=== PATIENT | female | born 1945 | race Caucasian/White ===

== ENCOUNTER 2019-10-12 14:14 | Inpatient (IN) ==
[2019-10-12] MEDS ORDERED: ACETAMINOPHEN 325 MG TAB PO PRN (18:04)
[2019-10-12] MEDS ORDERED: MELATONIN 3 MG TAB PO PRN (18:54)
--- NOTE | 2019-10-12 19:12 | History & Physical Report ---
Date of Service October 12, 2019 Assessment & Plan (1) Pelvic mass: -Admit to [facility] -Patient referred for direct admission by Dr. Arenas for concerns of ascites and further work-up of pelvic mass -For the past few weeks, patient has been having loose stools with worsening abdominal distention and discomfort. -CT ABD/pelvis 09/22/2019 Large pelvic mass or masses, inseparable from some of the pelvic bowel as well as uterus/adnexa. Underlying wall thickening of the rectosigmoid colon. This may reflect primary distal colonic tumor with ovarian and peritoneal metastases. Alternatively, this could reflect primary [employer] malignancy with extensive peritoneal metastases. Suspect left adrenal metastasis. Multiple lymph node metastases. -Patient was evaluated by outpatient [facility] and referred to [facility] oncology [facility], however they are awaiting biopsy before scheduling appointment -Check ultrasound for ascites, and if there is enough fluid, will order paracentesis with fluid studies for tomorrow -Ultrasound-guided biopsy of mass (this is been discussed with radiology) (2) Hypertension: -BP elevated, likely situational -Continue home amlodipine, carvedilol, losartan and make adjustments as needed (3) DVT prophylaxis: -SCDs due to procedure tomorrow Admission and Anticipated Discharge Date Admission Date: October 12, 2019 History of Present Illness Chief Complaint: Abdominal distention Primary Care Provider: Rachel Centeno MD 73-year-old female with PMH HTN, moderate mitral valve regurgitation, history of breast cancer, and other problems listed below who was referred for direct admission by Dr. Arenas for evaluation of suspected ascites. Patient reports about 1 month ago she developed loose, black stools. She was seen by her PCP who ordered a CT ABD/pelvis that showed a large pelvic mass with extensive peritoneal metastases. Patient was evaluated by [facility] and was referred to [facility] oncology. Patient has not had a biopsy performed yet. She was seen by Dr. Arenas today who was concerned for development of ascites and referred the patient for direct admission. Patient reports slowly progressive abdominal distention and discomfort over the past few weeks. She reports she continues to have loose stools. Patient reports her appetite has been fair. She denies nausea and vomiting. No fevers, chills, night sweats. Denies chest pain or shortness of breath. No lightheadedness, dizziness, diaphoresis, syncopal events. Denies urinary symptoms. At the time my exam, patient is resting in bed in no acute distress. Allergies Allergy/AdvReac Type Severity Reaction Status Date / Time No Known Allergies Allergy Unverified 09/22/19 19:50 Home Medications Home Medications Medication Instructions Recorded Confirmed Type Restasis 1 drp OPHTHALMIC (EYE) Q12H 08/18/18 10/12/19 History ergocalciferol (vitamin D2) 50,000 unit PO UD 08/18/18 10/12/19 History [Vitamin D2] multivitamin 1 tab PO QAM 08/18/18 10/12/19 History alum-mag hydroxide-simeth [Mylanta 5 ml PO QID PRN 09/22/19 10/12/19 History Maximum Strength] amlodipine [Norvasc] 5 mg PO DAILY 09/22/19 10/12/19 History ascorbic acid (vitamin C) [Vitamin 1 g PO DAILY 09/22/19 10/12/19 History C] atorvastatin [Lipitor] 10 mg PO DAILY 09/22/19 10/12/19 History carvedilol [Coreg] 3.125 mg PO BID 09/22/19 10/12/19 History cyanocobalamin (vitamin B-12) 3,000 mcg PO DAILY 09/22/19 10/12/19 History [Vitamin B-12] cyclosporine [Restasis] 1 drp OPB DAILY 09/22/19 10/12/19 History denosumab [Prolia] 60 mg SUBCUT .Q6MO 09/22/19 10/12/19 History indomethacin 50 mg PO TID PRN 09/22/19 10/12/19 History losartan [Cozaar] 100 mg PO DAILY 09/22/19 10/12/19 History melatonin-chamomile flower 1 tab PO HS 09/22/19 10/12/19 History potassium chloride 20 meq PO DAILY 09/22/19 10/12/19 History Past Med/Surg History Medical History Chronic back pain Degenerative disc disease History of breast cancer Rt - 17 years ago - S/p Rt mastectomy, chemo + radiation, Lt - 2018 - s/p lumpectomy x 2, raidation History of depression History of gastric ulcer History of kidney stones History of uterine fibroid Hypertension Limb alert care status RUE Malignant neoplasm of central portion of left breast in female, estrogen receptor negative (Inactive 02/26/17) "Abnormal left breast mammogram Status post ultrasound-guided stereotactic core needle biopsy February 26, 2017 Invasive lobular carcinoma grade 2 Estrogen receptor negative and progesterone receptor negative. Tumor size 2 mm. Unable to perform HER-2/ted testing. Status post needle localization lumpectomy and sentinel lymph node biopsy April 14, 2017 Stage pT1a pN0M0 Status post reexcision May 26, 2017, benign Status post medical oncology evaluation, chemotherapy not required Status post completion of radiation therapy September 08, 2017. She received 5130 centigrade utilizing hypo-fractionation." On 07/21/17 11:50 Razia Stephenson wrote "Abnormal left breast mammogram Status post ultrasound-guided stereotactic core needle biopsy February 26, 2017 Invasive lobular carcinoma grade 2 Estrogen receptor negative and progesterone receptor negative. Tumor size 2 mm. Unable to perform HER-2/ted testing. Status post needle localization lumpectomy and sentinel lymph node biopsy April 14, 2017 Stage pT1a pN0M0 Status post reexcision May 26, 2017, benign Status post medical oncology evaluation, chemotherapy not required" On 07/21/17 11:39 Razia Stephenson wrote "Abnormal left breast mammogram Status post ultrasound-guided stereotactic core needle biopsy February 26, 2017 Invasive lobular carcinoma grade 2 Estrogen receptor negative and progesterone receptor negative. Inadequate amount of tissue for HER-2/ted testing lesion 2 mm in size Status post needle localization lumpectomy and sentinel lymph node biopsy April 14, 2017 Stage pT1a pN0M0 Status post reexcision May 26, 2017, benign Status post medical oncology evaluation, chemotherapy not required" Osteoarthritis Osteoporosis Spinal stenosis Temporomandibular joint disorder Valvular heart disease Surgical History History of breast biopsy History of foot surgery BL History of lumpectomy of left breast x 2 History of tooth extraction Hx of right mastectomy Status post correction of deviated nasal septum Family History Father Esophageal cancer Social History Smoking Status: Former smoker Second Hand Exposure: No; Hx Alcohol Use: Yes Alcohol type: beer Hx Substance Use: No Preferred Language: Indonesian Communication Ability: Effective Shipper Receiver Required: No Beliefs That Will Affect Care: None Current Living Situation: Alone Current Living Situation Comment: senior apartments - [facility] Other Information That Helps Us Care for You: No Feels Safe at Home: Yes Safety Concerns: Feels Safe At This Time Review of Systems Review of Systems: ROS per HPI, all other systems reviewed and negative Physical Exam Constitutional: WD/WN, vitals as above Eyes: PERRL, conjunctivae normal, anicteric sclerae ENMT: external ear and nose normal, oropharynx normal Respiratory: normal respiratory effort, lungs clear to auscultation Cardiovascular: Rate/Rhythm: regular rate and regular rhythm Vessels: normal peripheral pulses Extremities: no edema Gastrointestinal (Abdomen): Inspection/Auscultation: + abdomen distended (Semi-firm) and normal bowel sounds Percussion/Palpation: abdomen nontender and no hepatosplenomegaly Musculoskeletal: no cyanosis or clubbing, extremities motor strength 5/5 Skin: no rashes, warm and dry Neurologic: PERRL, EOMI, accommodation nl, no face palsy, no dysarthria Psychiatric: A+Ox3, euthymic affect Results & Data Results & Data ([facility]) Vital Signs (Past 12 Hours) Vital Signs Temp Pulse Resp BP Pulse Ox 10/12/19 17:52 36.7 C 81 18 172/82 H 100 Code Status & VTE Plan Code Status Patient is a full code as per my discussion with her. VTE Prophylaxis Plan VTE Prophylaxis will be ordered: Yes Supervising Physician Co-Signing Physician Notes Patient was seen and examined by me, care coordinated with Marilyn Hu NP. Please see her note above for further details. Mrs. Camarillo is a 73-year-old female, with history of breast cancer, positive BRCA 1 gene, pulmonary hypertension, severe mitral regurg, moderate TR, hypertension, LVH, OA spinal stenosis who presents for evaluation of pelvic mass, as direct admission from oncology office, seen by Dr. Mc today. Mrs Camarillo reports having dark stools for the past 3 weeks, and was being evaluated by her PCP for that, obtaining imaging. She was informed of pelvic mass earlier, and was sent to emergency room. She was in the ED on September 22 wever at that time patient refused admission. She was however referred for gynecology and oncology follow-ups. She was seen by oncologist, Dr. Mc today, and due to concern for ascites, paracentesis was recommended, and given that there was no biopsy of her mass done yet, also recommend pelvic mass biopsy. Currently patient is sitting up in bed, in no acute distress. She denies any fevers, chills, chest pain, shortness of breath. She reports her abdomen feels very distended and she has to use bathroom -to urinate and have bowel movements, frequently. She denies any vomiting or poor appetite. She has persistent right lower quadrant pain/discomfort. She reports that she had to cut her pants at her waistline as her abdomen got bigger. She is alert and oriented, and answering questions appropriately. Lung sounds are clear to auscultation bilaterally, no wheezing rhonchi or crackles noted. Heart sounds are regular, with systolic murmur noted. She is able to move all extremities spontaneously and without difficulty, no lower extremity edema noted. Abdomen is distended, not rigid, bowel sounds are present, and there is right lower quadrant tenderness to palpation. Skin is warm, dry, well perfused, no rashes or lesions. Plan for abdominal ultrasound, and possible paracentesis tomorrow, and plan for biopsy of pelvic mass by radiology. Steffanie Gunn MD
[2019-10-12 19:46] LABS: Hematocrit (blood only) 29.9 % (37-47); Hemoglobin 10.3 g/dL (12.0-16.0); Mean Corpuscular Hemoglobin 29.6 pg (25-34); Mean Corpuscular Hgb Conc 34.4 g/dL (32-36); Mean Corpuscular Volume 85.9 fL (80-100); Mean Platelet Volume 8.3 fL (7.4-10.4); Platelet Count 630 K/uL (130-400); RDW Coefficient of Variation 13.6 % (11.5-14.5); Red Blood Count 3.48 M/uL (4.2-5.4); White Blood Count 8.69 K/uL (4.8-10.8)
[2019-10-12 19:53] LABS: Albumin Level 3.3 gm/dl (3.4-5.0); BUN Creatinine Ratio 31.4 (10-20); Calcium 9.7 mg/dl (8.5-10.1); Creatinine Clr Calc Pharmacy 76.1 ml/min; Est GFR (Non-African American) 100.1; Potassium 3.8 mmol/L (3.5-5.1); Prothrombin Time 10.3 Seconds (9.0-12.0)
[2019-10-12 19:56] LABS: Albumin Globulin Ratio 0.7 (0.9-2); Bilirubin,Total 0.3 mg/dl (0.2-1); Phosphorus 4.8 mg/dl (2.5-4.9); Total Protein 8.3 gm/dl (6.4-8.2)
[2019-10-12] MEDS: carvediloL 3.125 MG TAB PO SCH (21:23)
--- NOTE | 2019-10-13 06:34 | Ultrasound Report ---
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 Large, vascular and partially calcified mass in the abdomina l right lower quadrant mesentery/peritoneum measuring up to 9.1 cm. IMPRESSION: 1. Trace abdominopelvic ascites. No large drainable pocket identified. 2. Large pelvic mass redemonstrated. ACT 112: Negative or not required by law. The above report was generated using voice recognition software. It may contain grammatical, syntax o r spelling errors. Electronically signed by: Tomas Solano M.D. 10/13/2019 6:32 AM
[2019-10-13 07:41] LABS: Hemoglobin 10.2 g/dL (12.0-16.0); Mean Corpuscular Volume 88.2 fL (80-100); Platelet Count 544 K/uL (130-400); RDW Coefficient of Variation 13.8 % (11.5-14.5); RDW Standard Deviation 44.6 fL (36.4-46.3); White Blood Count 5.95 K/uL (4.8-10.8)
[2019-10-13 08:10] LABS: Calcium 8.9 mg/dl (8.5-10.1); Creatinine Clr Calc Pharmacy 60.4 ml/min; Est GFR (African American) 107.5; Est GFR (Non-African American) 92.7; Potassium 3.9 mmol/L (3.5-5.1)
[2019-10-13] MEDS ORDERED: AMLODIPINE BESYLATE 5 MG TAB PO SCH (09:00)
[2019-10-13] MEDS ORDERED: LOSARTAN POTASSIUM 50 MG TAB PO SCH (09:00)
[2019-10-13] MEDS ORDERED: ATORVASTATIN 10 MG TAB PO SCH (09:00)
[2019-10-13] MEDS: ALBUMIN 25% 50 ML IV SCH (10:03)
--- NOTE | 2019-10-13 10:03 | Ultrasound Report ---
US FNA w/img 1st lesion CLINICAL HISTORY: Large pelvic mass with peritoneal carcinomatosis. COMPARISON STUDY: CT abdomen and pelvis 09/22/2019. PROCEDURE: The risks, benefits, and alternatives to the procedure were discussed with the patient. Wr itten informed consent was obtained. The patient was placed supine in ultrasound, and the large heter ogeneous mass within the right hemipelvis was localized by ultrasound and selected for fine needle as piration. The right lower quadrant of the abdomen was prepped and draped in the usual sterile fashion and 1% lidocaine was used for local anesthesia. The mass was aspirated under ultrasound guidance wit h 5 passes utilizing 25-gauge needles. Specimens were reviewed by the pathologist in real-time and de emed adequate for diagnosis. The patient tolerated the procedure well and left the department in sati sfactory condition. IMPRESSION: Completed fine-needle aspiration of a large pelvic mass. Pathology pending. ACT 112: Negative or not required by law. The above report was generated using voice recognition software. It may contain grammatical, syntax o r spelling errors. Electronically signed by: Tomas Solano M.D. 10/13/2019 10:01 AM
[2019-10-13] MEDS: carvediloL 3.125 MG TAB PO SCH (11:15)
--- NOTE | 2019-10-13 13:28 | Hospitalist Progress Note ---
Date of Service October 13, 2019 Assessment & Plan (1) Pelvic mass: Possible due to malignant neoplasm pelvis Pt was sent to the ER as a direct admission from Oncology's office Dr. Mc for possible ascites and the work up for the pelvis mass CT ABD/pelvis 09/22/2019 showed Large pelvic mass or masses, inseparable from some of the pelvic bowel as well as uterus/adnexa. Underlying wall thickening of the rectosigmoid colon. This may reflect primary distal colonic tumor with ovarian and peritoneal metastases. Alternatively, this could reflect primary [employer] malignancy with extensive peritoneal metastases. Suspect left adrenal metastasis. Multiple lymph node metastases. Patient was evaluated by outpatient [employer] and referred to [facility] oncology [facility], however they are awaiting biopsy before scheduling appointment Abdominal u/s showed trace abdominopelvic ascites. No large drainable pocket identified. Large pelvic mass redemonstrated. Spoke to radiology team and there was no fluid to do a paracentesis S/P Completed fine-needle aspiration of a large pelvic mass mcfadden today by radiology. Pathology pending. CEA marker negative CA 19-9 and CA 125 pending Case discussed with Dr. Mc that advised the patient to call the Oncology's office on Wednesday Stable to discharge home (2) Hypertension: BP elevated, likely situational Continue home amlodipine, carvedilol, losartan Continue monitor BP and bring BP log at your next appointment with your PCP (3) Hyponatremia: Mostly chronic Na on admission 127, Na 129 on 09/22/19 Na 128 today Since pt is very anxious to go home, will nee to check BMP in 1 week Advised pt not to drink more than 1.8L fluid daily (4) DVT prophylaxis: SCDs/ Ambulating due to Biopsy Code status Full code Disposition Discharge home today Admission and Anticipated Discharge Date Admission Date: October 12, 2019 Subjective Pt was seen and examined Sitting in bed with no distress Pt said that she feels ok She had the biopsy done today for the pelvis mass She is very anxious to go home Denies any chest pain, palpitation, dizziness and SOB Physical Exam Physical Exam: General- No acute distress Head- atraumatic Eyes- PERRL, EOMI, ENT- oropharynx clear Neck- supple, no JVD Lungs- clear to auscultation Heart- regular rhythm; no murmur Abdomen- normal bowel sounds, firm in the lower part, nontender Extremities- no calf tenderness Neuro- alert, oriented x 3; PERRL, EOMI; no facial palsy; no dysarthria Skin- warm & dry Results & Data Results & Data ([facility]) Vital Signs (Past 12 Hours) Vital Signs Temp Pulse Resp BP Pulse Ox 10/13/19 07:43 36.7 C 70 16 145/70 H 96
--- NOTE | 2019-10-15 09:54 | Discharge Summary ---
Date of Service October 15, 2019 Admission HPI Per Admitting Provider 73-year-old female with PMH HTN, moderate mitral valve regurgitation, history of breast cancer, and other problems listed below who was referred for direct admission by Dr. Arenas for evaluation of suspected ascites. Patient reports about 1 month ago she developed loose, black stools. She was seen by her PCP who ordered a CT ABD/pelvis that showed a large pelvic mass with extensive peritoneal metastases. Patient was evaluated by [employer] and was referred to [facility] oncology. Patient has not had a biopsy performed yet. She was seen by Dr. Arenas today who was concerned for development of ascites and referred the patient for direct admission. Patient reports slowly progressive abdominal distention and discomfort over the past few weeks. She reports she continues to have loose stools. Patient reports her appetite has been fair. She denies nausea and vomiting. No fevers, chills, night sweats. Denies chest pain or shortness of breath. No lightheadedness, dizziness, diaphoresis, syncopal events. Denies urinary symptoms. At the time my exam, patient is resting in bed in no acute distress. Admission Exam Per Admitting Provider Constitutional: WD/WN, vitals as above Eyes: PERRL, conjunctivae normal, anicteric sclerae ENMT: external ear and nose normal, oropharynx normal Respiratory: normal respiratory effort, lungs clear to auscultation Cardiovascular: regular rate and regular rhythm Vessels: normal peripheral pulses Extremities: no edema Gastrointestinal: Inspection/Auscultation: + abdomen distended (Semi-firm) and n ormal bowel sounds Percussion/Palpation: abdomen nontender and no hepatosplenomegaly Musculoskeletal: no cyanosis or clubbing, extremities motor strength 5/5 Skin: no rashes, warm and dry Neurologic: PERRL, EOMI, accommodation nl, no face palsy, no dysarthria Psychiatric: A+Ox3, euthymic affect Principal Diagnosis Pelvic mass: Hypertension: Hyponatremia: Discharge Exam General- No acute distress Head- atraumatic Eyes- PERRL, EOMI, ENT- oropharynx clear Neck- supple, no JVD Lungs- clear to auscultation Heart- regular rhythm; no murmur Abdomen- normal bowel sounds, firm in the lower part, nontender Extremities- no calf tenderness Neuro- alert, oriented x 3; PERRL, EOMI; no facial palsy; no dysarthria Skin- warm & dry Discharge Data Allergies Allergy/AdvReac Type Severity Reaction Status Date / Time No Known Allergies Allergy Unverified 09/22/19 19:50 Ordered Studies 10/12/19 18:04 US abdomen ltd ascites Routine 10/13/19 08:00 US FNA w/img 1st lesion Routine US abdomen ltd ascites HISTORY: 73 years-old 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 Large, vascular and partially calcified mass in the abdominal right lower quadrant mesentery/peritoneum measuring up to 9.1 cm. IMPRESSION: 1. Trace abdominopelvic ascites. No large drainable pocket identified. 2. Large pelvic mass redemonstrated. ACT 112: Negative or not required by law. The above report was generated using voice recognition software. It may contain grammatical, syntax or spelling errors. Electronically signed by: Tomas Solano M.D. 10/13/2019 6:32 AM Dictated: 10/13/19629 Transcribed: 10/13/1930 US FNA w/img 1st lesion CLINICAL HISTORY: Large pelvic mass with peritoneal carcinomatosis. COMPARISON STUDY: CT abdomen and pelvis 09/22/2019. PROCEDURE: The risks, benefits, and alternatives to the procedure were discussed with the patient. Written informed consent was obtained. The patient was placed supine in ultrasound, and the large heterogeneous mass within the right hemipelvis was localized by ultrasound and selected for fine needle aspiration. The right lower quadrant of the abdomen was prepped and draped in the usual sterile fashion and 1% lidocaine was used for local anesthesia. The mass was aspirated under ultrasound guidance with 5 passes utilizing 25-gauge needles. Specimens were reviewed by the pathologist in real-time and deemed adequate for diagnosis. The patient tolerated the procedure well and left the department in satisfactory condition. IMPRESSION: Completed fine-needle aspiration of a large pelvic mass. Pathology pending. ACT 112: Negative or not required by law. The above report was generated using voice recognition software. It may contain grammatical, syntax or spelling errors. Electronically signed by: Tomas Solano M.D. 10/13/2019 10:01 AM Dictated: 10/13/19958 Transcribed: 10/13/19958 Hospital Course (1) Pelvic mass: Possible due to malignant neoplasm pelvis Pt was sent to the ER as a direct admission from Oncology's office Dr. Mc for possible ascites and the work up for the pelvis mass CT ABD/pelvis 09/22/2019 showed Large pelvic mass or masses, inseparable from some of the pelvic bowel as well as uterus/adnexa. Underlying wall thickening of the rectosigmoid colon. This may reflect primary distal colonic tumor with ovarian and peritoneal metastases. Alternatively, this could reflect primary [employer] malignancy with extensive peritoneal metastases. Suspect left adrenal metastasis. Multiple lymph node metastases. Patient was evaluated by outpatient [employer] and referred to [facility] oncology [facility], however they are awaiting biopsy before scheduling appointment Abdominal u/s showed trace abdominopelvic ascites. No large drainable pocket identified. Large pelvic mass redemonstrated. Spoke to radiology team and there was no fluid to do a paracentesis S/P Completed fine-needle aspiration of a large pelvic mass mcfadden today by radiology. Pathology pending. CEA marker negative CA 19-9 and CA 125 pending Case discussed with Dr. Mc that advised the patient to call the Oncology's office on Wednesday Stable to discharge home (2) Hypertension: BP elevated, likely situational Continue home amlodipine, carvedilol, losartan Continue monitor BP and bring BP log at your next appointment with your PCP (3) Hyponatremia: Mostly chronic Na on admission 127, Na 129 on 09/22/19 Na 128 today Since pt is very anxious to go home, will nee to check BMP in 1 week Advised pt not to drink more than 1.8L fluid daily (4) DVT prophylaxis: SCDs/ Ambulating due to Biopsy Code status Full code Disposition Discharge home today Total Time Total Time Spent Total Time Spent (In Minutes): 35 minutes Total Time Includes: Examination of the Patient, Discharge Planning, Medication Reconciliation, Communication With Other Providers and Other Discharge Plan Discharge Items Patient Disposition: Home - Self-Care Reason For Visit: ASCITES Discharge Diagnosis: Pelvic mass: Hypertension: Hyponatremia: Activity: Resume your previous activity Non-emergency contact: Primary Care Provider, Device Engineer and Oncologist Call non-emergency contact if: you have any medication questions Follow-up/Referrals: Rachel Centeno MD [Primary Care Provider] - Diet: Heart Healthy Addtl Attending Provider Instructions: Follow up with your primary care provider Dr. Centeno on 10/16 @ 2:20 PM Follow up with Oncology Dr. cM to review the biopsy pathology report (Please call the office on Wednesday ) Please follow up with outpatient Quality Nurse oncology at [facility] Fluid restriction with 1.8 liters daily due to low sodium level Check BMP in 1 week to monitor your electrolytes Pending Studies at Discharge: Yes Studies:: Biopsy report for the Pelvis mass Stand-Alone Forms: [facility], Smoking Cessation Medications and DC Order Prescriptions: Continued multivitamin Tablet 1 tab PO QAM RF: 0 ergocalciferol (vitamin D2) [Vitamin D2] 50,000 unit Capsule 50,000 unit PO UD RF: 0 Restasis 0.05 % Dropperette 1 drp OPHTHALMIC (EYE) Q12H RF: 0 ascorbic acid (vitamin C) [Vitamin C] 1,000 mg Tablet 1 g PO DAILY RF: 0 atorvastatin [Lipitor] 10 mg tablet 10 mg PO DAILY RF: 0 cyanocobalamin (vitamin B-12) [Vitamin B-12] 1,000 mcg Tablet 3,000 mcg PO DAILY RF: 0 amlodipine [Norvasc] 5 mg tablet 5 mg PO DAILY RF: 0 carvedilol [Coreg] 3.125 mg tablet 3.125 mg PO BID RF: 0 potassium chloride 20 mEq/15 mL liquid 20 meq PO DAILY RF: 0 indomethacin 50 mg capsule 50 mg PO TID PRN (Reason: Pain) RF: 0 losartan [Cozaar] 100 mg tablet 100 mg PO DAILY RF: 0 alum-mag hydroxide-simeth [Mylanta Maximum Strength] 400-400-40 mg/5 mL Suspension 5 ml PO QID PRN (Reason: Indigestion) RF: 0 Restasis 0.05 % dropperette 1 drp OPB DAILY RF: 0 Prolia 60 mg/mL Syringe 60 mg SUBCUT .Q6MO RF: 0 melatonin-chamomile flower 3-500 mg-mcg Tablet 1 tab PO HS RF: 0 Discharge Orders: Discharge Order (Routine); Ordered 10/13/19 Ordered By: Aliza Andres Admission Data Admit Date/Time: 10/12/19 17:39 Attending Provider: Aliza Andres Admit Provider: Rufino Gunn Primary Care Provider: Rachel Centeno Other Providers: Rufino Gunn Other Interventions: Discharge Summary Assessment (RN) Last Done: 10/13/19 14:06 DC Date/Time DO NOT enter until pt leaves facility: 10/13/19 14:28
[2019-10-16 11:52] LABS: CA 125 16436 U/mL (<35); Cancer Antigen 19-9 9 U/mL (<34)
== END 2019-10-13 14:28 | disposition home or self-care (01) | DRG 755 ==
LOC: 3W 17:39 → SUATTDRO 17:39

== ENCOUNTER 2021-06-11 13:24 | Observation (INO) ==
[2021-06-11] MEDS ORDERED: ALBUT/IPRATROP 3MG/0.5MG NEB 3 ML VIAL NEB STA (13:40)
[2021-06-11] MEDS ORDERED: SODIUM CHLORIDE 0.9% 500 ML IV STA (13:40)
[2021-06-11] MEDS ORDERED: ALBUTEROL 0.083% NEBU SOLN 3 ML VIAL ONE (13:41)
--- NOTE | 2021-06-11 13:51 | Emergency Department Note ---
Impression & Plan Allergic drug reaction, Anaphylaxis, Acute bronchospasm, Acute hyponatremia ED Provider Note NAME: KIRSTEN YEE AGE: 75 SEX: F : 1945 ARRIVES VIA: Ambulance INFORMANT: Patient, ED PROVIDER(S): Edmond Anne DO CHIEF COMPLAINT: Allergic reaction HPI: The patient is a 75-year-old female who presented to the emergency department for an evaluation of allergic reaction. The patient has a history of metastatic ovarian cancer. She is received chemotherapy and radiation in the past. The patient even received debulking surgery in the past as well. She started following with the cancer center again because of recurrence of metastatic disease. She was sent directly from the cancer center today after she received a dose of chemotherapy and had allergic reaction. She received steroids Benadryl and H2 blockers prior to arrival. She was found to be diaphoretic and significant shortness of breath. She arrived and was placed in the room B2. At this time the patient states she continues to have abdominal di stention is as well as shortness of breath. The patient denies having any swelling in the mouth. From reading her previous records she may have had a similar episode in the past in 2020. ROS: See above HPI for pertinent positives & negatives. A total of 10 systems reviewed and were otherwise negative. PAST MEDICAL HISTORY: See Below PAST SURGICAL HISTORY: See Below FAMILY HISTORY: See Below SOCIAL HISTORY: See Below HOME MEDICATIONS: See Below ALLERGIES: See Below VITALS: See Below PHYSICAL EXAMINATION: GENERAL: The patient is awake and alert. The patient is very anxious appearing. EYES: The conjunctivae are clear. The pupils are round and reactive. EARS, NOSE, MOUTH AND THROAT: The nose is without any evidence of any deformity. Mucous members are dry. There is no swelling in the posterior oropharynx. NECK: The neck is nontender and supple. There is no stridor appreciated. RESPIRATORY: Shallow respirations were noted. There is wheezing noted in the upper lung fermin. CARDIOVASCULAR: Regular rate and rhythm noted there no murmurs rubs or gallops normal S1 normal S2. GASTROINTESTINAL: The abdomen is distended. There is diffuse tenderness to pa lpation. MUSCULOSKELETAL/EXTREMITIES: There is no evidence of gross deformity full range of motion is noted in the hips and shoulders. SKIN: The skin is cool and diaphoretic. NEUROLOGIC: Patient is awake alert and oriented x3 MEDICAL DECISION MAKING: The patient is a 75-year-old female who presented to the emergency department from the [facility] for an evaluation of difficulty breathing and allergic reaction. The patient received a medication at the [facility] for chemotherapy. She had an immediate reaction. She was treated prior to arrival with steroids as well as antihistamines H2 blockers and oxygen. She was further treated here with bronchodilator therapy. She was reevaluated multiple times. She was feeling much better on subsequent reevaluation. I discussed the patient's laboratory results with her. I also [facility] I do feel the patient's allergic reaction was very significant and she requires inpatient management but also the patient has worsening abdominal distention which is likely secondary to her underlying ovarian cancer history. She may require further work-up or imaging for this as well. The patient was reevaluated multiple times. Triage Nursing notes reviewed. Prior medical records reviewed Vital Signs: reviewed and remarkable for initial hypoxia tachycardia and elevated blood pressure. Differential diagnosis: Allergic reaction, anaphylaxis, urticaria, Ingram-Ronnie syndrome, toxic epidermal necrolysis, erythema multiforme, contact dermatitis, cellulitis, as well as other pathologies. ER treatment provided: See below Diagnostics interpreted by me: ECG: EKG was obtained in the emergency department. My interpretation was sinus tachycardia at 102 bpm. PVCs were noted. Poor R wave progression was noted. This was compared to a tracing from September [id number]. Poor R wave progression is new and increased compared to previous tracing. Cardiac Monitoring: An order was placed for continuous cardiac monitoring. The monitor shows a rate of 105 bpm with sinus tachycardia. Laboratory studies: As stated above and show below. Imaging studies: See below Consultation(s): I discussed this case [facility] They have agreed to evaluate the patient in the emergency department for further management and disposition. 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 followed with physical therapy. Valvular heart disease follows with [facility] Cardiology Dr Shabazz; moderate MR, mild global hypokinesis LV, RVSP 40-50mmHg Surgical History H/O knee surgery left knee reconstruction H/O: hysterectomy History of breast biopsy History of foot surgery BL History of lumpectomy of left breast x 2 2019 History of tooth extraction Hx of right mastectomy with lymph node removal 1991 Port-A-Cath in place (06/09/21) Insertion of Access Port with Fluoroscopy(Left) - Amador Archibald DO, FACS 06/09/2021 Status post correction of deviated nasal septum Family History Father Esophageal cancer Social History Smoking Status: Never smoker Years Smoked: 20; Cigarettes Per Day: 2; Second Hand Exposure: No; Hx Alcohol Use: Yes Alcohol type: beer Hx Substance Use: No Preferred Language: Vietnamese Communication Ability: Effective 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: No Beliefs That Will Affect Care: None Current Living Situation: Alone Current Living Situation Comment: Lives in [address] building Feels Safe at Home: Yes Assistive Devices: Glasses Allergies Allergies Allergy/AdvReac Type Severity Reaction Status Date / Time ENVIRONMENTAL Allergy Severe IF EXPOSED Uncoded 06/11/21 15:13 TOO LONG--THROAT CLOSES Home Meds Home Medications Medication Instructions Recorded Confirmed cyclosporine 0.05 % eye drops in a 1 drp OPHTHALMIC (EYE) Q12H 08/18/18 06/11/21 dropperette (Restasis) ergocalciferol (vitamin D2) 1,250 50,000 unit PO UD 08/18/18 06/11/21 mcg (50,000 unit) capsule (Vitamin D2) ascorbic acid (vitamin C) 1,000 mg 1 g PO QAM 09/22/19 06/11/21 tablet (Vitamin C) atorvastatin 10 mg tablet (Lipitor) 10 mg PO QPM 09/22/19 06/11/21 cyanocobalamin (vitamin B-12) 3,000 mcg PO QAM 09/22/19 06/11/21 1,000 mcg tablet (Vitamin B-12) denosumab 60 mg/mL subcutaneous 60 mg SUBCUT .Q6MO 09/22/19 06/11/21 syringe (Prolia) losartan 100 mg tablet (Cozaar) 100 mg PO QAM 09/22/19 06/11/21 ondansetron 8 mg disintegrating 8 mg PO Q8H PRN 12/13/19 06/11/21 tablet magnesium oxide 400 mg PO HS 05/14/21 06/11/21 potassium chloride 20 mEq 10 meq PO QAM 05/14/21 06/11/21 tablet,extended release prochlorperazine maleate 10 mg 10 mg PO Q6H PRN 05/14/21 06/11/21 tablet carvedilol 6.25 mg tablet (Coreg) 6.25 mg PO BID 06/09/21 06/11/21 pantoprazole 40 mg tablet,delayed 40 mg PO BID 06/11/21 06/11/21 release Results & Data (ED) Vital Signs Vital Signs - 24 hr 06/11/21 13:28 06/11/21 13:30 06/11/21 13:40 Temperature 36.9 C Temperature Source Oral Pulse Rate 121 H Pulse Rate [Apical] Pulse Strength [Apical] Respiratory Rate Respiratory Effort / Characteristics Respiratory Depth Respiratory Pattern Blood Pressure 221/143 H Blood Pressure [Right Arm] Blood Pressure Mean 169 Blood Pressure Mean [Right Arm] Blood Pressure Position [Right Arm] Pulse Oximetry 89 L 93 Oxygen Delivery Method Room Air Room Air Nasal Cannula Oxygen Flow Rate 2 2 Sepsis Recent Fever Within 48 Hours No Sepsis New/Unexplained Change in Mental Status No Sepsis Action Taken by Nursing No Action Required 06/11/21 14:15 06/11/21 15:14 06/11/21 17:00 Temperature Temperature Source Pulse Rate Pulse Rate [Apical] 102 H 113 H 105 H Pulse Strength [Apical] Normal Normal Respiratory Rate 21 20 20 Respiratory Effort / Characteristics Non-Labored Spontaneous Non-Labored Spontaneous Non-Labored Spontaneous Respiratory Depth Normal Normal Normal Respiratory Pattern Regular Regular Blood Pressure Blood Pressure [Right Arm] 191/109 H 192/122 H Blood Pressure Mean Blood Pressure Mean [Right Arm] 136 145 Blood Pressure Position [Right Arm] Right Lateral Sitting Pulse Oximetry 94 96 93 Oxygen Delivery Method Room Air Nasal Cannula Nasal Cannula Oxygen Flow Rate 4 4 Sepsis Recent Fever Within 48 Hours Sepsis New/Unexplained Change in Mental Status Sepsis Action Taken by Alf Medications Current Medication List: was personally reviewed by me Laboratory Data Attestation: I reviewed the patient's lab results. Result diagrams: 06/11/21 13:50 06/11/21 13:50 Lab Results 06/11/21 06/11/21 06/11/21 Range/Units 13:50 13:50 13:50 WBC 8.97 (4.8-10.8) K/uL RBC 3.55 L (4.2-5.4) M/uL Hgb 11.4 L (12.0-16.0) g/dL Hct 34.3 L (37-47) % MCV 96.6 (80-100) fL MCH 32.1 (25-34) pg MCHC 33.2 (32-36) g/dL RDW Std Deviation 49.8 H (36.4-46.3) fL RDW Coeff of Cain 14.1 (11.5-14.5) % Plt Count 341 (130-400) K/uL MPV 9.1 (7.4-10.4) fL Immature Gran % (Auto) 0.3 % Neut % (Auto) 93.5 % Lymph % (Auto) 4.6 % Floyd % (Auto) 1.3 % Eos % (Auto) 0.2 % Baso % (Auto) 0.1 % Neut # (Auto) 8.38 H (1.4-6.5) K/uL Lymph # (Auto) 0.41 L (1.2-3.4) K/uL Floyd # (Auto) 0.12 (0.11-0.59) K/uL Eos # (Auto) 0.02 (0-0.5) K/uL Baso # (Auto) 0.01 (0-0.2) K/uL Immature Gran # (Auto) 0.03 H (0.00-0.02) K/uL PT 11.6 (9.0-12.0) Seconds INR 1.1 (0.9-1.1) APTT 23.6 (21.0-31.0) Seconds PTT Ratio 0.9 Sodium 132 L (136-145) mmol/L Potassium 3.3 L (3.5-5.1) mmol/L Chloride 96 L (98-107) mmol/L Carbon Dioxide 23 (21-32) mmol/L Anion Gap 13 H (3-11) BUN 11 (6-23) mg/dl Creatinine 0.54 L (0.6-1.2) mg/dl Est Cr Clr Drug Dosing 66.2 ml/min Est GFR ( Amer) 108.5 ml/min Est GFR (Non-Af Amer) 93.6 ml/min BUN/Creatinine Ratio 20.4 H (10-20) Glucose 291 H (70-99(Fasting)) mg/dl Calcium 8.6 (8.5-10.1) mg/dl Total Bilirubin 0.7 (0.2-1.0) mg/dl AST 23 (13-39) U/L ALT 18 (7-52) U/L Alkaline Phosphatase 50 (34-104) U/L Troponin I 0.03 (0-0.04) ng/ml Total Protein 7.3 (6.0-8.3) gm/dl Albumin 4.2 (3.4-5.0) gm/dl Globulin 3.1 (2.5-4.0) gm/dl Albumin/Globulin Ratio 1.4 (0.9-2) Lipase 13 (11-82) U/L SARS-CoV-2, RNA, NAAT (NEGATIVE) 06/11/21 Range/Units 15:05 WBC (4.8-10.8) K/uL RBC (4.2-5.4) M/uL Hgb (12.0-16.0) g/dL Hct (37-47) % MCV (80-100) fL MCH (25-34) pg MCHC (32-36) g/dL RDW Std Deviation (36.4-46.3) fL RDW Coeff of Cain (11.5-14.5) % Plt Count (130-400) K/uL MPV (7.4-10.4) fL Immature Gran % (Auto) % Neut % (Auto) % Lymph % (Auto) % Floyd % (Auto) % Eos % (Auto) % Baso % (Auto) % Neut # (Auto) (1.4-6.5) K/uL Lymph # (Auto) (1.2-3.4) K/uL Floyd # (Auto) (0.11-0.59) K/uL Eos # (Auto) (0-0.5) K/uL Baso # (Auto) (0-0.2) K/uL Immature Gran # (Auto) (0.00-0.02) K/uL PT (9.0-12.0) Seconds INR (0.9-1.1) APTT (21.0-31.0) Seconds PTT Ratio Sodium (136-145) mmol/L Potassium (3.5-5.1) mmol/L Chloride (98-107) mmol/L Carbon Dioxide (21-32) mmol/L Anion Gap (3-11) BUN (6-23) mg/dl Creatinine (0.6-1.2) mg/dl Est Cr Clr Drug Dosing ml/min Est GFR ( Amer) ml/min Est GFR (Non-Af Amer) ml/min BUN/Creatinine Ratio (10-20) Glucose (70-99(Fasting)) mg/dl Calcium (8.5-10.1) mg/dl Total Bilirubin (0.2-1.0) mg/dl AST (13-39) U/L ALT (7-52) U/L Alkaline Phosphatase (34-104) U/L Troponin I (0-0.04) ng/ml Total Protein (6.0-8.3) gm/dl Albumin (3.4-5.0) gm/dl Globulin (2.5-4.0) gm/dl Albumin/Globulin Ratio (0.9-2) Lipase (11-82) U/L SARS-CoV-2, RNA, NAAT NEGATIVE (NEGATIVE) Administered Medications Methylprednisolone (Methylprednisolone 40 Mg/Ml Vial) 40 mg IV Q8H [facility] Stop: 06/13/21 15:59 Last Admin: 06/11/21 16:10 Dose: 40 mg Documented by: [id number] Discontinued Medications Albuterol (Albuterol 0.083% Nebu Soln 3 Ml Vial) Confirm Administered Dose 2.5 mg .ROUTE .STK-MED ONE Stop: 06/11/21 13:42 Last Admin: 06/11/21 13:43 Dose: Not Given Documented by: [id number] Albuterol (Albut/Ipratrop 3mg/0.5mg Neb 3 Ml Vial) 3 ml NEB NOW STA; Protocol Stop: 06/11/21 13:41 Last Admin: 06/11/21 13:43 Dose: 3 ml Documented by: [id number] Sodium Chloride (Nss) 500 mls @ 999 mls/hr IV .Q31M STA Stop: 06/11/21 14:10 Last Infusion: 06/11/21 14:55 Dose: 0 mls/hr Documented by: [id number] Admin: 06/11/21 13:55 Dose: 999 mls/hr Documented by: [id number] Potassium Chloride (Potassium Chloride 20 Meq/15 Ml Udc) 40 meq PO ONE ONE Stop: 06/11/21 16:23 Last Admin: 06/11/21 16:32 Dose: 40 meq Documented by: [id number] Imaging Data Radiologist's Impression: Chest X-Ray 06/11/21 13:40 XR chest 1V portable CLINICAL HISTORY: Atypical chest pain. COMPARISON STUDY: Chest CT March 18, 2021. Chest radiograph June 09, 2021. FINDINGS: Left internal jugular [id number], right mastectomy and right axillary surgical clips are present. Cardiomegaly is unchanged. There is no pneumothorax. Small bilateral pleural effusions are present. Pulmonary edema has progressed. IMPRESSION: Progression of pulmonary edema with interval development of small bilateral pleural effusions. ACT 112: Negative or not required by law. Electronically signed by: Curtis Whyte M.D. 06/11/2021 2:04 PM Discharge Plan Visit Data Chief Complaint: Allergic Reaction Stated Complaint: ALLERGIC REACTION ED Provider: Edmond Anne Discharge Problem: Allergic drug reaction, Anaphylaxis, Acute bronchospasm, Acute hyponatremia Patient Disposition: Being Evaluated by Hospitalist Forms Stand Alone Forms: My [facility] Prescriptions Prescriptions: No Action magnesium oxide 400 mg magnesium tablet 400 mg PO HS RF: 0 prochlorperazine maleate 10 mg tablet 10 mg PO Q6H PRN (Reason: nausea and vomiting) RF: 0 potassium chloride 20 mEq tablet extended release 10 meq PO QAM RF: 0 ondansetron 8 mg Tablet,Disintegrating 8 mg PO Q8H PRN (Reason: Nausea) RF: 0 ergocalciferol (vitamin D2) [Vitamin D2] 50,000 unit Capsule 50,000 unit PO UD RF: 0 cyclosporine [Restasis] 0.05 % Dropperette 1 drp OPHTHALMIC (EYE) Q12H RF: 0 ascorbic acid (vitamin C) [Vitamin C] 1,000 mg Tablet 1 g PO QAM RF: 0 atorvastatin [Lipitor] 10 mg tablet 10 mg PO QPM RF: 0 cyanocobalamin (vitamin B-12) [Vitamin B-12] 1,000 mcg Tablet 3,000 mcg PO QAM RF: 0 losartan [Cozaar] 100 mg tablet 100 mg PO QAM RF: 0 Prolia 60 mg/mL Syringe 60 mg SUBCUT .Q6MO RF: 0 carvedilol [Coreg] 6.25 mg tablet 6.25 mg PO BID RF: 0 pantoprazole 40 mg tablet,delayed release (DR/EC) 40 mg PO BID RF: 0 Referrals Referrals: Rachel Centeno MD [Primary Care Provider] -
--- NOTE | 2021-06-11 14:05 | XRay Report ---
XR chest 1V portable CLINICAL HISTORY: Atypical chest pain. COMPARISON STUDY: Chest CT March 18, 2021. Chest radiograph June 09, 2021. FINDINGS: Left internal jugular [id number], right mastectomy and right axillary surgical clips are present. Cardiomegaly is unchanged. There is no pneumothorax. Small bilateral pleural effusions are present. Pulmonary edema has progressed. IMPRESSION: Progression of pulmonary edema with interval development of small bilateral pleural effu sions. ACT 112: Negative or not required by law. Electronically signed by: Curtis Whyte M.D. 06/11/2021 2:04 PM
[2021-06-11 14:07] LABS: Basophils # (auto) 0.01 K/uL (0-0.2); Basophils % (auto) 0.1 %; Eosinophils # (auto) 0.02 K/uL (0-0.5); Eosinophils % (auto) 0.2 %; Hematocrit (blood only) 34.3 % (37-47); Hemoglobin 11.4 g/dL (12.0-16.0); Immature Granulocytes # (auto) 0.03 K/uL (0.00-0.02); Immature Granulocytes % (auto) 0.3 %; Lymphocytes # (auto) 0.41 K/uL (1.2-3.4); Lymphocytes % (auto) 4.6 %; Mean Corpuscular Hemoglobin 32.1 pg (25-34); Mean Corpuscular Hgb Conc 33.2 g/dL (32-36); Mean Corpuscular Volume 96.6 fL (80-100); Mean Platelet Volume 9.1 fL (7.4-10.4); Monocytes # (auto) 0.12 K/uL (0.11-0.59); Monocytes % (auto) 1.3 %; Neutrophils # (auto) 8.38 K/uL (1.4-6.5); Neutrophils % (auto) 93.5 %; Platelet Count 341 K/uL (130-400); RDW Coefficient of Variation 14.1 % (11.5-14.5); RDW Standard Deviation 49.8 fL (36.4-46.3); Red Blood Count 3.55 M/uL (4.2-5.4); White Blood Count 8.97 K/uL (4.8-10.8)
[2021-06-11 14:19] LABS: INR 1.1 (0.9-1.1); Partial Thromboplastin Ratio 0.9; Partial Thromboplastin Time 23.6 Seconds (21.0-31.0); Prothrombin Time 11.6 Seconds (9.0-12.0)
[2021-06-11 14:39] LABS: Albumin Globulin Ratio 1.4 (0.9-2); Albumin Level 4.2 gm/dl (3.4-5.0); BUN Creatinine Ratio 20.4 (10-20); Bilirubin,Total 0.7 mg/dl (0.2-1.0); Calcium 8.6 mg/dl (8.5-10.1); Creatinine Clr Calc Pharmacy 66.2 ml/min; Est GFR (African American) 108.5 ml/min; Est GFR (Non-African American) 93.6 ml/min; Globulin 3.1 gm/dl (2.5-4.0); Potassium 3.3 mmol/L (3.5-5.1); Total Protein 7.3 gm/dl (6.0-8.3)
[2021-06-11 14:40] LABS: Troponin I 0.03 ng/ml (0-0.04)
--- NOTE | 2021-06-11 15:31 | History & Physical Report ---
Date of Service June 11, 2021 Assessment & Plan (1) Allergic drug reaction: Plan: Allergic Drug Reaction Secondary to doxorubicin Acute respiratory failure with hypoxia --CTA:No evidence for pulmonary embolus. Pulmonary edema with small bilateral pleural effusions and cardiomegaly. A few subcentimeter nodules within the upper lung zones measure up to 4 mm. These are nonspecific but could be due to the pulmonary edema. [address] follow-up recommended to ensure resolution. Focal area of consolidation within the base of the lingula. This may represent atelectasis or developing pneumonia. Interval placement of a left jugular Port-A-Cath which terminates at the SVC. No evidence for metastatic disease within the chest. -Started on Solu-Medrol, Pepcid, Benadryl Discussed with oncology Continue supplemental oxygen as needed Nebs as needed Monitor for airway compromise Hypertensive urgency Patient admits to not taking her blood pressure medications this morning Restart carvedilol, losartan IV labetalol as needed Abdominal distention Concern for developing partial large bowel obstruction -CT ABD:Interval progression of the peritoneal metastatic disease as described above. This is most pronounced within the deep pelvis which demonstrates an 8 x 6 cm solid and cystic perirectal mass consistent with metastatic disease. This results in mass effect along the rectum. The colon proximal to this lesion is borderline dilated and demonstrates a large amount well-formed stool. Therefore, this raises the possibility developing partial large bowel obstruction. The bladder distended. No bladder wall thickening. -Started on bowel regimen KUB in the morning Consider surgical evaluation. Hypokalemia Chronic hyponatremia Replace electrolytes as needed Received gentle IV fluids Alcohol use disorder Drinks 1-2 beers daily as per patient Thiamine, folic acid At risk Ativan Monitor for withdrawal Recurrent Metastatic ovarian cancer S/P surgery on going chemotherapy Follows with Hyperglycemia H/O Prediabetes Check HbA1C Insulin sliding scale given IV steroids use Monitor BGs DVT Px: Lovenox SQ Code Status Full Code as per my discussion with patient History of Present Illness Chief Complaint: Allergic Reaction Primary Care Provider: Rachel Centeno MD Patient is a 75-year-old female with history of metastatic ovarian cancer, hypertension, pulmonary hypertension, hyponatremia, alcohol use disorder, GERD, prediabetes, history of breast cancer and other medical problems presents for evaluation of allergic reaction from chemotherapy. Patient was scheduled for chemotherapy today. Patient follows with [facility] oncology Dr. Slater . Patient was pretreated with dexamethasone, Emend, Aloxi prior to chemotherapy. Patient was started on doxorubicin and had been continued for about 12 minutes after which patient developed significant back pain radiating to left lower extremity associated with shortness of breath, became very restless and agitated and felt abdomen to be bloated. Chemotherapy was immediately discontinued and patient received hydrocortisone, Famotidine and Benadryl. Patient was short of breath, wheezing while in ED and received nebs. She states having reaction to Taxol in April 2021 and was discontinued. Patient states feeling abdominal bloating and intermittent diarrhea associated with constipation lately. She denies any significant abdominal pain with reports having pressure-like sensation. Last bowel movement was 2 days ago. Admits to having decreased appetite. Denies any history of chest pain, palpitations, dizziness, cough, fever, chills, headache, change in vision, nausea, vomiting, dysuria. Allergies Allergy/AdvReac Type Severity Reaction Status Date / Time doxorubicin Allergy Severe Verified 06/11/21 20:18 ENVIRONMENTAL Allergy Severe IF EXPOSED Uncoded 06/11/21 15:13 TOO LONG--THROAT CLOSES Home Medications Medication Instructions Recorded Confirmed Type cyclosporine 0.05 % eye drops in a 1 drp OPHTHALMIC (EYE) Q12H 08/18/18 06/11/21 History dropperette (Restasis) ergocalciferol (vitamin D2) 1,250 50,000 unit PO UD 08/18/18 06/11/21 History mcg (50,000 unit) capsule (Vitamin D2) ascorbic acid (vitamin C) 1,000 mg 1 g PO QAM 09/22/19 06/11/21 History tablet (Vitamin C) atorvastatin 10 mg tablet (Lipitor) 10 mg PO QPM 09/22/19 06/11/21 History cyanocobalamin (vitamin B-12) 3,000 mcg PO QAM 09/22/19 06/11/21 History 1,000 mcg tablet (Vitamin B-12) denosumab 60 mg/mL subcutaneous 60 mg SUBCUT .Q6MO 09/22/19 06/11/21 History syringe (Prolia) losartan 100 mg tablet (Cozaar) 100 mg PO QAM 09/22/19 06/11/21 History ondansetron 8 mg disintegrating 8 mg PO Q8H PRN 12/13/19 06/11/21 History tablet magnesium oxide 400 mg PO HS 05/14/21 06/11/21 History potassium chloride 20 mEq 10 meq PO QAM 05/14/21 06/11/21 History tablet,extended release prochlorperazine maleate 10 mg 10 mg PO Q6H PRN 05/14/21 06/11/21 History tablet carvedilol 6.25 mg tablet (Coreg) 6.25 mg PO BID 06/09/21 06/11/21 History pantoprazole 40 mg tablet,delayed 40 mg PO BID 06/11/21 06/11/21 History release Past Med/Surg History Medical History Arthritis Chronic back pain Degenerative disc disease History of breast cancer Rt - 17 years ago - S/p Rt mastectomy, chemo + radiation, Lt - 2018 - s/p lumpectomy x 2, raidation History of depression History of gastric ulcer History of kidney stones History of uterine fibroid Hypertension Limb alert care status RUE Malignant neoplasm of central portion of left breast in female, estrogen receptor negative 2016 Osteoarthritis Osteoporosis Ovarian cancer Spinal stenosis 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 followed with physical therapy. Valvular heart disease [place] [facility] [place] Shabazz; moderate MR, mild global hypokinesis LV, RVSP 40-50mmHg Surgical History H/O knee surgery left knee reconstruction H/O: hysterectomy History of breast biopsy History of foot surgery BL History of lumpectomy of left breast x 2 2019 History of tooth extraction Hx of right mastectomy with lymph node removal 1991 Port-A-Cath in place (06/09/21) Insertion of Access Port with Fluoroscopy(Left) - Amador Archibald DO, FACS 06/09/2021 Status post correction of deviated nasal septum Family History Father Esophageal cancer Social History Smoking Status: Never smoker Years Smoked: 20; Cigarettes Per Day: 2; Second Hand Exposure: No; Hx Alcohol Use: Yes Alcohol type: beer Hx Substance Use: No Preferred Language: Chinese Communication Ability: Effective Lockstitch Zipper Setter Required: No Beliefs That Will Affect Care: None Current Living Situation: Alone Current Living Situation Comment: Lives in [address] building Feels Safe at Home: Yes Assistive Devices: Glasses Review of Systems Review of Systems: All systems reviewed & are unremarkable except as noted in HPI & below Physical Exam Physical Exam: Physical Exam: Vitals signs as noted above General Appearance:Moderately built and nourished, no apparent distress Head: normocephalic, Atraumatic Eyes: normal inspection, EOMI Neck: supple, Trachea midline Respiratory/Chest: Decreased breath sounds, Crackles at bases, +Port Cardiovascular: S1, S2, No murmur, +Tachycardia Abdomen/GI:Soft, Distended, mild tender, Bowel sounds present Extremities/Musculoskeletal:normal inspection, no edema Neurologic/Psych:AAOX3, grossly no focal neurological deficits Skin: normal color, warm Results & Data Results & Data ([facility]) Vital Signs (Past 12 Hours) Vital Signs Temp Pulse Pulse Resp BP BP Pulse Ox 06/11/21 15:14 113 H 20 192/122 H 96 06/11/21 14:15 102 H 21 191/109 H 94 06/11/21 13:40 93 06/11/21 13:30 36.9 C 121 H 221/143 H 89 L Laboratory Results Short CBC 06/11/21 Range/Units 13:50 WBC 8.97 (4.8-10.8) K/uL Hgb 11.4 L (12.0-16.0) g/dL Hct 34.3 L (37-47) % Plt Count 341 (130-400) K/uL BMP 06/11/21 13:50 Sodium 132 L Potassium 3.3 L Chloride 96 L Carbon Dioxide 23 BUN 11 Creatinine 0.54 L Glucose 291 H Calcium 8.6 Cardiac Enzymes 06/11/21 Range/Units 13:50 Troponin I 0.03 (0-0.04) ng/ml Liver Function 06/11/21 Range/Units 13:50 Total Bilirubin 0.7 (0.2-1.0) mg/dl AST 23 (13-39) U/L ALT 18 (7-52) U/L Alkaline Phosphatase 50 (34-104) U/L Albumin 4.2 (3.4-5.0) gm/dl Diagnostic Findings --CTA: 1. No evidence for pulmonary embolus. 2. Pulmonary edema with small bilateral pleural effusions and cardiomegaly. 3. A few subcentimeter nodules within the upper lung zones measure up to 4 mm. These are nonspecific but could be due to the pulmonary edema. [address] follow-up recommended to ensure resolution. 4. Focal area of consolidation within the base of the lingula. This may represent atelectasis or developing pneumonia. 5. Interval placement of a left jugular Port-A-Cath which terminates at the SVC. 6. No evidence for metastatic disease within the chest. CT ABD: 1. Interval progression of the peritoneal metastatic disease as described above. This is most pronounced within the deep pelvis which demonstrates an 8 x 6 cm solid and cystic perirectal mass consistent with metastatic disease. This results in mass effect along the rectum. The colon proximal to this lesion is borderline dilated and demonstrates a large amount well-formed stool. Therefore, this raises the possibility developing partial large bowel obstruction. 2. The bladder distended. No bladder wall thickening. 3. Please refer to the same day chest CT for further evaluation of the lung bases. 4. Additional findings as described above. Medications Administered EKG: Sinus tachycardia, PACs, left axis deviation, QTC 497. (1) Allergic drug reaction Encounter type: initial encounter Qualified Code(s): T78.40XA - Allergy, unspecified, initial encounter
--- NOTE | 2021-06-11 15:41 | Electrocardiogram Report ---
Test Reason : Blood Pressure : / mmHG Vent. Rate : 102 BPM Atrial Rate : 102 BPM P-R Int : 158 ms QRS Dur : 122 ms QT Int : 382 ms P-R-T Axes : 065 -45 105 degrees QTc Int : 497 ms Poor data quality, interpretation may be adversely affected Sinus tachycardia with Premature atrial complexes with Aberrant conduction Possible Left atrial enlargement Left axis deviation Anterior infarct (cited on or before 22-SEP-2019) Abnormal ECG When compared with ECG of 22-SEP-2019 18:58, Significant changes have occurred Confirmed by Edmond Sam ([id number]) on 06/11/2021 3:41:12 PM Referred By: REFERRED SELF Confirmed By:Edmond Sam
[2021-06-11] MEDS: POTASSIUM CHLORIDE 10 MEQ TABCR PO ONE ×2 (16:11→20:08)
[2021-06-11] MEDS ORDERED: POTASSIUM CHLORIDE 20 MEQ/15 ML UDC PO ONE (16:22)
[2021-06-11] MEDS ORDERED: OPTIRAY 320 125ml IV ONE (17:58)
--- NOTE | 2021-06-11 18:25 | CT Scan Report ---
CHEST CTA for PULMONARY ARTERIES CT DOSE: 489.66 mGy.cm HISTORY: Ovarian cancer. Shortness of breath. TECHNIQUE: Multiaxial CT images of the chest were performed following the intravenous administration of contrast to evaluate the pulmonary arteries. Maximal intensity projection images were also obtaine d. A dose lowering technique was utilized adhering to the principles of ALARA. COMPARISON STUDY: Chest CT 03/18/2021. FINDINGS: No filling defects seen within the pulmonary arteries to suggest a pulmonary embolus. Ramila l caliber thoracic aorta with mild calcified plaque. Inadequate opacification of the thoracic aorta t o evaluate for a dissection. The heart is enlarged. No significant pericardial effusion. There are sm all bilateral pleural effusions. Prior right mastectomy and axillary node dissection again noted. The re is a left jugular Port-A-Cath which terminates at the SVC. Small amount of soft tissue gas adjacen t to the port site may be due to recent postoperative change. Normal caliber esophagus. No hilar lymp hadenopathy. A few prominent subcarinal lymph nodes which have increased in size in the interval. It measures up to 11 mm in short axis diameter. Extensive calcifications within the right subclavian art rosamaria. No suspicious lytic or blastic osseous lesions. Diffuse interlobular septal thickening consisten t with pulmonary edema. Scarlike densities within the right lung apex have progressed. This may repre sent radiation fibrosis. Small patchy area of consolidation within the base of the lingula. Mild cent ral bronchial wall thickening. A few scattered small nodules seen within the upper lung zones. These measure up to 4 mm. These are nonspecific but may be secondary to the suspected pulmonary edema. IMPRESSION: 1. No evidence for pulmonary embolus. 2. Pulmonary edema with small bilateral pleural effusions and cardiomegaly. 3. A few subcentimeter nodules within the upper lung zones measure up to 4 mm. These are nonspecific but could be due to the pulmonary edema. [address] follow-up recommended to ensure resolution. 4. Focal area of consolidation within the base of the lingula. This may represent atelectasis or deve loping pneumonia. 5. Interval placement of a left jugular Port-A-Cath which terminates at the SVC. 6. No evidence for metastatic disease within the chest. ACT 112: Negative or not required by law. Electronically signed by: Matt Umanzor M.D. 06/11/2021 6:23 PM
--- NOTE | 2021-06-11 18:36 | CT Scan Report ---
ABDOMEN AND PELVIS CT WITH IV CONTRAST CT DOSE: HISTORY: Shortness of breath. Ovarian Cancer TECHNIQUE: Multiaxial CT images of the abdomen and pelvis were performed following the use of intrave nous contrast. A dose lowering technique was utilized adhering to the principles of ALARA. COMPARISON STUDY: Abdomen and pelvis CT 03/18/2021. FINDINGS: There are small bilateral pleural effusions and interlobular septal thickening consistent w ith pulmonary edema. This is better appreciated on the same day chest CTA. No pneumoperitoneum. No pn eumatosis. A few scattered sclerotic foci seen within the lower thoracic spine, sacrum, and pelvis re main stable. These favor bone islands. Degenerative changes again noted at the symphysis pubis. No he patic masses identified. The right adrenal gland and pancreas are unremarkable. Stable 1.5 cm left ad renal gland nodule. Increase in size in the cystic focus at the splenic hilum which measures 1.7 cm. There is a new 1.5 cm soft tissue nodule at splenic dome on image 84. This favors a peritoneal metast atic implant. The main portal vein is patent. No hydronephrosis. Small right renal cysts remain uncha nged. The a few prominent periaortic lymph nodes are again noted. Dominant lymph node on image 147 me asures 9 mm. The bladder is distended. No bladder wall thickening. Interval increase in size and numb er of the multiple peritoneal masses most pronounced within the deep pelvis at the perirectal locatio n. The dominant solid and cystic lesion at the deep pelvis currently measures 8 x 6 cm. This previous ly measured 5 x 4 cm. This results in mass effect and narrowing of the rectum. Proximal as the colon is borderline dilated and demonstrates a large amount well-formed stool. No dilated loops of small radha wel identified. There is a 4 mm enhancing nodule along the wall of the gallbladder. This favors a sma ll polyp. Prior hysterectomy. IMPRESSION: 1. Interval progression of the peritoneal metastatic disease as described above. This is most pronoun gibran within the deep pelvis which demonstrates an 8 x 6 cm solid and cystic perirectal mass consistent with metastatic disease. This results in mass effect along the rectum. The colon proximal to this le alanna is borderline dilated and demonstrates a large amount well-formed stool. Therefore, this raises the possibility developing partial large bowel obstruction. 2. The bladder distended. No bladder wall thickening. 3. Please refer to the same day chest CT for further evaluation of the lung bases. 4. Additional findings as described above. ACT 112: Negative or not required by law. Electronically signed by: Matt Umanzor M.D. 06/11/2021 6:34 PM
[2021-06-11] MEDS ORDERED: LABETALOL HCL IV 5 MG/ML 20ML IV PRN ×2 (18:55→19:12)
[2021-06-11] MEDS ORDERED: ACETAMINOPHEN 325 MG TAB PO PRN (19:12)
[2021-06-11] MEDS ORDERED: LORazepam 1 MG TAB PO PRN (19:12)
[2021-06-11] MEDS ORDERED: diphenhydrAMINE HCL 25 MG/10 ML UDC PO PRN (19:12)
[2021-06-11] MEDS ORDERED: POLYETHYLENE (MIRALAX) 17 GM PACK PO PRN (19:12)
[2021-06-11] MEDS: LOSARTAN POTASSIUM 50 MG TAB PO SCH (19:22)
[2021-06-11] MEDS: carvediloL 6.25 MG TAB PO SCH ×2 (19:22→20:19)
[2021-06-11] MEDS ORDERED: ENOXAPARIN INJ 40 MG/0.4 ML SYR SQ SCH (19:30)
[2021-06-11] MEDS ORDERED: NSS + 20MEQ KCL 20 MEQ/1,000 ML BAG IV ONE (19:45)
[2021-06-11] MEDS: ALBUTEROL 0.083% NEBU SOLN 3 ML VIAL NEB SCH ×2 (20:13→20:15)
[2021-06-11] MEDS: DOCUSATE SODIUM 100 MG CAP PO SCH (20:19)
[2021-06-11] MEDS: FAMOTIDINE 20 MG in SYRINGE 3 ML IV SCH (20:19)
[2021-06-11] MEDS: PANTOprazole 40 MG TAB PO SCH (20:20)
[2021-06-11] MEDS ORDERED: GLUCOSE 10 TABS/TUBE PO PRN (20:28)
[2021-06-11] MEDS ORDERED: GLUCOSE 40% GEL 15 GM TUBE PO PRN (20:28)
[2021-06-11] MEDS ORDERED: DEXTROSE 50% 50 ML SYRINGE IV PRN (20:28)
[2021-06-11] MEDS ORDERED: GLUCAGON FOR INJ 1 MG VIAL SQ PRN (20:28)
[2021-06-11] MEDS ORDERED: CARBOHYDRATES FOR HYPOGLYCEMIA PO PRN (20:28)
[2021-06-11] MEDS ORDERED: ATORVASTATIN 10 MG TAB PO SCH (21:00)
[2021-06-11] MEDS ORDERED: MAGNESIUM OXIDE 400 MG TAB PO SCH (21:00)
[2021-06-11] MEDS ORDERED: MELATONIN 3 MG TAB PO PRN (22:33)
[2021-06-11] MEDS ORDERED: MELATONIN 3 MG TAB PO ONE (22:43)
[2021-06-12] MEDS: INSULIN ASPART PER UNIT SC SCH ×3 (00:02→12:01)
[2021-06-12] MEDS: ALBUTEROL 0.083% NEBU SOLN 3 ML VIAL NEB SCH ×2 (07:15→10:55)
[2021-06-12] MEDS: PANTOprazole 40 MG TAB PO SCH (08:19)
[2021-06-12] MEDS: carvediloL 6.25 MG TAB PO SCH (08:19)
[2021-06-12] MEDS: DOCUSATE SODIUM 100 MG CAP PO SCH (08:20)
[2021-06-12] MEDS: FAMOTIDINE 20 MG in SYRINGE 3 ML IV SCH (08:20)
[2021-06-12] MEDS: LOSARTAN POTASSIUM 50 MG TAB PO SCH (08:21)
[2021-06-12 08:40] LABS: Hematocrit (blood only) 33.2 % (37-47); Hemoglobin 11.4 g/dL (12.0-16.0); Immature Granulocytes # (auto) 0.01 K/uL (0.00-0.02); Immature Granulocytes % (auto) 0.2 %; Lymphocytes # (auto) 0.57 K/uL (1.2-3.4); Lymphocytes % (auto) 10.3 %; Mean Corpuscular Hemoglobin 32.2 pg (25-34); Mean Corpuscular Hgb Conc 34.3 g/dL (32-36); Mean Corpuscular Volume 93.8 fL (80-100); Mean Platelet Volume 8.9 fL (7.4-10.4); Monocytes # (auto) 0.27 K/uL (0.11-0.59); Monocytes % (auto) 4.9 %; Neutrophils # (auto) 4.68 K/uL (1.4-6.5); Neutrophils % (auto) 84.6 %; Platelet Count 362 K/uL (130-400); RDW Coefficient of Variation 14.2 % (11.5-14.5); RDW Standard Deviation 48.3 fL (36.4-46.3); Red Blood Count 3.54 M/uL (4.2-5.4); White Blood Count 5.53 K/uL (4.8-10.8)
[2021-06-12 08:55] LABS: Estimated Average Glucose 126 mg/dl
[2021-06-12] MEDS ORDERED: CYANOCOBALAMIN (B-12) 2,500 MCG TABLET SL SCH (09:00)
[2021-06-12] MEDS ORDERED: THIAMINE HCL 100 MG TAB PO SCH (09:00)
[2021-06-12] MEDS ORDERED: FOLIC ACID 1 MG TAB PO SCH (09:00)
[2021-06-12] MEDS ORDERED: ASCORBIC ACID 500 MG TAB PO SCH (09:00)
[2021-06-12] MEDS ORDERED: POLYETHYLENE (MIRALAX) 17 GM PACK PO SCH (09:00)
[2021-06-12] MEDS ORDERED: POTASSIUM CHLORIDE 10 MEQ TABCR PO SCH (09:00)
[2021-06-12 09:03] LABS: Albumin Globulin Ratio 1.3 (0.9-2); Albumin Level 4.4 gm/dl (3.4-5.0); BUN Creatinine Ratio 24.5 (10-20); Bilirubin,Total 0.5 mg/dl (0.2-1.0); Calcium 8.9 mg/dl (8.5-10.1); Creatinine Clr Calc Pharmacy 72.9 ml/min; Est GFR (Non-African American) 96.7 ml/min; Globulin 3.3 gm/dl (2.5-4.0); Magnesium 1.6 mg/dl (1.7-2.4); Potassium 3.1 mmol/L (3.5-5.1); Total Protein 7.7 gm/dl (6.0-8.3)
[2021-06-12] MEDS: CETIRIZINE HCL 10 MG TABLET PO SCH ×2 (09:30→09:40)
--- NOTE | 2021-06-12 09:31 | XRay Report ---
KUB HISTORY: Abdominal distention with generalized abdominal pain and pressure. History of ovarian cancer . COMPARISON: Abdomen and pelvis CT 06/11/2021. FINDINGS: Large amount well-formed stool again seen throughout the colon which is mildly distended. N o dilated loops of small bowel identified. There is contrast within the bladder from the prior CT exa mination. Small bilateral pleural effusions. No renal calculi. No ureteral calculi. No pneumoperiton eum or pneumatosis. IMPRESSION: 1. Large amount of well-formed stool again seen throughout the colon which is mildly distended. This could be due to constipation or a partial large bowel obstruction as seen on the prior CT examination . 2. Small bilateral pleural effusions. ACT 112: Negative or not required by law. Electronically signed by: Matt Umanzor M.D. 06/12/2021 9:30 AM
[2021-06-12] MEDS: methylPREDNISolone 40 MG in SYRINGE 0 ML IV SCH ×2 (09:40→16:10)
[2021-06-12] MEDS ORDERED: POTASSIUM CHLORIDE CRTAB 20 MEQ TABCR PO SCH (11:15)
[2021-06-12] MEDS ORDERED: MAGNESIUM OXIDE 400 MG TAB PO SCH (11:15)
[2021-06-12] MEDS ORDERED: ALBUTEROL 0.083% NEBU SOLN 3 ML VIAL NEB PRN (11:31)
--- NOTE | 2021-06-12 11:53 | Surgery Consultation ---
Date of Consultation June 12, 2021 Assessment & Plan (1) Ovarian cancer: 75-year-old female with recurrent metastatic ovarian cancer with known pelvic peritoneal metastatic deposit causing compression of the rectum. She does not appear to be completely obstructed. For now we recommend enemas, suppositories, and stool softeners. Recommend a low fiber diet. She may see some improvement with initiation of chemotherapy, and in this location radiation therapy should be given consideration. If this is unsuccessful could discuss with GI for possible stent placement as an outpatient. If all else fails, we could perform a diverting loop colostomy. This would be palliative in nature. She could follow-up with her surgeons at [place]. No surgical intervention at this time. Surgery will sign off, call with questions or concerns. (2) Pelvic mass: (3) Constipation: History of Present Illness Attending Physician: Yan Woods MD History of Present Illness 75-year-old female known to me from recent port placement presented for shortness of breath. On her work-up she mentioned abdominal distention and had a CT scan which showed slight enlargement of known metastatic deposit of her previously resected ovarian cancer that was placed in partial compression on the rectum. She has been having rectal pressure and some constipation over the past few months that is been getting worse. It was for evaluation of this today noted that she had recurrence of her disease. A port was placed and she is scheduled to initiate chemotherapy again. She has not had radiation to her pelvis at all. She was using suppositories and laxatives to prevent constipation. She states that she has not been doing this as regularly as she should. Her last bowel movement before this was a few days ago. She did have a bowel movement last night that was small. She feels much less bloated. She tolerated breakfast. Allergies Allergy/AdvReac Type Severity Reaction Status Date / Time doxorubicin Allergy Severe Verified 06/11/21 20:18 ENVIRONMENTAL Allergy Severe IF EXPOSED Uncoded 06/11/21 15:13 TOO LONG--THROAT CLOSES Home Medications Medication Instructions Recorded Confirmed Type cyclosporine 0.05 % eye drops in a 1 drp OPHTHALMIC (EYE) Q12H 08/18/18 06/11/21 History dropperette (Restasis) ergocalciferol (vitamin D2) 1,250 50,000 unit PO UD 08/18/18 06/11/21 History mcg (50,000 unit) capsule (Vitamin D2) ascorbic acid (vitamin C) 1,000 mg 1 g PO QAM 09/22/19 06/11/21 History tablet (Vitamin C) atorvastatin 10 mg tablet (Lipitor) 10 mg PO QPM 09/22/19 06/11/21 History cyanocobalamin (vitamin B-12) 3,000 mcg PO QAM 09/22/19 06/11/21 History 1,000 mcg tablet (Vitamin B-12) denosumab 60 mg/mL subcutaneous 60 mg SUBCUT .Q6MO 09/22/19 06/11/21 History syringe (Prolia) losartan 100 mg tablet (Cozaar) 100 mg PO QAM 09/22/19 06/11/21 History ondansetron 8 mg disintegrating 8 mg PO Q8H PRN 12/13/19 06/11/21 History tablet magnesium oxide 400 mg PO HS 05/14/21 06/11/21 History potassium chloride 20 mEq 10 meq PO QAM 05/14/21 06/11/21 History tablet,extended release prochlorperazine maleate 10 mg 10 mg PO Q6H PRN 05/14/21 06/11/21 History tablet carvedilol 6.25 mg tablet (Coreg) 6.25 mg PO BID 06/09/21 06/11/21 History pantoprazole 40 mg tablet,delayed 40 mg PO BID 06/11/21 06/11/21 History release Patient History Medical History (Updated 06/12/21 @ 11:47 by Amador Archibald DO, FACS) Arthritis Chronic back pain Constipation Degenerative disc disease History of breast cancer Rt - 17 years ago - S/p Rt mastectomy, chemo + radiation, Lt - 2018 - s/p lumpectomy x 2, raidation History of depression History of gastric ulcer History of kidney stones History of uterine fibroid Hypertension Limb alert care status RUE Malignant neoplasm of central portion of left breast in female, estrogen receptor negative 2017 Osteoarthritis Osteoporosis Ovarian cancer Spinal stenosis 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 followed with physical therapy. Valvular heart disease follows with [facility] [place] Shabazz; moderate MR, mild global hypokinesis LV, RVSP 40-50mmHg Surgical History H/O knee surgery left knee reconstruction H/O: hysterectomy History of breast biopsy History of foot surgery BL History of lumpectomy of left breast x 2 2019 History of tooth extraction Hx of right mastectomy with lymph node removal 1991 Port-A-Cath in place (06/09/21) Insertion of Access Port with Fluoroscopy(Left) - Amador Archibald DO, FACS 06/09/2021 Status post correction of deviated nasal septum Family History Father Esophageal cancer Social History Smoking Status: Never smoker Years Smoked: 20; Cigarettes Per Day: 2; Second Hand Exposure: No; Hx Alcohol Use: Yes Alcohol type: beer Hx Substance Use: No Preferred Language: Kenyan Communication Ability: Effective Comber Fixer Required: No Beliefs That Will Affect Care: None Current Living Situation: Alone Current Living Situation Comment: Lives in [address] building Feels Safe at Home: Yes Safety Concerns: Feels Safe At This Time Assistive Devices: None Review of Systems Review of Systems: All systems reviewed & are unremarkable except as noted in HPI & below Physical Exam Constitutional: WD/WN, vitals as above Respiratory: normal respiratory effort, lungs clear to auscultation Cardiovascular: RRR, no murmur, no edema Chest (Breasts): Chest: + vascular access device or port Gastrointestinal (Abdomen): normal bowel sounds, soft, nontender, no hepatosplenomegaly Inspection/Auscultation: + abdominal surgical scar Results & Data ([facility]) Vital Signs (Past 12 Hours) Vital Signs Temp Pulse Pulse Resp BP Pulse Ox 06/12/21 10:55 83 18 92 06/12/21 08:00 94 H 06/12/21 07:45 36.6 C 96 H 18 168/99 H 92 06/12/21 07:16 85 16 97 06/12/21 03: 36.6 C 79 18 167/84 H 98 Diagnostic Findings ABDOMEN AND PELVIS CT WITH IV CONTRAST CT DOSE: HISTORY: Shortness of breath. Ovarian Cancer TECHNIQUE: Multiaxial CT images of the abdomen and pelvis were performed following the use of intravenous contrast. A dose lowering technique was utilized adhering to the principles of ALARA. COMPARISON STUDY: Abdomen and pelvis CT 03/18/2021. FINDINGS: There are small bilateral pleural effusions and interlobular septal thickening consistent with pulmonary edema. This is better appreciated on the same day chest CTA. No pneumoperitoneum. No pneumatosis. A few scattered sclerotic foci seen within the lower thoracic spine, sacrum, and pelvis remain stable. These favor bone islands. Degenerative changes again noted at the symphysis pubis. No hepatic masses identified. The right adrenal gland and pancreas are unremarkable. Stable 1.5 cm left adrenal gland nodule. Increase in size in the cystic focus at the splenic hilum which measures 1.7 cm. There is a new 1.5 cm soft tissue nodule at splenic dome on image 84. This favors a peritoneal metastatic implant. The main portal vein is patent. No hydronephrosis. Small right renal cysts remain unchanged. The a few prominent periaortic lymph nodes are again noted. Dominant lymph node on image 147 measures 9 mm. The bladder is distended. No bladder wall thickening. Interval increase in size and number of the multiple peritoneal masses most pronounced within the deep pelvis at the perirectal location. The dominant solid and cystic lesion at the deep pelvis currently measures 8 x 6 cm. This previously measured 5 x 4 cm. This results in mass effect and narrowing of the rectum. Proximal as the colon is borderline dilated and demonstrates a large amount well-formed stool. No dilated loops of small bowel identified. There is a 4 mm enhancing nodule along the wall of the gallbladder. This favors a small polyp. Prior hysterectomy. IMPRESSION: 1. Interval progression of the peritoneal metastatic disease as described above. This is most pronounced within the deep pelvis which demonstrates an 8 x 6 cm solid and cystic perirectal mass consistent with metastatic disease. This results in mass effect along the rectum. The colon proximal to this lesion is borderline dilated and demonstrates a large amount well-formed stool. Therefore, this raises the possibility developing partial large bowel obstruction. 2. The bladder distended. No bladder wall thickening. 3. Please refer to the same day chest CT for further evaluation of the lung bases. 4. Additional findings as described above. PG Care Time/CCT Total # of Minutes Spent Total Time Spent with Patient: Total time spent is greater than 50% in coordination of care (as documented) at patient's floor/unit and/or counseling patient: Coding Level of Care Code 60393 Initial Inpt Care Lvl 2 Diagnoses Ovarian cancer C56.9 Pelvic mass R19.00 Constipation K59.00
[2021-06-12] MEDS ORDERED: FUROSEMIDE 20 MG TAB PO SCH (13:30)
--- NOTE | 2021-06-12 13:32 | Hospitalist Progress Note ---
Date of Service June 12, 2021 Assessment & Plan (1) Allergic drug reaction: Plan: per Dr. Thomas's notes with addendum: Allergic Drug Reaction Secondary to doxorubicin Acute respiratory failure with hypoxia --CTA:No evidence for pulmonary embolus. Pulmonary edema with small bilateral pleural effusions and cardiomegaly. A few subcentimeter nodules within the upper lung zones measure up to 4 mm. These are nonspecific but could be due to the pulmonary edema. [address] follow-up recommended to ensure resolution. Focal area of consolidation within the base of the lingula. This may represent atelectasis or developing pneumonia. Interval placement of a left jugular Port-A-Cath which terminates at the SVC. No evidence for metastatic disease within the chest. -Started on Solu-Medrol, Pepcid, Benadryl Discussed with oncology Continue supplemental oxygen as needed 06/11 breathing back to baseline, now on room air no wheezing or crackles afebrile, no leukocytosis discharge plan: short Prednisone taper Zyrtec x 1 week PRN Benadryl for itching will hold off antibiotics for now, but advised to call Oncologist or PCP if with fever, cough ff up with PCP in 1 week ff up with Oncologist Dr. Velez in 1 week Hypertensive urgency Patient admits to not taking her blood pressure medications this morning Restart carvedilol, losartan IV labetalol as needed 06/11 resolved Perirectal mass Concern for developing partial large bowel obstruction -CT ABD:Interval progression of the peritoneal metastatic disease as described above. This is most pronounced within the deep pelvis which demonstrates an 8 x 6 cm solid and cystic perirectal mass consistent with metastatic disease. This results in mass effect along the rectum. The colon proximal to this lesion is borderline dilated and demonstrates a large amount well-formed stool. Therefore, this raises the possibility developing partial large bowel obstruction. The bladder distended. No bladder wall thickening. - (+) flatus - consulted Gen Surg- Dr. Archibald recommend stool softeners, low fiber diet - ff up with Oncologist discussed with Dr. Velez Hypokalemia Chronic hyponatremia - Na 136 K 3.1 Alcohol use disorder Drinks 1-2 beers daily as per patient Thiamine, folic acid no signs of overt alcohol withdrawal Recurrent Metastatic ovarian cancer S/P surgery on going chemotherapy Follows with --> discussed case with her Pre-DM H/O Prediabetes Check HbA1C: 6.0 Insulin sliding scale given IV steroids use Monitor BGs DVT Px: Lovenox SQ Code Status Full Code as per my discussion with patient Disposition anticipate d/c home later this afternoon plan of care discussed with patient in detail and at length all questions answered she is understanding, agreeable, comfortable with the plan of care Admission and Anticipated Discharge Date Admission Date: June 12, 2021 Subjective ff up for doxorubicin chemo reaction, etc seen resting in bed, sitting up comfortably states she feels much better overall breathing is back to baseline denies cough, sputum production, fever/chills, problems swallowing bloating also much better, (+) flatus no nausea no other symptoms states she is ready and would like to be discharged today Review of Systems Review of Systems: all noted and negative except for above Physical Exam Physical Exam: General- oriented x 3, not in distress, speaks in sentences with no effort or accessory muscle use Head- atraumatic Eyes- PERRL, EOMI, anicteric ENT- oropharynx clear Neck- supple, no JVD, no adenopathy, no thyromegaly; carotids +2/2, no bruits appreciated Lungs- clear to auscultation bilaterally, no rales/wheezes Heart- normal rate, regular rhythm; no murmur, no gallop, no rub appreciated Abdomen- normal bowel sounds, nondistended, soft, nontender, no masses or hepatosplenomegaly Extremities- no pretibial edema, no calf tenderness; peripheral pulses intact Neuro- alert, oriented x 3; CN 2-12 grossly intact; motor 5/5 bilaterally;sensation 100% on all extremities; no other gross focal neurologic deficits Skin- warm & dry Results & Data Results & Data ([facility]) Vital Signs (Past 12 Hours) Vital Signs Temp Pulse Pulse Resp BP Pulse Ox 06/12/21 12:02 36.7 C 92 H 18 175/101 H 93 06/12/21 10:55 83 18 92 06/12/21 08:00 94 H 06/12/21 07:45 36.6 C 96 H 18 168/99 H 92 06/12/21 07:16 85 16 97 06/12/21 03:22 36.6 C 79 18 167/84 H 98 all noted and reviewed including below (1) Allergic drug reaction Encounter type: initial encounter Qualified Code(s): T78.40XA - Allergy, unspecified, initial encounter
--- NOTE | 2021-06-12 15:33 | Discharge Summary ---
Date of Service June 12, 2021 Admission HPI Per Admitting Provider Patient is a 75-year-old female with history of metastatic ovarian cancer, hypertension, pulmonary hypertension, hyponatremia, alcohol use disorder, GERD, prediabetes, history of breast cancer and other medical problems presents for evaluation of allergic reaction from chemotherapy. Patient was scheduled for chemotherapy today. Patient follows with [facility] oncology Dr. Slater . Patient was pretreated with dexamethasone, Emend, Aloxi prior to chemotherapy. Patient was started on doxorubicin and had been continued for about 12 minutes after which patient developed significant back pain radiating to left lower extremity associated with shortness of breath, became very restless and agitated and felt abdomen to be bloated. Chemotherapy was immediately discontinued and patient received hydrocortisone, Famotidine and Benadryl. Patient was short of breath, wheezing while in ED and received nebs. She states having reaction to Taxol in April 2021 and was discontinued. Patient states feeling abdominal bloating and intermittent diarrhea associated with constipation lately. She denies any significant abdominal pain with reports having pressure-like sensation. Last bowel movement was 2 days ago. Admits to having decreased appetite. Denies any history of chest pain, palpitations, dizziness, cough, fever, chills, headache, change in vision, nausea, vomiting, dysuria. Admission Exam Per Admitting Provider Physical Exam: Vitals signs as noted above General Appearance:Moderately built and nourished, no apparent distress Head: normocephalic, Atraumatic Eyes: normal inspection, EOMI Neck: supple, Trachea midline Respiratory/Chest: Decreased breath sounds, Crackles at bases, +Port Cardiovascular: S1, S2, No murmur, +Tachycardia Abdomen/GI:Soft, Distended, mild tender, Bowel sounds present Extremities/Musculoskeletal:normal inspection, no edema Neurologic/Psych:AAOX3, grossly no focal neurological deficits Skin: normal color, warm Principal Diagnosis ALLERGIC REACTION TO DOXORUBICIN PERIRECTAL MASS Discharge Exam General- oriented x 3, not in distress, speaks in sentences with no effort or accessory muscle use Head- atraumatic Eyes- PERRL, EOMI, anicteric ENT- oropharynx clear Neck- supple, no JVD, no adenopathy, no thyromegaly; carotids +2/2, no bruits appreciated Lungs- clear to auscultation bilaterally, no rales/wheezes Heart- normal rate, regular rhythm; no murmur, no gallop, no rub appreciated Abdomen- normal bowel sounds, nondistended, soft, nontender, no masses or hepatosplenomegaly Extremities- no pretibial edema, no calf tenderness; peripheral pulses intact Neuro- alert, oriented x 3; CN 2-12 grossly intact; motor 5/5 bilaterally;sensation 100% on all extremities; no other gross focal neurologic deficits Skin- warm & dry Discharge Data Allergies Allergy/AdvReac Type Severity Reaction Status Date / Time doxorubicin Allergy Severe Verified 06/11/21 20:18 ENVIRONMENTAL Allergy Severe IF EXPOSED Uncoded 06/11/21 15:13 TOO LONG--THROAT CLOSES Consultations 06/11/21 15:29 ED Decision to Admit Stat 06/12/21 08:17 Consult General Surgery Routine Ordered Studies 06/11/21 15:58 CT abd pelvis IV con only Urgent ABDOMEN AND PELVIS CT WITH IV CONTRAST CT DOSE: HISTORY: Shortness of breath. Ovarian Cancer TECHNIQUE: Multiaxial CT images of the abdomen and pelvis were performed following the use of intravenous contrast. A dose lowering technique was utilized adhering to the principles of ALARA. COMPARISON STUDY: Abdomen and pelvis CT 03/18/2021. FINDINGS: There are small bilateral pleural effusions and interlobular septal thickening consistent with pulmonary edema. This is better appreciated on the same day chest CTA. No pneumoperitoneum. No pneumatosis. A few scattered sclerotic foci seen within the lower thoracic spine, sacrum, and pelvis remain stable. These favor bone islands. Degenerative changes again noted at the symphysis pubis. No hepatic masses identified. The right adrenal gland and pancreas are unremarkable. Stable 1.5 cm left adrenal gland nodule. Increase in size in the cystic focus at the splenic hilum which measures 1.7 cm. There is a new 1.5 cm soft tissue nodule at splenic dome on image 84. This favors a peritoneal metastatic implant. The main portal vein is patent. No hydronephrosis. Small right renal cysts remain unchanged. The a few prominent periaortic lymph nodes are again noted. Dominant lymph node on image 147 measures 9 mm. The bladder is distended. No bladder wall thickening. Interval increase in size and number of the multiple peritoneal masses most pronounced within the deep pelvis at the perirectal location. The dominant solid and cystic lesion at the deep pelvis currently measures 8 x 6 cm. This previously measured 5 x 4 cm. This results in mass effect and narrowing of the rectum. Proximal as the colon is borderline dilated and demonstrates a large amount well-formed stool. No dilated loops of small bowel identified. There is a 4 mm enhancing nodule along the wall of the gallbladder. This favors a small polyp. Prior hysterectomy. IMPRESSION: 1. Interval progression of the peritoneal metastatic disease as described above. This is most pronounced within the deep pelvis which demonstrates an 8 x 6 cm solid and cystic perirectal mass consistent with metastatic disease. This results in mass effect along the rectum. The colon proximal to this lesion is borderline dilated and demonstrates a large amount well-formed stool. Therefore, this raises the possibility developing partial large bowel obstruction. 2. The bladder distended. No bladder wall thickening. 3. Please refer to the same day chest CT for further evaluation of the lung bases. 4. Additional findings as described above. ACT 112: Negative or not required by law. Electronically signed by: Matt Umanzor M.D. 06/11/2021 6:34 PM 06/11/21 15:58 CT angio chest PE protocol Urgent CHEST CTA for PULMONARY ARTERIES CT DOSE: 489.66 mGy.cm HISTORY: Ovarian cancer. Shortness of breath. TECHNIQUE: Multiaxial CT images of the chest were performed following the intravenous administration of contrast to evaluate the pulmonary arteries. Maximal intensity projection images were also obtained. A dose lowering technique was utilized adhering to the principles of ALARA. COMPARISON STUDY: Chest CT 03/18/2021. FINDINGS: No filling defects seen within the pulmonary arteries to suggest a pulmonary embolus. Normal caliber thoracic aorta with mild calcified plaque. Inadequate opacification of the thoracic aorta to evaluate for a dissection. The heart is enlarged. No significant pericardial effusion. There are small bilateral pleural effusions. Prior right mastectomy and axillary node dissection again noted. There is a left jugular Port-A-Cath which terminates at the SVC. Small amount of soft tissue gas adjacent to the port site may be due to recent postoperative change. Normal caliber esophagus. No hilar lymphadenopathy. A few prominent subcarinal lymph nodes which have increased in size in the interval. It measures up to 11 mm in short axis diameter. Extensive calcifications within the right subclavian artery. No suspicious lytic or blastic osseous lesions. Diffuse interlobular septal thickening consistent with pulmonary edema. Scarlike densities within the right lung apex have progressed. This may represent radiation fibrosis. Small patchy area of consolidation within the base of the lingula. Mild central bronchial wall thickening. A few scattered small nodules seen within the upper lung zones. These measure up to 4 mm. These are nonspecific but may be secondary to the suspected pulmonary edema. IMPRESSION: 1. No evidence for pulmonary embolus. 2. Pulmonary edema with small bilateral pleural effusions and cardiomegaly. 3. A few subcentimeter nodules within the upper lung zones measure up to 4 mm. These are nonspecific but could be due to the pulmonary edema. [address] follow-up recommended to ensure resolution. 4. Focal area of consolidation within the base of the lingula. This may represent atelectasis or developing pneumonia. 5. Interval placement of a left jugular Port-A-Cath which terminates at the SVC. 6. No evidence for metastatic disease within the chest. ACT 112: Negative or not required by law. Electronically signed by: Matt Umanzor M.D. 06/11/2021 6:23 PM Hospital Course (1) Allergic drug reaction: per Dr. Thomas's notes with addendum: Allergic Drug Reaction Secondary to doxorubicin Acute respiratory failure with hypoxia --CTA:No evidence for pulmonary embolus. Pulmonary edema with small bilateral pleural effusions and cardiomegaly. A few subcentimeter nodules within the upper lung zones measure up to 4 mm. These are nonspecific but could be due to the pulmonary edema. [address] follow-up recommended to ensure resolution. Focal area of consolidation within the base of the lingula. This may represent atelectasis or developing pneumonia. Interval placement of a left jugular Port-A-Cath which terminates at the SVC. No evidence for metastatic disease within the chest. -Started on Solu-Medrol, Pepcid, Benadryl Discussed with oncology Continue supplemental oxygen as needed 06/11 breathing back to baseline, now on room air no wheezing or crackles afebrile, no leukocytosis discharge plan: short Prednisone taper Zyrtec x 1 week PRN Benadryl for itching will hold off antibiotics for now, but advised to call Oncologist or PCP if with fever, cough ff up with PCP in 1 week ff up with Oncologist Dr. Velez in 1 week Hypertensive urgency Patient admits to not taking her blood pressure medications this morning Restart carvedilol, losartan IV labetalol as needed 06/11 resolved Perirectal mass Concern for developing partial large bowel obstruction -CT ABD:Interval progression of the peritoneal metastatic disease as described above. This is most pronounced within the deep pelvis which demonstrates an 8 x 6 cm solid and cystic perirectal mass consistent with metastatic disease. This results in mass effect along the rectum. The colon proximal to this lesion is borderline dilated and demonstrates a large amount well-formed stool. Therefore, this raises the possibility developing partial large bowel obstruction. The bladder distended. No bladder wall thickening. - (+) flatus - consulted Gen Surg- Dr. Archibald recommend stool softeners, low fiber diet - ff up with Oncologist discussed with Dr. Velez Hypokalemia Chronic hyponatremia - Na 136 K 3.1 - K supplement prescribed repeat K on ff up with PCP Alcohol use disorder Drinks 1-2 beers daily as per patient Thiamine, folic acid no signs of overt alcohol withdrawal Recurrent Metastatic ovarian cancer S/P surgery on going chemotherapy Follows with --> discussed case with her Pre-DM H/O Prediabetes Check HbA1C: 6.0 Insulin sliding scale given IV steroids use Monitor BGs DVT Px: Lovenox SQ Code Status Full Code as per my discussion with patient Disposition anticipate d/c home later this afternoon plan of care discussed with patient in detail and at length all questions answered she is understanding, agreeable, comfortable with the plan of care Total Time Total Time Spent Total Time Spent (In Minutes): > 30 minutes Discharge Plan Discharge Items Patient Disposition: Home - Self-Care Reason For Visit: ALLERGIC REACTION Discharge Diagnosis: ALLERGIC REACTION TO DOXORUBICIN CHEMOTHERAPY PERIRECTAL MASS Activity: Resume your previous activity Lifting: Wait until after follow-up appointment Exercise/Sports: Wait until after follow-up appointment Driving/Machine Use: NO DRIVING UNTIL SEEN AND RE-EVALUATED BY PRIMARY CARE PHYSICIAN Non-emergency contact: Primary Care Provider and Oncologist Call non-emergency contact if: you have any medication questions, your symptoms worsen, your pain is not controlled, your pain is worsening, your pain is unusual for you, your pain is concerning for you and you have a fever Follow-up/Referrals: Rachel Centeno MD [Primary Care Provider] - (Date & Time 06/18/2021 11:00 AM Provider Rachel Centeno MD Department General Internal Medicine [facility] ) Nathalie Slater MD [Physician] - Diet: Low Fiber Addtl Attending Provider Instructions: PLEASE REFER TO YOUR NEW MEDICATION LIST AND FOLLOW INSTRUCTIONS CAREFULLY. YOUR NEW MEDICATIONS INCLUDE: PREDNISONE TAPER- to control allergic reaction ZYRTEC- to control allergic reaction; do not drive while taking this medication NEEDED BENADRYL- for itching, rashes POTASSIUM SUPPLEMENT- for low potassium level SENOKOT S- to promote bowel movement CALL 911 IF YOU HAVE SHORTNESS OF BREATH, WHEEZING. PLEASE CALL YOUR PRIMARY CARE PHYSICIAN OR RETURN TO THE ER IF WITH WORSENING OF SYMPTOMS, INCLUDING COUGH, FEVER/CHILLS, ABDOMINAL PAIN OR BLOATING, PERSISTENT CONSTIPATION, NAUSEA/VOMITING. FOLLOW UP WITH PRIMARY CARE PHYSICIAN OUTLINED ABOVE. Pending Studies at Discharge: No Stand-Alone Forms: My [facility] [employer], Smoking Cessation Medications and DC Order Prescriptions: New cetirizine 10 mg Tablet 10 mg PO QAM 7 Days Qty: 7 RF: 0 potassium chloride 20 mEq Tablet,Er Particles/Crystals 40 meq PO DAILY 7 Days Qty: 14 RF: 0 magnesium oxide 400 mg (241.3 mg magnesium) Tablet 400 mg PO BID 7 Days Qty: 14 RF: 0 polyethylene glycol 3350 [Miralax] 17 gram Powder In Packet 17 g PO DAILY PRN (Reason: constipation) Qty: 14 RF: 0 sennosides-docusate sodium [Senokot-S] 8.6-50 mg tablet 1 tab-cap PO DAILY Qty: 14 RF: 0 prednisone 10 mg tablet 10 mg PO UD Qty: 7 RF: 0 diphenhydramine HCl [Allergy] 25 mg tablet 25 mg PO TID PRN (Reason: itching) Qty: 14 RF: 0 Continued magnesium oxide 400 mg magnesium tablet 400 mg PO HS RF: 0 prochlorperazine maleate 10 mg tablet 10 mg PO Q6H PRN (Reason: nausea and vomiting) RF: 0 ondansetron 8 mg Tablet,Disintegrating 8 mg PO Q8H PRN (Reason: Nausea) RF: 0 ergocalciferol (vitamin D2) [Vitamin D2] 50,000 unit Capsule 50,000 unit PO UD RF: 0 cyclosporine [Restasis] 0.05 % Dropperette 1 drp OPHTHALMIC (EYE) Q12H RF: 0 ascorbic acid (vitamin C) [Vitamin C] 1,000 mg Tablet 1 g PO QAM RF: 0 atorvastatin [Lipitor] 10 mg tablet 10 mg PO QPM RF: 0 cyanocobalamin (vitamin B-12) [Vitamin B-12] 1,000 mcg Tablet 3,000 mcg PO QAM RF: 0 losartan [Cozaar] 100 mg tablet 100 mg PO QAM RF: 0 Prolia 60 mg/mL Syringe 60 mg SUBCUT .Q6MO RF: 0 carvedilol [Coreg] 6.25 mg tablet 6.25 mg PO BID RF: 0 pantoprazole 40 mg tablet,delayed release (DR/EC) 40 mg PO BID RF: 0 Discontinued potassium chloride 20 mEq tablet extended release 10 meq PO QAM RF: 0 Discharge Orders: Discharge Order (Routine); Ordered 06/12/21 Ordered By: Yan Woods Admission Data Admit Date/Time: 06/11/21 15:53 Attending Provider: Yan Woods Admit Provider: David Thomas Primary Care Provider: Rachel Centeno Other Providers: David Thomas ; Amador Archibald
[2021-06-12] MEDS ORDERED: FAMOTIDINE 20 MG TAB PO SCH (21:00)
--- NOTE | 2021-06-12 21:52 | Electrocardiogram Report ---
Test Reason : Blood Pressure : / mmHG Vent. Rate : 086 BPM Atrial Rate : 086 BPM P-R Int : 154 ms QRS Dur : 122 ms QT Int : 436 ms P-R-T Axes : 097 -53 086 degrees QTc Int : 521 ms Normal sinus rhythm Possible Left atrial enlargement Left axis deviation Non-specific intra-ventricular conduction block Abnormal ECG When compared with ECG of 11-JUN-2021 14:07, Aberrant conduction is no longer Present T wave inversion now evident in Anterior leads Nonspecific T wave abnormality has replaced inverted T waves in Lateral leads Confirmed by Pato Cabral ([id number]) on 06/12/2021 9:52:00 PM Referred By: REFERRED SELF Confirmed By:Pato Cabral
== END 2021-06-12 17:14 | disposition home or self-care (01) ==
LOC: 2S 13:24 → ED 13:24 → SUATTDRO 15:53 → 2S 17:39
DX: E87.1 Hypo-osmolality and hyponatremia; Z90.11 Acquired absence of right breast and nipple; Z79.899 Other long term (current) drug therapy; T88.6XXA Anaphylactic reaction due to adverse effect of correct drug or medicament properly administered, initial encounter; Z98.890 Other specified postprocedural states; Z92.21 Personal history of antineoplastic chemotherapy; E87.6 Hypokalemia; T78.40XA Allergy, unspecified, initial encounter; C79.60 Secondary malignant neoplasm of unspecified ovary; I16.0 Hypertensive urgency; Z92.3 Personal history of irradiation; T45.1X5A Adverse effect of antineoplastic and immunosuppressive drugs, initial encounter; K62.89 Other specified diseases of anus and rectum; Z91.09 Other allergy status, other than to drugs and biological substances; Z90.710 Acquired absence of both cervix and uterus

== ENCOUNTER 2021-07-23 03:07 | Inpatient (IN) ==
--- NOTE | 2021-07-23 03:43 | Emergency Department Note ---
History of Present Illness General Chief complaint: Respiratory Distress Stated complaint: RESPIRATORY DISTRESS Time Seen by Provider: 07/23/21 03:16 History of Present Illness This 75-year-old cancer patient on chemo presents to the ER complaining of cute onset of shortness of breath Location: Chest Quality: Short of breath Severity: Severe Duration: Tonight Timing: Tonight Context: Patient was concerned and called EMS Modifying factors: better with nitroglycerin and oxygen; worse with activity Patient denies chest pain, fevers, chills, abdominal pain, flulike illness. She was admitted last month for heart failure Per patient. Symptoms feel somewhat similar. Home Medications Medication Instructions Recorded Confirmed Type cyclosporine 0.05 % eye drops in a 1 drp OPHTHALMIC (EYE) Q12H 08/18/18 06/11/21 History dropperette (Restasis) ergocalciferol (vitamin D2) 1,250 50,000 unit PO UD 08/18/18 06/11/21 History mcg (50,000 unit) capsule (Vitamin D2) ascorbic acid (vitamin C) 1,000 mg 1 g PO QAM 09/22/19 06/11/21 History tablet (Vitamin C) atorvastatin 10 mg tablet (Lipitor) 10 mg PO QPM 09/22/19 06/11/21 History cyanocobalamin (vitamin B-12) 3,000 mcg PO QAM 09/22/19 06/11/21 History 1,000 mcg tablet (Vitamin B-12) denosumab 60 mg/mL subcutaneous 60 mg SUBCUT .Q6MO 09/22/19 06/11/21 History syringe (Prolia) losartan 100 mg tablet (Cozaar) 100 mg PO QAM 09/22/19 06/11/21 History ondansetron 8 mg disintegrating 8 mg PO Q8H PRN 12/13/19 06/11/21 History tablet magnesium oxide 400 mg PO HS 05/14/21 06/11/21 History prochlorperazine maleate 10 mg 10 mg PO Q6H PRN 05/14/21 06/11/21 History tablet carvedilol 6.25 mg tablet (Coreg) 6.25 mg PO BID 06/09/21 06/11/21 History pantoprazole 40 mg tablet,delayed 40 mg PO BID 06/11/21 06/11/21 History release diphenhydramine HCl 25 mg tablet 25 mg PO TID PRN #14 tab 06/12/21 Rx (Allergy) polyethylene glycol 3350 17 gram 17 g PO DAILY PRN #14 ea 06/12/21 Rx oral powder packet (Miralax) prednisone 10 mg tablet 10 mg PO UD #7 tab 06/12/21 Rx sennosides 8.6 mg-docusate sodium 1 tab-cap PO DAILY #14 tab 06/12/21 Rx 50 mg tablet (Senokot-S) Allergies Allergy/AdvReac Type Severity Reaction Status Date / Time doxorubicin Allergy Severe Verified 06/11/21 20:18 ENVIRONMENTAL Allergy Severe IF EXPOSED Uncoded 06/11/21 15:13 TOO LONG--THROAT CLOSES Past Med/Surg History Medical History Arthritis Chronic back pain Constipation Degenerative disc disease History of breast cancer Rt - 17 years ago - S/p Rt mastectomy, chemo + radiation, Lt - 2018 - s/p lumpectomy x 2, raidation History of depression History of gastric ulcer History of kidney stones History of uterine fibroid Hypertension Limb alert care status RUE Malignant neoplasm of central portion of left breast in female, estrogen receptor negative 2017 Osteoarthritis Osteoporosis Ovarian cancer Spinal stenosis 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 followed with physical therapy. Valvular heart disease follows with [facility] [place] Cardiology Dr Shabazz; moderate MR, mild global hypokinesi s LV, RVSP 40-50mmHg Surgical History H/O knee surgery left knee reconstruction H/O: hysterectomy History of breast biopsy History of foot surgery BL History of lumpectomy of left breast x 2 2019 History of tooth extraction Hx of right mastectomy with lymph node removal 1991 Port-A-Cath in place (06/09/21) Insertion of Access Port with Fluoroscopy(Left) - Amador Archibald DO, FACS 06/09/2021 Status post correction of deviated nasal septum Family History Father Esophageal cancer Social History Smoking Status: Former smoker Years Smoked: 20; Cigarettes Per Day: 2; Second Hand Exposure: No; Hx Alcohol Use: Yes Alcohol type: beer Hx Substance Use: No Preferred Language: Albanian Communication Ability: Effective Radiology Director Required: No Beliefs That Will Affect Care: None Current Living Situation: Alone Current Living Situation Comment: Lives in [address] building Feels Safe at Home: Yes Assistive Devices: None Review of Systems A total of 10 systems reviewed and were otherwise negative Physical Exam Vital Signs Vital Signs - 24 hr 07/23/21 03:13 07/23/21 03:18 07/23/21 03:22 Temperature 36.5 C Temperature Source Axillary Pulse Rate 103 H 112 H Pulse Rate [Right] 105 H Pulse Rhythm Regular Pulse Rhythm [Right] Regular Pulse Strength Normal Pulse Strength [Right] Normal Respiratory Rate 30 H 38 H 25 H Respiratory Effort / Characteristics Labored Spontaneous Non-Labored Respiratory Depth Deep Normal Normal Respiratory Pattern Tachypnea Tachypnea Tachypnea Blood Pressure 159/99 H Blood Pressure [Right Arm] 151/88 H Blood Pressure Mean 119 Blood Pressure Mean [Right Arm] 109 Blood Pressure Position Sitting Blood Pressure Position [Right Arm] Sitting Pulse Oximetry 100 100 99 Oxygen Delivery Method BiPAP BiPAP Fraction of Inspired Oxygen 50 SaO2/FiO2 Ratio Sepsis Recent Fever Within 48 Hours No Sepsis New/Unexplained Change in Mental Status No Sepsis Action Taken by Nursing Physician Notified 07/23/21 03:42 07/23/21 05:03 Temperature Temperature Source Pulse Rate 100 H Pulse Rate [Right] 98 H Pulse Rhythm Regular Pulse Rhythm [Right] Regular Pulse Strength Pulse Strength [Right] Normal Respiratory Rate 22 26 H Respiratory Effort / Characteristics Spontaneous Non-Labored Spontaneous Respiratory Depth Normal Normal Respiratory Pattern Tachypnea Regular Blood Pressure Blood Pressure [Right Arm] 156/106 H Blood Pressure Mean Blood Pressure Mean [Right Arm] 122 Blood Pressure Position Blood Pressure Position [Right Arm] Sitting Pulse Oximetry 100 99 Oxygen Delivery Method BiPAP CPAP Fraction of Inspired Oxygen 50 SaO2/FiO2 Ratio 198 Sepsis Recent Fever Within 48 Hours Sepsis New/Unexplained Change in Mental Status Sepsis Action Taken by Nursing VITALS: Vitals are noted on the nurse's note and reviewed by myself. Vital signs reviewed. GENERAL: Elderly female on BiPAP working to breathe SKIN: The skin was without rashes, erythema, edema, or bruising. There is no tenting of the skin. Capillary reflex less than 2 seconds. HEAD: Normocephalic atraumatic. EARS: External auditory canals clear, EYES: Pupils equal round and reactive to light and accommodation. Conjunctivae without injection, sclerae without icterus. Extraocular movements intact. NOSE: Patent, turbinates without inflammation or discharge. MOUTH: Mucous membranes moist. Pharynx without erythema or exudate. Uvula midline. Airway patent. Tongue does not deviate. NECK: Supple without nuchal rigidity. No lymphadenopathy. No thyromegaly. Cervical spine is nontender. No JVD. HEART: Regular rate and rhythm LUNGS: Bibasilar rales. No retractions or accessory muscle use. ABDOMEN: Positive bowel sounds x 4. Normal tympanic percussion. Soft, nontender, without masses or organomegaly. Lane sign negative. No guarding or rebound tenderness. No CVA tenderness MUSCULOSKELETAL: No muscle atrophy, erythema, or edema noted. NEURO: Patient was alert and oriented to person place and time. Normal sensation to light and sharp touch. No focal neurological deficits. Course Administered Medications Magnesium Sulfate/Dextrose (Magnesium Sulfate / D5w) 1 gm in 100 mls @ 100 mls/hr IV Q1H CHRISTINE Stop: 07/23/21 06:31 Last Admin: 07/23/21 04:52 Dose: 100 mls/hr Documented by: [id number] Potassium Chloride (Potassium Chloride Crtab 20 Meq Tabcr) 40 meq PO ONE ONE Stop: 07/23/21 06:01 Last Admin: 07/23/21 05:18 Dose: 40 meq Documented by: [id number] Discontinued Medications Dexamethasone (Dexamethasone Sod Inj 4 Mg/Ml Vial) 6 mg IV NOW ONE Stop: 07/23/21 05:01 Last Admin: 07/23/21 04:57 Dose: 6 mg Documented by: [id number] Furosemide (Furosemide Inj 20 Mg/2 Ml Vial) 20 mg IV ONE ONE Stop: 07/23/21 04:25 Last Admin: 07/23/21 04:48 Dose: 20 mg Documented by: [id number] Thiamine HCl 100 mg/ Syringe 10 mls @ 2 mls/min IV NOW STA Stop: 07/23/21 04:30 Last Admin: 07/23/21 04:56 Dose: 2 mls/min Documented by: [id number] Ioversol (Optiray 320 125ml) 125 ml IV ONCE ONE Stop: 07/23/21 04:45 Last Admin: 07/23/21 04:45 Dose: 83 ml Documented by: [id number] Medical Decision Making Medical Records Attestation: I reviewed the patient's medical records. Home Medications Current Medication List: was personally reviewed by me Laboratory Data Attestation: I reviewed the patient's lab results. Result diagrams: 07/23/21 03:37 07/23/21 03:37 Lab Results 07/23/21 07/23/21 07/23/21 Range/Units 03:37 03:37 03:37 WBC 0.64 L* (4.8-10.8) K/uL RBC 2.58 L (4.2-5.4) M/uL Hgb 8.3 L (12.0-16.0) g/dL Hct 24.3 L (37-47) % MCV 94.2 (80-100) fL MCH 32.2 (25-34) pg MCHC 34.2 (32-36) g/dL RDW Std Deviation 47.7 H (36.4-46.3) fL RDW Coeff of Cain 14.2 (11.5-14.5) % Plt Count 228 (130-400) K/uL MPV 9.4 (7.4-10.4) fL Immature Gran % (Auto) 0.0 % Neut % (Auto) 0.0 % Lymph % (Auto) 65.6 % Bulloch % (Auto) 34.4 % Eos % (Auto) 0.0 % Baso % (Auto) 0.0 % Neut # (Auto) 0.00 L* (1.4-6.5) K/uL Lymph # (Auto) 0.42 L (1.2-3.4) K/uL Bulloch # (Auto) 0.22 (0.11-0.59) K/uL Eos # (Auto) 0.00 (0-0.5) K/uL Baso # (Auto) 0.00 (0-0.2) K/uL Immature Gran # (Auto) 0.00 (0.00-0.02) K/uL Giant Platelets 2+ APTT (21.0-31.0) Seconds PTT Ratio VBG pH (7.36-7.41) VBG pCO2 (38-50) mmHg VBG pO2 mmHg VBG HCO3 mmol/L VBG O2 Saturation % VBG Base Excess mEq/L Sodium 123 L (136-145) mmol/L Potassium 3.7 (3.5-5.1) mmol/L Chloride 91 L (98-107) mmol/L Carbon Dioxide 21 (21-32) mmol/L Anion Gap 11 (3-11) BUN 12 (6-23) mg/dl Creatinine 0.44 L (0.6-1.2) mg/dl Est Cr Clr Drug Dosing Not Reportable Est GFR ( Amer) 116.1 ml/min Est GFR (Non-Af Amer) 100.1 ml/min BUN/Creatinine Ratio 27.3 H (10-20) Glucose 181 H (70-99(Fasting)) mg/dl Osmolality (280-300) mOsm/kg Calcium 8.3 L (8.5-10.1) mg/dl Magnesium 0.9 L* (1.7-2.4) mg/dl Total Bilirubin 0.6 (0.2-1.0) mg/dl AST 60 H (13-39) U/L ALT 45 (7-52) U/L Alkaline Phosphatase 65 (34-104) U/L Troponin I High Sens 25.2 H (0-14) pg/ml B-Natriuretic Peptide (0-100) pg/ml Total Protein 6.3 (6.0-8.3) gm/dl Albumin 3.6 (3.4-5.0) gm/dl Globulin 2.7 (2.5-4.0) gm/dl Albumin/Globulin Ratio 1.3 (0.9-2) TSH (0.300-4.500) uIu/ml SARS-CoV-2 (PCR) (Negative) Influenza Type A (PCR) (Neg) Influenza Type B (PCR) (Neg) RSV (RT-PCR) (Neg) 07/23/21 07/23/21 07/23/21 Range/Units 03:37 03:37 03:37 WBC (4.8-10.8) K/uL RBC (4.2-5.4) M/uL Hgb (12.0-16.0) g/dL Hct (37-47) % MCV (80-100) fL MCH (25-34) pg MCHC (32-36) g/dL RDW Std Deviation (36.4-46.3) fL RDW Coeff of Cain (11.5-14.5) % Plt Count (130-400) K/uL MPV (7.4-10.4) fL Immature Gran % (Auto) % Neut % (Auto) % Lymph % (Auto) % Bulloch % (Auto) % Eos % (Auto) % Baso % (Auto) % Neut # (Auto) (1.4-6.5) K/uL Lymph # (Auto) (1.2-3.4) K/uL Bulloch # (Auto) (0.11-0.59) K/uL Eos # (Auto) (0-0.5) K/uL Baso # (Auto) (0-0.2) K/uL Immature Gran # (Auto) (0.00-0.02) K/uL Giant Platelets APTT 28.0 (21.0-31.0) Seconds PTT Ratio 1.0 VBG pH 7.39 (7.36-7.41) VBG pCO2 36 L (38-50) mmHg VBG pO2 40 mmHg VBG HCO3 21 mmol/L VBG O2 Saturation 71.4 % VBG Base Excess -3.3 mEq/L Sodium (136-145) mmol/L Potassium (3.5-5.1) mmol/L Chloride (98-107) mmol/L Carbon Dioxide (21-32) mmol/L Anion Gap (3-11) BUN (6-23) mg/dl Creatinine (0.6-1.2) mg/dl Est Cr Clr Drug Dosing Est GFR ( Amer) ml/min Est GFR (Non-Af Amer) ml/min BUN/Creatinine Ratio (10-20) Glucose (70-99(Fasting)) mg/dl Osmolality (280-300) mOsm/kg Calcium (8.5-10.1) mg/dl Magnesium (1.7-2.4) mg/dl Total Bilirubin (0.2-1.0) mg/dl AST (13-39) U/L ALT (7-52) U/L Alkaline Phosphatase (34-104) U/L Troponin I High Sens (0-14) pg/ml B-Natriuretic Peptide 793 H (0-100) pg/ml Total Protein (6.0-8.3) gm/dl Albumin (3.4-5.0) gm/dl Globulin (2.5-4.0) gm/dl Albumin/Globulin Ratio (0.9-2) TSH (0.300-4.500) uIu/ml SARS-CoV-2 (PCR) (Negative) Influenza Type A (PCR) (Neg) Influenza Type B (PCR) (Neg) RSV (RT-PCR) (Neg) 07/23/21 07/23/21 07/23/21 Range/Units 03:37 03:37 03:49 WBC (4.8-10.8) K/uL RBC (4.2-5.4) M/uL Hgb (12.0-16.0) g/dL Hct (37-47) % MCV (80-100) fL MCH (25-34) pg MCHC (32-36) g/dL RDW Std Deviation (36.4-46.3) fL RDW Coeff of Cain (11.5-14.5) % Plt Count (130-400) K/uL MPV (7.4-10.4) fL Immature Gran % (Auto) % Neut % (Auto) % Lymph % (Auto) % Bulloch % (Auto) % Eos % (Auto) % Baso % (Auto) % Neut # (Auto) (1.4-6.5) K/uL Lymph # (Auto) (1.2-3.4) K/uL Bulloch # (Auto) (0.11-0.59) K/uL Eos # (Auto) (0-0.5) K/uL Baso # (Auto) (0-0.2) K/uL Immature Gran # (Auto) (0.00-0.02) K/uL Giant Platelets APTT (21.0-31.0) Seconds PTT Ratio VBG pH (7.36-7.41) VBG pCO2 (38-50) mmHg VBG pO2 mmHg VBG HCO3 mmol/L VBG O2 Saturation % VBG Base Excess mEq/L Sodium (136-145) mmol/L Potassium (3.5-5.1) mmol/L Chloride (98-107) mmol/L Carbon Dioxide (21-32) mmol/L Anion Gap (3-11) BUN (6-23) mg/dl Creatinine (0.6-1.2) mg/dl Est Cr Clr Drug Dosing Est GFR ( Amer) ml/min Est GFR (Non-Af Amer) ml/min BUN/Creatinine Ratio (10-20) Glucose (70-99(Fasting)) mg/dl Osmolality 261 L (280-300) mOsm/kg Calcium (8.5-10.1) mg/dl Magnesium (1.7-2.4) mg/dl Total Bilirubin (0.2-1.0) mg/dl AST (13-39) U/L ALT (7-52) U/L Alkaline Phosphatase (34-104) U/L Troponin I High Sens (0-14) pg/ml B-Natriuretic Peptide (0-100) pg/ml Total Protein (6.0-8.3) gm/dl Albumin (3.4-5.0) gm/dl Globulin (2.5-4.0) gm/dl Albumin/Globulin Ratio (0.9-2) TSH 6.332 H (0.300-4.500) uIu/ml SARS-CoV-2 (PCR) POSITIVE A* (Negative) Influenza Type A (PCR) Negative (Neg) Influenza Type B (PCR) Negative (Neg) RSV (RT-PCR) Negative (Neg) Imaging Data Attestation: I personally reviewed and interpreted this imaging study as follows: MDM Narrative Prior records/ancillary studies reviewed. Triage Nursing notes reviewed. Additional history obtained from EMS The patient's history was concerning for respiratory difficulties. Differential diagnosis: Etiologies such as infections, reactive airway disease, pneumonia, pneumothorax, COPD, CHF, cardiac ischemia, pulmonary embolism, musculoskeletal, gastrointestinal, as well as others were entertained. Physical examination: As above. ER treatment provided: An order was placed for continuous cardiac monitoring. The monitor shows a rate of 60-1 50 with a sinus rhythm. BiPAP. EMS gave 3 rounds of nitroglycerin. Patient states she had great improvement with this. On reassessment the patient felt better. Diagnostic interpretation by me: The electrocardiogram was ordered for dyspnea EKG: Normal sinus, T wave inversion in aVL and V6, minimal ST elevation in the anteroseptal leads, rate of 103. Impression sinus tachycardia with ST changes interpreted by myself I think arrhythmia is unlikely. EKG shows normal sinus rhythm with no interval abnormalities such as QT prolongation or WPW. There are no findings to suggest Brugada syndrome. Cardiac monitoring in the emergency department reveals no tachycardic or bradycardic dysrhythmia. Hypertrophic cardiomyopathy was considered but there are no clear historical elements pointing toward this. EKG is not suggestive. The QRS voltage is not extremely large and there are no suggestive Q waves. The labs revealed elevated BNP, elevated troponin. VBG reviewed. Hypomagnesia, neutropenic Imaging studies: Chest x-ray with mild pulmonary congestion similar to prior per my interpretation. Consultation: A consultation was placed with the hospitalist. The case was discussed and diagnostics were reviewed. The patient was evaluated in the ER for further treatment. This appears to be consistent with this of heart failure and COVID. Patient w as in the 80s on room air per EMS. She had great improvement with BiPAP and nitroglycerin. Medicine was consulted. She will be admitted. Admitting team does not want antibiotics at this time and this was deferred to them. By the evaluation outlined above emergent etiologies such as pulmonary embolism, reactive airway disease, pneumonia, pneumothorax, musculoskeletal, serious bacterial infections, as well as others were deemed relatively unlikely. The pt informed about the findings as listed above. All questions were answered and pleased with the treatment. The chart was completed utilizing [employer] Speech voice recognition software. Grammatical errors, random word insertions, pronoun errors, and incomplete sentences are an occassional consequence of this system due to software limitations, ambient noise, and hardware issues. Any formal questions or concerns about the content, text, or information contained within the body of this dictation should be directly addressed to the physician psychiatric assistant for clarification. Impression & Plan Acute CHF (congestive heart failure), Elevated troponin, COVID-19 Discharge Plan Visit Data Chief Complaint: Respiratory Distress Stated Complaint: RESPIRATORY DISTRESS ED Provider: Karen Smith ED Midlevel Provider: Mary Trujillo Discharge Problem: Acute CHF (congestive heart failure), Elevated troponin, COVID-19 Patient Disposition: Admitted As Inpatient Condition: Fair Forms Stand Alone Forms: [email or web address] Prescriptions Prescriptions: No Action magnesium oxide 400 mg magnesium tablet 400 mg PO HS RF: 0 prochlorperazine maleate 10 mg tablet 10 mg PO Q6H PRN (Reason: nausea and vomiting) RF: 0 ondansetron 8 mg Tablet,Disintegrating 8 mg PO Q8H PRN (Reason: Nausea) RF: 0 ergocalciferol (vitamin D2) [Vitamin D2] 50,000 unit Capsule 50,000 unit PO UD RF: 0 cyclosporine [Restasis] 0.05 % Dropperette 1 drp OPHTHALMIC (EYE) Q12H RF: 0 ascorbic acid (vitamin C) [Vitamin C] 1,000 mg Tablet 1 g PO QAM RF: 0 atorvastatin [Lipitor] 10 mg tablet 10 mg PO QPM RF: 0 cyanocobalamin (vitamin B-12) [Vitamin B-12] 1,000 mcg Tablet 3,000 mcg PO QAM RF: 0 losartan [Cozaar] 100 mg tablet 100 mg PO QAM RF: 0 Prolia 60 mg/mL Syringe 60 mg SUBCUT .Q6MO RF: 0 carvedilol [Coreg] 6.25 mg tablet 6.25 mg PO BID RF: 0 pantoprazole 40 mg tablet,delayed release (DR/EC) 40 mg PO BID RF: 0 polyethylene glycol 3350 [Miralax] 17 gram Powder In Packet 17 g PO DAILY PRN (Reason: constipation) Qty: 14 RF: 0 sennosides-docusate sodium [Senokot-S] 8.6-50 mg tablet 1 tab-cap PO DAILY Qty: 14 RF: 0 prednisone 10 mg tablet 10 mg PO UD Qty: 7 RF: 0 diphenhydramine HCl [Allergy] 25 mg tablet 25 mg PO TID PRN (Reason: itching) Qty: 14 RF: 0 Referrals Referrals: Rachel Centeno MD [Primary Care Provider] - Discharge Problem: Acute CHF (congestive heart failure) Qualifiers: Heart failure type: unspecified Qualified Code(s): I50.9 - Heart failure, unspecified
[2021-07-23 04:00] LABS: Base Excess VBG -3.3 mEq/L; HCO3 VBG 21 mmol/L; Oxygen Saturation VBG 71.4 %; PCO2 VBG 36 mmHg (38-50); PO2 VBG 40 mmHg; pH VBG 7.39 (7.36-7.41)
[2021-07-23 04:22] LABS: Anion Gap 11 (3-11); BUN Creatinine Ratio 27.3 (10-20); Blood Urea Nitrogen 12 mg/dl (6-23); Calcium 8.3 mg/dl (8.5-10.1); Carbon Dioxide 21 mmol/L (21-32); Chloride 91 mmol/L (98-107); Est GFR (African American) 116.1 ml/min; Est GFR (Non-African American) 100.1 ml/min; Glucose 181 mg/dl (70-99(Fasting)); Potassium 3.7 mmol/L (3.5-5.1); Sodium 123 mmol/L (136-145)
[2021-07-23] MEDS ORDERED: FUROSEMIDE INJ 20 MG/2 ML VIAL IV ONE (04:24)
--- NOTE | 2021-07-23 04:24 | Emergency Department Note ---
ED Visit Note I was consulted by the Advanced Practice Provider. I saw the patient personally and performed a substantive portion of the visit. This includes aspects of the HPI, MDM, diagnostic interpretations, and disposition/plan. . : Acute CHF (congestive heart failure) Qualifiers: Heart failure type: unspecified Qualified Code(s): I50.9 - Heart failure, unspecified
[2021-07-23] MEDS ORDERED: THIAMINE HCL 100 MG in SYRINGE 9 ML IV STA (04:26)
[2021-07-23 04:30] LABS: Alanine Aminotransferase 45 U/L (7-52); Albumin Globulin Ratio 1.3 (0.9-2); Albumin Level 3.6 gm/dl (3.4-5.0); Alkaline Phosphatase 65 U/L (34-104); Aspartate Aminotransferase 60 U/L (13-39); Bilirubin,Total 0.6 mg/dl (0.2-1.0); Globulin 2.7 gm/dl (2.5-4.0); Magnesium 0.9 mg/dl (1.7-2.4); Total Protein 6.3 gm/dl (6.0-8.3)
[2021-07-23 04:32] LABS: Influenza A virus by PCR Negative (Neg); Influenza B virus by PCR Negative (Neg); RSV by PCR Negative (Neg)
[2021-07-23 04:38] LABS: SARS CoV2 RNA(COVID-19) InHosp POSITIVE (Negative)
[2021-07-23] MEDS ORDERED: dexAMETHasone 6 MG in SYRINGE 0 ML IV ONE (04:42)
[2021-07-23] MEDS ORDERED: OPTIRAY 320 125ml IV ONE (04:44)
[2021-07-23 04:45] LABS: Hematocrit (blood only) 24.3 % (37-47); Hemoglobin 8.3 g/dL (12.0-16.0); Mean Corpuscular Hemoglobin 32.2 pg (25-34); Mean Corpuscular Hgb Conc 34.2 g/dL (32-36); Mean Corpuscular Volume 94.2 fL (80-100); Mean Platelet Volume 9.4 fL (7.4-10.4); Platelet Count 228 K/uL (130-400); RDW Coefficient of Variation 14.2 % (11.5-14.5); RDW Standard Deviation 47.7 fL (36.4-46.3); Red Blood Count 2.58 M/uL (4.2-5.4); White Blood Count 0.64 K/uL (4.8-10.8)
[2021-07-23 04:48] LABS: Giant Platelets 2+; Lymphocytes # (auto) 0.42 K/uL (1.2-3.4); Lymphocytes % (auto) 65.6 %; Monocytes # (auto) 0.22 K/uL (0.11-0.59); Monocytes % (auto) 34.4 %
--- NOTE | 2021-07-23 04:51 | History & Physical Report ---
Date of Service July 23, 2021 Assessment & Plan (1) Acute hypoxemic respiratory failure: Plan: Multifactorial : Severe COVID-19 pneumonia Mild decompensated heart failure, history systolic dysfunction, underlying pulm hypertension Rule out pulm embolism Valvular heart disease (moderate MR on recent TTE) hypertension, elevated secondary to illness hyperlipidemia, on statin Rx hx BRCA gene mutation (bilateral breast cancer status post surgery, chemoradiation, metastatic ovarian cancer status post surgery ongoing chemotherapy) Acute on chronic anemia, neutropenia likely secondary to chemotherapy Acute on chronic hyponatremia, alcohol abuse possibly contributory Hypomagnesemia prediabetes, hemoglobin A1c of 5.20 February 2021 past tobacco abuse PCU Continue BiPAP for now Baseline ABG Decadron and Remdesivir indicated for severe COVID-19 pneumonia (Patient was counseled regarding potential adverse effects from Remdesivir therapy and provided with patient education sheet. Pulmonary consult if without improvement Lasix [address] chest PE study Anemia work-up, peripheral blood smear, transfuse PRBC if hemoglobin less than 7 and or for symptomatic anemia follow serum sodium, hyponatremia work-up, Nephrology consultation Re: Acute on chronic hyponatremia AWSS, DT precautions replace electrolytes Basal bolus insulin given anticipated hyperglycemia from steroid Rx, ISS BG goal 1 10-1 40, update hemoglobin A1c DVT prophylaxis. Lovenox subcu Full code Total critical care time was 45 minutes. History of Present Illness Chief Complaint: Shortness of breath Primary Care Provider: Rachel Centeno MD History obtained from patient and records. Medical history significant for chronic systolic heart failure (EF 45 to 50%, TTE 2021), moderate MR, pulmonary hypertension, hypertension, hyperlipidemia, BRCA gene mutation, bilateral breast cancer status post surgery, chemoradiation, metastatic ovarian cancer status post surgery ongoing chemotherapy, chronic anemia (baseline hemoglobin 10-11), chronic hyponatremia, prediabetes, alcohol abuse as per records, past tobacco abuse. Last confinement May 2021 for hypersensitivity reaction to Doxorubicin. Patient noted worsening shortness of breath especially on exertion yesterday. No chest pain, no unusual cough symptoms. No fever, no chills. No fluid retention as per patient. Not sure about recent COVID-19 contacts. Patient received COVID-19 vaccination. Patient called EMS last night with worsening shortness of breath. Patient noted to be tachycardic, hypoxemic O2 sats 80s on room air. Nitropaste and neb treatment administered by EMS. Patient placed on the BiPAP. Patient brought to the ER for evaluation. 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 Allergies Allergy/AdvReac Type Severity Reaction Status Date / Time doxorubicin Allergy Severe Verified 07/23/21 06:22 ENVIRONMENTAL Allergy Severe IF EXPOSED Uncoded 07/23/21 06:22 TOO LONG--THROAT CLOSES Home Medications Medication Instructions Recorded Confirmed Type cyclosporine 0.05 % eye drops in a 1 drp OPHTHALMIC (EYE) Q12H 08/18/18 06/11/21 History dropperette (Restasis) ergocalciferol (vitamin D2) 1,250 50,000 unit PO UD 08/18/18 06/11/21 History mcg (50,000 unit) capsule (Vitamin D2) ascorbic acid (vitamin C) 1,000 mg 1 g PO QAM 09/22/19 06/11/21 History tablet (Vitamin C) atorvastatin 10 mg tablet (Lipitor) 10 mg PO QPM 09/22/19 06/11/21 History cyanocobalamin (vitamin B-12) 3,000 mcg PO QAM 09/22/19 06/11/21 History 1,000 mcg tablet (Vitamin B-12) denosumab 60 mg/mL subcutaneous 60 mg SUBCUT .Q6MO 09/22/19 06/11/21 History syringe (Prolia) losartan 100 mg tablet (Cozaar) 100 mg PO QAM 09/22/19 06/11/21 History ondansetron 8 mg disintegrating 8 mg PO Q8H PRN 12/13/19 06/11/21 History tablet magnesium oxide 400 mg PO HS 05/14/21 06/11/21 History prochlorperazine maleate 10 mg 10 mg PO Q6H PRN 05/14/21 06/11/21 History tablet carvedilol 6.25 mg tablet (Coreg) 6.25 mg PO BID 06/09/21 06/11/21 History pantoprazole 40 mg tablet,delayed 40 mg PO BID 06/11/21 06/11/21 History release diphenhydramine HCl 25 mg tablet 25 mg PO TID PRN #14 tab 06/12/21 Rx (Allergy) polyethylene glycol 3350 17 gram 17 g PO DAILY PRN #14 ea 06/12/21 Rx oral powder packet (Miralax) prednisone 10 mg tablet 10 mg PO UD #7 tab 06/12/21 Rx sennosides 8.6 mg-docusate sodium 1 tab-cap PO DAILY #14 tab 06/12/21 Rx 50 mg tablet (Senokot-S) Past Med/Surg History Medical History Arthritis Chronic back pain Constipation Degenerative disc disease History of breast cancer Rt - 17 years ago - S/p Rt mastectomy, chemo + radiation, Lt - 2018 - s/p lumpectomy x 2, raidation History of depression History of gastric ulcer History of kidney stones History of uterine fibroid Hypertension Limb alert care status RUE Malignant neoplasm of central portion of left breast in female, estrogen receptor negative 2016 Osteoarthritis Osteoporosis Ovarian cancer Spinal stenosis 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 followed with physical therapy. Valvular heart disease follows with [facility] [place] Cardiology Dr Shabazz; moderate MR, mild global hypokinesis LV, RVSP 40-50mmHg Surgical History H/O knee surgery left knee reconstruction H/O: hysterectomy History of breast biopsy History of foot surgery BL History of lumpectomy of left breast x 2 2019 History of tooth extraction Hx of right mastectomy with lymph node removal 1991 Port-A-Cath in place (06/09/21) Insertion of Access Port with Fluoroscopy(Left) - Amador Archibald DO, FACS 06/09/2021 Status post correction of deviated nasal septum Family History Father Esophageal cancer Social History Smoking Status: Former smoker Years Smoked: 20; Cigarettes Per Day: 2; Second Hand Exposure: No; Hx Alcohol Use: Yes Alcohol type: beer Hx Substance Use: No Preferred Language: Armenian Communication Ability: Effective English Adjunct Faculty Required: No Beliefs That Will Affect Care: None Current Living Situation: Alone Current Living Situation Comment: Lives in [address] building Feels Safe at Home: Yes Assistive Devices: None Review of Systems Review of Systems: As per HPI, all other systems reviewed and negative Physical Exam Physical Exam: GENERAL: Slightly uncomfortable, slightly anxious, minimal respiratory distress SKIN: Pallor , warm HEENT: Pale palpebral conjunctivae, no ptosis, dry buccal mucosa, BiPAP in place NECK : Supple, no tenderness CHEST : Decreased breath sounds, no tenderness HEART : RRR, no obvious murmurs ABDOMEN: Some distention, nontender EXTREMITIES : No LE swelling/tenderness, no other conspicuous deformities noted NEUROLOGIC : Coherent, no facial asymmetry, no other gross focality Results & Data Results & Data ([facility]) Vital Signs (Past 12 Hours) Vital Signs Temp Pulse Pulse Resp BP BP Pulse Ox 07/23/21 03:42 100 H 22 100 07/23/21 03:22 105 H 25 H 151/88 H 99 07/23/21 03:18 112 H 38 H 100 07/23/21 03:13 36.5 C 103 H 30 H 159/99 H 100 Laboratory Results Laboratory Results WBC 0.64 K/uL (4.8-10.8) L* 07/23/21 03:37 RBC 2.58 M/uL (4.2-5.4) L 07/23/21 03:37 Hgb 8.3 g/dL (12.0-16.0) L 07/23/21 03:37 Hct 24.3 % (37-47) L 07/23/21 03:37 MCV 94.2 fL (80-100) 07/23/21 03:37 MCH 32.2 pg (25-34) 07/23/21 03:37 MCHC 34.2 g/dL (32-36) 07/23/21 03:37 RDW Std Deviation 47.7 fL (36.4-46.3) H 07/23/21 03:37 RDW Coeff of Cain 14.2 % (11.5-14.5) 07/23/21 03:37 Plt Count 228 K/uL (130-400) 07/23/21 03:37 MPV 9.4 fL (7.4-10.4) 07/23/21 03:37 Immature Gran % (Auto) 0.0 % 07/23/21 03:37 Neut % (Auto) 0.0 % 07/23/21 03:37 Lymph % (Auto) 65.6 % 07/23/21 03:37 [place] % (Auto) 34.4 % 07/23/21 03:37 Eos % (Auto) 0.0 % 07/23/21 03:37 Baso % (Auto) 0.0 % 07/23/21 03:37 Neut # (Auto) 0.00 K/uL (1.4-6.5) L* 07/23/21 03:37 Lymph # (Auto) 0.42 K/uL (1.2-3.4) L 07/23/21 03:37 [place] # (Auto) 0.22 K/uL (0.11-0.59) 07/23/21 03:37 Eos # (Auto) 0.00 K/uL (0-0.5) 07/23/21 03:37 Baso # (Auto) 0.00 K/uL (0-0.2) 07/23/21 03:37 Immature Gran # (Auto) 0.00 K/uL (0.00-0.02) 07/23/21 03:37 Giant Platelets 2+ 07/23/21 03:37 APTT 28.0 Seconds (21.0-31.0) 07/23/21 03:37 PTT Ratio 1.0 07/23/21 03:37 VBG pH 7.39 (7.36-7.41) 07/23/21 03:37 VBG pCO2 36 mmHg (38-50) L 07/23/21 03:37 VBG pO2 40 mmHg 07/23/21 03:37 VBG HCO3 21 mmol/L 07/23/21 03:37 VBG O2 Saturation 71.4 % 07/23/21 03:37 VBG Base Excess -3.3 mEq/L 07/23/21 03:37 Sodium 123 mmol/L (136-145) L 07/23/21 03:37 Potassium 3.7 mmol/L (3.5-5.1) 07/23/21 03:37 Chloride 91 mmol/L (98-107) L 07/23/21 03:37 Carbon Dioxide 21 mmol/L (21-32) 07/23/21 03:37 Anion Gap 11 (3-11) 07/23/21 03:37 BUN 12 mg/dl (6-23) 07/23/21 03:37 Creatinine 0.44 mg/dl (0.6-1.2) L 07/23/21 03:37 Est Cr Clr Drug Dosing Not Reportable 07/23/21 03:37 Est GFR ( Amer) 116.1 ml/min 07/23/21 03:37 Est GFR (Non-Af Amer) 100.1 ml/min 07/23/21 03:37 BUN/Creatinine Ratio 27.3 (10-20) H 07/23/21 03:37 Glucose 181 mg/dl (70-99(Fasting)) H 07/23/21 03:37 Osmolality 261 mOsm/kg (280-300) L 07/23/21 03:37 Calcium 8.3 mg/dl (8.5-10.1) L 07/23/21 03:37 Magnesium 0.9 mg/dl (1.7-2.4) L* 07/23/21 03:37 Total Bilirubin 0.6 mg/dl (0.2-1.0) 07/23/21 03:37 AST 60 U/L (13-39) H 07/23/21 03:37 ALT 45 U/L (7-52) 07/23/21 03:37 Alkaline Phosphatase 65 U/L (34-104) 07/23/21 03:37 Troponin I High Sens 25.2 pg/ml (0-14) H 07/23/21 03:37 B-Natriuretic Peptide 793 pg/ml (0-100) H 07/23/21 03:37 Total Protein 6.3 gm/dl (6.0-8.3) 07/23/21 03:37 Albumin 3.6 gm/dl (3.4-5.0) 07/23/21 03:37 Globulin 2.7 gm/dl (2.5-4.0) 07/23/21 03:37 Albumin/Globulin Ratio 1.3 (0.9-2) 07/23/21 03:37 SARS-CoV-2 (PCR) POSITIVE (Negative) A* 07/23/21 03:49 Influenza Type A (PCR) Negative (Neg) 07/23/21 03:49 Influenza Type B (PCR) Negative (Neg) 07/23/21 03:49 RSV (RT-PCR) Negative (Neg) 07/23/21 03:49 Diagnostic Findings Chest x-ray as per my interpretation : Cardiomegaly, minimal congestion EKG as per my interpretation : Rate 105, sinus tachycardia, LAD, LAFB, T wave abnormalities lateral leads cardiomegaly, interstitial congestion
[2021-07-23] MEDS: MAGNESIUM SULFATE / D5W 1 GM/100 ML BAG IV SCH ×5 (04:52→17:58)
[2021-07-23] MEDS ORDERED: DEXAMETHASONE SOD INJ 4 MG/ML VIAL IV ONE (05:00)
[2021-07-23 05:05] LABS: Thyroid Stimulating Hormone 6.332 uIu/ml (0.300-4.500)
[2021-07-23] MEDS ORDERED: GLUCAGON FOR INJ 1 MG VIAL SQ PRN (05:17)
[2021-07-23] MEDS ORDERED: DEXTROSE 50% 50 ML SYRINGE IV PRN (05:17)
[2021-07-23] MEDS ORDERED: INSULIN GLARGINE SOLOSTAR 100 UNITS/ML 3 ML PEN SC STA (05:17)
[2021-07-23] MEDS ORDERED: GLUCOSE 10 TABS/TUBE PO PRN (05:17)
[2021-07-23] MEDS ORDERED: CARBOHYDRATES FOR HYPOGLYCEMIA PO PRN (05:17)
[2021-07-23] MEDS ORDERED: GLUCOSE 40% GEL 15 GM TUBE PO PRN (05:17)
[2021-07-23] MEDS ORDERED: XOPENEX/ATROVENT 1.25mg/0.5MG NEB COMBO NEB PRN (05:20)
[2021-07-23] MEDS ORDERED: REMDESIVIR 200 MG in SODIUM CHLORIDE 0.9% 210 ML IV STA (05:26)
[2021-07-23] MEDS ORDERED: LEVALBUTEROL 1.25MG/0.5ML NEB INH PRN (05:30)
[2021-07-23] MEDS ORDERED: IPRATROPIUM BROMIDE NEB SOLN 0.02% 2.5 ML VIAL INH PRN (05:30)
[2021-07-23 05:35] LABS: Appearance Urine Cloudy (Clear); Bacteria Urine Automated 4+ (Negative); Bilirubin Urine Negative (Negative); Blood Urine Trace (Negative); Color Urine Yellow; Epithelial Cell Urine Auto >30 /lpf (0-5); Glucose Urine UA Negative (Negative); Ketones Urine Negative (Negative); Leukocyte Esterase Urine Negative (Negative); Nitrite Urine Negative (Negative); Protein Urine 1+ (Negative); Specific Gravity Urine 1.019 (1.000-1.030); Urobilinogen Urine Negative (Negative); pH Urine 6.5 (4.5-7.5)
[2021-07-23 05:39] LABS: T4 Free Thyroxine 1.13 ng/dl (0.61-1.60)
[2021-07-23 05:52] LABS: RBC Urine Automated 0-4 /hpf (0-4)
[2021-07-23] MEDS ORDERED: POTASSIUM CHLORIDE CRTAB 20 MEQ TABCR PO ONE (06:00)
[2021-07-23] MEDS ORDERED: METOPROLOL TARTRATE 1 MG/ML VIAL IV STA (06:03)
[2021-07-23 07:05] LABS: Estimated Average Glucose 154 mg/dl
--- NOTE | 2021-07-23 07:22 | XRay Report ---
XR chest 1V portable CLINICAL HISTORY: Atypical chest pain TECHNIQUE: Single frontal radiograph of the chest was obtained. Comparison: Chest radiograph 06/11/2021 FINDINGS: A port catheter is unchanged. Surgical clips are seen in the right axilla. Cardiomegaly is noted. Pro minence and cephalization of the vasculature is seen. No evidence of pleural effusion or pneumothorax . IMPRESSION: Mild pulmonary edema is seen, improved from the prior exam. ACT 112: Negative or not required by law. Electronically signed by: Cameron Dawson M.D. 07/23/2021 7:20 AM
--- NOTE | 2021-07-23 07:27 | CT Scan Report ---
CHEST CTA for PULMONARY ARTERIES CT DOSE: 223.85 mGy.cm HISTORY: Hypoxia. Shortness of breath. TECHNIQUE: Multiaxial CT images of the chest were performed following the intravenous administration of contrast to evaluate the pulmonary arteries. Maximal intensity projection images were also obtaine d. A dose lowering technique was utilized adhering to the principles of ALARA. COMPARISON STUDY: Chest CTA 06/11/2021. FINDINGS: Limited views of the upper abdomen demonstrate normal liver and spleen. Partially visualize d nodular thickening of the left adrenal gland is again noted. Normal right adrenal gland. Normal eso phagus. The thyroid gland enhances normally. Prior right mastectomy with right axillary lymph node di ssection. No significant mediastinal or hilar lymphadenopathy. Focal severe stenosis within the proxi mal right subclavian artery versus possible occlusion. This remains unchanged. Normal caliber thoraci c aorta with no evidence for dissection. Moderate calcified plaque within the coronary arteries. The heart remains enlarged. There are small bilateral pleural effusions which have slightly improved. Mot ion artifact within the bilateral lower lobe subsegmental pulmonary arteries resulting in suboptimal evaluation. A few small nonocclusive weblike filling defects seen within the right lower lobar pulmon shara artery and a segmental branch of the right upper lobe consistent with nonocclusive chronic pulmon shara emboli. No additional filling defects identified within the pulmonary arteries to suggest an acut e pulmonary embolus. Left jugular Port-A-Cath terminates in the SVC. No suspicious lytic or blastic o sseous lesions. Right apical scarlike densities remain unchanged. No pneumothorax. Mild interlobular septal thickening with groundglass densities within the upper to mid lung zones consistent with mild pulmonary edema. There are patchy bibasilar airspace opacities which are nonspecific and could repres ent atelectasis or less likely a pneumonia. No suspicious pulmonary nodules identified. IMPRESSION: 1. Nonocclusive weblike filling defects seen within the right lower lobar pulmonary artery and a righ t upper lobe segmental pulmonary artery consistent with chronic nonocclusive pulmonary emboli. No juan david dence for acute pulmonary emboli. 2. Mild interstitial pulmonary edema with small bilateral pleural effusions. 3. Patchy bibasilar densities favor atelectasis. A pneumonia could also have a similar appearance. 4. Focal severe stenosis versus possible occlusion within the proximal right subclavian artery. This remains unchanged. 5. Additional findings as described above. ACT 112: Negative or not required by law. Electronically signed by: Matt Umanzor M.D. 07/23/2021 7:25 AM
[2021-07-23] MEDS ORDERED: MULTIVITAMIN TAB PO SCH (09:00)
[2021-07-23] MEDS ORDERED: POLYETHYLENE (MIRALAX) 17 GM PACK PO PRN (09:04)
[2021-07-23] MEDS ORDERED: oxyCODONE HCL IR 5 MG TAB (IMMEDIATE RELEASE) PO PRN (09:04)
[2021-07-23] MEDS ORDERED: carvediloL 3.125 MG TAB PO SCH (09:04)
[2021-07-23] MEDS ORDERED: ACETAMINOPHEN 325 MG TAB PO PRN (09:04)
[2021-07-23] MEDS ORDERED: PROMETHAZINE HCL 6.25 MG in SODIUM CHLORIDE 0.9% 50 ML IV PRN (09:04)
[2021-07-23] MEDS ORDERED: NITROGLYCERIN SL 0.4 MG/TAB TAB SL PRN (09:04)
[2021-07-23] MEDS ORDERED: LORazepam 2 MG/1 ML VIAL IV PRN (09:04)
[2021-07-23] MEDS ORDERED: LOSARTAN POTASSIUM 50 MG TAB PO SCH (09:04)
[2021-07-23] MEDS: INSULIN ASPART PER UNIT SC SCH ×4 (09:13→21:42)
[2021-07-23] MEDS ORDERED: FOLIC ACID 1 MG TAB PO SCH (09:15)
[2021-07-23 10:14] LABS: Reticulocyte % 0.5 % (0.5-2.0); Reticulocytes # < 0.02 10^6/uL (0.02-0.10)
--- NOTE | 2021-07-23 10:16 | Nephrology Consultation ---
Date of Consultation July 23, 2021 Assessment & Plan (1) Electrolyte and fluid disorder: euvolemic hyponatremia, improving with supportive care. goal sNa is 129 for tomorrow AM hypomagnesemia> -recheck mag w/ next labs >maintain eukalemia >no IVF for now and would use lasix PRN only until if possible 24-48 hrs out from IV contrast >>at risk for JUAN w/ IV contrast > hold losartan (given today); renal function at baseline (creatinine 0.4-0.5); lasix PRN only >daily bmp History of Present Illness Reason for Consultation: hyponatremia Requesting Physician: Dr Elias Attending Physician: Yan Woods MD History of Present Illness 75-year-old female whom I am asked to see for hyponatremia was admitted this morning with acute hypoxemic respiratory failure from severe COVID-pneumonia as well as decompensated valvular/systolic heart failure and pulmonary hy pertension. Past medical history includes chronic systolic heart failure with EF this year 45 to 50% and MR and pulmonary hypertension, no acute but + chronic PE, hypertension, metastatic ovarian cancer status post surgery with ongoing chemo therapy, history of breast cancer status post surgery\\chemo\\radiation, chronic hyponatremia (generally in [employer] in the low to mid 130s) and chronic hypoma gnesemia. She was initially on BiPAP (down to 2LNC by the time I saw her at about 1030 this AM) and receiving Decadron and remdesivir. Had CT angio chest and 1 dose Lasix 20 mg IV. Also receiving 3 g IV magnesium Presenting sodium 123 this morning at 4 AM with repeat reading pending> 127> 128. Potassium was 3.7 and creatinine 0.4. Her magnesium was 0.9. She is profoundly neutropenic w/ ANC of zero. Tells me she feels "pooped" and that weakness/fatiguability bothers her more than anything. has no stamina. has been on 3 CTX agents for ovarian CA metastasized to her colon. last dose of 3rd agent was about 3 wks back and per pt well tolerated. minimal SOB; ongoing cough. + constipation. no N; eats about 2 meals daily most days (not supper) and no change in this in recent weeks. Allergies Allergy/AdvReac Type Severity Reaction Status Date / Time doxorubicin Allergy Severe Verified 07/23/21 06:22 ENVIRONMENTAL Allergy Severe IF EXPOSED Uncoded 07/23/21 06:22 TOO LONG--THROAT CLOSES Home Medications Medication Instructions Recorded Confirmed Type cyclosporine 0.05 % eye drops in a 1 drp OPHTHALMIC (EYE) Q12H 08/18/18 07/23/21 History dropperette (Restasis) ergocalciferol (vitamin D2) 1,250 50,000 unit PO .Q2WKS 08/18/18 07/23/21 History mcg (50,000 unit) capsule (Vitamin D2) ascorbic acid (vitamin C) 1,000 mg 1 g PO QAM 09/22/19 07/23/21 History tablet (Vitamin C) atorvastatin 10 mg tablet (Lipitor) 10 mg PO HS 09/22/19 07/23/21 History denosumab 60 mg/mL subcutaneous 60 mg SUBCUT .Q6MO 09/22/19 07/23/21 History syringe (Prolia) losartan 100 mg tablet (Cozaar) 100 mg PO QAM 09/22/19 07/23/21 History magnesium oxide 400 mg PO HS 05/14/21 07/23/21 History pantoprazole 40 mg tablet,delayed 40 mg PO BID 06/11/21 07/23/21 History release Melatonin-Chamomile 3-500mg-Mcg 1 tab PO HS 07/23/21 07/23/21 History Tablets bismuth subsalicylate 262 mg 2 tab PO UD 07/23/21 07/23/21 History chewable tablet carvedilol 3.125 mg tablet 3.125 mg PO BID 07/23/21 07/23/21 History cyanocobalamin (vitamin B-12) 500 500 mcg PO DAILY 07/23/21 07/23/21 History mcg tablet (Vitamin B-12) docusate sodium 100 mg capsule 100 mg PO BID 07/23/21 07/23/21 History (Colace) mirtazapine 15 mg tablet 7.5 mg PO HS 07/23/21 07/23/21 History potassium chloride 10 mEq 10 meq PO DAILY 07/23/21 07/23/21 History capsule,extended release Patient History Medical History (Updated 07/23/21 @ 17:58 by Pato Cabral MD) Arthritis Chronic back pain Chronic pulmonary embolism Constipation Degenerative disc disease Electrolyte and fluid disorder History of breast cancer Rt - 17 years ago - S/p Rt mastectomy, chemo + radiation, Lt - 2018 - s/p lumpectomy x 2, raidation History of depression History of gastric ulcer History of kidney stones History of uterine fibroid Hypertension Limb alert care status RUE Malignant neoplasm of central portion of left breast in female, estrogen r eceptor negative 2016 Osteoarthritis Osteoporosis Ovarian cancer Spinal stenosis 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 followed with physical therapy. Valvular heart disease follows with [facility] [place] Cardiology Dr Shabazz; moderate MR, mild global hypokinesis LV, RVSP 40-50mmHg Surgical History H/O knee surgery left knee reconstruction H/O: hysterectomy History of breast biopsy History of foot surgery BL History of lumpectomy of left breast x 2 2019 History of tooth extraction Hx of right mastectomy with lymph node removal 1991 Port-A-Cath in place (06/09/21) Insertion of Access Port with Fluoroscopy(Left) - Amador Archibald DO, FACS 06/09/2021 Status post correction of deviated nasal septum Family History Father Esophageal cancer Social History Smoking Status: Former smoker Years Smoked: 20; Cigarettes Per Day: 2; Second Hand Exposure: No; Do You Dip or Chew Tobacco: No; Tobacco Cessation Education Requested by Patient: No Hx Alcohol Use: Yes Alcohol type: beer Hx Substance Use: No Preferred Language: Italian Communication Ability: Effective 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: No Beliefs That Will Affect Care: Church Church Beliefs: moravian Current Living Situation: Alone and Personal Care Facility Current Living Situation Comment: [address] [place] Other Information That Helps Us Care for You: No Feels Safe at Home: Yes Assistive Devices: Glasses Review of Systems Review of Systems: All systems reviewed & are unremarkable except as noted in HPI & below Physical Exam Constitutional: well developed, average body habitus, + frail appearing and cooperative; no acute distress Eyes: EOM intact bilaterally ENMT: Ears: no external ear abnormality Nose: no external nose abnormality Mouth: + dry oral mucous membranes hoarse voice Neck: no nuchal rigidity Respiratory: normal respiratory effort and + cough (dry) Auscultation: + diminished lung sounds Cardiovascular: Rate/Rhythm: regular rhythm and + tachycardic Extremities: no edema Gastrointestinal (Abdomen): Inspection/Auscultation: normal bowel sounds Percussion/Palpation: abdomen soft; abdomen nontender Musculoskeletal: Extremities: strength 5/5 throughout (maneuvers easier than e xpected though still tentative for exam) Skin: no rashes, warm and dry Neurologic: heath, fluent speech, no tremor; fatigues easily Results & Data ([facility]) Vital Signs (Past 12 Hours) Vital Signs Temp Pulse Pulse Resp BP BP Pulse Ox 07/23/21 07:30 83 20 120/70 100 07/23/21 07:14 83 24 100 07/23/21 07:00 77 20 141/89 H 100 07/23/21 06:26 93 H 152/102 H 07/23/21 05:03 98 H 26 H 156/106 H 99 07/23/21 03:42 100 H 22 100 07/23/21 03:22 105 H 25 H 151/88 H 99 07/23/21 03:18 112 H 38 H 100 07/23/21 03:13 36.5 C 103 H 30 H 159/99 H 100 Laboratory Results 07/23/21 15:[address] angio Chest 07/23 1. Nonocclusive weblike filling defects seen within the right lower lobar pulmonary artery and a right upper lobe segmental pulmonary artery consistent with chronic nonocclusive pulmonary emboli. No evidence for acute pulmonary emboli. 2. Mild interstitial pulmonary edema with small bilateral pleural effusions. 3. Patchy bibasilar densities favor atelectasis. A pneumonia could also have a similar appearance. 4. Focal severe stenosis versus possible occlusion within the proximal right subclavian artery. This remains unchanged. 5. Additional findings as described above. CXR mild pulmonary edema, improved from previous
[2021-07-23 10:39] LABS: C Reactive Protein 3.12 mg/dl (0-0.5)
[2021-07-23] MEDS: PANTOprazole 40 MG TAB PO SCH ×2 (10:45→21:53)
--- NOTE | 2021-07-23 10:55 | Pulmonary Consultation ---
Date of Consultation July 23, 2021 Assessment & Plan (1) Acute hypoxemic respiratory failure: Continue supplemental oxygen and as needed BiPAP. Hypoxia mostly related to acute CHF. (2) Acute CHF (congestive heart failure): Continue diuresis and monitor urine output closely. Heart failure type: unspecified Qualified Code(s): I50.9 - Heart failure, unspecified (3) COVID-19: Reasonable to continue with Decadron and remdesivir at this time. Suspect more of her symptoms are related to CHF and COVID-19. Not a candidate for baricitinib or tocilizumab. (4) Chronic pulmonary embolism: I would recommend indefinite anticoagulation given the chronic pulmonary emboli seen and her hypercoagulable state given her malignancy. However, she is pancytopenic at this present time which is likely related to her chemotherapy. Will defer initiation of anticoagulation to her primary team and oncology. I do not think that her acute decompensation is related to chronic PE at present. Thank you for the consultation please call with questions. History of Present Illness Reason for Consultation: COVID-19 Attending Physician: Yan Woods MD History of Present Illness 75-year-old female with a past medical history of hyponatremia, hypertension, insomnia, GERD, systolic and diastolic CHF, metastatic ovarian cancer on chemotherapy and radiation who presented to the hospital due to worsening shortness of breath noted yesterday. She called EMS. In the ER she was found to be tachycardic and hypoxemic with saturations in the 80s. She is currently on nasal cannula. Labs demonstrated leukopenia with a white count of 640. Hemoglobin 8.3. Platelet count normal. VBG reviewed with a pH of 7.39. PCO2 36. Chest CTA from today reviewed with evidence of groundglass opacities and interlobular septal thickening with small bilateral effusions. Nonocclusive weblike filling defects within the right lower lobe pulmonary artery had right upper lobe segmental pulmonary artery noted by radiology. proBNP elevated at 793. Procalcitonin 0.50. Patient is currently on Decadron 6 mg daily and remdesivir 100 mg daily. 20 mg IV Lasix was given in the ER. She notes that her symptoms started abruptly last night with increasing shortness of breath and anxiety. She denies any chest pain or palpitations. She had similar symptoms after receiving a dose of doxorubicin. She noted swelling in her lower extremities which has improved today. Allergies Allergy/AdvReac Type Severity Reaction Status Date / Time doxorubicin Allergy Severe Verified 07/23/21 06:22 ENVIRONMENTAL Allergy Severe IF EXPOSED Uncoded 07/23/21 06:22 TOO LONG--THROAT CLOSES Home Medications Medication Instructions Recorded Confirmed Type cyclosporine 0.05 % eye drops in a 1 drp OPHTHALMIC (EYE) Q12H 08/18/18 07/23/21 History dropperette (Restasis) ergocalciferol (vitamin D2) 1,250 50,000 unit PO .Q2WKS 08/18/18 07/23/21 History mcg (50,000 unit) capsule (Vitamin D2) ascorbic acid (vitamin C) 1,000 mg 1 g PO QAM 09/22/19 07/23/21 History tablet (Vitamin C) atorvastatin 10 mg tablet (Lipitor) 10 mg PO HS 09/22/19 07/23/21 History denosumab 60 mg/mL subcutaneous 60 mg SUBCUT .Q6MO 09/22/19 07/23/21 History syringe (Prolia) losartan 100 mg tablet (Cozaar) 100 mg PO QAM 09/22/19 07/23/21 History magnesium oxide 400 mg PO HS 05/14/21 07/23/21 History pantoprazole 40 mg tablet,delayed 40 mg PO BID 06/11/21 07/23/21 History release Melatonin-Chamomile 3-500mg-Mcg 1 tab PO HS 07/23/21 07/23/21 History Tablets bismuth subsalicylate 262 mg 2 tab PO UD 07/23/21 07/23/21 History chewable tablet carvedilol 3.125 mg tablet 3.125 mg PO BID 07/23/21 07/23/21 History cyanocobalamin (vitamin B-12) 500 500 mcg PO DAILY 07/23/21 07/23/21 History mcg tablet (Vitamin B-12) docusate sodium 100 mg capsule 100 mg PO BID 07/23/21 07/23/21 History (Colace) mirtazapine 15 mg tablet 7.5 mg PO HS 07/23/21 07/23/21 History potassium chloride 10 mEq 10 meq PO DAILY 07/23/21 07/23/21 History capsule,extended release Patient History Medical History (Updated 07/23/21 @ 11:38 by Ramsey Phan MD) Arthritis Chronic back pain Chronic pulmonary embolism Constipation Degenerative disc disease Electrolyte and fluid disorder History of breast cancer Rt - 17 years ago - S/p Rt mastectomy, chemo + radiation, Lt - 2018 - s/p lumpectomy x 2, raidation History of depression History of gastric ulcer History of kidney stones History of uterine fibroid Hypertension Limb alert care status RUE Malignant neoplasm of central portion of left breast in female, estrogen receptor negative 2016 Osteoarthritis Osteoporosis Ovarian cancer Spinal stenosis 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 followed with physical therapy. Valvular heart disease follows with [facility] Cardiology Dr Shabazz; moderate MR, mild global hypokinesis LV, RVSP 40-50mmHg Surgical History H/O knee surgery left knee reconstruction H/O: hysterectomy History of breast biopsy History of foot surgery BL History of lumpectomy of left breast x 2 2019 History of tooth extraction Hx of right mastectomy with lymph node removal 1991 Port-A-[address] in [address] (06/09/21) Insertion of Access Port with Fluoroscopy(Left) - Amador Archibald DO, FACS 06/09/2021 Status post correction of deviated nasal septum Family History Father Esophageal cancer Social History Smoking Status: Former smoker Years Smoked: 20; Cigarettes Per Day: 2; Second Hand Exposure: No; Do You Dip or Chew Tobacco: No; Tobacco Cessation Education Requested by Patient: No Hx Alcohol Use: Yes Alcohol type: beer Hx Substance Use: No Preferred Language: Turkish Communication Ability: Effective Black Oxide Coating Equipment Tender Required: No Beliefs That Will Affect Care: Latter Day Latter Day Beliefs: sabianism Current Living Situation: Alone and Personal Care Facility Current Living Situation Comment: [address] Other Information That Helps Us Care for You: No Feels Safe at Home: Yes Assistive Devices: Glasses Review of Systems Review of Systems: All systems reviewed & are unremarkable except as noted in HPI & below Physical Exam Physical Exam: Constitutional: Patient appears to be of their stated age. Patient is in no apparent distress. Patient is well-developed. Eyes: Pupils are equal round and reactive to light. Conjunctivae are normal. Anicteric sclera. Ears nose, mouth and throat: Nasal cannula in place. No obvious deformities. Neck: Trachea is midline. Visual inspection is normal. Respiratory: Clear to auscultation bilaterally. No use of accessory muscles. No significant clubbing noted. Cardiovascular: Mild crackles bilaterally. No wheezes. Gastrointestinal: Normal bowel sounds, soft, nontender and nondistended. No hepatosplenomegaly noted. Musculoskeletal: No cyanosis. Patient is able to move all extremities. Skin: No rashes, warm dry and intact. Neurologic: No obvious focal neurological deficits seen. Psychiatric: Alert and oriented x3 with a euthymic affect. Results & Data Results & Data ([facility]) Vital Signs (Past 12 Hours) Vital Signs Temp Pulse Pulse Resp BP BP Pulse Ox 07/23/21 07:30 83 20 120/70 100 07/23/21 07:14 83 24 100 07/23/21 07:00 77 20 141/89 H 100 07/23/21 06:26 93 H 152/102 H 07/23/21 05:03 98 H 26 H 156/106 H 99 07/23/21 03:42 100 H 22 100 07/23/21 03:22 105 H 25 H 151/88 H 99 07/23/21 03:18 112 H 38 H 100 07/23/21 03:13 36.5 C 103 H 30 H 159/99 H 100 PG Care Time/CCT Total # of Minutes Spent Total Time Spent with Patient: Total time spent is greater than 50% in coordination of care (as documented) at patient's floor/unit and/or counseling patient: Coding Level of Care Code 67134 Initial Inpt Care Lvl 3 Diagnoses Acute hypoxemic respiratory failure J96.01 Acute CHF (congestive heart failure) I50.9 Heart failure type: unspecified COVID-19 U07.1 Chronic pulmonary embolism I27.82
[2021-07-23 10:56] LABS: Ferritin 1394.9 ng/ml (8-388)
[2021-07-23] MEDS: MULTIVITAMIN TAB PO SCH (11:16)
[2021-07-23] MEDS: THIAMINE HCL 100 MG TAB PO SCH (11:16)
[2021-07-23] MEDS: FOLIC ACID 1 MG TAB PO SCH (11:16)
[2021-07-23] MEDS: DOCUSATE SODIUM/SENNA 50/8.6MG TAB PO SCH (11:18)
[2021-07-23] MEDS: ENOXAPARIN INJ 40 MG/0.4 ML SYR SQ SCH (11:18)
--- NOTE | 2021-07-23 14:46 | Hospitalist Progress Note ---
Date of Service July 23, 2021 Assessment & Plan (1) Acute hypoxemic respiratory failure: Plan: Multifactorial : Severe COVID-19 pneumonia Mild decompensated heart failure, history systolic dysfunction, underlying pulm hypertension Rule out pulm embolism Valvular heart disease (moderate MR on recent TTE) hypertension, elevated secondary to illness hyperlipidemia, on statin Rx hx BRCA gene mutation (bilateral breast cancer status post surgery, chemoradiation, metastatic ovarian cancer status post surgery ongoing chemotherapy) Acute on chronic anemia, neutropenia likely secondary to chemotherapy Acute on chronic hyponatremia, alcohol abuse possibly contributory Hypomagnesemia prediabetes, hemoglobin A1c of 5.20 February 2021 past tobacco abuse PCU Weaned off BiPAP Continue Decadron and remdesivir Pulmonary service consulted Monitor LFTs and renal function On Lovenox for DVT prophylaxis 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 Lovenox subcu Full code plan of care discussed with patient in detail and at length all questions answered she is understanding, agreeable, comfortable with the plan of care Admission and Anticipated Discharge Date Admission Date: July 23, 2021 Subjective Follow-up for acute hypoxic respiratory failure, COVID-19 pneumonia, acute CHF exacerbation, etc. Seen resting in bed, on 2 L of oxygen via nasal cannula Sitting up in bed, comfortable, not in distress States she feels better compared to this morning Breathing is improving Has dry cough no chest pain, dyspnea, palpitations, dizziness No fevers or chills No other symptoms Review of Systems Review of Systems: all noted and negative except for above Physical Exam Physical Exam: General- oriented x 3, not in distress, speaks in sentences with no effort or accessory muscle use Head- atraumatic Eyes- PERRL, EOMI, anicteric ENT- oropharynx clear Neck- supple, no JVD, no adenopathy, no thyromegaly; carotids +2/2, no bruits appreciated Lungs-positive mild crackles bilateral bases Heart- normal rate, regular rhythm; no murmur, no gallop, no rub appreciated Abdomen- normal bowel sounds, nondistended, soft, nontender, no masses or hepatosplenomegaly Extremities- no pretibial edema, no calf tenderness; peripheral pulses intact Neuro- alert, oriented x 3; CN 2-12 grossly intact; motor 5/5 bilaterally;sensation 100% on all extremities; no other gross focal neurologic deficits Skin- warm & dry Results & Data Results & Data ([facility]) Vital Signs (Past 12 Hours) Vital Signs Temp Pulse Pulse Resp BP BP BP 07/23/21 12:11 36.7 C 89 19 149/77 H 07/23/21 09:04 36.5 C 96 H 18 159/78 H 07/23/21 09:00 36.5 C 96 H 18 159/78 H 07/23/21 07:30 83 20 120/70 07/23/21 07:14 83 24 07/23/21 07:00 77 20 141/89 H 07/23/21 06:26 93 H 152/102 H 07/23/21 05:03 98 H 26 H 156/106 H 07/23/21 03:42 100 H 22 07/23/21 03:22 105 H 25 H 151/88 H 07/23/21 03:18 112 H 38 H 07/23/21 03:13 36.5 C 103 H 30 H 159/99 H Pulse Ox 07/23/21 12:11 100 07/23/21 09:04 96 07/23/21 09:00 96 07/23/21 07:30 100 07/23/21 07:14 100 07/23/21 07:00 100 07/23/21 06:26 07/23/21 05:03 99 07/23/21 03:42 100 07/23/21 03:22 99 07/23/21 03:18 100 07/23/21 03:13 100
--- NOTE | 2021-07-23 18:01 | Cardiology Consultation ---
Date of Consultation July 23, 2021 Assessment & Plan (1) Acute hypoxemic respiratory failure: (2) COVID-19: (3) Mitral regurgitation: (4) Nonischemic cardiomyopathy: (5) Elevated troponin: (6) Chronic pulmonary embolism: ASSESSMENT/PLAN: 1. Acute hypoxemic respiratory failure: Much improved and feels near baseline. She has received only 1 dose of intravenous Lasix, 20 mg. Her net fluid balance is not able to be calculated as her urine has not been measured. She was reminded to keep her urine so that it can be measured. She does not appear significantly hypervolemic on exam at this time. She is being treated for COVID-19 pneumonia as well. Would try to maintain a net negative fluid balance with close monitoring of her renal function to avoid azotemia. Monitor electrolytes closely. Electrolytes have been supplemented by hospitalist service. 2. Elevated troponin: Her initial high sensitivity troponin was slightly elevated but there was no repeat. Will check a repeat 1 now. 3. Nonischemic cardiomyopathy: Most recent LV systolic function was mildly reduced. Repeat echo given acute presentation. 4. Mitral regurgitation: Has been non severe. Repeat echo as above. 5. COVID-19 pneumonia: As per primary service. 6. Chronic pulmonary embolism: As per primary service. 7. Disposition: Please call with any other questions or concerns. She follows with Dr. Shabazz and should follow-up on discharge. Thank you for allowing me to participate in the care of your patient. Please call for any other questions or concerns. Sincerely, Kevin Cabral M.D. History of Present Illness Reason for Consultation: "CHF exacerbation" Requesting Physician: Yan Woods MD Attending Physician: Yan Woods MD History of Present Illness Ms. Camarillo is a very pleasant 75-year-old female with a history significant for chronic pulmonary embolism, breast cancer (right mastectomy, left lumpectomy, chemo, XRT), mitral regurgitation, metastatic ovarian cancer (chemo and XRT), hypertension, hyponatremia, cardiomyopathy. Her primary recreation director is Dr. Shabazz. She has had the following studies/procedures: 1. Echo 05/06/2021: Mildly reduced LV systolic function. EF 45-50%. Global hypokinesis. Mild left atrial dilation. Moderate MR. RVSP 40-50. She was admitted on 07/23/2021 with acute hypoxemic respiratory failure, requiring BiPAP. she was diagnosed with CHF exacerbation and severe COVID-19 pneumonia. She was placed on Decadron, remdesivir, and received 1 dose of intravenous Lasix, 20 mg at 4:48 a.m.. Since presentation, she feels much better and has been weaned to 2 L of supplemental oxygen via nasal cannula. Unfortunately, her I&Os are not calculated. She states that her shortness of breath occurred acutely on 07/22/2021 and she was short of breath at rest, with exertion, and while laying supine. She had no chest pain, fever, palpitations, syncope, near-syncope, edema, or bleeding such as melena, hematochezia, or hematuria. While here, she has been seen by Nephrology with recommendations pending at the time of this note. She has been seen by pulmonology. Infectious disease and Hematology/Oncology have also been consulted. Review of systems: As above. Review of systems otherwise neg ative/unremarkable. Family history: Noncontributory. Social history: Quit smoking years ago. Consumes approximately 3 beers per day. She lives alone. She has children that live out of state. She was alone in her hospital room. Allergies Allergy/AdvReac Type Severity Reaction Status Date / Time doxorubicin Allergy Severe Verified 07/23/21 06:22 ENVIRONMENTAL Allergy Severe IF EXPOSED Uncoded 07/23/21 06:22 TOO LONG--THROAT CLOSES Home Medications Medication Instructions Recorded Confirmed Type cyclosporine 0.05 % eye drops in a 1 drp OPHTHALMIC (EYE) Q12H 08/18/18 07/23/21 History dropperette (Restasis) ergocalciferol (vitamin D2) 1,250 50,000 unit PO .Q2WKS 08/18/18 07/23/21 History mcg (50,000 unit) capsule (Vitamin D2) ascorbic acid (vitamin C) 1,000 mg 1 g PO QAM 09/22/19 07/23/21 History tablet (Vitamin C) atorvastatin 10 mg tablet (Lipitor) 10 mg PO HS 09/22/19 07/23/21 History denosumab 60 mg/mL subcutaneous 60 mg SUBCUT .Q6MO 09/22/19 07/23/21 History syringe (Prolia) losartan 100 mg tablet (Cozaar) 100 mg PO QAM 09/22/19 07/23/21 History magnesium oxide 400 mg PO HS 05/14/21 07/23/21 History pantoprazole 40 mg tablet,delayed 40 mg PO BID 06/11/21 07/23/21 History release Melatonin-Chamomile 3-500mg-Mcg 1 tab PO HS 07/23/21 07/23/21 History Tablets bismuth subsalicylate 262 mg 2 tab PO UD 07/23/21 07/23/21 History chewable tablet carvedilol 3.125 mg tablet 3.125 mg PO BID 07/23/21 07/23/21 History cyanocobalamin (vitamin B-12) 500 500 mcg PO DAILY 07/23/21 07/23/21 History mcg tablet (Vitamin B-12) docusate sodium 100 mg capsule 100 mg PO BID 07/23/21 07/23/21 History (Colace) mirtazapine 15 mg tablet 7.5 mg PO HS 07/23/21 07/23/21 History potassium chloride 10 mEq 10 meq PO DAILY 07/23/21 07/23/21 History capsule,extended release Patient History Medical History Arthritis Chronic back pain Chronic pulmonary embolism Constipation Degenerative disc disease Electrolyte and fluid disorder History of breast cancer Rt - 17 years ago - S/p Rt mastectomy, chemo + radiation, Lt - 2018 - s/p lumpectomy x 2, raidation History of depression History of gastric ulcer History of kidney stones History of uterine fibroid Hypertension Limb alert care status RUE Malignant neoplasm of central portion of left breast in female, estrogen receptor negative 2017 Osteoarthritis Osteoporosis Ovarian cancer Spinal stenosis 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 followed with physical therapy. Valvular heart disease follows with [facility] Cardiology Dr Shabazz; moderate MR, mild global hypokinesis LV, RVSP 40-50mmHg Surgical History H/O knee surgery left knee reconstruction H/O: hysterectomy History of breast biopsy History of foot surgery BL History of lumpectomy of left breast x 2 2019 History of tooth extraction Hx of right mastectomy with lymph node removal 1991 Port-A-Cath in place (06/09/21) Insertion of Access Port with Fluoroscopy(Left) - Amador Archibald DO, FACS 06/09/2021 Status post correction of deviated nasal septum Family History Father Esophageal cancer Social History Smoking Status: Former smoker Years Smoked: 20; Cigarettes Per Day: 2; Second Hand Exposure: No; Do You Dip or Chew Tobacco: No; Tobacco Cessation Education Requested by Patient: No Hx Alcohol Use: Yes Alcohol type: beer Hx Substance Use: No Preferred Language: Bolivian Communication Ability: Effective Model Maker Apprentice Required: No Beliefs That Will Affect Care: Pentecostalism Pentecostalism Beliefs: faith Current Living Situation: Alone and Personal Care Facility Current Living Situation Comment: [address] Other Information That Helps Us Care for You: No Feels Safe at Home: Yes Assistive Devices: Glasses Physical Exam Physical Exam: Gen.: No acute distress. Alert and oriented. HEENT: Anicteric sclera. Neck: No JVD. No hepatic jugular reflux. No bruits. Normal carotid upstrokes bilaterally. Cardiac: PMI was nondisplaced. No ventricular heave. Regular. Normal S1-S2. No murmurs, rubs, or gallops. Pulmonary: Bibasilar crackles, otherwise clear to auscultation bilaterally. Abdomen: Soft, nontender, nondistended, with normoactive bowel sounds. No bruits noted. Extremities: 2+ radial pulses bilaterally. 2+ posterior tibialis pulses bilaterally. No edema or cyanosis. Psychiatric: Affect appears appropriate. Results & Data ([facility]) Vital Signs (Past 12 Hours) Vital Signs Temp Pulse Pulse Resp BP BP BP 07/23/21 16:41 36.5 C 81 17 111/56 L 07/23/21 12:11 36.7 C 89 19 149/77 H 07/23/21 09:04 36.5 C 96 H 18 159/78 H 07/23/21 09:00 36.5 C 96 H 18 159/78 H 07/23/21 07:30 83 20 120/70 07/23/21 07:14 83 24 07/23/21 07:00 77 20 141/89 H 07/23/21 06:26 93 H 152/102 H Pulse Ox 05/11/22 16:41 95 07/23/21 12:11 100 07/23/21 09:04 96 07/23/21 09:00 96 07/23/21 07:30 100 07/23/21 07:14 100 07/23/21 07:00 100 07/23/21 06:26 Laboratory Results Laboratory Results - last 24 hr 07/23/21 07/23/21 07/23/21 03:37 03:37 03:37 WBC 0.64 L* RBC 2.58 L Hgb 8.3 L Hct 24.3 L MCV 94.2 MCH 32.2 MCHC 34.2 RDW Std Deviation 47.7 H RDW Coeff of Cain 14.2 Plt Count 228 MPV 9.4 Immature Gran % (Auto) 0.0 Neut % (Auto) 0.0 Lymph % (Auto) 65.6 [place] % (Auto) 34.4 Eos % (Auto) 0.0 Baso % (Auto) 0.0 Reticulocyte % (Auto) Neut # (Auto) 0.00 L* Lymph # (Auto) 0.42 L [place] # (Auto) 0.22 Eos # (Auto) 0.00 Baso # (Auto) 0.00 Reticulocyte # Immature Gran # (Auto) 0.00 Giant Platelets 2+ Peripher Smr Path Cons APTT PTT Ratio VBG pH VBG pCO2 VBG pO2 VBG HCO3 VBG O2 Saturation VBG Base Excess Sodium 123 L Potassium 3.7 Chloride 91 L Carbon Dioxide 21 Anion Gap 11 BUN 12 Creatinine 0.44 L Est Cr Clr Drug Dosing Not Reportable Est GFR ( Amer) 116.1 Est GFR (Non-Af Amer) 100.1 BUN/Creatinine Ratio 27.3 H Glucose 181 H POC Glucose Estimat Average Glucose Hemoglobin A1c Osmolality Calcium 8.3 L Magnesium 0.9 L* Iron Transferrin Ferritin Total Bilirubin 0.6 AST 60 H ALT 45 Alkaline Phosphatase 65 Troponin I High Sens 25.2 H C-Reactive Protein B-Natriuretic Peptide Total Protein 6.3 Albumin 3.6 Globulin 2.7 Albumin/Globulin Ratio 1.3 Vitamin B12 Folate Procalcitonin TSH Free T4 Urine Color Urine Appearance Urine pH Ur Specific [place] Urine Protein Urine Glucose (UA) Urine Ketones Urine Blood Urine Nitrite Urine Bilirubin Urine Urobilinogen Ur Leukocyte Esterase Urine WBC (Auto) Urine RBC (Auto) U Hyaline Cast (Auto) U Epithel Cells (Auto) Urine Bacteria (Auto) Urine Yeast Urine Osmolality Ur Random Sodium Ethyl Alcohol mg/dL SARS-CoV-2 (PCR) Influenza Type A (PCR) Influenza Type B (PCR) RSV (RT-PCR) Blood Type Antibody Screen 07/23/21 07/23/21 07/23/21 03:37 03:37 03:37 WBC RBC Hgb Hct MCV MCH MCHC RDW Std Deviation RDW Coeff of Cain Plt Count MPV Immature Gran % (Auto) Neut % (Auto) Lymph % (Auto) [place] % (Auto) Eos % (Auto) Baso % (Auto) Reticulocyte % (Auto) Neut # (Auto) Lymph # (Auto) [place] # (Auto) Eos # (Auto) Baso # (Auto) Reticulocyte # Immature Gran # (Auto) Giant Platelets Peripher Smr Path Cons APTT 28.0 PTT Ratio 1.0 VBG pH 7.39 VBG pCO2 36 L VBG pO2 40 VBG HCO3 21 VBG O2 Saturation 71.4 VBG Base Excess -3.3 Sodium Potassium Chloride Carbon Dioxide Anion Gap BUN Creatinine Est Cr Clr Drug Dosing Est GFR ( Amer) Est GFR (Non-Af Amer) BUN/Creatinine Ratio Glucose POC Glucose Estimat Average Glucose Hemoglobin A1c Osmolality Calcium Magnesium Iron Transferrin Ferritin Total Bilirubin AST ALT Alkaline Phosphatase Troponin I High Sens C-Reactive Protein B-Natriuretic Peptide 793 H Total Protein Albumin Globulin Albumin/Globulin Ratio Vitamin B12 Folate Procalcitonin TSH Free T4 Urine Color Urine Appearance Urine pH Ur Specific [place] Urine Protein Urine Glucose (UA) Urine Ketones Urine Blood Urine Nitrite Urine Bilirubin Urine Urobilinogen Ur Leukocyte Esterase Urine WBC (Auto) Urine RBC (Auto) U Hyaline Cast (Auto) U Epithel Cells (Auto) Urine Bacteria (Auto) Urine Yeast Urine Osmolality Ur Random Sodium Ethyl Alcohol mg/dL SARS-CoV-2 (PCR) Influenza Type A (PCR) Influenza Type B (PCR) RSV (RT-PCR) Blood Type Antibody Screen 07/23/21 07/23/21 07/23/21 03:37 03:37 03:37 WBC RBC Hgb Hct MCV MCH MCHC RDW Std Deviation RDW Coeff of Cain Plt Count MPV Immature Gran % (Auto) Neut % (Auto) Lymph % (Auto) [place] % (Auto) Eos % (Auto) Baso % (Auto) Reticulocyte % (Auto) Neut # (Auto) Lymph # (Auto) [place] # (Auto) Eos # (Auto) Baso # (Auto) Reticulocyte # Immature Gran # (Auto) Giant Platelets Peripher Smr Path Cons APTT PTT Ratio VBG pH VBG pCO2 VBG pO2 VBG HCO3 VBG O2 Saturation VBG Base Excess Sodium Potassium Chloride Carbon Dioxide Anion Gap BUN Creatinine Est Cr Clr Drug Dosing Est GFR ( Amer) Est GFR (Non-Af Amer) BUN/Creatinine Ratio Glucose POC Glucose Estimat Average Glucose 154 Hemoglobin A1c 7.0 H Osmolality 261 L Calcium Magnesium Iron Transferrin Ferritin Total Bilirubin AST ALT Alkaline Phosphatase Troponin I High Sens C-Reactive Protein B-Natriuretic Peptide Total Protein Albumin Globulin Albumin/Globulin Ratio Vitamin B12 Folate Procalcitonin TSH 6.332 H Free T4 1.13 Urine Color Urine Appearance Urine pH Ur Specific [place] Urine Protein Urine Glucose (UA) Urine Ketones Urine Blood Urine Nitrite Urine Bilirubin Urine Urobilinogen Ur Leukocyte Esterase Urine WBC (Auto) Urine RBC (Auto) U Hyaline Cast (Auto) U Epithel Cells (Auto) Urine Bacteria (Auto) Urine Yeast Urine Osmolality Ur Random Sodium Ethyl Alcohol mg/dL SARS-CoV-2 (PCR) Influenza Type A (PCR) Influenza Type B (PCR) RSV (RT-PCR) Blood Type Antibody Screen 07/23/21 07/23/21 07/23/21 03:49 05:06 05:06 WBC RBC Hgb Hct MCV MCH MCHC RDW Std Deviation RDW Coeff of Cain Plt Count MPV Immature Gran % (Auto) Neut % (Auto) Lymph % (Auto) [place] % (Auto) Eos % (Auto) Baso % (Auto) Reticulocyte % (Auto) Neut # (Auto) Lymph # (Auto) [place] # (Auto) Eos # (Auto) Baso # (Auto) Reticulocyte # Immature Gran # (Auto) Giant Platelets Peripher Smr Path Cons APTT PTT Ratio VBG pH VBG pCO2 VBG pO2 VBG HCO3 VBG O2 Saturation VBG Base Excess Sodium Potassium Chloride Carbon Dioxide Anion Gap BUN Creatinine Est Cr Clr Drug Dosing Est GFR ( Amer) Est GFR (Non-Af Amer) BUN/Creatinine Ratio Glucose POC Glucose Estimat Average Glucose Hemoglobin A1c Osmolality Calcium Magnesium Iron Transferrin Ferritin Total Bilirubin AST ALT Alkaline Phosphatase Troponin I High Sens C-Reactive Protein B-Natriuretic Peptide Total Protein Albumin Globulin Albumin/Globulin Ratio Vitamin B12 Folate Procalcitonin TSH Free T4 Urine Color Yellow Urine Appearance Cloudy A Urine pH 6.5 Ur Specific [place] 1.019 Urine Protein 1+ H Urine Glucose (UA) Negative Urine Ketones Negative Urine Blood Trace H Urine Nitrite Negative Urine Bilirubin Negative Urine Urobilinogen Negative Ur Leukocyte Esterase Negative Urine WBC (Auto) 1-5 Urine RBC (Auto) 0-4 U Hyaline Cast (Auto) 1-5 U Epithel Cells (Auto) >30 H Urine Bacteria (Auto) 4+ H Urine Yeast Not Reportable Urine Osmolality Ur Random Sodium 71 Ethyl Alcohol mg/dL SARS-CoV-2 (PCR) POSITIVE A* Influenza Type A (PCR) Negative Influenza Type B (PCR) Negative RSV (RT-PCR) Negative Blood Type Antibody Screen 07/23/21 07/23/21 07/23/21 05:06 06:03 09:07 WBC RBC Hgb Hct MCV MCH MCHC RDW Std Deviation RDW Coeff of Cain Plt Count MPV Immature Gran % (Auto) Neut % (Auto) Lymph % (Auto) [place] % (Auto) Eos % (Auto) Baso % (Auto) Reticulocyte % (Auto) Neut # (Auto) Lymph # (Auto) [place] # (Auto) Eos # (Auto) Baso # (Auto) Reticulocyte # Immature Gran # (Auto) Giant Platelets Peripher Smr Path Cons APTT PTT Ratio VBG pH VBG pCO2 VBG pO2 VBG HCO3 VBG O2 Saturation VBG Base Excess Sodium Potassium Chloride Carbon Dioxide Anion Gap BUN Creatinine Est Cr Clr Drug Dosing Est GFR ( Amer) Est GFR (Non-Af Amer) BUN/Creatinine Ratio Glucose POC Glucose 142 H 110 H Estimat Average Glucose Hemoglobin A1c Osmolality Calcium Magnesium Iron Transferrin Ferritin Total Bilirubin AST ALT Alkaline Phosphatase Troponin I High Sens C-Reactive Protein B-Natriuretic Peptide Total Protein Albumin Globulin Albumin/Globulin Ratio Vitamin B12 Folate Procalcitonin TSH Free T4 Urine Color Urine Appearance Urine pH Ur Specific [place] Urine Protein Urine Glucose (UA) Urine Ketones Urine Blood Urine Nitrite Urine Bilirubin Urine Urobilinogen Ur Leukocyte Esterase Urine WBC (Auto) Urine RBC (Auto) U Hyaline Cast (Auto) U Epithel Cells (Auto) Urine Bacteria (Auto) Urine Yeast Urine Osmolality 316 L Ur Random Sodium Ethyl Alcohol mg/dL SARS-CoV-2 (PCR) Influenza Type A (PCR) Influenza Type B (PCR) RSV (RT-PCR) Blood Type Antibody Screen 07/23/21 07/23/21 07/23/21 09:36 09:36 09:36 WBC RBC Hgb Hct MCV MCH MCHC RDW Std Deviation RDW Coeff of Cain Plt Count MPV Immature Gran % (Auto) Neut % (Auto) Lymph % (Auto) [place] % (Auto) Eos % (Auto) Baso % (Auto) Reticulocyte % (Auto) 0.5 Neut # (Auto) Lymph # (Auto) [place] # (Auto) Eos # (Auto) Baso # (Auto) Reticulocyte # < 0.02 L Immature Gran # (Auto) Giant Platelets Peripher Smr Path Cons APTT PTT Ratio VBG pH VBG pCO2 VBG pO2 VBG HCO3 VBG O2 Saturation VBG Base Excess Sodium Potassium Chloride Carbon Dioxide Anion Gap BUN Creatinine Est Cr Clr Drug Dosing Est GFR ( Amer) Est GFR (Non-Af Amer) BUN/Creatinine Ratio Glucose POC Glucose Estimat Average Glucose Hemoglobin A1c Osmolality Calcium Magnesium Iron Transferrin Ferritin Total Bilirubin AST ALT Alkaline Phosphatase Troponin I High Sens C-Reactive Protein B-Natriuretic Peptide Total Protein Albumin Globulin Albumin/Globulin Ratio Vitamin B12 Folate 16.59 Procalcitonin TSH Free T4 Urine Color Urine Appearance Urine pH Ur Specific [place] Urine Protein Urine Glucose (UA) Urine Ketones Urine Blood Urine Nitrite Urine Bilirubin Urine Urobilinogen Ur Leukocyte Esterase Urine WBC (Auto) Urine RBC (Auto) U Hyaline Cast (Auto) U Epithel Cells (Auto) Urine Bacteria (Auto) Urine Yeast Urine Osmolality Ur Random Sodium Ethyl Alcohol mg/dL SARS-CoV-2 (PCR) Influenza Type A (PCR) Influenza Type B (PCR) RSV (RT-PCR) Blood Type A Positive Antibody Screen NEGATIVE 07/23/21 07/23/21 07/23/21 09:36 09:36 09:36 WBC RBC Hgb Hct MCV MCH MCHC RDW Std Deviation RDW Coeff of Cain Plt Count MPV Immature Gran % (Auto) Neut % (Auto) Lymph % (Auto) [place] % (Auto) Eos % (Auto) Baso % (Auto) Reticulocyte % (Auto) Neut # (Auto) Lymph # (Auto) [place] # (Auto) Eos # (Auto) Baso # (Auto) Reticulocyte # Immature Gran # (Auto) Giant Platelets Peripher Smr Path Cons APTT PTT Ratio VBG pH VBG pCO2 VBG pO2 VBG HCO3 VBG O2 Saturation VBG Base Excess Sodium Potassium Chloride Carbon Dioxide Anion Gap BUN Creatinine Est Cr Clr Drug Dosing Est GFR ( Amer) Est GFR (Non-Af Amer) BUN/Creatinine Ratio Glucose POC Glucose Estimat Average Glucose Hemoglobin A1c Osmolality Calcium Magnesium Iron 44 Transferrin 238 Ferritin 1394.9 H Total Bilirubin AST ALT Alkaline Phosphatase Troponin I High Sens C-Reactive Protein B-Natriuretic Peptide Total Protein Albumin Globulin Albumin/Globulin Ratio Vitamin B12 848 Folate Procalcitonin TSH Free T4 Urine Color Urine Appearance Urine pH Ur Specific [place] Urine Protein Urine Glucose (UA) Urine Ketones Urine Blood Urine Nitrite Urine Bilirubin Urine Urobilinogen Ur Leukocyte Esterase Urine WBC (Auto) Urine RBC (Auto) U Hyaline Cast (Auto) U Epithel Cells (Auto) Urine Bacteria (Auto) Urine Yeast Urine Osmolality Ur Random Sodium Ethyl Alcohol mg/dL < 10.0 SARS-CoV-2 (PCR) Influenza Type A (PCR) Influenza Type B (PCR) RSV (RT-PCR) Blood Type Antibody Screen 07/23/21 07/23/21 07/23/21 09:36 09:36 12:08 WBC RBC Hgb Hct MCV MCH MCHC RDW Std Deviation RDW Coeff of Cain Plt Count MPV Immature Gran % (Auto) Neut % (Auto) Lymph % (Auto) [place] % (Auto) Eos % (Auto) Baso % (Auto) Reticulocyte % (Auto) Neut # (Auto) Lymph # (Auto) [place] # (Auto) Eos # (Auto) Baso # (Auto) Reticulocyte # Immature Gran # (Auto) Giant Platelets Peripher Smr Path Cons APTT PTT Ratio VBG pH VBG pCO2 VBG pO2 VBG HCO3 VBG O2 Saturation VBG Base Excess Sodium 127 L Potassium Chloride Carbon Dioxide Anion Gap BUN Creatinine Est Cr Clr Drug Dosing Est GFR ( Amer) Est GFR (Non-Af Amer) BUN/Creatinine Ratio Glucose POC Glucose 146 H Estimat Average Glucose Hemoglobin A1c Osmolality Calcium Magnesium Iron Transferrin Ferritin Cancelled Total Bilirubin AST ALT Alkaline Phosphatase Troponin I High Sens C-Reactive Protein 3.12 H B-Natriuretic Peptide Total Protein Albumin Globulin Albumin/Globulin Ratio Vitamin B12 Folate Procalcitonin 0.50 TSH Free T4 Urine Color Urine Appearance Urine pH Ur Specific [place] Urine Protein Urine Glucose (UA) Urine Ketones Urine Blood Urine Nitrite Urine Bilirubin Urine Urobilinogen Ur Leukocyte Esterase Urine WBC (Auto) Urine RBC (Auto) U Hyaline Cast (Auto) U Epithel Cells (Auto) Urine Bacteria (Auto) Urine Yeast Urine Osmolality Ur Random Sodium Ethyl Alcohol mg/dL SARS-CoV-2 (PCR) Influenza Type A (PCR) Influenza Type B (PCR) RSV (RT-PCR) Blood Type Antibody Screen 07/23/21 07/23/21 15:24 16:38 WBC RBC Hgb Hct MCV MCH MCHC RDW Std Deviation RDW Coeff of Cain Plt Count MPV Immature Gran % (Auto) Neut % (Auto) Lymph % (Auto) [place] % (Auto) Eos % (Auto) Baso % (Auto) Reticulocyte % (Auto) Neut # (Auto) Lymph # (Auto) [place] # (Auto) Eos # (Auto) Baso # (Auto) Reticulocyte # Immature Gran # (Auto) Giant Platelets Peripher Smr Path Cons APTT PTT Ratio VBG pH VBG pCO2 VBG pO2 VBG HCO3 VBG O2 Saturation VBG Base Excess Sodium 128 L Potassium Chloride Carbon Dioxide Anion Gap BUN Creatinine Est Cr Clr Drug Dosing Est GFR ( Amer) Est GFR (Non-Af Amer) BUN/Creatinine Ratio Glucose POC Glucose 158 H Estimat Average Glucose Hemoglobin A1c Osmolality Calcium Magnesium Iron Transferrin Ferritin Total Bilirubin AST ALT Alkaline Phosphatase Troponin I High Sens C-Reactive Protein B-Natriuretic Peptide Total Protein Albumin Globulin Albumin/Globulin Ratio Vitamin B12 Folate Procalcitonin TSH Free T4 Urine Color Urine Appearance Urine pH Ur Specific [place] Urine Protein Urine Glucose (UA) Urine Ketones Urine Blood Urine Nitrite Urine Bilirubin Urine Urobilinogen Ur Leukocyte Esterase Urine WBC (Auto) Urine RBC (Auto) U Hyaline Cast (Auto) U Epithel Cells (Auto) Urine Bacteria (Auto) Urine Yeast Urine Osmolality Ur Random Sodium Ethyl Alcohol mg/dL SARS-CoV-2 (PCR) Influenza Type A (PCR) Influenza Type B (PCR) RSV (RT-PCR) Blood Type Antibody Screen Diagnostic Findings Telemetry personally reviewed: Sinus rhythm with brief episodes of nonsustained SVT. Chart reviewed. ECG personally reviewed from 07/23/2021: Sinus tachycardia 103 beats per minute. Possible septal infarct. Anterolateral ST/T-wave abnormality. CTA chest 07/23/2021: Chronic nonocclusive pulmonary emboli per Radiology. No evidence for acute pulmonary emboli. Mild interstitial pulmonary edema with small bilateral pleural effusions. Patchy bibasilar densities. Focal severe stenosis versus possible occlusion within the right proximal subclavian artery, unchanged. Medications Administered Current Inpatient Medications Acetaminophen (Acetaminophen 325 Mg Tab) 650 mg PO Q4H PRN PRN Reason: Pain or Fever Stop: 08/22/21 09:03 Atorvastatin Calcium (Atorvastatin 10 Mg Tab) 10 mg PO QPM CHRISTINE Stop: 08/22/21 20:59 Carvedilol (Carvedilol 6.25 Mg Tab) 6.25 mg PO BID CHRISTINE Stop: 08/22/21 20:59 Dextrose (Dextrose 50% 50 Ml Syringe) 25 - 50 ml IV UD PRN; Protocol PRN Reason: Hypoglycemia Protocol Stop: 08/22/21 05:16 Enoxaparin Sodium (Enoxaparin Inj 40 Mg/0.4 Ml Syr) 40 mg SQ QAM CHRISTINE Stop: 08/22/21 09:14 Last Admin: 07/23/21 11:18 Dose: 40 mg Documented by: Folic Acid (Folic Acid 1 Mg Tab) 1 mg PO QAM CHRISTINE Stop: 08/22/21 09:03 Last Admin: 07/23/21 11:16 Dose: 1 mg Documented by: Glucagon (Glucagon For Inj 1 Mg Vial) 1 mg SQ UD PRN; Protocol PRN Reason: Hypoglycemia Protocol Stop: 08/22/21 05:16 Glucose (Glucose 10 Tabs/Tube) 4 - 8 tabs PO UD PRN; Protocol PRN Reason: Hypoglycemia Protocol Stop: 08/22/21 05:16 Glucose (Glucose 40% Gel 15 Gm Tube) 15 - 30 gm PO UD PRN; Protocol PRN Reason: Hypoglycemia Protocol Stop: 08/22/21 05:16 Dexamethasone 6 mg/ Syringe 1.5 mls @ 1 mls/min IV DAILY CHRISTINE Stop: 08/23/21 08:59 Remdesivir 100 mg/ Sodium (Chloride) 250 mls @ 250 mls/hr IV Q24H CHRISTINE Stop: 07/27/21 12:59 Promethazine HCl 6.25 mg/ (Sodium Chloride) 50.25 mls @ 201 mls/hr IV Q6H PRN PRN Reason: Nausea And Vomiting Stop: 08/22/21 09:03 Insulin Aspart (Insulin Aspart Per Unit) 0 units SC ACHS CHRISTINE Stop: 08/22/21 07:29 Last Admin: 07/23/21 13:07 Dose: 1 units Documented by: Insulin Glargine (Insulin Glargine Solostar 100 Units/Ml 3 Ml Pen) 5 units SC DAILY [facility] Stop: 08/23/21 08:59 Ipratropium Keno (Ipratropium [place]o Neb Soln 0.02% 2.5 Ml Vial) 0.5 mg INH Q4H PRN PRN Reason: Shortness Of Breath Or Wheezing Stop: 08/22/21 05:29 Levalbuterol HCl (Levalbuterol 1.25mg/0.5ml Neb) 1.25 mg INH Q4H PRN PRN Reason: Shortness Of Breath Or Wheezing Stop: 08/22/21 05:29 Lorazepam (Lorazepam 2 Mg/1 Ml Vial) 0.25 mg IV Q4H PRN PRN Reason: Anxiety Stop: 08/22/21 09:03 Losartan Potassium (Losartan Potassium 50 Mg Tab) 100 mg PO QAM [facility] Stop: 08/22/21 09:03 Last Admin: 07/23/21 12:52 Dose: 100 mg Documented by: Melatonin (Melatonin 3 Mg Tab) 3 mg PO HS PRN PRN Reason: Sleep Stop: 08/22/21 09:03 Mirtazapine (Mirtazapine Tab 15 Mg Tab) 7.5 mg PO HS [facility] Stop: 08/22/21 20:59 Miscellaneous (Carbohydrates For Hypoglycemia ) 15 - 30 gm PO UD PRN PRN Reason: Hypoglycemia Protocol Stop: 08/22/21 05:16 Miscellaneous (Order Awaiting Action) 1 ea N/A QS [facility] Stop: 08/22/21 15:59 Last Admin: 07/23/21 15:26 Dose: Not Given Documented by: Multivitamins (Multivitamin Tab) 1 tab PO QAM [facility] Stop: 08/22/21 09:03 Last Admin: 07/23/21 11:16 Dose: 1 tab Documented by: Nitroglycerin (Nitroglycerin Sl 0.4 Mg/Tab Tab) 0.4 mg SL UD PRN PRN Reason: Chest Pain Stop: 08/22/21 09:03 Oxycodone HCl (Oxycodone Hcl Ir 5 Mg Tab (Immediate Release)) 5 mg PO Q4H PRN PRN Reason: Pain Stop: 08/06/21 09:03 Pantoprazole Sodium (Pantoprazole 40 Mg Tab) 40 mg PO BID [facility] Stop: 08/22/21 09:03 Last Admin: 07/23/21 10:45 Dose: 40 mg Documented by: Polyethylene Glycol (Polyethylene (Miralax) 17 Gm Pack) 17 gm PO DAILY PRN PRN Reason: constipation Stop: 08/22/21 09:03 Senna/Docusate Sodium (Docusate Sodium/Senna 50/8.6mg Tab) [facility] Stop: 08/22/21 09:03 Last Admin: 07/23/21 11:18 Dose: Not Given Documented by: Thiamine HCl (Thiamine Hcl 100 Mg Tab) 100 mg PO QAM [facility] Stop: 08/22/21 09:03 Last Admin: 07/23/21 11:16 Dose: 100 mg Documented by: PG Care Time/CCT Total # of Minutes Spent Total Time Spent with Patient: Total time spent is greater than 50% in coordination of care (as documented) at patient's floor/unit and/or counseling patient: Coding Level of Care Code 67351 Initial Inpt Care Lvl 3 Diagnoses Acute hypoxemic respiratory failure J96.01 COVID-19 U07.1 Mitral regurgitation I34.0 Cardiac valve disease etiology: etiology unspecified Nonischemic cardiomyopathy I42.8 Elevated troponin R77.8 Chronic pulmonary embolism I27.82 (1) Mitral regurgitation Cardiac valve disease etiology: etiology unspecified Qualified Code(s): I34.0 - Nonrheumatic mitral (valve) insufficiency
[2021-07-23] MEDS: MELATONIN 3 MG TAB PO PRN (21:53)
[2021-07-23] MEDS: MIRTAZAPINE TAB 15 MG TAB PO SCH (21:53)
[2021-07-23] MEDS: ATORVASTATIN 10 MG TAB PO SCH (21:54)
[2021-07-23] MEDS: carvediloL 6.25 MG TAB PO SCH (21:54)
--- NOTE | 2021-07-24 02:27 | Consultation Report ---
DATE OF SERVICE: 07/23/2021. REASON FOR CONSULTATION: Severe neutropenia, COVID-19 infection. HISTORY OF PRESENT ILLNESS: Ms. Camarillo is a pleasant 75-year-old female with history of recurrent ovarian cancer for which she most recently received cycle #2 of palliative chemotherapy with carboplatin/docetaxel. She presented to the Emergency Room with complaints of worsening shortness of breath. On arrival to the ED, oxygen saturation was noted to be in the 80s. Labs obtained on admission revealed pancytopenia and she was found to have COVID-19 infection. The patient subsequently was placed on Decadron and remdesivir. Imaging studies performed on admission including CTA chest, which was performed today revealed nonocclusive web-like filling defects within the right lower lobar pulmonary artery and right upper lobe segmental pulmonary artery consistent with chronic nonocclusive pulmonary emboli with no evidence of acute pulmonary emboli as well as mild interstitial pulmonary edema with small bilateral pleural effusions. PAST MEDICAL HISTORY: 1. Chronic systolic heart failure. 2. Pulmonary hypertension. 3. Hyperlipidemia. 4. Breast cancer. 5. Ovarian cancer. 6. Prior history of alcohol abuse. PAST SURGICAL HISTORY: 1. Mastectomy. 2. GREYSON/BSO. 3. Knee surgery. MEDICATIONS PRIOR TO ADMISSION: 1. Pantoprazole 40 mg p.o. b.i.d. 2. Carvedilol 6.25 mg p.o. b.i.d. 3. Compazine as needed. 4. Zofran as needed. 5. Losartan 100 mg p.o. every day. 6. Vitamin B12 oral supplementation. 7. Atorvastatin 10 mg p.o. every day. 8. Vitamin D supplementation. 9. Prednisone. ALLERGIES: DOXORUBICIN. SOCIAL HISTORY: The patient is a former smoker. Prior to this, had a [id number] history of smoking. Drinks alcohol and denies any illicit drug use. FAMILY HISTORY: Esophageal cancer in her father. LABORATORY DATA: CBC from 07/23/2021 significant for white count of 0.64, hemoglobin of 8.3, hematocrit of 24.3, platelet count of 228 with differentials revealing neutrophils of 0, lymphocytes of 0.42, and reticulocytes of less than 0.02. Electrolytes significant for sodium of 127, chloride 91, potassium 3.7, carbon dioxide 21, anion gap 11, BUN 12, creatinine 0.44, magnesium 0.9. IMAGING STUDIES: CTA obtained on 07/23/2021. IMPRESSION: 1. Nonocclusive web-like filling defect seen within the right lower lobe pulmonary artery and a right upper lobe segmental pulmonary artery consistent with chronic nonocclusive pulmonary emboli. No evidence for acute pulmonary emboli. 2. Mild interstitial pulmonary edema with small bilateral pleural effusions. 3. Patchy bibasilar densities favor atelectasis. Pneumonia could also have similar appearance. 4. Focal severe stenosis versus possible occlusion within the proximal right subclavian artery. This remains unchanged. IMPRESSION: 1. Pancytopenia. 2. COVID-19 infection. 3. Ovarian cancer, currently on palliative chemotherapy. 4. Chronic PE 75-year-old female with history of BRCA1 gene mutation, who has metastatic ovarian cancer for which she recently received cycle #2 of treatment with docetaxel/carboplatin. Patient was admitted with COVID-19 infection and found to be pancytopenic for which hematology was consulted. Her pancytopenia is most likely multifactorial due to recent chemotherapy and COVID 19 infection. Recommend filgrastim 480 mcg daily for 3 days or until ANC is greater than 1000. Agree with continuing with steroids and remdesivir for COVID-19 infection. Since her platelet count is within normal limits, would recommend continuing with anticoagulation given chronic PE increased risk for recurrent DVT/PE in the setting of COVID-19 infection,ovarian cancer and immobility/hospitalization. PLAN: 1. Recommend starting filgrastim 480 mcg daily for 3 days or until ANC greater than 1000. 2. Agree with anticoagulation given multiple factors that would increase her risk for recurrent clots. 3. Management for COVID-19 infection. Thank you for this consult. Hematology will continue following patient while in the hospital. Please feel free to call if you have any further questions. Job ID: [id number] [facility]
[2021-07-24 06:58] LABS: Albumin Level 3.5 gm/dl (3.4-5.0); BUN Creatinine Ratio 48.6 (10-20); Bilirubin,Total 0.3 mg/dl (0.2-1.0); C Reactive Protein 2.43 mg/dl (0-0.5); Calcium 8.1 mg/dl (8.5-10.1); Creatinine Clr Calc Pharmacy 96.4 ml/min; Est GFR (African American) 122.9 ml/min; Magnesium 2.1 mg/dl (1.7-2.4); Potassium 3.2 mmol/L (3.5-5.1); Total Protein 5.9 gm/dl (6.0-8.3)
--- NOTE | 2021-07-24 07:07 | Electrocardiogram Report ---
Test Reason : Blood Pressure : / mmHG Vent. Rate : 103 BPM Atrial Rate : 103 BPM P-R Int : 132 ms QRS Dur : 136 ms QT Int : 360 ms P-R-T Axes : 051 -43 100 degrees QTc Int : 471 ms Sinus tachycardia Possible Left atrial enlargement Left axis deviation Left bundle branch block Abnormal ECG When compared with ECG of 12-JUN-2021 05:16, Left bundle branch block is now Present Confirmed by Pato Cabral ([id number]) on 07/24/2021 7:06:43 AM Referred By: REFERRED SELF Confirmed By:Pato Cabral
[2021-07-24] MEDS: INSULIN ASPART PER UNIT SC SCH ×4 (08:09→20:50)
[2021-07-24] MEDS: INSULIN GLARGINE SOLOSTAR 100 UNITS/ML 3 ML PEN SC SCH (08:18)
[2021-07-24] MEDS ORDERED: POTASSIUM CHLORIDE CRTAB 20 MEQ TABCR PO STA (08:49)
[2021-07-24] MEDS: ENOXAPARIN INJ 40 MG/0.4 ML SYR SQ SCH (08:51)
[2021-07-24] MEDS: THIAMINE HCL 100 MG TAB PO SCH (08:52)
[2021-07-24] MEDS: carvediloL 6.25 MG TAB PO SCH ×2 (08:52→20:02)
--- NOTE | 2021-07-24 08:52 | Nephrology Progress Note ---
Date of Service July 24, 2021 Assessment & Plan (1) Electrolyte and fluid disorder: Plan: euvolemic hyponatremia, improving with supportive care. goal sNa is 135 for t omorrow AM hypomagnesemia, hypokalemia> -recheck mag daily > ok today >maintain eukalemia >> gave 40 mEq po x 1 and started 20 mEq po daily >no IVF for now and would use lasix PRN only until if possible 24-48 hrs out from IV contrast >>at risk for JUAN w/ IV contrast > hold losartan (given 07/23); renal function at baseline (creatinine 0.4-0.5); lasix PRN only >daily bmp and mag Admission and Anticipated Discharge Date Admission Date: July 23, 2021 Subjective improving strength; pt denies sob, uncontrolled pain, poor po. ongoing dry cough Review of Systems Review of Systems: All systems reviewed & are unremarkable except as noted in Subjective Physical Exam Constitutional: well developed, average body habitus, + frail appearing and cooperative; no acute distress Eyes: EOM intact bilaterally ENMT: Ears: no external ear abnormality Nose: no external nose abnormality Mouth: + dry oral mucous membranes Neck: no nuchal rigidity Respiratory: normal respiratory effort and + cough (dry) Auscultation: + diminished lung sounds Cardiovascular: Rate/Rhythm: regular rhythm Extremities: no edema Gastrointestinal (Abdomen): Inspection/Auscultation: normal bowel sounds Percussion/Palpation: abdomen soft; abdomen nontender Musculoskeletal: Extremities: strength 5/5 throughout (maneuvers easier than expected though still tentative for exam) Skin: no rashes, warm and dry Neurologic: heath, no tremor fluent speech Psychiatric: Orientation: oriented x 3 Affect: + anxious affect Results & Data ([facility]) Vital Signs (Past 12 Hours) Vital Signs Temp Pulse Resp BP Pulse Ox 07/24/21 07:43 36.7 C 79 19 129/72 96 07/24/21 04:01 36.7 C 83 18 149/78 H 95 07/24/21 00:11 36.4 C L 75 20 132/62 98 Laboratory Results 07/23/21 03:37 07/24/21 06:11
[2021-07-24] MEDS: MULTIVITAMIN TAB PO SCH (08:53)
[2021-07-24] MEDS: FOLIC ACID 1 MG TAB PO SCH (08:53)
[2021-07-24] MEDS: PANTOprazole 40 MG TAB PO SCH ×2 (08:54→20:01)
[2021-07-24] MEDS: DOCUSATE SODIUM/SENNA 50/8.6MG TAB PO SCH (08:56)
[2021-07-24] MEDS ORDERED: THIAMINE HCL 100 MG TAB PO SCH (09:00)
[2021-07-24] MEDS: dexAMETHasone 6 MG in SYRINGE 0 ML IV SCH (09:12)
--- NOTE | 2021-07-24 10:22 | Pulmonology Progress Note ---
Date of Service July 24, 2021 Assessment & Plan (1) Acute hypoxemic respiratory failure: Plan: Hypoxemia appears to be improving significantly. Continue weaning nasal cannula with a goal saturation above 90%. Incentive spirometer and flutter valve ordered to promote pulmonary toileting. (2) Acute CHF (congestive heart failure): Plan: Defer diuresis to the primary care team and cardiology team. Heart failure type: unspecified Qualified Code(s): I50.9 - Heart failure, unspecified (3) COVID-19: Plan: Reasonable to continue with Decadron and remdesivir at this time. Suspect more of her symptoms are related to CHF and COVID-19. Not a candidate for baricitinib or tocilizumab. (4) Chronic pulmonary embolism: Plan: I would recommend indefinite anticoagulation given the chronic pulmonary emboli seen and her hypercoagulable state given her malignancy. However, she is pancytopenic at this present time which is likely related to her chemotherapy. Will defer initiation of anticoagulation to her primary team and oncology. I do not think that her acute decompensation is related to chronic PE at present. Plan: Thank you for the consultation please call with questions. Pulmonary will sign off at this time. Admission and Anticipated Discharge Date Admission Date: July 23, 2021 Subjective Patient notes that she is very anxious and wants to go home as soon as possible. She feels that her breathing has improved significantly and that she can continue the same care plan at home. She denies any shortness of breath at this time. She denies chest pain, fevers, chills or night sweats. Upon entering the room, she was laying on her right lateral decubitus side with a nasal cannula in place. She was able to sit up in talk to me without any conversational dyspnea. Review of Systems Review of Systems: All systems reviewed & are unremarkable except as noted in HPI & below Physical Exam Physical Exam: Constitutional: Patient appears to be of their stated age. Patient is in no apparent distress. Patient is well-developed. Eyes: Pupils are equal round and reactive to light. Conjunctivae are normal. Anicteric sclera. Ears nose, mouth and throat: Nasal cannula in place. No obvious deformities. Neck: Trachea is midline. Visual inspection is normal. Respiratory: Mild crackles in lower lobes bilaterally. No wheezing. Cardiovascular: Regular rate and rhythm. No murmurs. No edema. Gastrointestinal: Normal bowel sounds, soft, nontender and nondistended. No hepatosplenomegaly noted. Musculoskeletal: No cyanosis. Patient is able to move all extremities. Skin: No rashes, warm dry and intact. Neurologic: No obvious focal neurological deficits seen. Psychiatric: Alert and oriented x3 with a euthymic affect. Results & Data Results & Data ([facility]) Vital Signs (Past 12 Hours) Vital Signs Temp Pulse Resp BP Pulse Ox Pulse Ox 07/24/21 09:04 96 07/24/21 08:00 96 07/24/21 07:43 36.7 C 79 19 129/72 96 07/24/21 04:01 36.7 C 83 18 149/78 H 95 07/24/21 00:11 36.4 C L 75 20 132/62 98 PG Care Time/CCT Total # of Minutes Spent Total Time Spent with Patient: Total time spent is greater than 50% in coordination of care (as documented) at patient's floor/unit and/or counseling patient: Coding Level of Care Code 88238 Subseq Hosp Care Lvl 2 Diagnoses Acute hypoxemic respiratory failure J96.01 Acute CHF (congestive heart failure) I50.9 Heart failure type: unspecified COVID-19 U07.1 Chronic pulmonary embolism I27.82
[2021-07-24] MEDS: POTASSIUM CHLORIDE CRTAB 20 MEQ TABCR PO SCH (10:34)
[2021-07-24] MEDS: REMDESIVIR 100 MG in SODIUM CHLORIDE 0.9% 230 ML IV SCH (11:50)
[2021-07-24 13:00] LABS: Hematocrit (blood only) 24.3 % (37-47); Hemoglobin 8.2 g/dL (12.0-16.0); Mean Corpuscular Hemoglobin 31.9 pg (25-34); Mean Corpuscular Hgb Conc 33.7 g/dL (32-36); Mean Corpuscular Volume 94.6 fL (80-100); Mean Platelet Volume 9.3 fL (7.4-10.4); Platelet Count 187 K/uL (130-400); RDW Coefficient of Variation 14.4 % (11.5-14.5); RDW Standard Deviation 48.4 fL (36.4-46.3); Red Blood Count 2.57 M/uL (4.2-5.4); White Blood Count 0.51 K/uL (4.8-10.8)
[2021-07-24 13:20] LABS: Lymphocytes # (auto) 0.22 K/uL (1.2-3.4); Lymphocytes % (auto) 43.1 %; Monocytes # (auto) 0.23 K/uL (0.11-0.59); Monocytes % (auto) 45.1 %; Neutrophils # (auto) 0.06 K/uL (1.4-6.5); Neutrophils % (auto) 11.8 %
--- NOTE | 2021-07-24 16:33 | XCELERA ---
[id number] \\[id number]
--- NOTE | 2021-07-24 17:37 | Hospitalist Progress Note ---
Date of Service July 24, 2021 Assessment & Plan (1) Acute hypoxemic respiratory failure: Plan: Multifactorial : Severe COVID-19 pneumonia Mild decompensated heart failure, history systolic dysfunction, underlying pulm hypertension Rule out pulm embolism Valvular heart disease (moderate MR on recent TTE) hypertension, elevated secondary to illness hyperlipidemia, on statin Rx hx BRCA gene mutation (bilateral breast cancer status post surgery, chemoradiation, metastatic ovarian cancer status post surgery ongoing chemotherapy) Acute on chronic anemia, neutropenia likely secondary to chemotherapy Acute on chronic hyponatremia, alcohol abuse possibly contributory Hypomagnesemia prediabetes, hemoglobin A1c of 5.20 February 2021 past tobacco abuse PCU Weaned off BiPAP, currently on 2 L of oxygen Continue Decadron and remdesivir Pulmonary service consulted Monitor LFTs and renal function Retail Support Associate consulted for CHF exacerbation Echo showing EF 45%, moderate mitral regurg Chronic nonocclusive pulmonary embolism Follow-up pulmonary service and hematology/oncology recommending anticoagulation Start Eliquis 10 mg twice daily Profound neutropenia Likely from recent chemotherapy Neutropenic precautions Hematology/oncologist consulted-recommend Neupogen x3 days Monitor CBC Hyponatremia Sodium improved from 04 06-04 12 Certified Activities Director consulted No signs of alcohol withdrawal at this time AWSS, DT precautions replace electrolytes Basal bolus insulin given anticipated hyperglycemia from steroid Rx, ISS BG goal 03 24- 40, update hemoglobin A1c--7.0 DVT prophylaxis. Eliquis Full code plan of care discussed with patient in detail and at length all questions answered she is understanding, agreeable, comfortable with the plan of care Admission and Anticipated Discharge Date Admission Date: July 23, 2021 Subjective Follow-up for acute hypoxia secondary to COVID-19 pneumonia, acute on chronic systolic CHF, etc. Seen resting in bed, sitting up On 2 L of oxygen, not in distress, comfortable States she feels much better overall Breathing is improved, cough is resolved no chest pain, dyspnea, palpitations, dizziness No other symptoms Expressed desire to be discharged either tomorrow or Wednesday, because she cannot get proper sleep hospital Explained to her the complexity of her medical condition at this time and plan of care Patient verbalized understanding and agreement Review of Systems Review of Systems: all noted and negative except for above Physical Exam Physical Exam: General- oriented x 3, not in distress, speaks in sentences with no effort or accessory muscle use Eyes- anicteric Neck- no JVD Lungs- clear BS bilaterally, no rales/wheezes Heart- normal rate, regular rhythm; no murmurs Abdomen- normal bowel sounds, nondistended, soft, nontender Extremities- no pretibial edema, no calf tenderness Neuro- alert, oriented x 3; no gross focal neurologic deficits Skin- warm & dry Results & Data [facility]) Vital Signs (Past 12 Hours) Vital Signs Temp Pulse Pulse Resp BP Pulse Ox Pulse Ox 07/24/21 16:56 36.8 C 86 19 126/76 99 07/24/21 16:35 80 07/24/21 16:00 95 07/24/21 12:00 36.7 C 86 19 128/80 94 07/24/21 09:04 96 07/24/21 08:00 96 07/24/21 07:43 36.7 C 79 19 129/72 96 07/24/21 06:30 84 all noted and reviewed including below
[2021-07-24] MEDS: FILGRASTIM 480 MCG/1.6 ML VIAL SC SCH (17:44)
[2021-07-24] MEDS: MELATONIN 3 MG TAB PO PRN (20:01)
[2021-07-24] MEDS: ATORVASTATIN 10 MG TAB PO SCH (20:02)
[2021-07-24] MEDS: MIRTAZAPINE TAB 15 MG TAB PO SCH (20:02)
[2021-07-24] MEDS: APIXABAN 5 MG TABLET PO SCH (20:42)
[2021-07-25 05:48] LABS: Hematocrit (blood only) 23.5 % (37-47); Mean Corpuscular Hemoglobin 32.5 pg (25-34); Mean Corpuscular Volume 95.5 fL (80-100); Mean Platelet Volume 9.5 fL (7.4-10.4); Platelet Count 158 K/uL (130-400); RDW Coefficient of Variation 14.5 % (11.5-14.5); RDW Standard Deviation 49.6 fL (36.4-46.3); Red Blood Count 2.46 M/uL (4.2-5.4); White Blood Count 2.37 K/uL (4.8-10.8)
[2021-07-25 06:27] LABS: Giant Platelets 1+; Lymphocytes # (auto) 0.84 K/uL (1.2-3.4); Lymphocytes % (auto) 35.4 %; Monocytes # (auto) 0.92 K/uL (0.11-0.59); Monocytes % (auto) 38.8 %; Neutrophils # (auto) 0.61 K/uL (1.4-6.5); Neutrophils % (auto) 25.8 %
[2021-07-25] MEDS: INSULIN ASPART PER UNIT SC SCH ×4 (08:12→20:13)
[2021-07-25] MEDS: INSULIN GLARGINE SOLOSTAR 100 UNITS/ML 3 ML PEN SC SCH (08:13)
[2021-07-25] MEDS: dexAMETHasone 6 MG in SYRINGE 0 ML IV SCH (08:32)
[2021-07-25] MEDS: FILGRASTIM 480 MCG/1.6 ML VIAL SC SCH (08:32)
[2021-07-25] MEDS: POTASSIUM CHLORIDE CRTAB 20 MEQ TABCR PO SCH (08:33)
[2021-07-25] MEDS: THIAMINE HCL 100 MG TAB PO SCH (08:33)
[2021-07-25] MEDS: PANTOprazole 40 MG TAB PO SCH ×2 (08:33→20:09)
[2021-07-25] MEDS: FOLIC ACID 1 MG TAB PO SCH (08:34)
[2021-07-25] MEDS: DOCUSATE SODIUM/SENNA 50/8.6MG TAB PO SCH (08:34)
[2021-07-25] MEDS: MULTIVITAMIN TAB PO SCH (08:34)
[2021-07-25] MEDS: carvediloL 6.25 MG TAB PO SCH (08:35)
[2021-07-25] MEDS: APIXABAN 5 MG TABLET PO SCH ×2 (08:35→20:09)
--- NOTE | 2021-07-25 09:08 | Cardiology Progress Note ---
Date of Service July 25, 2021 Assessment & Plan (1) Acute hypoxemic respiratory failure: (2) Elevated troponin: (3) Nonischemic cardiomyopathy: (4) Mitral regurgitation: (5) COVID-19: (6) Chronic pulmonary embolism: Plan: 1. Acute hypoxemic respiratory failure: I do not believe this was a primary cardiac issue. She has some evidence of mild fluid overload with an elevated BNP and some chest x-ray findings however her left ventricular function had not changed to suggest an acute cardiac cause. It was probably due to fluid overload and she appears to be much improved with initial diuresis. 2. Elevated troponin: Her initial high sensitivity troponin was slightly elevated and the repeat was very similar, this is consistent with a pulmonary presentation and I would not pursue further from a cardiac standpoint. 3. Nonischemic cardiomyopathy: Her left ventricular function is mildly reduced however unchanged recently. I would continue carvedilol and losartan, increasing carvedilol would be reasonable especially given her hypertension. I will make that change. 4. Mitral regurgitation: This remains moderate and there is currently no indication for surgical approach. 5. COVID-19 pneumonia: As per primary service. 6. Chronic pulmonary embolism: As per primary service. Admission and Anticipated Discharge Date Admission Date: July 23, 2021 Subjective This is a 75-year-old woman who has a history of hypertension and breast cancer and a more recent diagnosis of ovarian cancer with peritoneal metastases. She has had a debulking procedure. Her cardiac history is notable for moderate mitral regurgitation on echocardiography on March 14, 2020 where her ejection fraction was 50 to 55%. She also had mild to moderate tricuspid regurgitation and mild concentric left ventricular hypertrophy. A repeat echocardiogram on May 06, 2021 showed borderline left ventricular dysfunction with an ejection fraction felt to be 45 to 50% with moderate mitral regurgitation. She presents now with acute respiratory failure which appears to be due to congestive heart failure however she also presents with COVID-19. An e chocardiogram done July 24, 2021 shows normal left ventricular size with left ventricular dysfunction and ejection fraction of 45 to 50%. She has global hypokinesis and mild concentric left ventricular hypertrophy. She does have severe left atrial dilatation and moderate mitral regurgitation. She does have mild pulmonary hypertension. No change from April 2021. Her troponin was very slightly elevated on presentation at 25 with a repeat 5 hours later of 33. Her chest x-ray suggested mild pulmonary edema although interestingly it was felt to be improved from June 11, 2021. A chest CTA suggested chronic nonocclusive pulmonary emboli and patchy bibasilar densities consistent with pneumonia or atelectasis as well as mild interstitial pulmonary edema and small bilateral pleural effusions. Her BNP was elevated to 793. She was not interviewed today due to her COVID-19 diagnosis. Physical Exam Physical Exam: I did not examine her due to her COVID-19 diagnosis. Results & Data ([facility]) Vital Signs (Past 12 Hours) Vital Signs Temp Pulse Pulse Resp BP Pulse Ox 07/25/21 07:46 36.5 C 84 18 144/81 H 98 07/25/21 03:51 36.5 C 84 18 148/74 H 97 07/24/21 23:15 36.4 C L 88 18 160/82 H 98 07/24/21 23:00 82 Laboratory Results CBC 07/24/21 07/24/21 07/25/21 Range/Units 10:55 12:34 05:15 WBC Cancelled 0.51 L* 2.37 L RBC Cancelled 2.57 L 2.46 L Hgb Cancelled 8.2 L 8.0 L Hct Cancelled 24.3 L 23.5 L Plt Count Cancelled 187 158 Neut # (Auto) Cancelled 0.06 L* 0.61 L* Lymph # (Auto) Cancelled 0.22 L 0.84 L [place] # (Auto) Cancelled 0.23 0.92 H Eos # (Auto) Cancelled 0.00 0.00 Baso # (Auto) Cancelled 0.00 0.00 Intake and Output 07/24/21 07/25/21 07/25/21 22:59 06:59 14:59 Intake Total 300 / 550 Output Total 400 / 850 150 / 850 400 / 400 Balance -100 / -300 -150 / -300 -400 / -400 Intake: Oral 300 / 300 Output: Urine 400 / 850 150 / 850 400 / 400 Other: Weight 54.8 kg PG Care Time/CCT Total # of Minutes Spent Total Time Spent with Patient: Total time spent is greater than 50% in coordination of care (as documented) at patient's floor/unit and/or counseling patient: Coding Level of Care Code 77164 Subseq Hosp Care Lvl 2 Diagnoses Acute hypoxemic respiratory failure J96.01 COVID-19 U07.1 Mitral regurgitation I34.0 Cardiac valve disease etiology: etiology unspecified Nonischemic cardiomyopathy I42.8 Elevated troponin R77.8 Chronic pulmonary embolism I27.82 (1) Mitral regurgitation Cardiac valve disease etiology: etiology unspecified Qualified Code(s): I34.0 - Nonrheumatic mitral (valve) insufficiency
[2021-07-25 09:37] LABS: BUN Creatinine Ratio 35.7 (10-20); Calcium 8.2 mg/dl (8.5-10.1); Creatinine Clr Calc Pharmacy 84.9 ml/min; Est GFR (African American) 117.9 ml/min; Est GFR (Non-African American) 101.7 ml/min; Potassium 3.9 mmol/L (3.5-5.1)
--- NOTE | 2021-07-25 09:56 | Nephrology Progress Note ---
Date of Service July 25, 2021 Assessment & Plan (1) Electrolyte and fluid disorder: Plan: euvolemic hyponatremia, slowly improving with supportive care. renal function at baseline. hypomagnesemia, hypokalemia> -recheck mag and bmp daily >started lasix 20 mg IV daily and increased standing K to 40 mEq daily -Fluid limit 1.5L /day ordered -cont ARB current dose will sign off DISCHARGE RECOMMENDATIONS -d/c on lasix 40 mg daily and K 20 mEq daily -do not resume thiazide at d/c -continue 1.5L daily fluid limit at d/c -recommend PCP check BMP weekly x 3 after d/c > if still w/ hyponatremia, refer to nephrology Admission and Anticipated Discharge Date Admission Date: July 23, 2021 Subjective some L knee pain; feels overall improved; anxious for d/c ; more energy Review of Systems Review of Systems: All systems reviewed & are unremarkable except as noted in Subjective Physical Exam Constitutional: well developed, average body habitus, + frail appearing and cooperative; no acute distress Eyes: EOM intact bilaterally ENMT: Ears: no external ear abnormality Nose: no external nose abnormality Mouth: + dry oral mucous membranes Neck: no nuchal rigidity Respiratory: normal respiratory effort; no cough Auscultation: + diminished lung sounds Cardiovascular: Rate/Rhythm: regular rhythm Extremities: no edema Gastrointestinal (Abdomen): Inspection/Auscultation: normal bowel sounds Percussion/Palpation: abdomen soft; abdomen nontender Musculoskeletal: Extremities: strength 5/5 throughout (maneuvers easier than expected though still tentative for exam) Skin: no rashes, warm and dry Psychiatric: Orientation: oriented x 3 Affect: euthymic affect Results & Data ([facility]) Vital Signs (Past 12 Hours) Vital Signs Temp Pulse Pulse Resp BP Pulse Ox Pulse Ox 07/25/21 09:00 97 07/25/21 08:00 98 07/25/21 07:46 36.5 C 84 18 144/81 H 98 07/25/21 03:51 36.5 C 84 18 148/74 H 97 07/24/21 23:15 36.4 C L 88 18 160/82 H 98 07/24/21 23:00 82 Laboratory Results 07/25/21 05:15 07/25/21 08:00
[2021-07-25] MEDS: REMDESIVIR 100 MG in SODIUM CHLORIDE 0.9% 230 ML IV SCH (11:47)
[2021-07-25] MEDS: FUROSEMIDE INJ 20 MG/2 ML VIAL IV SCH (11:47)
[2021-07-25] MEDS: cephALEXin 500 MG CAP PO SCH ×3 (11:48→23:03)
[2021-07-25] MEDS: HEPARIN 100 UNIT/ML 5ML FLUSH FLUSH PRN (12:57)
--- NOTE | 2021-07-25 16:20 | Hospitalist Progress Note ---
Date of Service July 25, 2021 Assessment & Plan (1) Acute hypoxemic respiratory failure: Plan: Multifactorial : Severe COVID-19 pneumonia Mild decompensated heart failure, history systolic dysfunction, underlying pulm hypertension Rule out pulm embolism Valvular heart disease (moderate MR on recent TTE) hypertension, elevated secondary to illness hyperlipidemia, on statin Rx hx BRCA gene mutation (bilateral breast cancer status post surgery, chemoradiation, metastatic ovarian cancer status post surgery ongoing chemotherapy) Acute on chronic anemia, neutropenia likely secondary to chemotherapy Acute on chronic hyponatremia, alcohol abuse possibly contributory Hypomagnesemia prediabetes, hemoglobin A1c of 5.20 February 2021 past tobacco abuse PCU Weaned off BiPAP, currently on 2 L of oxygen Continue Decadron and remdesivir day #2 Pulmonary service consulted Monitor LFTs and renal function Systems Spec consulted for CHF exacerbation Echo showing EF 45%, moderate mitral regurg Chronic nonocclusive pulmonary embolism Follow-up pulmonary service and hematology/oncology recommending anticoagulation Started Eliquis 10 mg twice daily Profound neutropenia Likely from recent chemotherapy Neutropenic precautions Hematology/oncologist consulted-recommend Neupogen x3 days Has received 2 doses so far ANC improved to 600s Hyponatremia Sodium improved from 04 06-04 12, today 131 [employer] consulted Lasix IV with potassium ordered No signs of alcohol withdrawal at this time AWSS, DT precautions replace electrolytes Basal bolus insulin given anticipated hyperglycemia from steroid Rx, ISS BG goal 03 24- 40, update hemoglobin A1c--7.0 DVT prophylaxis. Eliquis Full code plan of care discussed with patient in detail and at length all questions answered she is understanding, agreeable, comfortable with the plan of care Admission and Anticipated Discharge Date Admission Date: July 23, 2021 Subjective Follow-up for pneumonia, COVID-19, etc. Seen sitting up in bed, comfortable, not in distress On room air States she feels much better overall Breathing is improved, no cough No fevers or chills, chest pain, shortness of breath, palpitations Denies abdominal pain no urinary symptoms Would like to leave today, states staying here is not good for her mental health, she has a cat to take care of etc. Discussed current medical condition and plan of care, discussed risks of leaving AMA including worsening of pneumonia, hypoxia, sepsis, endorgan damage, including Patient verbalized understanding and acceptance of risks involved in leaving AMA After discussion with binder caser, patient requesting to change her room and will stay today Review of Systems Review of Systems: all noted and negative except for above Physical Exam Physical Exam: General- oriented x 3, not in distress, speaks in sentences with no effort or accessory muscle use Eyes- anicteric Neck- no JVD Lungs-diminished but clear breath sounds, no crackles or wheezing bilaterally Heart- normal rate, regular rhythm; no murmurs Abdomen- normal bowel sounds, nondistended, soft, nontender Extremities- no pretibial edema, no calf tenderness Neuro- alert, oriented x 3; no gross focal neurologic deficits Skin- warm & dry Results & Data Results & Data ([facility]) Vital Signs (Past 12 Hours) Vital Signs Temp Pulse Pulse Pulse Pulse Resp Resp 07/25/21 16:00 07/25/21 12:56 36.4 C L 83 20 07/25/21 11:43 80 84 78 20 07/25/21 09:00 07/25/21 08:00 07/25/21 07:46 36.5 C 84 18 Resp Resp BP Pulse Ox Pulse Ox Pulse Ox Pulse Ox 07/25/21 16:00 07/25/21 12:56 119/69 98 07/25/21 11:43 20 18 97 96 98 07/25/21 09:00 07/25/21 08:00 07/25/21 07:46 144/81 H 98 Pulse Ox 07/25/21 16:00 99 07/25/21 12:56 07/25/21 11:43 07/25/21 09:00 97 07/25/21 08:00 98 07/25/21 07:46 all noted and reviewed including below
[2021-07-25] MEDS: ATORVASTATIN 10 MG TAB PO SCH (20:09)
[2021-07-25] MEDS: MELATONIN 3 MG TAB PO PRN (20:10)
[2021-07-25] MEDS: MIRTAZAPINE TAB 15 MG TAB PO SCH (20:11)
[2021-07-25] MEDS: carvediloL 12.5 MG TAB PO SCH (20:14)
[2021-07-26] MEDS: cephALEXin 500 MG CAP PO SCH ×2 (05:09→12:05)
[2021-07-26] MEDS: HEPARIN 100 UNIT/ML 5ML FLUSH FLUSH PRN (06:35)
[2021-07-26 06:55] LABS: Hematocrit (blood only) 23.4 % (37-47); Mean Corpuscular Hemoglobin 32.7 pg (25-34); Mean Corpuscular Hgb Conc 34.2 g/dL (32-36); Mean Corpuscular Volume 95.5 fL (80-100); Mean Platelet Volume 9.3 fL (7.4-10.4); Platelet Count 124 K/uL (130-400); RDW Standard Deviation 50.9 fL (36.4-46.3); Red Blood Count 2.45 M/uL (4.2-5.4); White Blood Count 8.07 K/uL (4.8-10.8)
[2021-07-26 07:36] LABS: BUN Creatinine Ratio 44.7 (10-20); Calcium 8.2 mg/dl (8.5-10.1); Creatinine Clr Calc Pharmacy 71.2 ml/min; Est GFR (African American) 113.6 ml/min; Magnesium 1.3 mg/dl (1.7-2.4); Potassium 3.1 mmol/L (3.5-5.1)
[2021-07-26 07:48] LABS: ANC (manual) 5.95 K/uL (1.4-6.5); Dohle Bodies 1+; Lymphocytes % (manual) 14.9 %; Monocytes # (manual) 0.92 K/uL (0.11-0.59); Monocytes % (manual) 11.4 %; Neutrophils # (manual) 5.95 K/uL (1.4-6.5); Neutrophils % (manual) 73.7 %; Toxic Granulation 1+
[2021-07-26] MEDS: dexAMETHasone 6 MG in SYRINGE 0 ML IV SCH (08:04)
[2021-07-26] MEDS: PANTOprazole 40 MG TAB PO SCH (08:05)
[2021-07-26] MEDS: POTASSIUM CHLORIDE CRTAB 20 MEQ TABCR PO SCH ×2 (08:05→09:06)
[2021-07-26] MEDS: DOCUSATE SODIUM/SENNA 50/8.6MG TAB PO SCH (08:05)
[2021-07-26] MEDS: THIAMINE HCL 100 MG TAB PO SCH (08:05)
[2021-07-26] MEDS: APIXABAN 5 MG TABLET PO SCH (08:05)
[2021-07-26] MEDS: MULTIVITAMIN TAB PO SCH (08:05)
[2021-07-26] MEDS: FOLIC ACID 1 MG TAB PO SCH (08:05)
[2021-07-26] MEDS: FUROSEMIDE INJ 20 MG/2 ML VIAL IV SCH (08:10)
[2021-07-26] MEDS: INSULIN ASPART PER UNIT SC SCH ×2 (08:16→12:11)
[2021-07-26] MEDS: INSULIN GLARGINE SOLOSTAR 100 UNITS/ML 3 ML PEN SC SCH (08:17)
[2021-07-26] MEDS ORDERED: POTASSIUM CHLORIDE CRTAB 20 MEQ TABCR PO STA (08:52)
[2021-07-26] MEDS ORDERED: MAGNESIUM OXIDE 400 MG TAB PO SCH (09:00)
[2021-07-26] MEDS: carvediloL 12.5 MG TAB PO SCH (09:07)
[2021-07-26] MEDS: FILGRASTIM 480 MCG/1.6 ML VIAL SC SCH (09:08)
[2021-07-26] MEDS: REMDESIVIR 100 MG in SODIUM CHLORIDE 0.9% 230 ML IV SCH (12:08)
--- NOTE | 2021-07-26 13:06 | Hospitalist Progress Note ---
Date of Service July 26, 2021 Assessment & Plan (1) Acute hypoxemic respiratory failure: Plan: Multifactorial : Severe COVID-19 pneumonia Mild decompensated heart failure, history systolic dysfunction, underlying pulm hypertension Rule out pulm embolism Valvular heart disease (moderate MR on recent TTE) hypertension, elevated secondary to illness hyperlipidemia, on statin Rx hx BRCA gene mutation (bilateral breast cancer status post surgery, chemoradiation, metastatic ovarian cancer status post surgery ongoing chemotherapy) Acute on chronic anemia, neutropenia likely secondary to chemotherapy Acute on chronic hyponatremia, alcohol abuse possibly contributory Hypomagnesemia prediabetes, hemoglobin A1c of 5.20 February 2021 past tobacco abuse PCU Weaned off BiPAP, currently on room air given 4 days of Decadron and remdesivir Pulmonary service consulted Monitor LFTs and renal function as outpatient [place] consulted for CHF exacerbation Echo showing EF 45%, moderate mitral regurgitation Chronic nonocclusive pulmonary embolism Follow-up pulmonary service and hematology/oncology recommending anticoagulation Started Eliquis 10 mg twice daily x 7 days, then 5mg daily Profound neutropenia Likely from recent chemotherapy Neutropenic precautions Hematology/oncologist consulted-recommend Neupogen x3 days Has received 2 doses so far ANC improved to 1200 repeat CBC as outpatient Hyponatremia Sodium improved from 1 23-1 29, today 131 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 Eliquis Full code plan of care discussed with patient in detail and at length all questions answered she is understanding, agreeable, comfortable with the plan of care Admission and Anticipated Discharge Date Admission Date: July 23, 2021 Subjective ff up for covid pneumonia, etc seen sitting up in chair, comfortable having lunch states she feels much better overall no cough no chest pain, dyspnea, palpitations, dizziness no other symptoms states she is ready and very adamant to go home today explained to patient that I would like to observe her in the hospital further due to her covid pneumonia, and UTI in the setting of neutropenia but patient as adamant on discharge today advised patient that discharging her is deviating from standard of care, and she might develop worsening pneumonia, sepsis which would need urgent attention patient still prefers to go home (as this would help greatly her mental health as per patient) emphasized that if she develops symptoms including fever, cough, SOB, etc to return to the ER immediately patient verbalized understanding and agreement Review of Systems Review of Systems: all noted and negative except for above Physical Exam Physical Exam: General- oriented x 3, not in distress, speaks in sentences with no effort or accessory muscle use Eyes- anicteric Neck- no JVD Lungs- clear breath sounds bilaterally, no rales/wheezes Heart- normal rate, regular rhythm; no murmurs Abdomen- normal bowel sounds, nondistended, soft, nontender Extremities- no pretibial edema, no calf tenderness Neuro- alert, oriented x 3; no gross focal neurologic deficits Skin- warm & dry Results & Data [facility] & [facility] ([facility]) Vital Signs (Past 12 Hours) Vital Signs Temp Pulse Resp BP BP Pulse Ox 07/26/21 12:29 36.7 C 83 18 157/89 H 159/78 H 99 07/26/21 11:38 36.7 C 83 18 157/89 H 99 07/26/21 07:53 36.2 C L 90 20 171/82 H 96 07/26/21 05:07 36.8 C 79 16 143/77 H 96 07/26/21 03:19 36.5 C 76 18 151/74 H 97 all noted and reviewed including below
--- NOTE | 2021-07-30 11:52 | Discharge Summary ---
Date of Service July 30, 2021 Admission HPI Per Admitting Provider History obtained from patient and records. Medical history significant for chronic systolic heart failure (EF 45 to 50%, TTE 2021), moderate MR, pulmonary hypertension, hypertension, hyperlipidemia, BRCA gene mutation, bilateral breast cancer status post surgery, chemoradiation, metastatic ovarian cancer status post surgery ongoing chemotherapy, chronic anemia (baseline hemoglobin 10-11), chronic hyponatremia, prediabetes, alcohol abuse as per records, past tobacco abuse. Last confinement May 2021 for hypersensitivity reaction to Doxorubicin. Patient noted worsening shortness of breath especially on exertion yesterday. No chest pain, no unusual cough symptoms. No fever, no chills. No fluid retention as per patient. Not sure about recent COVID-19 contacts. Patient received COVID-19 vaccination. Patient called EMS last night with worsening shortness of breath. Patient noted to be tachycardic, hypoxemic O2 sats 80s on room air. Nitropaste and neb treatment administered by EMS. Patient placed on the BiPAP. Patient brought to the ER for evaluation. 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 Admission Exam Per Admitting Provider GENERAL: Slightly uncomfortable, slightly anxious, minimal respiratory distress SKIN: Pallor , warm HEENT: Pale palpebral conjunctivae, no ptosis, dry buccal mucosa, BiPAP in place NECK : Supple, no tenderness CHEST : Decreased breath sounds, no tenderness HEART : RRR, no obvious murmurs ABDOMEN: Some distention, nontender EXTREMITIES : No LE swelling/tenderness, no other conspicuous deformities noted NEUROLOGIC : Coherent, no facial asymmetry, no other gross focality Principal Diagnosis ACUTE HYPOXIC RESPIRATORY FAILURE COVID 19 PNEUMONIA ACUTE ON CHRONIC CONGESTIVE HEART FAILURE Discharge Exam General- oriented x 3, not in distress, speaks in sentences with no effort or accessory muscle use Eyes- anicteric Neck- no JVD Lungs- clear breath sounds bilaterally, no rales/wheezes Heart- normal rate, regular rhythm; no murmurs Abdomen- normal bowel sounds, nondistended, soft, nontender Extremities- no pretibial edema, no calf tenderness Neuro- alert, oriented x 3; no gross focal neurologic deficits Skin- warm & dry Discharge Data Allergies Allergy/AdvReac Type Severity Reaction Status Date / Time doxorubicin Allergy Severe . Verified 07/25/21 09:59 Consultations 07/23/21 04:23 ED Decision to Admit Stat 07/23/21 07:53 Consult Infectious Diseases Routine Consult Oncology Routine 07/23/21 07:58 Consult Pulmonology Routine 07/23/21 09:04 Consult Nephrology Routine 07/23/21 11:56 Consult Cardiology Routine Ordered Studies 07/23/21 04:24 CT angio chest PE protocol Urgent CHEST CTA for PULMONARY ARTERIES CT DOSE: 223.85 mGy.cm HISTORY: Hypoxia. Shortness of breath. TECHNIQUE: Multiaxial CT images of the chest were performed following the intravenous administration of contrast to evaluate the pulmonary arteries. Maximal intensity projection images were also obtained. A dose lowering technique was utilized adhering to the principles of ALARA. COMPARISON STUDY: Chest CTA 06/11/2021. FINDINGS: Limited views of the upper abdomen demonstrate normal liver and spleen. Partially visualized nodular thickening of the left adrenal gland is again noted. Normal right adrenal gland. Normal esophagus. The thyroid gland enhances normally. Prior right mastectomy with right axillary lymph node dissection. No significant mediastinal or hilar lymphadenopathy. Focal severe stenosis within the proximal right subclavian artery versus possible occlusion. This remains unchanged. Normal caliber thoracic aorta with no evidence for dissection. Moderate calcified plaque within the coronary arteries. The heart remains enlarged. There are small bilateral pleural effusions which have slightly improved. Motion artifact within the bilateral lower lobe subsegmental pulmonary arteries resulting in suboptimal evaluation. A few small nonocclusive weblike filling defects seen within the right lower lobar pulmonary artery and a segmental branch of the right upper lobe consistent with nonocclusive chronic pulmonary emboli. No additional filling defects identified within the pulmonary arteries to suggest an acute pulmonary embolus. Left jugular Port-A-Cath terminates in the SVC. No suspicious lytic or blastic osseous lesions. Right apical scarlike densities remain unchanged. No pneumothorax. Mild interlobular septal thickening with groundglass densities within the upper to mid lung zones consistent with mild pulmonary edema. There are patchy bibasilar airspace opacities which are nonspecific and could represent atelectasis or less likely a pneumonia. No suspicious pulmonary nodules identified. IMPRESSION: 1. Nonocclusive weblike filling defects seen within the right lower lobar pulmonary artery and a right upper lobe segmental pulmonary artery consistent wi th chronic nonocclusive pulmonary emboli. No evidence for acute pulmonary emboli. 2. Mild interstitial pulmonary edema with small bilateral pleural effusions. 3. Patchy bibasilar densities favor atelectasis. A pneumonia could also have a similar appearance. 4. Focal severe stenosis versus possible occlusion within the proximal right subclavian artery. This remains unchanged. 5. Additional findings as described above. ACT 112: Negative or not required by law. Electronically signed by: Matt Umanzor M.D. 07/23/2021 7:25 AM Hospital Course (1) Acute hypoxemic respiratory failure: Multifactorial : Severe COVID-19 pneumonia Mild decompensated heart failure, history systolic dysfunction, underlying pulm hypertension Valvular heart disease (moderate MR on recent TTE) hypertension, elevated secondary to illness hyperlipidemia, on statin Rx hx BRCA gene mutation (bilateral breast cancer status post surgery, chemor adiation, metastatic ovarian cancer status post surgery ongoing chemotherapy) Acute on chronic anemia, neutropenia likely secondary to chemotherapy Acute on chronic hyponatremia, alcohol abuse possibly contributory Hypomagnesemia prediabetes, hemoglobin A1c of 5.20 February 2021 past tobacco abuse Weaned off BiPAP, currently on room air given 4 days of Decadron and remdesivir Pulmonary service consulted patient adamantly requesting to go home, explained a few more days of observation is recommended risks of going home discussed with patient in detail and at length she verbalized understanding and agreement of risks involved including worsening medical condition, Monitor LFTs and renal function as outpatient Orientation & Mobility Specialist consulted for CHF exacerbation Echo showing EF 45%, moderate mitral regurgitation Carvedilol increased to 12.5mg BID does not recommend Lasix on discharge Chronic nonocclusive pulmonary embolism in the setting of Underlying Cancer pulmonary service and hematology/oncology recommending anticoagulation Started Eliquis 10 mg twice daily x 7 days, then 5mg daily Profound neutropenia Likely from recent chemotherapy Hematology/oncologist consulted Dr. Slater-recommend Neupogen x3 days Has received 2 doses so far ANC improved to 1200 repeat CBC as outpatient UTI, Klebsiella pansensitive continue Cephalexin PO Hyponatremia Sodium improved from 1 23-1 29, on discharge 131 Customer Relations Specialist consulted Lasix IV with potassium ordered No signs of alcohol withdrawal noted AWSS, DT precautions ordered discharge to home ff up with PCP in 1 week ff up with Oncologist as scheduled plan of care discussed with patient in detail and at length all questions answered she is understanding, agreeable, comfortable with the plan of care Total Time Total Time Spent Total Time Spent (In Minutes): > 30 minutes Discharge Plan Discharge Items Patient Disposition: Home - Self-Care Reason For Visit: RESP FAILURE Discharge Diagnosis: COVID-19 pneumonia Mild acute congestive heart failure exacerbation Urinary tract infection Profound neutropenia or low white blood cell count Activity: As commented below Activity Comment: Gradually increase as tolerated, no heavy exertion Driving/Machine Use: No driving until reevaluated and allowed by primary care physician Non-emergency contact: Primary Care Provider Call non-emergency contact if: you have any medication questions, your symptoms worsen, your pain is not controlled, your pain is worsening, your pain is unusual for you, your pain is concerning for you and you have a fever Follow-up/Referrals: Rachel Centeno MD [Primary Care Provider] - (Date & Time 08/05/2021 11:00 AM Provider Rachel Centeno MD Department General Internal Medicine [facility] ) Nathalie Slater MD [Physician] - Diet: Heart Healthy Addtl Attending Provider Instructions: PLEASE REFER TO YOUR NEW MEDICATION LIST AND FOLLOW INSTRUCTIONS CAREFULLY. YOUR NEW MEDICATIONS INCLUDE: Eliquis-blood thinner to prevent blood clots 10 mg twice a day for 5 days, then 5 mg twice a day indefinitely Cephalexin-antibiotic to treat UTI Additional potassium and magnesium supplements to be taken for 5 days Increase Coreg to 12.5 mg twice a day PLEASE CALL YOUR PRIMARY CARE PHYSICIAN OR RETURN TO THE ER IF WITH WORSENING OF SYMPTOMS, INCLUDING Shortness of breath, cough, fevers or chills, chest pain, abdominal pain, problems with urination, nausea or vomiting, weakness. If you sustain any head trauma, even if you feel fine, you need to go to the ER immediately for urgent evaluation including a CT scan of the head. Your white blood cell count is low. Avoid being exposed to sick individuals and always wash hands with soap and water thoroughly to prevent acquiring new infections. FOLLOW UP WITH PRIMARY CARE PHYSICIAN OUTLINED ABOVE. FOLLOW-UP WITH YOUR ONCOLOGIST SCHEDULED. CONTINUE USING INCENTIVE SPIROMETRY AND FLUTTER VALVE AT HOME. YOU STILL NEED TO ISOLATE AT HOME FOR AT LEAST 6 DAYS, AND UNTIL YOUR COUGH RESOLVES Home Isolation COVID-19 Instructions The following information about Home Isolation is from the CDC Website: https://www.cdc.gov/coronavirus/2019-ncov/hcp/mmucwihe-ouaemhr-ytjwyk.html Stay home except to get medical care People who are mildly ill with COVID-19 are able to isolate at home during their illness. You should restrict activities outside your home, except for getting medical care. Do not go to work, school, or public areas. Avoid using public transportation, ride-sharing, or taxis. Separate yourself from other people and animals in your home People: As much as possible, you should stay in a specific room and away from other people in your home. Also, you should use a separate bathroom, if available. Animals: You should restrict contact with pets and other animals while you are sick with COVID-19, just like you would around other people. Although there have not been reports of pets or other animals becoming sick with COVID-19, it is still recommended that people sick with COVID-19 limit contact with animals until more information is known about the virus. When possible, have another mem harmony of your household care for your animals while you are sick. If you are sick with COVID-19, avoid contact with your pet, including petting, snuggling, being kissed or licked, and sharing food. If you must care for your pet or be around animals while you are sick, wash your hands before and after you interact with pets and wear a face mask. Call ahead before visiting your doctor If you have a medical appointment, call the healthcare provider and tell them that you have or may have COVID-19. This will help the healthcare providers office take steps to keep other people from getting infected or exposed. Wear a face mask You should wear a face mask when you are around other people (e.g., sharing a room or vehicle) or pets and before you enter a healthcare providers office. If you are not able to wear a face mask (for example, because it causes trouble breathing), then people who live with you should not stay in the same room with you, or they should wear a face mask if they enter your room. Cover your coughs and sneezes Cover your mouth and nose with a tissue when you cough or sneeze. Throw used tissues in a lined trash can. Immediately wash your hands with soap and water for at least 20 seconds or, if soap and water are not available, clean your hands with an alcohol-based hand parts counter clerk that contains at least 60% alcohol. Clean your hands often Wash your hands often with soap and water for at least 20 seconds, especially after blowing your nose, coughing, or sneezing; going to the bathroom; and before eating or preparing food. If soap and water are not readily available, use an alcohol-based hand parts counter clerk with at least 60% alcohol, covering all surfaces of your hands and rubbing them together until they feel dry. Soap and water are the best option if hands are visibly dirty. Avoid touching your eyes, nose, and mouth with unwashed hands. Avoid sharing personal household items You should not share dishes, drinking glasses, cups, eating utensils, towels, or bedding with other people or pets in your home. After using these items, they should be washed thoroughly with soap and water. Clean all high-touch surfaces everyday High touch surfaces include counters, tabletops, doorknobs, bathroom fixtures, toilets, phones, keyboards, tablets, and bedside tables. Also, clean any surfaces that may have blood, stool, or body fluids on them. Use a household cleaning spray or wipe, according to the label instructions. Labels contain instructions for safe and effective use of the cleaning product including precautions you should take when applying the product, such as wearing gloves and making sure you have good ventilation during use of the product. Monitor your symptoms Seek prompt medical attention if your illness is worsening (e.g., difficulty breathing).Beforeseeking care, call your healthcare provider and tell them that you have, or are being evaluated for, COVID-19. Put on a face mask before you enter the facility. These steps will help the healthcare providers office to keep other people in the office or waiting room from getting infected or exposed. Ask your healthcare provider to call the local or state health department. Persons who are placed under active monitoring or facilitated self- monitoring should follow instructions provided by their local health department or occupational health professionals, as appropriate. When working with your local health department check their available hours. If you have a medical emergency and need to call 911, notify the dispatch personnel that you have, or are being evaluated for COVID-19. If possible, put on a face mask before emergency medical services arrive. Discontinuing home isolation Patients with confirmed COVID-19 should remain under home isolation precautions until the risk of secondary transmission to others is thought to be low. The decision to discontinue home isolation precautions should be made on a [id number] basis, in consultation with healthcare providers and state and local health departments. Pending Studies at Discharge: Yes Studies:: Repeat complete blood count on follow-up with primary care physician next week. Stand-Alone Forms: [facility] Sm[facility] Cessation Medications and DC Order Prescriptions: New cephalexin 500 mg Capsule 500 mg PO Q6 6 Days Qty: 24 RF: 0 Eliquis 5 mg Tablet 10 mg PO BID 5 Days Qty: 20 RF: 0 Eliquis 5 mg tablet 5 mg PO BID 30 Days Qty: 60 RF: 2 carvedilol 12.5 mg Tablet 12.5 mg PO BID 30 Days Qty: 60 RF: 2 potassium chloride 20 mEq Tablet,Er Particles/Crystals 40 meq PO QAM 5 Days Qty: 10 RF: 0 magnesium oxide 400 mg (241.3 mg magnesium) Tablet 400 mg PO BID 5 Days Qty: 10 RF: 0 Continued ergocalciferol (vitamin D2) [Vitamin D2] 50,000 unit Capsule 50,000 unit PO .Q2WKS RF: 0 cyclosporine [Restasis] 0.05 % Dropperette 1 drp OPHTHALMIC (EYE) Q12H RF: 0 ascorbic acid (vitamin C) [Vitamin C] 1,000 mg Tablet 1 g PO QAM RF: 0 atorvastatin [Lipitor] 10 mg tablet 10 mg PO HS RF: 0 losartan [Cozaar] 100 mg tablet 100 mg PO QAM RF: 0 Prolia 60 mg/mL Syringe 60 mg SUBCUT .Q6MO RF: 0 pantoprazole 40 mg tablet,delayed release (DR/EC) 40 mg PO BID RF: 0 cyanocobalamin (vitamin B-12) [Vitamin B-12] 500 mcg Tablet 500 mcg PO DAILY RF: 0 docusate sodium [Colace] 100 mg Capsule 100 mg PO BID RF: 0 mirtazapine 15 mg tablet 7.5 mg PO HS RF: 0 bismuth subsalicylate 262 mg Tablet,Chewable 2 tab PO UD RF: 0 Melatonin-Chamomile 3-500mg-Mcg Tablets 1 tab PO HS RF: 0 potassium chloride 10 mEq capsule, extended release 10 meq PO DAILY Qty: 0 RF: 0 magnesium oxide 400 mg magnesium tablet 400 mg PO HS Qty: 0 RF: 0 Discontinued carvedilol 3.125 mg tablet 3.125 mg PO BID RF: 0 Discharge Orders: Discharge Order (Routine); Ordered 07/26/21 Ordered By: Yan Anderson/Other Patient Handouts: Type 2 Diabetes Admission Data Admit Date/Time: 07/23/21 04:29 Attending Provider: Yan Woods Admit Provider: Amador Elias Primary Care Provider: Rachel Centeno Other Providers: Amador Elias ; Phil Coles ; Fanny Parisi ; Jae Nuno I. ; Derik Currie II ; Celeste Chinchilla ; Gerardo Ledbetter ; Yoel Perez ; Nathalie Slater ; Ramsey Phan ; Pato Cabral Other Interventions: Discharge Summary Assessment (RN) Last Done: 07/26/21 12:29
== END 2021-07-26 16:33 | disposition home or self-care (01) | DRG 177 ==
LOC: ED 03:07 → 2S 04:29
DX: J12.82 Pneumonia due to coronavirus disease 2019; I27.82 Chronic pulmonary embolism; Z87.891 Personal history of nicotine dependence; U07.1 COVID-19; B96.1 Klebsiella pneumoniae [K. pneumoniae] as the cause of diseases classified elsewhere; Z79.899 Other long term (current) drug therapy; E78.5 Hyperlipidemia, unspecified; J96.01 Acute respiratory failure with hypoxia; R73.03 Prediabetes; C56.9 Malignant neoplasm of unspecified ovary; E83.42 Hypomagnesemia; Z92.3 Personal history of irradiation; Z79.52 Long term (current) use of systemic steroids; E87.6 Hypokalemia; I50.23 Acute on chronic systolic (congestive) heart failure; Z86.59 Personal history of other mental and behavioral disorders; Z92.21 Personal history of antineoplastic chemotherapy; E87.1 Hypo-osmolality and hyponatremia; D61.810 Antineoplastic chemotherapy induced pancytopenia; I24.8 Other forms of acute ischemic heart disease; T45.1X5S Adverse effect of antineoplastic and immunosuppressive drugs, sequela; I34.0 Nonrheumatic mitral (valve) insufficiency; Z88.8 Allergy status to other drugs, medicaments and biological substances; K59.00 Constipation, unspecified; Z85.3 Personal history of malignant neoplasm of breast; I42.8 Other cardiomyopathies; I11.0 Hypertensive heart disease with heart failure; I27.20 Pulmonary hypertension, unspecified; C79.9 Secondary malignant neoplasm of unspecified site; N39.0 Urinary tract infection, site not specified; Z91.048 Other nonmedicinal substance allergy status

== ENCOUNTER 2023-01-16 11:04 | Inpatient (IN) ==
--- NOTE | 2023-01-16 11:24 | Emergency Department Note ---
Impression & Plan Fatigue, Dehydration, Hypomagnesemia, Hypokalemia, Confusion ED Provider Note ED Provider Note NAME: KIRSTEN YEE AGE:77 SEX: Female : 1945 ARRIVES VIA: EMS INFORMANT: Patient ED PROVIDER(s): Kamla Jimenez DO CHIEF COMPLAINT: Fatigue HPI: This is a 77-year-old female presents emerged part via EMS due to concern for persistent fatigue and intermittent confusion. Patient with a history of breast and ovarian cancer and does follow with oncology. She states she did see them last week and they are investigating an alternative oral chemotherapeutic agent for her as they felt her symptoms were medication related. Patient denies any recent trauma. Patient is a difficult historian and seems to get confused to chronology of events. PAST MEDICAL HISTORY:See Below PAST SURGICAL HISTORY:See Below FAMILY HISTORY:See Below SOCIAL HISTORY:See Below HOME MEDICATIONS:See Below ALLERGIES:See Below VITALS:See Below PHYSICAL EXAMINATION: GENERAL: alert, well appearing, well nourished, no distress, non-toxic EYE EXAM: normal conjunctiva, PERRL and EOM's grossly intact OROPHARYNX: no exudate, no erythema, lips, buccal mucosa, and tongue normal and mucous membranes are dry NECK: supple, no nuchal rigidity, no adenopathy, non-tender LUNGS: Clear to auscultation. Normal chest wall mechanics, no w/r/r HEART: no murmurs, S1 normal and S2 normal CHEST WALL: Well-healed surgical incisions noted to bilateral breasts ABDOMEN: abdomen soft, non-tender, normo-active bowel sounds, no masses, no rebound or guarding. BACK: Back is symmetrical on inspection and there is no deformity, no midline tenderness, no CVA tenderness. SKIN: no rashes, petechiae, orbruising UPPER EXTREMITIES: upper extremities are grossly normal. FROM, nml pulses b/l. LOWER EXTREMITIES: No pitting edema. FROM, nml pulses b/l. NEURO EXAM: Normal sensorium, cranial nerves II-XII grossly intact, normal speech, no facial droop,nogross weakness of arms, no gross weakness of legs. Gross sensation intact. No ataxia. Vital Signs: reviewed and remarkable Differential Diagnosis: CVA, ICH, brain metastases, dehydration, JUAN, electrolyte abnormality, UTI, pneumonia, medication ADR, dysrhythmia, as well as others were concern MEDICAL DECISION MAKING: This is a 77-year-old female presents emergency department due to various concerns however was a difficult historian and seemed confused. Patient with significant history of malignancy and concern for increased fatigue over the last month which had initially been thought to be related to a side effect of her oral chemotherapeutic agent. Labs drawn and sent, IV established, EKG and chest x-ray performed bedside interpreted by me and patient monitor on telemetry. Patient sent for CT head additionally which did not reveal any acute pathology. Patient noted to have anemia however this appears stable compared to prior. She was noted to have hypomagnesemia and hypokalemia. She was given IV magnesium repletion. She was clinically dehydrated and started on gentle IV fluid rehydration. I did speak with her brother regarding her history as she seemed confused. Given my concern for her ability to care for herself as well as dehydration, electrolyte abnormalities likely from decreased oral intake, and the fact that she lives alone, the case was discussed with the [facility] hospitalist team for additional evaluation and management. UA was pending at that time. Consultation(s): 1500: Discussed with Dr. Steel, [facility] hospitalist team, for additional evaluation and management. ER Treatment Provided: See below 1422: Discussed with joshua Weber's brother. No prior history of confusion. They speak once a week on the phone. Diagnostics Interpreted By Me: -ECG: Normal sinus at 85, leftward axis, normal QRS and QTc, PACs noted, nonspecific ST/T wave changes -Cardiac Monitoring: An order was placed for continuous cardiac monitoring. The monitor shows a rate of 80 with normal sinus rhythm. -Laboratory studies: As stated above and show below. -Imaging studies: X-ray Chest: A single view study of the chest was reviewed and was negative for cardiomegaly, focal infiltrate, effusion, pulmonary edema, or wide mediastinum. 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 followed with physical therapy. History of depression Valvular heart disease follows with [facility] Cardiology Dr Shabazz; moderate MR, mild global hypokinesis LV, RVSP 40-50mmHg Hypertension Malignant neoplasm of central portion of left breast in female, estrogen receptor negative 2016 Surgical History Port-A-Cath in place (06/09/21) Insertion of Access Port with Fluoroscopy(Left) - Amador Archibald DO, FACS 06/09/2021 H/O: hysterectomy H/O knee surgery left knee reconstruction Status post correction of deviated nasal septum History of tooth extraction History of foot surgery BL History of lumpectomy of left breast x 2 2019 Hx of right mastectomy with lymph node removal 1991 History of breast biopsy Family History Father Esophageal cancer Social History Smoking Status: Former smoker Tobacco Type: Cigarettes Second Hand Exposure: No; Do You Dip or Chew Tobacco: No; Hx Alcohol Use: No Hx Substance Use: No Preferred Language: Macedonian Communication Ability: Effective 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 Verified 01/16/23 16:56 Home Meds Home Medications Medication Instructions Recorded Confirmed ergocalciferol (vitamin D2) 1,250 50,000 unit PO .Q2WKS 08/18/18 01/16/23 mcg (50,000 unit) capsule (Vitamin D2) atorvastatin 10 mg tablet (Lipitor) 10 mg PO HS 09/22/19 01/16/23 pantoprazole 40 mg tablet,delayed 40 mg PO BID 06/11/21 01/16/23 release (Protonix) cyanocobalamin (vitamin B-12) 500 500 mcg PO DAILY 07/23/21 10/07/22 mcg tablet (Vitamin B-12) melatonin 5 mg chewable tablet 5 mg PO HS PRN sleep 10/30/21 10/07/22 apixaban 5 mg tablet (Eliquis) 5 mg PO BID 12/05/21 01/16/23 magnesium oxide 400 mg PO DAILY 01/16/23 01/16/23 mirtazapine 15 mg tablet 7.5 mg PO HS 01/16/23 01/16/23 potassium chloride 20 mEq 20 meq PO DAILY 01/16/23 01/16/23 tablet,extended release Previous Rx's Medication Instructions Recorded carvedilol 25 mg tablet 25 mg PO BID #180 tabs 10/07/22 sacubitril 97 mg-valsartan 103 mg 1 tab PO BID #180 tabs 10/07/22 tablet (Entresto) Results & Data (ED) Vital Signs Vital Signs - 24 hr 01/16/23 19:42 01/16/23 20:00 01/16/23 20:23 Temperature Temperature Source Pulse Rate Pulse Rate [Left] 83 82 Respiratory Rate 22 23 Respiratory Effort / Characteristics Non-Labored Spontaneous Respiratory Depth Normal Respiratory Pattern Regular Blood Pressure [Left Arm] 189/99 H 181/94 H Blood Pressure Mean [Left Arm] 129 123 Blood Pressure Position [Left Arm] Pulse Oximetry 90 90 86 L Oxygen Delivery Method Room Air Room Air Room Air Nasal Cannula Oxygen Flow Rate Oxygen Flow Rate - Titration 2 Pulse Oximetry Post Tiitration 96 EWS Level of Consciousness - Last Result EWS Temperature - Last Result EWS Respiratory Rate - Last Result EWS Oxygen Saturation - Last Result EWS Oxygen in Use - Last Result EWS Score EWS Clinical Risk 01/16/23 21:25 01/16/23 22:01 01/16/23 23:00 Temperature Temperature Source Pulse Rate 79 130 H Pulse Rate [Left] 77 Respiratory Rate 17 Respiratory Effort / Characteristics Non-Labored Spontaneous Respiratory Depth Normal Respiratory Pattern Blood Pressure [Left Arm] 185/109 H Blood Pressure Mean [Left Arm] 134 Blood Pressure Position [Left Arm] Pulse Oximetry 95 Oxygen Delivery Method Nasal Cannula Oxygen Flow Rate 2 Oxygen Flow Rate - Titration Pulse Oximetry Post Tiitration EWS Level of Consciousness - Last Result EWS Temperature - Last Result EWS Respiratory Rate - Last Result EWS Oxygen Saturation - Last Result EWS Oxygen in Use - Last Result EWS Score EWS Clinical Risk 01/16/23 23:55 01/17/23 00:05 01/17/23 00:05 Temperature 37.0 C Temperature Source Oral Pulse Rate 74 Pulse Rate [Left] 71 Respiratory Rate 20 Respiratory Effort / Characteristics Respiratory Depth Respiratory Pattern Blood Pressure [Left Arm] 164/87 H Blood Pressure Mean [Left Arm] 112 Blood Pressure Position [Left Arm] Lying Pulse Oximetry 95 Oxygen Delivery Method Nasal Cannula Oxygen Flow Rate 2 2 Oxygen Flow Rate - Titration Pulse Oximetry Post Tiitration EWS Level of Consciousness - Last Result EWS Temperature - Last Result EWS Respiratory Rate - Last Result EWS Oxygen Saturation - Last Result EWS Oxygen in Use - Last Result EWS Score EWS Clinical Risk 01/17/23 00:05 01/17/23 04:16 01/17/23 04:19 Temperature 36.6 C Temperature Source Oral Pulse Rate Pulse Rate [Left] 77 Respiratory Rate 18 Respiratory Effort / Characteristics Respiratory Depth Respiratory Pattern Blood Pressure [Left Arm] 186/90 H Blood Pressure Mean [Left Arm] 122 Blood Pressure Position [Left Arm] Lying Pulse Oximetry 93 Oxygen Delivery Method Nasal Cannula Oxygen Flow Rate 2 Oxygen Flow Rate - Titration Pulse Oximetry Post Tiitration EWS Level of Consciousness - Last Result Spontaneously Alert Spontaneously Alert EWS Temperature - Last Result 37.2 36.6 EWS Respiratory Rate - Last Result 17 18 EWS Oxygen Saturation - Last Result 95 93 EWS Oxygen in Use - Last Result Yes Yes EWS Score 1 2 EWS Clinical Risk Low Risk Low Risk 01/17/23 08:01 01/17/23 11:22 Temperature Temperature Source Pulse Rate 73 Pulse Rate [Left] Respiratory Rate Respiratory Effort / Characteristics Respiratory Depth Normal Respiratory Pattern Regular Blood Pressure [Left Arm] Blood Pressure Mean [Left Arm] Blood Pressure Position [Left Arm] Pulse Oximetry Oxygen Delivery Method Nasal Cannula Oxygen Flow Rate 2 Oxygen Flow Rate - Titration Pulse Oximetry Post Tiitration EWS Level of Consciousness - Last Result EWS Temperature - Last Result EWS Respiratory Rate - Last Result EWS Oxygen Saturation - Last Result EWS Oxygen in Use - Last Result EWS Score EWS Clinical Risk Laboratory Data 01/17/23 04:28 01/17/23 04:28 Lab Results 01/16/23 01/16/23 01/16/23 Range/Units 11:40 15:55 18:26 WBC 4.35 L (4.8-10.8) K/ul RBC 2.53 L (4.20-5.40) M/uL Hgb 9.4 L (12.0-16.0) g/dl Hct 29.0 L (37.0-47.0) % MCV 114.6 H (80.0-100.0) fL MCH 37.2 H (25.0-34.0) pg MCHC 32.4 (32.0-36.0) g/dL RDW Std Deviation 71.7 H (36.4-46.3) fL RDW Coeff of Cain 16.7 H (11.5-14.5) % Plt Count 229 (130-400) K/uL MPV 10.3 (9.4-12.4) fL Immature Gran % (Auto) 0.2 % Neut % (Auto) 77.5 % Lymph % (Auto) 10.3 % Beckham % (Auto) 10.8 % Eos % (Auto) 0.5 % Baso % (Auto) 0.7 % Neut # (Auto) 3.37 (1.40-6.50) K/uL Lymph # (Auto) 0.45 L (1.20-3.40) K/uL Beckham # (Auto) 0.47 (0.11-0.59) K/uL Eos # (Auto) 0.02 (0.00-0.50) K/uL Baso # (Auto) 0.03 (0.00-0.20) K/uL Immature Gran # (Auto) 0.01 (0.01-0.20) K/uL PT 12.7 H (9.0-12.0) Seconds INR 1.2 H (0.9-1.1) Sodium 140 (136-145) mmol/L Potassium 3.6 (3.5-5.1) mmol/L Chloride 104 (98-107) mmol/L Carbon Dioxide 27 (21-32) mmol/L Anion Gap 9 (3-11) BUN 16 (6-23) mg/dl Creatinine 0.44 L (0.6-1.2) mg/dl Est Cr Clr Drug Dosing 84.2 ml/min Est GFR ( Amer) 114.4 ml/min Est GFR (Non-Af Amer) 98.7 ml/min BUN/Creatinine Ratio 36.4 H (10-20) Glucose 130 H (70-99(Fasting)) mg/dl Calcium 9.2 (8.6-10.3) mg/dl Phosphorus (2.5-4.9) mg/dl Magnesium 1.5 L (1.7-2.4) mg/dl Total Bilirubin 1.3 H (0.2-1.0) mg/dl AST 16 (13-39) U/L ALT 14 (7-52) U/L Alkaline Phosphatase 123 H (34-104) U/L Troponin I High Sens 28.6 H 31.7 H (0-14) pg/ml Total Protein 6.6 (6.0-8.3) gm/dl Albumin 3.7 (3.4-5.0) gm/dl Globulin 2.9 (2.5-4.0) gm/dl Albumin/Globulin Ratio 1.3 (0.9-2) Lipase 4 L (11-82) U/L Vitamin B12 1133 H (180-914) pg/ml TSH 2.621 (0.300-4.500) uIu/ml Urine Color Urine Appearance (Clear) Urine pH (4.5-7.5) Ur Specific [place] (1.000-1.030) Urine Protein (Negative) Urine Glucose (UA) (Negative) Urine Ketones (Negative) Urine Blood (Negative) Urine Nitrite (Negative) Urine Bilirubin (Negative) Urine Urobilinogen (Negative) Ur Leukocyte Esterase (Negative) Urine WBC (Auto) (0-5) /hpf Urine RBC (Auto) (0-4) /hpf U Hyaline Cast (Auto) (0-5) /lpf U Epithel Cells (Auto) (0-5) /lpf Urine Bacteria (Auto) (Negative) Nasal Screen MRSA (PCR) (Negative) Adenovirus (PCR) Not Detected (NotDetected) B. pertussis DNA (PCR) Not Detected (NotDetected) B.parapertussis DNA PCR Not Detected (NotDetected) C. pneumoniae DNA (PCR) Not Detected (NotDetected) Coronavirus OC43 (PCR) Not Detected (NotDetected) Coronavirus HKU1 (PCR) Not Detected (NotDetected) Coronavirus 229E (PCR) Not Detected (NotDetected) SARS-CoV-2 (PCR) Not Detected (NotDetected) Coronavirus NL63 (PCR) Not Detected (NotDetected) Human Metapneumovir PCR Not Detected (NotDetected) Influenza Type A (PCR) Not Detected (NotDetected) Influenza Type B (PCR) Not Detected (NotDetected) M. pneumoniae (PCR) Not Detected (NotDetected) Parainfluenza 1 (PCR) Not Detected (NotDetected) Parainfluenza 2 (PCR) Not Detected (NotDetected) Parainfluenza 3 (PCR) Not Detected (NotDetected) Parainfluenza 4 (PCR) Not Detected (NotDetected) RSV (PCR) Not Detected (NotDetected) Entero/Rhino (PCR) Not Detected (NotDetected) 01/16/23 01/17/23 01/17/23 Range/Units Unknown 01:10 EST 04:28 WBC 4.23 L (4.8-10.8) K/ul RBC 2.59 L (4.20-5.40) M/uL Hgb 9.8 L (12.0-16.0) g/dl Hct 29.9 L (37.0-47.0) % MCV 115.4 H (80.0-100.0) fL MCH 37.8 H (25.0-34.0) pg MCHC 32.8 (32.0-36.0) g/dL RDW Std Deviation 71.8 H (36.4-46.3) fL RDW Coeff of Cain 16.8 H (11.5-14.5) % Plt Count 195 (130-400) K/uL MPV 10.7 (9.4-12.4) fL Immature Gran % (Auto) % Neut % (Auto) % Lymph % (Auto) % Beckham % (Auto) % Eos % (Auto) % Baso % (Auto) % Neut # (Auto) (1.40-6.50) K/uL Lymph # (Auto) (1.20-3.40) K/uL Beckham # (Auto) (0.11-0.59) K/uL Eos # (Auto) (0.00-0.50) K/uL Baso # (Auto) (0.00-0.20) K/uL Immature Gran # (Auto) (0.01-0.20) K/uL PT (9.0-12.0) Seconds INR (0.9-1.1) Sodium 138 (136-145) mmol/L Potassium 3.0 L (3.5-5.1) mmol/L Chloride 105 (98-107) mmol/L Carbon Dioxide 23 (21-32) mmol/L Anion Gap 10 (3-11) BUN 17 (6-23) mg/dl Creatinine 0.36 L (0.6-1.2) mg/dl Est Cr Clr Drug Dosing 88.9 ml/min Est GFR ( Amer) 122.3 ml/min Est GFR (Non-Af Amer) 105.5 ml/min BUN/Creatinine Ratio 47.2 H (10-20) Glucose 104 H (70-99(Fasting)) mg/dl Calcium 7.9 L (8.6-10.3) mg/dl Phosphorus 2.9 (2.5-4.9) mg/dl Magnesium 1.5 L (1.7-2.4) mg/dl Total Bilirubin (0.2-1.0) mg/dl AST (13-39) U/L ALT (7-52) U/L Alkaline Phosphatase (34-104) U/L Troponin I High Sens (0-14) pg/ml Total Protein (6.0-8.3) gm/dl Albumin (3.4-5.0) gm/dl Globulin (2.5-4.0) gm/dl Albumin/Globulin Ratio (0.9-2) Lipase (11-82) U/L Vitamin B12 (180-914) pg/ml TSH (0.300-4.500) uIu/ml Urine Color Dark Yellow Urine Appearance Turbid A (Clear) Urine pH 6.5 (4.5-7.5) Ur Specific [place] 1.024 (1.000-1.030) Urine Protein 3+ H (Negative) Urine Glucose (UA) Negative (Negative) Urine Ketones Trace H (Negative) Urine Blood 1+ H (Negative) Urine Nitrite Positive A (Negative) Urine Bilirubin 1+ H (Negative) Urine Urobilinogen Negative (Negative) Ur Leukocyte Esterase 1+ H (Negative) Urine WBC (Auto) >30 H (0-5) /hpf Urine RBC (Auto) 0-4 (0-4) /hpf U Hyaline Cast (Auto) 0 (0-5) /lpf U Epithel Cells (Auto) 5-10 H (0-5) /lpf Urine Bacteria (Auto) 4+ H (Negative) Nasal Screen MRSA (PCR) Negative (Negative) Adenovirus (PCR) (NotDetected) B. pertussis DNA (PCR) (NotDetected) B.parapertussis DNA PCR (NotDetected) C. pneumoniae DNA (PCR) (NotDetected) Coronavirus OC43 (PCR) (NotDetected) Coronavirus HKU1 (PCR) (NotDetected) Coronavirus 229E (PCR) (NotDetected) SARS-CoV-2 (PCR) (NotDetected) Coronavirus NL63 (PCR) (NotDetected) Human Metapneumovir PCR (NotDetected) Influenza Type A (PCR) (NotDetected) Influenza Type B (PCR) (NotDetected) M. pneumoniae (PCR) (NotDetected) Parainfluenza 1 (PCR) (NotDetected) Parainfluenza 2 (PCR) (NotDetected) Parainfluenza 3 (PCR) (NotDetected) Parainfluenza 4 (PCR) (NotDetected) RSV (PCR) (NotDetected) Entero/Rhino (PCR) (NotDetected) Administered Medications Apixaban (Apixaban 5 Mg Tablet) 5 mg PO BID CHRISTINE Stop: 02/15/23 22:14 Last Admin: 01/17/23 09:47 Dose: 5 mg Documented By: Admin: 01/17/23 00:14 Dose: Not Given Documented By: MG Atorvastatin Calcium (Atorvastatin 10 Mg Tab) 10 mg PO HS CHRISTINE Stop: 02/15/23 21:03 Last Admin: 01/16/23 22:24 Dose: 10 mg Documented By: AN Carvedilol (Carvedilol 25 Mg Tab) 25 mg PO BID CHRISTINE Stop: 02/15/23 21:03 Last Admin: 01/17/23 09:46 Dose: 25 mg Documented By: Admin: 01/16/23 22:24 Dose: 25 mg Documented By: AN Magnesium Sulfate 4 gm/ Sodium (Chloride) 1,008 mls @ 125 mls/hr IV .Q8H4M CHRISTINE Stop: 01/17/23 18:03 Last Admin: 01/17/23 12:15 Dose: 125 mls/hr Documented By: DOMENICO Magnesium Oxide (Magnesium Oxide 400 Mg Tab) 400 mg PO DAILY CHRISTINE Stop: 02/16/23 08:59 Last Admin: 01/17/23 09:46 Dose: 400 mg Documented By: DOMENICO Mirtazapine (Mirtazapine Tab 15 Mg Tab) 7.5 mg PO HS CHRISTINE Stop: 02/15/23 21:03 Last Admin: 01/16/23 22:24 Dose: 7.5 mg Documented By: AN Pantoprazole Sodium (Pantoprazole 40 Mg Tab) 40 mg PO BID CHRISTINE Stop: 02/15/23 21:03 Last Admin: 01/17/23 09:46 Dose: 40 mg Documented By: Admin: 01/16/23 22:24 Dose: 40 mg Documented By: AN Potassium Chloride (Potassium Chloride Crtab 20 Meq Tabcr) 20 meq PO DAILY CHRISTINE Stop: 02/16/23 08:59 Last Admin: 01/17/23 09:47 Dose: Not Given Documented By: DOMENICO Sacubitril/Valsartan (Valsartan/Sacubitril 103/97mg Tab) 1 tab PO BID CHRISTINE Stop: 02/15/23 21:03 Last Admin: 01/17/23 09:46 Dose: 1 tab Documented By: Admin: 01/16/23 22:24 Dose: 1 tab Documented By: AN Discontinued Medications Ceftriaxone Sodium (Ceftriaxone Sodium 2000mg/50ml D5w) Confirm Administered Dose 2,000 mg IV .[facility] ONE Stop: 01/16/23 17:16 Last Admin: 01/16/23 17:16 Dose: Not Given Documented By: WIN Ceftriaxone Sodium (Ceftriaxone Sodium 2000mg/50ml D5w) 2,000 mg IV NOW STA Stop: 01/16/23 17:21 Last Admin: 01/16/23 17:22 Dose: 2,000 mg Documented By: WIN Sodium Chloride (Nss) 1,000 mls @ 100 mls/hr IV .Q10H CHRISTINE Stop: 02/15/23 11:29 Last Infusion: 01/17/23 14:04 Dose: Infused Documented By: Admin: 01/17/23 09:49 Dose: 100 mls/hr Documented By: Infusion: 01/17/23 06:23 Dose: Infused Documented By: Admin: 01/16/23 21:23 Dose: 100 mls/hr Documented By: Infusion: 01/16/23 21:23 Dose: Infused Documented By: Admin: 01/16/23 11:40 Dose: 100 mls/hr Documented By: MELINA Magnesium Sulfate/Dextrose (Magnesium Sulfate / D5w) 1 gm in 100 mls @ 100 mls/hr IV NOW STA Stop: 01/16/23 13:44 Last Infusion: 01/16/23 14:14 Dose: Infused Documented By: Admin: 01/16/23 13:02 Dose: 100 mls/hr Documented By: MICAELA Olanzapine (Olanzapine 5 Mg Tablet) 5 mg PO ONE ONE Stop: 01/16/23 19:34 Last Admin: 01/16/23 20:13 Dose: 5 mg Documented By: SHELLY Potassium Chloride (Potassium Chloride Crtab 20 Meq Tabcr) 40 meq PO Q6H CHRISTINE Stop: 01/17/23 15:31 Last Admin: 01/17/23 17:04 Dose: 40 meq Documented By: Admin: 01/17/23 12:15 Dose: 40 meq Documented By: DOMENICO Imaging Data Radiologist's Impression: Chest X-Ray 01/16/23 11:26 XR chest 1V portable CLINICAL HISTORY: confusion TECHNIQUE: Single frontal radiograph of the chest was obtained. Comparison: Comparison is made to chest radiograph 12/23/2022 FINDINGS: A port catheter is seen. Cardiomegaly is noted. The aortic arch is calcified. The lungs are clear. No evidence of pleural effusion or pneumothorax. IMPRESSION: No acute chest disease. Cardiomegaly is noted. ACT 112: Negative or not required by law. Electronically signed by: Cameron Dawson M.D. 01/16/2023 12:[address] 01/16/23 11:26 CT head/brain wo con CLINICAL HISTORY: confusion Technique: Contiguous axial CT images of the head were acquired from the base of the skull to the vertex without intravenous contrast administration. Images were viewed in brain, subdural and bone windows. Automated dose lowering techniques and/or adjustment according to patient size were utilized for this exam. Comparison: None available at the time of this dictation. Findings: Areas of decreased attenuation are present in the periventricular and subcortical white matter bilaterally consistent with small vessel ischemic disease. Generalized cerebral atrophy with commensurate enlargement of the ventricles, sulci, and cisterns is also present. There is no acute intracranial hemorrhage or evidence of acute territorial infarction. No shift of the midline structures, mass effect, or extra-axial abnormalities are shown. Atherosclerotic calcifications are present in the intracranial segments of the internal carotid arteries. Imaged portions of the paranasal sinuses and mastoid air cells are clear. The orbits appear normal. There are no acute fractures of the calvaria or scalp swelling. Impression: No acute intracranial hemorrhage, no evidence of acute territorial infarction or other acute intracranial disease process. ACT 112: Negative or not required by law. Electronically signed by: Cameron Dawson M.D. 01/16/2023 12:28 PM Discharge Plan Visit Data Chief Complaint: Weakness ED Provider: Kamla Jimenez Discharge Problem: Fatigue, Dehydration, Hypomagnesemia, Hypokalemia, Confusion Patient Disposition: Admitted As Inpatient Discharge Instructions Interventions: ED Discharge Assessment Last Done: 01/16/23 21:04
[2023-01-16] MEDS: SODIUM CHLORIDE 0.9% 1,000 ML IV SCH ×2 (11:40→21:23)
--- NOTE | 2023-01-16 12:09 | XRay Report ---
XR chest 1V portable CLINICAL HISTORY: confusion TECHNIQUE: Single frontal radiograph of the chest was obtained. Comparison: Comparison is made to chest radiograph 12/23/2022 FINDINGS: A port catheter is seen. Cardiomegaly is noted. The aortic arch is calcified. The lungs are clear. No evidence of pleural effusion or pneumothorax. IMPRESSION: No acute chest disease. Cardiomegaly is noted. ACT 112: Negative or not required by law. Electronically signed by: Cameron Dawson M.D. 01/16/2023 12:07 PM
[2023-01-16 12:15] LABS: Basophils # (auto) 0.03 K/uL (0.00-0.20); Basophils % (auto) 0.7 %; Eosinophils # (auto) 0.02 K/uL (0.00-0.50); Eosinophils % (auto) 0.5 %; Hemoglobin 9.4 g/dl (12.0-16.0); Immature Granulocytes # (auto) 0.01 K/uL (0.01-0.20); Immature Granulocytes % (auto) 0.2 %; Lymphocytes # (auto) 0.45 K/uL (1.20-3.40); Lymphocytes % (auto) 10.3 %; Mean Corpuscular Hemoglobin 37.2 pg (25.0-34.0); Mean Corpuscular Hgb Conc 32.4 g/dL (32.0-36.0); Mean Corpuscular Volume 114.6 fL (80.0-100.0); Mean Platelet Volume 10.3 fL (9.4-12.4); Monocytes # (auto) 0.47 K/uL (0.11-0.59); Monocytes % (auto) 10.8 %; Neutrophils # (auto) 3.37 K/uL (1.40-6.50); Neutrophils % (auto) 77.5 %; Platelet Count 229 K/uL (130-400); RDW Coefficient of Variation 16.7 % (11.5-14.5); RDW Standard Deviation 71.7 fL (36.4-46.3); Red Blood Count 2.53 M/uL (4.20-5.40); White Blood Count 4.35 K/ul (4.8-10.8)
--- NOTE | 2023-01-16 12:30 | CT Scan Report ---
CT head/brain wo con CLINICAL HISTORY: confusion Technique: Contiguous axial CT images of the head were acquired from the base of the skull to the jony graham without intravenous contrast administration. Images were viewed in brain, subdural and bone [facility]. Automated dose lowering techniques and/or adjustment according to patient size were utilized for this exam. Comparison: None available at the time of this dictation. Findings: Areas of decreased attenuation are present in the periventricular and subcortical white matter bilate rally consistent with small vessel ischemic disease. Generalized cerebral atrophy with commensurate e nlargement of the ventricles, sulci, and cisterns is also present. There is no acute intracranial hem orrhage or evidence of acute territorial infarction. No shift of the midline structures, mass effect, or extra-axial abnormalities are shown. Atherosclerotic calcifications are present in the intracran ial segments of the internal carotid arteries. Imaged portions of the paranasal sinuses and mastoid air cells are clear. The orbits appear normal. There are no acute fractures of the calvaria or scalp swelling. Impression: No acute intracranial hemorrhage, no evidence of acute territorial infarction or other acute intracra nial disease process. ACT 112: Negative or not required by law. Electronically signed by: Cameron Dawson M.D. 01/16/2023 12:28 PM
[2023-01-16 12:31] LABS: Albumin Globulin Ratio 1.3 (0.9-2); Albumin Level 3.7 gm/dl (3.4-5.0); BUN Creatinine Ratio 36.4 (10-20); Bilirubin,Total 1.3 mg/dl (0.2-1.0); Calcium 9.2 mg/dl (8.6-10.3); Creatinine Clr Calc Pharmacy 84.2 ml/min; Est GFR (African American) 114.4 ml/min; Est GFR (Non-African American) 98.7 ml/min; Globulin 2.9 gm/dl (2.5-4.0); Magnesium 1.5 mg/dl (1.7-2.4); Potassium 3.6 mmol/L (3.5-5.1); Total Protein 6.6 gm/dl (6.0-8.3)
[2023-01-16 12:35] LABS: INR 1.2 (0.9-1.1); Prothrombin Time 12.7 Seconds (9.0-12.0); Troponin I High Sensitivity 28.6 pg/ml (0-14)
[2023-01-16] MEDS ORDERED: MAGNESIUM SULFATE / D5W 1 GM/100 ML BAG IV STA (12:45)
[2023-01-16 14:33] LABS: Thyroid Stimulating Hormone 2.621 uIu/ml (0.300-4.500)
[2023-01-16] MEDS ORDERED: ALUMINUM/MAGNESIUM SUSP 30 ML UDC PO PRN (15:28)
[2023-01-16] MEDS ORDERED: NITROGLYCERIN SL 0.4 MG/TAB TAB SL PRN (15:28)
[2023-01-16] MEDS ORDERED: ONDANSETRON INJ 2 MG/ML 2 ML VIAL IV PRN (15:28)
[2023-01-16] MEDS ORDERED: MAGNESIUM HYDROXIDE SUSP 30 ML UDC PO PRN (15:28)
--- NOTE | 2023-01-16 15:45 | History & Physical Report ---
Date of Service January 16, 2023 Assessment & Plan (1) Fatigue: Plan Generalized weakness Possible UTI Likely metabolic encephalopathy Patient presenting with worsening weakness/poor appetite/inability to keep herself awake. Multifactorial in nature given extensive cancer history/chemo and radiation therapy history. Patient complains of burning while passing urine which might be contributing to acute worsening. CXR and CT head with no acute findings. Labs reviewed, fairly WNL given her prior labs. Repleting magnesium. TSH normal, lipase normal, EKG with sinus rhythm. We will get B12/thiamine level/CPK/respiratory viral panel/follow urine analysis. Empiric antibiotic therapy for now. We will also get brain MRI w/ iv con to r/o mets. Patient not confused at baseline per patient's brother, has been lately more confused. Patient taking out the IV lines, one-to-one observation. Delirium precaution. Elevated troponin: Likely demand ischemia secondary to acute illness, will trend troponin. Will get echo. Consider cardiology consult based on echo and troponin trends. Other chronic medical condition: As mentioned in HPI, continue with/resume home meds as and when able. DVT prophylaxis: Patient on Eliquis Full code History of Present Illness Chief Complaint: Weakness, tiredness, lethargy Primary Care Provider: Marilyn West DO 77-year-old lady with PMH of chronic systolic heart failure [May 2022 TTE with EF of 30-35%], pulmonary HTN, HTN, HLD, BRCA gene mutation, bilateral breast cancer status post surgery, chemoradiation, metastatic ovarian cancer status post debulking surgery, radiation and [facility]], chronic anemia [baseline hemoglobin around 10], chronic hyponatremia, prediabetes, alcohol abuse and tobacco abuse presented to the ED today due to worsening weakness, tiredness, not being able to care for self, not being able to stay awake/eyes feeling heavy for several days. Though patient is alert and oriented, history is very hard to obtain and seems not chronological, she digresses a lot. Most of the history taken from chart review, discussion with ER physician and nurses to help confirm patient's provided history. Patient denies sore throat, reports baseline cough, denies chest pain or belly pain, reports some burning with passing urine, reports very poor appetite, reports not being able to take care of self and afraid of driving because of ongoing lethargy/difficulty staying awake. Medications reviewed from outpatient chart. Per RN, she ripped her right chest port access. We will do one-to-one observation. Spoke with patient's brother over the phone who confirmed that she has been off of chemotherapy pills for the last couple of weeks because of side effect, she has been weak and waking up early in the morning for the last few months but was not confused, this confusion is her first time. She quit smoking 20 years ago. She is full code. She lives in elderly housing. Answered all his questions, he voiced understanding and was agreeable to plan of care. Allergies Allergy/AdvReac Type Severity Reaction Status Date / Time diphenhydramine Allergy Severe Difficulty Verified 10/07/22 14:07 [From Benmarv] Breathing doxorubicin Allergy Severe . Verified 10/07/22 14:07 Home Medications Medication Instructions Recorded Confirmed Type ergocalciferol (vitamin D2) 1,250 50,000 unit PO .Q2WKS 08/18/18 10/07/22 History mcg (50,000 unit) capsule (Vitamin D2) atorvastatin 10 mg tablet (Lipitor) 10 mg PO HS 09/22/19 10/07/22 History pantoprazole 40 mg tablet,delayed 40 mg PO BID 06/11/21 10/07/22 History release (Protonix) cyanocobalamin (vitamin B-12) 500 500 mcg PO DAILY 07/23/21 10/07/22 History mcg tablet (Vitamin B-12) melatonin 5 mg chewable tablet 5 mg PO HS PRN sleep 10/30/21 10/07/22 History apixaban 5 mg tablet (Eliquis) 5 mg PO BID 12/05/21 10/07/22 History potassium chloride 10 mEq 10 meq PO DAILY 05/25/22 10/07/22 History capsule,extended release carvedilol 25 mg tablet 25 mg PO BID #180 tabs 10/07/22 10/07/22 Rx sacubitril 97 mg-valsartan 103 mg 1 tab PO BID #180 tabs 10/07/22 10/07/22 Rx tablet (Entresto) Past Med/Surg History Medical History Arthritis Chronic back pain Chronic pulmonary embolism Constipation Degenerative disc disease Electrolyte and fluid disorder History of breast cancer Rt - 17 years ago - S/p Rt mastectomy, chemo + radiation, Lt - 2018 - s/p lumpectomy x 2, raidation History of depression History of gastric ulcer History of kidney stones History of uterine fibroid Hypertension Limb alert care status RUE Malignant neoplasm of central portion of left breast in female, estrogen receptor negative 2017 Osteoarthritis Osteoporosis Ovarian cancer Spinal stenosis 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 followed with physical therapy. Valvular heart disease follows with [facility] Cardiology Dr Shabazz; moderate MR, mild global hypokinesis LV, RVSP 40-50mmHg Surgical History Port-A-Cath in place (06/09/21) Insertion of Access Port with Fluoroscopy(Left) - Amador Archibald DO, FACS 06/09/2021 H/O: hysterectomy H/O knee surgery left knee reconstruction Status post correction of deviated nasal septum History of tooth extraction History of foot surgery BL History of lumpectomy of left breast x 2 2019 Hx of right mastectomy with lymph node removal 1991 History of breast biopsy Family History Father Esophageal cancer Social History (Updated 08/06/21 @ 11:25 by Laurel Martinez RN) Smoking Status: Former smoker Tobacco Type: Cigarettes Second Hand Exposure: No; Do You Dip or Chew Tobacco: No; Hx Alcohol Use: Yes Alcohol type: beer Hx Substance Use: No Preferred Language: Palestinian Communication Ability: Effective University Internship Required: No Beliefs That Will Affect Care: Scientologist Scientologist Beliefs: presybeterian Current Living Situation: Alone and Personal Care Facility Current Living Situation Comment: [facility] Feels Safe at Home: Yes Assistive Devices: None Review of Systems Review of Systems: Negative otherwise mentioned in HPI. Physical Exam Physical Exam: GENERAL: Alert and awake, tangentiality noted. NAD, on RA. HEENT: No pallor, no icterus. Pupils equal, round and reactive to light. Oral mucosa moist. NECK: No JVD, no neck masses. HEART: S1 and S2 heard. Regular rate and rhythm. No murmur, no gallop. RESPIRATORY SYSTEM: Normal AP diameter. No accessory muscle use. No wheezing, no crackles. ABDOMEN: Soft, bowel sounds present, nontender, no distention. CENTRAL NERVOUS SYSTEM: No facial droop. Speech is clear. Obeys simple commands. Moves extremities. EXTREMITIES: No edema, no erythema seen. Results & Data Results & Data Vital Signs (Past 12 Hours) Vital Signs Temp Pulse Pulse Resp BP BP Pulse Ox 01/16/23 14:00 81 24 159/86 H 92 01/16/23 12:58 82 20 181/95 H 94 01/16/23 11:37 84 01/16/23 11:35 91 01/16/23 11:35 37.2 C 83 18 164/92 H 91 O2 Del Method O2 Flow Rate 01/16/23 14:00 Room Air 01/16/23 12:58 Room Air 01/16/23 11:37 01/16/23 11:35 Room Air 0 01/16/23 11:35 Room Air Code Status & VTE Plan VTE Prophylaxis Plan VTE Prophylaxis will be ordered: Yes
[2023-01-16 17:08] LABS: Adenovirus PCR Not Detected (NotDetected); Bordetella parapertussis PCR Not Detected (NotDetected); Bordetella pertussis PCR Not Detected (NotDetected); Chlamydia pneumoniae PCR Not Detected (NotDetected); Coronavirus 229E PCR Not Detected (NotDetected); Coronavirus CoV-2 (COVID19)PCR Not Detected (NotDetected); Coronavirus HKU1 PCR Not Detected (NotDetected); Coronavirus NL63 PCR Not Detected (NotDetected); Coronavirus OC43PCR Not Detected (NotDetected); Human Metapneumovirus PCR Not Detected (NotDetected); Influenza A PCR Not Detected (NotDetected); Influenza B PCR Not Detected (NotDetected); Mycoplasma pneumoniae PCR Not Detected (NotDetected); Parainfluenza Virus 1 PCR Not Detected (NotDetected); Parainfluenza Virus 2 PCR Not Detected (NotDetected); Parainfluenza Virus 3 PCR Not Detected (NotDetected); Parainfluenza Virus 4 PCR Not Detected (NotDetected); Respiratory Syncytial VirusPCR Not Detected (NotDetected); Rhinovirus/Enterovirus PCR Not Detected (NotDetected)
[2023-01-16] MEDS ORDERED: cefTRIAXone SODIUM 2,000 MG in DEXTROSE 5 % MINI-B 50 ML IV STA (17:12)
[2023-01-16] MEDS ORDERED: cefTRIAXone SODIUM 2000MG/50ML D5W IV ONE (17:15)
[2023-01-16 17:19] LABS: Appearance Urine Turbid (Clear); Blood Urine 1+ (Negative); Color Urine Dark Yellow; Glucose Urine UA Negative (Negative); Ketones Urine Trace (Negative); Leukocyte Esterase Urine 1+ (Negative); Nitrite Urine Positive (Negative); Protein Urine 3+ (Negative); Specific Gravity Urine 1.024 (1.000-1.030); Urobilinogen Urine Negative (Negative); pH Urine 6.5 (4.5-7.5)
[2023-01-16] MEDS ORDERED: cefTRIAXone SODIUM 2000MG/50ML D5W IV STA (17:20)
[2023-01-16 17:23] LABS: Bilirubin Urine 1+ (Negative)
[2023-01-16 17:41] LABS: RBC Urine Automated 0-4 /hpf (0-4); WBC Urine Automated >30 /hpf (0-5)
[2023-01-16 17:42] LABS: Bacteria Urine Automated 4+ (Negative); Cast Urine Automated 0 /lpf (0-5)
[2023-01-16] MEDS ORDERED: OLANZapine 5 MG TABLET PO ONE (19:33)
[2023-01-16] MEDS: carvediloL 25 MG TAB PO SCH (22:24)
[2023-01-16] MEDS: ATORVASTATIN 10 MG TAB PO SCH (22:24)
[2023-01-16] MEDS: PANTOprazole 40 MG TAB PO SCH (22:24)
[2023-01-16] MEDS: MIRTAZAPINE TAB 15 MG TAB PO SCH (22:24)
[2023-01-16] MEDS: VALSARTAN/SACUBITRIL 103/97MG TAB PO SCH (22:24)
[2023-01-17] MEDS: APIXABAN 5 MG TABLET PO SCH ×3 (00:14→20:41)
[2023-01-17 05:19] LABS: Hematocrit (blood only) 29.9 % (37.0-47.0); Hemoglobin 9.8 g/dl (12.0-16.0); Mean Corpuscular Hemoglobin 37.8 pg (25.0-34.0); Mean Corpuscular Hgb Conc 32.8 g/dL (32.0-36.0); Mean Corpuscular Volume 115.4 fL (80.0-100.0); Mean Platelet Volume 10.7 fL (9.4-12.4); Platelet Count 195 K/uL (130-400); RDW Coefficient of Variation 16.8 % (11.5-14.5); RDW Standard Deviation 71.8 fL (36.4-46.3); Red Blood Count 2.59 M/uL (4.20-5.40); White Blood Count 4.23 K/ul (4.8-10.8)
[2023-01-17 05:23] LABS: BUN Creatinine Ratio 47.2 (10-20); Calcium 7.9 mg/dl (8.6-10.3); Creatinine Clr Calc Pharmacy 88.9 ml/min; Est GFR (African American) 122.3 ml/min; Est GFR (Non-African American) 105.5 ml/min; Magnesium 1.5 mg/dl (1.7-2.4); Phosphorus 2.9 mg/dl (2.5-4.9)
[2023-01-17] MEDS ORDERED: POTASSIUM CHLORIDE CRTAB 20 MEQ TABCR PO SCH (09:00)
[2023-01-17] MEDS ORDERED: INFLUENZA VACCINE HIGH-DOSE (HD-IIV4) PF 65+ 0.7mL SYR IM ONE (09:00)
--- NOTE | 2023-01-17 09:25 | Hospitalist Progress Note ---
Date of Service January 17, 2023 Assessment & Plan (1) Fatigue: (2) Acute metabolic encephalopathy: (3) UTI (urinary tract infection): Plan Generalized weakness Possible UTI Likely metabolic encephalopathy Patient presenting with worsening weakness/poor appetite/inability to keep herself awake. Multifactorial in nature given extensive cancer history/chemo and radiation therapy history. CXR and CT head with no acute findings. Cont Rocephin pending clinical improvement and culture results. High risk for delirium Elevated troponin: Likely demand ischemia secondary to acute illness, mildly elevated trop with no accelerated rise and no chest pain. Chronic systolic heart failure-chronic, stable. Hypertension-above goal despite ongoing home medications including entresto and coreg. Adding Norvasc 10mg now. Bilateral breast cancer status post surgery chemoradiation Metastatic ovarian cancer status post debulking surgery radiation and chemotherapy Chronic anemia-hemoglobin at baseline, stable, chronic History of alcohol and tobacco abuse h/o VTE Full Code Apixaban Dispo-pending resolution of confusion and per PT/OT recommendations. I spent a total of 60minutes coordinating, documenting, and providing care for this patient excluding time spent in the performance of separately billed services DO [facility] Admission and Anticipated Discharge Date Admission Date: January 16, 2023 Subjective 77-year-old female presented with confusion possibly secondary to UTI. Patient reports that she is improved today but is somewhat disoriented. Not easy to redirect. Cannot really describe to me if she has had UTI symptoms or not. Tends to focus on her history of breast cancer and treatments on this in the past. Physical Exam Physical Exam: CONSTITUTIONAL: WNWD, vitals as above, generally well-appearing, NAD EYES: normal conjunctivae, no scleral icterus ENT: external ear and nose normal, MMM NECK: trachea midline RESPIRATORY: clear to auscultation bilaterally, no crackles, rales or wheezes, normal respiratory effort CARDIOVASCULAR: regular rate and rhythm, S1 and 2 heard without murmurs, gallops or rubs, no JVD, no peripheral edema CHEST: inspection of chest was normal GASTROINTESTINAL: soft, nontender, ND, no guarding MUSCULOSKELETAL: strength 5/5 throughout, head is normocephalic and atraumatic SKIN: warm and dry NEUROLOGIC: CN 2-12 grossly intact, no sensory deficit, normal cognition, normal speech, no tremor PSYCHIATRIC: alert cooperative but appears disoriented, flight of ideas, difficult to keep her on topic, E Results & Data Results & Data Vital Signs (Past 12 Hours) Vital Signs Temp Pulse Pulse Resp BP Pulse Ox O2 Del Method 01/17/23 08:01 Nasal Cannula 01/17/23 04:16 36.6 C 77 18 186/90 H 93 Nasal Cannula 01/17/23 00:05 01/17/23 00:05 37.0 C 71 20 164/87 H 95 Nasal Cannula 01/16/23 23:55 74 01/16/23 23:00 77 17 185/109 H 95 Nasal Cannula O2 Flow Rate 01/17/23 08:01 2 01/17/23 04:16 2 01/17/23 00:05 2 01/17/23 00:05 2 01/16/23 23:55 01/16/23 23:00 2 Laboratory Results Short CBC 01/16/23 01/17/23 Range/Units 11:40 04:28 WBC 4.35 L 4.23 L (4.8-10.8) K/ul Hgb 9.4 L 9.8 L (12.0-16.0) g/dl Hct 29.0 L 29.9 L (37.0-47.0) % Plt Count 229 195 (130-400) K/uL BMP 01/16/23 01/17/23 11:40 04:28 Sodium 140 138 Potassium 3.6 3.0 L Chloride 104 105 Carbon Dioxide 27 23 BUN 16 17 Creatinine 0.44 L 0.36 L Glucose 130 H 104 H Calcium 9.2 7.9 L Liver Function 01/16/23 Range/Units 11:40 Total Bilirubin 1.3 H (0.2-1.0) mg/dl AST 16 (13-39) U/L ALT 14 (7-52) U/L Alkaline Phosphatase 123 H (34-104) U/L Albumin 3.7 (3.4-5.0) gm/dl Urine 01/16/23 Range/Units Unknown Urine Color Dark Yellow Urine Appearance Turbid A (Clear) Urine pH 6.5 (4.5-7.5) Ur Specific [place] 1.024 (1.000-1.030) Urine Protein 3+ H (Negative) Urine Glucose (UA) Negative (Negative) Medications Administered Current Inpatient Medications Acetaminophen (Acetaminophen 325 Mg Tab) 650 mg PO Q4H PRN PRN Reason: Pain or Fever Stop: 02/15/23 15:27 Al Hydrox/Mg Hydrox/Simethicone (Aluminum/Magnesium Susp 30 Ml Udc) 15 ml PO Q4H PRN PRN Reason: Dyspepsia Stop: 02/15/23 15:27 Apixaban (Apixaban 5 Mg Tablet) 5 mg PO BID [facility] Stop: 02/15/23 22:14 Last Admin: 01/17/23 00:14 Dose: Not Given Atorvastatin Calcium (Atorvastatin 10 Mg Tab) 10 mg PO HS [facility] Stop: 02/15/23 21:03 Last Admin: 01/16/23 22:24 Dose: 10 mg Carvedilol (Carvedilol 25 Mg Tab) 25 mg PO BID [facility] Stop: 02/15/23 21:03 Last Admin: 01/16/23 22:24 Dose: 25 mg Sodium Chloride (Nss) 1,000 mls @ 100 mls/hr IV .Q10H [facility] Stop: 02/15/23 11:29 Last Admin: 01/16/23 21:23 Dose: 100 mls/hr Ceftriaxone Sodium 2,000 mg/ (Dextrose) 50 mls @ 100 mls/hr IV Q24H [facility]; Protocol Stop: 01/19/23 17:59 Magnesium Hydroxide (Magnesium Hydroxide Susp 30 Ml Udc) 30 ml PO Q12H PRN PRN Reason: Constipation Stop: 02/15/23 15:27 Magnesium Oxide (Magnesium Oxide 400 Mg Tab) 400 mg PO DAILY [facility] Stop: 02/16/23 08:59 Mirtazapine (Mirtazapine Tab 15 Mg Tab) 7.5 mg PO HS [facility] Stop: 02/15/23 21:03 Last Admin: 01/16/23 22:24 Dose: 7.5 mg Nitroglycerin (Nitroglycerin Sl 0.4 Mg/Tab Tab) 0.4 mg SL Q5M PRN PRN Reason: Chest Pain Stop: 02/15/23 15:27 Ondansetron HCl (Ondansetron Inj 2 Mg/Ml 2 Ml Vial) 4 mg IV Q6H PRN PRN Reason: Nausea Stop: 02/15/23 15:27 Pantoprazole Sodium (Pantoprazole 40 Mg Tab) 40 mg PO BID [facility] Stop: 02/15/23 21:03 Last Admin: 01/16/23 22:24 Dose: 40 mg Potassium Chloride (Potassium Chloride Crtab 20 Meq Tabcr) 20 meq PO DAILY [facility] Stop: 02/16/23 08:59 Sacubitril/Valsartan (Valsartan/Sacubitril 103/97mg Tab) 1 tab PO BID [facility] Stop: 02/15/23 21:03 Last Admin: 01/16/23 22:24 Dose: 1 tab
[2023-01-17] MEDS: PANTOprazole 40 MG TAB PO SCH ×2 (09:46→20:40)
[2023-01-17] MEDS: VALSARTAN/SACUBITRIL 103/97MG TAB PO SCH ×2 (09:46→20:42)
[2023-01-17] MEDS: carvediloL 25 MG TAB PO SCH ×2 (09:46→20:40)
[2023-01-17] MEDS: MAGNESIUM OXIDE 400 MG TAB PO SCH (09:46)
[2023-01-17] MEDS: SODIUM CHLORIDE 0.9% 1,000 ML IV SCH (09:49)
[2023-01-17] MEDS ORDERED: MAGNESIUM SULFATE 50% 4 GM in SODIUM CHLORIDE 0.9% 1,000 ML IV SCH (10:00)
[2023-01-17] MEDS: POTASSIUM CHLORIDE CRTAB 20 MEQ TABCR PO SCH ×2 (12:15→17:04)
[2023-01-17] MEDS ORDERED: cefTRIAXone SODIUM 2,000 MG in DEXTROSE 5 % MINI-B 50 ML IV SCH (18:00)
--- NOTE | 2023-01-17 18:17 | Electrocardiogram Report ---
Test Reason : Blood Pressure : / mmHG Vent. Rate : 085 BPM Atrial Rate : 085 BPM P-R Int : 136 ms QRS Dur : 110 ms QT Int : 404 ms P-R-T Axes : 082 -55 109 degrees QTc Int : 480 ms Sinus rhythm with Premature supraventricular complexes Possible Left atrial enlargement Left axis deviation Minimal voltage criteria for LVH, may be normal variant ( Brunson product ) Anteroseptal infarct (cited on or before 07-OCT-2022) Abnormal ECG When compared with ECG of 23-DEC-2022 17:40, Premature supraventricular complexes are now Present Confirmed by Eric Shabazz ([id number]) on 01/17/2023 6:17:01 PM Referred By: Confirmed By:Eric Shabazz
[2023-01-17] MEDS: MIRTAZAPINE TAB 15 MG TAB PO SCH (20:41)
[2023-01-17] MEDS: ATORVASTATIN 10 MG TAB PO SCH (20:42)
[2023-01-17] MEDS ORDERED: amLODIPine BESYLATE 5 MG TAB PO SCH (21:00)
--- NOTE | 2023-01-17 22:19 | Electrocardiogram Report ---
Test Reason : Blood Pressure : / mmHG Vent. Rate : 076 BPM Atrial Rate : 076 BPM P-R Int : 140 ms QRS Dur : 114 ms QT Int : 430 ms P-R-T Axes : 059 -71 085 degrees QTc Int : 483 ms Poor data quality, interpretation may be adversely affected Normal sinus rhythm Left axis deviation Septal infarct (cited on or before 07-OCT-2022) Abnormal ECG When compared with ECG of 16-JAN-2023 11:10, (unconfirmed) Premature supraventricular complexes are no longer Present Confirmed by Eric Shabazz ([id number]) on 01/17/2023 10:19:39 PM Referred By: REFERRED SELF Confirmed By:Eric Shabazz
[2023-01-18] MEDS ORDERED: MAGNESIUM SULFATE / D5W 1 GM/100 ML BAG IV ONE (01:55)
[2023-01-18] MEDS ORDERED: METOPROLOL TARTRATE 1 MG/ML VIAL IV STA (02:11)
[2023-01-18] MEDS: ACETAMINOPHEN 325 MG TAB PO PRN ×2 (02:44→13:01)
[2023-01-18 02:47] LABS: Albumin Level 3.4 gm/dl (3.4-5.0); Calcium 8.1 mg/dl (8.6-10.3); Magnesium 2.3 mg/dl (1.7-2.4); Potassium 4.4 mmol/L (3.5-5.1)
[2023-01-18 02:48] LABS: Basophils # (auto) 0.03 K/uL (0.00-0.20); Basophils % (auto) 0.7 %; Eosinophils # (auto) 0.03 K/uL (0.00-0.50); Eosinophils % (auto) 0.7 %; Hematocrit (blood only) 29.2 % (37.0-47.0); Hemoglobin 9.6 g/dl (12.0-16.0); Immature Granulocytes # (auto) 0.02 K/uL (0.01-0.20); Immature Granulocytes % (auto) 0.5 %; Lymphocytes # (auto) 0.68 K/uL (1.20-3.40); Lymphocytes % (auto) 16.4 %; Mean Corpuscular Hemoglobin 37.9 pg (25.0-34.0); Mean Corpuscular Hgb Conc 32.9 g/dL (32.0-36.0); Mean Corpuscular Volume 115.4 fL (80.0-100.0); Monocytes # (auto) 0.35 K/uL (0.11-0.59); Monocytes % (auto) 8.5 %; Neutrophils # (auto) 3.03 K/uL (1.40-6.50); Neutrophils % (auto) 73.2 %; Platelet Count 202 K/uL (130-400); RDW Coefficient of Variation 16.9 % (11.5-14.5); RDW Standard Deviation 72.3 fL (36.4-46.3); Red Blood Count 2.53 M/uL (4.20-5.40); White Blood Count 4.14 K/ul (4.8-10.8)
[2023-01-18 03:09] LABS: BUN Creatinine Ratio 36.2 (10-20); Creatinine Clr Calc Pharmacy 68.1 ml/min; Est GFR (Non-African American) 96.6 ml/min; Phosphorus 1.7 mg/dl (2.5-4.9)
[2023-01-18] MEDS: carvediloL 25 MG TAB PO SCH ×3 (08:48→20:50)
[2023-01-18] MEDS: VALSARTAN/SACUBITRIL 103/97MG TAB PO SCH ×3 (08:48→20:51)
[2023-01-18] MEDS: MAGNESIUM OXIDE 400 MG TAB PO SCH (08:48)
[2023-01-18] MEDS: APIXABAN 5 MG TABLET PO SCH ×3 (08:48→20:50)
[2023-01-18] MEDS: PANTOprazole 40 MG TAB PO SCH ×3 (08:48→20:51)
--- NOTE | 2023-01-18 09:59 | XCELERA ---
[id number]
--- NOTE | 2023-01-18 10:18 | Hospitalist Progress Note ---
Date of Service January 18, 2023 Assessment & Plan (1) Fatigue: (2) Acute metabolic encephalopathy: (3) UTI (urinary tract infection): Plan Generalized weakness Possible UTI Likely metabolic encephalopathy Patient presenting with worsening weakness/poor appetite/inability to keep herself awake.--this appears improved Multifactorial in nature given extensive cancer history/chemo and radiation therapy history. CXR and CT head with no acute findings. Rocephin-->Amoxicillin today--she is improving clinically but remains somewhat confused. Tried to contact her brother by phone today but unable to connect with him Updated Case manger about concerns who will be contacting [facility]. High risk for delirium Elevated troponin: Likely demand ischemia secondary to acute illness, mildly elevated trop with no accelerated rise and no chest pain. Chronic systolic heart failure-chronic, stable. Hypertension-above goal despite ongoing home medications including entresto and coreg. Adding Norvasc 10mg now. Bilateral breast cancer status post surgery chemoradiation Metastatic ovarian cancer status post debulking surgery radiation and chemotherapy Chronic anemia-hemoglobin at baseline, stable, chronic History of alcohol and tobacco abuse h/o VTE Full Code Apixaban Dispo-pending resolution of confusion and per PT/OT recommendations. I spent a total of 60minutes coordinating, documenting, and providing care for this patient excluding time spent in the performance of separately billed services Yue Steward DO [facility] Hospitalist Admission and Anticipated Discharge Date Admission Date: January 17, 2023 Subjective 77-year-old female presented with confusion possibly secondary to UTI. Patient reports that she is improved today but is somewhat disoriented. Not easy to redirect. Cannot really describe to me if she has had UTI symptoms or not. Tends to focus on her history of breast cancer and treatments on this in the past. No changes in her mentation today She was still going back to issues over the past 20 years Seen by PT who recommended rehab because of her confusion, partly The patient thought she was in the [facility] She became upset and told me she didn't care what I said, she was calling a friend to pick her up and she was leaving I explained she would be leaving against medical advice Physical Exam Physical Exam: CONSTITUTIONAL: WNWD, vitals as above, generally well-appearing, NAD EYES: normal conjunctivae, no scleral icterus ENT: external ear and nose normal, MMM NECK: trachea midline RESPIRATORY: clear to auscultation bilaterally, no crackles, rales or wheezes, normal respiratory effort CARDIOVASCULAR: regular rate and rhythm, S1 and 2 heard without murmurs, gallops or rubs, no JVD, no peripheral edema CHEST: inspection of chest was normal GASTROINTESTINAL: soft, nontender, ND, no guarding MUSCULOSKELETAL: strength 5/5 throughout, head is normocephalic and atraumatic SKIN: warm and dry NEUROLOGIC: CN 2-12 grossly intact, no sensory deficit, normal cognition, normal speech, no tremor PSYCHIATRIC: alert cooperative but appears disoriented, flight of ideas, difficult to keep her on topic, E Results & Data Results & Data Vital Signs (Past 12 Hours) Vital Signs Temp Pulse Pulse Resp BP BP Pulse Ox 01/18/23 07:34 36.4 C L 66 18 180/87 H 93 01/18/23 07:24 62 01/18/23 03:09 71 152/76 H 01/18/23 02:45 71 163/85 H 01/18/23 01:48 36.4 C L 71 20 163/85 H 94 01/17/23 23:13 36.7 C 70 20 167/84 H 90 O2 Del Method 01/18/23 07:34 Room Air 01/18/23 07:24 01/18/23 03:09 01/18/23 02:45 01/18/23 01:48 Room Air 01/17/23 23:13 Room Air Laboratory Results Short CBC 01/18/23 Range/Units 02:04 WBC 4.14 L (4.8-10.8) K/ul Hgb 9.6 L (12.0-16.0) g/dl Hct 29.2 L (37.0-47.0) % Plt Count 202 (130-400) K/uL BMP 01/18/23 02:04 Sodium 138 Potassium 4.4 D Chloride 108 H Carbon Dioxide 21 BUN 17 Creatinine 0.47 L Glucose 111 H Calcium 8.1 L Liver Function 01/18/23 Range/Units 02:04 Albumin 3.4 (3.4-5.0) gm/dl Medications Administered Current Inpatient Medications Acetaminophen (Acetaminophen 325 Mg Tab) 650 mg PO Q4H PRN PRN Reason: Pain or Fever Stop: 02/15/23 15:27 Last Admin: 01/18/23 02:44 Dose: 650 mg Al Hydrox/Mg Hydrox/Simethicone (Aluminum/Magnesium Susp 30 Ml Udc) 15 ml PO Q4H PRN PRN Reason: Dyspepsia Stop: 02/15/23 15:27 Amlodipine Besylate (Amlodipine Besylate 5 Mg Tab) 10 mg PO QAM [facility] Stop: 02/17/23 10:14 Amoxicillin/Clavulanate Potassium (Amoxicillin/Clavulanate 875 Mg Tab) 1 tab PO BIDM [facility]; Protocol Stop: 01/23/23 10:14 Apixaban (Apixaban 5 Mg Tablet) 5 mg PO BID [facility] Stop: 02/15/23 22:14 Last Admin: 01/18/23 08:48 Dose: 5 mg Atorvastatin Calcium (Atorvastatin 10 Mg Tab) 10 mg PO HS [facility] Stop: 02/15/23 21:03 Last Admin: 01/17/23 20:42 Dose: 10 mg Carvedilol (Carvedilol 25 Mg Tab) 25 mg PO BID [facility] Stop: 02/15/23 21:03 Last Admin: 01/18/23 08:48 Dose: 25 mg Magnesium Hydroxide (Magnesium Hydroxide Susp 30 Ml Udc) 30 ml PO Q12H PRN PRN Reason: Constipation Stop: 02/15/23 15:27 Magnesium Oxide (Magnesium Oxide 400 Mg Tab) 400 mg PO DAILY [facility] Stop: 02/16/23 08:59 Last Admin: 01/18/23 08:48 Dose: 400 mg Mirtazapine (Mirtazapine Tab 15 Mg Tab) 7.5 mg PO HS [facility] Stop: 02/15/23 21:03 Last Admin: 01/17/23 20:41 Dose: 7.5 mg Nitroglycerin (Nitroglycerin Sl 0.4 Mg/Tab Tab) 0.4 mg SL Q5M PRN PRN Reason: Chest Pain Stop: 02/15/23 15:27 Ondansetron HCl (Ondansetron Inj 2 Mg/Ml 2 Ml Vial) 4 mg IV Q6H PRN PRN Reason: Nausea Stop: 02/15/23 15:27 Pantoprazole Sodium (Pantoprazole 40 Mg Tab) 40 mg PO BID [facility] Stop: 02/15/23 21:03 Last Admin: 01/18/23 08:48 Dose: 40 mg Potassium Chloride (Potassium Chloride Crtab 20 Meq Tabcr) 20 meq PO DAILY [facility] Stop: 02/16/23 08:59 Last Admin: 01/17/23 09:47 Dose: Not Given Potassium Phosphate (Pot Phosphate Monobasic W/ Sod Tab) 2 tab PO QID [facility] Stop: 01/20/23 12:59 Sacubitril/Valsartan (Valsartan/Sacubitril 103/97mg Tab) 1 tab PO BID [facility] Stop: 02/15/23 21:03 Last Admin: 01/18/23 08:48 Dose: 1 tab
[2023-01-18] MEDS: amLODIPine BESYLATE 5 MG TAB PO SCH (11:01)
[2023-01-18] MEDS: AMOXICILLIN/CLAVULANATE 500 MG TAB PO SCH ×3 (11:45→20:50)
[2023-01-18] MEDS: POT PHOSPHATE MONOBASIC W/ SOD TAB PO SCH ×4 (13:02→20:51)
--- NOTE | 2023-01-18 13:10 | Electrocardiogram Report ---
Test Reason : Blood Pressure : / mmHG Vent. Rate : 064 BPM Atrial Rate : 064 BPM P-R Int : 142 ms QRS Dur : 106 ms QT Int : 478 ms P-R-T Axes : 060 -47 -83 degrees QTc Int : 493 ms Normal sinus rhythm Left axis deviation Septal infarct (cited on or before 07-OCT-2022) Abnormal ECG When compared with ECG of 17-JAN-2023 04:23, ST now depressed in Inferior leads T wave inversion now evident in Inferior leads Nonspecific T wave abnormality, worse in Anterior leads Confirmed by Edmond Sam ([id number]) on 01/18/2023 1:10:33 PM Referred By: REFERRED SELF Confirmed By:Edmond Sam
[2023-01-18] MEDS: MIRTAZAPINE TAB 15 MG TAB PO SCH (20:47)
[2023-01-18] MEDS: ATORVASTATIN 10 MG TAB PO SCH ×2 (20:47→20:51)
[2023-01-19] MEDS: ACETAMINOPHEN 325 MG TAB PO PRN (06:17)
[2023-01-19] MEDS: POT PHOSPHATE MONOBASIC W/ SOD TAB PO SCH ×3 (08:40→16:17)
[2023-01-19] MEDS: PANTOprazole 40 MG TAB PO SCH (08:40)
[2023-01-19] MEDS: VALSARTAN/SACUBITRIL 103/97MG TAB PO SCH (08:40)
[2023-01-19] MEDS: carvediloL 25 MG TAB PO SCH (08:40)
[2023-01-19] MEDS: amLODIPine BESYLATE 5 MG TAB PO SCH ×2 (08:40→09:44)
[2023-01-19] MEDS: APIXABAN 5 MG TABLET PO SCH (08:40)
[2023-01-19] MEDS: AMOXICILLIN/CLAVULANATE 500 MG TAB PO SCH ×2 (08:41→16:17)
[2023-01-19] MEDS: MAGNESIUM OXIDE 400 MG TAB PO SCH (08:41)
--- NOTE | 2023-01-19 10:04 | Hospitalist Progress Note ---
Date of Service January 19, 2023 Assessment & Plan (1) Fatigue: (2) Acute metabolic encephalopathy: (3) UTI (urinary tract infection): Plan Generalized weakness Possible UTI Likely metabolic encephalopathy Patient presenting with worsening weakness/poor appetite/inability to keep herself awake.--this appears improved Multifactorial in nature given extensive cancer history/chemo and radiation therapy history. CXR and CT head with no acute findings. Rocephin-->Amoxicillin today--she is improving clinically but remains somewhat confused. Tried to contact her brother by phone today but unable to connect with him Updated Case manger about concerns who will be contacting [facility]. High risk for delirium Elevated troponin: Likely demand ischemia secondary to acute illness, mildly elevated trop with no accelerated rise and no chest pain. Chronic systolic heart failure-chronic, stable. Hypertension-above goal despite ongoing home medications including entresto and coreg. Adding Norvasc 10mg now. Bilateral breast cancer status post surgery chemoradiation Metastatic ovarian cancer status post debulking surgery radiation and chemotherapy Chronic anemia-hemoglobin at baseline, stable, chronic History of alcohol and tobacco abuse h/o VTE Full Code Apixaban Dispo-pending resolution of confusion and per PT/OT recommendations. I spent a total of 60minutes coordinating, documenting, and providing care for this patient excluding time spent in the performance of separately billed services Yue Steward DO [facility] Hospitalist Admission and Anticipated Discharge Date Admission Date: January 17, 2023 Subjective 77-year-old female presented with confusion possibly secondary to UTI. Patient reports that she is improved today but is somewhat disoriented. Not easy to redirect. Cannot really describe to me if she has had UTI symptoms or not. Tends to focus on her history of breast cancer and treatments on this in the past. No changes in her mentation today She was still going back to issues over the past 20 years Seen by PT who recommended rehab because of her confusion, partly The patient thought she was in the [facility] ER She became upset and told me she didn't care what I said, she was calling a friend to pick her up and she was leaving I explained she would be leaving against medical advice Physical Exam Physical Exam: CONSTITUTIONAL: WNWD, vitals as above, generally well-appearing, NAD EYES: normal conjunctivae, no scleral icterus ENT: external ear and nose normal, MMM NECK: trachea midline RESPIRATORY: clear to auscultation bilaterally, no crackles, rales or wheezes, normal respiratory effort CARDIOVASCULAR: regular rate and rhythm, S1 and 2 heard without murmurs, gallops or rubs, no JVD, no peripheral edema CHEST: inspection of chest was normal GASTROINTESTINAL: soft, nontender, ND, no guarding MUSCULOSKELETAL: strength 5/5 throughout, head is normocephalic and atraumatic SKIN: warm and dry NEUROLOGIC: CN 2-12 grossly intact, no sensory deficit, normal cognition, normal speech, no tremor PSYCHIATRIC: alert cooperative but appears disoriented, flight of ideas, difficult to keep her on topic, E Results & Data Results & Data Vital Signs (Past 12 Hours) Vital Signs Temp Pulse Pulse Resp BP Pulse Ox O2 Del Method 01/19/23 07:12 36.3 C L 78 18 176/78 H 92 Room Air 01/19/23 02:46 37.5 C 84 18 183/89 H 93 Room Air 01/18/23 23:49 76 01/18/23 22:54 37.3 C 82 18 167/96 H 94 Room Air 01/18/23 22:06 Room Air Medications Administered Current Inpatient Medications Acetaminophen (Acetaminophen 325 Mg Tab) 650 mg PO Q4H PRN PRN Reason: Pain or Fever Stop: 02/15/23 15:27 Last Admin: 01/19/23 06:17 Dose: 650 mg Al Hydrox/Mg Hydrox/Simethicone (Aluminum/Magnesium Susp 30 Ml Udc) 15 ml PO Q4H PRN PRN Reason: Dyspepsia Stop: 02/15/23 15:27 Amlodipine Besylate (Amlodipine Besylate 5 Mg Tab) 10 mg PO QAM [facility] Stop: 02/17/23 10:14 Last Admin: 01/19/23 09:44 Dose: Not Given Amoxicillin/Clavulanate Potassium (Amoxicillin/Clavulanate 500 Mg Tab) 1 tab PO BID [facility]; Protocol Stop: 01/23/23 10:29 Last Admin: 01/19/23 08:41 Dose: 1 tab Apixaban (Apixaban 5 Mg Tablet) 5 mg PO BID [facility] Stop: 02/15/23 22:14 Last Admin: 01/19/23 08:40 Dose: 5 mg Atorvastatin Calcium (Atorvastatin 10 Mg Tab) 10 mg PO HS [facility] Stop: 02/15/23 21:03 Last Admin: 01/18/23 20:51 Dose: Not Given Carvedilol (Carvedilol 25 Mg Tab) 25 mg PO BID [facility] Stop: 02/15/23 21:03 Last Admin: 01/19/23 08:40 Dose: 25 mg Magnesium Hydroxide (Magnesium Hydroxide Susp 30 Ml Udc) 30 ml PO Q12H PRN PRN Reason: Constipation Stop: 02/15/23 15:27 Magnesium Oxide (Magnesium Oxide 400 Mg Tab) 400 mg PO DAILY [facility] Stop: 02/16/23 08:59 Last Admin: 01/19/23 08:41 Dose: 400 mg Mirtazapine (Mirtazapine Tab 15 Mg Tab) 7.5 mg PO HS [facility] Stop: 02/15/23 21:03 Last Admin: 01/18/23 20:47 Dose: 7.5 mg Nitroglycerin (Nitroglycerin Sl 0.4 Mg/Tab Tab) 0.4 mg SL Q5M PRN PRN Reason: Chest Pain Stop: 02/15/23 15:27 Ondansetron HCl (Ondansetron Inj 2 Mg/Ml 2 Ml Vial) 4 mg IV Q6H PRN PRN Reason: Nausea Stop: 02/15/23 15:27 Pantoprazole Sodium (Pantoprazole 40 Mg Tab) 40 mg PO BID [facility] Stop: 02/15/23 21:03 Last Admin: 01/19/23 08:40 Dose: 40 mg Potassium Chloride (Potassium Chloride Crtab 20 Meq Tabcr) 20 meq PO DAILY [facility] Stop: 02/16/23 08:59 Last Admin: 01/17/23 09:47 Dose: Not Given Potassium Phosphate (Pot Phosphate Monobasic W/ Sod Tab) 2 tab PO QID [facility] Stop: 01/20/23 12:59 Last Admin: 01/19/23 08:40 Dose: 2 tab Sacubitril/Valsartan (Valsartan/Sacubitril 103/97mg Tab) 1 tab PO BID [facility] Stop: 02/15/23 21:03 Last Admin: 01/19/23 08:40 Dose: 1 tab
--- NOTE | 2023-01-19 16:13 | Discharge Summary ---
Discharge Summary Date of Service January 19, 2023 Notes For Next Care Provider Medication Changes From Visit Augmentin x 5 days Admission HPI Per Admitting Provider 77-year-old lady with PMH of chronic systolic heart failure [May 2022 TTE with EF of 30-35%], pulmonary HTN, HTN, HLD, BRCA gene mutation, bilateral breast cancer status post surgery, chemoradiation, metastatic ovarian cancer status post debulking surgery, radiation and chemotherapy [facility]], chronic anemia [baseline hemoglobin around 10], chronic hyponatremia, prediabetes, alcohol abuse and tobacco abuse presented to the ED today due to worsening weakness, tiredness, not being able to care for self, not being able to stay awake/eyes feeling heavy for several days. Though patient is alert and oriented, history is very hard to obtain and seems not chronological, she digresses a lot. Most of the history taken from chart review, discussion with ER physician and nurses to help confirm patient's provided history. Patient denies sore throat, reports baseline cough, denies chest pain or belly pain, reports some burning with passing urine, reports very poor appetite, reports not being able to take care of self and afraid of driving because of ongoing lethargy/difficulty staying awake. Medications reviewed from outpatient chart. Per RN, she ripped her right chest port access. We will do one-to-one observation. Spoke with patient's brother over the phone who confirmed that she has been off of chemotherapy pills for the last couple of weeks because of side effect, she has been weak and waking up early in the morning for the last few months but was not confused, this confusion is her first time. She quit smoking 20 years ago. She is full code. She lives in elderly housing. Answered all his questions, he voiced understanding and was agreeable to plan of care. Principal Dx & Hospital Course #1 = Principal Diagnosis (1) Fatigue: (2) Acute metabolic encephalopathy: (3) UTI (urinary tract infection): Updated Medication List Medication Instructions Recorded Confirmed Type ergocalciferol (vitamin D2) 1,250 50,000 unit PO .Q2WKS 08/18/18 01/16/23 History mcg (50,000 unit) capsule (Vitamin D2) atorvastatin 10 mg tablet (Lipitor) 10 mg PO HS 09/22/19 01/16/23 History pantoprazole 40 mg tablet,delayed 40 mg PO BID 06/11/21 01/16/23 History release (Protonix) cyanocobalamin (vitamin B-12) 500 500 mcg PO DAILY 07/23/21 10/07/22 History mcg tablet (Vitamin B-12) melatonin 5 mg chewable tablet 5 mg PO HS PRN sleep 10/30/21 10/07/22 History apixaban 5 mg tablet (Eliquis) 5 mg PO BID 12/05/21 01/16/23 History carvedilol 25 mg tablet 25 mg PO BID #180 tabs 10/07/22 01/16/23 Rx sacubitril 97 mg-valsartan 103 mg 1 tab PO BID #180 tabs 10/07/22 01/16/23 Rx tablet (Entresto) magnesium oxide 400 mg PO DAILY 01/16/23 01/16/23 History mirtazapine 15 mg tablet 7.5 mg PO HS 01/16/23 01/16/23 History potassium chloride 20 mEq 20 meq PO DAILY 01/16/23 01/16/23 History tablet,extended release amoxicillin 500 mg-potassium 1 tab PO BID #10 tabs 01/19/23 Rx clavulanate 125 mg tablet Hospital Stay Data Consultations 01/16/23 14:59 ED Decision to Admit Stat Diagnostic Imagining Performed 01/16/23 11:26 CT head/brain wo con Stat Pending Results Patient Have Any Pending Studies at Discharge: No Discharge Instructions Given to Patient (Per Discharging Provider) Please complete your antibiotic course and followup wtih your primary care ph ysician in the next week. Please do not drive until you are cleared to do so by your primary care physician on follow-up. It was a pleasure taking care of you! Please call if you have any questions or problems. You can reach a [facility] hospitalist on duty at [facility] 24 hours a day by calling [phone]. Take care of yourself. Yue Steward, DO [facility]
--- OUTSIDE RECORDS SUMMARY | 2023-01-22 09:49 | External Medical Summary | Summary of Care ---
Author Name Unknown Organization [facility] Address [address] [place] [address] [place] [address] Phone [phone] Care Team Providers Care Hospice Office Coordinator Name Role Phone Marilyn West DO Primary Care Provider [phone] Encounter Details Date Type Department Care Team Description 12/01/2022 Specialty Pharmacy [facility], [address] [address] Medication, [facility], [address] [address] Allergies Active Allergy Reactions Severity Noted Date Comments Dust Other (Please comment) High 10/02/2014 Fumes/odors documented as of this encounter (statuses as of 12/25/2022) Medications Medication Sig Dispensed Refills Start Date End Date Status Melatonin-Chamomile 3-500 MG-MCG TABS Take by mouth. 0 Act kenyatta PROLIA 60 MG/ML injection inject 60 milligrams UNDER THE SKIN FOR 1 DOSE EVERY 6 MONTHS 0 12/10/2017 Active Bismuth Subsalicylate 262 MG Oral Tablet Chewable Take by mouth. 0 Active Vitamin B-12 500 MCG Oral Tablet (vitamin B-12) Take 2 Tablets by mouth in the morning. 0 10/27/2020 Active Magnesium Oxide -Mg Supplement 400 MG Oral Capsule Take 1 Tab by mouth daily. 0 09/22/2020 Active Docusate Sodium 100 MG Oral CapsuleIndications:D rug-induced constipation Take 1 Capsule by mouth in the morning and 1 Capsule before bedtime. 60 Capsule 11 07/02/2021 Active Carvedilol 3.125 MG Oral Tablet (Coreg)Indications:H TN, goal below 140/90 take 1 tablet by mouth twice a day 60 Tablet 11 10/10/2021 Active Potassium Chloride ER 10 MEQ Oral Capsule Extended ReleaseIndications:H ypokalemia take 1 capsule by mouth daily 90 Capsule 0 01/19/2022 Active Sacubitril-Valsartan 49-51 MG Oral Tablet (Entresto) 1 Tablet. 0 12/05/2021 Active Vitamin D (Ergocalciferol) 1.25 MG (01679 UT) Oral Capsule (Drisdol)Indications :Vitamin D deficiency TAKE ONE CAPSULE BY MOUTH EVERY 2 WEEKS 6 Capsule 5 05/15/2022 Active Lynparza 100 MG Oral Tablet (Olaparib) Take 2 tablets (200mg) by mouth 2 times per day. Take whole with water, with or without food. Total daily dose is 400mg. 112 Tablet 5 07/09/2022 Active Atorvastatin Calcium 10 MG Oral Tablet (Lipitor)Indications :Hyperlipidemia with target LDL less than 100 take 1 tablet by mouth once daily 90 Tablet 1 09/08/2022 Active Pantoprazole Sodium 40 MG Oral Tablet Delayed Release (Protonix)Indication s:Gastrointestinal hemorrhage associated with gastric ulcer take 1 tablet by mouth twice a day 180 Tablet 1 09/24/2022 Active Eliquis 5 MG Oral Tablet (Apixaban) take 1 tablet by mouth every morning and 1 tablet before at bedtime 180 Tablet 0 10/22/2022 Active Mirtazapine 15 MG Oral Tablet (Remeron)Indications :Other insomnia take 1/2 tablet by mouth BEFORE BEDTIME 45 Tablet 0 10/08/2022 Active documented as of this encounter (statuses as of 12/25/2022) Active Problems Problem Noted Date Hypertensive heart disease with chronic systolic congestive heart failure 10/06/2022 Chronic systolic heart failure 3 History of pulmonary embolism 04/30/2022 Hyperlipidemia 04/30/2022 Prediabetes 01/20/2021 Overview: Per Prediabetes protocol Malignant neoplasm of specified parts of peritoneum 08/19/2020 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 08/19/2020 Malignant neoplasm of unspecified ovary 01/31/2020 Malignant neoplasm of pelvis 01/31/2020 Gastro-esophageal reflux disease without esophagitis 01/31/2020 Hyponatremia 04/02/2019 Pulmonary hypertension 07/13/2018 BRCA1 gene mutation positive in female 0 09/01/2017 Overview: Monoallenic mutation Personal history of breast cancer 2016 Nonrheumatic mitral valve regurgitation 12/29/2016 Moderate tricuspid insufficiency Senile osteoporosis 06/29/2016 HTN, goal below 140/90 06/08/2016 Vitamin D deficiency 06/08/2016 documented as of this encounter (statuses as of 12/25/2022) Resolved Problems Problem Noted Date Resolved Date Adrenal nodule 01/31/2020 04/30/2022 Left foot pain 10/21/2017 08/19/2022 Encounter for examination fo r normal comparison and control in clinical research program 09/24/2017 01/17/2018 Overview: Diagnosis changed due to Research Module. Go to Snapshot for study details. Malignant neoplasm of left female breast 06/06/2018 Cancer Staging:Clinical stage from 07/05/2017: Unsigned Pathologic stage from 07/05/2017:Stage IA(T1a, N0, cM0) - Signed by Randal Lerma MD on 07/05/2017 Overview: Invasive lobular. Cervical spinal stenosis 06/09/2016 017 TMJ dysfunction 06/09/2016 01/14/2017 Osteoporosis 06/08/2016 01/14/2017 Lumbar spinal stenosis 06/08/2016 7 MAL ARABELLA BREAST-CENTRAL 7 Overview: Diagnosed 11/2000. Stage III. S/p mastectomy on the right, chemotherapy, and radiation BENIGN HYPERTENSION 06/08/2016 documented as of this encounter (statuses as of 12/25/2022) Immunizations Name Administration Dates Next Due COVID-19 mRNA, LNP-s, No Pre serve, 2-Dose Series (Moderna) 08/30/2020,08/02/2020 COVID-19, mRNA, LNP-s, PF, B ooster, 100mcg/0.5mg (Moderna) 02/21/2021 DTaP Dipth/Tet/Acell Pertussis (Infanrix), Peds 01/13/2015 Influenza, Whole Virus 01/21/1998,12/22/1993 Pneumococcal Conjugate Vacc, 13 Valent (Prevnar) 05/22/2016 Pneumococcal Polysaccharide PPV23 (Pneumovax) 05/08/2016 SEASONAL INFLUENZA, PF, 6 M & Above, IM , (FLULAVAL or FLUZONE) 12/18/2020,11/13/2017,01/14/2017 Seasonal Influenza, Quadriva lent Hd (Fluzone Hd) 12/24/2021 Seasonal Influenza, Split, I IV3, With Preserve, Inj 12/10/2017,04/13/2016,12/20/2013 Seasonal Influenza, Trivalen t, Adjuvanted, 65+ yrs 01/13/2019,12/10/2017 documented as of this encounter Social History Tobacco Use Types Packs/Day Years Used Date Smoking Tobacco: Former Cigarettes 2 Q uit: 03/15/1991 Smokeless Tobacco: Never Comments:50 pack year histor y Alcohol Use Standard Drinks/Week Comments Yes 0 (1 standard drink = 0.6 oz pur e alcohol) 2 Beers daily Food Insecurity Answer Date Recorded Within the past 12 months, y ou worried that your food would run out before you got money to buy more. Never true 02/07/2019 Within the past 12 months, t he food you bought just didn't last and you didn't have money to get more. Never true 02/07/2019 Sex Assigned at Date Recorded Female 03/30/2019 2:17 PM Manny [employer]AI[employer] Job Start Date Occupation Industry Not on file Not on file Not on file documented as of this encounter Progress Notes * Ame Zarate CPhT - 12/01/2022 10:49 AM EDT Prescribed medication: Medication: lynparza Shipment date: 12/08 Delivery method: Specialty Mail Location Medication Delivered too? Prescription Address: [address] Ame Zarate CPhT [facility] 12/01/2022,10:49 AM documented in this encounter Plan of Treatment Upcoming Encounters Date Type Specialty Care Team Description 04/06/2023 Office Visit Rheumatology Kevin Ambriz MD [address] [place] [address] 04/28/2023 Office Visit Family Medicine Marilyn West DO [address] [place] [id number] Health Maintenance Due Date Last Done Comments Zoster Vaccines (1 of 2) 10/17/1964 DXA Scan 09/28/2019 09/27/2017, 06/19/2015 Depression Screening 02/08/2020 02/07/2019 COVID-19 Vaccine (3 - Moderna risk series) 03/21/2021 02/21/2021, 08/30/2020, 08/02/2020 FOBT ANNUALLY,AGES 18-90 12/16/2021 021, 04/14/2019, 02/15/2018, Additional history exists Influenza Vaccine (FLU shot) (#1) 2022 12/24/2021, 12/18/2020, 01/13/2019, Additional history exists HbA1c 05/12/2023 05/12/2022, 01/03/2021 GFR 10/27/2023 10/26/2022, 01/14, 01/03/2021, Additional history exists DTaP,Tdap,and Td Vaccines (2 - Tdap) 01/13/2025 01/13/2015 Albumin/Creatinine Ratio 10/30/2025 10/30/2022 Pneumococcal Vaccine: 65+ Years Completed 05/22/2016, 05/08/2016 Fecal Occult Blood Test Discontinued 12/17/19 21, 04/14/2019, 02/15/2018, Additional history exists VITAMIN D LEVEL ONCE IN A LIFETIME-USE SMARTSET# [id number] Completed 05/12/2022, 01/03/2021, 06/27/2019, Additional history exists Cologuard Discontinued Colonoscopy Discontinued Colorectal Cancer Screening Discontinued GARDASIL-HPV IMMUNIZATION SERIES Aged Out No longer eligible based on patient's age to complete this topic Hepatitis B Aged Out No longer eligi ble based on patient's age to complete this topic MENINGOCOCCAL (MENACTRA/MENVEO) Aged Out No longer eligible based on patient's age to complete this topic Sigmoidoscopy Discontinued documented as of this encounter Medical Devices Implanted Type Area Topographical Surveyor Device Identifier Shelf Expiration Date Model / Serial / Lot Lens 19.5 Mx60e - [id number] - [id number] Implanted:Qty: 1 on 12/21/2017 by Kenn Brown MD at OR [facility] Right: Eye [employer] 10/12/2020 [id number]-22.5 / [id number] / [id number] Lens 19.0 Mx60e - [id number] - [id number] Implanted:Qty: 1 on 01/06/2018 by Kenn Brown MD at OR [facility] Left: Eye [employer] 11/12/2020 [id number] / [id number] / documented as of this encounter Advance Directives Latest Code Status on File Code Status Date Activated Date Inactivated Comments Full Code 01/06/2018 9:07 AM 01/06/2018 4:08 PM Thi s order reflects the patients wishes and were consensually agreed upon. Code Status History Code Status Date Activated Date Inactivated Comments Full Code 12/21/2017 8:56 AM 12/21/2017 3:31 PM This order reflects the patients wishes and were consensually agreed upon. Care Teams Hospice Office Coordinator Relationship Specialty Start Date End Date Marilyn West DO [address] [place] [address] PCP - General Family Medicine 11/09/22 documented as of this encounter
--- OUTSIDE RECORDS SUMMARY | 2023-01-22 09:49 | External Medical Summary | Summary of Care ---
Author Name Unknown Organization [facility] Address [address] [facility] [address] Phone [phone] Care Team Providers Care Wood Coater Name Role Phone Cathryn Cook DO Primary Care Provider [phone] Reason for Visit * Reason Comments eRx-Medication Refill Encounter Details Date Type Department Care Team (Late st Contact Info) Description 01/04/2023 Refill General Internal Medicine [facility] [address] [facility] [place] [address] Rachel Centeno MD [address] [place] [address] Other insomnia Allergies Active Allergy Reactions Criticality Noted Date Comments Dust Other (Please comment) High 10/02/2014 Fumes/odors documented as of this encounter (statuses as of 01/05/2023) Medications Medication Sig Dispensed Refills Start Date End Date Status Melatonin-Chamomil e 3-500 MG-MCG TABS Take by mouth. 0 Active PROLIA 60 MG/ML injection inject 60 milligrams [...] 09/22/2020 Active Docusate Sodium 100 MG Oral CapsuleIndications :Drug-induced constipation Take 1 Capsule by mouth in the morning and 1 Capsule before bedtime. 60 Capsule 11 07/02/2021 Active Carvedilol 3.125 MG Oral Tablet (Coreg)Indications :HTN, goal below 140/90 take 1 tablet by mouth twice a day 60 Tablet 11 10/10/2021 Active Potassium Chloride ER 10 MEQ Oral Capsule Extended ReleaseIndications :Hypokalemia take 1 capsule by mouth daily 90 Capsule 0 01/19/2022 Active Sacubitril-Valsart an 49-51 MG Oral Tablet (Entresto) 1 Tablet. 0 12/05/2021 Active Vitamin D (Ergocalciferol) 1.25 MG (67317 UT) Oral Capsule (Drisdol)Indicatio ns:Vitamin D deficiency TAKE ONE CAPSULE BY MOUTH EVERY 2 WEEKS 6 Capsule 5 05/15/2022 Active Lynparza 100 MG Oral Tablet (Olaparib) Take 2 tablets (200mg) by mouth 2 times per day. Take whole with water, with or without food. Total daily dose is 400mg. 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 take 1 tablet by mouth twice a day 180 Tablet 1 09/24/2022 Active Eliquis 5 MG Oral Tablet (Apixaban) take 1 tablet by mouth every morning and 1 tablet before at bedtime 180 Tablet 0 10/22/2022 Active Mirtazapine 15 MG Oral Tablet (Remeron)Indicatio ns:Other insomnia take 1/2 tablet by mouth BEFORE BEDTIME 45 Tablet 0 01/05/2023 Active Mirtazapine 15 MG Oral Tablet (Remeron)Indicatio ns:Other insomnia take 1/2 tablet by mouth BEFORE BEDTIME 45 Tablet 0 10/08/2022 01/06/20 23 Discontinued documented as of this encounter (statuses as of 01/05/2023) Active Problems Problem Noted Date Diagnosed Date Hypertensive heart disease w ith chronic systolic congestive heart failure 10/06/2022 Chronic systolic heart failure 04/30/2022 History of pulmonary embolism 04/30/2022 Hyperlipidemia 04/30/2022 Prediabetes 01/20/2021 Overview: Per Prediabetes protocol 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 08/19/2020 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 08/19/2020 Malignant neoplasm of unspecified ovary 01/31/20 Malignant neoplasm of pelvis 01/31/2020 Gastro-esophageal reflux disease without esophag itis 01/31/2020 Hyponatremia 04/02/2019 Pulmonary hypertension 07/13/2018 BRCA1 gene mutation positive in female 8 Overview: Monoallenic mutation Personal history of breast cancer 01/14/2017 Nonrheumatic mitral valve regurgitation 12/30/19 Moderate tricuspid insufficiency 12/29/2016 Senile osteoporosis 06/29/2016 HTN, goal below 140/90 06/08/2016 Vitamin D deficiency 06/08/2016 documented as of this encounter (statuses as of 01/05/2023) Resolved Problems Problem Noted Date Diagnosed Date Resolved Date Adrenal nodule 01/31/2020 04/30/2022 Left foot pain 10/21/2017 08/19/2022 Encounter for examination fo r normal comparison and control in clinical research program 09/24/2017 01/17/2018 Overview: Diagnosis changed due to Research Module. Go to Snapshot for study details. 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 Cervical spinal stenosis 06/09/201604/2016 TMJ dysfunction 06/09/2016 01/14/2017 Osteoporosis 06/08/2016 01/14/2017 Lumbar spinal stenosis 06/08/201606/09 MAL ARABELLA BREAST-CENTRAL 01/14 Overview: Diagnosed 11/2000. Stage III. S/p mastectomy on the right, chemotherapy, and radiation BENIGN HYPERTENSION 06/09/19 17 documented as of this encounter (statuses as of 01/05/2023) Immunizations Name Administration Dates Next Due COVID-19 mRNA, LNP-s, No Pre serve, 2-Dose Series (Moderna) 08/30/2020,08/02/2020 COVID-19, mRNA, LNP-s, PF, B ooster, 100mcg/0.5mg (Moderna) 02/21/2021 DTaP Dipth/Tet/Acell Pertussis (Infanrix), Peds 01/13/2015 Pneumococcal Conjugate Vacc, 13 Valent (Prevnar) 05/22/2016 [...] oz pur e alcohol) 2 Beers daily Sex and Gender Information Value Date Recorded Sex Assigned at Female 03/30/2019 2:17 PM EST Gender Identity Female 03/30/2019 2:17 PM EST Sexual Orientation Straight 03/30/2019 2: 17 PM EST Job Start Date Occupation Industry Not on file Not on file Not on file documented as of this encounter Miscellaneous Notes * Telephone Encounter - Cathryn Cook DO - 01/05/2023 9:51 AM EDTSigned Prescriptions: Disp Refills Mirtazapine 15 MG Oral Tablet (Remeron) 45 Tab*0 Sig: take 1/2 tablet by mouth BEFORE BEDTIMEAuthorizing Provider: CATHRYN COOK * Telephone Encounter - Gurwinder Marshall [facility] - 01/04/2023 5:38 PM EDT Pending Prescriptions: Disp Refills Mirtazapine 15 MG Oral Tablet [Pharmacy Me*45 Tab*0 Sig: take 1/2 tablet by mouth BEFORE BEDTIME * Telephone Encounter - Gurwinder Marshall [facility] - 01/04/2023 5:37 PM EDT Unable to authorize medication refills for pended medication(s) at this time. Part of the protocol criteria used for refill authorization was not satisfied. Patient needs ALT and WBC on file. Please approve if appropriate. Thanks, Gurwinder Marshall, PharmD Clinical Pharmacist [facility](formerly telepharmacy) [phone] 01/04/2023, 5:37 PM documented in this encounter Plan of Treatment Upcoming Encounters Date Type Department Care Team (Late st Contact Info) Description 04/06/2023 9:40 AM EST Office Visit Rheumatology [place] [address] [facility] [place] [address] Kevin Ambriz MD [address] [place] [address] [place] [address] 04/28/2023 1:20 PM EST Office Visit Family Practice [facility] [address] [facility] [place] [address] Cathryn Cook DO [address] [place] [address] Health Maintenance Due Date Last Done Comments [...] D LEVEL ONCE IN A LIFETIME-USE SMARTSET# [id number] Completed 05/12/2022, 01/03/2021, 06/27/2019, Additional history exists [...] this encounter Medical Devices Implanted Type Area Straightening Press Operator Helper Device Identifier Shelf Expiration Date Model / Serial / Lot Lens 19.5 Mx60e - [id number] - [id number] Implanted:Qty: 1 on 12/21/2017 by Kenn Brown MD at [facility] Right: Eye [employer] 10/12/2020 [id number]-81.5 / [id number] / [id number] Lens 19.0 Mx60e - [id number] - [id number] Implanted:Qty: 1 on 01/06/2018 by Kenn Brown MD at [facility] Left: Eye [employer]OMB 11/12/2020 [id number]-03.0 / [id number] / documented as of this encounter Visit Diagnoses Diagnosis Other insomnia documented in this encounter Advance Directives Latest Code Status [...] and were consensually agreed upon. Care Teams Wood Coater Relationship Specialty Start Date End Date Cathryn Cook DO [address] [place] [address] PCP - General Family Medicine 11/09/22 documented as of this encounter
--- OUTSIDE RECORDS SUMMARY | 2023-01-22 09:50 | External Medical Summary | Summary of Care ---
Author Name Unknown Organization [facility] Address [address] [place] [facility] [place] [address] Phone [phone] Care Team Providers Care Recoater Name Role Phone Marilyn West DO Primary Care Provider [phone] Encounter Details Date Type Department Care Team Description 12/01/2022 Specialty Pharmacy [facility], [address] [address] Medication, [facility] Specialty, [address] [address] Allergies Active Allergy Reactions Severity Noted Date Comments Dust Other (Please comment) High 10/02/2014 Fumes/odors documented as of this encounter (statuses as of 12/01/2022) Medications Medication Sig Dispensed Refills Start Date [...] 12/05/2021 Active Vitamin D (Ergocalciferol) 1.25 MG (55645 UT) Oral Capsule (Drisdol)Indications :Vitamin D deficiency [...] as of this encounter (statuses as of 12/01/2022) Active Problems Problem Noted Date Hypertensive heart [...] mitral valve regurgitation 12/29/2016 Moderate tricuspid insufficiency 017 Senile osteoporosis 06/29/2016 HTN, goal below 140/90 06/08/2016 Vitamin D deficiency 06/08/2016 documented as of this encounter (statuses as of 12/01/2022) Resolved Problems Problem Noted Date Resolved Date Adrenal nodule 01/31/2020 04/30/2022 Left foot pain 10/21/2017 08/19/2022 Encounter for examination fo r normal comparison and control in clinical research program 09/24/2017 01/17/2018 Overview: Diagnosis changed due to Research Module. Go to Snapshot for study details. Malignant neoplasm of left female breast 017 06/06/2018 Cancer Staging:Clinical stage from 07/05/2017: Unsigned [...] as of this encounter (statuses as of 12/01/2022) Immunizations Name Administration Dates Next Due COVID-19 mRNA, LNP-s, No Pre serve, 2-Dose Series (Moderna) 08/30/2020,08/02/2020 COVID-19, mRNA, LNP-s, PF, B ooster, 100mcg/0.5mg (Moderna) 02/21/2021 DTaP Dipth/Tet/Acell Pertussis (Infanrix), Peds 01/13/2015 Pneumococcal Conjugate Vacc, 13 Valent (Prevnar) 05/22/2016 Pneumococcal Polysaccharide PPV23 (Pneumovax) 05/08/2016 Seasonal Influenza, PF, 6 mo ns & Above, IM , (Flulaval) 12/18/2020,11/13/2017,01/14/2017 Seasonal Influenza, Quadriva lent Hd (Fluzone [...] at Date Recorded Female 03/30/2019 2:[address] Job Start Date Occupation Industry Not on file Not on file Not on file documented as of this encounter Progress Notes * Ame Zarate CPhT - 12/01/2022 10:49 AM EDT Prescribed medication: Medication: lynparza Shipment date: 12/08 Delivery method: Specialty Mail Location Medication Delivered too? Prescription Address: [address] Ame Zarate CPhT [facility] 12/01/2022,10:49 AM documented in this encounter Plan of Treatment Upcoming Encounters Date Type Specialty Care Team Description 04/06/2023 Office Visit Rheumatology Kevin Ambriz MD [address] [place], [place] [address] 04/28/2023 Office Visit Family Medicine Marilyn West DO [address] [place] [address] Health Maintenance Due Date Last Done Comments [...] D LEVEL ONCE IN A LIFETIME-USE SMARTSET# [id number] Completed 05/12/2022, 01/03/2021, 06/27/2019, Additional history exists [...] this encounter Medical Devices Implanted Type Area Shovel Mechanic Device Identifier Shelf Expiration Date Model / Serial / Lot Lens 19.5 Mx60e - [id number] - [id number] Implanted:Qty: 1 on 12/21/2017 by Kenn Brown MD at OR [facility] Right: Eye BAUSCH [employer] LOMB 10/12/2020 [id number]-20.5 / [id number] / [id number] Lens 19.0 Mx60e - [id number] - [id number] Implanted:Qty: 1 on 01/06/2018 by Kenn Brown MD at OR [facility] Left: Eye BAUSCH [employer] LOMB 11/12/2020 [id number]-58.0 / [id number] / documented as of this encounter Advance [...] and were consensually agreed upon. Care Teams Recoater Relationship Specialty Start Date End Date Marilyn West, DO [address] [place] [address] PCP - General Family Medicine 11/09/22 documented as of this encounter
== END 2023-01-19 16:37 | disposition home health service (06) | DRG 689 ==
LOC: ED 11:04 → EDINP 11:04 → SUATTDRO 15:29 → 2W 21:04

== ENCOUNTER 2023-03-03 19:04 | Inpatient (IN) ==
[2023-03-03 20:00] LABS: Basophils # (auto) 0.02 K/uL (0.00-0.20); Basophils % (auto) 0.4 %; Hematocrit (blood only) 36.2 % (37.0-47.0); Hemoglobin 11.4 g/dl (12.0-16.0); Immature Granulocytes # (auto) 0.03 K/uL (0.01-0.20); Immature Granulocytes % (auto) 0.5 %; Lymphocytes # (auto) 0.95 K/uL (1.20-3.40); Lymphocytes % (auto) 17.3 %; Mean Corpuscular Hemoglobin 35.8 pg (25.0-34.0); Mean Corpuscular Hgb Conc 31.5 g/dL (32.0-36.0); Mean Corpuscular Volume 113.8 fL (80.0-100.0); Mean Platelet Volume 10.3 fL (9.4-12.4); Monocytes # (auto) 0.48 K/uL (0.11-0.59); Monocytes % (auto) 8.8 %; Nucleated RBC # (auto) 0.06 K/uL (0.00-0.12); Nucleated RBC % (auto) 1.1 %; Platelet Count 238 K/uL (130-400); RDW Coefficient of Variation 18.3 % (11.5-14.5); RDW Standard Deviation 75.2 fL (36.4-46.3); Red Blood Count 3.18 M/uL (4.20-5.40); White Blood Count 5.48 K/ul (4.8-10.8)
[2023-03-03 20:07] LABS: Appearance Urine Cloudy (Clear); Bacteria Urine Automated 4+ (Negative); Bilirubin Urine Negative (Negative); Blood Urine Trace (Negative); Color Urine Yellow; Glucose Urine UA Negative (Negative); Ketones Urine 1+ (Negative); Leukocyte Esterase Urine 1+ (Negative); Nitrite Urine Negative (Negative); Protein Urine 3+ (Negative); RBC Urine Automated 0-4 /hpf (0-4); Urobilinogen Urine Negative (Negative)
[2023-03-03 20:17] LABS: Albumin Globulin Ratio 1.4 (0.9-2); Albumin Level 4.2 gm/dl (3.4-5.0); BUN Creatinine Ratio 55.7 (10-20); Bilirubin,Total 1.3 mg/dl (0.2-1.0); Calcium 9.6 mg/dl (8.6-10.3); Creatinine Clr Calc Pharmacy 51.5 ml/min; Est GFR (African American) 102.8 ml/min; Est GFR (Non-African American) 88.7 ml/min; Potassium 2.9 mmol/L (3.5-5.1); Total Protein 7.2 gm/dl (6.0-8.3)
[2023-03-03 20:19] LABS: Macrocytosis Present; Polychromasia 1+
[2023-03-03 20:30] LABS: Troponin I High Sensitivity 52.2 pg/ml (0-14)
[2023-03-03 20:31] LABS: Thyroid Stimulating Hormone 4.282 uIu/ml (0.300-4.500)
[2023-03-03] MEDS ORDERED: cefTRIAXone SODIUM 2,000 MG/50 ML BAG IV STA (20:34)
[2023-03-03] MEDS ORDERED: SODIUM CHLORIDE 0.9% 1,000 ML IV ONE (20:34)
[2023-03-03] MEDS ORDERED: cefTRIAXone SODIUM 1,000 MG in DEXTROSE 5 % MINI-B 50 ML IV STA (20:35)
--- NOTE | 2023-03-03 20:48 | Emergency Department Note ---
Impression & Plan Respiratory syncytial virus (RSV), Elevated troponin, Acute UTI (urinary tract infection) ED Provider Note NAME: KIRSTEN YEE AGE: 77 SEX: F : 1945 ARRIVES VIA: Ambulance INFORMANT: Patient, ED PROVIDER(S): Faye Lerma MD CHIEF COMPLAINT: Weakness HPI: This is a 77-year-old female history of ovarian cancer presenting for weakness per patient such as weakness for multiple months to years at this time, worsening over the past 2 weeks patient called EMS today because she was having worsening weakness today. She is fairly vague about her symptoms but currently denies any chest pain, shortness of breath, fever or chills. She denies any pleurisy. She does note that she went to another facility and was diagnosed with "poison in her urine". She does mention that she has had increasing bladder pressure however but did not think of this until prompted. Otherwise she notes no black or tarry stools. ROS: See above HPI for pertinent positives & negatives. A total of 10 systems reviewed and were otherwise negative. PAST MEDICAL HISTORY: See Below PAST SURGICAL HISTORY: See Below FAMILY HISTORY: See Below SOCIAL HISTORY: See Below HOME MEDICATIONS: See Below ALLERGIES: See Below VITALS: See Below PHYSICAL EXAMINATION: General: resting comfortably in no acute distress Head: Normocephalic and atraumatic Eyes: Normal inspection, extraocular muscles intact Ear, nose, throat: Normal external exam Neck: Normal range of motion Respiratory: lungs clear to auscultation bilaterally Cardiovascular: Regular rate/rhythm, no murmur GI: soft, mild suprapubic tenderness Extremities: nontender, moves all extremities Neuro: The patient awake and alert, appropriately conversive, no focal deficits, symmetric faces Skin: Warm, dry, and intact MEDICAL DECISION MAKING: This is a 77-year-old female presenting for weakness. Patient is vague complaints at this time, suprapubic pain, possible UTI previously. Will check urinalysis at this time. Otherwise consider viral syndrome, pneumonia, PE, ACS. Patient's blood returned with no leukocytosis, slight anemia, otherwise hypokalemia and slight anion gap is noted. Patient troponin is elevated above 50. Urinalysis does show signs of UTI with 4+ bacteria Otherwise patient is RSV positive at this time Admission was considered for patient's UTI, possible confusion, RSV and elevated troponin levels. Patient admitted to hospitalist service for this consideration. Differential diagnosis: See above ER treatment provided: See below Diagnostics interpreted by me: ECG: ECG independently interpreted by me with normal sinus rhythm, rate of 81, left axis deviation, normal IN, left bundle branch block, normal QTc, no ST segment elevations consistent with STEMI criteria Cardiac Monitoring: An order was placed for continuous cardiac monitoring. The monitor shows a rate of 65 with sinus rhythm. Laboratory studies: As stated above and show below. Imaging studies: See below. 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 followed with physical therapy. History of depression Valvular heart disease [place] [facility] [place]abazz; moderate MR, mild global hypokinesis LV, RVSP 40-50mmHg Hypertension Malignant neoplasm of central portion of left breast in female, estrogen receptor negative 2016 Surgical History Port-A-Cath in place (06/09/21) Insertion of Access Port with Fluoroscopy(Left) - Amador Archibald DO, FACS 06/09/2021 H/O: hysterectomy H/O knee surgery left knee reconstruction Status post correction of deviated nasal septum History of tooth extraction History of foot surgery BL History of lumpectomy of left breast x 2 2019 Hx of right mastectomy with lymph node removal 1991 History of breast biopsy Family History Father Esophageal cancer Social History Smoking Status: Former smoker Tobacco Type: Cigarettes Second Hand Exposure: No; Do You Dip or Chew Tobacco: No; Hx Alcohol Use: No Hx Substance Use: No Preferred Language: [place] Communication Ability: Effective Fruit Vendor Required: No Beliefs That Will Affect Care: None Current Living Situation: Alone and Other Current Living Situation Comment: Lives independently at [facility] Feels Safe at Home: Yes Safety Concerns: Feels Safe At This Time Assistive Devices: Cane Allergies Allergies Allergy/AdvReac Type Severity Reaction Status Date / Time diphenhydramine Allergy Severe Difficulty Verified 03/03/23 21:31 [From Benadryl] Breathing doxorubicin Allergy Severe . Verified 03/03/23 21:31 Home Meds Home Medications Medication Instructions Recorded Confirmed ergocalciferol (vitamin D2) 1,250 50,000 unit PO .Q2WKS 08/18/18 03/03/23 mcg (50,000 unit) capsule (Vitamin D2) atorvastatin 10 mg tablet (Lipitor) 10 mg PO HS 09/22/19 03/03/23 pantoprazole 40 mg tablet,delayed 40 mg PO BID 06/11/21 03/03/23 release (Protonix) cyanocobalamin (vitamin B-12) 500 500 mcg PO DAILY 07/23/21 03/03/23 mcg tablet (Vitamin B-12) melatonin 5 mg chewable tablet 5 mg PO HS PRN sleep 10/30/21 03/03/23 apixaban 5 mg tablet (Eliquis) 5 mg PO BID 12/05/21 03/03/23 magnesium oxide 400 mg PO DAILY 01/16/23 03/03/23 mirtazapine 15 mg tablet 7.5 mg PO HS 01/16/23 03/03/23 potassium chloride 20 mEq 20 meq PO DAILY 01/16/23 03/03/23 tablet,extended release Previous Rx's Medication Instructions Recorded carvedilol 25 mg tablet 25 mg PO BID #180 tabs 10/07/22 sacubitril 97 mg-valsartan 103 mg 1 tab PO BID #180 tabs 10/07/22 tablet (Entresto) Results & Data (ED) Vital Signs Vital Signs - 24 hr 03/03/23 19:24 03/03/23 19:27 03/03/23 19:27 Temperature Temperature Source Pulse Rate 82 82 Pulse Rate from SpO2 Sensor 82 Respiratory Rate 23 Respiratory Effort / Characteristics Respiratory Depth Blood Pressure Blood Pressure Mean Pulse Oximetry 90 Oxygen Delivery Method Room Air Oxygen Flow Rate Sepsis Recent Fever Within 48 Hours Sepsis New/Unexplained Change in Mental Status Sepsis Action Taken by Nursing Oxygen Flow Rate - Titration Pulse Oximetry Post Tiitration 03/03/23 19:30 03/03/23 19:30 03/03/23 19:30 Temperature 36.7 C Temperature Source Oral Pulse Rate 84 81 Pulse Rate from SpO2 Sensor 81 Respiratory Rate 20 28 H Respiratory Effort / Characteristics Non-Labored Respiratory Depth Normal Blood Pressure 200/115 H Blood Pressure Mean 143 Pulse Oximetry 91 90 Oxygen Delivery Method Room Air Room Air Oxygen Flow Rate Sepsis Recent Fever Within 48 Hours No Sepsis New/Unexplained Change in Mental Status N/A Sepsis Action Taken by Nursing No Action Required Oxygen Flow Rate - Titration Pulse Oximetry Post Tiitration 03/03/23 19:45 03/03/23 20:00 03/03/23 20:30 Temperature Temperature Source Pulse Rate 78 80 Pulse Rate from SpO2 Sensor 74 77 Respiratory Rate 28 H 24 Respiratory Effort / Characteristics Respiratory Depth Blood Pressure Blood Pressure Mean Pulse Oximetry 89 L 98 99 Oxygen Delivery Method Room Air Nasal Cannula Oxygen Flow Rate 0 Sepsis Recent Fever Within 48 Hours Sepsis New/Unexplained Change in Mental Status Sepsis Action Taken by Nursing Oxygen Flow Rate - Titration 2 Pulse Oximetry Post Tiitration 99 03/03/23 20:45 03/03/23 20:45 03/03/23 21:00 Temperature Temperature Source Pulse Rate 81 Pulse Rate from SpO2 Sensor 81 Respiratory Rate 24 Respiratory Effort / Characteristics Respiratory Depth Blood Pressure 190/112 H 195/105 H Blood Pressure Mean 131 129 Pulse Oximetry 96 Oxygen Delivery Method Oxygen Flow Rate Sepsis Recent Fever Within 48 Hours Sepsis New/Unexplained Change in Mental Status Sepsis Action Taken by Nursing Oxygen Flow Rate - Titration Pulse Oximetry Post Tiitration 03/03/23 21:00 03/03/23 21:30 03/03/23 21:30 Temperature Temperature Source Pulse Rate 79 79 Pulse Rate from SpO2 Sensor 78 79 Respiratory Rate 23 28 H Respiratory Effort / Characteristics Respiratory Depth Blood Pressure 204/106 H Blood Pressure Mean 167 Pulse Oximetry 97 90 Oxygen Delivery Method Oxygen Flow Rate Sepsis Recent Fever Within 48 Hours Sepsis New/Unexplained Change in Mental Status Sepsis Action Taken by Nursing Oxygen Flow Rate - Titration Pulse Oximetry Post Tiitration 03/03/23 22:00 03/03/23 22:01 03/03/23 22:01 Temperature Temperature Source Pulse Rate 78 77 Pulse Rate from SpO2 Sensor 72 79 Respiratory Rate 24 22 Respiratory Effort / Characteristics Respiratory Depth Blood Pressure 202/135 H Blood Pressure Mean 163 Pulse Oximetry 98 98 Oxygen Delivery Method Oxygen Flow Rate Sepsis Recent Fever Within 48 Hours Sepsis New/Unexplained Change in Mental Status Sepsis Action Taken by Nursing Oxygen Flow Rate - Titration Pulse Oximetry Post Tiitration 03/03/23 22:30 03/03/23 22:30 Temperature Temperature Source Pulse Rate 76 Pulse Rate from SpO2 Sensor 75 Respiratory Rate 26 H Respiratory Effort / Characteristics Respiratory Depth Blood Pressure 186/94 H Blood Pressure Mean 148 Pulse Oximetry 92 Oxygen Delivery Method Oxygen Flow Rate Sepsis Recent Fever Within 48 Hours Sepsis New/Unexplained Change in Mental Status Sepsis Action Taken by Nursing Oxygen Flow Rate - Titration Pulse Oximetry Post Tiitration Laboratory Data 03/05/23 07:37 03/05/23 07:37 Lab Results 03/03/23 03/03/23 03/03/23 Range/Units 19:37 20:00 21:40 WBC 5.48 (4.8-10.8) K/ul RBC 3.18 L (4.20-5.40) M/uL Hgb 11.4 L (12.0-16.0) g/dl Hct 36.2 L (37.0-47.0) % MCV 113.8 H (80.0-100.0) fL MCH 35.8 H (25.0-34.0) pg MCHC 31.5 L (32.0-36.0) g/dL RDW Std Deviation 75.2 H (36.4-46.3) fL RDW Coeff of Cain 18.3 H (11.5-14.5) % Plt Count 238 (130-400) K/uL MPV 10.3 (9.4-12.4) fL Immature Gran % (Auto) 0.5 % Neut % (Auto) 73.0 % Lymph % (Auto) 17.3 % Da[place]hin % (Auto) 8.8 % Eos % (Auto) 0.0 % Baso % (Auto) 0.4 % Neut # (Auto) 4.00 (1.40-6.50) K/uL Lymph # (Auto) 0.95 L (1.20-3.40) K/uL [place]hin # (Auto) 0.48 (0.11-0.59) K/uL Eos # (Auto) 0.00 (0.00-0.50) K/uL Baso # (Auto) 0.02 (0.00-0.20) K/uL Immature Gran # (Auto) 0.03 (0.01-0.20) K/uL Absolute Nucleated RBC 0.06 (0.00-0.12) K/uL Nucleated RBC % (auto) 1.1 % Polychromasia 1+ Macrocytosis Present Sodium 145 (136-145) mmol/L Potassium 2.9 L (3.5-5.1) mmol/L Chloride 104 (98-107) mmol/L Carbon Dioxide 28 (21-32) mmol/L Anion Gap 13 H (3-11) BUN 34 H (6-23) mg/dl Creatinine 0.61 (0.6-1.2) mg/dl Est Cr Clr Drug Dosing 51.5 ml/min Est GFR ( Amer) 102.8 ml/min Est GFR (Non-Af Amer) 88.7 ml/min BUN/Creatinine Ratio 55.7 H (10-20) Glucose 103 H (70-99(Fasting)) mg/dl Lactate 1.9 (0.4-2.0) mmol/L Calcium 9.6 (8.6-10.3) mg/dl Total Bilirubin 1.3 H (0.2-1.0) mg/dl AST 39 (13-39) U/L ALT 37 (7-52) U/L Alkaline Phosphatase 133 H (34-104) U/L Troponin I High Sens 52.2 H* 50.7 H* (0-14) pg/ml Total Protein 7.2 (6.0-8.3) gm/dl Albumin 4.2 (3.4-5.0) gm/dl Globulin 3.0 (2.5-4.0) gm/dl Albumin/Globulin Ratio 1.4 (0.9-2) TSH 4.282 (0.300-4.500) uIu/ml Urine Color Yellow Urine Appearance Cloudy A (Clear) Urine pH 6.0 (4.5-7.5) Ur Specific Hannah 1.020 (1.000-1.030) Urine Protein 3+ H (Negative) Urine Glucose (UA) Negative (Negative) Urine Ketones 1+ H (Negative) Urine Blood Trace H (Negative) Urine Nitrite Negative (Negative) Urine Bilirubin Negative (Negative) Urine Urobilinogen Negative (Negative) Ur Leukocyte Esterase 1+ H (Negative) Urine WBC (Auto) 10-30 H (0-5) /hpf Urine RBC (Auto) 0-4 (0-4) /hpf U Hyaline Cast (Auto) 5-10 H (0-5) /lpf U Epithel Cells (Auto) 5-10 H (0-5) /lpf Urine Bacteria (Auto) 4+ H (Negative) Adenovirus (PCR) Not Detected (NotDetected) B. pertussis DNA (PCR) Not Detected (NotDetected) B.parapertussis DNA PCR Not Detected (NotDetected) C. pneumoniae DNA (PCR) Not Detected (NotDetected) Coronavirus OC43 (PCR) Not Detected (NotDetected) Coronavirus HKU1 (PCR) Not Detected (NotDetected) Coronavirus 229E (PCR) Not Detected (NotDetected) SARS-CoV-2 (PCR) Not Detected (NotDetected) Coronavirus NL63 (PCR) Not Detected (NotDetected) Human Metapneumovir PCR Not Detected (NotDetected) Influenza Type A (PCR) Not Detected (NotDetected) Influenza Type B (PCR) Not Detected (NotDetected) M. pneumoniae (PCR) Not Detected (NotDetected) Parainfluenza 1 (PCR) Not Detected (NotDetected) Parainfluenza 2 (PCR) Not Detected (NotDetected) Parainfluenza 3 (PCR) Not Detected (NotDetected) Parainfluenza 4 (PCR) Not Detected (NotDetected) RSV (PCR) DETECTED A* (NotDetected) Entero/Rhino (PCR) Not Detected (NotDetected) Administered Medications Acetaminophen (Acetaminophen 325 Mg Tab) 650 mg PO Q4H PRN PRN Reason: Pain or Fever Stop: 04/03/23 00:57 Last Admin: 03/05/23 12:00 Dose: 650 mg Documented By: MIK Amlodipine Besylate (Amlodipine Besylate 5 Mg Tab) 5 mg PO QAM [facility] Stop: 04/04/23 08:59 Last Admin: 03/05/23 09:09 Dose: 5 mg Documented By: MIK Apixaban (Apixaban 5 Mg Tablet) 5 mg PO BID [facility] Stop: 04/03/23 00:57 Last Admin: 03/05/23 09:08 Dose: 5 mg Documented By: Admin: 03/04/23 20:58 Dose: 5 mg Documented By: Admin: 03/04/23 08:32 Dose: 5 mg Documented By: Admin: 03/04/23 01:54 Dose: 5 mg Documented By: JOSEPH Atorvastatin Calcium (Atorvastatin 10 Mg Tab) 10 mg PO HS [facility]STINE Stop: 04/03/23 20:59 Last Admin: 03/04/23 20:58 Dose: 10 mg Documented By: BENITA Carvedilol (Carvedilol 25 Mg Tab) 25 mg PO BID CHRISTINE Stop: 04/03/23 08:59 Last Admin: 03/05/23 09:08 Dose: 25 mg Documented By: Admin: 03/04/23 20:58 Dose: 25 mg Documented By: Admin: 03/04/23 08:33 Dose: 25 mg Documented By: MIK Cyanocobalamin (Cyanocobalamin (B-12) 500 Mcg Tablet) 500 mcg PO DAILY CHRISTINE Stop: 04/03/23 08:59 Last Admin: 03/05/23 09:08 Dose: 500 mcg Documented By: Admin: 03/04/23 09:25 Dose: 500 mcg Documented By: MIK Magnesium Oxide (Magnesium Oxide 400 Mg Tab) 400 mg PO DAILY CHRISTINE Stop: 04/03/23 08:59 Last Admin: 03/05/23 09:08 Dose: 400 mg Documented By: Admin: 03/04/23 09:25 Dose: 400 mg Documented By: MIK Melatonin (Melatonin 3 Mg Tab) 4.5 mg PO HS PRN PRN Reason: sleep Last Admin: 03/04/23 20:57 Dose: 4.5 mg Documented By: BENITA Mirtazapine (Mirtazapine Tab 15 Mg Tab) 7.5 mg PO HS CHRISTINE Stop: 04/03/23 20:59 Last Admin: 03/04/23 20:58 Dose: 7.5 mg Documented By: BENITA Pantoprazole Sodium (Pantoprazole 40 Mg Tab) 40 mg PO BID CHRISTINE Stop: 04/03/23 08:59 Last Admin: 03/05/23 09:08 Dose: 40 mg Documented By: Admin: 03/04/23 20:58 Dose: 40 mg Documented By: Admin: 03/04/23 09:25 Dose: 40 mg Documented By: MIK Potassium Chloride (Potassium Chloride Crtab 20 Meq Tabcr) 20 meq PO DAILY CH[facility]STINE Stop: 04/03/23 08:59 Last Admin: 03/05/23 09:08 Dose: 20 meq Documented By: Admin: 03/04/23 09:25 Dose: 20 meq Documented By: MIK Sacubitril/Valsartan (Valsartan/Sacubitril 103/97mg Tab) 1 tab PO BID CHRISTINE Stop: 04/03/23 08:59 Last Admin: 03/05/23 09:07 Dose: 1 tab Documented By: Admin: 03/04/23 21:01 Dose: 1 tab Documented By: Admin: 03/04/23 08:33 Dose: 1 tab Documented By: MIK Discontinued Medications Amlodipine Besylate (Amlodipine Besylate 5 Mg Tab) 5 mg PO NOW ONE Stop: 03/04/23 07:21 Last Admin: 03/04/23 08:25 Dose: 5 mg Documented By: MIK Hydralazine HCl (Hydralazine Hcl 20 Mg/Ml Vial) 7.5 mg IV NOW STA Stop: 03/04/23 03:53 Last Admin: 03/04/23 04:02 Dose: 7.5 mg Documented By: JOSEPH Hydralazine HCl (Hydralazine Hcl 20 Mg/Ml Vial) 5 mg IV NOW ONE Stop: 03/04/23 04:33 Last Admin: 03/04/23 04:50 Dose: 5 mg Documented By: JOSEPH Hydralazine HCl (Hydralazine Hcl 20 Mg/Ml Vial) 10 mg IV NOW STA Stop: 03/04/23 08:23 Last Admin: 03/04/23 09:00 Dose: 10 mg Documented By: MIK Sodium Chloride (Nss) 1,000 mls @ 999 mls/hr IV .Q1H1M ONE Stop: 03/03/23 21:34 Last Infusion: 03/04/23 00:10 Dose: Infused Documented By: Admin: 03/03/23 21:05 Dose: 999 mls/hr Documented By: SOLOMON Ceftriaxone Sodium (Rocephin) 2,000 mg in 50 mls @ 100 mls/hr IV NOW STA Stop: 03/03/23 21:03 Last Admin: 03/03/23 20:46 Dose: Not Given Documented By: SOLOMON Ceftriaxone Sodium 1,000 mg/ (Dextrose) 50 mls @ 100 mls/hr IV NOW STA; Protocol Stop: 03/03/23 21:04 Last Infusion: 03/03/23 21:49 Dose: Infused Documented By: Admin: 03/03/23 21:05 Dose: 100 mls/hr Documented By: SOLOMON Potassium Chloride (K Ash / Wtr) 10 meq in 100 mls @ 100 mls/hr IV Q1H CHRISTINE Stop: 03/04/23 00:14 Last Infusion: 03/04/23 01:10 Dose: Infused Documented By: Admin: 03/04/23 00:10 Dose: 100 mls/hr Documented By: Infusion: 03/04/23 00:10 Dose: Infused Documented By: Admin: 03/03/23 23:07 Dose: 100 mls/hr Documented By: SOLOMON Ertapenem 1,000 mg/ Syringe 10 mls @ 2 mls/min IV Q24H CHRISTINE Stop: 03/14/23 01:59 Last Admin: 03/05/23 03:56 Dose: 2 mls/min Documented By: Admin: 03/04/23 02:02 Dose: 2 mls/min Documented By: JOSEPH Potassium Chloride/Dextrose/Sod Cl (D5nss + 20meq Kcl) 20 meq in 1,000 mls @ 75 mls/hr IV .[id number] CHRISTINE Stop: 03/05/23 03:37 Last Infusion: 03/04/23 09:20 Dose: Infused Documented By: Admin: 03/04/23 01:54 Dose: 75 mls/hr Documented By: JOSEPH Magnesium Sulfate/Dextrose (Magnesium Sulfate / D5w) 1 gm in 100 mls @ 50 mls/hr IV Q2H CHRISTINE Stop: 03/04/23 12:29 Last Infusion: 03/04/23 12:57 Dose: Infused Documented By: Admin: 03/04/23 10:44 Dose: 50 mls/hr Documented By: Infusion: 03/04/23 10:44 Dose: Infused Documented By: Admin: 03/04/23 09:02 Dose: 50 mls/hr Documented By: MIK Potassium Chloride (K Ash / Wtr) 10 meq in 100 mls @ 100 mls/hr IV Q1H CHRISTINE Stop: 03/04/23 10:29 Last Infusion: 03/04/23 11:48 Dose: Infused Documented By: Admin: 03/04/23 10:11 Dose: 100 mls/hr Documented By: Infusion: 03/04/23 10:02 Dose: Infused Documented By: Admin: 03/04/23 09:02 Dose: 100 mls/hr Documented By: MIK Potassium Chloride (K Ash / Wtr) 10 meq in 100 mls @ 100 mls/hr IV Q1H CHRISTINE Stop: 03/05/23 10:59 Last Infusion: 03/05/23 11:18 Dose: Infused Documented By: Admin: 03/05/23 10:14 Dose: 100 mls/hr Documented By: Infusion: 03/05/23 10:14 Dose: Infused Documented By: Admin: 03/05/23 09:18 Dose: 100 mls/hr Documented By: MIK Magnesium Sulfate/Dextrose (Magnesium Sulfate / D5w) 1 gm in 100 mls @ 50 mls/hr IV Q2H CHRISTINE Stop: 03/05/23 12:59 Last Infusion: 03/05/23 13:15 Dose: Infused Documented By: Admin: 03/05/23 11:09 Dose: 50 mls/hr Documented By: Infusion: 03/05/23 11:09 Dose: Infused Documented By: Admin: 03/05/23 09:18 Dose: 50 mls/hr Documented By: MIK Labetalol HCl (Labetalol Hcl Iv 5 Mg/Ml 20ml) 10 mg IV NOW STA Stop: 03/03/23 22:38 Last Admin: 03/03/23 23:07 Dose: 10 mg Documented By: SOLOMON Co-signed By: EDDIE Labetalol HCl (Labetalol Hcl Iv 5 Mg/Ml 20ml) 10 mg IV NOW STA Stop: 03/04/23 01:45 Last Admin: 03/04/23 01:57 Dose: 10 mg Documented By: AMS Co-signed By: NOEMI Labetalol HCl (Labetalol Hcl Iv 5 Mg/Ml 20ml) 10 mg IV NOW STA Stop: 03/04/23 04:34 Last Admin: 03/04/23 04:50 Dose: 10 mg Documented By: AMS Co-signed By: BENITA Nitroglycerin (Nitroglycerin 2% Ointment 30gm Tube) 0.5 inch EXT Q6H CHRISTINE Stop: 04/03/23 05:29 Last Admin: 03/04/23 05:18 Dose: 0.5 inch Documented By: JOSEPH Nitroglycerin (Nitroglycerin 2% Ointment 30gm Tube) 1 inch EXT Q6H CHRISTINE Stop: 04/03/23 08:59 Last Admin: 03/04/23 08:58 Dose: 1 inch Documented By: MIK Potassium Chloride (Potassium Chloride Crtab 20 Meq Tabcr) 40 meq PO NOW STA Stop: 03/03/23 22:10 Last Admin: 03/03/23 23:08 Dose: 40 meq Documented By: SOLOMON Potassium Chloride (Potassium Chloride Crtab 20 Meq Tabcr) 40 meq PO NOW STA Stop: 03/05/23 08:48 Last Admin: 03/05/23 09:07 Dose: 40 meq Documented By: MIK Sacubitril/Valsartan (Valsartan/Sacubitril 103/97mg Tab) 1 tab PO NOW STA Stop: 03/04/23 02:36 Last Admin: 03/04/23 02:57 Dose: 1 tab Documented By: JOSEPH Zolpidem Tartrate (Zolpidem Tartrate 5 Mg Tab) 5 mg PO NOW STA Stop: 03/03/23 22:38 Last Admin: 03/03/23 23:08 Dose: 5 mg Documented By: SOLOMON Discharge Plan Visit Data Chief Complaint: Weakness Stated Complaint: INCREASED WEAKNESS ED Provider: Faye Lerma Discharge Problem: Respiratory syncytial virus (RSV), Elevated troponin, Acute UTI (urinary tract infection) Patient Disposition: Admitted As Inpatient Discharge Instructions Interventions: ED Discharge Assessment Last Done: 03/04/23 00:29
[2023-03-03 20:53] LABS: Adenovirus PCR Not Detected (NotDetected); Bordetella parapertussis PCR Not Detected (NotDetected); Bordetella pertussis PCR Not Detected (NotDetected); Chlamydia pneumoniae PCR Not Detected (NotDetected); Coronavirus 229E PCR Not Detected (NotDetected); Coronavirus CoV-2 (COVID19)PCR Not Detected (NotDetected); Coronavirus HKU1 PCR Not Detected (NotDetected); Coronavirus NL63 PCR Not Detected (NotDetected); Coronavirus OC43PCR Not Detected (NotDetected); Human Metapneumovirus PCR Not Detected (NotDetected); Influenza A PCR Not Detected (NotDetected); Influenza B PCR Not Detected (NotDetected); Mycoplasma pneumoniae PCR Not Detected (NotDetected); Parainfluenza Virus 1 PCR Not Detected (NotDetected); Parainfluenza Virus 2 PCR Not Detected (NotDetected); Parainfluenza Virus 3 PCR Not Detected (NotDetected); Parainfluenza Virus 4 PCR Not Detected (NotDetected); Rhinovirus/Enterovirus PCR Not Detected (NotDetected)
[2023-03-03 21:29] LABS: Respiratory Syncytial VirusPCR DETECTED (NotDetected)
[2023-03-03] MEDS ORDERED: POTASSIUM CHLORIDE CRTAB 20 MEQ TABCR PO STA (22:09)
[2023-03-03] MEDS ORDERED: ZOLPIDEM TARTRATE 5 MG TAB PO STA (22:37)
[2023-03-03] MEDS ORDERED: LABETALOL HCL IV 5 MG/ML 20ML IV STA (22:37)
[2023-03-03] MEDS: POTASSIUM CHLORIDE / WTR 10 MEQ/100 ML PLCT IV SCH (23:07)
[2023-03-04] MEDS: POTASSIUM CHLORIDE / WTR 10 MEQ/100 ML PLCT IV SCH ×3 (00:10→10:11)
--- NOTE | 2023-03-04 00:33 | History & Physical Report ---
Date of Service March 03, 2023 Assessment & Plan (1) Weakness: Plan: 77-year-old female with past medical significant for prediabetes, hyperlipidemia, pulmonary hypertension, chronic systolic CHF, hypertension, moderate to severe mitral regurgitation, moderate tricuspid insufficiency, chronic pulmonary embolism, vitamin D deficiency, GERD, osteoporosis, history of hyponatremia, history of BRCA gene mutation, bilateral breast cancer s/p surgery, chemo and radiation, metastatic ovarian cancer s/p debulking surgery, radiation and chemotherapy and supposed to be on Lynparza but currently not taking as per patient and has appointment with heme-onc on March 10 as per patient(as per PCP notes PET scan showing areas in the rectum) comes because of weakness. Poor appetite, ambulatory dysfunction not feeling well. Found to have UTI and RSV. Weakness Ambulatory dysfunction Hypokalemia UTI and RSV Weakness most likely from UTI and RSV and hypokalemia Hypokalemia Poor appetite Will replace continue Home supplement Follow repeat labs UTI In January she was admitted for UTI and was discharged on Augmentin Recurrent UTI Will place on Invanz until the cultures are available RSV Supportive care Droplet precautions Chronic systolic CHF Moderate to severe mitral regurgitation Echo done in January 2023 EF of 40 to 45% Continue Coreg and Entresto Getting gentle fluids Monitor for volume overload Mild elevation troponin Left bundle branch block Left bundle branch block was present once in EKG of July 23, 2021 Denies any chest pain We will follow serial enzymes and echo If any concerns will consult cardio Chronic pulmonary embolism On Eliquis Hyperlipidemia On statin Hypertension On Coreg and Entresto IV labetalol as needed placed on nitropaste for persistent elevated BP close monitor. GERD Protonix History of bilateral breast cancer BRCA gene positive S/p surgery and chemoradiation History of ovarian cancer metastatic S/p debulking surgery and chemoradiation Seems has an appointment on March 10 DVT prophylaxis On Eliquis Disposition Med/tele Full code History of Present Illness Chief Complaint: Weakness Primary Care Provider: Marilyn West DO 77-year-old female with past medical history significant for prediabetes, hyperlipidemia, pulmonary hypertension, chronic systolic CHF, hypertension, moderate to severe mitral regurgitation, moderate tricuspid insufficiency, chronic pulmonary embolism, vitamin D deficiency, GERD, osteoporosis, history of hyponatremia, history of BRCA gene mutation, bilateral breast cancer s/p surgery, chemo and radiation, metastatic ovarian cancer s/p debulking surgery, radiation and chemotherapy and supposed to be on Lynparza but currently not taking as per patient and has appointment with heme-onc on March 10 as per patient(as per PCP notes PET scan showing areas in the rectum) comes because of weakness. Poor appetite, ambulatory dysfunction not feeling well. Patient states she cannot even get up and take care of her cat Properly. Denies any headache or neck pain. Has nausea. Feeling heaviness in the eyes. Some scratchy throat. No difficulty swallowing. Has abdominal discomfort. Stools are soft. Denies any blood in the stools or black stools. Has abdominal discomfort. Denies any burning micturition. Currently resting comfortably and hemodynamic stable. Past medical history. As mentioned above Past surgical history. Bunion surgery. Complete removal of breast. Hysterectomy. Injection lumbosacral spine. Cataract surgery. Repair of nasal septum. Social history. Quit smoking 1980s. Smoked 2 packs a day. [id number]. Alcohol 2 beers daily per epic. No drug use. Family history. Brother had AIDS. Paternal aunt had breast cancer. Brother had melanoma. Father had esophageal cancer. Allergies Allergy/AdvReac Type Severity Reaction Status Date / Time diphenhydramine Allergy Severe Difficulty Verified 03/03/23 21:31 [From Benadryl] Breathing doxorubicin Allergy Severe . Verified 03/03/23 21:31 Home Medications Medication Instructions Recorded Confirmed Type ergocalciferol (vitamin D2) 1,250 50,000 unit PO .Q2WKS 08/18/18 03/03/23 History mcg (50,000 unit) capsule (Vitamin D2) atorvastatin 10 mg tablet (Lipitor) 10 mg PO HS 09/22/19 03/03/23 History pantoprazole 40 mg tablet,delayed 40 mg PO BID 06/11/21 03/03/23 History release (Protonix) cyanocobalamin (vitamin B-12) 500 500 mcg PO DAILY 07/23/21 03/03/23 History mcg tablet (Vitamin B-12) melatonin 5 mg chewable tablet 5 mg PO HS PRN sleep 10/30/21 03/03/23 History apixaban 5 mg tablet (Eliquis) 5 mg PO BID 12/05/21 03/03/23 History carvedilol 25 mg tablet 25 mg PO BID #180 tabs 10/07/22 03/03/23 Rx sacubitril 97 mg-valsartan 103 mg 1 tab PO BID #180 tabs 10/07/22 03/03/23 Rx tablet (Entresto) magnesium oxide 400 mg PO DAILY 01/16/23 03/03/23 History mirtazapine 15 mg tablet 7.5 mg PO HS 01/16/23 03/03/23 History potassium chloride 20 mEq 20 meq PO DAILY 01/16/23 03/03/23 History tablet,extended release Past Med/Surg History Medical History Chronic pulmonary embolism Electrolyte and fluid disorder Constipation Arthritis Ovarian cancer Limb alert care status RUE History of uterine fibroid Degenerative disc disease Spinal stenosis Chronic back pain Osteoarthritis Osteoporosis History of kidney stones History of gastric ulcer History of breast cancer Rt - 17 years ago - S/p Rt mastectomy, chemo + radiation, Lt - 2018 - s/p lumpectomy x 2, raidation 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 followed with physical therapy. History of depression Valvular heart disease follows with [facility] Cardiology Dr Shabazz; moderate MR, mild global hypokinesis LV, RVSP 40-50mmHg Hypertension Malignant neoplasm of central portion of left breast in female, estrogen re ceptor negative 2016 Surgical History Port-A-Cath in place (06/09/21) Insertion of Access Port with Fluoroscopy(Left) - Amador Archibald DO, FACS 06/09/2021 H/O: hysterectomy H/O knee surgery left knee reconstruction Status post correction of deviated nasal septum History of tooth extraction History of foot surgery BL History of lumpectomy of left breast x 2 2019 Hx of right mastectomy with lymph node removal 1991 History of breast biopsy Family History Father Esophageal cancer Social History Smoking Status: Former smoker Tobacco Type: Cigarettes Second Hand Exposure: No; Do You Dip or Chew Tobacco: No; Hx Alcohol Use: No Hx Substance Use: No Preferred Language: Stateless Communication Ability: Impaired Senior Abap Developer Required: No Beliefs That Will Affect Care: None Current Living Situation: Alone and Other Current Living Situation Comment: Lives independently at [facility] Feels Safe at Home: Yes Safety Concerns: Feels Safe At This Time Assistive Devices: Cane and Walker Review of Systems Review of Systems: All systems reviewed & are unremarkable except as noted in HPI & below Physical Exam Physical Exam: General- Not in distress Head- atraumatic Eyes- PERRL. ENT- oropharynx clear Neck- supple, no JVD. Lungs- clear to auscultation, no wheezing or crackles. Heart- regular rhythm; no murmur, no gallop. Abdomen- normal bowel sounds, soft, nontender, no distension. Extremities- no pretibial edema, no erythema seen Neuro- alert, oriented PERRL, no facial palsy; no dysarthria; obeys commands, moves extremities. Skin- warm & dry Results & Data Results & Data Vital Signs (Past 12 Hours) Vital Signs Temp Pulse Resp BP Pulse Ox O2 Del Method 03/03/23 19:30 Room Air 03/03/23 19:30 36.7 C 84 20 200/115 H 91 Room Air 03/03/23 19:27 82 03/03/23 19:24 Room Air Diagnostic Findings Laboratory Results WBC 5.48 K/ul (4.8-10.8) 03/03/23 19:37 RBC 3.18 M/uL (4.20-5.40) L 03/03/23 19:37 Hgb 11.4 g/dl (12.0-16.0) L 03/03/23 19:37 Hct 36.2 % (37.0-47.0) L 03/03/23 19:37 MCV 113.8 fL (80.0-100.0) H 03/03/23 19:37 MCH 35.8 pg (25.0-34.0) H 03/03/23 19:37 MCHC 31.5 g/dL (32.0-36.0) L 03/03/23 19:37 RDW Std Deviation 75.2 fL (36.4-46.3) H 03/03/23 19:37 RDW Coeff of Cain 18.3 % (11.5-14.5) H 03/03/23 19:37 Plt Count 238 K/uL (130-400) 03/03/23 19:37 MPV 10.3 fL (9.4-12.4) 12/20/23 19:37 Immature Gran % (Auto) 0.5 % 03/03/23 19:37 Neut % (Auto) 73.0 % 03/03/23 19:37 Lymph % (Auto) 17.3 % 03/03/23 19:37 Searcy % (Auto) 8.8 % 03/03/23 19:37 Eos % (Auto) 0.0 % 03/03/23 19:37 Baso % (Auto) 0.4 % 03/03/23 19:37 Neut # (Auto) 4.00 K/uL (1.40-6.50) 03/03/23 19:37 Lymph # (Auto) 0.95 K/uL (1.20-3.40) L 03/03/23 19:37 Searcy # (Auto) 0.48 K/uL (0.11-0.59) 03/03/23 19:37 Eos # (Auto) 0.00 K/uL (0.00-0.50) 03/03/23 19:37 Baso # (Auto) 0.02 K/uL (0.00-0.20) 03/03/23 19:37 Immature Gran # (Auto) 0.03 K/uL (0.01-0.20) 03/03/23 19:37 Absolute Nucleated RBC 0.06 K/uL (0.00-0.12) 03/03/23 19:37 Nucleated RBC % (auto) 1.1 % 03/03/23 19:37 Polychromasia 1+ 03/03/23 19:37 Macrocytosis Present 03/03/23 19:37 Sodium 145 mmol/L (136-145) 03/03/23 19:37 Potassium 2.9 mmol/L (3.5-5.1) L 03/03/23 19:37 Chloride 104 mmol/L (98-107) 03/03/23 19:37 Carbon Dioxide 28 mmol/L (21-32) 03/03/23 19:37 Anion Gap 13 (3-11) H 03/03/23 19:37 BUN 34 mg/dl (6-23) H 03/03/23 19:37 Creatinine 0.61 mg/dl (0.6-1.2) 03/03/23 19:37 Est Cr Clr Drug Dosing 51.5 ml/min 03/03/23 19:37 Est GFR ( Amer) 102.8 ml/min 03/03/23 19:37 Est GFR (Non-Af Amer) 88.7 ml/min 03/03/23 19:37 BUN/Creatinine Ratio 55.7 (10-20) H 03/03/23 19:37 Glucose 103 mg/dl (70-99(Fasting)) H 03/03/23 19:37 Lactate 1.9 mmol/L (0.4-2.0) 03/03/23 20:00 Calcium 9.6 mg/dl (8.6-10.3) 03/03/23 19:37 Total Bilirubin 1.3 mg/dl (0.2-1.0) H 03/03/23 19:37 AST 39 U/L (13-39) 03/03/23 19:37 ALT 37 U/L (7-52) 03/03/23 19:37 Alkaline Phosphatase 133 U/L (34-104) H 03/03/23 19:37 Troponin I High Sens 50.7 pg/ml (0-14) H* 03/03/23 21:40 Total Protein 7.2 gm/dl (6.0-8.3) 03/03/23 19:37 Albumin 4.2 gm/dl (3.4-5.0) 03/03/23 19:37 Globulin 3.0 gm/dl (2.5-4.0) 03/03/23 19:37 Albumin/Globulin Ratio 1.4 (0.9-2) 03/03/23 19:37 TSH 4.282 uIu/ml (0.300-4.500) 03/03/23 19:37 Urine Color Yellow 03/03/23 19:37 Urine Appearance Cloudy (Clear) A 03/03/23 19:37 Urine pH 6.0 (4.5-7.5) 03/03/23 19:37 Ur Specific Firth 1.020 (1.000-1.030) 03/03/23 19:37 Urine Protein 3+ (Negative) H 03/03/23 19:37 Urine Glucose (UA) Negative (Negative) 03/03/23 19:37 Urine Ketones 1+ (Negative) H 03/03/23 19:37 Urine Blood Trace (Negative) H 03/03/23 19:37 Urine Nitrite Negative (Negative) 03/03/23 19:37 Urine Bilirubin Negative (Negative) 03/03/23 19:37 Urine Urobilinogen Negative (Negative) 03/03/23 19:37 Ur Leukocyte Esterase 1+ (Negative) H 03/03/23 19:37 Urine WBC (Auto) 10-30 /hpf (0-5) H 03/03/23 19:37 Urine RBC (Auto) 0-4 /hpf (0-4) 03/03/23 19:37 U Hyaline Cast (Auto) 5-10 /lpf (0-5) H 03/03/23 19:37 U Epithel Cells (Auto) 5-10 /lpf (0-5) H 03/03/23 19:37 Urine Bacteria (Auto) 4+ (Negative) H 03/03/23 19:37 Adenovirus (PCR) Not Detected (NotDetected) 03/03/23 19:37 B. pertussis DNA (PCR) Not Detected (NotDetected) 03/03/23 19:37 B.parapertussis DNA PCR Not Detected (NotDetected) 03/03/23 19:37 C. pneumoniae DNA (PCR) Not Detected (NotDetected) 03/03/23 19:37 Coronavirus OC43 (PCR) Not Detected (NotDetected) 03/03/23 19:37 Coronavirus HKU1 (PCR) Not Detected (NotDetected) 03/03/23 19:37 Coronavirus 229E (PCR) Not Detected (NotDetected) 03/03/23 19:37 SARS-CoV-2 (PCR) Not Detected (NotDetected) 03/03/23 19:37 Coronavirus NL63 (PCR) Not Detected (NotDetected) 03/03/23 19:37 Human Metapneumovir PCR Not Detected (NotDetected) 03/03/23 19:37 Influenza Type A (PCR) Not Detected (NotDetected) 03/03/23 19:37 Influenza Type B (PCR) Not Detected (NotDetected) 03/03/23 19:37 M. pneumoniae (PCR) Not Detected (NotDetected) 03/03/23 19:37 Parainfluenza 1 (PCR) Not Detected (NotDetected) 03/03/23 19:37 Parainfluenza 2 (PCR) Not Detected (NotDetected) 03/03/23 19:37 Parainfluenza 3 (PCR) Not Detected (NotDetected) 03/03/23 19:37 Parainfluenza 4 (PCR) Not Detected (NotDetected) 03/03/23 19:37 RSV (PCR) DETECTED (NotDetected) A* 03/03/23 19:37 Entero/Rhino (PCR) Not Detected (NotDetected) 03/03/23 19:37 ECG Additional Comments: ECG. Sinus rhythm with premature supraventricular complexes at a rate of 81. Left axis deviation. Left bundle branch block. Code Status & VTE Plan VTE Prophylaxis Plan VTE Prophylaxis will be ordered: Yes
[2023-03-04] MEDS ORDERED: NITROGLYCERIN SL 0.4 MG/TAB TAB SL PRN (00:58)
[2023-03-04] MEDS ORDERED: LABETALOL HCL IV 5 MG/ML 20ML IV PRN (00:58)
[2023-03-04] MEDS ORDERED: D5NSS + 20MEQ KCL 20 MEQ/1,000 ML BAG IV SCH (00:58)
[2023-03-04] MEDS ORDERED: LABETALOL HCL IV 5 MG/ML 20ML IV STA ×2 (01:44→04:33)
[2023-03-04] MEDS: APIXABAN 5 MG TABLET PO SCH ×3 (01:54→20:58)
[2023-03-04] MEDS: ERTAPENEM SODIUM 1,000 MG in SYRINGE 0 ML IV SCH (02:02)
[2023-03-04] MEDS ORDERED: VALSARTAN/SACUBITRIL 103/97MG TAB PO STA (02:35)
[2023-03-04] MEDS ORDERED: hydrALAZINE HCL 20 MG/ML VIAL IV STA ×2 (03:52→08:22)
[2023-03-04] MEDS ORDERED: hydrALAZINE HCL 20 MG/ML VIAL IV ONE (04:32)
[2023-03-04] MEDS ORDERED: NITROGLYCERIN 2% OINTMENT 30GM TUBE EXT SCH ×2 (05:30→09:00)
[2023-03-04 06:03] LABS: Basophils # (auto) 0.03 K/uL (0.00-0.20); Basophils % (auto) 0.6 %; Eosinophils # (auto) 0.01 K/uL (0.00-0.50); Eosinophils % (auto) 0.2 %; Hematocrit (blood only) 33.1 % (37.0-47.0); Hemoglobin 10.5 g/dl (12.0-16.0); Immature Granulocytes # (auto) 0.06 K/uL (0.01-0.20); Immature Granulocytes % (auto) 1.1 %; Lymphocytes # (auto) 0.79 K/uL (1.20-3.40); Lymphocytes % (auto) 15.1 %; Mean Corpuscular Hemoglobin 36.3 pg (25.0-34.0); Mean Corpuscular Hgb Conc 31.7 g/dL (32.0-36.0); Mean Corpuscular Volume 114.5 fL (80.0-100.0); Mean Platelet Volume 10.4 fL (9.4-12.4); Monocytes # (auto) 0.46 K/uL (0.11-0.59); Monocytes % (auto) 8.8 %; Neutrophils # (auto) 3.87 K/uL (1.40-6.50); Neutrophils % (auto) 74.2 %; Nucleated RBC # (auto) 0.08 K/uL (0.00-0.12); Nucleated RBC % (auto) 1.5 %; Platelet Count 180 K/uL (130-400); RDW Coefficient of Variation 18.1 % (11.5-14.5); RDW Standard Deviation 74.4 fL (36.4-46.3); Red Blood Count 2.89 M/uL (4.20-5.40); White Blood Count 5.22 K/ul (4.8-10.8)
--- OUTSIDE RECORDS SUMMARY | 2023-03-04 06:07 | External Medical Summary | Summary of Care ---
Author Name Unknown Organization [facility] Address [address] [place] [address] Phone [phone] Care Team Providers Care Soil Science Professor Name Role Phone Marilyn West DO Primary Care Provider [phone] Reason for Visit * Reason Onset Date Comments Appointment 02/19/2023 Encounter Details Date Type Department Care Team ([facility] st Contact Info) Description 02/19/2023 Telephone [facility], [facility] [address] [facility] [place] [address] Services, Scheduling [address] [place] [address] Appointment (/) Allergies Active Allergy Reactions Criticality Noted Date Comments Dust Other (Please comment) High 10/02/2014 Fumes/odors documented as of this encounter (statuses as of 02/19/2023) Medications Medication Sig Dispensed Refills Start Date [...] 12/05/2021 Active Vitamin D (Ergocalciferol) 1.25 MG (20451 UT) Oral Capsule (Drisdol)Indications :Vitamin D deficiency TAKE ONE CAPSULE BY MOUTH EVERY 2 WEEKS 6 Capsule 5 05/15/2022 Active Atorvastatin Calcium 10 MG Oral Tablet (Lipitor)Indications :Hyperlipidemia with target LDL less than 100 take 1 tablet by mouth once daily 90 Tablet 1 09/08/2022 Active Pantoprazole Sodium 40 MG Oral Tablet Delayed Release (Protonix)Indication s:Gastrointestinal hemorrhage associated with gastric ulcer take 1 tablet by mouth twice a day 180 Tablet 1 09/24/2022 Active Mirtazapine 15 MG Oral Tablet (Remeron)Indications :Other insomnia take 1/2 tablet by mouth BEFORE BEDTIME 45 Tablet 0 01/05/2023 Active Eliquis 5 MG Oral Tablet (Apixaban) take 1 tablet by mouth every morning and 1 tablet before at bedtime 180 Tablet 1 01/22/2023 Active documented as of this encounter (statuses as of 02/19/2023) Active Problems Problem Noted Date Diagnosed Date Chronic pulmonary embolism 02/08/2023 Secondary malignant neoplasm of large intestine and rectum 02/08/2023 Hypertensive heart disease w ith chronic systolic congestive heart failure 10/06/2022 Chronic systolic heart failure 04/30/2022 History of pulmonary embolism 04/30/2022 Hyperlipidemia 04/30/2022 Prediabetes 01/20/2021 Overview: Per Prediabetes protocol 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 08/19/2020 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 08/19/2020 Malignant neoplasm of unspecified ovary 01/31/20 20 Malignant neoplasm of pelvis 01/31/2020 Gastro-esophageal reflux disease without esophag itis 01/31/2020 Hyponatremia 04/02/2019 Pulmonary hypertension 07/13/2018 BRCA1 gene mutation positive in female 8 Overview: Monoallenic mutation Personal history of breast cancer 01/14/2017 Nonrheumatic mitral valve regurgitation 12/30/19 17 Moderate tricuspid insufficiency 12/29/2016 Senile osteoporosis 06/29/2016 HTN, goal below 140/90 06/08/2016 Vitamin D deficiency 06/08/2016 documented as of this encounter (statuses as of 02/19/2023) Resolved Problems Problem Noted Date Diagnosed Date [...] as of this encounter (statuses as of 02/19/2023) Immunizations Name Administration Dates Next Due COVID-19 mRNA, LNP-s, No Pre serve, 2-Dose Series (Moderna) 08/30/2020,08/02/2020 COVID-19, mRNA, LNP-s, PF, B ooster, 100mcg/0.5mg (Moderna) 02/21/2021 DTaP Dipth/Tet/Acell Pertussis (Infanrix), Peds 01/13/2015 Pneumococcal Conjugate Vacc, 13 Valent (Prevnar) 05/22/2016 Pneumococcal Polysaccharide PPV23 (Pneumovax) 05/08/2016 SEASONAL INFLUENZA, PF, 6 M & Above, IM , (FLULAVAL or FLUZONE) 12/18/2020,11/13/2017,01/14/2017 Seasonal Influenza, Quadriva lent Hd (Fluzone Hd) 02/08/2023,12/24/2021 Seasonal Influenza, Split, I IV3, With Preserve, [...] oz pur e alcohol) 2 Beers daily PHQ-2 Answer Date Recorded PHQ-2 Score 1 02/07/2019 Hunger Vital Sign Answer Date Recorded Worried About Running Out of Food in the Last Ye ar Never true 02/07/2019 Ran Out of Food in the Last Year Never true 02/07/2019 Sex and Gender Information Value Date Recorded Sex Assigned at Female 03/30/2019 2:17 PM EST Gender Identity Female 03/30/2019 2:17 PM EST Sexual Orientation Straight 03/30/2019 2: 17 PM EST Job Start Date Occupation Industry Not on file Not on file Not on file documented as of this encounter Miscellaneous Notes * Telephone Encounter - Francheska Sheth OSA - 02/19/2023 9:35 AM EST [facility] Engagement Attempt Engagement: Engagement Attempt 1: Unable to contact Engagement Attempt 2: No data was found Home Information: No data was found Advance Care Planning (ACP): No data was found Has Living Will or Advance Directive: No data was found Anticipated Sub-Program: Focused Care Management (3-9 months) Confirmation of Sub-Program Type (by care logistics team leader): No data was found Handoff Information: Current care team notified via: No data was found Current telemonitoring equipment: No data was found Called lmom for call back: Ronnie: 03/02 AP Telemed: documented in this encounter Plan of Treatment Upcoming Encounters Date Type Department Care Team (Late st Contact Info) Description 02/19/2023 3:15 PM EST Scheduled Telephone [facility], [facility] [address] [facility] [place] [address] Coordinator, [facility] [address] [place] [address] 02/22/2023 10:30 AM EST Scheduled Telephone [facility], [facility] [address] [facility] [place] [address] Coordinator, [facility] [address] [facility] [place] [address] 04/06/2023 9:40 AM EST Office Visit Rheumatology [place] [id number] [place] [address] Kevin Ambriz MD [facility] [place] [address] 04/28/2023 1:20 PM EST Office Visit Family Practice [facility] [address] [facility] [place] [address] Marilyn West DO [address] [facility] [place] [address] Health Maintenance Due Date Last Done Comments Zoster Vaccines (1 of 2) 10/17/1997 DXA Scan 09/28/2019 09/27/2017, 06/19/2015 Depression Screening 02/08/2020 02/07/2019 FOBT ANNUALLY,AGES 18-90 12/16/2021 021, 04/14/2019, 02/15/2018, Additional history exists COVID-19 Vaccine ( season) 2022 02/21/2021, 08/30/2020, 08/02/2020 HbA1c 05/12/2023 05/12/2022, 01/03/2021 GFR 10/27/2023 10/26/2022, 01/14, 01/03/2021, Additional history exists DTaP,Tdap,and Td Vaccines (2 - Tdap) 01/13/2025 01/13/2015 Albumin/Creatinine Ratio 10/30/2025 10/30/2022 Pneumococcal Vaccine: 65+ Years Completed 05/22/2016, 05/08/2016 Fecal Occult Blood Test Discontinued 12/17/19, 04/14/2019, 02/15/2018, Additional history exists VITAMIN D LEVEL ONCE IN A LIFETIME-USE SMARTSET# [id number] Completed 05/12/2022, 01/03/2021, 06/27/2019, Additional history exists Influenza Vaccine (FLU shot) Completed 02/08/2023, 12/24/2021, 12/18/2020, Additional history exists Cologuard Discontinued Colonoscopy Discontinued [...] this encounter Medical Devices Implanted Type Area Metal Sprayer Production Device Identifier Shelf Expiration Date Model / Serial / Lot Lens 19.5 Mx60e - [id number] - [id number] Implanted:Qty: 1 on 12/21/2017 by Kenn Brown MD at OR [facility] Right: Eye [employer] 10/12/2020 [id number]-70.5 / [id number] / [id number] Lens 19.0 Mx60e - [id number] - [id number] Implanted:Qty: 1 on 01/06/2018 by Kenn Brown MD at OR [facility] Left: Eye [employer]OMB 11/12/2020 [id number]-15.0 / [id number] / documented as of this encounter Advance [...] and were consensually agreed upon. Care Teams Soil Science Professor Relationship Specialty Start Date End Date Marilyn West DO [address] [place] [address] PCP - General Family Medicine 11/09/22 documented as of this encounter
--- OUTSIDE RECORDS SUMMARY | 2023-03-04 06:07 | External Medical Summary | Summary of Care ---
Author Name Unknown Organization [facility] Address [address] [facility] [place] [address] Phone [phone] Care Team Providers Care Rocket Engine Mechanic Name Role Phone Marilyn West DO Primary Care Provider [phone] Reason for Visit * Reason Onset Date Comments [facility]: Maintenance 02/19/2023 Encounter Details Date Type Department Care Team (Late st Contact Info) Description 02/19/2023 Telephone [facility], [facility] [address] [facility] [place] [address] [facility], Nurse [facility] [address] [facility] [place] [address] [facility]: Maintenance Allergies Active Allergy Reactions Criticality Noted Date [...] 12/05/2021 Active Vitamin D (Ergocalciferol) 1.25 MG (45401 UT) Oral Capsule (Drisdol)Indications :Vitamin D deficiency [...] encounter Miscellaneous Notes * Telephone Encounter - Arianne Ha RN - 02/19/2023 3:32 PM EST Patient returning missed calls regarding enrollment to [facility] Patient states she is not interested at this time Advised her to call back if interested in the future Arianne aH RN, BSN [facility] agronomy advisorAgency Director documented in this encounter Plan of Treatment Upcoming Encounters Date Type Department Care Team (Late st Contact Info) Description 02/22/2023 10:30 AM EST Scheduled Telephone [facility], [facility] [address] [place] [address] Coordinator, [facility] [address] [place] [address] 04/06/2023 9:40 AM EST Office Visit Rheumatology [place] [address] [place] [address] Kevin Ambriz MD [address] [place] [address] 04/28/2023 1:20 PM EST Office Visit Family Practice [facility] [address] [place] [address] Marilyn West DO [address] [place] [address] Health Maintenance Due Date Last Done Comments [...] D LEVEL ONCE IN A LIFETIME-USE SMARTSET# [id number] Completed 05/12/2022, 01/03/2021, 06/27/2019, Additional history exists [...] this encounter Medical Devices Implanted Type Area Customer Accounts Advisor Device Identifier Shelf Expiration Date Model / Serial / Lot Lens 19.5 Mx60e - [id number] - [id number] Implanted:Qty: 1 on 12/21/2017 by Kenn Brown MD at OR [facility] Right: Eye [employer]OM[employer] 10/12/2020 [id number]-54.5 / [id number] / [id number] Lens 19.0 Mx60e - [id number] - [id number] Implanted:Qty: 1 on 01/06/2018 by Kenn Brown MD at OR [facility] Left: Eye [employer]OM[employer] 11/12/2020 [id number]-27.0 / [id number] / documented as of this encounter Advance [...] and were consensually agreed upon. Care Teams Rocket Engine Mechanic Relationship Specialty Start Date End Date Marilyn West DO [address] [place] [address] PCP - General Family Medicine 11/09/22 documented as of this encounter
--- OUTSIDE RECORDS SUMMARY | 2023-03-04 06:07 | External Medical Summary | Summary of Care ---
Author Name Unknown Organization [facility] Address [address] [facility] [place] [address] Phone [phone] Care Team Providers Care Laboratory Secretary Name Role Phone Marilyn West DO Primary Care Provider [phone] Reason for Visit * Reason Onset Date Comments Appointment 02/19/2023 Encounter Details Date Type Department Care Team (Late st Contact Info) Description 02/19/2023 3:15 PM EST Scheduled Telephone [facility], [facility] [address] [place] [address] Coordinator, [facility] [address] [place] [address] Allergies Active Allergy Reactions Criticality Noted Date Comments Dust Other (Please comment) High 10/02/2014 Fumes/odors documented as of this encounter (statuses as of 02/22/2023) Medications Medication Sig Dispensed Refills Start Date [...] 12/05/2021 Active Vitamin D (Ergocalciferol) 1.25 MG (07100 UT) Oral Capsule (Drisdol)Indications :Vitamin D deficiency [...] as of this encounter (statuses as of 02/22/2023) Active Problems Problem Noted Date Diagnosed Date [...] as of this encounter (statuses as of 02/22/2023) Resolved Problems Problem Noted Date Diagnosed Date [...] as of this encounter (statuses as of 02/22/2023) Immunizations Name Administration Dates Next Due COVID-19 [...] on file documented as of this encounter Plan of Treatment Upcoming Encounters Date Type Department Care Team (Late st Contact Info) Description 02/22/2023 10:30 AM EST Scheduled Telephone [facility], [facility] [address] [place] [address] Coordinator, [facility] [address] [place] [address] 04/06/2023 9:40 AM EST Office Visit Rheumatology [address] [place] [address] Kevin Ambriz MD [address] [employer] [place] [address] 04/28/2023 1:20 PM EST Office Visit Family Practice [facility] [address] [place] [address] Marilyn West, [address] [place] [address] Health Maintenance Due Date Last Done Comments [...] D LEVEL ONCE IN A LIFETIME-USE SMARTSET# 04889 Completed 05/12/2022, 01/03/2021, 06/27/2019, Additional history exists [...] this encounter Medical Devices Implanted Type Area Production Officer Device Identifier Shelf Expiration Date Model / Serial / Lot Lens 19.5 Mx60e - [id number] - [id number] Implanted:Qty: 1 on 12/21/2017 by Kenn Brown MD at OR [facility] Right: Eye BAUSCH & LOMB 10/12/2020 [id number]-87.5 / [id number] / [id number] Lens 19.0 Mx60e - [id number] - [id number] Implanted:Qty: 1 on 01/06/2018 by Kenn Brown MD at OR [facility] Left: Eye BAUSCH & LOMB 11/12/2020 [id number]-07.0 / [id number] / documented as of this encounter Advance [...] and were consensually agreed upon. Care Teams Laboratory Secretary Relationship Specialty Start Date End Date Marilyn West DO [address] [place] [address] PCP - General Family Medicine 11/09/22 documented as of this encounter
--- OUTSIDE RECORDS SUMMARY | 2023-03-04 06:07 | External Medical Summary | Summary of Care ---
Author Name Unknown Organization [facility] Address [address] [place] [address] Phone [phone] Care Team Providers Care Chief Risk Officer Name Role Phone Marilyn West DO Primary Care Provider [phone] Reason for Visit * Reason Onset Date Comments [facility]: Engagement 02/23/2023 Encounter Details Date Type Department Care Team ([facility] st Contact Info) Description 02/23/2023 Telephone [facility], [place] [address] [place] [address] [phone] Services, Scheduling [address] [place] [address] [facility]: Engagement Allergies Active Allergy Reactions Criticality Noted Date Comments Dust Other (Please comment) High 10/02/2014 Fumes/odors documented as of this encounter (statuses as of 02/23/2023) Medications Medication Sig Dispensed Refills Start Date [...] 12/05/2021 Active Vitamin D (Ergocalciferol) 1.25 MG (88383 UT) Oral Capsule (Drisdol)Indications :Vitamin D deficiency [...] as of this encounter (statuses as of 02/23/2023) Active Problems Problem Noted Date Diagnosed Date [...] as of this encounter (statuses as of 02/23/2023) Resolved Problems Problem Noted Date Diagnosed Date [...] as of this encounter (statuses as of 02/23/2023) Immunizations Name Administration Dates Next Due COVID-19 mRNA, LNP-s, No Pre serve, 2-Dose Series (Moderna) 08/30/2020,08/02/2020 COVID-19, mRNA, LNP-s, PF, B ooster, 100mcg/0.5mg (Moderna) 02/21/2021 DTaP Dipth/Tet/Acell Pertussis (Infanrix), Peds 01/13/2015 Pneumococcal Conjugate Vacc, 13 Valent (Prevnar) 05/22/2016 Pneumococcal Polysaccharide PPV23 (Pneumovax) 05/08/2016 Seasonal Influenza, PF, 6 M & above, IM , (FluLaval or Fluzone) 12/18/2020,11/13/2017,01/14/2017 Seasonal Influenza, Quadriva lent Hd (Fluzone [...] encounter Miscellaneous Notes * Telephone Encounter - Elise Flynn OSA - 02/23/2023 1:49 PM EST [facility] Enrollment Form Screening: Referral Source: No data was found Primary Reason for Referral (Select most relevant): No data was found Engagement: Engagement Attempt 1: No data was found Home Information: No data was found Advance Care Planning (ACP): No data was found Has Living Will or Advance Directive: No data was found Anticipated Sub-Program: No data was found Confirmation of Sub-Program Type (by care merchandise team manager): No data was found Handoff Information: Current care team notified via: No data was found Current telemonitoring equipment: No data was found Called and got ans machine that had full vm-scheduling a [facility] letter documented in this encounter Plan of Treatment Upcoming Encounters Date Type Department Care Team (Late st Contact Info) Description 02/23/2023 2:45 PM EST Scheduled Telephone [facility], [facility] [address] [place] [address] Coordinator, [facility] [address] [place] [address] 04/06/2023 9:40 AM EST Office Visit Rheumatology [place] [address] [employer] [place] [address] Kevin Ambriz MD [facility] [employer] [place] [address] 04/28/2023 1:20 PM EST Office Visit Family Practice [facility] [address] [place] [address] Marilyn West DO [address] [place] [address] Health Maintenance Due Date Last Done Comments Zoster Vaccines (1 of 2) 10/17/1997 DXA Scan 09/28/2019 09/27/2017, 06/19/2015 Depression Screening 02/08/2020 02/07/2019 FOBT ANNUALLY,AGES 18-90 12/16/2021 021, 04/14/2019, 02/15/2018, Additional history exists COVID-19 Vaccine ( - 2022- season) 2022 02/21/2021, 08/30/2020, 08/02/2020 HbA1c 05/12/2023 05/12/2022, 01/03/2021 GFR 10/27/2023 10/26/2022, 01/14, 01/03/2021, Additional history exists DTaP,Tdap,and Td Vaccines (2 - Tdap) 01/13/2025 01/13/2015 Albumin/Creatinine Ratio 10/30/2025 10/30/2022 Pneumococcal Vaccine: 65+ Years Completed 05/22/2016, 05/08/2016 Fecal Occult Blood Test Discontinued 12/17/19, 04/14/2019, 02/15/2018, Additional history exists VITAMIN D LEVEL ONCE IN A LIFETIME-USE SMARTSET# 07791 Completed 05/12/2022, 01/03/2021, 06/27/2019, Additional history exists [...] this encounter Medical Devices Implanted Type Area Pediatric Clinical Dietician Device Identifier Shelf Expiration Date Model / Serial / Lot Lens 19.5 Mx60e - [id number] - [id number] Implanted:Qty: 1 on 12/21/2017 by Kenn Brown MD at OR [facility] Right: Eye BAUSCH & LOMB 10/12/2020 [id number]-83.5 / [id number] / [id number] Lens 19.0 Mx60e - [id number] - [id number] Implanted:Qty: 1 on 01/06/2018 by Kenn Brown MD at OR [facility] Left: Eye BAUSCH & LOMB 11/12/2020 [id number]-87.0 / [id number] / documented as of this encounter Advance [...] and were consensually agreed upon. Care Teams Chief Risk Officer Relationship Specialty Start Date End Date Marilyn West DO [address] [place] [address] PCP - General Family Medicine 11/09/22 documented as of this encounter
--- OUTSIDE RECORDS SUMMARY | 2023-03-04 06:07 | External Medical Summary | Summary of Care ---
Author Name Unknown Organization [facility] Address [address] [facility] [place] [address] Phone [phone] Care Team Providers Care Golf Player Assistant Name Role Phone Marilyn West DO Primary Care Provider [phone] Reason for Visit * Reason Onset Date Comments [facility]: Maintenance 02/15/2023 Encounter Details Date Type Department Care Team (Late st Contact Info) Description 02/15/2023 Telephone [facility], [facility] [address] [place] [address] Winsome Trujillo, RN [address] [place] [address] [facility]: Maintenance Allergies Active Allergy [...] 12/05/2021 Active Vitamin D (Ergocalciferol) 1.25 MG (70517 UT) Oral Capsule (Drisdol)Indications :Vitamin D deficiency [...] nodes 08/19/2020 Malignant neoplasm of unspecified ovary 11/18/20 20 Malignant neoplasm of pelvis 01/31/2020 Gastro-esophageal [...] encounter Miscellaneous Notes * Telephone Encounter - Winsome Trujillo RN - 02/15/2023 10:03 AM EST [facility] patient for enrollment - please try to contact patient again to see if she would agree to [facility] services. Thank you! documented in this encounter Plan of Treatment Upcoming Encounters Date Type Department Care Team (Late st Contact Info) Description 02/22/2023 10:30 AM EST Scheduled Telephone [facility], [facility] [address] [place] [address] Coordinator, [facility] [address] [place] [address] 04/06/2023 9:40 AM EST Office Visit Rheumatology [place] [address] [employer] [place] [address] Kevin Ambriz MD [facility] [place] [address] 04/28/2023 1:20 PM EST Office Visit Family Practice [facility] [address] [place] [address] Marilyn West DO [address] [place] [address] Health Maintenance Due Date Last Done Comments [...] D LEVEL ONCE IN A LIFETIME-USE SMARTSET# 92701 Completed 05/12/2022, 01/03/2021, 06/27/2019, Additional history exists [...] this encounter Medical Devices Implanted Type Area Planning Assistant Device Identifier Shelf Expiration Date Model / Serial / Lot Lens 19.5 Mx60e - [id number] - [id number] Implanted:Qty: 1 on 12/21/2017 by Kenn Brown MD at OR [facility] Right: Eye BAUSCH & LOMB 10/12/2020 [id number]-76.5 / [id number] / [id number] Lens 19.0 Mx60e - [id number] - [id number] Implanted:Qty: 1 on 01/06/2018 by Kenn Brown MD at OR [facility] Left: Eye BAUSCH & LOMB 11/12/2020 TR63A-41.0 / [id number] / documented as of this encounter Advance [...] and were consensually agreed upon. Care Teams Golf Player Assistant Relationship Specialty Start Date End Date Marilyn West DO [address] [place] [address] PCP - General Family Medicine 11/09/22 documented as of this encounter
--- OUTSIDE RECORDS SUMMARY | 2023-03-04 06:07 | External Medical Summary | Summary of Care ---
Author Name Unknown Organization [facility] Address [address] [place] [address] Phone [phone] Care Team Providers Care Meat Curer Name Role Phone Marilyn West DO Primary Care Provider [phone] Reason for Visit * Reason Onset Date Comments Appointment 02/18/2023 Encounter Details Date Type Department Care Team ([facility] st Contact Info) Description 02/18/2023 Telephone [facility] [place], [place] [address] [place] [address] [phone] Services, Scheduling [address] [place] [address] Appointment (//) Allergies Active Allergy Reactions Criticality Noted Date Comments Dust Other (Please comment) High 10/02/2014 Fumes/odors documented as of this encounter (statuses as of 02/18/2023) Medications Medication Sig Dispensed Refills Start Date [...] 12/05/2021 Active Vitamin D (Ergocalciferol) 1.25 MG (39148 UT) Oral Capsule (Drisdol)Indications :Vitamin D deficiency [...] as of this encounter (statuses as of 02/18/2023) Active Problems Problem Noted Date Diagnosed Date [...] as of this encounter (statuses as of 02/18/2023) Resolved Problems Problem Noted Date Diagnosed Date [...] as of this encounter (statuses as of 02/18/2023) Immunizations Name Administration Dates Next Due COVID-19 [...] encounter Miscellaneous Notes * Telephone Encounter - Gerber Grimes OSA - 02/18/2023 3:15 PM EST [facility] Engagement Attempt Engagement: Engagement Attempt 1: Unable to contact Engagement Attempt 2: No data was found Home Information: No data was found Advance Care Planning (ACP): No data was found Has Living Will or Advance Directive: No data was found Anticipated Sub-Program: Focused Care Management (3-9 months) Confirmation of Sub-Program Type (by care deboning team leader): No data was found Handoff Information: Current care team notified via: No data was found Current telemonitoring equipment: No data was found 12/7-lmom for both pt and gus asking for call; dayami scclari, added FC, looking at: Ronnie 03/02 AP telemed documented in this encounter Plan of Treatment Upcoming Encounters Date Type Department Care Team (Late st Contact Info) Description 02/19/2023 3:15 PM EST Scheduled Telephone [facility], [facility] [address] [place] [address] Coordinator, [facility] [address] [place] [address] 04/06/2023 9:40 AM EST Office Visit Rheumatology [place] [address] [address] [place] [address] Kevin Ambriz MD [facility] [employer] [place] [address] 04/28/2023 1:20 PM EST Office Visit Family Practice [facility] [address] [place] [address] Marilyn West DO [address] [place] [address] Health Maintenance Due Date Last Done Comments Zoster Vaccines (1 of 2) 10/17/1997 DXA Scan 09/28/2019 09/27/2017, 06/19/2015 Depression Screening 02/08/2020 02/07/2019 FOBT ANNUALLY,AGES 18-90 12/16/2021 021, 04/14/2019, 02/15/2018, Additional history exists COVID-19 Vaccine (2022- season) 2022 02/21/2021, 08/30/2020, 08/02/2020 HbA1c 05/12/2023 05/12/2022, 01/03/2021 GFR 10/27/2023 10/26/2022, 01/14, 01/03/2021, Additional history exists DTaP,Tdap,and Td Vaccines (2 - Tdap) 01/13/2025 01/13/2015 Albumin/Creatinine Ratio 10/30/2025 10/30/2022 Pneumococcal Vaccine: 65+ Years Completed 05/22/2016, 05/08/2016 Fecal Occult Blood Test Discontinued 12/17/19, 04/14/2019, 02/15/2018, Additional history exists VITAMIN D LEVEL ONCE IN A LIFETIME-USE SMARTSET# 83935 Completed 05/12/2022, 01/03/2021, 06/27/2019, Additional history exists [...] this encounter Medical Devices Implanted Type Area Coil Builder Device Identifier Shelf Expiration Date Model / Serial / Lot Lens 19.5 Mx60e - [id number] - [id number] Implanted:Qty: 1 on 12/21/2017 by Kenn Brown MD at OR [facility] Right: Eye BAUSCH & LOMB 10/12/2020 [id number]-56.5 / [id number] / [id number] Lens 19.0 Mx60e - [id number] - [id number] Implanted:Qty: 1 on 01/06/2018 by Kenn Brown MD at OR [facility] Left: Eye BAUSCH & LOMB 11/12/2020 FZ15K-90.0 / [id number] / documented as of this encounter Advance [...] and were consensually agreed upon. Care Teams Meat Curer Relationship Specialty Start Date End Date Marilyn West DO [address] [place] [address] PCP - General Family Medicine 11/09/22 documented as of this encounter
--- OUTSIDE RECORDS SUMMARY | 2023-03-04 06:07 | External Medical Summary | Summary of Care ---
Author Name Unknown Organization [facility] Address [address] [facility] [place] [address] Phone [phone] Care Team Providers Care Weigh Tank Operator Name Role Phone Marilyn West DO Primary Care Provider +[phone] Reason for Visit * Reason Onset Date Comments [facility]: Engagement 02/23/2023 Encounter Details Date Type Department Care Team (Late st Contact Info) Description 02/23/2023 2:45 PM EST Scheduled Telephone [facility] [address] [place] [address] Coordinator, [facility] [address] [place] [address] Allergies Active Allergy Reactions Criticality Noted Date Comments Dust Other (Please comment) High 10/02/2014 Fumes/odors documented as of this encounter (statuses as of 02/26/2023) Medications Medication Sig Dispensed Refills Start Date [...] 12/05/2021 Active Vitamin D (Ergocalciferol) 1.25 MG (77740 UT) Oral Capsule (Drisdol)Indications :Vitamin D deficiency [...] as of this encounter (statuses as of 02/26/2023) Active Problems Problem Noted Date Diagnosed Date [...] as of this encounter (statuses as of 02/26/2023) Resolved Problems Problem Noted Date Diagnosed Date [...] as of this encounter (statuses as of 02/26/2023) Immunizations Name Administration Dates Next Due COVID-19 [...] encounter Miscellaneous Notes * Telephone Encounter - Tarah Morgan LPN - 02/26/2023 11:10 AM EST Please see other telephone encounter from today documented in this encounter Plan of Treatment Upcoming Encounters Date Type Department Care Team (Late st Contact Info) Description 04/06/2023 9:40 AM EST Office Visit Rheumatology [address] [place] [address] Kevin Ambriz MD [address] [employer] [place] [address] 04/28/2023 1:20 PM EST Office Visit Family Practice [facility] [address] [place] [address] Marilyn West, [address] [place] [address] Health Maintenance Due Date Last Done Comments [...] D LEVEL ONCE IN A LIFETIME-USE SMARTSET# 35260 Completed 05/12/2022, 01/03/2021, 06/27/2019, Additional history exists [...] this encounter Medical Devices Implanted Type Area Frame Gate Mortiser Operator Device Identifier Shelf Expiration Date Model / Serial / Lot Lens 19.5 Mx60e - [id number] - [id number] Implanted:Qty: 1 on 12/21/2017 by Kenn Brown MD at OR [facility] Right: Eye BAUSCH & LOMB 10/12/2020 [id number]-07.5 / [id number] / [id number] Lens 19.0 Mx60e - [id number] - [id number] Implanted:Qty: 1 on 01/06/2018 by Kenn Brown MD at OR [facility] Left: Eye BAUSCH & LOMB 11/12/2020 JX83W-54.0 / [id number] / documented as of this encounter Advance [...] and were consensually agreed upon. Care Teams Weigh Tank Operator Relationship Specialty Start Date End Date Marilyn West DO [address] [place] [address] PCP - General Family Medicine 11/09/22 documented as of this encounter
--- OUTSIDE RECORDS SUMMARY | 2023-03-04 06:08 | External Medical Summary | Summary of Care ---
Author Name Unknown Organization [facility] Address [address] [place] [address] Phone [phone] Care Team Providers Care Sales And Marketing Agent Name Role Phone Marilyn West DO Primary Care Provider +03-22 [phone] Reason for Visit * Reason Onset Date Comments Appointment 02/17/2023 Encounter Details Date Type Department Care Team ([facility] st Contact Info) Description 02/17/2023 Telephone [facility], [facility] [address] [facility] [place] [address] Services, Scheduling [address] [place] [address] Appointment (/) Allergies Active Allergy Reactions Criticality Noted Date Comments Dust Other (Please comment) High 10/02/2014 Fumes/odors documented as of this encounter (statuses as of 02/17/2023) Medications Medication Sig Dispensed Refills Start Date [...] 12/05/2021 Active Vitamin D (Ergocalciferol) 1.25 MG (88273 UT) Oral Capsule (Drisdol)Indications :Vitamin D deficiency [...] as of this encounter (statuses as of 02/17/2023) Active Problems Problem Noted Date Diagnosed Date [...] as of this encounter (statuses as of 02/17/2023) Resolved Problems Problem Noted Date Diagnosed Date [...] as of this encounter (statuses as of 02/17/2023) Immunizations Name Administration Dates Next Due COVID-19 [...] Telephone Encounter - Francheska Sheth OSA - 02/17/2023 2:50 PM EST Per Request via RN advised they were [facility] patient for enrollment - please try to contact patient again to see if she would agree to [facility] services. Called lmom to see if they would still like [facility]. documented in this encounter Plan of Treatment Upcoming Encounters Date Type Department Care Team (Late st Contact Info) Description 04/06/2023 9:40 AM EST Office Visit Rheumatology [address] [place] [address] Kevin Ambriz MD [address] [place], [place] [address] 04/28/2023 1:20 PM EST Office Visit Family Practice [facility] [address] [place] [address] Marilyn West, [address] [place] [address] Health Maintenance Due Date Last Done Comments [...] D LEVEL ONCE IN A LIFETIME-USE SMARTSET# 09012 Completed 05/12/2022, 01/03/2021, 06/27/2019, Additional history exists [...] this encounter Medical Devices Implanted Type Area Financial Service Rep Device Identifier Shelf Expiration Date Model / Serial / Lot Lens 19.5 Mx60e - [id number] - [id number] Implanted:Qty: 1 on 12/21/2017 by Kenn Brown MD at OR [facility] Right: Eye BAUSCH & LOMB 10/12/2020 VR83N-82.5 / [id number] / [id number] Lens 19.0 Mx60e - [id number] - [id number] Implanted:Qty: 1 on 01/06/2018 by Kenn Brown MD at OR [facility] Left: Eye BAUSCH & LOMB 11/12/2020 MF48K-70.0 / [id number] / documented as of this encounter Advance [...] and were consensually agreed upon. Care Teams Sales And Marketing Agent Relationship Specialty Start Date End Date Marilyn West DO [address] [place] [address] PCP - General Family Medicine 11/09/22 documented as of this encounter
[2023-03-04 06:16] LABS: BUN Creatinine Ratio 53.8 (10-20); Calcium 8.3 mg/dl (8.6-10.3); Creatinine Clr Calc Pharmacy 63.8 ml/min; Est GFR (African American) 108.3 ml/min; Est GFR (Non-African American) 93.5 ml/min; Magnesium 1.4 mg/dl (1.7-2.4); Potassium 3.1 mmol/L (3.5-5.1)
[2023-03-04 06:26] LABS: Troponin I High Sensitivity 39.8 pg/ml (0-14)
[2023-03-04] MEDS ORDERED: amLODIPine BESYLATE 5 MG TAB PO ONE (07:20)
--- NOTE | 2023-03-04 07:34 | XRay Report ---
XR chest 1V portable HISTORY: weakness COMPARISON: Chest 01/16/2023. FINDINGS: A left jugular Port-A-Cath terminates in the SVC. The heart remains enlarged. Trace bilater al pleural effusions. Mild central pulmonary vascular congestion without overt edema. There are calci fications within the aortic knob. No focal lung consolidations to suggest pneumonia. No acute fractur es. IMPRESSION: Cardiomegaly with mild pulmonary vascular congestion and trace bilateral pleural effusions. ACT 112: Negative or not required by law. Electronically signed by: Matt Umanzor M.D. 03/04/2023 7:32 AM
[2023-03-04] MEDS: VALSARTAN/SACUBITRIL 103/97MG TAB PO SCH ×2 (08:33→21:01)
[2023-03-04] MEDS: carvediloL 25 MG TAB PO SCH ×2 (08:33→20:58)
[2023-03-04] MEDS: MAGNESIUM SULFATE / D5W 1 GM/100 ML BAG IV SCH ×2 (09:02→10:44)
[2023-03-04 09:24] LABS: Phosphorus 2.8 mg/dl (2.5-4.9)
[2023-03-04] MEDS: MAGNESIUM OXIDE 400 MG TAB PO SCH (09:25)
[2023-03-04] MEDS: POTASSIUM CHLORIDE CRTAB 20 MEQ TABCR PO SCH (09:25)
[2023-03-04] MEDS: CYANOCOBALAMIN (B-12) 500 MCG TABLET PO SCH (09:25)
[2023-03-04] MEDS: PANTOprazole 40 MG TAB PO SCH ×2 (09:25→20:58)
--- NOTE | 2023-03-04 12:47 | Hospitalist Progress Note ---
Date of Service March 04, 2023 Assessment & Plan (1) Weakness: Plan: 77-year-old female with past medical significant for prediabetes, hyperlipidemia, pulmonary hypertension, chronic systolic CHF, hypertension, moderate to severe mitral regurgitation, moderate tricuspid insufficiency, chronic pulmonary embolism, vitamin D deficiency, GERD, osteoporosis, history of hyponatremia, history of BRCA gene mutation, bilateral breast cancer s/p surgery, chemo and radiation, metastatic ovarian cancer s/p debulking surgery, radiation and chemotherapy and supposed to be on Lynparza but currently not taking as per patient and has appointment with heme-onc on March 10 as per patient(as per PCP notes PET scan showing areas in the rectum) comes because of weakness. Poor appetite, ambulatory dysfunction not feeling well. Found to have UTI and RSV. Weakness Ambulatory dysfunction Increasing weakness is most likely from UTI and RSV and hypokalemia Remains otherwise stable without any other significant symptoms Will get PT and OT evaluation Hypertension-noted to be very high at systolic more than 200 at some point On Coreg and Entresto IV labetalol as needed and received intravenous hydralazine as needed placed on nitropaste for persistent elevated BP which was increased to 1 inch to 6 hourly Amlodipine 5 mg was added Blood pressure seems to be stable at 129/65 Will discontinue Nitropaste Electrolyte imbalance Hypokalemia and hypomagnesemia Likely secondary to poor appetite Will give replacement and monitor UTI In January she was admitted for UTI and was discharged on Augmentin Recurrent UTI Will place on Invanz until the cultures are available RSV Supportive care Droplet precautions Does not have any cough and/or shortness of breath at rest Chronic systolic CHF Moderate to severe mitral regurgitation Echo done in January 2023 EF of 40 to 45% Continue Coreg and Entresto Getting gentle fluids Monitor for volume overload Mild elevation troponin Left bundle branch block Left bundle branch block was present once in EKG of July 23, 2021 Denies any chest pain We will follow serial enzymes and echo Serial troponins are unremarkable for any ACS Chronic pulmonary embolism On Eliquis Hyperlipidemia On statin GERD Protonix History of bilateral breast cancer BRCA gene positive S/p surgery and chemoradiation History of ovarian cancer metastatic S/p debulking surgery and chemoradiation Seems has an appointment on March 10 DVT prophylaxis On Eliquis Disposition Med/tele Full code Admission and Anticipated Discharge Date Admission Date: March 03, 2023 Subjective 03/04/2023 The patient was seen and examined in medical telemetry unit She has been complaining of generalized weakness but does not have any acute symptoms Denies any chest pain, palpitation or shortness of breath No abdominal pain but has discomfort and no nausea and or vomiting Review of Systems Review of Systems: All systems reviewed and are unremarkable except as noted below Musculoskeletal: Generalized weakness without any acute arthritis Physical Exam Physical Exam: Lying in bed comfortably Constitutional: + ill appearing and + thin Eyes: PERRL, conjunctivae normal, anicteric sclerae ENMT: external ear and nose normal, oropharynx normal Neck: trachea midline, no thyromegaly Respiratory: no respiratory distress Auscultation: lungs clear to auscultation bilaterally and + diminished lung sounds Cardiovascular: Rate/Rhythm: regular rate and regular rhythm; not tachycardic Heart Sounds: normal S1, normal S2 and + murmur (2/6 ESM over precordium) Extremities: no edema Gastrointestinal (Abdomen): Inspection/Auscultation: normal bowel sounds; abdomen not distended Percussion/Palpation: + abdomen tender (Mildly tender all over without guarding and no rigidity) and abdomen soft Musculoskeletal: No acute arthritis involving any of the joint Neurologic: normal touch/pain/proprioception and moves all extremities; no focal motor deficits Lymphatic: no cervical or axillary lymphadenopathy Results & Data Results & Data Vital Signs (Past 12 Hours) Vital Signs Temp Pulse Pulse Resp BP BP BP 03/04/23 12:20 36.3 C L 62 16 129/65 03/04/23 10:11 145/68 H 03/04/23 09:24 172/76 H 03/04/23 08:58 203/90 H 03/04/23 08:10 36.2 C L 72 16 205/99 H 03/04/23 07:57 67 03/04/23 07:41 198/88 H 03/04/23 06:40 189/86 H 03/04/23 05:27 178/75 H 03/04/23 05:08 64 187/91 H 03/04/23 04:50 71 200/97 H 03/04/23 03:49 66 18 195/87 H 03/04/23 03:00 182/86 H 03/04/23 02:11 69 187/99 H 03/04/23 01:57 75 03/04/23 01:30 03/04/23 01:15 73 03/04/23 01:02 36.1 C L 73 22 192/101 H Pulse Ox O2 Del Method O2 Flow Rate 03/04/23 12:20 90 Room Air 03/04/23 10:11 03/04/23 09:24 03/04/23 08:58 03/04/23 08:10 95 Room Air 03/04/23 07:57 03/04/23 07:41 03/04/23 06:40 03/04/23 05:27 03/04/23 05:08 03/04/23 04:50 03/04/23 03:49 96 Nasal Cannula 2 03/04/23 03:00 03/04/23 02:11 03/04/23 01:57 03/04/23 01:30 Nasal Cannula 2 03/04/23 01:15 03/04/23 01:02 99 Nasal Cannula 2 Laboratory Results Short CBC 03/03/23 03/04/23 Range/Units 19:37 05:24 WBC 5.48 5.22 (4.8-10.8) K/ul Hgb 11.4 L 10.5 L (12.0-16.0) g/dl Hct 36.2 L 33.1 L (37.0-47.0) % Plt Count 238 180 (130-400) K/uL BMP 03/03/23 03/04/23 19:37 05:24 Sodium 145 145 Potassium 2.9 L 3.1 L Chloride 104 108 H Carbon Dioxide 28 25 BUN 34 H 28 H Creatinine 0.61 0.52 L Glucose 103 H 128 H Calcium 9.6 8.3 L Liver Function 03/03/23 Range/Units 19:37 Total Bilirubin 1.3 H (0.2-1.0) mg/dl AST 39 (13-39) U/L ALT 37 (7-52) U/L Alkaline Phosphatase 133 H (34-104) U/L Albumin 4.2 (3.4-5.0) gm/dl Urine 03/03/23 Range/Units 19:37 Urine Color Yellow Urine Appearance Cloudy A (Clear) Urine pH 6.0 (4.5-7.5) Ur Specific [place] 1.020 (1.000-1.030) Urine Protein 3+ H (Negative) Urine Glucose (UA) Negative (Negative) Medications Administered Current Inpatient Medications Acetaminophen (Acetaminophen 325 Mg Tab) 650 mg PO Q4H PRN PRN Reason: Pain or Fever Stop: 04/03/23 00:57 Amlodipine Besylate (Amlodipine Besylate 5 Mg Tab) 5 mg PO QAM [facility] Stop: 04/04/23 08:59 Apixaban (Apixaban 5 Mg Tablet) 5 mg PO BID [facility] Stop: 04/03/23 00:57 Last Admin: 03/04/23 08:32 Dose: 5 mg Atorvastatin Calcium (Atorvastatin 10 Mg Tab) 10 mg PO HS [facility] Stop: 04/03/23 20:59 Carvedilol (Carvedilol 25 Mg Tab) 25 mg PO BID [facility] Stop: 04/03/23 08:59 Last Admin: 03/04/23 08:33 Dose: 25 mg Cyanocobalamin (Cyanocobalamin (B-12) 500 Mcg Tablet) 500 mcg PO DAILY [facility] Stop: 04/03/23 08:59 Last Admin: 03/04/23 09:25 Dose: 500 mcg Ertapenem 1,000 mg/ Syringe 10 mls @ 2 mls/min IV Q24H [facility] Stop: 03/14/23 01:59 Last Admin: 03/04/23 02:02 Dose: 2 mls/min Labetalol HCl (Labetalol Hcl Iv 5 Mg/Ml 20ml) 10 mg IV Q4H PRN PRN Reason: Hypertension Stop: 04/03/23 00:57 Magnesium Oxide (Magnesium Oxide 400 Mg Tab) 400 mg PO DAILY [facility] Stop: 04/03/23 08:59 Last Admin: 03/04/23 09:25 Dose: 400 mg Melatonin (Melatonin 3 Mg Tab) 4.5 mg PO HS PRN PRN Reason: sleep Mirtazapine (Mirtazapine Tab 15 Mg Tab) 7.5 mg PO HS [facility] Stop: 04/03/23 20:59 Nitroglycerin (Nitroglycerin Sl 0.4 Mg/Tab Tab) 0.4 mg SL Q5M PRN PRN Reason: Chest Pain Stop: 04/03/23 00:57 Pantoprazole Sodium (Pantoprazole 40 Mg Tab) 40 mg PO BID [facility] Stop: 04/03/23 08:59 Last Admin: 03/04/23 09:25 Dose: 40 mg Potassium Chloride (Potassium Chloride Crtab 20 Meq Tabcr) 20 meq PO DAILY [facility] Stop: 04/03/23 08:59 Last Admin: 03/04/23 09:25 Dose: 20 meq Sacubitril/Valsartan (Valsartan/Sacubitril 103/97mg Tab) 1 tab PO BID [facility] Stop: 04/03/23 08:59 Last Admin: 03/04/23 08:33 Dose: 1 tab
--- NOTE | 2023-03-04 16:50 | XCELERA ---
[id number]
[2023-03-04] MEDS: MELATONIN 3 MG TAB PO PRN (20:57)
[2023-03-04] MEDS: MIRTAZAPINE TAB 15 MG TAB PO SCH (20:58)
[2023-03-04] MEDS: ATORVASTATIN 10 MG TAB PO SCH (20:58)
[2023-03-05] MEDS: ERTAPENEM SODIUM 1,000 MG in SYRINGE 0 ML IV SCH (03:56)
[2023-03-05 08:10] LABS: Basophils # (auto) 0.01 K/uL (0.00-0.20); Basophils % (auto) 0.2 %; Eosinophils # (auto) 0.05 K/uL (0.00-0.50); Eosinophils % (auto) 0.9 %; Hemoglobin 11.5 g/dl (12.0-16.0); Immature Granulocytes # (auto) 0.03 K/uL (0.01-0.20); Immature Granulocytes % (auto) 0.5 %; Lymphocytes # (auto) 0.61 K/uL (1.20-3.40); Lymphocytes % (auto) 10.5 %; Mean Corpuscular Hemoglobin 36.1 pg (25.0-34.0); Mean Corpuscular Hgb Conc 32.9 g/dL (32.0-36.0); Mean Corpuscular Volume 109.7 fL (80.0-100.0); Mean Platelet Volume 10.4 fL (9.4-12.4); Monocytes # (auto) 0.55 K/uL (0.11-0.59); Monocytes % (auto) 9.5 %; Neutrophils # (auto) 4.55 K/uL (1.40-6.50); Neutrophils % (auto) 78.4 %; Nucleated RBC # (auto) 0.02 K/uL (0.00-0.12); Nucleated RBC % (auto) 0.3 %; Platelet Count 194 K/uL (130-400); RDW Coefficient of Variation 17.5 % (11.5-14.5); RDW Standard Deviation 71.3 fL (36.4-46.3); Red Blood Count 3.19 M/uL (4.20-5.40)
[2023-03-05 08:40] LABS: BUN Creatinine Ratio 25.6 (10-20); Calcium 8.2 mg/dl (8.6-10.3); Creatinine Clr Calc Pharmacy 82.8 ml/min; Est GFR (African American) 119.1 ml/min; Est GFR (Non-African American) 102.7 ml/min; Magnesium 1.4 mg/dl (1.7-2.4); Potassium 2.4 mmol/L (3.5-5.1)
[2023-03-05] MEDS ORDERED: POTASSIUM CHLORIDE CRTAB 20 MEQ TABCR PO STA (08:47)
[2023-03-05] MEDS: VALSARTAN/SACUBITRIL 103/97MG TAB PO SCH ×2 (09:07→19:29)
[2023-03-05] MEDS: APIXABAN 5 MG TABLET PO SCH ×2 (09:08→19:29)
[2023-03-05] MEDS: POTASSIUM CHLORIDE CRTAB 20 MEQ TABCR PO SCH (09:08)
[2023-03-05] MEDS: MAGNESIUM OXIDE 400 MG TAB PO SCH (09:08)
[2023-03-05] MEDS: carvediloL 25 MG TAB PO SCH ×2 (09:08→19:30)
[2023-03-05] MEDS: PANTOprazole 40 MG TAB PO SCH ×2 (09:08→19:29)
[2023-03-05] MEDS: CYANOCOBALAMIN (B-12) 500 MCG TABLET PO SCH (09:08)
[2023-03-05] MEDS: amLODIPine BESYLATE 5 MG TAB PO SCH (09:09)
[2023-03-05] MEDS: MAGNESIUM SULFATE / D5W 1 GM/100 ML BAG IV SCH ×2 (09:18→11:09)
[2023-03-05] MEDS: POTASSIUM CHLORIDE / WTR 10 MEQ/100 ML PLCT IV SCH ×2 (09:18→10:14)
[2023-03-05] MEDS: ACETAMINOPHEN 325 MG TAB PO PRN ×2 (12:00→19:33)
--- NOTE | 2023-03-05 14:37 | Hospitalist Progress Note ---
Date of Service March 05, 2023 Assessment & Plan (1) Weakness: Plan: 77-year-old female with past medical significant for prediabetes, hyperlipidemia, pulmonary hypertension, chronic systolic CHF, hypertension, moderate to severe mitral regurgitation, moderate tricuspid insufficiency, chronic pulmonary embolism, vitamin D deficiency, GERD, osteoporosis, history of hyponatremia, history of BRCA gene mutation, bilateral breast cancer s/p surgery, chemo and radiation, metastatic ovarian cancer s/p debulking surgery, radiation and chemotherapy and supposed to be on Lynparza but currently not taking as per patient and has appointment with heme-onc on March 10 as per patient(as per PCP notes PET scan showing areas in the rectum) comes because of weakness. Poor appetite, ambulatory dysfunction not feeling well. Found to have UTI and RSV. Weakness Ambulatory dysfunction Increasing weakness is most likely from UTI and RSV and hypokalemia Remains otherwise stable without any other significant symptoms Will get PT and OT evaluation-awaiting PT and OT evaluation Has been feeling a little better Hypertensive emergency Hypertension-noted to be very high at systolic more than 200 at some point On Coreg and Entresto IV labetalol as needed and received intravenous hydralazine as needed placed on nitropaste for persistent elevated BP which was increased to 1 inch to 6 hourly Amlodipine 5 mg was added Blood pressure seems to be stable at 129/65 Will discontinue Nitropaste Blood pressure has been stable Electrolyte imbalance Hypokalemia and hypomagnesemia Likely secondary to poor appetite Will give replacement and monitor Has been getting supplement and will monitor Family advised to eat and drink little bit more UTI In January she was admitted for UTI and was discharged on Augmentin Recurrent UTI Will place on Invanz until the cultures are available Urine is growing Klebsiella pneumoniae and which is pansensitive RSV Supportive care Droplet precautions Does not have any cough and/or shortness of breath at rest Chronic systolic CHF Moderate to severe mitral regurgitation Echo done in January 2023 EF of 40 to 45% Continue Coreg and Entresto Getting gentle fluids Monitor for volume overload-no signs and or symptoms of fluid overload Mild elevation troponin-secondary to demand ischemia Left bundle branch block Left bundle branch block was present once in EKG of July 23, 2021 Denies any chest pain We will follow serial enzymes and echo Serial troponins are unremarkable for any ACS Chronic pulmonary embolism On Eliquis Hyperlipidemia On statin GERD Protonix History of bilateral breast cancer BRCA gene positive S/p surgery and chemoradiation History of ovarian cancer metastatic S/p debulking surgery and chemoradiation Seems has an appointment on March 10 DVT prophylaxis On [facility] Med/tele Full code Admission and Anticipated Discharge Date Admission Date: March 03, 2023 Subjective 03/04/2023 The patient was seen and examined in medical telemetry unit She has been complaining of generalized weakness but does not have any acute sy mptoms Denies any chest pain, palpitation or shortness of breath No abdominal pain but has discomfort and no nausea and or vomiting 03/05/2023 The patient was seen and examined in medical telemetry unit She has been complaining of abdominal discomfort and thinks that she has infection in the abdomen which has been ongoing No distention of the abdomen, no nausea and/or vomiting and she has been moving her bowel Remains generally weak and lethargic She has not been eating or drinking enough Review of Systems Review of Systems: All systems reviewed and are unremarkable except as noted below Musculoskeletal: Generalized weakness without any acute arthritis Physical Exam Physical Exam: Lying in bed comfortably Constitutional: + ill appearing and + thin Eyes: PERRL, conjunctivae normal, anicteric sclerae ENMT: external ear and nose normal, oropharynx normal Neck: trachea midline, no thyromegaly Respiratory: no respiratory distress Auscultation: lungs clear to auscultation bilaterally and + diminished lung sounds Cardiovascular: Rate/Rhythm: regular rate and regular rhythm; not tachycardic Heart Sounds: normal S1, normal S2 and + murmur (2/6 ESM over precordium) Extremities: no edema Gastrointestinal (Abdomen): Inspection/Auscultation: normal bowel sounds; abdomen not distended Percussion/Palpation: + abdomen tender (Mildly tender all over without guarding and no rigidity) and abdomen soft Musculoskeletal: No acute arthritis involving any of the joints Neurologic: normal touch/pain/proprioception and moves all extremities; no focal motor deficits Lymphatic: no cervical or axillary lymphadenopathy Results & Data Results & Data Vital Signs (Past 12 Hours) Vital Signs Temp Pulse Pulse Resp BP BP Pulse Ox 03/05/23 11:55 36.7 C 73 16 149/71 H 90 03/05/23 08:30 03/05/23 07:52 36.7 C 60 14 168/64 H 91 03/05/23 06:50 59 L 03/05/23 04:57 36.8 C 61 17 169/76 H 91 O2 Del Method 03/05/23 11:55 Room Air 03/05/23 08:30 Room Air 03/05/23 07:52 Room Air 03/05/23 06:50 03/05/23 04:57 Room Air Laboratory Results Short CBC 03/05/23 Range/Units 07:37 WBC 5.80 (4.8-10.8) K/ul Hgb 11.5 L (12.0-16.0) g/dl Hct 35.0 L (37.0-47.0) % Plt Count 194 (130-400) K/uL BMP 03/05/23 07:37 Sodium 139 Potassium 2.4 L* D Chloride 100 Carbon Dioxide 30 BUN 10 Creatinine 0.39 L Glucose 102 H Calcium 8.2 L Medications Administered Current Inpatient Medications Acetaminophen (Acetaminophen 325 Mg Tab) 650 mg PO Q4H PRN PRN Reason: Pain or Fever Stop: 04/03/23 00:57 Last Admin: 03/05/23 12:00 Dose: 650 mg Amlodipine Besylate (Amlodipine Besylate 5 Mg Tab) 5 mg PO QAM [facility] Stop: 04/04/23 08:59 Last Admin: 03/05/23 09:09 Dose: 5 mg Apixaban (Apixaban 5 Mg Tablet) 5 mg PO BID [facility] Stop: 04/03/23 00:57 Last Admin: 03/05/23 09:08 Dose: 5 mg Atorvastatin Calcium (Atorvastatin 10 Mg Tab) 10 mg PO HS [facility] Stop: 04/03/23 20:59 Last Admin: 03/04/23 20:58 Dose: 10 mg Carvedilol (Carvedilol 25 Mg Tab) 25 mg PO BID [facility] Stop: 04/03/23 08:59 Last Admin: 03/05/23 09:08 Dose: 25 mg Cyanocobalamin (Cyanocobalamin (B-12) 500 Mcg Tablet) 500 mcg PO DAILY [facility] Stop: 04/03/23 08:59 Last Admin: 03/05/23 09:08 Dose: 500 mcg Ertapenem 1,000 mg/ Syringe 10 mls @ 2 mls/min IV Q24H [facility] Stop: 03/14/23 01:59 Last Admin: 03/05/23 03:56 Dose: 2 mls/min Labetalol HCl (Labetalol Hcl Iv 5 Mg/Ml 20ml) 10 mg IV Q4H PRN PRN Reason: Hypertension Stop: 04/03/23 00:57 Magnesium Oxide (Magnesium Oxide 400 Mg Tab) 400 mg PO DAILY [facility] Stop: 04/03/23 08:59 Last Admin: 03/05/23 09:08 Dose: 400 mg Melatonin (Melatonin 3 Mg Tab) 4.5 mg PO HS PRN PRN Reason: sleep Last Admin: 03/04/23 20:57 Dose: 4.5 mg Mirtazapine (Mirtazapine Tab 15 Mg Tab) 7.5 mg PO HS [facility] Stop: 04/03/23 20:59 Last Admin: 03/04/23 20:58 Dose: 7.5 mg Nitroglycerin (Nitroglycerin Sl 0.4 Mg/Tab Tab) 0.4 mg SL Q5M PRN PRN Reason: Chest Pain Stop: 04/03/23 00:57 Pantoprazole Sodium (Pantoprazole 40 Mg Tab) 40 mg PO BID [facility] Stop: 04/03/23 08:59 Last Admin: 03/05/23 09:08 Dose: 40 mg Potassium Chloride (Potassium Chloride Crtab 20 Meq Tabcr) 20 meq PO DAILY [facility] Stop: 04/03/23 08:59 Last Admin: 03/05/23 09:08 Dose: 20 meq Sacubitril/Valsartan (Valsartan/Sacubitril 103/97mg Tab) 1 tab PO BID [facility] Stop: 04/03/23 08:59 Last Admin: 03/05/23 09:07 Dose: 1 tab
[2023-03-05] MEDS: MIRTAZAPINE TAB 15 MG TAB PO SCH (19:29)
[2023-03-05] MEDS: ATORVASTATIN 10 MG TAB PO SCH (19:29)
[2023-03-05] MEDS: MELATONIN 3 MG TAB PO PRN (19:33)
--- NOTE | 2023-03-05 21:51 | Electrocardiogram Report ---
Test Reason : Blood Pressure : / mmHG Vent. Rate : 081 BPM Atrial Rate : 081 BPM P-R Int : 130 ms QRS Dur : 122 ms QT Int : 432 ms P-R-T Axes : 081 -55 113 degrees QTc Int : 501 ms Sinus rhythm with Premature supraventricular complexes Possible Left atrial enlargement Left axis deviation Non-specific intra-ventricular conduction block Septal infarct Abnormal ECG When compared with ECG of 18-JAN-2023 06:32, Premature supraventricular complexes are now Present Reconfirmed by Pato Cabral ([id number]) on 03/05/2023 9:51:05 PM Referred By: REFERRED SELF Confirmed By:Pato Cabral
[2023-03-06] MEDS: ceFAZolin 2000MG 2,000 MG/15 ML SYR IV SCH ×3 (05:41→21:02)
[2023-03-06 09:07] LABS: Basophils # (auto) 0.01 K/uL (0.00-0.20); Basophils % (auto) 0.2 %; Eosinophils # (auto) 0.02 K/uL (0.00-0.50); Eosinophils % (auto) 0.5 %; Hematocrit (blood only) 34.2 % (37.0-47.0); Hemoglobin 11.2 g/dl (12.0-16.0); Immature Granulocytes # (auto) 0.01 K/uL (0.01-0.20); Immature Granulocytes % (auto) 0.2 %; Lymphocytes # (auto) 0.48 K/uL (1.20-3.40); Lymphocytes % (auto) 10.9 %; Mean Corpuscular Hemoglobin 36.5 pg (25.0-34.0); Mean Corpuscular Hgb Conc 32.7 g/dL (32.0-36.0); Mean Corpuscular Volume 111.4 fL (80.0-100.0); Mean Platelet Volume 10.3 fL (9.4-12.4); Monocytes # (auto) 0.63 K/uL (0.11-0.59); Monocytes % (auto) 14.3 %; Neutrophils # (auto) 3.26 K/uL (1.40-6.50); Neutrophils % (auto) 73.9 %; Platelet Count 200 K/uL (130-400); RDW Coefficient of Variation 17.8 % (11.5-14.5); RDW Standard Deviation 73.5 fL (36.4-46.3); Red Blood Count 3.07 M/uL (4.20-5.40); White Blood Count 4.41 K/ul (4.8-10.8)
[2023-03-06 09:21] LABS: Calcium 8.4 mg/dl (8.6-10.3); Creatinine Clr Calc Pharmacy 62.3 ml/min; Est GFR (African American) 109.7 ml/min; Est GFR (Non-African American) 94.7 ml/min; Magnesium 1.9 mg/dl (1.7-2.4); Phosphorus 2.7 mg/dl (2.5-4.9); Potassium 3.4 mmol/L (3.5-5.1)
[2023-03-06 10:09] LABS: RBC Morphology Unremarkable
[2023-03-06] MEDS: APIXABAN 5 MG TABLET PO SCH ×2 (10:12→20:48)
[2023-03-06] MEDS: carvediloL 25 MG TAB PO SCH ×2 (10:12→20:48)
[2023-03-06] MEDS: PANTOprazole 40 MG TAB PO SCH ×2 (10:12→20:48)
[2023-03-06] MEDS: POTASSIUM CHLORIDE / WTR 10 MEQ/100 ML PLCT IV SCH ×2 (10:12→12:55)
[2023-03-06] MEDS: VALSARTAN/SACUBITRIL 103/97MG TAB PO SCH ×2 (10:13→20:48)
[2023-03-06] MEDS: amLODIPine BESYLATE 5 MG TAB PO SCH (10:13)
[2023-03-06] MEDS: MAGNESIUM OXIDE 400 MG TAB PO SCH (10:13)
[2023-03-06] MEDS: CYANOCOBALAMIN (B-12) 500 MCG TABLET PO SCH (10:13)
[2023-03-06] MEDS: POTASSIUM CHLORIDE CRTAB 20 MEQ TABCR PO SCH (10:13)
--- NOTE | 2023-03-06 14:20 | Hospitalist Progress Note ---
Date of Service March 06, 2023 Assessment & Plan (1) Weakness: Plan: 77-year-old female with past medical significant for prediabetes, hyperlipidemia, pulmonary hypertension, chronic systolic CHF, hypertension, moderate to severe mitral regurgitation, moderate tricuspid insufficiency, chronic pulmonary embolism, vitamin D deficiency, GERD, osteoporosis, history of hyponatremia, history of BRCA gene mutation, bilateral breast cancer s/p surgery, chemo and radiation, metastatic ovarian cancer s/p debulking surgery, radiation and chemotherapy and supposed to be on Lynparza but currently not taking as per patient and has appointment with heme-onc on March 10 as per patient(as per PCP notes PET scan showing areas in the rectum) comes because of weakness. Poor appetite, ambulatory dysfunction not feeling well. Found to have UTI and RSV. Weakness Ambulatory dysfunction Increasing weakness is most likely from UTI and RSV and hypokalemia Remains otherwise stable without any other significant symptoms Will get PT and OT evaluation-awaiting PT and OT evaluation Waiting for PT and OT evaluation but the patient has been doing much better clinically His weakness is improved Hypertensive emergency Hypertension-noted to be very high at systolic more than 200 at some point On Coreg and Entresto IV labetalol as needed and received intravenous hydralazine as needed placed on nitropaste for persistent elevated BP which was increased to 1 inch to 6 hourly Amlodipine 5 mg was added Blood pressure seems to be stable at 129/65 Will discontinue Nitropaste Blood pressure has been stable Electrolyte imbalance Hypokalemia and hypomagnesemia Likely secondary to poor appetite Will give replacement and monitor Has been getting supplement and will monitor Electrolytes have been replaced Strongly advised to eat and drink reasonably UTI In January she was admitted for UTI and was discharged on Augmentin Recurrent UTI Will place on Invanz until the cultures are available Urine is growing Klebsiella pneumoniae and which is pansensitive We will continue current antibiotic RSV Supportive care Droplet precautions Does not have any cough and/or shortness of breath at rest Chronic systolic CHF Moderate to severe mitral regurgitation Echo done in January 2023 EF of 40 to 45% Continue Coreg and Entresto Getting gentle fluids Monitor for volume overload-no signs and or symptoms of fluid overload Mild elevation troponin-secondary to demand ischemia Left bundle branch block Left bundle branch block was present once in EKG of July 23, 2021 Denies any chest pain We will follow serial enzymes and echo Serial troponins are unremarkable for any ACS Chronic pulmonary embolism On Eliquis Hyperlipidemia On statin GERD Protonix History of bilateral breast cancer BRCA gene positive S/p surgery and chemoradiation History of ovarian cancer metastatic S/p debulking surgery and chemoradiation Seems has an appointment on March 10 DVT prophylaxis On [facility] Disposition Med/tele Full code Admission and Anticipated Discharge Date Admission Date: March 03, 2023 Subjective 03/04/2023 The patient was seen and examined in medical telemetry unit She has been complaining of generalized weakness but does not have any acute symptoms Denies any chest pain, palpitation or shortness of breath No abdominal pain but has discomfort and no nausea and or vomiting 03/05/2023 The patient was seen and examined in medical telemetry unit She has been complaining of abdominal discomfort and thinks that she has infection in the abdomen which has been ongoing No distention of the abdomen, no nausea and/or vomiting and she has been moving her bowel Remains generally weak and lethargic She has not been eating or drinking enough 03/06/2023 The patient was seen and examined in medical telemetry unit She has been feeling much better today Weakness is improved and denies any more abdominal symptoms She will get PT and OT evaluation Review of Systems Review of Systems: All systems reviewed and are unremarkable except as noted below Musculoskeletal: Generalized weakness without any acute arthritis Physical Exam Physical Exam: Lying in bed comfortably Constitutional: + ill appearing and + thin Eyes: PERRL, conjunctivae normal, anicteric sclerae ENMT: external ear and nose normal, oropharynx normal Neck: trachea midline, no thyromegaly Respiratory: no respiratory distress Auscultation: lungs clear to auscultation bilaterally and + diminished lung sounds Cardiovascular: Rate/Rhythm: regular rate and regular rhythm; not tachycardic Heart Sounds: normal S1, normal S2 and + murmur (2/6 ESM over precordium) Extremities: no edema Gastrointestinal (Abdomen): Inspection/Auscultation: normal bowel sounds; abdomen not distended Percussion/Palpation: + abdomen tender (Mildly tender all over without guarding and no rigidity) and abdomen soft Neurologic: normal touch/pain/proprioception and moves all extremities; no focal motor deficits Lymphatic: no cervical or axillary lymphadenopathy Results & Data Results & Data Vital Signs (Past 12 Hours) Vital Signs Temp Pulse Pulse Resp BP BP Pulse Ox 03/06/23 11:25 36.4 C L 73 18 135/84 92 03/06/23 09:49 70 03/06/23 09:49 03/06/23 07:20 36.6 C 74 18 140/80 90 03/06/23 05:31 36.9 C 67 20 152/76 H 90 O2 Del Method 03/06/23 11:25 Room Air 03/06/23 09:49 03/06/23 09:49 Room Air 03/06/23 07:20 Room Air 03/06/23 05:31 Room Air Laboratory Results Short CBC 03/06/23 Range/Units 08:32 WBC 4.41 L (4.8-10.8) K/ul Hgb 11.2 L (12.0-16.0) g/dl Hct 34.2 L (37.0-47.0) % Plt Count 200 (130-400) K/uL BMP 03/06/23 08:32 Sodium 137 Potassium 3.4 L D Chloride 103 Carbon Dioxide 27 BUN 17 Creatinine 0.50 L Glucose 103 H Calcium 8.4 L Medications Administered Current Inpatient Medications Acetaminophen (Acetaminophen 325 Mg Tab) 650 mg PO Q4H PRN PRN Reason: Pain or Fever Stop: 04/03/23 00:57 Last Admin: 03/05/23 19:33 Dose: 650 mg Amlodipine Besylate (Amlodipine Besylate 5 Mg Tab) 5 mg PO QAM [facility] Stop: 04/04/23 08:59 Last Admin: 03/06/23 10:13 Dose: 5 mg Apixaban (Apixaban 5 Mg Tablet) 5 mg PO BID [facility] Stop: 04/03/23 00:57 Last Admin: 03/06/23 10:12 Dose: 5 mg Atorvastatin Calcium (Atorvastatin 10 Mg Tab) 10 mg PO HS [facility] Stop: 04/03/23 20:59 Last Admin: 03/05/23 19:29 Dose: 10 mg Carvedilol (Carvedilol 25 Mg Tab) 25 mg PO BID [facility] Stop: 04/03/23 08:59 Last Admin: 03/06/23 10:12 Dose: 25 mg Cyanocobalamin (Cyanocobalamin (B-12) 500 Mcg Tablet) 500 mcg PO DAILY [facility] Stop: 04/03/23 08:59 Last Admin: 03/06/23 10:13 Dose: 500 mcg Cefazolin Sodium (Ancef 2000mg) 2,000 mg in 15 mls @ 3.75 mls/min IV Q8H [facility] Stop: 03/13/23 22:03 Last Admin: 03/06/23 05:41 Dose: 3.75 mls/min Labetalol HCl (Labetalol Hcl Iv 5 Mg/Ml 20ml) 10 mg IV Q4H PRN PRN Reason: Hypertension Stop: 04/03/23 00:57 Magnesium Oxide (Magnesium Oxide 400 Mg Tab) 400 mg PO DAILY [facility] Stop: 04/03/23 08:59 Last Admin: 03/06/23 10:13 Dose: 400 mg Melatonin (Melatonin 3 Mg Tab) 4.5 mg PO HS PRN PRN Reason: sleep Last Admin: 03/05/23 19:33 Dose: 4.5 mg Mirtazapine (Mirtazapine Tab 15 Mg Tab) 7.5 mg PO HS [facility] Stop: 04/03/23 20:59 Last Admin: 03/05/23 19:29 Dose: 7.5 mg Nitroglycerin (Nitroglycerin Sl 0.4 Mg/Tab Tab) 0.4 mg SL Q5M PRN PRN Reason: Chest Pain Stop: 04/03/23 00:57 Pantoprazole Sodium (Pantoprazole 40 Mg Tab) 40 mg PO BID [facility] Stop: 04/03/23 08:59 Last Admin: 03/06/23 10:12 Dose: 40 mg Potassium Chloride (Potassium Chloride Crtab 20 Meq Tabcr) 20 meq PO DAILY [facility] Stop: 04/03/23 08:59 Last Admin: 03/06/23 10:13 Dose: 20 meq Sacubitril/Valsartan (Valsartan/Sacubitril 103/97mg Tab) 1 tab PO BID [facility] Stop: 04/03/23 08:59 Last Admin: 03/06/23 10:13 Dose: 1 tab
[2023-03-06] MEDS: MIRTAZAPINE TAB 15 MG TAB PO SCH (20:48)
[2023-03-06] MEDS: guaiFENesin/DEXTROM SYRUP 200MG/20MG 10ML UDC PO PRN (20:48)
[2023-03-06] MEDS: ATORVASTATIN 10 MG TAB PO SCH (21:02)
[2023-03-07] MEDS: ceFAZolin 2000MG 2,000 MG/15 ML SYR IV SCH ×3 (05:36→21:39)
[2023-03-07 06:43] LABS: Basophils # (auto) 0.02 K/uL (0.00-0.20); Basophils % (auto) 0.4 %; Eosinophils # (auto) 0.03 K/uL (0.00-0.50); Eosinophils % (auto) 0.6 %; Hematocrit (blood only) 33.7 % (37.0-47.0); Hemoglobin 10.6 g/dl (12.0-16.0); Immature Granulocytes # (auto) 0.01 K/uL (0.01-0.20); Immature Granulocytes % (auto) 0.2 %; Lymphocytes # (auto) 0.58 K/uL (1.20-3.40); Lymphocytes % (auto) 11.5 %; Mean Corpuscular Hemoglobin 35.5 pg (25.0-34.0); Mean Corpuscular Hgb Conc 31.5 g/dL (32.0-36.0); Mean Corpuscular Volume 112.7 fL (80.0-100.0); Mean Platelet Volume 10.2 fL (9.4-12.4); Monocytes # (auto) 0.67 K/uL (0.11-0.59); Monocytes % (auto) 13.3 %; Neutrophils # (auto) 3.73 K/uL (1.40-6.50); Platelet Count 224 K/uL (130-400); RDW Coefficient of Variation 17.3 % (11.5-14.5); Red Blood Count 2.99 M/uL (4.20-5.40); White Blood Count 5.04 K/ul (4.8-10.8)
[2023-03-07 07:15] LABS: Anion Gap 6 (3-11); BUN Creatinine Ratio 37.5 (10-20); Blood Urea Nitrogen 15 mg/dl (6-23); Calcium 8.2 mg/dl (8.6-10.3); Carbon Dioxide 26 mmol/L (21-32); Chloride 101 mmol/L (98-107); Creatinine Clr Calc Pharmacy 78.5 ml/min; Est GFR (African American) 118.1 ml/min; Est GFR (Non-African American) 101.9 ml/min; Glucose 98 mg/dl (70-99(Fasting)); Magnesium 1.6 mg/dl (1.7-2.4); Phosphorus 2.4 mg/dl (2.5-4.9); Sodium 133 mmol/L (136-145)
[2023-03-07 07:35] LABS: Macrocytosis Present
[2023-03-07] MEDS: guaiFENesin/DEXTROM SYRUP 200MG/20MG 10ML UDC PO PRN ×2 (09:54→21:27)
[2023-03-07] MEDS: CYANOCOBALAMIN (B-12) 500 MCG TABLET PO SCH (09:55)
[2023-03-07] MEDS: amLODIPine BESYLATE 5 MG TAB PO SCH (09:55)
[2023-03-07] MEDS: MAGNESIUM OXIDE 400 MG TAB PO SCH (09:55)
[2023-03-07] MEDS: POTASSIUM CHLORIDE CRTAB 20 MEQ TABCR PO SCH (09:55)
[2023-03-07] MEDS: carvediloL 25 MG TAB PO SCH ×2 (09:56→21:30)
[2023-03-07] MEDS: VALSARTAN/SACUBITRIL 103/97MG TAB PO SCH ×2 (09:56→21:23)
[2023-03-07] MEDS: PANTOprazole 40 MG TAB PO SCH ×2 (09:56→21:28)
[2023-03-07] MEDS: APIXABAN 5 MG TABLET PO SCH ×2 (09:56→21:24)
--- NOTE | 2023-03-07 12:38 | XRay Report ---
XR chest 1V portable HISTORY: Shortness of breath. R/O Pneumonia COMPARISON: Chest 03/03/2023. FINDINGS: No pneumothorax or no pleural effusions. The heart remains enlarged. There is diffuse inter stitial thickening again noted. This is likely chronic. There are calcifications within the aortic kn ob. Left jugular Port-A-Cath terminates in the SVC. This remains unchanged. A small right upper lobe density remains unchanged. This may represent an area of scarring. Otherwise, no new focal lung conso lidations identified. IMPRESSION: 1. Stable cardiomegaly and chronic interstitial thickening. 2. Small focal density within the right upper lobe also remains unchanged. This may represent an area of scarring. This bears watching on future examinations. ACT 112: Negative or not required by law. Electronically signed by: Matt Umanzor M.D. 03/07/2023 12:36 PM
--- NOTE | 2023-03-07 13:19 | Hospitalist Progress Note ---
Date of Service March 07, 2023 Assessment & Plan (1) Weakness: Plan: 77-year-old female with past medical significant for prediabetes, hyperlipidemia, pulmonary hypertension, chronic systolic CHF, hypertension, moderate to severe mitral regurgitation, moderate tricuspid insufficiency, chronic pulmonary embolism, vitamin D deficiency, GERD, osteoporosis, history of hyponatremia, history of BRCA gene mutation, bilateral breast cancer s/p surgery, chemo and radiation, metastatic ovarian cancer s/p debulking surgery, radiation and chemotherapy and supposed to be on Lynparza but currently not taking as per patient and has appointment with heme-onc on March 10 as per patient(as per PCP notes PET scan showing areas in the rectum) comes because of weakness. Poor appetite, ambulatory dysfunction not feeling well. Found to have UTI and RSV. Weakness Ambulatory dysfunction Increasing weakness is most likely from UTI and RSV and hypokalemia Remains otherwise stable without any other significant symptoms Will get PT and OT evaluation-awaiting PT and OT evaluation Waiting for PT and OT evaluation but the patient has been doing much better clinically His weakness is improved Appreciate PT and OT evaluation and recommendation to go to rehab He has been getting better with weakness Hypertensive emergency Hypertension-noted to be very high at systolic more than 200 at some point On Coreg and Entresto IV labetalol as needed and received intravenous hydralazine as needed placed on nitropaste for persistent elevated BP which was increased to 1 inch to 6 hourly Amlodipine 5 mg was added Blood pressure seems to be stable at 129/65 Will discontinue Nitropaste Blood pressure has been stable Electrolyte imbalance Hypokalemia and hypomagnesemia Likely secondary to poor appetite Will give replacement and monitor Has been getting supplement and will monitor Electrolytes have been replaced Strongly advised to eat and drink reasonably Electrolytes are much improved and she will have oral replacement UTI In January she was admitted for UTI and was discharged on Augmentin Recurrent UTI Will place on Invanz until the cultures are available Urine is growing Klebsiella pneumoniae and which is pansensitive We will continue current antibiotic Denies any urinary symptoms RSV Supportive care Droplet precautions Does not have any cough and/or shortness of breath at rest More shortness of breath but the chest x-ray did not show any pneumonia and/or congestion Chronic systolic CHF Moderate to severe mitral regurgitation Echo done in January 2023 EF of 40 to 45% Continue Coreg and Entresto Getting gentle fluids Monitor for volume overload-no signs and or symptoms of fluid overload No signs and or symptoms of fluid overload Mild elevation troponin-secondary to demand ischemia Left bundle branch block Left bundle branch block was present once in EKG of July 23, 2021 Denies any chest pain We will follow serial enzymes and echo Serial troponins are unremarkable for any ACS Chronic pulmonary embolism On Eliquis Hyperlipidemia On statin GERD Protonix History of bilateral breast cancer BRCA gene positive S/p surgery and chemoradiation History of ovarian cancer metastatic S/p debulking surgery and chemoradiation Seems has an appointment on March 10 DVT prophylaxis On Eliquis Disposition Med/tele Full code Will need to go to rehab Admission and Anticipated Discharge Date Admission Date: March 03, 2023 Subjective 03/04/2023 The patient was seen and examined in medical telemetry unit She has been complaining of generalized weakness but does not have any acute symptoms Denies any chest pain, palpitation or shortness of breath No abdominal pain but has discomfort and no nausea and or vomiting 03/05/2023 The patient was seen and examined in medical telemetry unit She has been complaining of abdominal discomfort and thinks that she has infection in the abdomen which has been ongoing No distention of the abdomen, no nausea and/or vomiting and she has been moving her bowel Remains generally weak and lethargic She has not been eating or drinking enough 03/06/2023 The patient was seen and examined in medical telemetry unit She has been feeling much better today Weakness is improved and denies any more abdominal symptoms She will get PT and OT evaluation 03/07/2023 The patient was seen and examined in medical telemetry unit She has been complaining of cough with shortness of breath Abdominal pain and distention are better Weakness has improved Review of Systems Review of Systems: All systems reviewed and are unremarkable except as noted below Musculoskeletal: Generalized weakness without any acute arthritis Physical Exam Physical Exam: Lying in bed comfortably Constitutional: + ill appearing and + thin Eyes: PERRL, conjunctivae normal, anicteric sclerae ENMT: external ear and nose normal, oropharynx normal Neck: trachea midline, no thyromegaly Respiratory: no respiratory distress Auscultation: lungs clear to auscultation bilaterally and + diminished lung sounds Cardiovascular: Rate/Rhythm: regular rate and regular rhythm; not tachycardic Heart Sounds: normal S1, normal S2 and + murmur (2/6 ESM over precordium) Extremities: no edema Gastrointestinal (Abdomen): Inspection/Auscultation: normal bowel sounds; abdomen not distended Percussion/Palpation: + abdomen tender (Mildly tender all over without guarding and no rigidity) and abdomen soft Neurologic: normal touch/pain/proprioception and moves all extremities; no focal motor deficits Lymphatic: no cervical or axillary lymphadenopathy Results & Data Results & Data Vital Signs (Past 12 Hours) Vital Signs Temp Pulse Pulse Resp BP BP Pulse Ox 03/07/23 12:14 03/07/23 11:40 37.3 C 74 16 117/59 L 92 03/07/23 07:55 36.8 C 71 16 168/68 H 89 L 03/07/23 07:21 72 03/07/23 03:59 37 C 75 18 142/71 H 92 03/07/23 02:37 79 O2 Del Method O2 Flow Rate 03/07/23 12:14 Nasal Cannula 2 03/07/23 11:40 Nasal Cannula 2 03/07/23 07:55 Room Air 03/07/23 07:21 03/07/23 03:59 Room Air 03/07/23 02:37 Laboratory Results Short CBC 03/07/23 Range/Units 05:20 WBC 5.04 (4.8-10.8) K/ul Hgb 10.6 L (12.0-16.0) g/dl Hct 33.7 L (37.0-47.0) % Plt Count 224 (130-400) K/uL BMP 03/07/23 03/07/23 05:20 07:31 Sodium 133 L Potassium TNP 3.6 Chloride 101 Carbon Dioxide 26 BUN 15 Creatinine 0.40 L Glucose 98 Calcium 8.2 L Medications Administered Current Inpatient Medications Acetaminophen (Acetaminophen 325 Mg Tab) 650 mg PO Q4H PRN PRN Reason: Pain or Fever Stop: 04/03/23 00:57 Last Admin: 03/05/23 19:33 Dose: 650 mg Amlodipine Besylate (Amlodipine Besylate 5 Mg Tab) 5 mg PO QAM [facility] Stop: 04/04/23 08:59 Last Admin: 03/07/23 09:55 Dose: 5 mg Apixaban (Apixaban 5 Mg Tablet) 5 mg PO BID [facility] Stop: 04/03/23 00:57 Last Admin: 03/07/23 09:56 Dose: 5 mg Atorvastatin Calcium (Atorvastatin 10 Mg Tab) 10 mg PO HS [facility] Stop: 04/03/23 20:59 Last Admin: 03/06/23 21:02 Dose: 10 mg Carvedilol (Carvedilol 25 Mg Tab) 25 mg PO BID [facility] Stop: 04/03/23 08:59 Last Admin: 03/07/23 09:56 Dose: 25 mg Cyanocobalamin (Cyanocobalamin (B-12) 500 Mcg Tablet) 500 mcg PO DAILY [facility] Stop: 04/03/23 08:59 Last Admin: 03/07/23 09:55 Dose: 500 mcg Guaifenesin/Dextromethorphan (Guaifenesin/Dextrom Syrup 200mg/20mg 10ml Udc) 10 ml PO Q6H PRN PRN Reason: Cough Stop: 04/05/23 16:07 Last Admin: 03/07/23 09:54 Dose: 10 ml Cefazolin Sodium (Ancef 2000mg) 2,000 mg in 15 mls @ 3.75 mls/min IV Q8H [facility] Stop: 03/13/23 22:03 Last Admin: 03/07/23 05:36 Dose: 3.75 mls/min Labetalol HCl (Labetalol Hcl Iv 5 Mg/Ml 20ml) 10 mg IV Q4H PRN PRN Reason: Hypertension Stop: 04/03/23 00:57 Magnesium Oxide (Magnesium Oxide 400 Mg Tab) 400 mg PO DAILY [facility] Stop: 04/03/23 08:59 Last Admin: 03/07/23 09:55 Dose: 400 mg Melatonin (Melatonin 3 Mg Tab) 4.5 mg PO HS PRN PRN Reason: sleep Last Admin: 03/05/23 19:33 Dose: 4.5 mg Mirtazapine (Mirtazapine Tab 15 Mg Tab) 7.5 mg PO HS [facility] Stop: 04/03/23 20:59 Last Admin: 03/06/23 20:48 Dose: 7.5 mg Nitroglycerin (Nitroglycerin Sl 0.4 Mg/Tab Tab) 0.4 mg SL Q5M PRN PRN Reason: Chest Pain Stop: 04/03/23 00:57 Pantoprazole Sodium (Pantoprazole 40 Mg Tab) 40 mg PO BID [facility] Stop: 04/03/23 08:59 Last Admin: 03/07/23 09:56 Dose: 40 mg Potassium Chloride (Potassium Chloride Crtab 20 Meq Tabcr) 20 meq PO DAILY [facility] Stop: 04/03/23 08:59 Last Admin: 03/07/23 09:55 Dose: 20 meq Potassium Phosphate (Pot Phosphate Monobasic W/ Sod Tab) 2 tab PO TID [facility] Stop: 04/06/23 13:59 Sacubitril/Valsartan (Valsartan/Sacubitril 103/97mg Tab) 1 tab PO BID [facility] Stop: 04/03/23 08:59 Last Admin: 03/07/23 09:56 Dose: 1 tab
[2023-03-07] MEDS: POT PHOSPHATE MONOBASIC W/ SOD TAB PO SCH ×2 (13:56→21:23)
[2023-03-07] MEDS: MIRTAZAPINE TAB 15 MG TAB PO SCH (21:24)
[2023-03-07] MEDS: ATORVASTATIN 10 MG TAB PO SCH (21:29)
[2023-03-08] MEDS: ceFAZolin 2000MG 2,000 MG/15 ML SYR IV SCH ×3 (06:06→19:39)
[2023-03-08] MEDS: VALSARTAN/SACUBITRIL 103/97MG TAB PO SCH ×2 (08:34→19:36)
[2023-03-08] MEDS: POTASSIUM CHLORIDE CRTAB 20 MEQ TABCR PO SCH (08:34)
[2023-03-08] MEDS: APIXABAN 5 MG TABLET PO SCH ×2 (08:34→19:37)
[2023-03-08] MEDS: PANTOprazole 40 MG TAB PO SCH ×2 (08:34→19:36)
[2023-03-08] MEDS: amLODIPine BESYLATE 5 MG TAB PO SCH (08:34)
[2023-03-08] MEDS: POT PHOSPHATE MONOBASIC W/ SOD TAB PO SCH ×3 (08:34→19:37)
[2023-03-08] MEDS: MAGNESIUM OXIDE 400 MG TAB PO SCH (08:34)
[2023-03-08] MEDS: carvediloL 25 MG TAB PO SCH ×2 (08:34→19:37)
[2023-03-08] MEDS: CYANOCOBALAMIN (B-12) 500 MCG TABLET PO SCH (08:34)
[2023-03-08] MEDS: guaiFENesin/DEXTROM SYRUP 200MG/20MG 10ML UDC PO PRN (08:35)
[2023-03-08] MEDS: ACETAMINOPHEN 325 MG TAB PO PRN (08:36)
[2023-03-08] MEDS ORDERED: FUROSEMIDE 40 MG/4 ML VIAL IV ONE (10:09)
[2023-03-08 12:34] LABS: BUN Creatinine Ratio 28.6 (10-20); Calcium 8.7 mg/dl (8.6-10.3); Creatinine Clr Calc Pharmacy 75.1 ml/min; Est GFR (African American) 116.2 ml/min; Est GFR (Non-African American) 100.3 ml/min; Magnesium 1.3 mg/dl (1.7-2.4); Potassium 3.1 mmol/L (3.5-5.1)
[2023-03-08] MEDS: MAGNESIUM SULFATE / D5W 1 GM/100 ML BAG IV SCH ×2 (14:58→17:06)
[2023-03-08] MEDS: POTASSIUM CHLORIDE / WTR 10 MEQ/100 ML PLCT IV SCH ×2 (14:58→16:04)
[2023-03-08] MEDS: MIRTAZAPINE TAB 15 MG TAB PO SCH (19:36)
[2023-03-08] MEDS: ATORVASTATIN 10 MG TAB PO SCH (19:37)
[2023-03-08] MEDS: MELATONIN 3 MG TAB PO PRN (19:39)
[2023-03-09] MEDS: ceFAZolin 2000MG 2,000 MG/15 ML SYR IV SCH ×3 (05:10→20:08)
[2023-03-09] MEDS: APIXABAN 5 MG TABLET PO SCH ×2 (08:21→20:09)
[2023-03-09] MEDS: amLODIPine BESYLATE 5 MG TAB PO SCH (08:22)
[2023-03-09] MEDS: CYANOCOBALAMIN (B-12) 500 MCG TABLET PO SCH (08:22)
[2023-03-09] MEDS: carvediloL 25 MG TAB PO SCH (08:22)
[2023-03-09] MEDS: POTASSIUM CHLORIDE CRTAB 20 MEQ TABCR PO SCH (08:22)
[2023-03-09] MEDS: POT PHOSPHATE MONOBASIC W/ SOD TAB PO SCH ×3 (08:23→20:08)
[2023-03-09] MEDS: VALSARTAN/SACUBITRIL 103/97MG TAB PO SCH ×2 (08:23→20:10)
[2023-03-09] MEDS: MAGNESIUM OXIDE 400 MG TAB PO SCH (08:24)
[2023-03-09] MEDS: PANTOprazole 40 MG TAB PO SCH ×2 (08:24→20:09)
[2023-03-09] MEDS: guaiFENesin/DEXTROM SYRUP 200MG/20MG 10ML UDC PO PRN ×2 (08:24→20:09)
[2023-03-09 08:44] LABS: BUN Creatinine Ratio 32.5 (10-20); Calcium 8.3 mg/dl (8.6-10.3); Creatinine Clr Calc Pharmacy 77.7 ml/min; Est GFR (African American) 118.1 ml/min; Est GFR (Non-African American) 101.9 ml/min; Magnesium 1.7 mg/dl (1.7-2.4); Phosphorus 3.2 mg/dl (2.5-4.9)
[2023-03-09] MEDS ORDERED: POTASSIUM CHLORIDE CRTAB 20 MEQ TABCR PO STA (10:50)
--- NOTE | 2023-03-09 12:56 | Hospitalist Progress Note ---
Date of Service March 09, 2023 This is a note for March 08, 2023 Assessment & Plan (1) Weakness: Plan: 77-year-old female with past medical significant for prediabetes, hyperlipidemia, pulmonary hypertension, chronic systolic CHF, hypertension, moderate to severe mitral regurgitation, moderate tricuspid insufficiency, chronic pulmonary embolism, vitamin D deficiency, GERD, osteoporosis, history of hyponatremia, history of BRCA gene mutation, bilateral breast cancer s/p surgery, chemo and radiation, metastatic ovarian cancer s/p debulking surgery, radiation and chemotherapy and supposed to be on Lynparza but currently not taking as per patient and has appointment with heme-onc on March 10 as per patient(as per PCP notes PET scan showing areas in the rectum) comes because of weakness. Poor appetite, ambulatory dysfunction not feeling well. Found to have UTI and RSV. Weakness Ambulatory dysfunction Increasing weakness is most likely from UTI and RSV and hypokalemia Remains otherwise stable without any other significant symptoms Will get PT and OT evaluation-awaiting PT and OT evaluation Waiting for PT and OT evaluation but the patient has been doing much better clinically His weakness is improved Appreciate PT and OT evaluation and recommendation to go to rehab He has been getting better with weakness Will need PT OT evaluation prior to discharge Hypertensive emergency Hypertension-noted to be very high at systolic more than 200 at some point On Coreg and Entresto IV labetalol as needed and received intravenous hydralazine as needed placed on nitropaste for persistent elevated BP which was increased to 1 inch to 6 hourly Amlodipine 5 mg was added Blood pressure seems to be stable at 129/65 Will discontinue Nitropaste Blood pressure has been stable Electrolyte imbalance Hypokalemia and hypomagnesemia Likely secondary to poor appetite Will give replacement and monitor Has been getting supplement and will monitor Electrolytes have been replaced Strongly advised to eat and drink reasonably Electrolytes are much improved and she will have oral replacement Will continue supplement and monitoring electrolyte UTI In January she was admitted for UTI and was discharged on Augmentin Recurrent UTI Will place on Invanz until the cultures are available Urine is growing Klebsiella pneumoniae and which is pansensitive We will continue current antibiotic Denies any urinary symptoms RSV Supportive care Droplet precautions Does not have any cough and/or shortness of breath at rest More shortness of breath but the chest x-ray did not show any pneumonia and/or congestion Still has cough productive of yellow phlegm No fever and or chills Chronic systolic CHF Moderate to severe mitral regurgitation Echo done in January 2023 EF of 40 to 45% Continue Coreg and Entresto Getting gentle fluids Monitor for volume overload-no signs and or symptoms of fluid overload No signs and or symptoms of fluid overload Mild elevation troponin-secondary to demand ischemia Left bundle branch block Left bundle branch block was present once in EKG of July 23, 2021 Denies any chest pain We will follow serial enzymes and echo Serial troponins are unremarkable for any ACS Chronic pulmonary embolism On Eliquis Hyperlipidemia On statin GERD Protonix History of bilateral breast cancer BRCA gene positive S/p surgery and chemoradiation History of ovarian cancer metastatic S/p debulking surgery and chemoradiation Seems has an appointment on March 10 DVT prophylaxis On Eliquis Disposition Med/tele Full code Will need to go to rehab Admission and Anticipated Discharge Date Admission Date: March 03, 2023 Subjective 03/04/2023 The patient was seen and examined in medical telemetry unit She has been complaining of generalized weakness but does not have any acute symptoms Denies any chest pain, palpitation or shortness of breath No abdominal pain but has discomfort and no nausea and or vomiting 03/05/2023 The patient was seen and examined in medical telemetry unit She has been complaining of abdominal discomfort and thinks that she has infection in the abdomen which has been ongoing No distention of the abdomen, no nausea and/or vomiting and she has been moving her bowel Remains generally weak and lethargic She has not been eating or drinking enough 03/06/2023 The patient was seen and examined in medical telemetry unit She has been feeling much better today Weakness is improved and denies any more abdominal symptoms She will get PT and OT evaluation 03/07/2023 The patient was seen and examined in medical telemetry unit She has been complaining of cough with shortness of breath Abdominal pain and distention are better Weakness has improved 03/08/2023 The patient was seen and examined in medical telemetry She remains weak and lethargic Electrolytes not yet normalized Review of Systems Review of Systems: All systems reviewed and are unremarkable except as noted below Musculoskeletal: Generalized weakness without any acute arthritis Physical Exam Physical Exam: Lying in bed comfortably Constitutional: + ill appearing and + thin Eyes: PERRL, conjunctivae normal, anicteric sclerae ENMT: external ear and nose normal, oropharynx normal Neck: trachea midline, no thyromegaly Respiratory: no respiratory distress Auscultation: lungs clear to auscultation bilaterally and + diminished lung sounds Cardiovascular: Rate/Rhythm: regular rate and regular rhythm; not tachycardic Heart Sounds: normal S1, normal S2 and + murmur (2/6 ESM over precordium) Extremities: no edema Gastrointestinal (Abdomen): Inspection/Auscultation: normal bowel sounds; abdomen not distended Percussion/Palpation: + abdomen tender (Mildly tender all over without guarding and no rigidity) and abdomen soft Neurologic: normal touch/pain/proprioception and moves all extremities; no focal motor deficits Lymphatic: no cervical or axillary lymphadenopathy Results & Data Results & Data Vital Signs (Past 12 Hours) Vital Signs Temp Pulse Pulse Resp BP Pulse Ox O2 Del Method 03/09/23 11:39 36.7 C 77 16 149/70 H 96 Nasal Cannula 03/09/23 08:00 36.4 C L 77 18 160/75 H 91 Nasal Cannula 03/09/23 07:50 75 03/09/23 07:39 Nasal Cannula O2 Flow Rate 03/09/23 11:39 3 03/09/23 08:00 3 03/09/23 07:50 03/09/23 07:39 2
--- NOTE | 2023-03-09 13:09 | Hospitalist Progress Note ---
Date of Service March 09, 2023 Assessment & Plan (1) Weakness: Plan: 77-year-old female with past medical significant for prediabetes, hyperlipidemia, pulmonary hypertension, chronic systolic CHF, hypertension, moderate to severe mitral regurgitation, moderate tricuspid insufficiency, chronic pulmonary embolism, vitamin D deficiency, GERD, osteoporosis, history of hyponatremia, history of BRCA gene mutation, bilateral breast cancer s/p surgery, chemo and radiation, metastatic ovarian cancer s/p debulking surgery, radiation and chemotherapy and supposed to be on Lynparza but currently not taking as per patient and has appointment with heme-onc on March 10 as per patient(as per PCP notes PET scan showing areas in the rectum) comes because of weakness. Poor appetite, ambulatory dysfunction not feeling well. Found to have UTI and RSV. Weakness Ambulatory dysfunction Increasing weakness is most likely from UTI and RSV and hypokalemia Remains otherwise stable without any other significant symptoms Will get PT and OT evaluation-awaiting PT and OT evaluation Waiting for PT and OT evaluation but the patient has been doing much better clinically His weakness is improved Appreciate PT and OT evaluation and recommendation to go to rehab He has been getting better with weakness Will need PT OT evaluation prior to discharge Has had PT and OT evaluation and recommended rehab Hypertensive emergency Hypertension-noted to be very high at systolic more than 200 at some point On Coreg and Entresto IV labetalol as needed and received intravenous hydralazine as needed placed on nitropaste for persistent elevated BP which was increased to 1 inch to 6 hourly Amlodipine 5 mg was added Blood pressure seems to be stable at 129/65 Will discontinue Nitropaste Blood pressure has been stable Electrolyte imbalance Hypokalemia and hypomagnesemia Likely secondary to poor appetite Will give replacement and monitor Has been getting supplement and will monitor Electrolytes have been replaced Strongly advised to eat and drink reasonably Electrolytes are much improved and she will have oral replacement Will continue supplement and monitoring electrolyte Potassium remains low which will be supplemented today and monitor UTI In January she was admitted for UTI and was discharged on Augmentin Recurrent UTI Will place on Invanz until the cultures are available Urine is growing Klebsiella pneumoniae and which is pansensitive We will continue current antibiotic Denies any urinary symptoms RSV Supportive care Droplet precautions Does not have any cough and/or shortness of breath at rest More shortness of breath but the chest x-ray did not show any pneumonia and/or congestion Still has cough productive of yellow phlegm No fever and or chills Continues to have cough with reactive phlegm-will start doxycycline orally Chronic systolic CHF Moderate to severe mitral regurgitation Echo done in January 2023 EF of 40 to 45% Continue Coreg and Entresto Getting gentle fluids Monitor for volume overload-no signs and or symptoms of fluid overload No signs and or symptoms of fluid overload Received 1 dose of intravenous Lasix yesterday without much improvement Mild elevation troponin-secondary to demand ischemia Left bundle branch block Left bundle branch block was present once in EKG of July 23, 2021 Denies any chest pain We will follow serial enzymes and echo Serial troponins are unremarkable for any ACS Chronic pulmonary embolism On Eliquis Hyperlipidemia On statin GERD Protonix History of bilateral breast cancer BRCA gene positive S/p surgery and chemoradiation History of ovarian cancer metastatic S/p debulking surgery and chemoradiation Seems has an appointment on March 10 DVT prophylaxis On Eliquis Disposition Med/tele Full code Will need to go to rehab Awaiting placement Admission and Anticipated Discharge Date Admission Date: March 03, 2023 Subjective 03/04/2023 The patient was seen and examined in medical telemetry unit She has been complaining of generalized weakness but does not have any acute symptoms Denies any chest pain, palpitation or shortness of breath No abdominal pain but has discomfort and no nausea and or vomiting 03/05/2023 The patient was seen and examined in medical telemetry unit She has been complaining of abdominal discomfort and thinks that she has infection in the abdomen which has been ongoing No distention of the abdomen, no nausea and/or vomiting and she has been moving her bowel Remains generally weak and lethargic She has not been eating or drinking enough 03/06/2023 The patient was seen and examined in medical telemetry unit She has been feeling much better today Weakness is improved and denies any more abdominal symptoms She will get PT and OT evaluation 03/07/2023 The patient was seen and examined in medical telemetry unit She has been complaining of cough with shortness of breath Abdominal pain and distention are better Weakness has improved 03/08/2023 The patient was seen and examined in medical telemetry She remains weak and lethargic Electrolytes not yet normalized 03/09/2023 The patient was seen and examined in medical telemetry unit She has been better but remains very weak and lethargic Still has cough and productive of Riley phlegm She has wheezing as well Review of Systems Review of Systems: All systems reviewed and are unremarkable except as noted below Musculoskeletal: Generalized weakness without any acute arthritis Physical Exam Physical Exam: Lying in bed comfortably with profuse cough with phlegm Constitutional: + ill appearing and + thin Eyes: PERRL, conjunctivae normal, anicteric sclerae ENMT: external ear and nose normal, oropharynx normal Neck: trachea midline, no thyromegaly Respiratory: no respiratory distress Auscultation: + diminished lung sounds, + crackles (Crackles anteriorly) and + wheezes (Minimal wheezing bilaterally) Cardiovascular: Rate/Rhythm: regular rate and regular rhythm; not tachycardic Heart Sounds: normal S1, normal S2 and + murmur (2/6 ESM over precordium) Extremities: no edema Gastrointestinal (Abdomen): Inspection/Auscultation: normal bowel sounds; abdomen not distended Percussion/Palpation: + abdomen tender (Mildly tender all over without guarding and no rigidity) and abdomen soft Musculoskeletal: No acute arthritis involving any of the joint Neurologic: normal touch/pain/proprioception and moves all extremities; no focal motor deficits Lymphatic: no cervical or axillary lymphadenopathy Results & Data Results & Data Vital Signs (Past 12 Hours) Vital Signs Temp Pulse Pulse Resp BP Pulse Ox O2 Del Method 03/09/23 11:39 36.7 C 77 16 149/70 H 96 Nasal Cannula 03/09/23 08:00 36.4 C L 77 18 160/75 H 91 Nasal Cannula 03/09/23 07:50 75 03/09/23 07:39 Nasal Cannula O2 Flow Rate 03/09/23 11:39 3 03/09/23 08:00 3 03/09/23 07:50 03/09/23 07:39 2 Laboratory Results [facility] 03/09/23 08:04 Sodium 140 Potassium 3.0 L Chloride 99 Carbon Dioxide 34 H BUN 13 Creatinine 0.40 L Glucose 113 H Calcium 8.3 L Medications Administered Current Inpatient Medications Acetaminophen (Acetaminophen 325 Mg Tab) 650 mg PO Q4H PRN PRN Reason: Pain or Fever Stop: 04/03/23 00:57 Last Admin: 03/08/23 08:36 Dose: 650 mg Amlodipine Besylate (Amlodipine Besylate 5 Mg Tab) 5 mg PO QAM [facility] Stop: 04/04/23 08:59 Last Admin: 03/09/23 08:22 Dose: 5 mg Apixaban (Apixaban 5 Mg Tablet) 5 mg PO BID [facility] Stop: 04/03/23 00:57 Last Admin: 03/09/23 08:21 Dose: 5 mg Atorvastatin Calcium (Atorvastatin 10 Mg Tab) 10 mg PO HS [facility] Stop: 04/03/23 20:59 Last Admin: 03/08/23 19:37 Dose: 10 mg Carvedilol (Carvedilol 25 Mg Tab) 25 mg PO BID [facility] Stop: 04/03/23 08:59 Last Admin: 03/09/23 08:22 Dose: 25 mg Cyanocobalamin (Cyanocobalamin (B-12) 500 Mcg Tablet) 500 mcg PO DAILY [facility] Stop: 04/03/23 08:59 Last Admin: 03/09/23 08:22 Dose: 500 mcg Guaifenesin/Dextromethorphan (Guaifenesin/Dextrom Syrup 200mg/20mg 10ml Udc) 10 ml PO Q6H PRN PRN Reason: Cough Stop: 04/05/23 16:07 Last Admin: 03/09/23 08:24 Dose: 10 ml Cefazolin Sodium (Ancef 2000mg) 2,000 mg in 15 mls @ 3.75 mls/min IV Q8H [facility] Stop: 03/13/23 22:03 Last Admin: 03/09/23 05:10 Dose: 3.75 mls/min Labetalol HCl (Labetalol Hcl Iv 5 Mg/Ml 20ml) 10 mg IV Q4H PRN PRN Reason: Hypertension Stop: 04/03/23 00:57 Magnesium Oxide (Magnesium Oxide 400 Mg Tab) 400 mg PO DAILY [facility] Stop: 04/03/23 08:59 Last Admin: 03/09/23 08:24 Dose: 400 mg Melatonin (Melatonin 3 Mg Tab) 4.5 mg PO HS PRN PRN Reason: sleep Last Admin: 03/08/23 19:39 Dose: 4.5 mg Mirtazapine (Mirtazapine Tab 15 Mg Tab) 7.5 mg PO HS [facility] Stop: 04/03/23 20:59 Last Admin: 03/08/23 19:36 Dose: 7.5 mg Nitroglycerin (Nitroglycerin Sl 0.4 Mg/Tab Tab) 0.4 mg SL Q5M PRN PRN Reason: Chest Pain Stop: 04/03/23 00:57 Pantoprazole Sodium (Pantoprazole 40 Mg Tab) 40 mg PO BID [facility] Stop: 04/03/23 08:59 Last Admin: 03/09/23 08:24 Dose: 40 mg Potassium Chloride (Potassium Chloride Crtab 20 Meq Tabcr) 20 meq PO DAILY [facility] Stop: 04/03/23 08:59 Last Admin: 03/09/23 08:22 Dose: 20 meq Potassium Phosphate (Pot Phosphate Monobasic W/ Sod Tab) 2 tab PO TID [facility] Stop: 04/06/23 13:59 Last Admin: 03/09/23 08:23 Dose: 2 tab Sacubitril/Valsartan (Valsartan/Sacubitril 103/97mg Tab) 1 tab PO BID [facility] Stop: 04/03/23 08:59 Last Admin: 03/09/23 08:23 Dose: 1 tab
[2023-03-09] MEDS ORDERED: POTASSIUM CHLORIDE / WTR 10 MEQ/100 ML PLCT IV ONE (18:22)
[2023-03-09] MEDS: MIRTAZAPINE TAB 15 MG TAB PO SCH ×2 (20:08→20:13)
[2023-03-09] MEDS: DOXYCYCLINE HYCLATE 100 MG CAP PO SCH (20:09)
[2023-03-09] MEDS: ATORVASTATIN 10 MG TAB PO SCH (20:09)
[2023-03-09] MEDS: carvediloL 12.5 MG TAB PO SCH (20:23)
[2023-03-10] MEDS: ceFAZolin 2000MG 2,000 MG/15 ML SYR IV SCH ×3 (05:40→20:41)
[2023-03-10] MEDS: VALSARTAN/SACUBITRIL 103/97MG TAB PO SCH ×2 (08:32→20:42)
[2023-03-10] MEDS: PANTOprazole 40 MG TAB PO SCH ×2 (08:32→20:42)
[2023-03-10] MEDS: APIXABAN 5 MG TABLET PO SCH ×2 (08:32→20:41)
[2023-03-10] MEDS: DOXYCYCLINE HYCLATE 100 MG CAP PO SCH ×2 (08:32→20:41)
[2023-03-10] MEDS: POT PHOSPHATE MONOBASIC W/ SOD TAB PO SCH ×3 (08:32→20:41)
[2023-03-10] MEDS: CYANOCOBALAMIN (B-12) 500 MCG TABLET PO SCH (08:33)
[2023-03-10] MEDS: MAGNESIUM OXIDE 400 MG TAB PO SCH (08:33)
[2023-03-10] MEDS: amLODIPine BESYLATE 5 MG TAB PO SCH (08:33)
[2023-03-10] MEDS: POTASSIUM CHLORIDE CRTAB 20 MEQ TABCR PO SCH (08:33)
[2023-03-10] MEDS: carvediloL 12.5 MG TAB PO SCH ×2 (08:34→20:41)
[2023-03-10 10:35] LABS: Hematocrit (blood only) 34.5 % (37.0-47.0); Hemoglobin 11.1 g/dl (12.0-16.0); Mean Corpuscular Hemoglobin 35.5 pg (25.0-34.0); Mean Corpuscular Hgb Conc 32.2 g/dL (32.0-36.0); Mean Corpuscular Volume 110.2 fL (80.0-100.0); Mean Platelet Volume 9.7 fL (9.4-12.4); Platelet Count 233 K/uL (130-400); RDW Coefficient of Variation 16.8 % (11.5-14.5); RDW Standard Deviation 69.3 fL (36.4-46.3); Red Blood Count 3.13 M/uL (4.20-5.40)
[2023-03-10 10:53] LABS: BUN Creatinine Ratio 33.3 (10-20); Calcium 8.8 mg/dl (8.6-10.3); Creatinine Clr Calc Pharmacy 94.9 ml/min; Est GFR (African American) 125.8 ml/min; Est GFR (Non-African American) 108.5 ml/min; Magnesium 1.5 mg/dl (1.7-2.4); Phosphorus 2.3 mg/dl (2.5-4.9); Potassium 3.4 mmol/L (3.5-5.1)
[2023-03-10 11:01] LABS: Basophils # (auto) 0.03 K/uL (0.00-0.20); Basophils % (auto) 0.9 %; Immature Granulocytes # (auto) 0.01 K/uL (0.01-0.20); Immature Granulocytes % (auto) 0.3 %; Lymphocytes # (auto) 0.68 K/uL (1.20-3.40); Lymphocytes % (auto) 19.4 %; Macrocytosis Present; Monocytes # (auto) 0.46 K/uL (0.11-0.59); Monocytes % (auto) 13.1 %; Neutrophils # (auto) 2.32 K/uL (1.40-6.50); Neutrophils % (auto) 66.3 %; Ovalocytes 1+
[2023-03-10] MEDS ORDERED: MAGNESIUM SULFATE / D5W 1 GM/100 ML BAG IV ONE (11:47)
[2023-03-10] MEDS ORDERED: POTASSIUM CHLORIDE CRTAB 20 MEQ TABCR PO STA (11:48)
[2023-03-10] MEDS: guaiFENesin/DEXTROM SYRUP 200MG/20MG 10ML UDC PO PRN (12:13)
[2023-03-10] MEDS: LEVALBUTEROL 1.25 MG/3 ML NEB NEB SCH ×2 (13:07→18:44)
[2023-03-10] MEDS: SODIUM CHLOR 7% 4 ML NEB NEB SCH ×2 (13:08→18:44)
[2023-03-10] MEDS: IPRATROPIUM BROMIDE NEB SOLN 0.02% 2.5 ML VIAL INH SCH ×2 (13:08→18:44)
[2023-03-10] MEDS: guaiFENesin 600 MG TABCR PO SCH ×2 (13:49→20:41)
[2023-03-10] MEDS ORDERED: XOPENEX/ATROVENT 1.25mg/0.5MG NEB COMBO NEB SCH (14:00)
--- NOTE | 2023-03-10 15:42 | Hospitalist Progress Note ---
Date of Service March 10, 2023 Assessment & Plan (1) Respiratory syncytial virus (RSV): (2) Acute UTI (urinary tract infection): Plan: per previous hospitalist notes with addendum: (1) Weakness: Plan: 77-year-old female with past medical significant for prediabetes, hyperlipidemia, pulmonary hypertension, chronic systolic CHF, hypertension, moderate to severe mitral regurgitation, moderate tricuspid insufficiency, chronic pulmonary embolism, vitamin D deficiency, GERD, osteoporosis, history of hyponatremia, history of BRCA gene mutation, bilateral breast cancer s/p surgery, chemo and radiation, metastatic ovarian cancer s/p debulking surgery, radiation and chemotherapy and supposed to be on Lynparza but currently not taking as per patient and has appointment with heme-onc on March 10 as per patient(as per PCP notes PET scan showing areas in the rectum) comes because of weakness. Poor appetite, ambulatory dysfunction not feeling well. Found to have UTI and RSV. Weakness Ambulatory dysfunction Increasing weakness is most likely from UTI and RSV and hypokalemia Remains otherwise stable without any other significant symptoms Will get PT and OT evaluation-awaiting PT and OT evaluation Waiting for PT and OT evaluation but the patient has been doing much better clinically His weakness is improved Appreciate PT and OT evaluation and recommendation to go to rehab He has been getting better with weakness Will need PT OT evaluation prior to discharge Has had PT and OT evaluation and recommended rehab 03/10 Still on the weak side Management of acute bronchitis, UTI per below PT and OT evaluation Hypertensive emergency Hypertension-noted to be very high at systolic more than 200 at some point On Coreg and Entresto IV labetalol as needed and received intravenous hydralazine as needed placed on nitropaste for persistent elevated BP which was increased to 1 inch to 6 hourly Amlodipine 5 mg was added Blood pressure seems to be stable at 129/65 Will discontinue Nitropaste Blood pressure has been stable 03/10 Continue to monitor Electrolyte imbalance Hypokalemia and hypomagnesemia Likely secondary to poor appetite Will give replacement and monitor Has been getting supplement and will monitor Electrolytes have been replaced Strongly advised to eat and drink reasonably Electrolytes are much improved and she will have oral replacement Will continue supplement and monitoring electrolyte Potassium remains low which will be supplemented today and monitor 03/10 Replace and monitor UTI In January she was admitted for UTI and was discharged on Augmentin Recurrent UTI Will place on Invanz until the cultures are available Urine is growing Klebsiella pneumoniae and which is pansensitive We will continue current antibiotic Denies any urinary symptoms 03/10 Continue cefazolin RSV Supportive care Droplet precautions Does not have any cough and/or shortness of breath at rest More shortness of breath but the chest x-ray did not show any pneumonia and/or congestion Still has cough productive of yellow phlegm No fever and or chills Continues to have cough with reactive phlegm-will start doxycycline orally 03/10 On cefazolin plus doxycycline And Xopenex/Atrovent nebs, hypertonic saline nebs, Mucinex, flutter valve, incentive spirometry Chronic systolic CHF Moderate to severe mitral regurgitation Echo done in January 2023 EF of 40 to 45% Continue Coreg and Entresto Getting gentle fluids Monitor for volume overload-no signs and or symptoms of fluid overload No signs and or symptoms of fluid overload Received 1 dose of intravenous Lasix yesterday without much improvement 03/10 Appears euvolemic at this point Monitor closely Mild elevation troponin-secondary to demand ischemia Left bundle branch block Left bundle branch block was present once in EKG of July 23, 2021 Denies any chest pain We will follow serial enzymes and echo Serial troponins are unremarkable for any ACS Chronic pulmonary embolism On Eliquis Hyperlipidemia On statin GERD Protonix History of bilateral breast cancer BRCA gene positive S/p surgery and chemoradiation History of ovarian cancer metastatic S/p debulking surgery and chemoradiation Seems has an appointment on March 10 DVT prophylaxis On Eliquis Disposition Med/tele Full code Will need to go to rehab Awaiting placement Admission and Anticipated Discharge Date Admission Date: March 03, 2023 Subjective Follow-up for acute bronchitis, weakness, etc. Seen resting in bed, sleeping but easily awakened Comfortable, not in distress States she still feels weak Still having some cough, productive of white sputum, no active shortness of breath No chest pain No abdominal pain, problems with urination or bowel movement No fevers or chills No other new symptoms Review of Systems Review of Systems: all noted and negative except for above Physical Exam Physical Exam: General- oriented x 2, not in distress, speaks in sentences with no effort or accessory muscle use Eyes- anicteric Neck- no JVD Lungs-positive mild rhonchi scattered bilaterally No wheezing Good air entry bilaterally Heart- normal rate, regular rhythm; no murmurs Abdomen- normal bowel sounds, nondistended, soft, nontender Extremities- no pretibial edema, no calf tenderness Neuro- alert, oriented x 3; no gross focal neurologic deficits Skin- warm & dry Results & Data Results & Data Vital Signs (Past 12 Hours) Vital Signs Temp Pulse Pulse Resp BP Pulse Ox O2 Del Method 03/10/23 15:07 69 03/10/23 13:08 74 16 95 Nasal Cannula 03/10/23 12:12 36.6 C 72 17 164/74 H 87 L Nasal Cannula 03/10/23 09:12 36.6 C 70 18 162/72 H 86 L Nasal Cannula 03/10/23 07:26 Nasal Cannula 03/10/23 06:58 71 O2 Flow Rate 03/10/23 15:07 03/10/23 13:08 2 03/10/23 12:12 3 03/10/23 09:12 3 03/10/23 07:26 2 03/10/23 06:58 all noted and reviewed including below
[2023-03-10] MEDS: MIRTAZAPINE TAB 15 MG TAB PO SCH (20:41)
[2023-03-10] MEDS: ATORVASTATIN 10 MG TAB PO SCH (20:41)
[2023-03-10] MEDS: MAGNESIUM CHLORIDE W/CALCIUM 64MG DELAYED REL TAB PO SCH (20:41)
[2023-03-11] MEDS: ceFAZolin 2000MG 2,000 MG/15 ML SYR IV SCH ×3 (05:30→22:12)
[2023-03-11] MEDS: LEVALBUTEROL 1.25 MG/3 ML NEB NEB SCH ×3 (06:57→19:04)
[2023-03-11] MEDS: SODIUM CHLOR 7% 4 ML NEB NEB SCH ×2 (06:57→19:04)
[2023-03-11] MEDS: IPRATROPIUM BROMIDE NEB SOLN 0.02% 2.5 ML VIAL INH SCH ×3 (06:57→19:04)
[2023-03-11] MEDS: POTASSIUM CHLORIDE CRTAB 20 MEQ TABCR PO SCH (08:52)
[2023-03-11] MEDS: amLODIPine BESYLATE 5 MG TAB PO SCH (08:53)
[2023-03-11] MEDS: VALSARTAN/SACUBITRIL 103/97MG TAB PO SCH ×2 (08:53→19:54)
[2023-03-11] MEDS: CYANOCOBALAMIN (B-12) 500 MCG TABLET PO SCH (08:53)
[2023-03-11] MEDS: MAGNESIUM CHLORIDE W/CALCIUM 64MG DELAYED REL TAB PO SCH ×2 (08:53→19:51)
[2023-03-11] MEDS: carvediloL 12.5 MG TAB PO SCH ×2 (08:53→19:53)
[2023-03-11] MEDS: POT PHOSPHATE MONOBASIC W/ SOD TAB PO SCH ×3 (08:53→19:54)
[2023-03-11] MEDS: PANTOprazole 40 MG TAB PO SCH ×2 (08:53→19:53)
[2023-03-11] MEDS: DOXYCYCLINE HYCLATE 100 MG CAP PO SCH ×2 (08:53→19:52)
[2023-03-11] MEDS: APIXABAN 5 MG TABLET PO SCH ×2 (08:53→19:52)
[2023-03-11] MEDS: guaiFENesin 600 MG TABCR PO SCH ×2 (08:54→19:51)
[2023-03-11] MEDS: ACETAMINOPHEN 325 MG TAB PO PRN (09:13)
[2023-03-11 10:35] LABS: BUN Creatinine Ratio 30.3 (10-20); Calcium 8.7 mg/dl (8.6-10.3); Creatinine Clr Calc Pharmacy 98.1 ml/min; Est GFR (African American) 125.8 ml/min; Est GFR (Non-African American) 108.5 ml/min; Magnesium 1.3 mg/dl (1.7-2.4); Potassium 3.5 mmol/L (3.5-5.1)
[2023-03-11] MEDS: ADVANCED PROBIOTIC 1250 MG CAPSULE PO SCH (12:37)
--- NOTE | 2023-03-11 18:10 | Hospitalist Progress Note ---
Date of Service March 11, 2023 Assessment & Plan (1) Respiratory syncytial virus (RSV): (2) Acute UTI (urinary tract infection): Plan: per previous hospitalist notes with addendum: (1) Weakness: Plan: 77-year-old female with past medical significant for prediabetes, hyperlipidemia, pulmonary hypertension, chronic systolic CHF, hypertension, moderate to severe mitral regurgitation, moderate tricuspid insufficiency, chronic pulmonary embolism, vitamin D deficiency, GERD, osteoporosis, history of hyponatremia, history of BRCA gene mutation, bilateral breast cancer s/p surgery, chemo and radiation, metastatic ovarian cancer s/p debulking surgery, radiation and chemotherapy and supposed to be on Lynparza but currently not taking as per patient and has appointment with heme-onc on March 10 as per patient(as per PCP notes PET scan showing areas in the rectum) comes because of weakness. Poor appetite, ambulatory dysfunction not feeling well. Found to have UTI and RSV. Weakness Ambulatory dysfunction Increasing weakness is most likely from UTI and RSV and hypokalemia Remains otherwise stable without any other significant symptoms Will get PT and OT evaluation-awaiting PT and OT evaluation Waiting for PT and OT evaluation but the patient has been doing much better clinically His weakness is improved Appreciate PT and OT evaluation and recommendation to go to rehab He has been getting better with weakness Will need PT OT evaluation prior to discharge Has had PT and OT evaluation and recommended rehab 03/10 Still on the weak side Management of acute bronchitis, UTI per below PT and OT evaluation 03/11 Weakness improving. Yesterday Management of other problems per below Hypertensive emergency Hypertension-noted to be very high at systolic more than 200 at some point On Coreg and Entresto IV labetalol as needed and received intravenous hydralazine as needed placed on nitropaste for persistent elevated BP which was increased to 1 inch to 6 hourly Amlodipine 5 mg was added Blood pressure seems to be stable at 129/65 Will discontinue Nitropaste Blood pressure has been stable 03/11 Seems to be improving Monitor closely Electrolyte imbalance Hypokalemia and hypomagnesemia Likely secondary to poor appetite Will give replacement and monitor Has been getting supplement and will monitor Electrolytes have been replaced Strongly advised to eat and drink reasonably Electrolytes are much improved and she will have oral replacement Will continue supplement and monitoring electrolyte Potassium remains low which will be supplemented today and monitor 03/11 Replacements ordered Monitor closely UTI In January she was admitted for UTI and was discharged on Augmentin Recurrent UTI Will place on Invanz until the cultures are available Urine is growing Klebsiella pneumoniae and which is pansensitive We will continue current antibiotic Denies any urinary symptoms 03/11 Continue cefazolin RSV Supportive care Droplet precautions Does not have any cough and/or shortness of breath at rest More shortness of breath but the chest x-ray did not show any pneumonia and/or congestion Still has cough productive of yellow phlegm No fever and or chills Continues to have cough with reactive phlegm-will start doxycycline orally 03/11 On cefazolin plus doxycycline Xopenex/Atrovent nebs, hypertonic saline nebs, Mucinex, flutter valve, incentive spirometry Seems to be improving Chronic systolic CHF Moderate to severe mitral regurgitation Echo done in January 2023 EF of 40 to 45% Continue Coreg and Entresto Getting gentle fluids Monitor for volume overload-no signs and or symptoms of fluid overload No signs and or symptoms of fluid overload Received 1 dose of intravenous Lasix yesterday without much improvement 03/11 Appears euvolemic at this point Monitor closely Mild elevation troponin-secondary to demand ischemia Left bundle branch block Left bundle branch block was present once in EKG of July 23, 2021 Denies any chest pain We will follow serial enzymes and echo Serial troponins are unremarkable for any ACS Chronic pulmonary embolism On Eliquis Hyperlipidemia On statin GERD Protonix History of bilateral breast cancer BRCA gene positive S/p surgery and chemoradiation History of ovarian cancer metastatic S/p debulking surgery and chemoradiation Seems has an appointment on March 10 DVT prophylaxis On Eliquis Disposition Med/tele Full code Will need to go to rehab Awaiting placement Admission and Anticipated Discharge Date Admission Date: March 03, 2023 Subjective Follow-up for RSV, bronchitis, weakness, etc. Seen resting in bed, comfortable, not in distress On 2 L of oxygen States she feels improved compared to yesterday Breathing is improving, coughing less, able to expectorate more phlegm Less chest congestion Still feels on the weak side but improving No abdominal pain, problems with urination No other new symptom Review of Systems Review of Systems: all noted and negative except for above Physical Exam Physical Exam: General- oriented x 3, not in distress, speaks in sentences with no effort or accessory muscle use Eyes- anicteric Neck- no JVD Lungs-faint rhonchi bilateral bases, no wheezing Heart- normal rate, regular rhythm; no murmurs Abdomen- normal bowel sounds, nondistended, soft, nontender Extremities- no pretibial edema, no calf tenderness Neuro- alert, oriented x 3; no gross focal neurologic deficits Skin- warm & dry Results & Data Results & Data Vital Signs (Past 12 Hours) Vital Signs Temp Pulse Pulse Resp BP Pulse Ox O2 Del Method 03/11/23 16:53 67 03/11/23 15:48 36.6 C 69 18 144/76 H 97 Nasal Cannula 03/11/23 13:34 68 18 98 Nasal Cannula 03/11/23 12:37 36.5 C 70 17 129/74 93 Room Air 03/11/23 09:46 71 03/11/23 09:04 Nasal Cannula 03/11/23 07:04 36.4 C L 72 18 155/74 H 100 Nebulizer 03/11/23 06:58 69 18 99 Nasal Cannula 03/11/23 06:33 36.7 C 69 16 153/71 H 99 Nasal Cannula O2 Flow Rate 03/11/23 16:53 03/11/23 15:48 03/11/23 13:34 2 03/11/23 12:37 03/11/23 09:46 03/11/23 09:04 2 03/11/23 07:04 03/11/23 06:58 4 03/11/23 06:33 4 all noted and reviewed including below
[2023-03-11] MEDS: MAGNESIUM SULFATE / D5W 1 GM/100 ML BAG IV SCH ×2 (18:46→19:34)
[2023-03-11] MEDS: MELATONIN 3 MG TAB PO PRN (19:50)
[2023-03-11] MEDS: MIRTAZAPINE TAB 15 MG TAB PO SCH (19:51)
[2023-03-11] MEDS: ATORVASTATIN 10 MG TAB PO SCH (19:52)
[2023-03-12] MEDS: ACETAMINOPHEN 325 MG TAB PO PRN (04:19)
[2023-03-12] MEDS ORDERED: DICLOFENAC SOD 1% GEL 100 GM TUBE EXT PRN (04:54)
[2023-03-12] MEDS: ceFAZolin 2000MG 2,000 MG/15 ML SYR IV SCH ×3 (05:04→21:48)
[2023-03-12 06:57] LABS: BUN Creatinine Ratio 35.3 (10-20); Calcium 8.4 mg/dl (8.6-10.3); Creatinine Clr Calc Pharmacy 93.2 ml/min; Est GFR (African American) 124.6 ml/min; Est GFR (Non-African American) 107.5 ml/min; Magnesium 1.5 mg/dl (1.7-2.4); Potassium 3.4 mmol/L (3.5-5.1)
[2023-03-12] MEDS: LEVALBUTEROL 1.25 MG/3 ML NEB NEB SCH ×3 (07:11→19:39)
[2023-03-12] MEDS: IPRATROPIUM BROMIDE NEB SOLN 0.02% 2.5 ML VIAL INH SCH ×3 (07:11→19:38)
[2023-03-12] MEDS: SODIUM CHLOR 7% 4 ML NEB NEB SCH ×2 (07:11→19:39)
[2023-03-12] MEDS: MAGNESIUM CHLORIDE W/CALCIUM 64MG DELAYED REL TAB PO SCH ×2 (09:59→20:14)
[2023-03-12] MEDS: PANTOprazole 40 MG TAB PO SCH ×2 (09:59→20:15)
[2023-03-12] MEDS: VALSARTAN/SACUBITRIL 103/97MG TAB PO SCH ×2 (09:59→20:15)
[2023-03-12] MEDS: POT PHOSPHATE MONOBASIC W/ SOD TAB PO SCH ×3 (09:59→20:15)
[2023-03-12] MEDS: POTASSIUM CHLORIDE CRTAB 20 MEQ TABCR PO SCH (09:59)
[2023-03-12] MEDS: ADVANCED PROBIOTIC 1250 MG CAPSULE PO SCH (09:59)
[2023-03-12] MEDS: DOXYCYCLINE HYCLATE 100 MG CAP PO SCH ×2 (10:00→20:14)
[2023-03-12] MEDS: APIXABAN 5 MG TABLET PO SCH ×2 (10:00→20:13)
[2023-03-12] MEDS: carvediloL 12.5 MG TAB PO SCH ×2 (10:00→20:13)
[2023-03-12] MEDS: amLODIPine BESYLATE 5 MG TAB PO SCH (10:00)
[2023-03-12] MEDS: guaiFENesin 600 MG TABCR PO SCH ×2 (10:00→20:14)
[2023-03-12] MEDS: CYANOCOBALAMIN (B-12) 500 MCG TABLET PO SCH (10:00)
--- NOTE | 2023-03-12 16:38 | Hospitalist Progress Note ---
Date of Service March 12, 2023 Assessment & Plan (1) Respiratory syncytial virus (RSV): (2) Acute UTI (urinary tract infection): Plan: per previous hospitalist notes with addendum: (1) Weakness: Plan: 77-year-old female with past medical significant for prediabetes, hyperlipidemia, pulmonary hypertension, chronic systolic CHF, hypertension, moderate to severe mitral regurgitation, moderate tricuspid insufficiency, chronic pulmonary embolism, vitamin D deficiency, GERD, osteoporosis, history of hyponatremia, history of BRCA gene mutation, bilateral breast cancer s/p surgery, chemo and radiation, metastatic ovarian cancer s/p debulking surgery, radiation and chemotherapy and supposed to be on Lynparza but currently not taking as per patient and has appointment with heme-onc on March 10 as per patient(as per PCP notes PET scan showing areas in the rectum) comes because of weakness. Poor appetite, ambulatory dysfunction not feeling well. Found to have UTI and RSV. Weakness Ambulatory dysfunction Increasing weakness is most likely from UTI and RSV and hypokalemia Remains otherwise stable without any other significant symptoms Will get PT and OT evaluation-awaiting PT and OT evaluation Waiting for PT and OT evaluation but the patient has been doing much better clinically His weakness is improved Appreciate PT and OT evaluation and recommendation to go to rehab He has been getting better with weakness Will need PT OT evaluation prior to discharge Has had PT and OT evaluation and recommended rehab 03/10 Still on the weak side Management of acute bronchitis, UTI per below PT and OT evaluation 03/11 Weakness improving. Yesterday Management of other problems per below 03/12 Clinically improving Hypertensive emergency Hypertension-noted to be very high at systolic more than 200 at some point On Coreg and Entresto IV labetalol as needed and received intravenous hydralazine as needed placed on nitropaste for persistent elevated BP which was increased to 1 inch to 6 hourly Amlodipine 5 mg was added Blood pressure seems to be stable at 129/65 Will discontinue Nitropaste Blood pressure has been stable 03/12 Improving Electrolyte imbalance Hypokalemia and hypomagnesemia Likely secondary to poor appetite Will give replacement and monitor Has been getting supplement and will monitor Electrolytes have been replaced Strongly advised to eat and drink reasonably Electrolytes are much improved and she will have oral replacement Will continue supplement and monitoring electrolyte Potassium remains low which will be supplemented today and monitor 03/12 Replacements ordered Monitor closely UTI In January she was admitted for UTI and was discharged on Augmentin Recurrent UTI Will place on Invanz until the cultures are available Urine is growing Klebsiella pneumoniae and which is pansensitive We will continue current antibiotic Denies any urinary symptoms 03/12 Continue cefazolin, last day today RSV Supportive care Droplet precautions Does not have any cough and/or shortness of breath at rest More shortness of breath but the chest x-ray did not show any pneumonia and/or congestion Still has cough productive of yellow phlegm No fever and or chills Continues to have cough with reactive phlegm-will start doxycycline orally 03/12 On cefazolin plus doxycycline Xopenex/Atrovent nebs, hypertonic saline nebs, Mucinex, flutter valve, incentive spirometry Improving overall Wean of oxygen Chronic systolic CHF Moderate to severe mitral regurgitation Echo done in January 2023 EF of 40 to 45% Continue Coreg and Entresto Getting gentle fluids Monitor for volume overload-no signs and or symptoms of fluid overload No signs and or symptoms of fluid overload Received 1 dose of intravenous Lasix yesterday without much improvement 03/12 Appears euvolemic at this point Monitor closely Mild elevation troponin-secondary to demand ischemia Left bundle branch block Left bundle branch block was present once in EKG of July 23, 2021 Denies any chest pain We will follow serial enzymes and echo Serial troponins are unremarkable for any ACS Chronic pulmonary embolism On Eliquis Hyperlipidemia On statin GERD Protonix History of bilateral breast cancer BRCA gene positive S/p surgery and chemoradiation History of ovarian cancer metastatic S/p debulking surgery and chemoradiation Seems has an appointment on March 10 DVT prophylaxis On Eliquis Disposition Med/tele Full code Will need to go to rehab Awaiting placement Admission and Anticipated Discharge Date Admission Date: March 03, 2023 Subjective Follow-up for RSV bronchitis, etc. Seen resting in bed, comfortable, sitting up On 2 L of oxygen States she continues to feel improved Breathing is improving, less cough Weakness also seems to be improving No other new symptoms Review of Systems Review of Systems: all noted and negative except for above Physical Exam Physical Exam: General- oriented x 3, not in distress, speaks in sentences with no effort or accessory muscle use Eyes- anicteric Neck- no JVD Lungs- clear breath sounds bilaterally, no rales/wheezes Heart- normal rate, regular rhythm; no murmurs Abdomen- normal bowel sounds, nondistended, soft, nontender Extremities- no pretibial edema, no calf tenderness Neuro- alert, oriented x 3; no gross focal neurologic deficits Skin- warm & dry Results & Data Results & Data Vital Signs (Past 12 Hours) Vital Signs Temp Pulse Pulse Resp BP Pulse Ox O2 Del Method 03/12/23 15:27 36.6 C 78 16 119/69 95 Nasal Cannula 03/12/23 14:51 78 03/12/23 14:01 78 18 98 Nasal Cannula 03/12/23 11:27 36.2 C L 72 16 132/64 97 Nasal Cannula 03/12/23 10:07 Nasal Cannula 03/12/23 08:04 74 03/12/23 07:51 36.6 C 70 16 127/71 97 Nasal Cannula O2 Flow Rate 03/12/23 15:27 2 03/12/23 14:51 03/12/23 14:01 3 03/12/23 11:27 3 03/12/23 10:07 2 03/12/23 08:04 03/12/23 07:51 2 all noted and reviewed including below
[2023-03-12] MEDS: BENZONATATE 100 MG CAPSULE PO PRN ×2 (17:11→20:25)
[2023-03-12] MEDS: ATORVASTATIN 10 MG TAB PO SCH (20:13)
[2023-03-12] MEDS: MIRTAZAPINE TAB 15 MG TAB PO SCH (20:15)
[2023-03-12] MEDS: MELATONIN 3 MG TAB PO PRN (20:25)
[2023-03-13] MEDS ORDERED: METOPROLOL TARTRATE 1 MG/ML VIAL IV STA (05:14)
[2023-03-13] MEDS: ceFAZolin 2000MG 2,000 MG/15 ML SYR IV SCH ×3 (05:30→20:48)
[2023-03-13 07:59] LABS: BUN Creatinine Ratio 41.9 (10-20); Calcium 8.5 mg/dl (8.6-10.3); Est GFR (African American) 115.3 ml/min; Est GFR (Non-African American) 99.5 ml/min
[2023-03-13] MEDS: LEVALBUTEROL 1.25 MG/3 ML NEB NEB SCH (08:26)
[2023-03-13] MEDS: SODIUM CHLOR 7% 4 ML NEB NEB SCH ×2 (08:26→19:01)
[2023-03-13] MEDS: IPRATROPIUM BROMIDE NEB SOLN 0.02% 2.5 ML VIAL INH SCH (08:26)
--- NOTE | 2023-03-13 08:39 | Electrocardiogram Report ---
Test Reason : Blood Pressure : / mmHG Vent. Rate : 112 BPM Atrial Rate : 078 BPM P-R Int : 000 ms QRS Dur : 110 ms QT Int : 338 ms P-R-T Axes : 000 -48 096 degrees QTc Int : 461 ms Atrial fibrillation with rapid ventricular response Left axis deviation Minor Non-specific intra-ventricular conduction delay Old Anteroseptal infarct Nonspecific ST and T wave abnormality Lateral leads Abnormal ECG When compared with ECG of 03-MAR-2023 19:10, Atrial fibrillation has replaced Sinus rhythm HR has increased by 31 bpm Confirmed by Gurwinder Gambino ([id number]) on 03/13/2023 8:39:14 AM Referred By: REFERRED SELF Confirmed By:Gurwinder Gambino
[2023-03-13 08:59] LABS: Magnesium 1.2 mg/dl (1.7-2.4)
[2023-03-13] MEDS: PANTOprazole 40 MG TAB PO SCH ×2 (09:59→20:50)
[2023-03-13] MEDS: ADVANCED PROBIOTIC 1250 MG CAPSULE PO SCH (09:59)
[2023-03-13] MEDS: VALSARTAN/SACUBITRIL 103/97MG TAB PO SCH ×2 (10:00→20:40)
[2023-03-13] MEDS: CYANOCOBALAMIN (B-12) 500 MCG TABLET PO SCH (10:00)
[2023-03-13] MEDS: MAGNESIUM CHLORIDE W/CALCIUM 64MG DELAYED REL TAB PO SCH ×2 (10:00→20:50)
[2023-03-13] MEDS: POT PHOSPHATE MONOBASIC W/ SOD TAB PO SCH ×3 (10:01→20:48)
[2023-03-13] MEDS: guaiFENesin 600 MG TABCR PO SCH ×2 (10:01→20:49)
[2023-03-13] MEDS: DOXYCYCLINE HYCLATE 100 MG CAP PO SCH ×2 (10:01→20:48)
[2023-03-13] MEDS: carvediloL 12.5 MG TAB PO SCH ×2 (10:02→20:48)
[2023-03-13] MEDS: APIXABAN 5 MG TABLET PO SCH ×2 (10:02→20:49)
[2023-03-13] MEDS: amLODIPine BESYLATE 5 MG TAB PO SCH (10:02)
[2023-03-13] MEDS ORDERED: POTASSIUM CHLORIDE CRTAB 20 MEQ TABCR PO STA (10:03)
[2023-03-13] MEDS: POTASSIUM CHLORIDE CRTAB 20 MEQ TABCR PO SCH ×2 (10:03→20:51)
[2023-03-13] MEDS: BENZONATATE 100 MG CAPSULE PO PRN ×2 (11:11→20:51)
[2023-03-13] MEDS: POTASSIUM CHLORIDE / WTR 10 MEQ/100 ML PLCT IV SCH ×4 (11:12→14:59)
[2023-03-13] MEDS: MAGNESIUM SULFATE / D5W 1 GM/100 ML BAG IV SCH ×2 (11:12→13:42)
[2023-03-13 14:53] LABS: BUN Creatinine Ratio 63.6 (10-20); Calcium 8.5 mg/dl (8.6-10.3); Creatinine Clr Calc Pharmacy 97.7 ml/min; Est GFR (African American) 125.8 ml/min; Est GFR (Non-African American) 108.5 ml/min; Magnesium 1.9 mg/dl (1.7-2.4); Potassium 3.6 mmol/L (3.5-5.1)
--- NOTE | 2023-03-13 19:46 | Hospitalist Progress Note ---
Date of Service March 13, 2023 Assessment & Plan (1) Respiratory syncytial virus (RSV): (2) Acute UTI (urinary tract infection): Plan: per previous hospitalist notes with addendum: (1) Weakness: Plan: 77-year-old female with past medical significant for prediabetes, hyperlipidemia, pulmonary hypertension, chronic systolic CHF, hypertension, moderate to severe mitral regurgitation, moderate tricuspid insufficiency, chronic pulmonary embolism, vitamin D deficiency, GERD, osteoporosis, history of hyponatremia, history of BRCA gene mutation, bilateral breast cancer s/p surgery, chemo and radiation, metastatic ovarian cancer s/p debulking surgery, radiation and chemotherapy and supposed to be on Lynparza but currently not taking as per patient and has appointment with heme-onc on March 10 as per patient(as per PCP notes PET scan showing areas in the rectum) comes because of weakness. Poor appetite, ambulatory dysfunction not feeling well. Found to have UTI and RSV. Weakness Ambulatory dysfunction Increasing weakness is most likely from UTI and RSV and hypokalemia Remains otherwise stable without any other significant symptoms Will get PT and OT evaluation-awaiting PT and OT evaluation Waiting for PT and OT evaluation but the patient has been doing much better clinically His weakness is improved Appreciate PT and OT evaluation and recommendation to go to rehab He has been getting better with weakness Will need PT OT evaluation prior to discharge Has had PT and OT evaluation and recommended rehab 03/10 Still on the weak side Management of acute bronchitis, UTI per below PT and OT evaluation 03/11 Weakness improving. Yesterday Management of other problems per below 03/12 Clinically improving 03/13 Continues to improve Wean off oxygen DC scheduled nebs Continue doxycycline Episode of atrial fibrillation Likely secondary to underlying hypokalemia and hypomagnesemia Resolved with Lopressor 5 mg IV 1 dose Replace potassium and magnesium Continue carvedilol 37.5 mg p.o. twice daily Already on Eliquis Hypertensive emergency Hypertension-noted to be very high at systolic more than 200 at some point On Coreg and Entresto IV labetalol as needed and received intravenous hydralazine as needed placed on nitropaste for persistent elevated BP which was increased to 1 inch to 6 hourly Amlodipine 5 mg was added Blood pressure seems to be stable at 129/65 Will discontinue Nitropaste Blood pressure has been stable 03/12 Improving Electrolyte imbalance Hypokalemia and hypomagnesemia Likely secondary to poor appetite Will give replacement and monitor Has been getting supplement and will monitor Electrolytes have been replaced Strongly advised to eat and drink reasonably Electrolytes are much improved and she will have oral replacement Will continue supplement and monitoring electrolyte Potassium remains low which will be supplemented today and monitor 03/13 Replacements ordered Monitor closely UTI In January she was admitted for UTI and was discharged on Augmentin Recurrent UTI Will place on Invanz until the cultures are available Urine is growing Klebsiella pneumoniae and which is pansensitive We will continue current antibiotic Denies any urinary symptoms 03/13 Continue cefazolin, last day today RSV Supportive care Droplet precautions Does not have any cough and/or shortness of breath at rest More shortness of breath but the chest x-ray did not show any pneumonia and/or congestion Still has cough productive of yellow phlegm No fever and or chills Continues to have cough with reactive phlegm-will start doxycycline orally 03/13 On cefazolin plus doxycycline Xopenex/Atrovent nebs, hypertonic saline nebs: Nebulizers completed, Mucinex, flutter valve, incentive spirometry Improving overall Wean of oxygen Chronic systolic CHF Moderate to severe mitral regurgitation Echo done in January 2023 EF of 40 to 45% Continue Coreg and Entresto Getting gentle fluids Monitor for volume overload-no signs and or symptoms of fluid overload No signs and or symptoms of fluid overload Received 1 dose of intravenous Lasix yesterday without much improvement 03/13 Appears euvolemic at this point Monitor closely Mild elevation troponin-secondary to demand ischemia Left bundle branch block Left bundle branch block was present once in EKG of July 23, 2021 Denies any chest pain We will follow serial enzymes and echo Serial troponins are unremarkable for any ACS Chronic pulmonary embolism On Eliquis Hyperlipidemia On statin GERD Protonix History of bilateral breast cancer BRCA gene positive S/p surgery and chemoradiation History of ovarian cancer metastatic S/p debulking surgery and chemoradiation Seems has an appointment on March 10 DVT prophylaxis On Eliquis Disposition Med/tele Full code Will need to go to rehab Awaiting placement Admission and Anticipated Discharge Date Admission Date: March 03, 2023 Subjective Follow-up for RSV bronchitis, etc. Early in the morning patient had what seemed to be atrial fibrillation in RVR for about 2 hours Patient seen resting in bed, sitting up, not in distress States she feels that she is improving overall No palpitations or chest pain reported Appetite improving No other new symptom Review of Systems Review of Systems: all noted and negative except for above Physical Exam Physical Exam: General- oriented x 3, not in distress, speaks in sentences with no effort or accessory muscle use Eyes- anicteric Neck- no JVD Lungs- clear breath sounds bilaterally, no rales/wheezes Heart- normal rate, regular rhythm; no murmurs Abdomen- normal bowel sounds, nondistended, soft, nontender Extremities- no pretibial edema, no calf tenderness Neuro- alert, oriented x 3; no gross focal neurologic deficits Skin- warm & dry Results & Data Results & Data Vital Signs (Past 12 Hours) Vital Signs Temp Pulse Pulse Resp BP Pulse Ox O2 Del Method 03/13/23 19:02 78 18 87 L Room Air 03/13/23 16:10 83 03/13/23 15:00 36.7 C 83 16 144/72 H 93 Nasal Cannula 03/13/23 12:00 36.3 C L 76 16 137/68 95 Room Air 03/13/23 08:13 Nasal Cannula 03/13/23 07:57 36.7 C 76 16 147/62 H 91 Room Air O2 Flow Rate 03/13/23 19:02 03/13/23 16:10 03/13/23 15:00 1 03/13/23 12:00 03/13/23 08:13 2 03/13/23 07:57 all noted and reviewed including below
[2023-03-13] MEDS: ATORVASTATIN 10 MG TAB PO SCH (20:48)
[2023-03-13] MEDS: MIRTAZAPINE TAB 15 MG TAB PO SCH (20:49)
[2023-03-13] MEDS: MELATONIN 3 MG TAB PO PRN (20:50)
[2023-03-13] MEDS: ACETAMINOPHEN 325 MG TAB PO PRN (20:51)
[2023-03-14 06:41] LABS: BUN Creatinine Ratio 54.2 (10-20); Calcium 8.5 mg/dl (8.6-10.3); Creatinine Clr Calc Pharmacy 134.3 ml/min; Est GFR (African American) 139.7 ml/min; Est GFR (Non-African American) 120.5 ml/min; Magnesium 1.5 mg/dl (1.7-2.4); Potassium 3.5 mmol/L (3.5-5.1)
[2023-03-14] MEDS: SODIUM CHLOR 7% 4 ML NEB NEB SCH ×2 (08:11→19:37)
[2023-03-14] MEDS: POT PHOSPHATE MONOBASIC W/ SOD TAB PO SCH ×3 (10:53→21:35)
[2023-03-14] MEDS: POTASSIUM CHLORIDE CRTAB 20 MEQ TABCR PO SCH ×2 (10:53→21:35)
[2023-03-14] MEDS: ADVANCED PROBIOTIC 1250 MG CAPSULE PO SCH (10:54)
[2023-03-14] MEDS: amLODIPine BESYLATE 5 MG TAB PO SCH (10:54)
[2023-03-14] MEDS: CYANOCOBALAMIN (B-12) 500 MCG TABLET PO SCH (10:54)
[2023-03-14] MEDS: MAGNESIUM CHLORIDE W/CALCIUM 64MG DELAYED REL TAB PO SCH ×2 (10:55→21:42)
[2023-03-14] MEDS: VALSARTAN/SACUBITRIL 103/97MG TAB PO SCH ×2 (10:55→21:45)
[2023-03-14] MEDS: APIXABAN 5 MG TABLET PO SCH ×2 (10:55→21:39)
[2023-03-14] MEDS: DOXYCYCLINE HYCLATE 100 MG CAP PO SCH ×2 (10:57→21:40)
[2023-03-14] MEDS: guaiFENesin 600 MG TABCR PO SCH ×2 (10:57→21:40)
[2023-03-14] MEDS: carvediloL 12.5 MG TAB PO SCH ×2 (10:58→21:41)
[2023-03-14] MEDS: MAGNESIUM SULFATE / D5W 1 GM/100 ML BAG IV SCH ×2 (11:07→13:15)
--- NOTE | 2023-03-14 19:31 | Hospitalist Progress Note ---
Date of Service March 14, 2023 Assessment & Plan (1) Respiratory syncytial virus (RSV): (2) Acute UTI (urinary tract infection): Plan: per previous hospitalist notes with addendum: (1) Weakness: Plan: 77-year-old female with past medical significant for prediabetes, hyperlipidemia, pulmonary hypertension, chronic systolic CHF, hypertension, moderate to severe mitral regurgitation, moderate tricuspid insufficiency, chronic pulmonary embolism, vitamin D deficiency, GERD, osteoporosis, history of hyponatremia, history of BRCA gene mutation, bilateral breast cancer s/p surgery, chemo and radiation, metastatic ovarian cancer s/p debulking surgery, radiation and chemotherapy and supposed to be on Lynparza but currently not taking as per patient and has appointment with heme-onc on March 10 as per patient(as per PCP notes PET scan showing areas in the rectum) comes because of weakness. Poor appetite, ambulatory dysfunction not feeling well. Found to have UTI and RSV. WEAKNESS ACUTE BRONCHITIS SECONDARY TO RSV, UTI AMBULATORY DYSFUNCTION Increasing weakness is most likely from UTI and RSV and hypokalemia Remains otherwise stable without any other significant symptoms Will get PT and OT evaluation-awaiting PT and OT evaluation Waiting for PT and OT evaluation but the patient has been doing much better clinically His weakness is improved Appreciate PT and OT evaluation and recommendation to go to rehab He has been getting better with weakness Will need PT OT evaluation prior to discharge Has had PT and OT evaluation and recommended rehab 03/10 Still on the weak side Management of acute bronchitis, UTI per below PT and OT evaluation 03/11 Weakness improving. Yesterday Management of other problems per below 03/12 Clinically improving 03/13 Continues to improve Wean off oxygen DC scheduled nebs Continue doxycycline 03/14 Much better On doxycycline day number 4 out of 7 EPISODE OF ATRIAL FIBRILLATION Likely secondary to underlying hypokalemia and hypomagnesemia Resolved with Lopressor 5 mg IV 1 dose Replace potassium and magnesium Continue carvedilol 37.5 mg p.o. twice daily Already on Eliquis No recurrence HYPERTENSIVE EMERGENCY Hypertension-noted to be very high at systolic more than 200 at some point On Coreg and Entresto IV labetalol as needed and received intravenous hydralazine as needed placed on nitropaste for persistent elevated BP which was increased to 1 inch to 6 hourly Amlodipine 5 mg was added Improving Electrolyte imbalance Hypokalemia and hypomagnesemia Likely secondary to poor appetite Will give replacement and monitor Has been getting supplement and will monitor Electrolytes have been replaced Strongly advised to eat and drink reasonably Electrolytes are much improved and she will have oral replacement Will continue supplement and monitoring electrolyte Potassium remains low which will be supplemented today and monitor Replacements ordered Monitor closely UTI In January she was admitted for UTI and was discharged on Augmentin Recurrent UTI Will place on Invanz until the cultures are available Urine is growing Klebsiella pneumoniae and which is pansensitive Completed course of cefazolin RSV Supportive care Droplet precautions Much improved Chronic systolic CHF Moderate to severe mitral regurgitation Echo done in January 2023 EF of 40 to 45% Continue Coreg and Entresto Now euvolemic next Mild elevation troponin-secondary to demand ischemia Left bundle branch block Left bundle branch block was present once in EKG of July 23, 2021 Denies any chest pain Serial troponins are unremarkable for any ACS Chronic pulmonary embolism On Eliquis Hyperlipidemia On statin GERD Protonix History of bilateral breast cancer BRCA gene positive S/p surgery and chemoradiation History of ovarian cancer metastatic S/p debulking surgery and chemoradiation Seems has an appointment on March 10 DVT prophylaxis On Eliquis Disposition Med/tele Full code Will need to go to rehab Awaiting placement Admission and Anticipated Discharge Date Admission Date: March 03, 2023 Subjective Follow-up for acute bronchitis, weakness, etc. Seen resting in bed, comfortable, not in distress States she continues to feel improved overall Strength is improving Breathing also improved, less cough No chest pain No other new symptoms Review of Systems Review of Systems: all noted and negative except for above Physical Exam Physical Exam: General- oriented x 3, not in distress, speaks in sentences with no effort or accessory muscle use Eyes- anicteric Neck- no JVD Lungs- clear breath sounds bilaterally, no crackles or wheezing Heart- normal rate, regular rhythm; no murmurs Abdomen- normal bowel sounds, nondistended, soft, nontender Extremities- no pretibial edema, no calf tenderness Neuro- alert, oriented x 3; no gross focal neurologic deficits Skin- warm & dry Results & Data Results & Data Vital Signs (Past 12 Hours) Vital Signs Temp Pulse Pulse Resp BP Pulse Ox O2 Del Method 03/14/23 18:18 79 03/14/23 11:23 36.5 C 80 16 157/73 H 88 L Room Air 03/14/23 08:00 Nasal Cannula 03/14/23 07:59 65 03/14/23 07:43 36.5 C 69 16 123/71 97 Nasal Cannula O2 Flow Rate 03/14/23 18:18 03/14/23 11:23 03/14/23 08:00 2 03/14/23 07:59 03/14/23 07:43 1 all noted and reviewed including below
[2023-03-14] MEDS: BENZONATATE 100 MG CAPSULE PO PRN (21:34)
[2023-03-14] MEDS: MELATONIN 3 MG TAB PO PRN (21:36)
[2023-03-14] MEDS: MIRTAZAPINE TAB 15 MG TAB PO SCH (21:42)
[2023-03-14] MEDS: ATORVASTATIN 10 MG TAB PO SCH (21:45)
[2023-03-15] MEDS: SODIUM CHLOR 7% 4 ML NEB NEB SCH ×2 (07:25→20:04)
[2023-03-15] MEDS: APIXABAN 5 MG TABLET PO SCH ×2 (08:46→20:39)
[2023-03-15] MEDS: carvediloL 12.5 MG TAB PO SCH ×2 (08:46→20:39)
[2023-03-15] MEDS: CYANOCOBALAMIN (B-12) 500 MCG TABLET PO SCH (08:46)
[2023-03-15] MEDS: POT PHOSPHATE MONOBASIC W/ SOD TAB PO SCH ×3 (08:47→20:41)
[2023-03-15] MEDS: ADVANCED PROBIOTIC 1250 MG CAPSULE PO SCH (08:47)
[2023-03-15] MEDS: guaiFENesin 600 MG TABCR PO SCH ×2 (08:47→20:39)
[2023-03-15] MEDS: MAGNESIUM CHLORIDE W/CALCIUM 64MG DELAYED REL TAB PO SCH ×2 (08:47→20:40)
[2023-03-15] MEDS: DOXYCYCLINE HYCLATE 100 MG CAP PO SCH ×2 (08:47→20:40)
[2023-03-15] MEDS: POTASSIUM CHLORIDE CRTAB 20 MEQ TABCR PO SCH ×2 (08:48→20:40)
[2023-03-15] MEDS: amLODIPine BESYLATE 5 MG TAB PO SCH (08:48)
[2023-03-15] MEDS: VALSARTAN/SACUBITRIL 103/97MG TAB PO SCH ×2 (08:48→20:39)
[2023-03-15 09:02] LABS: BUN Creatinine Ratio 46.9 (10-20); Calcium 8.7 mg/dl (8.6-10.3); Creatinine Clr Calc Pharmacy 98.8 ml/min; Est GFR (African American) 127.1 ml/min; Est GFR (Non-African American) 109.7 ml/min; Magnesium 1.4 mg/dl (1.7-2.4); Potassium 3.5 mmol/L (3.5-5.1)
--- NOTE | 2023-03-15 15:13 | Hospitalist Progress Note ---
Date of Service March 15, 2023 Assessment & Plan (1) Respiratory syncytial virus (RSV): (2) Acute UTI (urinary tract infection): Plan: per previous hospitalist notes with addendum: (1) Weakness: Plan: 77-year-old female with past medical significant for prediabetes, hyperlipidemia, pulmonary hypertension, chronic systolic CHF, hypertension, moderate to severe mitral regurgitation, moderate tricuspid insufficiency, chronic pulmonary embolism, vitamin D deficiency, GERD, osteoporosis, history of hyponatremia, history of BRCA gene mutation, bilateral breast cancer s/p surgery, chemo and radiation, metastatic ovarian cancer s/p debulking surgery, radiation and chemotherapy and supposed to be on Lynparza but currently not taking as per patient and has appointment with heme-onc on March 10 as per patient(as per PCP notes PET scan showing areas in the rectum) comes because of weakness. Poor appetite, ambulatory dysfunction not feeling well. Found to have UTI and RSV. WEAKNESS ACUTE BRONCHITIS SECONDARY TO RSV, UTI AMBULATORY DYSFUNCTION Increasing weakness is most likely from UTI and RSV and hypokalemia Remains otherwise stable without any other significant symptoms Will get PT and OT evaluation-awaiting PT and OT evaluation Waiting for PT and OT evaluation but the patient has been doing much better clinically His weakness is improved Appreciate PT and OT evaluation and recommendation to go to rehab He has been getting better with weakness Will need PT OT evaluation prior to discharge Has had PT and OT evaluation and recommended rehab 03/10 Still on the weak side Management of acute bronchitis, UTI per below PT and OT evaluation 03/11 Weakness improving. Yesterday Management of other problems per below 03/12 Clinically improving 03/13 Continues to improve Wean off oxygen DC scheduled nebs Continue doxycycline 03/14 Much better On doxycycline day number 4 out of 7 03/15 continue Doxycycline Day 5 EPISODE OF ATRIAL FIBRILLATION Likely secondary to underlying hypokalemia and hypomagnesemia Resolved with Lopressor 5 mg IV 1 dose Replace potassium and magnesium Continue carvedilol 37.5 mg p.o. twice daily Already on Eliquis No recurrence HYPERTENSIVE EMERGENCY Hypertension-noted to be very high at systolic more than 200 at some point On Coreg and Entresto IV labetalol as needed and received intravenous hydralazine as needed placed on nitropaste for persistent elevated BP which was increased to 1 inch to 6 hourly Amlodipine 5 mg was added Improving Electrolyte imbalance Hypokalemia and hypomagnesemia Likely secondary to poor appetite Will give replacement and monitor Has been getting supplement and will monitor Electrolytes have been replaced Strongly advised to eat and drink reasonably Electrolytes are much improved and she will have oral replacement Will continue supplement and monitoring electrolyte Potassium remains low which will be supplemented today and monitor Replacements ordered Monitor closely UTI In January she was admitted for UTI and was discharged on Augmentin Recurrent UTI Will place on Invanz until the cultures are available Urine is growing Klebsiella pneumoniae and which is pansensitive Completed course of cefazolin RSV Supportive care Droplet precautions Much improved Chronic systolic CHF Moderate to severe mitral regurgitation Echo done in January 2023 EF of 40 to 45% Continue Coreg and Entresto Now euvolemic next Mild elevation troponin-secondary to demand ischemia Left bundle branch block Left bundle branch block was present once in EKG of July 23, 2021 Denies any chest pain Serial troponins are unremarkable for any ACS Chronic pulmonary embolism On Eliquis Hyperlipidemia On statin GERD Protonix History of bilateral breast cancer BRCA gene positive S/p surgery and chemoradiation History of ovarian cancer metastatic S/p debulking surgery and chemoradiation Seems has an appointment on March 10 DVT prophylaxis On Eliquis Disposition Med/tele Full code Will need to go to rehab Awaiting placement Admission and Anticipated Discharge Date Admission Date: March 03, 2023 Subjective ff up for acute bronchitis, etc seen resting in bed, comfortable on room air feels better overall feels stronger prefers to go home with home health Review of Systems Review of Systems: all noted and negative except for above Physical Exam Physical Exam: General- oriented x 3, not in distress, speaks in sentences with no effort or accessory muscle use Eyes- anicteric Neck- no JVD Lungs- clear breath sounds bilaterally Heart- normal rate, regular rhythm; no murmurs Abdomen- normal bowel sounds, nondistended, soft, nontender Extremities- no pretibial edema, no calf tenderness Neuro- alert, oriented x 3; no gross focal neurologic deficits Skin- warm & dry Results & Data Results & Data Vital Signs (Past 12 Hours) Vital Signs Temp Pulse Pulse Resp BP Pulse Ox O2 Del Method 03/15/23 14:58 78 03/15/23 08:18 Nasal Cannula 03/15/23 07:59 68 18 95 Nasal Cannula 03/15/23 07:42 36.7 C 66 20 129/67 90 Room Air 03/15/23 07:20 68 O2 Flow Rate 03/15/23 14:58 03/15/23 08:18 2 03/15/23 07:59 2 03/15/23 07:42 03/15/23 07:20 all noted and reviewed including below
[2023-03-15] MEDS: MAGNESIUM SULFATE / D5W 1 GM/100 ML BAG IV SCH ×2 (16:30→18:39)
[2023-03-15] MEDS: MIRTAZAPINE TAB 15 MG TAB PO SCH (20:41)
[2023-03-15] MEDS: ATORVASTATIN 10 MG TAB PO SCH (20:41)
[2023-03-15] MEDS: MELATONIN 3 MG TAB PO PRN (20:47)
[2023-03-16] MEDS: SODIUM CHLOR 7% 4 ML NEB NEB SCH (07:34)
[2023-03-16 09:18] LABS: BUN Creatinine Ratio 51.9 (10-20); Creatinine Clr Calc Pharmacy 112.5 ml/min; Est GFR (African American) 134.4 ml/min; Magnesium 1.5 mg/dl (1.7-2.4); Potassium 3.6 mmol/L (3.5-5.1)
[2023-03-16] MEDS: CYANOCOBALAMIN (B-12) 500 MCG TABLET PO SCH (09:21)
[2023-03-16] MEDS: POTASSIUM CHLORIDE CRTAB 20 MEQ TABCR PO SCH (09:21)
[2023-03-16] MEDS: carvediloL 12.5 MG TAB PO SCH (09:21)
[2023-03-16] MEDS: guaiFENesin 600 MG TABCR PO SCH (09:21)
[2023-03-16] MEDS: VALSARTAN/SACUBITRIL 103/97MG TAB PO SCH (09:21)
[2023-03-16] MEDS: APIXABAN 5 MG TABLET PO SCH (09:21)
[2023-03-16] MEDS: ADVANCED PROBIOTIC 1250 MG CAPSULE PO SCH (09:21)
[2023-03-16] MEDS: DOXYCYCLINE HYCLATE 100 MG CAP PO SCH (09:21)
[2023-03-16] MEDS: MAGNESIUM CHLORIDE W/CALCIUM 64MG DELAYED REL TAB PO SCH (09:21)
[2023-03-16] MEDS: amLODIPine BESYLATE 5 MG TAB PO SCH (09:21)
[2023-03-16] MEDS: POT PHOSPHATE MONOBASIC W/ SOD TAB PO SCH ×2 (09:21→13:40)
[2023-03-16] MEDS: BENZONATATE 100 MG CAPSULE PO PRN ×2 (09:26→13:45)
== END 2023-03-16 17:32 | disposition home health service (06) | DRG 690 ==
LOC: ED 19:04 → SUATTDRO 22:36 → 2N 22:36

== ENCOUNTER 2024-10-20 14:09 | Inpatient (IN) ==
[2024-10-20 14:52] LABS: Hematocrit (blood only) 29.2 % (37.0-47.0); Hemoglobin 10.7 g/dl (12.0-16.0); Immature Granulocytes # (auto) 0.03 K/uL (0.01-0.20); Immature Granulocytes % (auto) 0.3 %; Mean Corpuscular Hemoglobin 32.3 pg (25.0-34.0); Mean Corpuscular Volume 88.2 fL (80.0-100.0); Platelet Count 282 K/uL (130-400); RDW Standard Deviation 41.5 fL (36.4-46.3); Red Blood Count 3.31 M/uL (4.20-5.40); White Blood Count 9.24 K/ul (4.8-10.8)
[2024-10-20] MEDS: SODIUM CHLORIDE 0.9% 1,000 ML IV ONE (14:54)
[2024-10-20] MEDS: POTASSIUM CHLORIDE / WTR 10 MEQ/100 ML PLCT IV ONE (14:54)
--- NOTE | 2024-10-20 15:18 | Emergency Department Note ---
Impression & Plan Hypotension, Weakness, Anemia, Acute hyponatremia, Dehydration, Hypokalemia, Falling ED Provider Note NAME: KIRSTEN YEE AGE: 79 SEX: F : 1945 ARRIVES VIA: Ambulance INFORMANT: [Patient] ED PROVIDER(S): [Dmitriy Sierra MD] CHIEF COMPLAINT: Weakness HISTORY OF PRESENT ILLNESS: The patient is a 79-year-old female who has had increasing weakness for multiple days if not weeks. She falls fairly frequently onto her buttock. She states she just suddenly feels weak and both legs give out. She is unsure if she struck her head. No loss of conscious. Of note, she does take Eliquis. Today, with her fall, she could not get up on her own. The ambulance was called. Patient has not had fever, no cough or congestion. She has no headache or neck pain. She does not have any abdominal pain or chest pain. No urinary complaints. The patient does admit that her buttock is sore from falling on it so many times. PMHx/PSHx/Social Hx: See Below PHYSICAL EXAM: Primary Survey Airway: Intact Breathing: Breath sounds equal bilaterally. No respiratory distress Circulation: Skin warm, capillary refill less than 2 seconds Disability: Pupils equal and reactive to light Motor Function: Moves all extremities. Sensory: No deficits Secondary Survey GEN: Well developed and well-nourished HEAD: Normocephalic, atraumatic. Mucous membranes dry. EYES: Pupils round and reactive to light, conjunctiva clear, extraocular movements intact ENT: No fluid in external acoustic canals, nares patent, oropharynx clear NECK: Midline trachea, no cervical spine tenderness HEART: Irregular rhythm, normal rate. No obvious murmur. LUNGS: Clear to auscultation bilaterally CHEST: Chest wall non-tender, no bruising/deformity ABD: No contusions, soft, non-tender, no distention PELVIS: Stable to rock BACK: No step offs or deformities, T-L spine non tender EXT: Moving all extremities well, no gross deformities NEURO: No focal motor deficits, no sensory deficits. Poor historian. DIFFERENTIAL DIAGNOSIS: Intracranial bleeding, dehydration, anemia, UTI, electrolyte imbalance, thoracic or lumbar spine injury, among others. EMERGENCY DEPARTMENT PROCEDURES: C-spine was clinically cleared at 1715, once the CT imaging returned. MEDICAL DECISION MAKING: There is no leukocytosis. The patient is anemic however, this appears to be a chronic issue. There is a normal platelet count. No coagulopathy. There is evidence for some acute kidney injury with a higher creatinine value today. She has hyponatremia and hypokalemia. No concerning liver enzyme elevation. No evidence for pancreatitis. ECG shows some sinus rhythm, no acute ischemia. Cardiac enzyme testing x 1 is slightly elevated however, this appears to be consistent with her recent troponin testing. Chest x-ray does not show pneumonia or CHF. Brain CT shows no acute bleed or mass effect. C-spine CT shows no acute fracture. Thoracic and lumbar spine CT does not show any acute fracture. On exam, the patient appeared dehydrated and diffusely weak. There were no focal neurologic deficits. She was not febrile. Initially, she was borderline hypotensive. The patient received IV saline, 1.5 L. The patient did have significant improvement in her blood pressure with this intervention. She was given IV potassium for the lower potassium value. Urinalysis result is currently pending. The patient is clearly in need of a hospital stay. She is not safe for discharge home. She is hyponatremic, hypokalemic, borderline hypotensive. She has been falling--luckily, no serious traumatic findings by our ED workup. I did speak with the patient and case management, the on-call hospitalist was consulted. Of note, I was informed by the monitor material clerk that there may have been a 5 to 6- second run of V. tach. Apparently, the patient was asymptomatic during this timeframe. Further cardiac monitoring can be performed during this hospitalization. Prior/Outside records/notes reviewed: Today's EMS notes describing her presentation and transport to this hospital. ECG per my interpretation: Indication was weakness. The ECG shows a normal sinus rhythm with a rate of 85. There is some artifact present. There is no acute ST elevation, no PVCs. QTc was 456. Continuous Cardiac Monitoring per my interpretation: An order was placed for continuous cardiac monitoring. The monitor shows a rate of 70 with normal sinus rhythm. Imaging/x-ray results per my interpretation: Chest x-ray shows some chronic change. There was some cardiomegaly. No acute focal infiltrate. Chronic Medical/Social conditions affecting care: Advanced age Care/Management discussed with: Case management, the on-call hospitalist. Level of care consideration(s): After review of the information above and other included data: --I believe the patient requires escalation of care to admission Critical Care Note: I have personally spent 46 minutes of critical care time in the direct management of this patient. This includes bedside care, interpretation of diagnostic studies, and testing, discussion with consultants, patient, and family members, and other required patient management activities. This 46 minutes is in excess of all separately billable procedures. DISPOSITION: Admission Past Med/Surg History Problem List Hypotension (Acute) Falling (Acute) Hypokalemia (Acute) Dehydration (Acute) Acute hyponatremia (Acute) Anemia (Acute) Weakness (Acute) Acute UTI (urinary tract infection) (Acute) Elevated troponin (Acute) Respiratory syncytial virus (RSV) (Acute) Weakness UTI (urinary tract infection) Acute metabolic encephalopathy Confusion (Acute) Hypokalemia (Acute) Hypomagnesemia (Acute) Dehydration (Acute) Fatigue (Acute) Anticoagulant long-term use Congestive heart failure Chronic pulmonary embolism Electrolyte and fluid disorder Acute hypoxemic respiratory failure Acute CHF (congestive heart failure) (Acute) Elevated troponin (Acute) COVID-19 (Acute) Constipation Allergic drug reaction (Acute) Anaphylaxis (Acute) Acute bronchospasm (Acute) Acute hyponatremia (Acute) Mitral regurgitation Nonischemic cardiomyopathy Encounter for pre-operative examination Pelvic mass DVT prophylaxis Hyponatremia Anemia Ovarian cancer Hypertension Medical History Arthritis Limb alert care status RUE History of uterine fibroid Degenerative disc disease Spinal stenosis Chronic back pain Osteoarthritis Osteoporosis History of kidney stones History of gastric ulcer History of breast cancer Rt - 17 years ago - S/p Rt mastectomy, chemo + radiation, Lt - 2018 - s/p lumpectomy x 2, raidation 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 followed with physical therapy. History of depression Valvular heart disease [place] [facility] [facility]abazz; moderate MR, mild global hypokinesis LV, RVSP 40-50mmHg Malignant neoplasm of central portion of left breast in female, estrogen receptor negative 2016 Surgical History Port-A-Cath in place (06/09/21) Insertion of Access Port with Fluoroscopy(Left) - Amador Archibald DO, FACS 06/09/2021 H/O: hysterectomy H/O knee surgery left knee reconstruction Status post correction of deviated nasal septum History of tooth extraction History of foot surgery BL History of lumpectomy of left breast x 2 2019 Hx of right mastectomy with lymph node removal 1991 History of breast biopsy Family History Father Esophageal cancer Social History Smoking Status: Former smoker Tobacco Type: Cigarettes Second Hand Exposure: No; Do You Dip or Chew Tobacco: No; Hx Alcohol Use: No Hx Substance Use: No Preferred Language: Greenlandic Communication Ability: Effective Housing Grant Analyst Required: No Beliefs That Will Affect Care: None Current Living Situation: Alone and Other Current Living Situation Comment[facility] Feels Safe at Home: Yes Assistive Devices: Cane Allergies Allergies Allergy/AdvReac Type Severity Reaction Status Date / Time diphenhydramine Allergy Severe Difficulty Verified 10/20/24 17:47 [From Benadryl] Breathing doxorubicin Allergy Severe CHEMO Verified 10/20/24 17:47 DRUG--UNKNOWN house dust Allergy Intermediate CONGESTION-ODORS, Verified 10/20/24 17:47 FUMES, DUST Home Meds Home Medications Medication Instructions Recorded Confirmed atorvastatin 10 mg tablet (Lipitor) 10 mg PO HS 09/22/19 10/20/24 cyanocobalamin (vitamin B-12) 500 1,000 mcg PO DAILY 07/23/21 10/20/24 mcg tablet (Vitamin B-12) apixaban 5 mg tablet (Eliquis) 5 mg PO BID 12/05/21 10/20/24 bismuth subsalicylate 262 mg 2 tab PO DIRECTED PRN UPSET 10/20/24 10/20/24 chewable tablet STOMACH cholecalciferol (vitamin D3) 25 25 mcg PO DAILY 10/20/24 10/20/24 mcg (1,000 unit) capsule (Vitamin D3) denosumab 60 mg/mL subcutaneous 60 mg subcut DIRECTED 10/20/24 10/20/24 syringe (Prolia) docusate sodium 100 mg capsule 100 mg PO BID 10/20/24 10/20/24 magnesium chloride 64 mg 64 mg PO BID 10/20/24 10/20/24 (magnesium chloride) tablet,delayed release (Mag-Delay) magnesium oxide 400 mg PO DAILY 10/20/24 10/20/24 melatonin 3 mg-chamomile flower 1 tab PO HS 10/20/24 10/20/24 500 mcg tablet pantoprazole 40 mg tablet,delayed 40 mg PO BID 10/20/24 10/20/24 release sacubitril 97 mg-valsartan 103 mg 1 tab PO BID 10/20/24 10/20/24 tablet (Entresto) Previous Rx's Medication Instructions Recorded amlodipine 5 mg tablet (Norvasc) 5 mg PO QAM 30 days #30 tabs 03/16/23 potassium chloride 20 mEq 20 meq PO BID 90 days #180 tabs 11/16/23 tablet,extended release carvedilol 12.5 mg tablet 37.5 mg (3 x 12.5 mg) PO BID 30 03/23/24 days #540 tabs Results & Data (ED) Vital Signs Vital Signs - 24 hr 10/20/24 14:16 10/20/24 14:21 10/20/24 14:26 Temperature 36.8 C Temperature Source Oral Pulse Rate 80 70 Pulse Rate [Left] 69 Respiratory Rate 20 20 Respiratory Effort / Characteristics Non-Labored Respiratory Depth Normal Blood Pressure 97/55 L Blood Pressure [Left Arm] 94/43 L Blood Pressure Mean 69 Blood Pressure Mean [Left Arm] 60 Pulse Oximetry 97 100 Oxygen Delivery Method Room Air Room Air Sepsis Recent Fever Within 48 Hours No Sepsis New/Unexplained Change in Mental Status No Sepsis Action Taken by Nursing No Action Required 10/20/24 14:33 10/20/24 15:02 10/20/24 15:21 Temperature Temperature Source Pulse Rate Pulse Rate [Left] 70 Respiratory Rate 17 Respiratory Effort / Characteristics Respiratory Depth Blood Pressure Blood Pressure [Left Arm] 128/58 L 128/58 L Blood Pressure Mean Blood Pressure Mean [Left Arm] 81 81 Pulse Oximetry 93 Oxygen Delivery Method Room Air Room Air Sepsis Recent Fever Within 48 Hours Sepsis New/Unexplained Change in Mental Status Sepsis Action Taken by Nursing 10/20/24 16:00 10/20/24 17:00 10/20/24 18:00 Temperature Temperature Source Pulse Rate Pulse Rate [Left] 74 78 78 Respiratory Rate 16 20 16 Respiratory Effort / Characteristics Respiratory Depth Blood Pressure Blood Pressure [Left Arm] 147/94 H 151/87 H 141/76 H Blood Pressure Mean Blood Pressure Mean [Left Arm] 111 108 97 Pulse Oximetry 96 95 93 Oxygen Delivery Method Room Air Room Air Room Air Sepsis Recent Fever Within 48 Hours Sepsis New/Unexplained Change in Mental Status Sepsis Action Taken by Nursing 10/20/24 18:27 Temperature Temperature Source Pulse Rate 76 Pulse Rate [Left] Respiratory Rate Respiratory Effort / Characteristics Respiratory Depth Blood Pressure Blood Pressure [Left Arm] Blood Pressure Mean Blood Pressure Mean [Left Arm] Pulse Oximetry Oxygen Delivery Method Sepsis Recent Fever Within 48 Hours Sepsis New/Unexplained Change in Mental Status Sepsis Action Taken by [facility] Medications Current Medication List: was personally reviewed by me Laboratory Data Attestation: I reviewed the patient's lab results. 10/20/24 14:20 10/20/24 14:20 Lab Results 10/20/24 10/20/24 Range/Units 14:20 14:42 WBC 9.24 (4.8-10.8) K/ul RBC 3.31 L (4.20-5.40) M/uL Hgb 10.7 L (12.0-16.0) g/dl POC Hgb 11.2 L (12.0-16.0) g/dl Hct 29.2 L (37.0-47.0) % POC Hct 33 L (37-47) % MCV 88.2 (80.0-100.0) fL MCH 32.3 (25.0-34.0) pg MCHC 36.6 H (32.0-36.0) g/dL RDW Std Deviation 41.5 (36.4-46.3) fL RDW Coeff of Cain 12.8 (11.5-14.5) % Plt Count 282 (130-400) K/uL MPV 9.8 (9.4-12.4) fL Immature Gran % (Auto) 0.3 % Neut % (Auto) 83.9 % Lymph % (Auto) 7.5 % Furn[place] % (Auto) 8.0 % Eos % (Auto) 0.2 % Baso % (Auto) 0.1 % Neut # (Auto) 7.75 H (1.40-6.50) K/uL Lymph # (Auto) 0.69 L (1.20-3.40) K/uL Furn[place] # (Auto) 0.74 H (0.11-0.59) K/uL Eos # (Auto) 0.02 (0.00-0.50) K/uL Baso # (Auto) 0.01 (0.00-0.20) K/uL Immature Gran # (Auto) 0.03 (0.01-0.20) K/uL PT 10.8 (9.0-12.0) Seconds INR 1.0 (0.9-1.1) APTT 28 (21-31) Seconds PTT Ratio 1.0 POC Sodium 118 L* (135-144) mmol/L Sodium 119 L* (136-145) mmol/L POC Potassium 2.8 L (3.3-5.0) mmol/L Potassium 2.9 L (3.5-5.1) mmol/L POC Chloride 77 L (101-112) mmol/L Chloride 78 L (98-107) mmol/L Carbon Dioxide 30 (21-32) mmol/L POC Total CO2 27 (24-31) mmol/L Anion Gap 11 (3-11) POC Anion Gap 18.0 (16-25) mmol/L POC BUN 58 H (7-18) mg/dl BUN 62 H (6-23) mg/dl Creatinine 1.31 H (0.6-1.2) mg/dl POC Creatinine 1.6 H (0.6-1.3) mg/dl Est Cr Clr Drug Dosing Not Reportable eGFR 41.96 BUN/Creatinine Ratio 47.3 H (10-20) Glucose 123 H (70-99(Fasting)) mg/dl POC Glucose (other) 126 H (70-99) mg/dl Calcium 8.7 (8.6-10.3) mg/dl POC Ioniz Calcium Grayson 1.04 L (1.12-1.32) mmol/l Total Bilirubin 0.5 (0.2-1.0) mg/dl AST 30 (13-39) U/L ALT 26 (7-52) U/L Alkaline Phosphatase 139 H (34-104) U/L Troponin I High Sens 18.5 H (0-14) pg/ml Total Protein 6.6 (6.0-8.3) gm/dl Albumin 3.6 (3.4-5.0) gm/dl Globulin 3.0 (2.5-4.0) gm/dl Albumin/Globulin Ratio 1.2 (0.9-2) Lipase 27 (11-82) U/L Administered Medications Discontinued Medications Sodium Chloride (Nss) 1,000 mls @ 999 mls/hr IV .Q1H1M ONE Stop: 10/20/24 15:32 Last Infusion: 10/20/24 17:09 Dose: Infused Documented By: Admin: 10/20/24 14:54 Dose: 999 mls/hr Documented By: NÉSTOR Potassium Chloride (K Ash / Wtr) 10 meq in 100 mls @ 100 mls/hr IV ONE ONE Stop: 10/20/24 15:47 Last Infusion: 10/20/24 16:23 Dose: Infused Documented By: Admin: 10/20/24 14:54 Dose: 100 mls/hr Documented By: NÉSTOR Sodium Chloride (Nss) 500 mls @ 999 mls/hr IV .Q31M ONE Stop: 10/20/24 17:55 Last Infusion: 10/20/24 18:11 Dose: Infused Documented By: Admin: 10/20/24 17:37 Dose: 999 mls/hr Documented By: NÉSTOR Imaging Data Radiologist's Impression: Cervical Spine CT 10/20/24 14:33 CT CERVICAL SPINE WITHOUT CONTRAST: HISTORY: TRAUMA TECHNIQUE: Noncontrast CT examination of the cervical spine is performed. Coronal and sagittal reformats were created. COMPARISON: None. FINDINGS: CERVICAL SPINE: There is no significant vertebral body height loss. No acute traumatic fracture identified. Mild anterior offsets of the C3 on C4 and C4 on C5. Multilevel degenerative changes characterized by disc osteophyte complex, bilateral facet and uncovertebral hypertrophy resulting and neural foraminal narrowing at multiple levels, worst at [id number] spine Visualized soft tissues of neck are unremarkable. Right apical pulmonary scarring. IMPRESSION: No acute traumatic fracture of the cervical spine. Multilevel degenerative changes as above Electronically signed by Kameron Faye 10-20-2024 5:07 PM Chest X-Ray 10/20/24 14:33 XR chest 1V portable CLINICAL HISTORY: Trauma COMPARISON STUDY: Chest CT April 01, 2022. Chest radiograph March 07, 2023. FINDINGS: Left internal jugular Soebru-t-Pmnd remains in place. Cardiomegaly is unchanged. Mediastinal contours are stable. Right upper lung density is unchanged and favor scarring. Right axillary surgical clips are again noted. There is no pneumothorax or pleural effusion. Pulmonary vascularity is normal. IMPRESSION: No acute cardiopulmonary findings. No significant change in appearance of the chest. ACT 112: Negative or not required by law. Electronically signed by: Curtis Whyte M.D. 10/20/2024 3:[address] 10/20/24 14:33 Clinical History: Injury Technique: Axial computed tomography images were obtained of the brain without intravenous contrast. Findings: There is diffuse cerebral atrophy, within expected limits for the patient's age. Areas of decreased attenuation are seen within the periventricular white matter, likely representing chronic small vessel ischemic disease. There is no definite sign of acute or old infarction. No intracranial hemorrhage is evident. No definite mass lesion is seen on this noncontrast examination. There is no midline shift or other form of herniation. No hydrocephalus is seen. No fracture is identified. There is complete opacitication of the right maxillary, right frontal, and right ethmoid sinuses. The mastoid air cells appear clear. Impression: 1. Cerebral atrophy and chronic small vessel ischemic disease 2. Sinusitis Electronically signed by Mando Roberto 10-20-2024 4:[address] 10/20/24 14:33 CT THORACIC and LUMBAR SPINE WITHOUT CONTRAST: HISTORY: TRAUMA TECHNIQUE: Noncontrast CT examination of the thoracic and lumbar spine is performed. Coronal and sagittal reformats were created. COMPARISON: FINDINGS: THORACIC SPINE: There is no significant vertebral body height loss. No acute traumatic fracture identified. There is no significant spondylolisthesis. Usual thoracic kyphosis is preserved. Multilevel degenerative changes characterized by disc space loss with endplate changes of the vertebral bodies with small marginal osteophytes. Right apical pulmonary scarring. Right basilar subpleural pulmonary nodule measuring 6 mm (series 1100, image 21). LUMBAR SPINE: There is no significant vertebral body height loss. No acute traumatic fracture identified. Grade I anterolistheses of L3 on L4 and L4 on L5. Usual lumbar lordosis is preserved. Multilevel degenerative changes characterized by disc space loss, broad based disc bulge/herniations with endplate changes of the vertebral bodies with small marginal osteophytes as well as bilateral facet hypertrophy and thickening of the ligamentum flavum resulting in crowding of the subarticular recesses and narrowing of neural foramina worst at L4-S1. Nonspecific sclerotic foci and L2 vertebral body and additional scattered subcentimeter described foci in the lumbosacral spine Multiple ill-defined hepatic hypoattenuations. Incompletely characterized 4.5 cm soft tissue density structure in the mid pelvis IMPRESSION: No acute traumatic fracture of the thoracic or lumbar spine. Multilevel degenerative changes as above Nonspecific sclerotic foci and L2 vertebral body and additional scattered subcentimeter described foci in the lumbosacral spine Multiple ill-defined hepatic hypoattenuations which may represent hepatic metastases in the proper clinical context. Recommend clinical correlation with medical history. Incompletely characterized 4.5 cm soft tissue density structure in the mid pelvis Right basilar subpleural pulmonary nodule measuring 6 mm Electronically signed by Kmaeron Faye 10-20-2024 5:[address] 10/20/24 14:33 CT THORACIC and LUMBAR SPINE WITHOUT CONTRAST: HISTORY: TRAUMA TECHNIQUE: Noncontrast CT examination of the thoracic and lumbar spine is performed. Coronal and sagittal reformats were created. COMPARISON: FINDINGS: THORACIC SPINE: There is no significant vertebral body height loss. No acute traumatic fracture identified. There is no significant spondylolisthesis. Usual thoracic kyphosis is preserved. Multilevel degenerative changes characterized by disc space loss with endplate changes of the vertebral bodies with small marginal osteophytes. Right apical pulmonary scarring. Right basilar subpleural pulmonary nodule measuring 6 mm (series 1100, image 21). LUMBAR SPINE: There is no significant vertebral body height loss. No acute traumatic fracture identified. Grade I anterolistheses of L3 on L4 and L4 on L5. Usual lumbar lordosis is preserved. Multilevel degenerative changes characterized by disc space loss, broad based disc bulge/herniations with endplate changes of the vertebral bodies with small marginal osteophytes as well as bilateral facet hypertrophy and thickening of the ligamentum flavum resulting in crowding of the subarticular recesses and narrowing of neural foramina worst at L4-S1. Nonspecific sclerotic foci and L2 vertebral body and additional scattered subcentimeter described foci in the lumbosacral spine Multiple ill-defined hepatic hypoattenuations. Incompletely characterized 4.5 cm soft tissue density structure in the mid pelvis IMPRESSION: No acute traumatic fracture of the thoracic or lumbar spine. Multilevel degenerative changes as above Nonspecific sclerotic foci and L2 vertebral body and additional scattered subcentimeter described foci in the lumbosacral spine Multiple ill-defined hepatic hypoattenuations which may represent hepatic metastases in the proper clinical context. Recommend clinical correlation with medical history. Incompletely characterized 4.5 cm soft tissue density structure in the mid pelvis Right basilar subpleural pulmonary nodule measuring 6 mm Electronically signed by Kameron Faye 10-20-2024 5:07 PM Discharge Plan Visit Data Chief Complaint: Illness Stated Complaint: WEAKNESS, DIZZINESS, FALLS ED Provider: Dmitriy Sierra Discharge Problem: Hypotension, Weakness, Anemia, Acute hyponatremia, Dehydration, Hypokalemia, Falling Patient Disposition: Admitted As Inpatient Condition: Serious Forms Stand Alone Forms: My [facility] Prescriptions Prescriptions: No Action potassium chloride 20 mEq tablet extended release 20 meq PO BID 90 Days Qty: 180 3RF carvedilol 12.5 mg tablet 37.5 mg PO BID 30 Days Qty: 540 3RF Rx Instructions: PER EXT MED HX. TAKES 3 TABS BID. Eliquis 5 mg tablet 5 mg PO BID Rx Instructions: currently i=on hold atorvastatin [Lipitor] 10 mg tablet 10 mg PO HS cyanocobalamin (vitamin B-12) [Vitamin B-12] 500 mcg Tablet 1,000 mcg PO DAILY amlodipine [Norvasc] 5 mg Tablet 5 mg PO QAM 30 Days Qty: 30 1RF pantoprazole 40 mg tablet,delayed release (DR/EC) 40 mg PO BID docusate sodium 100 mg Capsule 100 mg PO BID bismuth subsalicylate 262 mg Tablet,Chewable 2 tab PO DIRECTED PRN (Reason: UPSET STOMACH) cholecalciferol (vitamin D3) [Vitamin D3] 25 mcg (1,000 unit) Capsule 25 mcg PO DAILY magnesium chloride [Mag-Delay] 64 mg Tablet,Delayed Release (Dr/Ec) 64 mg PO BID Prolia 60 mg/mL Syringe 60 mg SUBCUT DIRECTED melatonin-chamomile flower 3-500 mg-mcg Tablet 1 tab PO HS magnesium oxide 400 mg magnesium Tablet 400 mg PO DAILY sacubitril-valsartan [Entresto] 97-103 mg tablet 1 tab PO BID Referrals Referrals: Marilyn West DO [Primary Care Provider] - Discharge Problem: Hypotension Qualifiers: Hypotension type: unspecified hypotension type Qualified Code(s): I95.9 - Hypotension, unspecified Anemia Qualifiers: Anemia type: unspecified type Qualified Code(s): D64.9 - Anemia, unspecified
[2024-10-20 15:29] LABS: Alanine Aminotransferase 26 U/L (7-52); Albumin Globulin Ratio 1.2 (0.9-2); Alkaline Phosphatase 139 U/L (34-104); Anion Gap 11 (3-11); Bilirubin,Total 0.5 mg/dl (0.2-1.0); Blood Urea Nitrogen 62 mg/dl (6-23); Calcium 8.7 mg/dl (8.6-10.3); Carbon Dioxide 30 mmol/L (21-32); Chloride 78 mmol/L (98-107); Globulin 3.0 gm/dl (2.5-4.0); Glucose 123 mg/dl (70-99(Fasting)); Lipase 27 U/L (11-82); Potassium 2.9 mmol/L (3.5-5.1); Sodium 119 mmol/L (136-145); Total Protein 6.6 gm/dl (6.0-8.3)
[2024-10-20 15:37] LABS: INR 1.0 (0.9-1.1); Partial Thromboplastin Time 28 Seconds (21-31); Prothrombin Time 10.8 Seconds (9.0-12.0)
--- NOTE | 2024-10-20 15:38 | XRay Report ---
XR chest 1V portable CLINICAL HISTORY: Trauma COMPARISON STUDY: Chest CT April 01, 2022. Chest radiograph March 07, 2023. FINDINGS: Left internal jugular Alnezy-f-Cbjl remains in place. Cardiomegaly is unchanged. Mediastina l contours are stable. Right upper lung density is unchanged and favor scarring. Right axillary surgi ruth clips are again noted. There is no pneumothorax or pleural effusion. Pulmonary vascularity is nor mal. IMPRESSION: No acute cardiopulmonary findings. No significant change in appearance of the chest. ACT 112: Negative or not required by law. Electronically signed by: Curtis Whyte M.D. 10/20/2024 3:36 PM
--- NOTE | 2024-10-20 16:44 | CT Scan Report ---
Clinical History: Injury Technique: Axial computed tomography images were obtained of the brain without intravenous contrast. Findings: There is diffuse cerebral atrophy, within expected limits for the patient's age. Areas of decreased attenuation are seen within the periventricular white matter, likely representing chronic small vessel ischemic disease. There is no definite sign of acute or old infarction. No intracranial hemorrhage is evident. No definite mass lesion is seen on this noncontrast examination. There is no midline shift or other form of herniation. No hydrocephalus is seen. No fracture is identified. There is complete opacitication of the right maxillary, right frontal, and right ethmoid sinuses. The mastoid air cells appear clear. Impression: 1. Cerebral atrophy and chronic small vessel ischemic disease 2. Sinusitis Electronically signed by Mando Roberto 10-20-2024 4:44 PM
--- NOTE | 2024-10-20 17:08 | CT Scan Report ---
CT CERVICAL SPINE WITHOUT CONTRAST: HISTORY: TRAUMA TECHNIQUE: Noncontrast CT examination of the cervical spine is performed. Coronal and sagittal reformats were created. COMPARISON: None. FINDINGS: CERVICAL SPINE: There is no significant vertebral body height loss. No acute traumatic fracture identified. Mild anterior offsets of the C3 on C4 and C4 on C5. Multilevel degenerative changes characterized by disc osteophyte complex, bilateral facet and uncovertebral hypertrophy resulting and neural foraminal narrowing at multiple levels, worst at [id number] spine Visualized soft tissues of neck are unremarkable. Right apical pulmonary scarring. IMPRESSION: No acute traumatic fracture of the cervical spine. Multilevel degenerative changes as above Electronically signed by Kameron Faye 10-20-2024 5:07 PM
--- NOTE | 2024-10-20 17:08 | CT Scan Report ---
CT THORACIC and LUMBAR SPINE WITHOUT CONTRAST: HISTORY: TRAUMA TECHNIQUE: Noncontrast CT examination of the thoracic and lumbar spine is performed. Coronal and sagittal reformats were created. COMPARISON: FINDINGS: THORACIC SPINE: There is no significant vertebral body height loss. No acute traumatic fracture identified. There is no significant spondylolisthesis. Usual thoracic kyphosis is preserved. Multilevel degenerative changes characterized by disc space loss with endplate changes of the vertebral bodies with small marginal osteophytes. Right apical pulmonary scarring. Right basilar subpleural pulmonary nodule measuring 6 mm (series 1100, image 21). LUMBAR SPINE: There is no significant vertebral body height loss. No acute traumatic fracture identified. Grade I anterolistheses of L3 on L4 and L4 on L5. Usual lumbar lordosis is preserved. Multilevel degenerative changes characterized by disc space loss, broad based disc bulge/herniations with endplate changes of the vertebral bodies with small marginal osteophytes as well as bilateral facet hypertrophy and thickening of the ligamentum flavum resulting in crowding of the subarticular recesses and narrowing of neural foramina worst at L4-S1. Nonspecific sclerotic foci and L2 vertebral body and additional scattered subcentimeter described foci in the lumbosacral spine Multiple ill-defined hepatic hypoattenuations. Incompletely characterized 4.5 cm soft tissue density structure in the mid pelvis IMPRESSION: No acute traumatic fracture of the thoracic or lumbar spine. Multilevel degenerative changes as above Nonspecific sclerotic foci and L2 vertebral body and additional scattered subcentimeter described foci in the lumbosacral spine Multiple ill-defined hepatic hypoattenuations which may represent hepatic metastases in the proper clinical context. Recommend clinical correlation with medical history. Incompletely characterized 4.5 cm soft tissue density structure in the mid pelvis Right basilar subpleural pulmonary nodule measuring 6 mm Electronically signed by Kameron Faye 10-20-2024 5:07 PM
[2024-10-20] MEDS: SODIUM CHLORIDE 0.9% 500 ML IV ONE (17:37)
[2024-10-20] MEDS ORDERED: BISMUTH SUBSALICYLATE 262 MG CHEW PO PRN (19:16)
--- NOTE | 2024-10-20 19:37 | History & Physical Report ---
Date of Service October 20, 2024 Assessment & Plan (1) Falling: Plan Generalized weakness Recurrent falls Patient comes in with recurrent falls and reports generalized weakness. Patient is on blood thinner. Admitting C-spine CT, lumbar spine and thorax his spine CT and CT head reviewed with no acute fractures Or bleed. Get orthostatic vitals. Fall precaution, PT/OT. Rule out infection, WBC WNL, will get urine analysis and blood cx. Concern for sinusitis, will start Unasyn. adjust for renal fxn. Severe Hyponatremia: Admitting sodium of 119, baseline sodium around 140. Will get urine electrolytes, UA urine and serum osmolality. Patient received 1.5 L NSS in the ED. Case discussed with the nephrology, will do BMP every 4 hours, signed out to medical laboratory scientist to follow-up on this. Also per discussion, no more IV fluid, if patient correcting more than 1 point every 2 hours then consider D5W to reverse the rapid change in sodium level. Nephrology consult palced. 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 Severe hypokalemia: Admitting potassium of 2.9, received 10 mEq in the ED. Additional 80 mEq ordered. Follow-up BMP every 4 hours and replete electrolytes as appropriate, signed out to medical laboratory scientist. Acute kidney injury: Baseline creatinine of 0.27 to-0.4, admitting creatinine of 1.31. Received 1.5 L NSS in the ED, will avoid further IV fluid due to concern of sodium level correcting rapidly, labs in a.m., hold Entresto, avoid other nephrotoxic agents. Chronic elevation of troponin: Troponin minimally elevated, less than prior levels. Patient denies chest pain, continue monitoring over telemetry. History of multiple cancer Abnormal thoracic and lumbar spine CT: Noted during this admission. Patient updated on findings concerning for bone lesions, hepatic lesions, pulmonary lesion. Patient reports that she has not followed up with oncology in the last few years. Patient advised to follow-up with oncology for further workup on this. DVT Px: pt on eliquis Full code. History of Present Illness Chief Complaint: Weakness, fall Primary Care Provider: Marilyn West DO 72-year-old lady with PMH of malignant neoplasm of ovary, prediabetes, HLD, pulmonary hypertension, chronic systolic heart failure, CAD, HTN, nonrheumatic mitral valve regurgitation, vitamin D deficiency, GERD, malignant neoplasm of large intestine and rectum, senile osteoporosis, malignant neoplasm of peritoneum, malignant neoplasm of intrapelvic lymph nodes, hyponatremia presents to the ED with complaint of recurrent fall and weakness. Patient reports she h as been falling very frequently lately, but was able to get up and get around and hence she did not present to the hospital. Today she fell on her back while trying to go to the kitchen from her bedroom, could not get up and hence called EMS. Patient reports she has had very poor appetite and poor fluid intake in the last several days, reports that in general she does have poor appetite at baseline as well. Patient reports she has been feeling dizzy constantly throughout but denies any seizure-like activity or headache or blurry vision. Patient denies fever/sore throat/cough/chest pain/shortness of breath/belly pain/nausea/vomiting. Patient just reports that she does not have any appetite to eat or drink. Patient denies any pain or burning while passing urine, reports moving bowels okay at her baseline. 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 Denies recreational drug use. Full code as per my discussion with the patient. Medications reviewed with the patient at bedside. Plan of care discussed with the patient in detail, she voiced understanding. Allergies Allergy/AdvReac Type Severity Reaction Status Date / Time diphenhydramine Allergy Severe Difficulty Verified 10/20/24 17:47 [From Benadryl] Breathing doxorubicin Allergy Severe CHEMO Verified 10/20/24 17:47 DRUG--UNKNOWN house dust Allergy Intermediate CONGESTION-ODORS, Verified 10/20/24 17:47 FUMES, DUST Home Medications Medication Instructions Recorded Confirmed Type atorvastatin 10 mg tablet (Lipitor) 10 mg PO HS 09/22/19 10/20/24 History cyanocobalamin (vitamin B-12) 500 1,000 mcg PO DAILY 07/23/21 10/20/24 History mcg tablet (Vitamin B-12) apixaban 5 mg tablet (Eliquis) 5 mg PO BID 12/05/21 10/20/24 History amlodipine 5 mg tablet (Norvasc) 5 mg PO QAM 30 days #30 tabs 03/16/23 10/20/24 Rx potassium chloride 20 mEq 20 meq PO BID 90 days #180 tabs 11/16/23 10/20/24 Rx tablet,extended release carvedilol 12.5 mg tablet 37.5 mg (3 x 12.5 mg) PO BID 30 03/23/24 10/20/24 Rx days #540 tabs bismuth subsalicylate 262 mg 2 tab PO DIRECTED PRN UPSET 10/20/24 10/20/24 History chewable tablet STOMACH cholecalciferol (vitamin D3) 25 25 mcg PO DAILY 10/20/24 10/20/24 History mcg (1,000 unit) capsule (Vitamin D3) denosumab 60 mg/mL subcutaneous 60 mg subcut DIRECTED 10/20/24 10/20/24 History syringe (Prolia) docusate sodium 100 mg capsule 100 mg PO BID 10/20/24 10/20/24 History magnesium chloride 64 mg 64 mg PO BID 10/20/24 10/20/24 History (magnesium chloride) tablet,delayed release (Mag-Delay) magnesium oxide 400 mg PO DAILY 10/20/24 10/20/24 History melatonin 3 mg-chamomile flower 1 tab PO HS 10/20/24 10/20/24 History 500 mcg tablet pantoprazole 40 mg tablet,delayed 40 mg PO BID 10/20/24 10/20/24 History release sacubitril 97 mg-valsartan 103 mg 1 tab PO BID 10/20/24 10/20/24 History tablet (Entresto) Past Med/Surg History Problem List (Updated 10/20/24 @ 17:51 by Dmitriy Sierra MD) Hypotension (Acute) Falling (Acute) Hypokalemia (Acute) Dehydration (Acute) Acute hyponatremia (Acute) Anemia (Acute) Weakness (Acute) Acute UTI (urinary tract infection) (Acute) Elevated troponin (Acute) Respiratory syncytial virus (RSV) (Acute) Weakness UTI (urinary tract infection) Acute metabolic encephalopathy Confusion (Acute) Hypokalemia (Acute) Hypomagnesemia (Acute) Dehydration (Acute) Fatigue (Acute) Anticoagulant long-term use Congestive heart failure Chronic pulmonary embolism Electrolyte and fluid disorder Acute hypoxemic respiratory failure Acute CHF (congestive heart failure) (Acute) Elevated troponin (Acute) COVID-19 (Acute) Constipation Allergic drug reaction (Acute) Anaphylaxis (Acute) Acute bronchospasm (Acute) Acute hyponatremia (Acute) Mitral regurgitation Nonischemic cardiomyopathy Encounter for pre-operative examination Pelvic mass DVT prophylaxis Hyponatremia Anemia Ovarian cancer Hypertension Medical History Chronic pulmonary embolism Electrolyte and fluid disorder Constipation Arthritis Ovarian cancer Limb alert care status RUE History of uterine fibroid Degenerative disc disease Spinal stenosis Chronic back pain Osteoarthritis Osteoporosis History of kidney stones History of gastric ulcer History of breast cancer Rt - 17 years ago - S/p Rt mastectomy, chemo + radiation, Lt - 2018 - s/p lumpectomy x 2, raidation 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 followed with physical therapy. History of depression Valvular heart disease follows with [facility] [place] Cardiology Dr Shabazz; moderate MR, mild global hypokinesis LV, RVSP 40-50mmHg Hypertension Malignant neoplasm of central portion of left breast in female, estrogen receptor negative 2016 Surgical History Port-A-Cath in place (06/09/21) Insertion of Access Port with Fluoroscopy(Left) - Amador Archibald DO, FACS 06/09/2021 H/O: hysterectomy H/O knee surgery left knee reconstruction Status post correction of deviated nasal septum History of tooth extraction History of foot surgery BL History of lumpectomy of left breast x 2 2019 Hx of right mastectomy with lymph node removal 1991 History of breast biopsy Family History Father Esophageal cancer Social History Smoking Status: Former smoker Tobacco Type: Cigarettes Second Hand Exposure: No; Do You Dip or Chew Tobacco: No; Hx Alcohol Use: No Hx Substance Use: No Preferred Language: Thai Communication Ability: Effective Sample Tester Required: No Beliefs That Will Affect Care: None Current Living Situation: Alone and Other Current Living Situation Comment: Lives independently at [facility] Feels Safe at Home: Yes Assistive Devices: Cane Review of Systems Review of Systems: Negative otherwise mentioned in HPI. Physical Exam Physical Exam: GENERAL: Alert and oriented x3. Slow to respond, NAD, on RA. Appears chronically ill, sick, frail. HEENT: No pallor, no icterus. Pupils equal, round and reactive to light. Oral mucosa dry. NECK: No JVD, no neck masses. HEART: S1 and S2 heard. Regular rate and rhythm. No murmur, no gallop. RESPIRATORY SYSTEM: Normal AP diameter. No accessory muscle use. No wheezing, no crackles. ABDOMEN: Soft, bowel sounds present, nontender, no distention. CENTRAL NERVOUS SYSTEM: No facial droop. Speech is clear. Obeys simple commands. Moves extremities. EXTREMITIES: No edema, no erythema seen. Results & Data Results & Data Vital Signs (Past 12 Hours) Vital Signs Temp Pulse Pulse Resp BP BP Pulse Ox 10/20/24 18:27 76 10/20/24 18:00 78 16 141/76 H 93 10/20/24 17:00 78 20 151/87 H 95 10/20/24 16:00 74 16 147/94 H 96 10/20/24 15:21 70 17 128/58 L 93 10/20/24 15:02 128/58 L 10/20/24 14:33 10/20/24 14:26 70 10/20/24 14:21 69 20 94/43 L 100 10/20/24 14:16 36.8 C 80 20 97/55 L 97 O2 Del Method 10/20/24 18:27 10/20/24 18:00 Room Air 10/20/24 17:00 Room Air 10/20/24 16:00 Room Air 10/20/24 15:21 Room Air 10/20/24 15:02 10/20/24 14:33 Room Air 10/20/24 14:26 10/20/24 14:21 Room Air 10/20/24 14:16 Room Air Code Status & VTE Plan VTE Prophylaxis Plan VTE Prophylaxis will be ordered: Yes
[2024-10-20] MEDS: POTASSIUM CHLORIDE / WTR 10 MEQ/100 ML PLCT IV SCH (19:49)
[2024-10-20] MEDS: POTASSIUM CHLORIDE CRTAB 20 MEQ TABCR PO STA (19:49)
[2024-10-20] MEDS ORDERED: Patient's HEIGHT &/or WEIGHT Needed STA ×2 (21:10→22:07)
[2024-10-20] MEDS ORDERED: AMPICILLIN/SULBACTAM SOD 3,000 MG/100 ML BAG IV STA (21:10)
[2024-10-20 22:02] LABS: Appearance Urine Cloudy (Clear); Bacteria Urine Automated 4+ (None Seen); Glucose Urine UA Negative (Negative); WBC Urine Automated >50 /hpf (0-5)
[2024-10-20] MEDS: ATORVASTATIN 10 MG TAB PO SCH (22:21)
[2024-10-20 22:22] LABS: Anion Gap 11.0 (3-11); Blood Urea Nitrogen 48.0 mg/dl (6-23); Calcium 8.1 mg/dl (8.6-10.3); Carbon Dioxide 25.0 mmol/L (21-32); Chloride 87.0 mmol/L (98-107); Creatinine Clr Calc Pharmacy 42.8 ml/min; Potassium 2.8 mmol/L (3.5-5.1); Sodium 123.0 mmol/L (136-145)
[2024-10-20] MEDS: DOCUSATE SODIUM 100 MG CAP PO SCH (22:23)
[2024-10-20] MEDS: APIXABAN 5 MG TABLET PO SCH (22:27)
--- NOTE | 2024-10-20 22:27 | Communication Note ---
Date of Service: October 20, 2024 Sodium 123 from 119 in 5 hours. AP Hyponatremia D5 IVF to offset rapid correction
[2024-10-20] MEDS: DEXTROSE 5% 1,000 ML IV ONE (23:03)
[2024-10-20] MEDS: MELATONIN 3 MG TAB PO PRN (23:03)
[2024-10-20] MEDS: AMPICILLIN/SULBACTAM SOD 3,000 MG/100 ML BAG IV SCH (23:05)
[2024-10-20 23:22] LABS: Anion Gap 10.0 (3-11); Blood Urea Nitrogen 44.0 mg/dl (6-23); Calcium 8.2 mg/dl (8.6-10.3); Carbon Dioxide 26.0 mmol/L (21-32); Chloride 88.0 mmol/L (98-107); Creatinine Clr Calc Pharmacy 47.7 ml/min; Potassium 3.0 mmol/L (3.5-5.1); Sodium 124.0 mmol/L (136-145)
[2024-10-21] MEDS: ACETAMINOPHEN 325 MG TAB PO PRN (01:59)
[2024-10-21] MEDS: DICLOFENAC SOD 1% GEL 100 GM TUBE EXT PRN (03:37)
[2024-10-21 03:40] LABS: Hematocrit (blood only) 25.7 % (37.0-47.0); Hemoglobin 9.4 g/dl (12.0-16.0); Mean Corpuscular Hemoglobin 32.5 pg (25.0-34.0); Mean Corpuscular Volume 88.9 fL (80.0-100.0); Platelet Count 241 K/uL (130-400); RDW Standard Deviation 41.8 fL (36.4-46.3); Red Blood Count 2.89 M/uL (4.20-5.40); White Blood Count 8.00 K/ul (4.8-10.8)
[2024-10-21 04:18] LABS: Anion Gap 10.0 (3-11); Blood Urea Nitrogen 37.0 mg/dl (6-23); Calcium 7.9 mg/dl (8.6-10.3); Carbon Dioxide 24.0 mmol/L (21-32); Chloride 88.0 mmol/L (98-107); Creatinine Clr Calc Pharmacy 70.5 ml/min; Magnesium 1.6 mg/dl (1.7-2.4); Potassium 3.2 mmol/L (3.5-5.1); Sodium 122.0 mmol/L (136-145)
[2024-10-21 07:29] LABS: Anion Gap 10.0 (3-11); Blood Urea Nitrogen 32.0 mg/dl (6-23); Calcium 8.1 mg/dl (8.6-10.3); Carbon Dioxide 25.0 mmol/L (21-32); Chloride 88.0 mmol/L (98-107); Creatinine Clr Calc Pharmacy 78.7 ml/min; Potassium 3.1 mmol/L (3.5-5.1); Sodium 123.0 mmol/L (136-145)
[2024-10-21] MEDS ORDERED: POTASSIUM PHOS 3 MMOL/1 ML INFUSION IV STA (09:04)
[2024-10-21] MEDS: MAGNESIUM SULFATE / D5W 1 GM/100 ML BAG IV SCH (09:13)
[2024-10-21] MEDS: CYANOCOBALAMIN (B-12) 500 MCG TABLET PO SCH (09:13)
[2024-10-21] MEDS: POTASSIUM CHLORIDE / WTR 10 MEQ/100 ML PLCT IV SCH (09:13)
--- NOTE | 2024-10-21 11:55 | Electrocardiogram Report ---
Test Reason : Blood Pressure : */* mmHG Vent. Rate : 72 BPM Atrial Rate : 72 BPM P-R Int : 152 ms QRS Dur : 124 ms QT Int : 452 ms P-R-T Axes : 82 -46 100 degrees QTcB Int : 494 ms Sinus rhythm with Premature supraventricular complexes and with occasional Premature ventricular comp lexes Left axis deviation Minimal voltage criteria for LVH, may be normal variant ( Gavin product ) Anteroseptal infarct (cited on or before 13-Mar-2023) Abnormal ECG When compared with ECG of 02-Aug-2024 15:08, Premature ventricular complexes are now Present Premature supraventricular complexes are now Present Confirmed by Shana Rosenthal (Yee) on 10/21/2024 11:55:18 AM Referred By: Confirmed By: Shana Rosenthal
[2024-10-21 13:17] LABS: Anion Gap 9.0 (3-11); Blood Urea Nitrogen 25.0 mg/dl (6-23); Calcium 8.1 mg/dl (8.6-10.3); Carbon Dioxide 25.0 mmol/L (21-32); Chloride 87.0 mmol/L (98-107); Creatinine Clr Calc Pharmacy 76.9 ml/min; Glucose 132.0 mg/dl (70-99(Fasting)); Potassium 3.4 mmol/L (3.5-5.1); Sodium 121.0 mmol/L (136-145)
--- NOTE | 2024-10-21 13:19 | Nephrology Consultation ---
Date of Consultation October 21, 2024 Assessment & Plan (1) Acute hyponatremia: Severe Hyponatremia: Admitting sodium of 119, baseline sodium around 140. urine studies point towards a volume contract state, she got @ 1.5 lit of NSS She has a rapid correction overnight with Sodium increasing [id number] to 123 in 5 hr and she was started on 60 mls/hr of D5W.. - Sodium correction now is on target 124 until 2 pm. No iv Fluids/ lasix . 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 (2) Hypokalemia: Severe hypokalemia. Follow-up BMP every 4 hours and replete electrolytes as appropriate. (3) Acute kidney injury (nontraumatic): Acute kidney injury: Baseline creatinine of 0.27 to-0.4, admitting creatinine of 1.31. Received 1.5 L NSS in the ED, Cr now back to baseline., -Continue to hold Entresto. -Can be restarted tmrw. History of Present Illness Reason for Consultation: Hyponatremia, JUAN Attending Physician: Marbella Steel MD History of Present Illness 72-year-old lady who presented to the ER w/ recurrent falls and Dizziness. She also c/o of poor appetite and poor fluid intake in the last several days PMH of malignant neoplasm of ovary, prediabetes, HLD, pulmonary hypertension, chronic systolic heart failure, CAD, HTN, nonrheumatic mitral valve regurgitation, vitamin D deficiency, GERD, malignant neoplasm of large intestine and rectum, senile osteoporosis, malignant neoplasm of peritoneum, malignant neoplasm of intrapelvic lymph nodes, Chronic hyponatremia Patient denies fever/sore throat/cough/chest pain/shortness of breath/belly pain/nausea/vomiting. 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 Denies recreational drug use. ER labs were significant for Sodium of 118, K -2.8 , BUN/cR- 58/1.6.Uosm - 352, U na- 22. Allergies Allergy/AdvReac Type Severity Reaction Status Date / Time diphenhydramine Allergy Severe Difficulty Verified 10/20/24 17:47 [From Benadryl] Breathing doxorubicin Allergy Severe CHEMO Verified 10/20/24 17:47 DRUG--UNKNOWN house dust Allergy Intermediate CONGESTION-ODORS, Verified 10/20/24 17:47 FUMES, DUST Home Medications Medication Instructions Recorded Confirmed Type atorvastatin 10 mg tablet (Lipitor) 10 mg PO HS 09/22/19 10/20/24 History cyanocobalamin (vitamin B-12) 500 1,000 mcg PO DAILY 07/23/21 10/20/24 History mcg tablet (Vitamin B-12) apixaban 5 mg tablet (Eliquis) 5 mg PO BID 12/05/21 10/20/24 History amlodipine 5 mg tablet (Norvasc) 5 mg PO QAM 30 days #30 tabs 03/16/23 10/20/24 Rx potassium chloride 20 mEq 20 meq PO BID 90 days #180 tabs 11/16/23 10/20/24 Rx tablet,extended release carvedilol 12.5 mg tablet 37.5 mg (3 x 12.5 mg) PO BID 30 03/23/24 10/20/24 Rx days #540 tabs bismuth subsalicylate 262 mg 2 tab PO DIRECTED PRN UPSET 10/20/24 10/20/24 History chewable tablet STOMACH cholecalciferol (vitamin D3) 25 25 mcg PO DAILY 10/20/24 10/20/24 History mcg (1,000 unit) capsule (Vitamin D3) denosumab 60 mg/mL subcutaneous 60 mg subcut DIRECTED 10/20/24 10/20/24 History syringe (Prolia) docusate sodium 100 mg capsule 100 mg PO BID 10/20/24 10/20/24 History magnesium chloride 64 mg 64 mg PO BID 10/20/24 10/20/24 History (magnesium chloride) tablet,delayed release (Mag-Delay) magnesium oxide 400 mg PO DAILY 10/20/24 10/20/24 History melatonin 3 mg-chamomile flower 1 tab PO HS 10/20/24 10/20/24 History 500 mcg tablet pantoprazole 40 mg tablet,delayed 40 mg PO BID 10/20/24 10/20/24 History release sacubitril 97 mg-valsartan 103 mg 1 tab PO BID 10/20/24 10/20/24 History tablet (Entresto) Patient History Medical History Arthritis Limb alert care status RUE History of uterine fibroid Degenerative disc disease Spinal stenosis Chronic back pain Osteoarthritis Osteoporosis History of kidney stones History of gastric ulcer History of breast cancer Rt - 17 years ago - S/p Rt mastectomy, chemo + radiation, Lt - 2018 - s/p lumpectomy x 2, raidation 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 followed with physical therapy. History of depression Valvular heart disease [place] [facility] [place] Shabazz; moderate MR, mild global hypokinesis LV, RVSP 40-50mmHg Malignant neoplasm of central portion of left breast in female, estrogen receptor negative 2016 Surgical History Port-A-Cath in place (06/09/21) Insertion of Access Port with Fluoroscopy(Left) - Amador Archibald DO, FACS 06/09/2021 H/O: hysterectomy H/O knee surgery left knee reconstruction Status post correction of deviated nasal septum History of tooth extraction History of foot surgery BL History of lumpectomy of left breast x 2 2019 Hx of right mastectomy with lymph node removal 1991 History of breast biopsy Family History Father Esophageal cancer Social History Smoking Status: Former smoker Tobacco Type: Cigarettes Second Hand Exposure: No; Do You Dip or Chew Tobacco: No; Hx Alcohol Use: Yes Alcohol type: beer Hx Substance Use: No Preferred Language: Vietnamese Communication Ability: Effective 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 Beliefs That Will Affect Care: None Current Living Situation: Alone Current Living Situation Comment: Lives independently at [facility] Feels Safe at Home: Yes Safety Concerns: Feels Safe At This Time Assistive Devices: Cane and Walker Review of Systems 2 Review of Systems: All systems reviewed & are unremarkable except as noted in HPI & below Results & Data Vital Signs (Past 12 Hours) Vital Signs Temp Pulse Resp BP Pulse Ox O2 Del Method 10/21/24 11:20 36.3 C L 79 18 130/75 96 Room Air 10/21/24 08:48 36.4 C L 76 18 149/76 H 95 Room Air 10/21/24 07:38 Room Air 10/21/24 03:36 36.3 C L 72 19 131/74 98 Room Air Laboratory Results 10/21/24 03:24 10/21/24 03:24
[2024-10-21] MEDS: POTASSIUM PHOSPHATE 21 MMOL in SODIUM CHLORIDE 0.9% 500 ML IV ONE (14:11)
[2024-10-21 14:51] LABS: Anion Gap 6.0 (3-11); Blood Urea Nitrogen 22.0 mg/dl (6-23); Calcium 8.2 mg/dl (8.6-10.3); Carbon Dioxide 26.0 mmol/L (21-32); Chloride 88.0 mmol/L (98-107); Creatinine Clr Calc Pharmacy 80.6 ml/min; Glucose 137.0 mg/dl (70-99(Fasting)); Potassium 3.7 mmol/L (3.5-5.1); Sodium 120.0 mmol/L (136-145)
--- NOTE | 2024-10-21 15:05 | Hospitalist Progress Note ---
Date of Service October 21, 2024 Assessment & Plan (1) Falling: Plan Generalized weakness Recurrent falls Patient comes in with recurrent falls and reports generalized weakness. Patient is on blood thinner. Admitting C-spine CT, lumbar spine and thorax his spine CT and CT head reviewed with no acute fractures Or bleed. Neg orthostatic vitals. Fall precaution, PT/OT. Rule out infection, WBC WNL, UA s/o UTI, f/u admitting Urine and blood cx. Concern for sinusitis, c/w Unasyn 10/20. Severe Hyponatremia: Admitting sodium of 119, baseline sodium around 140. 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 Overnight Na corrected fast, hence put on D5W at 60 /hr. Na repeat during the day, last one 120 at 2pm. d/w nephro, plan for 500 ml nss stat. c/t monitor BMP q4h. Nephro on board, appreciate recs Severe hypokalemia: Admitting potassium of 2.9, KCl repleted. latest level at 3.7. Continue to monitor. Acute kidney injury: Baseline creatinine of 0.27 to-0.4, admitting creatinine of 1.31. s/p IVF, resolved. Chronic elevation of troponin: Troponin minimally elevated, less than prior levels. Patient denies chest pain, continue monitoring over telemetry. History of multiple cancer Abnormal thoracic and lumbar spine CT: Noted during this admission. Patient updated on findings concerning for bone lesions, hepatic lesions, pulmonary lesion. Patient reports that she has not followed up with oncology in the last few years. Patient advised to follow-up with oncology for further workup on this. DVT Px: pt on eliquis Full code. pt/ot, cm to assist w/ dc plan Admission and Anticipated Discharge Date Admission Date: October 20, 2024 Subjective Patient was seen and examined at bedside. Patient was lying in bed, on room air, NAD, resting comfortably. Patient reports no new acute event overnight, denies headache or nausea or vomiting, reports eating better. Patient reports chronic dizziness. Patient denies chest pain or shortness of breath. Physical Exam Physical Exam: GENERAL: Alert and oriented x3. NAD, on RA. Appears chronically ill, sick, frail. HEENT: No pallor, no icterus. Pupils equal, round and reactive to light. Oral mucosa dry. NECK: No JVD, no neck masses. HEART: S1 and S2 heard. Regular rate and rhythm. No murmur, no gallop. RESPIRATORY SYSTEM: Normal AP diameter. No accessory muscle use. No wheezing, no crackles. ABDOMEN: Soft, bowel sounds present, nontender, no distention. CENTRAL NERVOUS SYSTEM: No facial droop. Speech is clear. Obeys simple commands. Moves extremities. EXTREMITIES: No edema, no erythema seen. Results & Data Results & Data Vital Signs (Past 12 Hours) Vital Signs Temp Pulse Resp BP Pulse Ox O2 Del Method 10/21/24 11:20 36.3 C L 79 18 130/75 96 Room Air 10/21/24 08:48 36.4 C L 76 18 149/76 H 95 Room Air 10/21/24 07:38 Room Air 10/21/24 03:36 36.3 C L 72 19 131/74 98 Room Air
[2024-10-21] MEDS: SODIUM CHLORIDE 0.9% 500 ML IV SCH (15:30)
[2024-10-21] MEDS: FUROSEMIDE INJ 20 MG/2 ML VIAL IV STA (17:58)
--- NOTE | 2024-10-21 18:09 | XRay Report ---
EXAM: Portable AP chest radiograph TECHNIQUE: AP portable radiograph of the chest was obtained. INDICATION: Shortness of breath Comparison: Hypoxia. FINDINGS: LINES and TUBES: Left-sided Port-A-Cath with tip projecting over the distal SVC/superior cavoatrial junction CARDIOVASCULAR: Cardiac silhouette is enlarged in size. LUNGS/PLEURA: Moderate interstitial pulmonary edema. There are streaky left perihilar densities that may represent alveolar component of pulmonary edema, superimposed atelectasis/scarring versus pneumonia. Small pleural fluid may be present. No discernible pneumothorax. OSSEOUS/OTHER: No displaced acute osseous process identified. Right chest wall surgical clips. IMPRESSION: Enlarged cardiac silhouette that may be due to cardiomegaly and/or pericardial fluid. Moderate congestive changes of the cardiovascular system as above. Electronically signed by Kameron Faye 10-21-2024 6:09 PM
[2024-10-21] MEDS: FUROSEMIDE INJ 20 MG/2 ML VIAL IV ONE ×2 (18:19→18:37)
--- NOTE | 2024-10-21 18:33 | Communication Note ---
Date of Service: October 21, 2024 Reviewed chest x-ray as requested by attending physician. Attending physician discussed with residential builder on-call who recommends recommends to give additional IV Lasix 20 mg (total 40 mg )and recheck labs. Patient will likely need echo for further evaluation.
[2024-10-21 20:05] LABS: Anion Gap 9.0 (3-11); Calcium 8.0 mg/dl (8.6-10.3); Carbon Dioxide 25.0 mmol/L (21-32); Chloride 89.0 mmol/L (98-107); Potassium 4.1 mmol/L (3.5-5.1); Sodium 123.0 mmol/L (136-145)
[2024-10-21 20:11] LABS: Blood Urea Nitrogen 18.0 mg/dl (6-23); Creatinine Clr Calc Pharmacy 78.7 ml/min
[2024-10-21] MEDS: POTASSIUM CHLORIDE CRTAB 20 MEQ TABCR PO SCH (21:32)
[2024-10-21] MEDS: VALSARTAN/SACUBITRIL 103/97MG TAB PO SCH (21:35)
[2024-10-21 22:50] LABS: Hematocrit (blood only) 26.3 % (37.0-47.0); Hemoglobin 9.7 g/dl (12.0-16.0); Mean Corpuscular Hemoglobin 33.4 pg (25.0-34.0); Mean Corpuscular Volume 90.7 fL (80.0-100.0); Platelet Count 247 K/uL (130-400); RDW Standard Deviation 42.2 fL (36.4-46.3); Red Blood Count 2.90 M/uL (4.20-5.40); White Blood Count 7.64 K/ul (4.8-10.8)
[2024-10-21 23:08] LABS: Anion Gap 9.0 (3-11); Blood Urea Nitrogen 18.0 mg/dl (6-23); Calcium 7.9 mg/dl (8.6-10.3); Carbon Dioxide 27.0 mmol/L (21-32); Chloride 89.0 mmol/L (98-107); Creatinine Clr Calc Pharmacy 82.5 ml/min; Potassium 3.6 mmol/L (3.5-5.1); Sodium 125.0 mmol/L (136-145)
[2024-10-22 03:43] LABS: Hematocrit (blood only) 29.4 % (37.0-47.0); Hemoglobin 10.8 g/dl (12.0-16.0); Mean Corpuscular Hemoglobin 33.0 pg (25.0-34.0); Mean Corpuscular Volume 89.9 fL (80.0-100.0); Platelet Count 198 K/uL (130-400); RDW Standard Deviation 41.7 fL (36.4-46.3); Red Blood Count 3.27 M/uL (4.20-5.40); White Blood Count 5.05 K/ul (4.8-10.8)
[2024-10-22 03:59] LABS: Anion Gap 7.0 (3-11); Blood Urea Nitrogen 18.0 mg/dl (6-23); Calcium 7.8 mg/dl (8.6-10.3); Carbon Dioxide 27.0 mmol/L (21-32); Chloride 92.0 mmol/L (98-107); Creatinine Clr Calc Pharmacy 82.5 ml/min; Magnesium 1.5 mg/dl (1.7-2.4); Potassium 3.6 mmol/L (3.5-5.1); Sodium 126.0 mmol/L (136-145)
[2024-10-22] MEDS ORDERED: POTASSIUM PHOS 3 MMOL/1 ML INFUSION IV STA (07:17)
[2024-10-22] MEDS: MAGNESIUM SULFATE / D5W 1 GM/100 ML BAG IV SCH (07:30)
[2024-10-22] MEDS: POTASSIUM PHOSPHATE 21 MMOL in SODIUM CHLORIDE 0.9% 500 ML IV ONE (11:17)
--- NOTE | 2024-10-22 12:38 | Nephrology Progress Note ---
Date of Service October 22, 2024 Assessment & Plan (1) Acute hyponatremia: Plan: Severe Hyponatremia: Admitting sodium of 119, urine studies point towards a volume contract state, she got @ 1.5 lit of NSS She has a rapid correction overnight with Sodium increasing [id number] to 123 in 5 hr and she was started on 60 mls/hr of D5W.. -sodium dropped to 120 mid day yesterday and was given 500 mL of normal saline, she went into pulmonary edema since then she has got 40 mg of IV Lasix, latest BMP is awaited. - replace magnesium and calcium orally. No iv Fluids. 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 repeat U osm w/ fraction excreationof uric acid ( she is on diuretic now) (2) Hypokalemia: Plan: Severe hypokalemia. Follow-up BMP every 4 hours and replete electrolytes as appropriate. (3) Acute kidney injury (nontraumatic): Plan: Acute kidney injury: Baseline creatinine of 0.27 to-0.4, admitting creatinine of 1.31. Received 1.5 L NSS in the ED, Cr now back to baseline., -Continue to hold Entresto. -Can be restarted Admission and Anticipated Discharge Date Admission Date: October 20, 2024 Subjective Patient was seen and examined at bedside. Patient was lying in bed, on room air, NAD, resting comfortably.. Patient denies chest pain or shortness of breath. Review of Systems 2 Review of Systems: All systems reviewed & are unremarkable except as noted in HPI & below Results & Data Vital Signs (Past 12 Hours) Vital Signs Temp Pulse Pulse Resp BP Pulse Ox O2 Del Method 10/22/24 11:28 36.7 C 69 18 112/69 90 Room Air 10/22/24 07:52 Room Air 10/22/24 07:45 36.4 C L 73 18 149/71 H 91 Room Air 10/22/24 04:46 76 10/22/24 03:13 36.4 C L 73 16 149/79 H 99 Room Air Laboratory Results 10/22/24 03:10 10/22/24 03:10
[2024-10-22] MEDS: FUROSEMIDE 40 MG TAB PO ONE (15:28)
--- NOTE | 2024-10-22 15:37 | Hospitalist Progress Note ---
Date of Service October 22, 2024 Assessment & Plan (1) Falling: Plan Generalized weakness Recurrent falls Patient comes in with recurrent falls and reports generalized weakness. Patient is on blood thinner. Admitting C-spine CT, lumbar spine and thorax his spine CT and CT head reviewed with no acute fractures Or bleed. Neg orthostatic vitals. Fall precaution, PT/OT. Rule out infection, WBC WNL, UA s/o UTI, f/u admitting Urine and blood cx. urine growing Klebsiella pneumonia. Concern for sinusitis And UTI, c/w Unasyn 10/20. Pulmonary edema: iso ho HF, after 500 mL NSS bolus on 10/21. Relieved with iv Lasix. Continue with po Lasix. ECHO 10/22 stable to prior echo. Severe Hyponatremia: Admitting sodium of 119, baseline sodium around 140. 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 Pt eating better, Na gradually trending up. Repeat BMP 3 pm. lab in AM. Pt on po lasix and po tums after d/w nephro. c/t monitor BMP bid or prn. Nephro on board, appreciate recs Severe hypokalemia: Admitting potassium of 2.9, KCl repleted. Continue with home supplementation. Resolved. Acute kidney injury: Baseline creatinine of 0.27 to-0.4, admitting creatinine of 1.31. s/p IVF, resolved. Chronic elevation of troponin: Troponin minimally elevated, less than prior levels. Patient denies chest pain, continue monitoring over telemetry. History of multiple cancer Abnormal thoracic and lumbar spine CT: Noted during this admission. Patient updated on findings concerning for bone lesions, hepatic lesions, pulmonary lesion. Patient reports that she has not followed up with oncology in the last few years. Patient advised to follow-up with oncology for further workup on this. DVT Px: pt on eliquis Full code. pt/ot, cm to assist w/ dc plan Admission and Anticipated Discharge Date Admission Date: October 20, 2024 Subjective Patient was seen and examined at bedside. Patient was lying in bed, on room air, NAD, resting comfortably. Patient denies headache or nausea or vomiting, reports eating better. Patient reports chronic dizziness. Patient denies chest pain or shortness of breath. Patient had acute shortness of breath last evening relieved with Lasix. Patient denies any shortness of breath today. Physical Exam Physical Exam: GENERAL: Alert and oriented x3. NAD, on RA. Appears chronically ill, sick, frail. HEENT: No pallor, no icterus. Pupils equal, round and reactive to light. Oral mucosa Moist. NECK: No JVD, no neck masses. HEART: S1 and S2 heard. Regular rate and rhythm. No murmur, no gallop. RESPIRATORY SYSTEM: Normal AP diameter. No accessory muscle use. No wheezing, no crackles. ABDOMEN: Soft, bowel sounds present, nontender, no distention. CENTRAL NERVOUS SYSTEM: No facial droop. Speech is clear. Obeys simple commands. Moves extremities. EXTREMITIES: No edema, no erythema seen. Results & Data Results & Data Vital Signs (Past 12 Hours) Vital Signs Temp Pulse Pulse Resp BP Pulse Ox O2 Del Method 10/22/24 11:28 36.7 C 69 18 112/69 90 Room Air 10/22/24 07:52 Room Air 10/22/24 07:45 36.4 C L 73 18 149/71 H 91 Room Air 10/22/24 04:46 76
[2024-10-22 15:54] LABS: Anion Gap 5.0 (3-11); Blood Urea Nitrogen 16.0 mg/dl (6-23); Calcium 7.9 mg/dl (8.6-10.3); Carbon Dioxide 28.0 mmol/L (21-32); Chloride 95.0 mmol/L (98-107); Creatinine Clr Calc Pharmacy 75.2 ml/min; Glucose 102.0 mg/dl (70-99(Fasting)); Magnesium 2.3 mg/dl (1.7-2.4); Potassium 4.4 mmol/L (3.5-5.1); Sodium 128.0 mmol/L (136-145)
[2024-10-22] MEDS: CALCIUM CARBONATE 500 MG CHEWABLE TAB PO SCH (20:48)
[2024-10-23 06:27] LABS: Hematocrit (blood only) 24.3 % (37.0-47.0); Hemoglobin 8.6 g/dl (12.0-16.0); Mean Corpuscular Hemoglobin 33.0 pg (25.0-34.0); Mean Corpuscular Volume 93.1 fL (80.0-100.0); Platelet Count 257 K/uL (130-400); RDW Standard Deviation 44.6 fL (36.4-46.3); Red Blood Count 2.61 M/uL (4.20-5.40); White Blood Count 6.07 K/ul (4.8-10.8)
[2024-10-23 06:54] LABS: Anion Gap 9.0 (3-11); Blood Urea Nitrogen 17.0 mg/dl (6-23); Calcium 7.9 mg/dl (8.6-10.3); Carbon Dioxide 29.0 mmol/L (21-32); Chloride 94.0 mmol/L (98-107); Creatinine Clr Calc Pharmacy 60.4 ml/min; Glucose 94.0 mg/dl (70-99(Fasting)); Magnesium 1.6 mg/dl (1.7-2.4); Potassium 3.7 mmol/L (3.5-5.1); Sodium 132.0 mmol/L (136-145)
[2024-10-23] MEDS: FUROSEMIDE 40 MG TAB PO SCH (08:27)
[2024-10-23] MEDS ORDERED: POTASSIUM PHOS 3 MMOL/1 ML INFUSION IV STA (08:38)
[2024-10-23] MEDS: MAGNESIUM SULFATE / D5W 1 GM/100 ML BAG IV SCH (09:07)
[2024-10-23] MEDS: POTASSIUM PHOSPHATE 21 MMOL in SODIUM CHLORIDE 0.9% 500 ML IV ONE (09:10)
--- NOTE | 2024-10-23 16:19 | Nephrology Progress Note ---
Date of Service October 23, 2024 Assessment & Plan (1) Acute hyponatremia: Plan: improving initially severe hypovolemic Hyponatremia w/ challenging volume status Admitting sodium of 119, urine studies point towards a volume contracted state, she got 1.5 lit of NS and had a rapid correction overnight with Sodium increasing [id number] to 123 in 5 hr; started on 60 mls/hr of D5W. -sodium dropped to 120 mid day 10/21 and was given 500 mL of normal saline, she went into pulmonary edema since then she has got 40 mg of IV Lasix - replace magnesium and calcium orally. No iv Fluids. 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 prior Ca hx noted >continue lasix 40 mg daily for now >maintain eukalemia (2) Hypokalemia: Plan: Severe hypokalemia. Follow-up BMP daily on K supplement 40 mEq bid >> will give extra dose today 40 mEq and follow (3) Acute kidney injury (nontraumatic): Plan: Acute kidney injury: Baseline creatinine of 0.27 to-0.4, admitting creatinine of 1.31. Cr now back to baseline -entresto resumed now; cont lasix Admission and Anticipated Discharge Date Admission Date: October 20, 2024 Subjective no acute interval events clinicall. still poor appetite but no N; dyspnea better today. less leg/foot pain past few days Review of Systems 2 Review of Systems: All systems reviewed & are unremarkable except as noted in Subjective Physical Exam 2 Constitutional: well developed and well nourished Eyes: EOM intact bilaterally ENMT: Mouth: + dry oral mucous membranes Respiratory: normal respiratory effort Auscultation: + diminished lung sounds Cardiovascular: RRR, no murmur, no edema Gastrointestinal (Abdomen): Inspection/Auscultation: normal bowel sounds P ercussion/Palpation: abdomen soft; abdomen nontender Musculoskeletal: Extremities: strength 5/5 throughout Skin: no rashes, warm and dry Neurologic: heath, fluent speech, no tremor Results & Data Vital Signs (Past 12 Hours) Vital Signs Temp Pulse Pulse Resp BP Pulse Ox O2 Del Method 10/23/24 15:41 36.5 C 75 18 137/72 90 Room Air 10/23/24 14:36 76 10/23/24 11:29 36.6 C 77 18 126/71 90 Room Air 10/23/24 08:00 Nasal Cannula 10/23/24 07:44 74 10/23/24 07:33 36.3 C L 75 18 162/79 H 90 Room Air O2 Flow Rate 10/23/24 15:41 10/23/24 14:36 10/23/24 11:29 10/23/24 08:00 2 10/23/24 07:44 10/23/24 07:33 Laboratory Results 10/23/24 05:53 10/23/24 05:53
--- NOTE | 2024-10-23 16:38 | Hospitalist Progress Note ---
Date of Service October 23, 2024 Assessment & Plan (1) Falling: Plan Generalized weakness Recurrent falls Patient comes in with recurrent falls and reports generalized weakness. Patient is on blood thinner. Admitting C-spine CT, lumbar spine and thorax his spine CT and CT head reviewed with no acute fractures Or bleed. Neg orthostatic vitals. Fall precaution, PT/OT. Rule out infection, WBC WNL, UA s/o UTI, f/u admitting Urine and blood cx. urine growing Klebsiella pneumonia. Concern for sinusitis And UTI, c/w Unasyn 10/20. Pulmonary edema: iso ho HF, after 500 mL NSS bolus on 10/21. Relieved with iv Lasix. Continue with po Lasix. ECHO 10/22 stable compared to prior echo. Severe Hyponatremia: Admitting sodium of 119, baseline sodium around 140. 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 Pt eating better, Na gradually trending up. Repeat BMP 3 pm. lab in AM. Pt on po lasix and po tums after d/w nephro. c/t monitor BMP bid or prn. Nephro on board, appreciate recs Severe hypokalemia: Admitting potassium of 2.9, KCl repleted. Continue with home supplementation. Resolved. Acute kidney injury: Baseline creatinine of 0.27 to-0.4, admitting creatinine of 1.31. s/p IVF, resolved. Chronic elevation of troponin: Troponin minimally elevated, less than prior levels. Patient denies chest pain, continue monitoring over telemetry. History of multiple cancer Abnormal thoracic and lumbar spine CT: Noted during this admission. Patient updated on findings concerning for bone lesions, hepatic lesions, pulmonary lesion. Patient reports that she has not followed up with oncology in the last few years. Patient advised to follow-up with oncology for further workup on this. DVT Px: pt on eliquis Full code. pt/ot, recs is rehab, cm to assist w/ dc plan Admission and Anticipated Discharge Date Admission Date: October 20, 2024 Subjective Patient was seen and examined at bedside. Patient was lying in bed, on room air, NAD, resting comfortably. Patient denies headache or nausea or vomiting, reports eating better. Patient reports chronic dizziness. Patient denies chest pain or shortness of breath. Physical Exam Physical Exam: GENERAL: Alert and oriented x3. NAD, on RA. Appears chronically ill, sick, frail. HEENT: No pallor, no icterus. Pupils equal, round and reactive to light. Oral mucosa Moist. NECK: No JVD, no neck masses. HEART: S1 and S2 heard. Regular rate and rhythm. No murmur, no gallop. RESPIRATORY SYSTEM: Normal AP diameter. No accessory muscle use. No wheezing, b/l crackles--improving. ABDOMEN: Soft, bowel sounds present, nontender, no distention. CENTRAL NERVOUS SYSTEM: No facial droop. Speech is clear. Obeys simple commands. Moves extremities. EXTREMITIES: No edema, no erythema seen. Results & Data Results & Data Vital Signs (Past 12 Hours) Vital Signs Temp Pulse Pulse Resp BP Pulse Ox O2 Del Method 10/23/24 15:41 36.5 C 75 18 137/72 90 Room Air 10/23/24 14:36 76 10/23/24 11:29 36.6 C 77 18 126/71 90 Room Air 10/23/24 08:00 Nasal Cannula 10/23/24 07:44 74 10/23/24 07:33 36.3 C L 75 18 162/79 H 90 Room Air O2 Flow Rate 10/23/24 15:41 10/23/24 14:36 10/23/24 11:29 10/23/24 08:00 2 10/23/24 07:44 10/23/24 07:33
[2024-10-23] MEDS: POTASSIUM CHLORIDE CRTAB 20 MEQ TABCR PO ONE (17:01)
[2024-10-24 08:01] LABS: Hematocrit (blood only) 24.3 % (37.0-47.0); Hemoglobin 8.5 g/dl (12.0-16.0); Mean Corpuscular Hemoglobin 33.1 pg (25.0-34.0); Mean Corpuscular Volume 94.6 fL (80.0-100.0); Platelet Count 270 K/uL (130-400); RDW Standard Deviation 45.5 fL (36.4-46.3); Red Blood Count 2.57 M/uL (4.20-5.40); White Blood Count 6.88 K/ul (4.8-10.8)
[2024-10-24 08:28] LABS: Anion Gap 7.0 (3-11); Blood Urea Nitrogen 14.0 mg/dl (6-23); Calcium 8.4 mg/dl (8.6-10.3); Carbon Dioxide 28.0 mmol/L (21-32); Chloride 98.0 mmol/L (98-107); Creatinine Clr Calc Pharmacy 73.6 ml/min; Glucose 113.0 mg/dl (70-99(Fasting)); Magnesium 1.4 mg/dl (1.7-2.4); Potassium 4.2 mmol/L (3.5-5.1); Sodium 133.0 mmol/L (136-145)
[2024-10-24] MEDS ORDERED: SODIUM PHOSPHATE 3 MMOL/1 ML INFUSION IV STA (09:17)
[2024-10-24] MEDS: MAGNESIUM SULFATE / D5W 1 GM/100 ML BAG IV SCH (09:41)
[2024-10-24] MEDS: SODIUM PHOSPHATE 15 MMOL in SODIUM CHLORIDE 0.9% 250 ML IV ONE (10:54)
--- NOTE | 2024-10-24 12:41 | XRay Report ---
XR chest 1V portable CLINICAL HISTORY: sob, f/u congestion, ? pl eff COMPARISON STUDY: 10/21/2024 FINDINGS: Stable chest port. Stable right axillary surgical clips. Stable moderate cardiomegaly with mild pulmonary vascular congestion. Stable mild diffuse pulmonary interstitial prominence. There is m ild blunting of the left costophrenic angle. Otherwise the lungs remain aerated. IMPRESSION: Mild CHF with possible trace left pleural effusion ACT 112: Negative or not required by law. Electronically signed by: Amador Hawthorne M.D. 10/24/2024 12:39 PM
--- NOTE | 2024-10-24 14:02 | Nephrology Progress Note ---
Date of Service October 24, 2024 Assessment & Plan (1) Acute hyponatremia: Plan: improving initially severe hypovolemic Hyponatremia w/ challenging volume status Admitting sodium of 119, urine studies point towards a volume contracted state, she got 1.5 lit of NS and had a rapid correction overnight with Sodium increasing [id number] to 123 in 5 hr; started on 60 mls/hr of D5W. -sodium dropped to 120 mid day 8 and was given 500 mL of normal saline, she went into pulmonary edema since then she has got 40 mg of IV Lasix - replace magnesium and calcium orally. No iv Fluids. 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 prior Ca hx noted >continue lasix 40 mg daily for now > may need to increase this >given HF will give extra IV lasix dose 10 mg x 1 today >will also give K 10 mEq po one time extra dose >maintain eukalemia (2) Hypokalemia: Plan: Severe hypokalemia. Follow-up BMP daily on K supplement 40 mEq bid >> will give extra dose today 10 mEq w/ lasix and follow (3) Acute kidney injury (nontraumatic): Plan: Acute kidney injury: Baseline creatinine of 0.27 to-0.4, admitting creatinine of 1.31. Cr now back to baseline -entresto resumed now; cont lasix Admission and Anticipated Discharge Date Admission Date: October 20, 2024 Subjective tells me she had a "breathing convulsion" today; RN reports he was there, she did not have distress or tachypnea or hypoxia; pt says medication helped; RN states it was abtx. no n/v; eating when I saw her no N Review of Systems 2 Review of Systems: All systems reviewed & are unremarkable except as noted in Subjective Physical Exam 2 Constitutional: well developed (sitting on side of bed) and well nourished Eyes: EOM intact bilaterally ENMT: Mouth: + dry oral mucous membranes Respiratory: normal respiratory effort Auscultation: + diminished lung sounds Cardiovascular: RRR, no murmur, no edema Gastrointestinal (Abdomen): Inspection/Auscultation: normal bowel sounds P ercussion/Palpation: abdomen soft; abdomen nontender Musculoskeletal: Extremities: strength 5/5 throughout Skin: no rashes, warm and dry Results & Data Vital Signs (Past 12 Hours) Vital Signs Temp Pulse Pulse Resp BP Pulse Ox O2 Del Method 10/24/24 11:34 36.3 C L 83 18 161/75 H 94 Nasal Cannula 10/24/24 08:00 Nasal Cannula 10/24/24 07:51 36.6 C 79 18 147/76 H 95 Room Air 10/24/24 03:45 79 10/24/24 02:27 36.7 C 82 18 150/83 H 95 Nasal Cannula O2 Flow Rate 10/24/24 11:34 10/24/24 08:00 3 10/24/24 07:51 10/24/24 03:45 10/24/24 02:27 2.0 Laboratory Results 10/24/24 07:32 10/24/24 07:32 Diagnostic Findings cxr mild HF, trace pl effusion
[2024-10-24] MEDS: FUROSEMIDE INJ 20 MG/2 ML VIAL IV ONE (15:22)
[2024-10-24] MEDS: POTASSIUM CHLORIDE 10 MEQ TABCR PO ONE (15:22)
--- NOTE | 2024-10-24 15:28 | Hospitalist Progress Note ---
Date of Service October 24, 2024 Assessment & Plan (1) Falling: Plan Generalized weakness Recurrent falls UTI sinusitis Patient comes in with recurrent falls and reports generalized weakness. Patient is on blood thinner. Admitting C-spine CT, lumbar spine and thorax his spine CT and CT head reviewed with no acute fractures Or bleed. Neg orthostatic vitals. Fall precaution, PT/OT. Rule out infection, WBC WNL, UA s/o UTI, f/u admitting Urine and blood cx. urine growing Klebsiella pneumonia. Concern for sinusitis And UTI, c/w Unasyn 10/20. plan for 10 d atb Rx. Pulmonary edema/Acute on chronic HFrEF: iso ho HF (EF this adm 45-50%, similar to prior0, after 500 mL NSS bolus on 10/21. Relieved with iv Lasix. Continue with po Lasix, additional iv lasix dose today. c/w home coreg, statin, entresto. FR 1500ml, low Na diet, HH diet Is and O2, CHF education, cards f/u on dc. Severe Hyponatremia: Admitting sodium of 119, baseline sodium around 140. 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 Pt eating better, Na gradually trending up. Nephro on board, appreciate recs Severe hypokalemia: Admitting potassium of 2.9, KCl repleted. Continue with home supplementation. Resolved. Acute kidney injury: Baseline creatinine of 0.27 to-0.4, admitting creatinine of 1.31. s/p IVF, resolved. Chronic elevation of troponin: Troponin minimally elevated, less than prior levels. Patient denies chest pain, continue monitoring over telemetry. History of multiple cancer Abnormal thoracic and lumbar spine CT: Noted during this admission. Patient updated on findings concerning for bone lesions, hepatic lesions, pulmonary lesion. Patient reports that she has not followed up with oncology in the last few years. Patient advised to follow-up with oncology for further workup on this. DVT Px: pt on eliquis Full code. pt/ot, recs is rehab, cm to assist w/ dc plan.likely dc in next 2-3 days. Admission and Anticipated Discharge Date Admission Date: October 20, 2024 Subjective Patient was seen and examined at bedside. Patient was sitting up in bed, on 3L NC O2, NAD, resting comfortably. Patient denies headache or nausea or vomiting, reports eating better. Patient reports chronic dizziness. Patient denies chest pain. Reports some sob, received additional 10 mg iv lasix. Physical Exam Physical Exam: GENERAL: Alert and oriented x3. NAD, on 3L NC O2. Appears chronically ill, sick, frail. HEENT: No pallor, no icterus. Pupils equal, round and reactive to light. Oral mucosa Moist. NECK: No JVD, no neck masses. HEART: S1 and S2 heard. Regular rate and rhythm. No murmur, no gallop. RESPIRATORY SYSTEM: Normal AP diameter. No accessory muscle use. No wheezing, b/l crackles +ve. ABDOMEN: Soft, bowel sounds present, nontender, no distention. CENTRAL NERVOUS SYSTEM: No facial droop. Speech is clear. Obeys simple commands. Moves extremities. EXTREMITIES: No edema, no erythema seen. Results & Data Results & Data Vital Signs (Past 12 Hours) Vital Signs Temp Pulse Pulse Resp BP Pulse Ox O2 Del Method 10/24/24 11:34 36.3 C L 83 18 161/75 H 94 Nasal Cannula 10/24/24 09:00 82 10/24/24 08:00 Nasal Cannula 10/24/24 07:51 36.6 C 79 18 147/76 H 95 Room Air 10/24/24 03:45 79 O2 Flow Rate 10/24/24 11:34 10/24/24 09:00 10/24/24 08:00 3 10/24/24 07:51 10/24/24 03:45
[2024-10-24] MEDS: MAGNESIUM CHLORIDE W/CALCIUM 64MG DELAYED REL TAB PO SCH (21:16)
[2024-10-25] MEDS: MELATONIN 3 MG TAB PO STA (03:19)
[2024-10-25 07:47] LABS: Hematocrit (blood only) 26.4 % (37.0-47.0); Hemoglobin 9.0 g/dl (12.0-16.0); Mean Corpuscular Hemoglobin 32.4 pg (25.0-34.0); Mean Corpuscular Volume 95.0 fL (80.0-100.0); Platelet Count 259 K/uL (130-400); RDW Standard Deviation 46.3 fL (36.4-46.3); Red Blood Count 2.78 M/uL (4.20-5.40); White Blood Count 4.96 K/ul (4.8-10.8)
[2024-10-25 08:17] LABS: Anion Gap 7.0 (3-11); Blood Urea Nitrogen 13.0 mg/dl (6-23); Calcium 8.4 mg/dl (8.6-10.3); Carbon Dioxide 31.0 mmol/L (21-32); Chloride 99.0 mmol/L (98-107); Creatinine Clr Calc Pharmacy 76.9 ml/min; Glucose 110.0 mg/dl (70-99(Fasting)); Magnesium 1.4 mg/dl (1.7-2.4); Potassium 3.4 mmol/L (3.5-5.1); Sodium 137.0 mmol/L (136-145)
[2024-10-25] MEDS: CHOLECALCIFEROL 25 MCG (1000 UNITS) TAB PO SCH (09:23)
[2024-10-25] MEDS: MAGNESIUM OXIDE 400 MG TAB PO SCH (09:47)
[2024-10-25] MEDS: MAGNESIUM SULFATE / D5W 1 GM/100 ML BAG IV SCH (09:55)
--- NOTE | 2024-10-25 12:00 | Nephrology Progress Note ---
Date of Service October 25, 2024 Assessment & Plan (1) Acute hyponatremia: Plan: resolved initially severe hypovolemic Hyponatremia w/ challenging volume status Admitting sodium of 119, urine studies point towards a volume contracted state, she got 1.5 lit of NS and had a rapid correction overnight with Sodium increasing [id number] to 123 in 5 hr; started on 60 mls/hr of D5W. -sodium dropped to 120 mid day 10/21 and was given 500 mL of normal saline, she went into pulmonary edema since then she has got 40 mg of IV Lasix - replace magnesium and calcium orally. No iv Fluids. 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 prior Ca hx noted >given HF and on today >> will change lasix to 40 mg IV bid x 3 days with po q 20 mEq qid same timeframe then back to 40 mg bid17 and K 20 mEq bid >maintain eukalemia (2) Hypokalemia: Plan: Severe hypokalemia. Follow-up BMP daily on K supplement 40 mEq bid >> will give extra dose today 10 mEq w/ lasix and follow (3) Acute kidney injury (nontraumatic): Plan: Acute kidney injury: Baseline creatinine of 0.27 to-0.4, admitting creatinine of 1.31. Cr now back to baseline -entresto resumed now; cont lasix Admission and Anticipated Discharge Date Admission Date: October 20, 2024 Subjective no sob, no dyspnea, no edema Review of Systems 2 Review of Systems: All systems reviewed & are unremarkable except as noted in Subjective Physical Exam 2 Constitutional: well developed (lying flat in bed) and well nourished Eyes: EOM intact bilaterally ENMT: Mouth: + dry oral mucous membranes Respiratory: normal respiratory effort Auscultation: + diminished lung sounds Cardiovascular: RRR, no murmur, no edema Gastrointestinal (Abdomen): Inspection/Auscultation: + abdomen distended (slight) and + hyperactive bowel sounds Percussion/Palpation: abdomen soft; abdomen nontender Musculoskeletal: Extremities: strength 5/5 throughout Skin: no rashes, warm and dry Results & Data Vital Signs (Past 12 Hours) Vital Signs Temp Pulse Resp BP Pulse Ox O2 Del Method O2 Flow Rate 10/25/24 11:33 36.4 C L 78 18 144/73 H 93 Nasal Cannula 10/25/24 08:04 36.8 C 81 19 169/74 H 92 Nasal Cannula 2.0 10/25/24 08:00 Nasal Cannula 2 10/25/24 02:48 36.4 C L 77 18 145/75 H 93 Nasal Cannula 2.0 Laboratory Results 10/25/24 07:31 10/25/24 07:31
--- NOTE | 2024-10-25 12:09 | Hospitalist Progress Note ---
Date of Service October 25, 2024 Assessment & Plan (1) Falling: Plan Generalized weakness Recurrent falls UTI sinusitis Patient comes in with recurrent falls and reports generalized weakness. Patient is on blood thinner. Admitting C-spine CT, lumbar spine and thorax his spine CT and CT head reviewed with no acute fractures Or bleed. Neg orthostatic vitals. Fall precaution, PT/OT. Rule out infection, WBC WNL, UA s/o UTI, f/u admitting Urine and blood cx. urine growing Klebsiella pneumonia. Concern for sinusitis And UTI, c/w Unasyn 10/20. plan for 10 d atb Rx. Pulmonary edema/Acute on chronic HFrEF: iso ho HF (EF this adm 45-50%, similar to prior0, after 500 mL NSS bolus on 10/21. Relieved with iv Lasix. c/w home coreg, statin, entresto. FR 1500ml, low Na diet, HH diet Being diuresed, increasing lasix dose from today. Is and O2, CHF education, cards f/u on dc. Severe Hyponatremia: Admitting sodium of 119, baseline sodium around 140. 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 Pt eating better, Na gradually trending up. Nephro on board, appreciate recs Severe hypokalemia: Admitting potassium of 2.9, KCl repleted. Continue with home supplementation. Resolved. Acute kidney injury: Baseline creatinine of 0.27 to-0.4, admitting creatinine of 1.31. s/p IVF, resolved. Chronic elevation of troponin: Troponin minimally elevated, less than prior levels. Patient denies chest pain, continue monitoring over telemetry. History of multiple cancer Abnormal thoracic and lumbar spine CT: Noted during this admission. Patient updated on findings concerning for bone lesions, hepatic lesions, pulmonary lesion. Patient reports that she has not followed up with oncology in the last few years. Patient advised to follow-up with oncology for further workup on this. DVT Px: pt on eliquis Full code. pt/ot, recs is rehab, cm to assist w/ dc plan. likely dc in next 2-3 days. Admission and Anticipated Discharge Date Admission Date: October 20, 2024 Subjective Patient was seen and examined at bedside. Patient was sitting up in bed, on 2L NC O2, NAD, resting comfortably. Patient denies headache or nausea or vomiting, reports eating better. Patient reports chronic dizziness. Patient denies chest pain. Reports improving sob today. d/w nephro, plan to increase diuresis for now. Physical Exam Physical Exam: GENERAL: Alert and oriented x3. NAD, on 2L NC O2. Appears chronically ill, sick, frail. HEENT: No pallor, no icterus. Pupils equal, round and reactive to light. Oral mucosa Moist. NECK: No JVD, no neck masses. HEART: S1 and S2 heard. Regular rate and rhythm. No murmur, no gallop. RESPIRATORY SYSTEM: Normal AP diameter. No accessory muscle use. No wheezing, b/l crackles +ve, slightly improved today. ABDOMEN: Soft, bowel sounds present, nontender, no distention. CENTRAL NERVOUS SYSTEM: No facial droop. Speech is clear. Obeys simple commands. Moves extremities. EXTREMITIES: No edema, no erythema seen. Results & Data Results & Data Vital Signs (Past 12 Hours) Vital Signs Temp Pulse Resp BP Pulse Ox O2 Del Method O2 Flow Rate 10/25/24 11:33 36.4 C L 78 18 144/73 H 93 Nasal Cannula 10/25/24 08:04 36.8 C 81 19 169/74 H 92 Nasal Cannula 2.0 10/25/24 08:00 Nasal Cannula 2 10/25/24 02:48 36.4 C L 77 18 145/75 H 93 Nasal Cannula 2.0
[2024-10-25] MEDS: FUROSEMIDE 40 MG/4 ML VIAL IV SCH (13:28)
[2024-10-25] MEDS: POTASSIUM CHLORIDE CRTAB 20 MEQ TABCR PO SCH (13:28)
[2024-10-25] MEDS: MELATONIN 3 MG TAB PO PRN (19:44)
[2024-10-25] MEDS: AMOXICILLIN/CLAVULANATE 875 MG TAB PO SCH (19:48)
[2024-10-26 07:56] LABS: Hematocrit (blood only) 28.7 % (37.0-47.0); Hemoglobin 10.0 g/dl (12.0-16.0); Mean Corpuscular Hemoglobin 32.7 pg (25.0-34.0); Mean Corpuscular Volume 93.8 fL (80.0-100.0); Platelet Count 307 K/uL (130-400); RDW Standard Deviation 45.4 fL (36.4-46.3); Red Blood Count 3.06 M/uL (4.20-5.40); White Blood Count 6.11 K/ul (4.8-10.8)
[2024-10-26 08:16] LABS: Anion Gap 7.0 (3-11); Blood Urea Nitrogen 13.0 mg/dl (6-23); Calcium 9.0 mg/dl (8.6-10.3); Carbon Dioxide 30.0 mmol/L (21-32); Chloride 96.0 mmol/L (98-107); Creatinine Clr Calc Pharmacy 65.1 ml/min; Glucose 104.0 mg/dl (70-99(Fasting)); Magnesium 1.5 mg/dl (1.7-2.4); Potassium 3.8 mmol/L (3.5-5.1); Sodium 133.0 mmol/L (136-145)
--- NOTE | 2024-10-26 11:22 | Nephrology Progress Note ---
Date of Service October 26, 2024 Assessment & Plan (1) Acute hyponatremia: Plan: resolved initially severe hypovolemic Hyponatremia w/ challenging volume status Admitting sodium of 119, urine studies point towards a volume contracted state, she got 1.5 lit of NS and had a rapid correction overnight with Sodium increasing [id number] to 123 in 5 hr; started on 60 mls/hr of D5W. -sodium dropped to 120 mid day 10/21 and was given 500 mL of normal saline, she went into pulmonary edema since then she has got 40 mg of IV Lasix - replace magnesium and calcium orally. No iv Fluids. 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 prior Ca hx noted sNa 137 > 133 on higher dose of lasix and pt 2+ L negative past 24 hrs. magnesium 1.5 today >> stopped mag ox and increased slo mag dose to 64 mg tid >given HF and on recently and drop in Na >> will change lasix to 20 mg IV bid x 2 days with leave K po q 20 mEq qid same timeframe then back to 40 mg po daily and K 20 mEq bid >daily BMP >maintain eukalemia >cont 1.5L FR Lasix dosing and changes reviewed w/ Dr Ross via TText as above; we are in agreement. (2) Hypokalemia: Plan: Follow-up BMP daily on K supplement 40 mEq bid >> extra dosing as above will then follow (3) Acute kidney injury (nontraumatic): Plan: Resolved stage III JUAN. Baseline creatinine of 0.27 to-0.4, admitting creatinine of 1.31. Cr now back to baseline -entresto resumed now; cont lasix Admission and Anticipated Discharge Date Admission Date: October 20, 2024 Physical Exam 2 Constitutional: well developed (lying flat in bed) and well nourished Eyes: EOM intact bilaterally ENMT: Mouth: + dry oral mucous membranes Respiratory: normal respiratory effort Auscultation: + diminished lung sounds Cardiovascular: RRR, no murmur, no edema Gastrointestinal (Abdomen): Inspection/Auscultation: + abdomen distended (slight), normal bowel sounds and + hyperactive bowel sounds P ercussion/Palpation: abdomen soft; abdomen nontender Musculoskeletal: Extremities: strength 5/5 throughout Skin: no rashes, warm and dry Results & Data Vital Signs (Past 12 Hours) Vital Signs Temp Pulse Pulse Resp BP Pulse Ox O2 Del Method 10/26/24 08:26 36.2 C L 72 17 149/81 H 93 Room Air 10/26/24 07:41 65 10/26/24 07:30 Nasal Cannula 10/26/24 03:23 36.2 C L 75 19 155/82 H 90 Nasal Cannula O2 Flow Rate 10/26/24 08:26 10/26/24 07:41 10/26/24 07:30 2 10/26/24 03:23 Laboratory Results 10/26/24 07:29 10/26/24 07:29
--- NOTE | 2024-10-26 11:26 | Hospitalist Progress Note ---
Date of Service October 26, 2024 Assessment & Plan (1) Falling: Plan Generalized weakness Recurrent falls UTI sinusitis Patient comes in with recurrent falls and reports generalized weakness. . Admitting C-spine CT, lumbar spine and thorax his spine CT and CT head reviewed with no acute fractures Or bleed. Neg orthostatic vitals. Fall precaution, PT/OT. Rule out infection, WBC WNL, UA s/o UTI, f/u admitting Urine and blood cx. urine growing Klebsiella pneumonia. Concern for sinusitis And UTI, c/w Unasyn 10/20. plan for 10 d atb Rx. Pulmonary edema/Acute on chronic HFrEF: iso ho HF (EF this adm 45-50%, similar to prior0, after 500 mL NSS bolus on 10/21. Relieved with iv Lasix. c/w home coreg, statin, entresto. FR 1500ml, low Na diet, HH diet s/p lasix Severe Hyponatremia: Admitting sodium of 119, baseline sodium around 140. 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 Pt eating better, Na gradually trending up. Nephro on board Severe hypokalemia: Admitting potassium of 2.9, KCl repleted. Continue with home supplementation. Resolved. Acute kidney injury: Baseline creatinine of 0.27 to-0.4, admitting creatinine of 1.31. s/p IVF, resolved. Chronic elevation of troponin: Troponin minimally elevated, less than prior levels. Patient denies chest pain, continue monitoring over telemetry. History of breast/ovarian ca Abnormal thoracic and lumbar spine CT: Noted during this admission. Patient updated on findings concerning for bone lesions, hepatic lesions, pulmonary lesion. Patient reports that she has not followed up with oncology in the last few years. Discussed with patient regarding the findings again on 10/26/2024; she would like to follow up with oncology as outpatient after rehab. I discussed urgency of the issues; she verbalized understanding. DVT Px: pt on eliquis Full code. pt/ot, recs is rehab, cm to assist w/ dc plan. likely dc in next 2-3 days. Please note the above document was generated using voice recognition software. It may contain grammatical, syntax or spelling errors. Any formal questions or concerns about the content, text or information contained within the body of this dictation should be directly addressed to the provider for clarification Admission and Anticipated Discharge Date Admission Date: October 20, 2024 Subjective Patient seen and examined at bedside. She is comfortable; not in distress Denies any pain or discomfort. Review of Systems Review of Systems: All systems reviewed & are unremarkable except as noted in Subjective Physical Exam Physical Exam: GENERAL: Alert and oriented x3. NAD, on 2L NC O2. Appears chronically ill, sick, frail. HEENT: No pallor, no icterus. Pupils equal, round and reactive to light. Oral mucosa Moist. NECK: No JVD, no neck masses. HEART: S1 and S2 heard. Regular rate and rhythm. No murmur, no gallop. RESPIRATORY SYSTEM: Normal AP diameter. No accessory muscle use. No wheezing, ABDOMEN: Soft, bowel sounds present, nontender, no distention. CENTRAL NERVOUS SYSTEM: No facial droop. Speech is clear. Obeys simple commands. Moves extremities. EXTREMITIES: No edema, no erythema seen. Results & Data Results & Data Vital Signs (Past 12 Hours) Vital Signs Temp Pulse Pulse Resp BP Pulse Ox O2 Del Method 10/26/24 08:26 36.2 C L 72 17 149/81 H 93 Room Air 10/26/24 07:41 65 10/26/24 07:30 Nasal Cannula 10/26/24 03:23 36.2 C L 75 19 155/82 H 90 Nasal Cannula O2 Flow Rate 10/26/24 08:26 10/26/24 07:41 10/26/24 07:30 2 10/26/24 03:23
[2024-10-26] MEDS: FUROSEMIDE INJ 20 MG/2 ML VIAL IV SCH (13:02)
[2024-10-26] MEDS: MAGNESIUM CHLORIDE W/CALCIUM 64MG DELAYED REL TAB PO SCH (20:06)
[2024-10-27 06:38] LABS: Hematocrit (blood only) 28.9 % (37.0-47.0); Hemoglobin 10.1 g/dl (12.0-16.0); Immature Granulocytes # (auto) 0.01 K/uL (0.01-0.20); Immature Granulocytes % (auto) 0.2 %; Mean Corpuscular Hemoglobin 32.6 pg (25.0-34.0); Mean Corpuscular Volume 93.2 fL (80.0-100.0); Platelet Count 304 K/uL (130-400); RDW Standard Deviation 44.9 fL (36.4-46.3); Red Blood Count 3.10 M/uL (4.20-5.40); White Blood Count 5.59 K/ul (4.8-10.8)
[2024-10-27 06:48] LABS: Anion Gap 9.0 (3-11); Blood Urea Nitrogen 16.0 mg/dl (6-23); Calcium 8.8 mg/dl (8.6-10.3); Carbon Dioxide 26.0 mmol/L (21-32); Chloride 96.0 mmol/L (98-107); Creatinine Clr Calc Pharmacy 57.4 ml/min; Glucose 98.0 mg/dl (70-99(Fasting)); Potassium 3.9 mmol/L (3.5-5.1); Sodium 131.0 mmol/L (136-145)
--- NOTE | 2024-10-27 13:01 | Nephrology Progress Note ---
Date of Service October 27, 2024 Assessment & Plan (1) Acute hyponatremia: Plan: resolved initially severe hypovolemic Hyponatremia w/ challenging volume status Admitting sodium of 119, urine studies point towards a volume contracted state, she got 1.5 lit of NS and had a rapid correction overnight with Sodium increasing [id number] to 123 in 5 hr; started on 60 mls/hr of D5W. -sodium dropped to 120 mid day 10/21 and was given 500 mL of normal saline, she went into pulmonary edema since then she has got 40 mg of IV Lasix - replace magnesium and calcium orally. No iv Fluids. 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 prior Ca hx noted sNa 137 > 133 > 131; on higher dose of lasix and pt 2+ L negative past 24 hrs. magnesium 1.5 today >> stopped mag ox and increased slo mag dose to 64 mg tid >given HF and on recently and drop in Na >> will change lasix to 20 mg IV bid x 2 days with leave K po q 20 mEq qid same timeframe then back to 40 mg po daily and K 20 mEq bid >daily BMP >maintain eukalemia >cont 1.5L FR pt reportedly for d/c today. will sign off. neph D/c recs: Dx: -resolved Stage 3 JUAN -chronic mild hyponatremia RX: -lasix 40 mg po bid14 -K 20 mEq tid -entresto per admission dosing -slo mag w/ calcium po tid f/u care: -1.5 L fluid limit -under 2 gm daily sodium diet -bmp, mag weekly x 3 after d/c to be ordered by PCP/accepting provider -bmp, mag, serum & urine osms, prot/creat ratio, uacm to be done week of appt w/ me and ordered by neph nurse f/u appts: -hospital d/c appt w/ me 2-4 wks after d/c Lasix dosing and changes reviewed w/ Dr Ross via TText as above; we are in agreement. (2) Hypokalemia: Plan: Follow-up BMP daily on K supplement 40 mEq bid >> extra dosing as above will then follow (3) Acute kidney injury (nontraumatic): Plan: Resolved stage III JUAN. Baseline creatinine of 0.27 to-0.4, admitting creatinine of 1.31. Cr now back to baseline -entresto resumed now; cont lasix Admission and Anticipated Discharge Date Admission Date: October 20, 2024 Physical Exam 2 Constitutional: well developed (lying flat in bed) and well nourished Eyes: EOM intact bilaterally ENMT: Mouth: + dry oral mucous membranes Respiratory: normal respiratory effort Auscultation: + diminished lung sounds Cardiovascular: RRR, no murmur, no edema Gastrointestinal (Abdomen): Inspection/Auscultation: + abdomen distended (slight), normal bowel sounds and + hyperactive bowel sounds P ercussion/Palpation: abdomen soft; abdomen nontender Musculoskeletal: Extremities: strength 5/5 throughout Skin: no rashes, warm and dry Results & Data Vital Signs (Past 12 Hours) Vital Signs Temp Pulse Pulse Resp BP Pulse Ox O2 Del Method 10/27/24 11:44 Room Air 10/27/24 11:26 36.6 C 76 14 99/56 L 97 Room Air 10/27/24 07:11 69 10/27/24 05:14 73 10/27/24 03:08 36.5 C 70 21 153/72 H 96 Nasal Cannula O2 Flow Rate 10/27/24 11:44 10/27/24 11:26 10/27/24 07:11 10/27/24 05:14 10/27/24 03:08 2 Laboratory Results 10/27/24 06:07 10/27/24 06:07
--- NOTE | 2024-10-27 13:36 | Hospitalist Progress Note ---
Date of Service October 27, 2024 Assessment & Plan (1) Falling: Plan Generalized weakness Recurrent falls UTI sinusitis Patient comes in with recurrent falls and reports generalized weakness. Admitting C-spine CT, lumbar spine and thorax his spine CT and CT head reviewed with no acute fractures Or bleed. Neg orthostatic vitals. Fall precaution, PT/OT. Rule out infection, WBC WNL, UA s/o UTI, f/u admitting Urine and blood cx. urine growing Klebsiella pneumonia. Concern for sinusitis And UTI, c/w Unasyn 10/20. plan for 10 d atb Rx. Pulmonary edema/Acute on chronic HFrEF: iso ho HF (EF this adm 45-50%, similar to prior0, after 500 mL NSS bolus on 10/21. Relieved with iv Lasix. c/w home coreg, statin, entresto. FR 1500ml, low Na diet, HH diet on lasix Severe Hyponatremia: Admitting sodium of 119, baseline sodium around 140. 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 Pt eating better, Na gradually trending up. Nephro on board Severe hypokalemia: Admitting potassium of 2.9, KCl repleted. Continue with home supplementation. Resolved. Acute kidney injury: Baseline creatinine of 0.27 to-0.4, admitting creatinine of 1.31. s/p IVF, resolved. Chronic elevation of troponin: Troponin minimally elevated, less than prior levels. Patient denies chest pain, continue monitoring over telemetry. History of breast/ovarian ca Abnormal thoracic and lumbar spine CT: Noted during this admission. Patient updated on findings concerning for bone lesions, hepatic lesions, pulmonary lesion. Patient reports that she has not followed up with oncology in the last few years. Discussed with patient regarding the findings again on 10/26/2024; she would like to follow up with oncology as outpatient after rehab. DVT Px: pt on eliquis Full code. pt/ot, recs is rehab, cm to assist w/ dc plan. dc when placement aviable Please note the above document was generated using voice recognition software. It may contain grammatical, syntax or spelling errors. Any formal questions or concerns about the content, text or information contained within the body of this dictation should be directly addressed to the provider for clarification Admission and Anticipated Discharge Date Admission Date: October 20, 2024 Subjective Patient seen and examined at bedside. Comfortable; not in distress. Denies fever, chills, chest pain, shortness of breath, abdominal pain or urinary symptoms. No significant overnight events Review of Systems Review of Systems: All systems reviewed & are unremarkable except as noted in Subjective Physical Exam Physical Exam: GENERAL: Alert and oriented x3. NAD HEENT: No pallor, no icterus. Pupils equal, round and reactive to light. Oral mucosa Moist. NECK: No JVD, no neck masses. HEART: S1 and S2 heard. Regular rate and rhythm. No murmur, no gallop. RESPIRATORY SYSTEM: Normal AP diameter. No accessory muscle use. No wheezing, ABDOMEN: Soft, bowel sounds present, nontender, no distention. CENTRAL NERVOUS SYSTEM: No facial droop. Speech is clear. Obeys simple commands. Moves extremities. EXTREMITIES: No edema, no erythema seen. Results & Data Results & Data Vital Signs (Past 12 Hours) Vital Signs Temp Pulse Pulse Resp BP Pulse Ox O2 Del Method 10/27/24 11:44 Room Air 10/27/24 11:26 36.6 C 76 14 99/56 L 97 Room Air 10/27/24 07:11 69 10/27/24 05:14 73 10/27/24 03:08 36.5 C 70 21 153/72 H 96 Nasal Cannula O2 Flow Rate 10/27/24 11:44 10/27/24 11:26 10/27/24 07:11 10/27/24 05:14 10/27/24 03:08 2
[2024-10-28] MEDS: LORazepam 0.5 MG TAB PO STA ×2 (01:40→20:50)
[2024-10-28 07:49] LABS: Hematocrit (blood only) 28.5 % (37.0-47.0); Hemoglobin 9.9 g/dl (12.0-16.0); Immature Granulocytes # (auto) 0.02 K/uL (0.01-0.20); Immature Granulocytes % (auto) 0.3 %; Mean Corpuscular Hemoglobin 32.2 pg (25.0-34.0); Mean Corpuscular Volume 92.8 fL (80.0-100.0); Platelet Count 309 K/uL (130-400); RDW Standard Deviation 44.9 fL (36.4-46.3); Red Blood Count 3.07 M/uL (4.20-5.40); White Blood Count 6.40 K/ul (4.8-10.8)
[2024-10-28 08:36] LABS: Anion Gap 7.0 (3-11); Blood Urea Nitrogen 18.0 mg/dl (6-23); Calcium 8.9 mg/dl (8.6-10.3); Carbon Dioxide 25.0 mmol/L (21-32); Chloride 99.0 mmol/L (98-107); Creatinine Clr Calc Pharmacy 57.4 ml/min; Glucose 102.0 mg/dl (70-99(Fasting)); Potassium 4.1 mmol/L (3.5-5.1); Sodium 131.0 mmol/L (136-145)
--- NOTE | 2024-10-28 12:57 | Hospitalist Progress Note ---
Date of Service October 28, 2024 Assessment & Plan (1) Falling: Plan Generalized weakness Recurrent falls UTI sinusitis Patient comes in with recurrent falls and reports generalized weakness. Admitting C-spine CT, lumbar spine and thorax his spine CT and CT head reviewed with no acute fractures Or bleed. Neg orthostatic vitals. Fall precaution, PT/OT. Rule out infection, WBC WNL, UA s/o UTI, f/u admitting Urine and blood cx. urine growing Klebsiella pneumonia. Concern for sinusitis And UTI, c/w Unasyn 10/20. plan for 10 d atb Rx. Pulmonary edema/Acute on chronic HFrEF: iso ho HF (EF this adm 45-50%, similar to prior0, after 500 mL NSS bolus on 10/21. Relieved with iv Lasix. c/w home coreg, statin, entresto. FR 1500ml, low Na diet, HH diet on lasix Severe Hyponatremia: Admitting sodium of 119, baseline sodium around 140. 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 Pt eating better, Na gradually trending up. Nephro on board Severe hypokalemia: Admitting potassium of 2.9, KCl repleted. Continue with home supplementation. Resolved. Acute kidney injury: Baseline creatinine of 0.27 to-0.4, admitting creatinine of 1.31. s/p IVF, resolved. Chronic elevation of troponin: Troponin minimally elevated, less than prior levels. Patient denies chest pain, continue monitoring over telemetry. History of breast/ovarian ca Abnormal thoracic and lumbar spine CT: Noted during this admission. Patient updated on findings concerning for bone lesions, hepatic lesions, pulmonary lesion. Patient reports that she has not followed up with oncology in the last few years. Discussed with patient regarding the findings again on 10/26/2024; she would like to follow up with oncology as outpatient after rehab. DVT Px: pt on eliquis Full code. pt/ot, recs is rehab, cm to assist w/ dc plan. dc when placement aviable Please note the above document was generated using voice recognition software. It may contain grammatical, syntax or spelling errors. Any formal questions or concerns about the content, text or information contained within the body of this dictation should be directly addressed to the provider for clarification Admission and Anticipated Discharge Date Admission Date: October 20, 2024 Subjective Patient sitting up at the side of the chair eating lunch; denies any pain or discomfort. No fever or chills overnight. Review of Systems Review of Systems: All systems reviewed & are unremarkable except as noted in Subjective Physical Exam Physical Exam: GENERAL: Alert and oriented x3. NAD HEENT: No pallor, no icterus. Pupils equal, round and reactive to light. Oral mucosa Moist. NECK: No JVD, no neck masses. HEART: S1 and S2 heard. Regular rate and rhythm. No murmur, no gallop. RESPIRATORY SYSTEM: Normal AP diameter. No accessory muscle use. No wheezing, ABDOMEN: Soft, bowel sounds present, nontender, no distention. CENTRAL NERVOUS SYSTEM: No facial droop. Speech is clear. Obeys simple commands. Moves extremities. EXTREMITIES: No edema, no erythema seen. Results & Data Results & Data Vital Signs (Past 12 Hours) Vital Signs Temp Pulse Resp BP Pulse Ox O2 Del Method 10/28/24 07:03 36.7 C 70 16 136/74 96 Room Air
[2024-10-29 06:57] VITALS: RESP 16
[2024-10-29 08:21] LABS: Anion Gap 7.0 (3-11); Blood Urea Nitrogen 14.0 mg/dl (6-23); Calcium 8.8 mg/dl (8.6-10.3); Carbon Dioxide 23.0 mmol/L (21-32); Chloride 98.0 mmol/L (98-107); Creatinine Clr Calc Pharmacy 69.1 ml/min; Glucose 105.0 mg/dl (70-99(Fasting)); Potassium 4.0 mmol/L (3.5-5.1); Sodium 128.0 mmol/L (136-145)
[2024-10-29] MEDS: FUROSEMIDE 40 MG TAB PO SCH (09:55)
--- NOTE | 2024-10-29 11:39 | Hospitalist Progress Note ---
Date of Service October 29, 2024 Assessment & Plan (1) Falling: Plan Generalized weakness Recurrent falls UTI sinusitis Patient comes in with recurrent falls and reports generalized weakness. Admitting C-spine CT, lumbar spine and thorax his spine CT and CT head reviewed with no acute fractures Or bleed. Neg orthostatic vitals. Fall precaution, PT/OT. Rule out infection, WBC WNL, UA s/o UTI, f/u admitting Urine and blood cx. urine growing Klebsiella pneumonia. Concern for sinusitis And UTI, c/w Unasyn 10/20. plan for 10 d atb Rx. Pulmonary edema/Acute on chronic HFrEF: iso ho HF (EF this adm 45-50%, similar to prior0, after 500 mL NSS bolus on 10/21. Relieved with iv Lasix. c/w home coreg, statin, entresto. FR 1500ml, low Na diet, HH diet on lasix Severe Hyponatremia: Admitting sodium of 119, baseline sodium around 140. 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 Pt eating better, Na gradually trending up. Nephro on board; on lasix 40mg bid Severe hypokalemia: Admitting potassium of 2.9, KCl repleted. Continue with home supplementation. Resolved. Acute kidney injury: Baseline creatinine of 0.27 to-0.4, admitting creatinine of 1.31. s/p IVF, resolved. Chronic elevation of troponin: Troponin minimally elevated, less than prior levels. Patient denies chest pain, continue monitoring over telemetry. History of breast/ovarian ca Abnormal thoracic and lumbar spine CT: Noted during this admission. Patient updated on findings concerning for bone lesions, hepatic lesions, pulmonary lesion. Patient reports that she has not followed up with oncology in the last few years. Discussed with patient regarding the findings again on 10/26/2024; she would like to follow up with oncology as outpatient after rehab. DVT Px: pt on eliquis Full code. pt/ot, recs is rehab, cm to assist w/ dc plan. Please note the above document was generated using voice recognition software. It may contain grammatical, syntax or spelling errors. Any formal questions or concerns about the content, text or information contained within the body of this dictation should be directly addressed to the provider for clarification Admission and Anticipated Discharge Date Admission Date: October 20, 2024 Subjective Patient seen and examined at bedside. Comfortable; not in distress. Denies fever, chills, chest pain, shortness of breath, abdominal pain or urinary symptoms. No significant overnight events Review of Systems Review of Systems: All systems reviewed & are unremarkable except as noted in Subjective Physical Exam Physical Exam: GENERAL: Alert and oriented x3. NAD HEENT: No pallor, no icterus. Pupils equal, round and reactive to light. Oral mucosa Moist. NECK: No JVD, no neck masses. HEART: S1 and S2 heard. Regular rate and rhythm. No murmur, no gallop. RESPIRATORY SYSTEM: Normal AP diameter. No accessory muscle use. No wheezing, ABDOMEN: Soft, bowel sounds present, nontender, no distention. CENTRAL NERVOUS SYSTEM: No facial droop. Speech is clear. Obeys simple commands. Moves extremities. EXTREMITIES: No edema, no erythema seen. Results & Data Results & Data Vital Signs (Past 12 Hours) Vital Signs Temp Pulse Resp BP Pulse Ox O2 Del Method 10/29/24 06:56 36.4 C L 71 16 153/73 H 97 Room Air
[2024-10-30] MEDS: LORazepam 0.5 MG TAB PO STA (02:19)
[2024-10-30 07:55] LABS: Anion Gap 9.0 (3-11); Blood Urea Nitrogen 18.0 mg/dl (6-23); Calcium 8.9 mg/dl (8.6-10.3); Carbon Dioxide 19.0 mmol/L (21-32); Chloride 99.0 mmol/L (98-107); Creatinine Clr Calc Pharmacy 61.5 ml/min; Glucose 101.0 mg/dl (70-99(Fasting)); Potassium 4.7 mmol/L (3.5-5.1); Sodium 127.0 mmol/L (136-145)
--- NOTE | 2024-10-30 13:13 | Hospitalist Progress Note ---
Date of Service October 30, 2024 Assessment & Plan (1) Falling: Plan Generalized weakness Recurrent falls UTI sinusitis Patient comes in with recurrent falls and reports generalized weakness. Admitting C-spine CT, lumbar spine and thorax his spine CT and CT head reviewed with no acute fractures Or bleed. Neg orthostatic vitals. Fall precaution, PT/OT. Rule out infection, WBC WNL, UA s/o UTI, f/u admitting Urine and blood cx. urine growing Klebsiella pneumonia. Concern for sinusitis And UTI, c/w Unasyn 10/20. plan for 10 d atb Rx. Pulmonary edema/Acute on chronic HFrEF: iso ho HF (EF this adm 45-50%, similar to prior0, after 500 mL NSS bolus on 10/21. Relieved with iv Lasix. c/w home coreg, statin, entresto. FR 1500ml, low Na diet, HH diet on lasix Severe Hyponatremia: Admitting sodium of 119, baseline sodium around 140. Urine Osm 352, Urine Na 22, Serum Osm 263 Likely SIADH, likely poor PO intake [employer] contributory. Nephro on board; on lasix 40mg bid Severe hypokalemia: Admitting potassium of 2.9, KCl repleted. Continue with home supplementation. Resolved. Acute kidney injury: Baseline creatinine of 0.27 to-0.4, admitting creatinine of 1.31. s/p IVF, resolved. Chronic elevation of troponin: Troponin minimally elevated, less than prior levels. Patient denies chest pain, continue monitoring over telemetry. History of breast/ovarian ca Abnormal thoracic and lumbar spine CT: Noted during this admission. Patient updated on findings concerning for bone lesions, hepatic lesions, pulmonary lesion. Patient reports that she has not followed up with oncology in the last few years. Discussed with patient regarding the findings again on 10/26/2024; she would like to follow up with oncology as outpatient after rehab. DVT Px: pt on eliquis Full code. pt/ot, recs is rehab, cm to assist w/ dc plan. Please note the above document was generated using voice recognition software. It may contain grammatical, syntax or spelling errors. Any formal questions or concerns about the content, text or information contained within the body of this dictation should be directly addressed to the provider for clarification Admission and Anticipated Discharge Date Admission Date: October 20, 2024 Subjective Patient seen and examined bedside. She is comfortable; not in distress Review of Systems Review of Systems: All systems reviewed & are unremarkable except as noted in Subjective Physical Exam Physical Exam: GENERAL: Alert and oriented x3. NAD HEENT: No pallor, no icterus. Pupils equal, round and reactive to light. Oral mucosa Moist. NECK: No JVD, no neck masses. HEART: S1 and S2 heard. Regular rate and rhythm. No murmur, no gallop. RESPIRATORY SYSTEM: Normal AP diameter. No accessory muscle use. No wheezing, ABDOMEN: Soft, bowel sounds present, nontender, no distention. CENTRAL NERVOUS SYSTEM: No facial droop. Speech is clear. Obeys simple commands. Moves extremities. EXTREMITIES: No edema, no erythema seen. Results & Data Results & Data Vital Signs (Past 12 Hours) Vital Signs Temp Pulse Resp BP Pulse Ox O2 Del Method 10/30/24 07:16 36.7 C 69 16 125/65 97 Room Air
[2024-10-30] MEDS: FUROSEMIDE 20 MG TAB PO SCH (13:40)
[2024-10-30 22:15] VITALS: TEMP 97.7
[2024-10-31] MEDS: LORazepam 0.5 MG TAB PO STA (02:46)
[2024-10-31 07:13] VITALS: BP 94/58; PULSE 72; O2SAT 95
[2024-10-31 07:33] LABS: Anion Gap 9.0 (3-11); Blood Urea Nitrogen 22.0 mg/dl (6-23); Calcium 8.9 mg/dl (8.6-10.3); Carbon Dioxide 21.0 mmol/L (21-32); Chloride 100.0 mmol/L (98-107); Creatinine Clr Calc Pharmacy 50.5 ml/min; Glucose 101.0 mg/dl (70-99(Fasting)); Potassium 4.5 mmol/L (3.5-5.1); Sodium 130.0 mmol/L (136-145)
--- NOTE | 2024-10-31 09:55 | Discharge Summary ---
Date of Service October 31, 2024 Admission HPI Per Admitting Provider 72-year-old lady with PMH of malignant neoplasm of ovary, prediabetes, HLD, pulmonary hypertension, chronic systolic heart failure, CAD, HTN, nonrheumatic mitral valve regurgitation, vitamin D deficiency, GERD, malignant neoplasm of large intestine and rectum, senile osteoporosis, malignant neoplasm of peritoneum, malignant neoplasm of intrapelvic lymph nodes, hyponatremia presents to the ED with complaint of recurrent fall and weakness. Patient reports she has been falling very frequently lately, but was able to get up and get around and hence she did not present to the hospital. Today she fell on her back while trying to go to the kitchen from her bedroom, could not get up and hence called EMS. Patient reports she has had very poor appetite and poor fluid intake in the last several days, reports that in general she does have poor appetite at baseline as well. Patient reports she has been feeling dizzy constantly throughout but denies any seizure-like activity or headache or blurry vision. Patient denies fever/sore throat/cough/chest pain/shortness of breath/belly pain/nausea/vomiting. Patient just reports that she does not have any appetite to eat or drink. Patient denies any pain or burning while passing urine, reports moving bowels okay at her baseline. Patient reports quitting smoking at age 44, reports drinking light beers 2 to 3/day and denies any withdrawal reactions in the past, last alcohol intake was 2 days ago [employer]. Denies recreational drug use. Full code as per my discussion with the patient. Medications reviewed with the patient at bedside. Plan of care discussed with the patient in detail, she voiced understanding. Admission Exam Per Admitting Provider GENERAL: Alert and oriented x3. Slow to respond, NAD, on RA. Appears chronically ill, sick, frail. HEENT: No pallor, no icterus. Pupils equal, round and reactive to light. Oral mucosa dry. NECK: No JVD, no neck masses. HEART: S1 and S2 heard. Regular rate and rhythm. No murmur, no gallop. RESPIRATORY SYSTEM: Normal AP diameter. No accessory muscle use. No wheezing, no crackles. ABDOMEN: Soft, bowel sounds present, nontender, no distention. CENTRAL NERVOUS SYSTEM: No facial droop. Speech is clear. Obeys simple commands. Moves extremities. EXTREMITIES: No edema, no erythema seen Principal Diagnosis Generalized weakness Recurrent falls Pulmonary edema Severe Hyponatremia: Discharge Exam GENERAL: Alert and oriented x3. NAD HEENT: No pallor, no icterus. Pupils equal, round and reactive to light. Oral mucosa Moist. NECK: No JVD, no neck masses. HEART: S1 and S2 heard. Regular rate and rhythm. No murmur, no gallop. RESPIRATORY SYSTEM: Normal AP diameter. No accessory muscle use. No wheezing, ABDOMEN: Soft, bowel sounds present, nontender, no distention. CENTRAL NERVOUS SYSTEM: No facial droop. Speech is clear. no focal neurological signs or symptoms EXTREMITIES: No edema, no erythema seen. Discharge Data Allergies Allergy/AdvReac Type Severity Reaction Status Date / Time diphenhydramine Allergy Severe Difficulty Verified 10/20/24 17:47 [From Benadryl] Breathing doxorubicin Allergy Severe CHEMO Verified 10/20/24 17:47 DRUG--UNKNOWN house dust Allergy Intermediate CONGESTION-ODORS, Verified 10/20/24 17:47 FUMES, DUST Consultations 10/20/24 18:19 ED Decision to Admit Stat 10/21/24 12:01 Consult Nephrology Routine Ordered Studies 10/20/24 14:33 CT cervical spine wo con Stat CT head/brain wo con Stat CT lumbar spine wo con Stat CT thoracic spine wo con Stat Hospital Course (1) Falling: Plan Generalized weakness Recurrent falls UTI sinusitis Patient comes in with recurrent falls and reports generalized weakness. Admitting C-spine CT, lumbar spine and thorax his spine CT and CT head reviewed with no acute fractures Or bleed. Patient was treated for UTI and sinusitis with 10 days of antibiotic; reported some improvement in generalized weakness. Patient was recommended to go to rehab by PT OT assessment. However, she was declined by her insurance despite [id number]. Patient opted to go home with home health Pulmonary edema/Acute on chronic HFrEF: iso ho HF (EF this adm 45-50%, similar to prior0, after 500 mL NSS bolus on 10/21. Relieved with iv Lasix. Discharged on Lasix 40 mg twice a day as per recommendation by nephrology Severe Hyponatremia: Admitting sodium of 119, baseline sodium around 140. Urine Osm 352, Urine Na 22, Serum Osm 263 Likely SIADH, likely poor PO intake [employer] contributory. Nephrology was consulted during the hospitalization; patient was treated with fluid restriction of 1500 cc and Lasix. Her serum sodium stabilized around 130 at the time of the discharge. Discussed with patient regarding fluid restriction in detail at the time of the discharge as she is at a high risk for recurrent hyponatremia. Patient verbalized understanding of the instructions. Nephrology recommends BMP, mag weekly for 3 weeks. Nephrology wants to follow- up with her in 2 to 4 weeks Severe hypokalemia: repeated; recommended to continue supplement Acute kidney injury: Baseline creatinine of 0.27 to-0.4, admitting creatinine of 1.31. s/p IVF, resolved. History of breast/ovarian ca Abnormal thoracic and lumbar spine CT: Noted during this admission. Lumbar spine CT showed following: "Nonspecific sclerotic foci and L2 vertebral body and additional scattered subcentimeter described foci in the lumbosacral spine Multiple ill-defined hepatic hypoattenuations which may represent hepatic metastases in the proper clinical context. Recommend clinical correlation with medical history. Incompletely characterized 4.5 cm soft tissue density structure in the mid pelvis Right basilar subpleural pulmonary nodule measuring 6 mm " These findings were discussed with the patient in great details. Patient reported that she would like to follow-up with her oncologist as outpatient and would not want further workup while she is in the hospital. Patient recommended to follow-up with oncologist as soon as possible for further work up. Please note the above document was generated using voice recognition software. It may contain grammatical, syntax or spelling errors. Any formal questions or concerns about the content, text or information contained within the body of this dictation should be directly addressed to the provider for clarification Total Time Total Time Spent Total Time Spent (In Minutes): 45 Total Time Includes: Examination of the Patient, Discharge Planning, Medication Reconciliation, Communication With Other Providers and Other Discharge Plan Discharge Items Patient Disposition: Home - Home Health Services Reason For Visit: FALLS, WEAKNESS Discharge Diagnosis: Plan Generalized weakness Recurrent falls UTI sinusitis Condition on Discharge: Fair Activity: Resume your previous activity Non-emergency contact: Primary Care Provider Call non-emergency contact if: you have any medication questions and your symptoms worsen Follow-up/Referrals: Marilyn West DO [Primary Care Provider] - Diet: Regular Fluids: 1500ml (6 cups) Addtl Attending Provider Instructions: You were admitted to the hospital due to low sodium level. Please limit your fluid intake to 1500 cc. The fluid includes water, ice, coffee, juice, tea. It does not include protein shakes. Please take Lasix 40 mg twice a day; in the morning at 7 and in the afternoon around 2:00. Follow-up with your primary care doctor as scheduled; you will need blood work weekly for 3 weeks. You will also need follow-up with nephrology in 2 to 4 weeks. Please follow-up with oncology as we have discussed to further evaluate the findings in the CT scan done during the hospitalization. Pending Studies at Discharge: No Stand-Alone Forms: [facility], Smoking Cessation Medications and DC Order Prescriptions: New furosemide [Lasix] 40 mg tablet 40 mg PO BID Qty: 60 0RF Continued carvedilol 12.5 mg tablet 37.5 mg PO BID 30 Days Qty: 540 3RF Rx Instructions: PER EXT MED HX. TAKES 3 TABS BID. Eliquis 5 mg tablet 5 mg PO BID Rx Instructions: currently i=on hold atorvastatin [Lipitor] 10 mg tablet 10 mg PO HS cyanocobalamin (vitamin B-12) [Vitamin B-12] 500 mcg Tablet 1,000 mcg PO DAILY amlodipine [Norvasc] 5 mg Tablet 5 mg PO QAM 30 Days Qty: 30 1RF pantoprazole 40 mg tablet,delayed release (DR/EC) 40 mg PO BID docusate sodium 100 mg Capsule 100 mg PO BID bismuth subsalicylate 262 mg Tablet,Chewable 2 tab PO DIRECTED PRN (Reason: UPSET STOMACH) cholecalciferol (vitamin D3) [Vitamin D3] 25 mcg (1,000 unit) Capsule 25 mcg PO DAILY Prolia 60 mg/mL Syringe 60 mg SUBCUT DIRECTED melatonin-chamomile flower 3-500 mg-mcg Tablet 1 tab PO HS sacubitril-valsartan [Entresto] 97-103 mg tablet 1 tab PO BID Changed magnesium chloride [Mag-Delay] 64 mg Tablet,Delayed Release (Dr/Ec) 64 mg PO TID Qty: 90 0RF potassium chloride 20 mEq tablet extended release 20 meq PO TID 90 Days Qty: 180 3RF Discontinued magnesium oxide 400 mg magnesium Tablet 400 mg PO DAILY Discharge Orders: Discharge Order (Routine); Ordered 10/31/24 Ordered By: Javier Ross Admission Data Admit Date/Time: 10/20/24 19:00 Attending Provider: Javier Ross Admit Provider: Marbella Steel Primary Care Provider: Marilyn West Other Providers: [facility]; [place]; [facility] [place]; [facility],; Marbella Steel
== END 2024-10-31 13:18 | disposition home health service (06) | DRG 643 ==
LOC: ED 14:09 → SUATTDRO 19:00 → 4W 19:00 → 3N 10-27 18:05

== ENCOUNTER 2025-02-20 08:40 | Inpatient (IN) ==
--- NOTE | 2025-02-20 09:41 | Emergency Department Note ---
Impression & Plan Depression, Acute UTI (urinary tract infection), Acute dehydration, Suicidal ideation, Acute hypokalemia, Leukocytosis ED Provider Note HISTORY OF PRESENT ILLNESS: Patient is a 79-year-old female presenting for mental health evaluation. Patient reports that her "jan cat who was my best friend on nurse" 2 weeks ago. She states that she has not slept in the last 2 weeks and in the last 5 days has has not had the motivation to eat or drink anything. She lives home alone. She states that "I do not want to live anymore." She denies any plan to end her life. She states that 2 years ago when her brother she had thoughts of overdosing on medications. She states that she has not been sleeping well in the last 2 weeks and states that she only dozes off here there. States she does not sleep through the night and will doze during the day. She states that she hears voices in her apartment. Denies them telling her to do anything in particular. Denies any visual hallucinations. Patient has never been admitted for inpatient psychiatric care in the past. ROS: as above PHYSICAL EXAM: Constitutional: Patient appears in no acute distress. HENT: Head: Normocephalic and atraumatic. Eyes: EOMI, PERRL Mouth/Throat: Mucous membranes moist. Neck: Trachea midline. Neck supple. Musculoskeletal: No edema, tenderness or deformity noted. Skin: Warm and dry. No rash, erythema, pallor or cyanosis Psychiatric: Appropriate mood and affect for situation. Neurological: Alert and keenly responsive. CN II-XII grossly intact, moving all extremities equally and fully. MDM: - Vitals signs stable. - History obtained via patient. History as above. - Chronic conditions affecting care: breast cancer; HTN - Differential diagnoses include, but are not limited to: Depression; alcohol intoxication; drug intoxication; medication side effect; UTI; CVA; pneumonia - External medical records reviewed. - EKG image interpreted by myself showed normal sinus rhythm. Rate 82 bpm. QT 376. No acute ischemic changes. - Laboratory workup interpreted by myself showed leukocytosis (WBC 15.61) with neutrophil predominance; hyponatremia (Na 146); hypokalemia (K 3.1); elevated anion gap (12); normal TSH; negative alcohol/acetaminophen/salicylate levels - COVID negative - CT head wo contrast negative for acute pathology - UA showed evidence of possible infection. Given 2g IV rocephin - Given 1L NS in ER for hydration - CXR image reviewed interpreted myself is made for pneumonia, per my interpretation. - Patient given 1 mg PO ativan in ER for agitation - Routine psychiatry consult ordered. - Discussion was had with case management social worker about patient's case and need for admission - Hospitalist consulted for admission - Patient admitted to [facility] service for further evaluation and management. ASSESSMENT AND PLAN: Diagnosis: Depression; suicidal ideation; hypokalemia; acute dehydration; acute UTI; leukocytosis Plan: Admit Past Med/Surg History Problem List (Updated 02/20/25 @ 12:29 by Lynette Charles PA-C) Hypernatremia Adult failure to thrive syndrome Acute dehydration Acute kidney injury (nontraumatic) Hypotension (Acute) Falling (Acute) Hypokalemia (Acute) Dehydration (Acute) Acute hyponatremia (Acute) Anemia (Acute) Weakness (Acute) Acute UTI (urinary tract infection) (Acute) Elevated troponin (Acute) Respiratory syncytial virus (RSV) (Acute) Weakness UTI (urinary tract infection) Acute metabolic encephalopathy Confusion (Acute) Hypokalemia (Acute) Hypomagnesemia (Acute) Dehydration (Acute) Fatigue (Acute) Anticoagulant long-term use Congestive heart failure Chronic pulmonary embolism Electrolyte and fluid disorder Acute hypoxemic respiratory failure Acute CHF (congestive heart failure) (Acute) Elevated troponin (Acute) COVID-19 (Acute) Constipation Allergic drug reaction (Acute) Anaphylaxis (Acute) Acute bronchospasm (Acute) Acute hyponatremia (Acute) Mitral regurgitation Nonischemic cardiomyopathy Encounter for pre-operative examination Pelvic mass DVT prophylaxis Hyponatremia Anemia Ovarian cancer Hypertension Medical History Arthritis Limb alert care status RUE History of uterine fibroid Degenerative disc disease Spinal stenosis Chronic back pain Osteoarthritis Osteoporosis History of kidney stones History of gastric ulcer History of breast cancer Rt - 17 years ago - S/p Rt mastectomy, chemo + radiation, Lt - 2018 - s/p lumpectomy x 2, raidation 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 followed with physical therapy. History of depression Valvular heart disease follows with [facility] [place] Cardiology Dr Shabazz; moderate MR, mild global hypokinesis LV, RVSP 40-50mmHg Malignant neoplasm of central portion of left breast in female, estrogen receptor negative 2016 Surgical History Port-A-Cath in place (06/09/21) Insertion of Access Port with Fluoroscopy(Left) - Amador Archibald DO, FACS 06/09/2021 H/O: hysterectomy H/O knee surgery left knee reconstruction Status post correction of deviated nasal septum History of tooth extraction History of foot surgery BL History of lumpectomy of left breast x 2 2019 Hx of right mastectomy with lymph node removal 1991 History of breast biopsy Family History Father Esophageal cancer Social History Smoking Status: Never smoker Tobacco Type: Cigarettes Second Hand Exposure: No; Do You Dip or Chew Tobacco: No; Hx Alcohol Use: Yes Alcohol type: beer Hx Substance Use: No Preferred Language: Vietnamese Communication Ability: Effective [employer] Specialist Required: No Beliefs That Will Affect Care: Advent Advent Beliefs: taoism Current Living Situation: Alone Current Living Situation Comment: Lives independently [facility] Feels Safe at Home: Yes Assistive Devices: Cane Allergies Allergies Allergy/AdvReac Type Severity Reaction Status Date / Time diphenhydramine Allergy Severe Difficulty Verified 10/20/24 17:47 [From Benadryl] Breathing doxorubicin Allergy Severe CHEMO Verified 10/20/24 17:47 DRUG--UNKNOWN house dust Allergy Intermediate CONGESTION-ODORS, Verified 10/20/24 17:47 FUMES, DUST Home Meds Home Medications Medication Instructions Recorded Confirmed atorvastatin 10 mg tablet (Lipitor) 10 mg PO HS 09/22/19 10/20/24 cyanocobalamin (vitamin B-12) 500 1,000 mcg PO DAILY 07/23/21 10/20/24 mcg tablet (Vitamin B-12) apixaban 5 mg tablet (Eliquis) 5 mg PO BID 12/05/21 10/20/24 bismuth subsalicylate 262 mg 2 tab PO DIRECTED PRN UPSET 10/20/24 10/20/24 chewable tablet STOMACH cholecalciferol (vitamin D3) 25 25 mcg PO DAILY 10/20/24 10/20/24 mcg (1,000 unit) capsule (Vitamin D3) denosumab 60 mg/mL subcutaneous 60 mg subcut DIRECTED 10/20/24 10/20/24 syringe (Prolia) docusate sodium 100 mg capsule 100 mg PO BID 10/20/24 10/20/24 melatonin 3 mg-chamomile flower 1 tab PO HS 10/20/24 10/20/24 500 mcg tablet pantoprazole 40 mg tablet,delayed 40 mg PO BID 10/20/24 10/20/24 release Previous Rx's Medication Instructions Recorded amlodipine 5 mg tablet (Norvasc) 5 mg PO QAM 30 days #30 tabs 03/16/23 carvedilol 12.5 mg tablet 37.5 mg (3 x 12.5 mg) PO BID 30 03/23/24 days #540 tabs furosemide 40 mg tablet (Lasix) 40 mg PO BID #60 tabs 10/31/24 magnesium chloride 64 mg 64 mg PO TID #90 tabs 10/31/24 (magnesium chloride) tablet,delayed release (Mag-Delay) potassium chloride 20 mEq 20 meq PO TID 90 days #180 tabs 10/31/24 tablet,extended release sacubitril 97 mg-valsartan 103 mg 1 tab PO BID #180 tabs 11/14/24 tablet (Entresto) Results & Data (ED) Vital Signs Vital Signs - 24 hr 02/20/25 08:58 02/20/25 09:00 Temperature 36.8 C 36.8 C Temperature Source Oral Oral Pulse Rate 70 Pulse Rate [Apical] 70 Respiratory Rate 16 16 Blood Pressure 114/67 Blood Pressure [Left Arm] 114/67 Blood Pressure Mean 82 Blood Pressure Mean [Left Arm] 82 Pulse Oximetry 96 96 Oxygen Delivery Method Room Air Room Air Sepsis Recent Fever Within 48 Hours No Sepsis New/Unexplained Change in Mental Status N/A Sepsis Action Taken by Nursing No Action Required Laboratory Data 02/20/25 09:31 02/20/25 09:31 Lab Results 02/20/25 02/20/25 02/20/25 Range/Units 09:31 09:35 11:31 WBC 15.61 H (4.8-10.8) K/ul RBC 3.09 L (4.20-5.40) M/uL Hgb 9.1 L (12.0-16.0) g/dL Hct 27.8 L (37.0-47.0) % MCV 90.0 (80.0-100.0) fL MCH 29.4 (25.0-34.0) pg MCHC 32.7 (32.0-36.0) g/dL RDW Std Deviation 47.5 H (36.4-46.3) fL RDW Coeff of Cain 14.6 H (11.5-14.5) % Plt Count 363 (130-400) K/uL MPV 10.0 (9.4-12.4) fL Immature Gran % (Auto) 0.8 % Neut % (Auto) 83.9 % Lymph % (Auto) 4.9 % Burt % (Auto) 9.4 % Eos % (Auto) 0.6 % Baso % (Auto) 0.4 % Neut # (Auto) 13.09 H (1.40-6.50) K/uL Lymph # (Auto) 0.77 L (1.20-3.40) K/uL Burt # (Auto) 1.47 H (0.11-0.59) K/uL Eos # (Auto) 0.09 (0.00-0.50) K/uL Baso # (Auto) 0.06 (0.00-0.20) K/uL Immature Gran # (Auto) 0.13 (0.01-0.20) K/uL Sodium 146 H (136-145) mmol/L Potassium 3.1 L (3.5-5.1) mmol/L Chloride 110 H (98-107) mmol/L Carbon Dioxide 24 (21-32) mmol/L Anion Gap 12 H (3-11) BUN 58 H (6-23) mg/dl Creatinine 0.97 (0.6-1.2) mg/dl Est Cr Clr Drug Dosing 27.6 ml/min eGFR 60.18 BUN/Creatinine Ratio 59.8 H (10-20) Glucose 80 (70-99(Fasting)) mg/dl Calcium 9.0 (8.6-10.3) mg/dl Total Bilirubin 0.4 (0.2-1.0) mg/dl AST 57 H (13-39) U/L ALT 28 (7-52) U/L Alkaline Phosphatase 559 H (34-104) U/L Total Protein 6.4 (6.0-8.3) gm/dl Albumin 2.9 L (3.4-5.0) gm/dl Globulin 3.5 (2.5-4.0) gm/dl Albumin/Globulin Ratio 0.8 L (0.9-2) TSH 3.660 (0.300-4.500) uIu/ml Urine Color Yellow Urine Appearance Cloudy A (Clear) Urine pH 5.5 (4.5-7.5) Ur Specific [place] 1.018 (1.000-1.030) Urine Protein 3+ H (Negative) Urine Glucose (UA) Negative (Negative) Urine Ketones Trace H (Negative) Urine Blood 2+ H (Negative) Urine Nitrite Negative (Negative) Urine Bilirubin Negative (Negative) Urine Urobilinogen Negative (Negative) Ur Leukocyte Esterase 2+ H (Negative) Urine WBC (Auto) >50 H (0-5) /hpf Urine RBC (Auto) 6-10 H (0-2) /hpf U Hyaline Cast (Auto) >20 H (0-2) /lpf U Epithel Cells (Auto) 3-5 H (0-2) /hpf Urine Bacteria (Auto) None Seen (None Seen) Hyaline Casts Present A (None Presnt) /lpf Granular Casts Present A (None Prsent) /lpf Urine Comment Salicylates < 3.0 L (3.0-30) mg/dl Acetaminophen < 3 L (10-30) ug/ml Ethyl Alcohol mg/dL < 10.0 (<10.0) mg/dl SARS-CoV-2, RNA, NAAT NEGATIVE (NEGATIVE) Administered Medications Discontinued Medications Lorazepam (Lorazepam 1 Mg Tab) 1 mg PO NOW STA Stop: 02/20/25 09:39 Last Admin: 02/20/25 11:32 Dose: 1 mg Documented By: [facility] [place] Imaging Data Radiologist's Impression: Chest X-Ray 02/20/25 09:26 XR chest 1V portable HISTORY: 79 years-old Female psych clearance acutely altered mental status COMPARISON: Chest radiograph is 10/24/2024, 10/20/2024, PET CT 12/01/2021, chest CT 04/01/2022 TECHNIQUE: AP view of the chest FINDINGS: Cardiomediastinal and hilar silhouettes are unchanged. Stable positioning of the left IJ Fozsud-p-[id number] catheter. Atherosclerosis of the aorta. Chronic pleural- parenchymal scarring of the right lung apex. Asymmetric right hilar prominence again noted along with emphysema and mild chronic interstitial coarsening. Scattered calcified pulmonary granulomata again noted. Nodular focus within the basal right lower lobe. Surgical clips of the right axilla. IMPRESSION: 1. Emphysema with chronic interstitial coarsening. 2. Chronic pleural-parenchymal scarring of right lung apex. 3. Nodular focus of the basal right lower lobe, also seen on the 10/20/2024 CT thoracic spine. Attention at follow-up recommended in order to exclude pleural metastasis. ACT 112: Negative or not required by law. The above report was generated using voice recognition software. It may contain grammatical, syntax or spelling errors. Electronically signed by: Zeferino Solano M.D. 02/20/2025 10:[address] 02/20/25 09:26 CT head/brain wo con CLINICAL HISTORY: 79 years-old Female with psych clearance. Acutely altered mental status TECHNIQUE: Multiple axial CT images of the head were obtained without contrast. A dose lowering technique was utilized adhering to the principles of ALARA. CT DOSE: 625.8 mGy.cm COMPARISON: 10/20/2024 FINDINGS: No acute intracranial hemorrhage, midline shift, intracranial mass, hydrocephalus, territorial ischemia or abnormal extra-axial collection. Involutional changes with white matter hypodensities suggestive of chronic microvascular scheme disease. The calvarium is intact. Prior bilateral lens repair. Paranasal sinus disease includes near complete opacification of the right maxillary sinus with mild mucoperiosteal thickening of the left maxillary sinus. IMPRESSION: No acute intracranial abnormality. ACT 112: Negative or not required by law. The above report was generated using voice recognition software. It may contain grammatical, syntax or spelling errors. Electronically signed by: Zeferino Solano M.D. 02/20/2025 11:37 AM Discharge Plan Visit Data Chief Complaint: Mental Health Evaluation Stated Complaint: mhe ED Provider: Edwige Muir Discharge Problem: Depression, Acute UTI (urinary tract infection), Acute dehydration, Suicidal ideation, Acute hypokalemia, Leukocytosis Patient Disposition: Admitted As Inpatient Condition: Fair Forms Stand Alone Forms: [facility], Suicide Prevention Resources Prescriptions Prescriptions: No Action carvedilol 12.5 mg tablet 37.5 mg PO BID 30 Days Qty: 540 3RF Rx Instructions: PER EXT MED HX. TAKES 3 TABS BID. sacubitril-valsartan [Entresto] 97-103 mg tablet 1 tab PO BID Qty: 180 3RF Eliquis 5 mg tablet 5 mg PO BID Rx Instructions: currently i=on hold atorvastatin [Lipitor] 10 mg tablet 10 mg PO HS cyanocobalamin (vitamin B-12) [Vitamin B-12] 500 mcg Tablet 1,000 mcg PO DAILY amlodipine [Norvasc] 5 mg Tablet 5 mg PO QAM 30 Days Qty: 30 1RF pantoprazole 40 mg tablet,delayed release (DR/EC) 40 mg PO BID docusate sodium 100 mg Capsule 100 mg PO BID bismuth subsalicylate 262 mg Tablet,Chewable 2 tab PO DIRECTED PRN (Reason: UPSET STOMACH) cholecalciferol (vitamin D3) [Vitamin D3] 25 mcg (1,000 unit) Capsule 25 mcg PO DAILY Prolia 60 mg/mL Syringe 60 mg SUBCUT DIRECTED melatonin-chamomile flower 3-500 mg-mcg Tablet 1 tab PO HS furosemide [Lasix] 40 mg tablet 40 mg PO BID Qty: 60 0RF potassium chloride 20 mEq tablet extended release 20 meq PO TID 90 Days Qty: 180 3RF magnesium chloride [Mag-Delay] 64 mg Tablet,Delayed Release (Dr/Ec) 64 mg PO TID Qty: 90 0RF Referrals Referrals: Marilyn West DO [Primary Care Provider] -
[2025-02-20 09:58] LABS: Hematocrit (blood only) 27.8 % (37.0-47.0); Hemoglobin 9.1 g/dL (12.0-16.0); Immature Granulocytes # (auto) 0.13 K/uL (0.01-0.20); Immature Granulocytes % (auto) 0.8 %; Mean Corpuscular Hemoglobin 29.4 pg (25.0-34.0); Mean Corpuscular Volume 90.0 fL (80.0-100.0); Platelet Count 363 K/uL (130-400); RDW Standard Deviation 47.5 fL (36.4-46.3); Red Blood Count 3.09 M/uL (4.20-5.40); White Blood Count 15.61 K/ul (4.8-10.8)
[2025-02-20 10:10] LABS: Acetaminophen < 3 ug/ml (10-30); Salicylate < 3.0 mg/dl (3.0-30)
[2025-02-20 10:17] LABS: Albumin Level 2.9 gm/dl (3.4-5.0); Anion Gap 12.0 (3-11); Bilirubin,Total 0.4 mg/dl (0.2-1.0); Calcium 9.0 mg/dl (8.6-10.3); Carbon Dioxide 24.0 mmol/L (21-32); Chloride 110.0 mmol/L (98-107); Potassium 3.1 mmol/L (3.5-5.1); Sodium 146.0 mmol/L (136-145)
[2025-02-20 10:23] LABS: Alanine Aminotransferase 28.0 U/L (7-52); Albumin Globulin Ratio 0.8 (0.9-2); Alkaline Phosphatase 559.0 U/L (34-104); Blood Urea Nitrogen 58.0 mg/dl (6-23); Creatinine Clr Calc Pharmacy 27.6 ml/min; Globulin 3.5 gm/dl (2.5-4.0); Glucose 80.0 mg/dl (70-99(Fasting)); Total Protein 6.4 gm/dl (6.0-8.3)
--- NOTE | 2025-02-20 10:26 | XRay Report ---
XR chest 1V portable HISTORY: 79 years-old Female psych clearance acutely altered mental status COMPARISON: Chest radiograph is 10/24/2024, 10/20/2024, PET CT 12/01/2021, chest CT 04/01/2022 TECHNIQUE: AP view of the chest FINDINGS: Cardiomediastinal and hilar silhouettes are unchanged. Stable positioning of the left IJ [id number] t catheter. Atherosclerosis of the aorta. Chronic pleural-parenchymal scarring of the right lung apex . Asymmetric right hilar prominence again noted along with emphysema and mild chronic interstitial co arsening. Scattered calcified pulmonary granulomata again noted. Nodular focus within the basal right lower lobe. Surgical clips of the right axilla. IMPRESSION: 1. Emphysema with chronic interstitial coarsening. 2. Chronic pleural-parenchymal scarring of right lung apex. 3. Nodular focus of the basal right lower lobe, also seen on the 10/20/2024 CT thoracic spine. Attentio n at follow-up recommended in order to exclude pleural metastasis. ACT 112: Negative or not required by law. The above report was generated using voice recognition software. It may contain grammatical, syntax o r spelling errors. Electronically signed by: Zeferino Solano M.D. 02/20/2025 10:24 AM
[2025-02-20 10:37] LABS: Thyroid Stimulating Hormone 3.66 uIu/ml (0.300-4.500)
[2025-02-20] MEDS: LORazepam 1 MG TAB PO STA (11:32)
--- NOTE | 2025-02-20 11:39 | CT Scan Report ---
CT head/brain wo con CLINICAL HISTORY: 79 years-old Female with psych clearance. Acutely altered mental status TECHNIQUE: Multiple axial CT images of the head were obtained without contrast. A dose lowering tech nique was utilized adhering to the principles of ALARA. CT DOSE: 625.8 mGy.cm COMPARISON: 10/20/2024 FINDINGS: No acute intracranial hemorrhage, midline shift, intracranial mass, hydrocephalus, territorial ischem ia or abnormal extra-axial collection. Involutional changes with white matter hypodensities suggestiv e of chronic microvascular scheme disease. The calvarium is intact. Prior bilateral lens repair. Paranasal sinus disease includes near complete opacification of the right maxillary sinus with mild mucoperiosteal thickening of the left maxillary sinus. IMPRESSION: No acute intracranial abnormality. ACT 112: Negative or not required by law. The above report was generated using voice recognition software. It may contain grammatical, syntax o r spelling errors. Electronically signed by: Zeferino Solano M.D. 02/20/2025 11:37 AM
[2025-02-20 11:53] LABS: Appearance Urine Cloudy (Clear); Bacteria Urine Automated None Seen (None Seen); Cast Urine Automated >20 /lpf (0-2); Glucose Urine UA Negative (Negative); WBC Urine Automated >50 /hpf (0-5)
--- NOTE | 2025-02-20 12:23 | History & Physical Report ---
Date of Service February 20, 2025 Assessment & Plan (1) Acute dehydration: (2) Hypernatremia: (3) Adult failure to thrive syndrome: (4) Hypokalemia: Plan Patient is a 79y/o F with PMHx significant for malignant neoplasm of ovary, prediabetes, HLD, pulmonary hypertension, emphysema, chronic systolic heart failure, CAD, HTN, nonrheumatic mitral valve regurgitation, vitamin D deficiency, GERD, malignant neoplasm of large intestine and rectum, senile osteoporosis, malignant neoplasm of peritoneum, chronic PE anticoagulated on Eliquis, malignant neoplasm of intrapelvic lymph nodes, adjustment disorder with depressed mood, chronic depression with insomnia and hyponatremia/SIADH who presented to the ED via EMS due to inability to care for self. #Acute dehydration #Hypernatremia #Adult failure to thrive 2/2 severe depression and grief rx, re: following of beloved catOrestes, last week #History of chronic depression with insomnia Minimal po intake since last Wednesday following the of her cat Trace ketones, 3+ protein, hyaline casts seen on UA c/w dehydration Head CT unremarkable Na 146 Urine tox screen pending EtOH neg Negligible salicylates, Tylenol levels D5w and 1/2 NSS onboard Monitor Na level Appreciate psych consult Recommend avoidance of SSRIs given h/o SIADH Hold Remeron for now until seen by psych #Abnormal UA UA with with >50 WBC, 2+ LE WBC 15.6k >> could be 2/2 dehydration >> check procal Pt w/o any urinary complaints, no reported fevers Doubt UTI given absence of sx, remains afebrile Did get dose of IV Rocephin in ED however will monitor off further ABX for now Follow urine cx #Hypokalemia Repletion ordered via IV Check mag Continue to monitor and replete PRN Resume home mag supplementation #Nodular focus of the basal RLL Seen on CXR today Also was seen on prior CT thoracic spine from October 2024 Unclear etiology Recommend f/u to exclude pleural metastasis #Abnormal thoracic and lumbar CT imaging noted last admission in October 2024 Findings c/f bone lesions, hepatic lesions, pulmonary lesion (as above) Needs f/u with heme/onc #HTN BP borderline low Hold Norvasc, Entresto for now #Recent medication noncompliance Has not taken meds for past week 2/2 depression, grief rx Appears pt has been refilling her meds appropriately per ext med record #Chronic PE Resume Eliquis #Chronic systolic CHF #Moderate to severe mitral regurgitation #Nonischemic cardiomyopathy Has f/w [facility] cards in the past Most recent TTE, 10/22/24: EF 45-50%, mild concentric LVH, mild global hypokinesis of the LV, grade II DD, mod-severe MR (grossly unchanged from TTE done 07/2023) Hold Lasix for now Resume Coreg #HLD Resume statin #GERD Resume PPI #History of bilateral breast cancer S/p surgery and chemoradiation #History of metastatic ovarian cancer S/p debulking surgery and chemoradiation DVT Prophylaxis: Eliquis Code Status: FULL CODE Disposition: Admit to med/telemetry Patient seen in collaboration with Dr. Arriaza. Please see addendum. I spent a total of 68 minutes coordinating, documenting, and providing care for this patient excluding time spent in the performance of separately billed services or time spent by another provider/QHP. This included personally reviewing all current laboratories and imaging studies, medical reconciliation, outpatient chart review and discussion with specialists. History of Present Illness Chief Complaint: Depression, poor po intake Primary Care Provider: Marilyn West DO Patient is a 79y/o F with PMHx significant for malignant neoplasm of ovary, prediabetes, HLD, pulmonary hypertension, chronic systolic heart failure, CAD, HTN, nonrheumatic mitral valve regurgitation, vitamin D deficiency, GERD, malignant neoplasm of large intestine and rectum, senile osteoporosis, malignant neoplasm of peritoneum, chronic PE anticoagulated on Eliquis, malignant neoplasm of intrapelvic lymph nodes, adjustment disorder with depressed mood, chronic depression with insomnia and hyponatremia/SIADH who presented to the ED via EMS due to inability to care for self. History obtained from the patient, discussion with ED provider and associated chart review. Admits to significant depression following the of her beloved cat, Orestes, last Wednesday. Has not eaten or drank much of anything since her cat's passing. States "I don't feel like being here anymore." On further questioning, however, denies any current suicidal ideations or thoughts of hurting herself. Has been urinating and passing bowels okay. Denies any dysuria or hematuria. No reported fevers. Lives in an apartment building in [facility]. Admits to not taking any of her medications for the past week. Has chronic pelvic and BLE pain after sustaining a fall several years ago, feels unchanged from baseline. Denies any recent falls. Has two close neighbors in her apartment complex that assist her with getting groceries, running errands. Not currently taking any antidepressants. Has a history of depression. Allergies Allergy/AdvReac Type Severity Reaction Status Date / Time diphenhydramine Allergy Severe Difficulty Verified 10/20/24 17:47 [From Benadryl] Breathing doxorubicin Allergy Severe CHEMO Verified 10/20/24 17:47 DRUG--UNKNOWN house dust Allergy Intermediate CONGESTION-ODORS, Verified 10/20/24 17:47 FUMES, DUST Home Medications Medication Instructions Recorded Confirmed Type atorvastatin 10 mg tablet (Lipitor) 10 mg PO HS 09/22/19 02/20/25 History cyanocobalamin (vitamin B-12) 500 1,000 mcg PO DAILY 07/23/21 02/20/25 History mcg tablet (Vitamin B-12) apixaban 5 mg tablet (Eliquis) 5 mg PO BID 12/05/21 02/20/25 History amlodipine 5 mg tablet (Norvasc) 5 mg PO QAM 30 days #30 tabs 03/16/23 02/20/25 Rx carvedilol 12.5 mg tablet 37.5 mg (3 x 12.5 mg) PO BID 30 03/23/24 02/20/25 Rx days #540 tabs cholecalciferol (vitamin D3) 25 25 mcg PO DAILY 10/20/24 02/20/25 History mcg (1,000 unit) capsule (Vitamin D3) denosumab 60 mg/mL subcutaneous 60 mg subcut DIRECTED 10/20/24 02/20/25 History syringe (Prolia) docusate sodium 100 mg capsule 100 mg PO BID 10/20/24 02/20/25 History melatonin 3 mg-chamomile flower 1 tab PO HS 10/20/24 02/20/25 History 500 mcg tablet pantoprazole 40 mg tablet,delayed 40 mg PO BID 10/20/24 02/20/25 History release furosemide 40 mg tablet (Lasix) 40 mg PO BID #60 tabs 10/31/24 02/20/25 Rx magnesium chloride 64 mg 64 mg PO TID #90 tabs 10/31/24 02/20/25 Rx (magnesium chloride) tablet,delayed release (Mag-Delay) potassium chloride 20 mEq 20 meq PO TID 90 days #180 tabs 10/31/24 02/20/25 Rx tablet,extended release sacubitril 97 mg-valsartan 103 mg 1 tab PO BID #180 tabs 11/14/24 02/20/25 Rx tablet (Entresto) mirtazapine 15 mg tablet 15 mg PO HS 02/20/25 02/20/25 History Past Med/Surg History Problem List Hypernatremia Adult failure to thrive syndrome Acute dehydration Acute kidney injury (nontraumatic) Hypotension (Acute) Falling (Acute) Hypokalemia (Acute) Dehydration (Acute) Acute hyponatremia (Acute) Anemia (Acute) Weakness (Acute) Acute UTI (urinary tract infection) (Acute) Elevated troponin (Acute) Respiratory syncytial virus (RSV) (Acute) Weakness UTI (urinary tract infection) Acute metabolic encephalopathy Confusion (Acute) Hypokalemia (Acute) Hypomagnesemia (Acute) Dehydration (Acute) Fatigue (Acute) Anticoagulant long-term use Congestive heart failure Chronic pulmonary embolism Electrolyte and fluid disorder Acute hypoxemic respiratory failure Acute CHF (congestive heart failure) (Acute) Elevated troponin (Acute) COVID-19 (Acute) Constipation Allergic drug reaction (Acute) Anaphylaxis (Acute) Acute bronchospasm (Acute) Acute hyponatremia (Acute) Mitral regurgitation Nonischemic cardiomyopathy Encounter for pre-operative examination Pelvic mass DVT prophylaxis Hyponatremia Anemia Ovarian cancer Hypertension Medical History Arthritis Limb alert care status RUE History of uterine fibroid Degenerative disc disease Spinal stenosis Chronic back pain Osteoarthritis Osteoporosis History of kidney stones History of gastric ulcer History of breast cancer Rt - 17 years ago - S/p Rt mastectomy, chemo + radiation, Lt - 2018 - s/p lumpectomy x 2, raidation 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 followed with physical therapy. History of depression Valvular heart disease follows with [facility] Cardiology Dr Shabazz; moderate MR, mild global hypokinesis LV, RVSP 40-50mmHg Malignant neoplasm of central portion of left breast in female, estrogen receptor negative 2016 Surgical History Port-A-Cath in place (06/09/21) Insertion of Access Port with Fluoroscopy(Left) - Amador Archibald DO, FACS 06/09/2021 H/O: hysterectomy H/O knee surgery left knee reconstruction Status post correction of deviated nasal septum History of tooth extraction History of foot surgery BL History of lumpectomy of left breast x 2 2019 Hx of right mastectomy with lymph node removal 1991 History of breast biopsy Family History Father Esophageal cancer Social History Smoking Status: Never smoker Tobacco Type: Cigarettes Second Hand Exposure: No; Do You Dip or Chew Tobacco: No; Hx Alcohol Use: Yes Alcohol type: beer Hx Substance Use: No Preferred Language: Welsh Communication Ability: Effective Web Page Developer Required: No Beliefs That Will Affect Care: Gnosticist Gnosticist Beliefs: buddhism Current Living Situation: Alone Current Living Situation Comment: [facility] Feels Safe at Home: Yes Assistive Devices: Cane Review of Systems Review of Systems: At least ten systems reviewed and negative, except as noted in the HPI. Physical Exam Physical Exam: General: Elderly frail F, laying down on R side in bed, A&Ox3, tearful affect HEENT: Dry mucous membranes, cracked lips Respiratory: Normal respiratory effort, CTAB, on RA Cardiovascular: RRR, no BLE edema Abdomen/GI: Active bowel sounds, soft, nontender to palpation in all quadrants Extremities/Musculoskeletal: No cyanosis or clubbing, actively moves all extremities Neurologic: No overt focal deficits, CN's II-XI not formally tested but appear grossly intact bilaterally Results & Data Results & Data Vital Signs (Past 12 Hours) Vital Signs Temp Pulse Pulse Resp BP BP Pulse Ox 02/20/25 09:00 36.8 C 70 16 114/67 96 02/20/25 08:58 36.8 C 70 16 114/67 96 O2 Del Method 02/20/25 09:00 Room Air 02/20/25 08:58 Room Air Laboratory Results Short CBC 02/20/25 Range/Units 09:31 WBC 15.61 H (4.8-10.8) K/ul Hgb 9.1 L (12.0-16.0) g/dL Hct 27.8 L (37.0-47.0) % Plt Count 363 (130-400) K/uL BMP 02/20/25 09:31 Sodium 146 H Potassium 3.1 L Chloride 110 H Carbon Dioxide 24 BUN 58 H Creatinine 0.97 Glucose 80 Calcium 9.0 Liver Function 02/20/25 Range/Units 09:31 Total Bilirubin 0.4 (0.2-1.0) mg/dl AST 57 H (13-39) U/L ALT 28 (7-52) U/L Alkaline Phosphatase 559 H (34-104) U/L Albumin 2.9 L (3.4-5.0) gm/dl Urine 02/20/25 Range/Units 11:31 Urine Color Yellow Urine Appearance Cloudy A (Clear) Urine pH 5.5 (4.5-7.5) Ur Specific [place] 1.018 (1.000-1.030) Urine Protein 3+ H (Negative) Urine Glucose (UA) Negative (Negative) Diagnostic Findings Chest X-Ray 02/20/25 09:26 XR chest 1V portable HISTORY: 79 years-old Female psych clearance acutely altered mental status COMPARISON: Chest radiograph is 10/24/2024, 10/20/2024, PET CT 12/01/2021, chest CT 04/01/2022 TECHNIQUE: AP view of the chest FINDINGS: Cardiomediastinal and hilar silhouettes are unchanged. Stable positioning of the left IJ [id number] catheter. Atherosclerosis of the aorta. Chronic pleural- parenchymal scarring of the right lung apex. Asymmetric right hilar prominence again noted along with emphysema and mild chronic interstitial coarsening. Scattered calcified pulmonary granulomata again noted. Nodular focus within the basal right lower lobe. Surgical clips of the right axilla. IMPRESSION: 1. Emphysema with chronic interstitial coarsening. 2. Chronic pleural-parenchymal scarring of right lung apex. 3. Nodular focus of the basal right lower lobe, also seen on the 10/20/2024 CT thoracic spine. Attention at follow-up recommended in order to exclude pleural metastasis. ACT 112: Negative or not required by law. The above report was generated using voice recognition software. It may contain grammatical, syntax or spelling errors. Electronically signed by: Zeferino Solano M.D. 02/20/2025 10:[address] 02/20/25 09:26 CT head/brain wo con CLINICAL HISTORY: 79 years-old Female with psych clearance. Acutely altered mental status TECHNIQUE: Multiple axial CT images of the head were obtained without contrast. A dose lowering technique was utilized adhering to the principles of ALARA. CT DOSE: 625.8 mGy.cm COMPARISON: 10/20/2024 FINDINGS: No acute intracranial hemorrhage, midline shift, intracranial mass, hydrocephalus, territorial ischemia or abnormal extra-axial collection. Involutional changes with white matter hypodensities suggestive of chronic microvascular scheme disease. The calvarium is intact. Prior bilateral lens repair. Paranasal sinus disease includes near complete opacification of the right maxillary sinus with mild mucoperiosteal thickening of the left maxillary sinus. IMPRESSION: No acute intracranial abnormality. ACT 112: Negative or not required by law. The above report was generated using voice recognition software. It may contain grammatical, syntax or spelling errors. Electronically signed by: Zeferino Solano M.D. 02/20/2025 11:37 AM Medications Administered Discontinued Medications Lorazepam (Lorazepam 1 Mg Tab) 1 mg PO NOW STA Stop: 02/20/25 09:39 Last Admin: 02/20/25 11:32 Dose: 1 mg Documented By: [facility] Supervising Physician Co-Signing Physician Notes I have seen and discussed the case with the collaborating advanced practitioner. I agree with the above H&P. I have reviewed and confirmed the patients medical history, the findings on physical examination, and the patients diagnosis and treatment plan with Araceli BURCIAGA and agree with the information documented. Evaluated at bedside. Lives in a senior building. Feels extremely "hopeless" after loss of her cat. She states its hard for her to sleep. She does not want another pet. She does not wish to "not wake up" and denies any suicidal ideation, but she does want to just sleep and wake up and "feel better"--she recalls driving, going to [employer], and having lunch with friends. She wishes to do those things again. She has not eaten or had much to drink in days she feels. She is open to psychiatry evaluation. Exam notable for a frail, elderly woman, chapped lips dry mucous membranes, AOx2-3 on my exam. CN II-XII with no focal deficit. #Acute hypernatremia #Dehydration #History of SIADH notably patient's sodium baseline around low 130s, 146 on admission, correlates with BUN/cr 59.8 encouraged po intake IV d5w for now repeat BMP this afternoon #Acute metabolic encephalopathy #MDD likely 2/2 dehydration above, no urinary symtpoms will hold further abx psych consult for MDD treat dehydration as above rest of plan as above I spent a total of 20 minutes coordinating, documenting, and providing care for this patient excluding time spent in the performance of separately billed services. All of the aforementioned completed outside of collaborating with the assigned advanced practitioner for a full treatment plan. I have reviewed the advanced practitioner's documentation, and I agree with, and take responsibility for the plan of care
[2025-02-20 13:22] LABS: Magnesium 1.6 mg/dl (1.7-2.4)
[2025-02-20 13:41] LABS: Creatine Kinase 34.0 U/L (26-192)
[2025-02-20] MEDS: cefTRIAXone SODIUM 2,000 MG/50 ML BAG IV STA (14:12)
[2025-02-20] MEDS: D5W AND 1/2NSS 1,000 ML IV SCH (14:17)
[2025-02-20] MEDS: POTASSIUM CHLORIDE / WTR 10 MEQ/100 ML PLCT IV SCH (14:18)
[2025-02-20] MEDS: SODIUM CHLORIDE 0.9% 1,000 ML IV ONE (14:20)
[2025-02-20 14:27] LABS: Amphetamines+Metham, Urine Neg (Neg); MDMA (Ecstacy), Urine Neg (Neg); Marijuana, Urine Neg (Neg)
[2025-02-20] MEDS: APIXABAN 5 MG TABLET PO SCH (14:41)
[2025-02-20] MEDS ORDERED: MAGNESIUM HYDROXIDE SUSP 30 ML UDC PO PRN (15:34)
[2025-02-20] MEDS ORDERED: ONDANSETRON INJ 2 MG/ML 2 ML VIAL IV PRN (15:34)
[2025-02-20] MEDS ORDERED: POLYETHYLENE (MIRALAX) 17 GM PACK PO PRN (15:34)
[2025-02-20] MEDS: MAGNESIUM SULFATE / D5W 1 GM/100 ML BAG IV ONE (16:57)
[2025-02-20 16:59] LABS: Anion Gap 13.0 (3-11); Calcium 8.6 mg/dl (8.6-10.3); Carbon Dioxide 25.0 mmol/L (21-32); Chloride 108.0 mmol/L (98-107); Potassium 3.4 mmol/L (3.5-5.1); Sodium 146.0 mmol/L (136-145)
[2025-02-20 17:05] LABS: Blood Urea Nitrogen 63.0 mg/dl (6-23); Creatinine Clr Calc Pharmacy 28.1 ml/min; Glucose 88.0 mg/dl (70-99(Fasting))
[2025-02-20] MEDS: ATORVASTATIN 10 MG TAB PO SCH (20:12)
[2025-02-20] MEDS: MAGNESIUM CHLORIDE W/CALCIUM 64MG DELAYED REL TAB PO SCH (20:13)
[2025-02-20] MEDS: DOCUSATE SODIUM 100 MG CAP PO SCH (20:13)
[2025-02-20] MEDS: MELATONIN 3 MG TAB PO PRN (20:17)
[2025-02-21] MEDS: CHOLECALCIFEROL 25 MCG (1000 UNITS) TAB PO SCH (09:55)
[2025-02-21] MEDS: CYANOCOBALAMIN (B-12) 500 MCG TABLET PO SCH (09:55)
[2025-02-21 10:50] LABS: Hematocrit (blood only) 29.3 % (37.0-47.0); Hemoglobin 9.4 g/dL (12.0-16.0); Mean Corpuscular Hemoglobin 29.1 pg (25.0-34.0); Mean Corpuscular Volume 90.7 fL (80.0-100.0); Platelet Count 350 K/uL (130-400); RDW Standard Deviation 47.8 fL (36.4-46.3); Red Blood Count 3.23 M/uL (4.20-5.40); White Blood Count 11.26 K/ul (4.8-10.8)
[2025-02-21 11:05] LABS: Anion Gap 11.0 (3-11); Blood Urea Nitrogen 57.0 mg/dl (6-23); Calcium 8.6 mg/dl (8.6-10.3); Carbon Dioxide 21.0 mmol/L (21-32); Chloride 108.0 mmol/L (98-107); Creatinine Clr Calc Pharmacy 30.0 ml/min; Glucose 142.0 mg/dl (70-99(Fasting)); Magnesium 1.9 mg/dl (1.7-2.4); Potassium 3.3 mmol/L (3.5-5.1); Sodium 140.0 mmol/L (136-145)
--- NOTE | 2025-02-21 12:32 | Psychiatric Consultation ---
Date of Consultation February 21, 2025 Impression / Recommendations Impression Diagnostically consistent with unspecified depressive disorder likely adjustment disorder with depressed mood as well as complicated bereavement as well as possible cognitive impairment with hallucinations vs alcohol-induced psychotic symptoms. May also be a component of alcohol-withdrawal mood changes as she reports abruptly stopping her nightly 2.5 beers after her cat last week. She adamantly denies that her poor po intake was an attempt to but rather felt nauseous after the of her cat and did not want to eat as it made her feel ill. Acute risk is low given denial of active SI, feels safe in the hospital, feels able to alert nurses if she needs more support, future-oriented, strong deterrents to suicide and no history of prior attempts. Chronic risk is moderate given history of depression, hallucinations, access to a gun, and multiple losses over the years but also with protective factors including: good social support, strong mosque beliefs, sense of responsibility to family and social supports, and willingness to engage with treatment. Counseled on ways to reduce acute and chronic risk including engaging with and utilizing supports, taking medication, and potential for alternative living options with increased support. If hallucinations become more evident or appear to interfere with her functioning or cause distress then could explore option for antipsychotic but would avoid at this point given chronic intermittent nature, possible contribution from alcohol use and significant medical co-morbidities for which side effects could increase risk of future heart attack or stroke. Overall, I spent a total of 80 minutes with this case including review of chart records, review of labwork, review of EKG QTc, direct evaluation of the patient at bedside, counseling the patient, discussion of the patient with the Nurse and with the hospitalist provider, discussion with the psychiatric liason during clinical rounds and documentation in the electronic health record. (1) Complicated bereavement: (2) Adjustment disorder with depressed mood: (3) Hallucinations: Plan -Doesn't require 1-on-1 or suicide precautions -Start sertraline 25mg daily, monitor sodium given history of SIADH -Consider use of mirtazapine 7.5mg HS to help with sleep/nausea/appetite stimulation -Watch for signs of alcohol withdrawal given abrupt discontinuation last week -She declines JOE for any supports at this time for further collateral and discussion of access to gun, psych liasons will continue to explore this as she reported potentially willingness to consider this tomorrow Psych History Identifying Data Huma Marquise is a 79y/o F with PMHx significant for malignant neoplasm of ovary, prediabetes, HLD, pulmonary hypertension, emphysema, chronic systolic heart failure, CAD, HTN, nonrheumatic mitral valve regurgitation, vitamin D deficiency, GERD, malignant neoplasm of large intestine and rectum, senile osteoporosis, malignant neoplasm of peritoneum, chronic PE anticoagulated on Eliquis, malignant neoplasm of intrapelvic lymph nodes, adjustment disorder with depressed mood, chronic depression with insomnia and hyponatremia/SIADH who presented to the ED via EMS due to inability to care for self. Psychiatry consulted for depression, self-harm risk assessment. Chief Complaint "I want my dessert now". History of Present Illness Huma, who goes by Elise, presented to the hospital for failure to thrive and poor p.o. intake following her cat's on 02/12/2025. During her admission she reported depression and that she did not feel like being alive anymore but denied any thoughts of suicide or self-harm. She reported not taking her medications over the past week due to her depression and grief. In meeting her today she is fully oriented though does have some perseveration (response to the previous question asked i.e. tells me the city after I have moved on to asking about the month and then tells me the month when I have moved onto asking about the year). She reports that "oh yeah" she feels she is depressed due to her cats last week. She describes having a similar level of depression a year and a half ago after her brother, who she reports was her best friend, but she feels that "I had more in my life then to help me feel better I can drive". She was also worried that a close friend had but states she was relieved to hear the friend had a stroke and is still alive. She went about 4 days without eating which she denies was an attempt to starve herself or to but rather "the thought of food made me sick" and that "I did not want to feel sick so I did not eat". She also abruptly stopped drinking beer, reporting that typically she consumes 2-1/2 beers over the evening hours with dinner following her cat's . She adamantly denies any current thoughts of suicide but does report that if she were to in her sleep she would be ready noting "I look forward to being with my family in [facility], my brother, my parents and my cats". Speaks to her mosque beliefs and that she believes she will get to see her cats again in [facility]. She does feel that her mood continues to be depressed and that "about the same of not caring if I get up again" in terms of feeling weak and not having much motivation to move around. However she states her appetite is improving and requests that her dessert be brought of ice cream and pudding. She reports reasons for living including "the people I do have that I love" including 2 of her daughters who were adopted but whom she remains in contact with. She reports a history of mirtazapine in the past but stopped this because she found Tylenol PM just as effective for sleep. She reports approximately a 10- year history of hearing voices in the wall stating "they do not identify themselves but they talk about the devil" she states that typically she "just laughs and tries to go to sleep" when she hears them. The voices are typically louder at night. She denies any distress from these. She also endorses anxiety which she reports is lifelong but feels she can manage. She reports a history of thinking about suicide about 5 to 6 years ago of overdosing on pills but no prior suicide attempts. She reports access to a gun at home that she purchased 20 years ago when she lived alone however she states she has no bullets "never learned how to fire it". She is not interested in removing this from her home. Family history notable for her brother having depression and responding well to Zoloft. Allergies Allergy/AdvReac Type Severity Reaction Status Date / Time diphenhydramine Allergy Severe Difficulty Verified 10/20/24 17:47 [From Benadryl] Breathing doxorubicin Allergy Severe CHEMO Verified 10/20/24 17:47 DRUG--UNKNOWN house dust Allergy Intermediate CONGESTION-ODORS, Verified 10/20/24 17:47 FUMES, DUST Home Medications Medication Instructions Recorded Confirmed Type atorvastatin 10 mg tablet (Lipitor) 10 mg PO HS 09/22/19 02/20/25 History cyanocobalamin (vitamin B-12) 500 1,000 mcg PO DAILY 07/23/21 02/20/25 History mcg tablet (Vitamin B-12) apixaban 5 mg tablet (Eliquis) 5 mg PO BID 12/05/21 02/20/25 History amlodipine 5 mg tablet (Norvasc) 5 mg PO QAM 30 days #30 tabs 03/16/23 02/20/25 Rx carvedilol 12.5 mg tablet 37.5 mg (3 x 12.5 mg) PO BID 30 03/23/24 02/20/25 Rx days #540 tabs cholecalciferol (vitamin D3) 25 25 mcg PO DAILY 10/20/24 02/20/25 History mcg (1,000 unit) capsule (Vitamin D3) denosumab 60 mg/mL subcutaneous 60 mg subcut DIRECTED 10/20/24 02/20/25 History syringe (Prolia) docusate sodium 100 mg capsule 100 mg PO BID 10/20/24 02/20/25 History melatonin 3 mg-chamomile flower 1 tab PO HS 10/20/24 02/20/25 History 500 mcg tablet pantoprazole 40 mg tablet,delayed 40 mg PO BID 10/20/24 02/20/25 History release furosemide 40 mg tablet (Lasix) 40 mg PO BID #60 tabs 10/31/24 02/20/25 Rx magnesium chloride 64 mg 64 mg PO TID #90 tabs 10/31/24 02/20/25 Rx (magnesium chloride) tablet,delayed release (Mag-Delay) potassium chloride 20 mEq 20 meq PO TID 90 days #180 tabs 10/31/24 02/20/25 Rx tablet,extended release sacubitril 97 mg-valsartan 103 mg 1 tab PO BID #180 tabs 11/14/24 02/20/25 Rx tablet (Entresto) mirtazapine 15 mg tablet 15 mg PO HS 02/20/25 02/20/25 History Patient History Medical History Arthritis Limb alert care status RUE History of uterine fibroid Degenerative disc disease Spinal stenosis Chronic back pain Osteoarthritis Osteoporosis History of kidney stones History of gastric ulcer History of breast cancer Rt - 17 years ago - S/p Rt mastectomy, chemo + radiation, Lt - 2018 - s/p lumpectomy x 2, raidation 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 followed with physical therapy. History of depression Valvular heart disease [place] [facility] [place]; moderate MR, mild global hypokinesis LV, RVSP 40-50mmHg Malignant neoplasm of central portion of left breast in female, estrogen receptor negative 2016 Surgical History Port-A-Cath in place (06/09/21) Insertion of Access Port with Fluoroscopy(Left) - Amador Archibald DO, FACS 06/09/2021 H/O: hysterectomy H/O knee surgery left knee reconstruction Status post correction of deviated nasal septum History of tooth extraction History of foot surgery BL History of lumpectomy of left breast x 2 2019 Hx of right mastectomy with lymph node removal 1991 History of breast biopsy Family History Father Esophageal cancer Social History Smoking Status: Former smoker Tobacco Type: Cigarettes Second Hand Exposure: No; Do You Dip or Chew Tobacco: No; Hx Alcohol Use: Yes Alcohol type: beer Hx Substance Use: No Preferred Language: Luxembourgish Communication Ability: Effective Block Press Operator Required: No Beliefs That Will Affect Care: None Current Living Situation: Alone Current Living Situation Comment: Lives independently at [facility] Other Information That Helps Us Care for You: No Feels Safe at Home: Yes Assistive Devices: Cane Physical Exam Psychiatric: Orientation: alert and oriented x 3 Apperance: + disheveled Eye Contact: good eye contact Motor Behavior: no abnormal motor movements Speech: normal rate/rhythm/volume of speech Affect: + constricted affect Mood: + depressed mood; no anxious mood Thought Process: linear/logical thought process Thought Content: reality based without delusions Suicidal Thoughts: denies suicidal thoughts Homicidal Thoughts: denies homicidal thoughts Hallucinations: + auditory hallucinations (chronic intermittent, denies at time of assessment no evidence of respondin); no visual hallucinations Cognition: recent memory grossly intact, remote memory grossly intact and language grossly intact; + attention not intact Estimated Intelligence: consistent with education level Insight: + fair insight Judgment: + limited judgement Vital Signs (Past 24 Hours): Last Vital Signs Temp 36.7 C 02/21/25 10:50 Pulse 74 02/21/25 10:50 Resp 16 02/21/25 10:50 BP 89/58 L 02/21/25 10:50 Pulse Ox 96 02/21/25 10:50 O2 Del Method Room Air 02/21/25 10:50 Results & Data (PSY) Medications Administered Apixaban (Apixaban 5 Mg Tablet) 5 mg PO BID CHRISTINE Stop: 03/22/25 14:04 Last Admin: 02/21/25 09:54 Dose: 5 mg Documented By: Admin: 02/20/25 20:12 Dose: 5 mg Documented By: Admin: 02/20/25 14:41 Dose: 5 mg Documented By: QGV Atorvastatin Calcium (Atorvastatin 10 Mg Tab) 10 mg PO HS CHRISTINE Stop: 03/22/25 20:59 Last Admin: 02/20/25 20:12 Dose: 10 mg Documented By: MARLO Carvedilol (Carvedilol 12.5 Mg Tab) 12.5 mg PO BID CHRISTINE Stop: 03/23/25 08:59 Last Admin: 02/21/25 09:54 Dose: Not Given Documented By: RICCI Cyanocobalamin (Cyanocobalamin (B-12) 500 Mcg Tablet) 1,000 mcg PO DAILY CHRISITNE Stop: 03/23/25 08:59 Last Admin: 02/21/25 09:55 Dose: 1,000 mcg Documented By: RICCI Docusate Sodium (Docusate Sodium 100 Mg Cap) 100 mg PO BID CHRISTINE Stop: 03/22/25 20:59 Last Admin: 02/21/25 09:54 Dose: Not Given Documented By: Admin: 02/20/25 20:13 Dose: 100 mg Documented By: MARLO Dextrose/Sodium Chloride (D5w And 1/2nss) 1,000 mls @ 100 mls/hr IV .Q10H CHRISTINE Stop: 02/23/25 13:14 Last Admin: 02/21/25 01:55 Dose: 80 mls/hr Documented By: Infusion: 02/21/25 01:55 Dose: Infused Documented By: Admin: 02/20/25 14:17 Dose: 80 mls/hr Documented By: QGV Magnesium Chloride (Magnesium Chloride W/Calcium 64mg Delayed Rel Tab) 64 mg PO TID CHRISTINE Stop: 03/22/25 20:59 Last Admin: 02/21/25 09:55 Dose: 64 mg Documented By: Admin: 02/20/25 20:13 Dose: 64 mg Documented By: MARLO Melatonin (Melatonin 3 Mg Tab) 3 mg PO HS PRN PRN Reason: Sleep Stop: 03/22/25 19:30 Last Admin: 02/20/25 20:17 Dose: 3 mg Documented By: MARLO Pantoprazole Sodium (Pantoprazole 40 Mg Tab) 40 mg PO BID CHRISTINE Stop: 03/22/25 20:59 Last Admin: 02/21/25 09:55 Dose: 40 mg Documented By: Admin: 02/20/25 20:13 Dose: 40 mg Documented By: MARLO Vitamin D (Cholecalciferol 25 Mcg (1000 Units) Tab) 25 mcg PO DAILY CHRISTINE Stop: 03/23/25 08:59 Last Admin: 02/21/25 09:55 Dose: 25 mcg Documented By: RICCI Coding Level of Care Code 06134 IN/OBS CONSULT LVL 5,80M Diagnoses Complicated bereavement F43.81 Adjustment disorder with depressed mood F43.21 Hallucinations R44.3
--- NOTE | 2025-02-21 13:01 | Hospitalist Progress Note ---
Date of Service February 21, 2025 Assessment & Plan (1) Acute dehydration: (2) Hypernatremia: (3) Adult failure to thrive syndrome: (4) Hypokalemia: Plan Patient is a 79y/o F with PMHx significant for malignant neoplasm of ovary, prediabetes, HLD, pulmonary hypertension, emphysema, chronic systolic heart failure, CAD, HTN, nonrheumatic mitral valve regurgitation, vitamin D deficiency, GERD, malignant neoplasm of large intestine and rectum, senile osteoporosis, malignant neoplasm of peritoneum, chronic PE anticoagulated on Eliquis, malignant neoplasm of intrapelvic lymph nodes, adjustment disorder with depressed mood, chronic depression with insomnia and hyponatremia/SIADH who presented to the ED via EMS due to inability to care for self. 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 -- Toxicology screen negative --Alcohol level negative Continue IV fluids Monitor sodium levels Appreciate psychiatry input Started on sertraline, mirtazapine Abnormal UA Rule out UTI Empirically on IV Rocephin Hypokalemia Hypomagnesemia Replete and monitor Alcohol use disorder Suspected alcohol withdrawal Was drinking 2.5 beers nightly Last drink 1 week ago Continue IV thiamine Monitor for withdrawal Nodular focus of the basal RLL Also was seen on prior CT thoracic spine from October 2024 --CXR:Emphysema with chronic interstitial coarsening. Chronic pleural- parenchymal scarring of right lung apex. Nodular focus of the basal right lower lobe, also seen on the 10/20/2024 CT thoracic spine. Attention at follow-up recommended in order to exclude pleural metastasis. Needs follow-up as outpatient to exclude pleural metastasis Abnormal thoracic and lumbar CT imaging noted last admission in October 2024 Findings c/f bone lesions, hepatic lesions, pulmonary lesion (as above) Needs f/u with heme/onc on discharge HTN Presented with hypotension Norvasc, Entresto on hold Decreased Coreg--continue with holding parameters IV fluids as needed Recent medication noncompliance Has not taken meds for past week due to depression, grief rx Appears pt has been refilling her meds appropriately per ext med record Chronic PE Continue Eliquis Chronic systolic CHF Moderate to severe mitral regurgitation Nonischemic cardiomyopathy Has f/w [facility] cards in the past Most recent TTE, 10/22/24: EF 45-50%, mild concentric LVH, mild global hypokinesis of the LV, grade II DD, mod-severe MR (grossly unchanged from TTE done 07/2023) Currently no signs of volume overload Entresto on hold Continue Coreg with holding parameters Resume Lasix as able HLD Continue statin GERD Continue Protonix History of bilateral breast cancer S/p surgery and chemoradiation History of metastatic ovarian cancer S/p debulking surgery and chemoradiation DVT Px: Eliquis Code Status: FULL CODE Disposition: To be determined Case management to help with discharge planning Patient lives alone Admission and Anticipated Discharge Date Admission Date: February 20, 2025 Subjective Patient is seen and examined at bedside Reports chronic dizziness Admits to feeling depressed but denies any suicidal thoughts currently Ongoing chronic hallucinations Discussed with psychiatry Patient denies any chest pain, dyspnea,, abdominal pain Review of Systems Review of Systems: All systems reviewed & are unremarkable except as noted in Subjective Physical Exam Physical Exam: Physical Exam: Vitals signs as noted above General Appearance: Thin, frail, elderly, no apparent distress Head: normocephalic, Atraumatic Eyes: normal inspection, EOMI Neck: supple, Trachea midline Respiratory/Chest: Normal breath sounds, CTA, + port, No accessory muscle use Cardiovascular: S1, S2, No murmur Abdomen/GI:Soft, Non tender, Bowel sounds present Extremities/Musculoskeletal:normal inspection, no edema Neurologic/Psych:AAOX3, grossly no focal neurological deficits Skin: normal color, warm Results & Data Results & Data Vital Signs (Past 12 Hours) Vital Signs Temp Pulse Pulse Resp BP Pulse Ox O2 Del Method 02/21/25 10:50 36.7 C 74 16 89/58 L 96 Room Air 02/21/25 07:28 36.6 C 78 16 95/63 L 92 Room Air 02/21/25 07:19 75 Laboratory Results Short CBC 02/21/25 Range/Units 10:10 WBC 11.26 H (4.8-10.8) K/ul Hgb 9.4 L (12.0-16.0) g/dL Hct 29.3 L (37.0-47.0) % Plt Count 350 (130-400) K/uL BMP 02/20/25 02/21/25 15:53 10:10 Sodium 146 H 140 Potassium 3.4 L 3.3 L Chloride 108 H 108 H Carbon Dioxide 25 21 BUN 63 H 57 H Creatinine 0.96 0.90 Glucose 88 142 H Calcium 8.6 8.6 Cardiac Enzymes 02/20/25 Range/Units 09:31 Total Creatine Kinase 34 (26-192) U/L
[2025-02-21] MEDS: SODIUM CHLORIDE 0.9% 1,000 ML IV ONE (13:28)
[2025-02-21] MEDS: SERTRALINE HCL 50 MG TABLET PO SCH (13:32)
[2025-02-21] MEDS: THIAMINE HCL 200 MG in SODIUM CHLORIDE 0.9% 50 ML IV SCH (13:34)
[2025-02-21] MEDS: POTASSIUM CHLORIDE / WTR 10 MEQ/100 ML PLCT IV SCH (14:10)
[2025-02-21] MEDS: cefTRIAXone SODIUM 1,000 MG/50 ML BAG IV SCH (14:39)
[2025-02-21] MEDS ORDERED: LEVALBUTEROL HCL 0.63 MG/3 ML NEB NEB PRN (17:20)
--- NOTE | 2025-02-21 19:18 | XRay Report ---
EXAM: Portable AP chest radiograph TECHNIQUE: AP portable radiograph of the chest was obtained. INDICATION: Shortness of breath Comparison: Chest radiograph October 24, 2024. FINDINGS: LINES and TUBES: Left-sided Port-A-Cath with tip projecting over the superior cavoatrial junction. CARDIOVASCULAR: Cardiac silhouette is stably enlarged. Atherosclerosis of the thoracic aorta. LUNGS/PLEURA: Moderate interstitial pulmonary edema. There are worsened perihilar densities that may represent alveolar component of pulmonary edema or multifocal pneumonia. No significant pleural fluid. No discernible pneumothorax. OSSEOUS/OTHER: No displaced acute osseous process identified. Surgical clips over the right axilla/chest wall. IMPRESSION: Redemonstration of CHF Worsened perihilar densities that may represent alveolar component of pulmonary edema or multifocal pneumonia. Electronically signed by Kameron Faye 02-21-2025 7:18 PM
[2025-02-21] MEDS: MIRTAZAPINE TAB 15 MG TAB PO SCH (19:39)
[2025-02-22 07:05] LABS: Hematocrit (blood only) 25.7 % (37.0-47.0); Hemoglobin 8.1 g/dL (12.0-16.0); Mean Corpuscular Hemoglobin 28.4 pg (25.0-34.0); Mean Corpuscular Volume 90.2 fL (80.0-100.0); Platelet Count 291 K/uL (130-400); RDW Standard Deviation 47.8 fL (36.4-46.3); Red Blood Count 2.85 M/uL (4.20-5.40); White Blood Count 7.37 K/ul (4.8-10.8)
[2025-02-22 07:46] LABS: Anion Gap 8.0 (3-11); Blood Urea Nitrogen 39.0 mg/dl (6-23); Calcium 7.8 mg/dl (8.6-10.3); Carbon Dioxide 21.0 mmol/L (21-32); Chloride 114.0 mmol/L (98-107); Creatinine Clr Calc Pharmacy 35.1 ml/min; Glucose 78.0 mg/dl (70-99(Fasting)); Magnesium 1.7 mg/dl (1.7-2.4); Potassium 3.2 mmol/L (3.5-5.1); Sodium 143.0 mmol/L (136-145)
[2025-02-22] MEDS: FUROSEMIDE 40 MG TAB PO SCH (09:31)
[2025-02-22] MEDS: POTASSIUM CHLORIDE CRTAB 20 MEQ TABCR PO SCH (09:35)
[2025-02-22] MEDS: FUROSEMIDE INJ 20 MG/2 ML VIAL IV ONE (11:29)
--- NOTE | 2025-02-22 13:55 | Hospitalist Progress Note ---
Date of Service February 22, 2025 Assessment & Plan (1) Acute dehydration: (2) Hypernatremia: (3) Adult failure to thrive syndrome: (4) Hypokalemia: Plan Patient is a 79y/o F with PMHx significant for malignant neoplasm of ovary, prediabetes, HLD, pulmonary hypertension, emphysema, chronic systolic heart failure, CAD, HTN, nonrheumatic mitral valve regurgitation, vitamin D deficiency, GERD, malignant neoplasm of large intestine and rectum, senile osteoporosis, malignant neoplasm of peritoneum, chronic PE anticoagulated on Eliquis, malignant neoplasm of intrapelvic lymph nodes, adjustment disorder with depressed mood, chronic depression with insomnia and hyponatremia/SIADH who presented to the ED via EMS due to inability to care for self. 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 -- Toxicology screen negative --Alcohol level negative Received IV fluids Monitor sodium levels--improved to 143 today Appreciate psychiatry input Continue sertraline, mirtazapine PT OT prior to discharge Encourage increase oral intake Abnormal UA Rule out UTI Urine culture--Pasteurella Empirically on IV Rocephin Severe protein calorie malnutrition Encouraged to increase oral intake Dietitian consulted Hypokalemia Hypomagnesemia Replete and monitor Alcohol use disorder Suspected alcohol withdrawal Was drinking 2.5 beers nightly Last drink 1 week ago Continue IV thiamine Monitor for withdrawal Nodular focus of the basal RLL Also was seen on prior CT thoracic spine from October 2024 --CXR:Emphysema with chronic interstitial coarsening. Chronic pleural- parenchymal scarring of right lung apex. Nodular focus of the basal right lower lobe, also seen on the 10/20/2024 CT thoracic spine. Attention at follow-up recommended in order to exclude pleural metastasis. Needs follow-up as outpatient to exclude pleural metastasis Abnormal thoracic and lumbar CT imaging noted last admission in October 2024 Findings c/f bone lesions, hepatic lesions, pulmonary lesion (as above) Needs f/u with heme/onc on discharge HTN Presented with hypotension Norvasc, Entresto on hold Decreased Coreg--continue with holding parameters IV fluids as needed Blood pressure stable today Recent medication noncompliance Has not taken meds for past week due to depression, grief rx Appears pt has been refilling her meds appropriately per ext med record Chronic PE Continue Eliquis Chronic systolic CHF Moderate to severe mitral regurgitation Nonischemic cardiomyopathy Has f/w [facility] cards in the past Most recent TTE, 10/22/24: EF 45-50%, mild concentric LVH, mild global hypokinesis of the LV, grade II DD, mod-severe MR (grossly unchanged from TTE done 07/2023) Currently no signs of volume overload Entresto on hold Continue Coreg--reduced dose with holding parameters Resume Lasix Monitor volume status HLD Continue statin GERD Continue Protonix History of bilateral breast cancer S/p surgery and chemoradiation History of metastatic ovarian cancer S/p debulking surgery and chemoradiation DVT Px: Eliquis Code Status: FULL CODE Disposition: To be determined Case management to help with discharge planning Patient lives alone Admission and Anticipated Discharge Date Admission Date: February 20, 2025 Subjective Patient is seen and examined at bedside States feeling less depressed today Dyspnea slowly improving Denies any suicidal thoughts, hallucinations today Patient also denies any chest pain, abdominal pain Review of Systems Review of Systems: All systems reviewed & are unremarkable except as noted in Subjective Physical Exam Physical Exam: Physical Exam: Vitals signs as noted above General Appearance: Thin, frail, elderly, no apparent distress Head: normocephalic, Atraumatic Eyes: normal inspection, EOMI Neck: supple, Trachea midline Respiratory/Chest: Normal breath sounds, basal crackles, + port, No accessory muscle use Cardiovascular: S1, S2, No murmur Abdomen/GI:Soft, Non tender, Bowel sounds present Extremities/Musculoskeletal:normal inspection, no edema Neurologic/Psych:AAOX3, grossly no focal neurological deficits Skin: normal color, warm Results & Data Results & Data Vital Signs (Past 12 Hours) Vital Signs Temp Pulse Pulse Resp BP Pulse Ox O2 Del Method 02/22/25 12:00 36.7 C 79 18 123/65 99 Nasal Cannula 02/22/25 11:45 36.7 C 78 18 123/65 99 Nasal Cannula 02/22/25 07:35 93 Room Air 02/22/25 07:26 88 02/22/25 07:05 36.8 C 80 22 127/65 89 L Room Air 02/22/25 02:49 90 Laboratory Results Short CBC 02/22/25 Range/Units 06:29 WBC 7.37 (4.8-10.8) K/ul Hgb 8.1 L (12.0-16.0) g/dL Hct 25.7 L (37.0-47.0) % Plt Count 291 (130-400) K/uL BMP 02/22/25 06:29 Sodium 143 Potassium 3.2 L Chloride 114 H Carbon Dioxide 21 BUN 39 H Creatinine 0.77 Glucose 78 Calcium 7.8 L
[2025-02-22] MEDS: ADVANCED PROBIOTIC 625 MG CAPSULE PO SCH (17:49)
[2025-02-22] MEDS: HEPARIN 100 UNIT/ML 5ML FLUSH FLUSH PRN (20:21)
[2025-02-23] MEDS: DICLOFENAC SOD 1% GEL 100 GM TUBE EXT PRN (05:08)
[2025-02-23 07:06] LABS: Hematocrit (blood only) 25.7 % (37.0-47.0); Hemoglobin 7.9 g/dL (12.0-16.0); Mean Corpuscular Hemoglobin 28.2 pg (25.0-34.0); Mean Corpuscular Volume 91.8 fL (80.0-100.0); Platelet Count 317 K/uL (130-400); RDW Standard Deviation 48.2 fL (36.4-46.3); Red Blood Count 2.80 M/uL (4.20-5.40); White Blood Count 8.00 K/ul (4.8-10.8)
[2025-02-23 07:28] LABS: Anion Gap 8.0 (3-11); Blood Urea Nitrogen 35.0 mg/dl (6-23); Calcium 8.0 mg/dl (8.6-10.3); Carbon Dioxide 20.0 mmol/L (21-32); Chloride 119.0 mmol/L (98-107); Creatinine Clr Calc Pharmacy 36.5 ml/min; Glucose 80.0 mg/dl (70-99(Fasting)); Magnesium 1.7 mg/dl (1.7-2.4); Potassium 3.3 mmol/L (3.5-5.1); Sodium 147.0 mmol/L (136-145)
[2025-02-23] MEDS: THIAMINE HCL 50 MG TABLET PO SCH (08:23)
[2025-02-23] MEDS: ACETAMINOPHEN 325 MG TAB PO PRN (08:34)
[2025-02-23] MEDS: FUROSEMIDE 20 MG TAB PO SCH (08:35)
--- NOTE | 2025-02-23 13:56 | Psychiatric Progress Note ---
Date of Service February 23, 2025 Impression / Recommendations Impression Diagnostically consistent with unspecified depressive disorder likely adjustment disorder with depressed mood as well as complicated bereavement as well as possible cognitive impairment with hallucinations vs alcohol-induced psychotic symptoms. May also be a component of alcohol-withdrawal mood changes as she reports abruptly stopping her nightly 2.5 beers after her cat last week. She adamantly denies that her poor po intake was an attempt to but rather felt nauseous after the of her cat and did not want to eat as it made her feel ill. Acute risk is low given denial of active SI, feels safe in the hospital, feels able to alert nurses if she needs more support, future-oriented, strong deterrents to suicide and no history of prior attempts. Chronic risk is moderate given history of depression, hallucinations, access to a gun, and multiple losses over the years but also with protective factors including: good social support, strong nondenominational beliefs, sense of responsibility to family and social supports, and willingness to engage with treatment. Counseled on ways to reduce acute and chronic risk including engaging with and utilizing supports, taking medication, and potential for alternative living options with increased support. A: Ongoing failure to thrive with poor motivation, low appetite and increased sedation with some irritability. This could represent hypoactive delirium vs adjustment disorder with depression vs ongoing complicated bereavement vs long- standing personality traits vs cognitive impairment process. No evidence for acute psychosis nor aubree nor major depression. She continues to deny SI and is very future-oriented and expresses hopefulness for the future. In terms of decision making capacity I do not feel she has the capacity to leave [facility] as she cannot state what she is being treated for, cannot speak to risks/benefits of going home vs declining alternative options and shows loosened associations with multiple questions which suggests current state of delirium (ongoing hypernatremia) vs cognitive impairment. Given ongoing poor intake and cardiac co-morbidities would avoid trial of a stimulant like modafinil at this time but if po intake improves this could be considered for off-label use for depression to help with energy and motivation. -For behavioral emergency: olanzapine 2.5 mg IM x 1 (DO NOT exceed 10mg per 24 hours, check EKG if IM dose required, NEVER co-administer with IM or IV benzodiazepines). Overall, I spent a total of 60 minutes with this case including review of chart records, review of labwork, direct evaluation of the patient at bedside, counseling the patient, discussion of the patient with the Nurse and with the hospitalist provider, discussion with the psychiatric liason during clinical rounds and documentation in the electronic health record. (1) Complicated bereavement: (2) Adjustment disorder with depressed mood: (3) Hallucinations: Plan 02/23/2025: -Doesn't have decision making capacity to leave AMA, call security if she attempts to do so -Consider mirtazapine, she refused it last night -She continues to decline option for JOE to involve supports or gather further collateral information 02/21/2025: -Doesn't require 1-on-1 or suicide precautions -Start sertraline 25mg daily, monitor sodium given history of SIADH -Consider use of mirtazapine 7.5mg HS to help with sleep/nausea/appetite stimulation -Watch for signs of alcohol withdrawal given abrupt discontinuation last week -She declines JOE for any supports at this time for further collateral and discussion of access to gun, psych liasons will continue to explore this as she reported potentially willingness to consider this tomorrow Interval History Identifying Information Huma Camarillo is a 79y/o F with PMHx significant for malignant neoplasm of ovary, prediabetes, HLD, pulmonary hypertension, emphysema, chronic systolic heart failure, CAD, HTN, nonrheumatic mitral valve regurgitation, vitamin D def iciency, GERD, malignant neoplasm of large intestine and rectum, senile osteoporosis, malignant neoplasm of peritoneum, chronic PE anticoagulated on Eliquis, malignant neoplasm of intrapelvic lymph nodes, adjustment disorder with depressed mood, chronic depression with insomnia and hyponatremia/SIADH who presented to the ED via EMS due to inability to care for self. Psychiatry consulted for depression, self-harm risk assessment. Chief Complaint "I think that's enough". Subjective Subjective Patient was seen & assessed and interval progress reviewed. She has been refusing to participate with PT, not eating meals and is refusing care for incontinence. Today she is lying in bed this afternoon, in the dark, sleeping. She wakes to verbal prompts and removes her eye mask. She is slightly irritable, trying to immediately dismiss me by stating she is leaving tomorrow. Discussed that I had concerns about how she would manage at home hence physical therapy is recommending she go for physical rehab to get stronger but she has been refusing to participate with them. Also discussed concerns about the fact that she has not been eating and that the hospitalist team was concerned by this. She states "I was not eating it because I was not hungry". In assessing her decision-making capacity using the Aid to Capacity Evaluation she tells me "I want to go home" and states she plans to do this tomorrow. She cannot tell me what brought her to the hospital rather answers with "I am going to get my car and pay my friends for their taxi service and go to the store". Asked what she thinks could happen if she goes home she states "I think I will get better" and she adamantly denies any suicidal thoughts. Asked about what she thinks will happen in terms of her weakness she states "I am going to get back into holiness and go to [facility] or praying at home was my physical therapy". Asked her to clarify this for me as I was not sure how praying at home related to physical therapy and she could not. Rather responds that "sometimes I do not like to drive to [facility] it is really far away". Asked what potential benefits were of staying in the hospital she could not name any. Asked what potential risks were of staying in the hospital she could not name any. Asked what potential benefits or risks were of going home she stated "what are the risks not to?". She then tells me "I think that is enough" and states "if you want to keep me here then I will see you in court". Attempted to discuss her medication she is focused on the fact that all she wants to take is melatonin and a version of melatonin that "is like melatonin but it gives you energy". Stated she was not interested in a stimulant medication to help with motivation nor energy. Physical Exam Vital Signs (Past 24 Hours) Last Vital Signs Temp 36.5 C 02/23/25 13:12 Pulse 63 02/23/25 13:12 Resp 20 02/23/25 13:12 BP 104/66 02/23/25 13:12 Pulse Ox 93 02/23/25 13:12 O2 Del Method Room Air 02/23/25 13:12 O2 Flow Rate 2 02/22/25 20:07 Results & Data ([facility]) Laboratory Results Laboratory Results - last 24 hr 02/23/25 06:39 WBC 8.00 RBC 2.80 L Hgb 7.9 L Hct 25.7 L MCV 91.8 MCH 28.2 MCHC 30.7 L RDW Std Deviation 48.2 H RDW Coeff of Cain 14.4 Plt Count 317 MPV 10.1 Sodium 147 H Potassium 3.3 L Chloride 119 H Carbon Dioxide 20 L Anion Gap 8 BUN 35 H Creatinine 0.74 Est Cr Clr Drug Dosing 36.5 eGFR 83.28 BUN/Creatinine Ratio 47.3 H Glucose 80 Calcium 8.0 L Magnesium 1.7 Current Inpatient Medications Current Inpatient Medications: Current Inpatient Medications Acetaminophen (Acetaminophen 325 Mg Tab) 650 mg PO Q4H PRN PRN Reason: Pain or Fever Stop: 03/22/25 15:33 Last Admin: 02/23/25 08:34 Dose: 650 mg Apixaban (Apixaban 5 Mg Tablet) 5 mg PO BID CHRISTINE Stop: 03/22/25 14:04 Last Admin: 02/23/25 08:24 Dose: 5 mg Atorvastatin Calcium (Atorvastatin 10 Mg Tab) 10 mg PO HS CHRISTINE Stop: 03/22/25 20:59 Last Admin: 02/22/25 20:24 Dose: Not Given Carvedilol (Carvedilol 12.5 Mg Tab) 12.5 mg PO BID CHRISTINE Stop: 03/25/25 20:59 Cyanocobalamin (Cyanocobalamin (B-12) 500 Mcg Tablet) 1,000 mcg PO DAILY CHRISTINE Stop: 03/23/25 08:59 Last Admin: 02/23/25 08:24 Dose: 1,000 mcg Diclofenac Sodium (Diclofenac Sod 1% Gel 100 Gm Tube) 2 gm EXT Q6H PRN; Protocol PRN Reason: leg pain Stop: 03/25/25 04:51 Last Admin: 02/23/25 05:08 Dose: 2 gm Docusate Sodium (Docusate Sodium 100 Mg Cap) 100 mg PO BID CHRISTINE Stop: 03/22/25 20:59 Last Admin: 02/23/25 08:31 Dose: Not Given Furosemide (Furosemide 20 Mg Tab) 20 mg PO BID17 CHRISTINE Stop: 03/25/25 08:59 Last Admin: 02/23/25 08:35 Dose: 20 mg Heparin Sodium (Porcine) (Heparin 100 Unit/Ml 5ml Flush) 5 ml FLUSH PRN PRN PRN Reason: Flush Stop: 03/23/25 05:53 Last Admin: 02/22/25 20:21 Dose: 5 ml Ceftriaxone Sodium (Rocephin) 1,000 mg in 50 mls @ 100 mls/hr IV Q24H [facility] Stop: 02/23/25 14:29 Last Admin: 02/23/25 13:13 Dose: 100 mls/hr Lactobacillus Acidophilus (Advanced Probiotic 625 Mg Capsule) 1,250 mg PO DAILY [facility] Stop: 03/24/25 15:29 Last Admin: 02/23/25 08:22 Dose: 1,250 mg Levalbuterol HCl (Levalbuterol Hcl 0.63 Mg/3 Ml Neb) 0.63 mg NEB Q6H PRN; Protocol PRN Reason: Shortness Of Breath Or Wheezing Stop: 03/23/25 17:19 Magnesium Chloride (Magnesium Chloride W/Calcium 64mg Delayed Rel Tab) 64 mg PO TID [facility] Stop: 03/22/25 20:59 Last Admin: 02/23/25 13:14 Dose: 64 mg Magnesium Hydroxide (Magnesium Hydroxide Susp 30 Ml Udc) 30 ml PO Q12H PRN PRN Reason: Constipation Stop: 03/22/25 15:33 Melatonin (Melatonin 3 Mg Tab) 3 mg PO HS PRN PRN Reason: Sleep Stop: 03/22/25 19:30 Last Admin: 02/22/25 20:00 Dose: 3 mg Mirtazapine (Mirtazapine Tab 15 Mg Tab) 7.5 mg PO HS [facility] Stop: 03/23/25 20:59 Last Admin: 02/22/25 20:24 Dose: Not Given Ondansetron HCl (Ondansetron Inj 2 Mg/Ml 2 Ml Vial) 4 mg IV Q6H PRN PRN Reason: Nausea Stop: 03/22/25 15:33 Pantoprazole Sodium (Pantoprazole 40 Mg Tab) 40 mg PO BID [facility] Stop: 03/22/25 20:59 Last Admin: 02/23/25 08:24 Dose: 40 mg Polyethylene Glycol (Polyethylene (Miralax) 17 Gm Pack) 17 gm PO DAILY PRN PRN Reason: Constipation Stop: 03/22/25 15:33 Potassium Chloride (Potassium Chloride Crtab 20 Meq Tabcr) 40 meq PO BID [facility] Stop: 02/24/25 08:59 Last Admin: 02/23/25 08:31 Dose: 40 meq Sertraline HCl (Sertraline Hcl 50 Mg Tablet) 25 mg PO QAM [facility] Stop: 03/23/25 12:44 Last Admin: 02/23/25 08:24 Dose: 25 mg Thiamine HCl (Thiamine Hcl 50 Mg Tablet) [facility] Stop: 02/27/25 09:01 Last Admin: 02/23/25 08:23 Dose: 250 mg Vitamin D (Cholecalciferol 25 Mcg (1000 Units) Tab) 25 mcg PO DAILY [facility] Stop: 03/23/25 08:59 Last Admin: 02/23/25 08:25 Dose: 25 mcg
--- NOTE | 2025-02-23 15:23 | Hospitalist Progress Note ---
Date of Service February 23, 2025 Assessment & Plan (1) Acute dehydration: (2) Hypernatremia: (3) Adult failure to thrive syndrome: (4) Hypokalemia: Plan Patient is a 79y/o F with PMHx significant for malignant neoplasm of ovary, prediabetes, HLD, pulmonary hypertension, emphysema, chronic systolic heart failure, CAD, HTN, nonrheumatic mitral valve regurgitation, vitamin D deficiency, GERD, malignant neoplasm of large intestine and rectum, senile osteoporosis, malignant neoplasm of peritoneum, chronic PE anticoagulated on Eliquis, malignant neoplasm of intrapelvic lymph nodes, adjustment disorder with depressed mood, chronic depression with insomnia and hyponatremia/SIADH who presented to the ED via EMS due to inability to care for self. 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 -- Toxicology screen negative --Alcohol level negative Cautious use of IV fluids given CHF Monitor sodium levels--146 today worsening likely due to poor oral intake Appreciate psychiatry input Continue sertraline, mirtazapine PT OT prior to discharge Encourage increase oral intake Has been refusing medications intermittently Abnormal UA Ruled out UTI Urine culture--Pasteurella Empirically received IV Rocephin Severe protein calorie malnutrition Encouraged to increase oral intake Dietitian consulted Hypokalemia Hypomagnesemia Replete and monitor Alcohol use disorder Suspected alcohol withdrawal Was drinking 2.5 beers nightly Last drink 1 week ago prior to admission Continue IV thiamine Monitor for withdrawal Nodular focus of the basal RLL Also was seen on prior CT thoracic spine from October 2024 --CXR:Emphysema with chronic interstitial coarsening. Chronic pleural- parenchymal scarring of right lung apex. Nodular focus of the basal right lower lobe, also seen on the 10/20/2024 CT thoracic spine. Attention at follow-up recommended in order to exclude pleural metastasis. Needs follow-up as outpatient to exclude pleural metastasis Abnormal thoracic and lumbar CT imaging noted last admission in October 2024 Findings c/f bone lesions, hepatic lesions, pulmonary lesion (as above) Needs f/u with heme/onc on discharge HTN Presented with hypotension Blood pressure low Norvasc, Entresto on hold Continue Coreg--adjust dose as needed given relatively low blood pressure Recent medication noncompliance Has not taken meds for past week due to depression, grief rx Appears pt has been refilling her meds appropriately per ext med record Chronic PE Continue Eliquis Chronic systolic CHF Moderate to severe mitral regurgitation Nonischemic cardiomyopathy Has f/w [facility] cards in the past Most recent TTE, 10/22/24: EF 45-50%, mild concentric LVH, mild global hypokinesis of the LV, grade II DD, mod-severe MR (grossly unchanged from TTE done 07/2023) Currently no signs of volume overload Entresto on hold Continue Coreg--with holding parameters Resumed Lasix at lower dose Monitor volume status HLD Continue statin GERD Continue Protonix History of bilateral breast cancer S/p surgery and chemoradiation History of metastatic ovarian cancer S/p debulking surgery and chemoradiation DVT Px: Eliquis Code Status: FULL CODE Disposition: Patient currently lacks medical decision capacity to leave AMA per psych Disposition difficult Case management to help with discharge planning Admission and Anticipated Discharge Date Admission Date: February 20, 2025 Subjective Patient is seen and examined at bedside Very poor oral intake Not motivated, mostly sleeping in bed throughout the day Reports generalized weakness Intermittently refusing medications Discussed with psychiatry Her brief NSVT today Denies any suicidal thoughts Believes her mood is improving Denies any chest pain, abdominal pain, nausea, vomiting Review of Systems Review of Systems: All systems reviewed & are unremarkable except as noted in Subjective Physical Exam Physical Exam: Physical Exam: Vitals signs as noted above General Appearance: Thin, frail, elderly, no apparent distress Head: normocephalic, Atraumatic Eyes: normal inspection, EOMI Neck: supple, Trachea midline Respiratory/Chest: Normal breath sounds, basal crackles, + port, No accessory muscle use Cardiovascular: S1, S2, No murmur Abdomen/GI:Soft, Non tender, Bowel sounds present Extremities/Musculoskeletal:normal inspection, no edema Neurologic/Psych:AAOX3, grossly no focal neurological deficits Skin: normal color, warm Results & Data Results & Data Vital Signs (Past 12 Hours) Vital Signs Temp Pulse Pulse Resp BP Pulse Ox O2 Del Method 02/23/25 13:12 36.5 C 63 20 104/66 93 Room Air 02/23/25 08:02 36.9 C 86 16 119/78 96 Room Air 02/23/25 07:33 80 02/23/25 04:09 36.7 C 81 16 148/66 H 97 Room Air Laboratory Results Short CBC 02/23/25 Range/Units 06:39 WBC 8.00 (4.8-10.8) K/ul Hgb 7.9 L (12.0-16.0) g/dL Hct 25.7 L (37.0-47.0) % Plt Count 317 (130-400) K/uL BMP 02/23/25 06:39 Sodium 147 H Potassium 3.3 L Chloride 119 H Carbon Dioxide 20 L BUN 35 H Creatinine 0.74 Glucose 80 Calcium 8.0 L
[2025-02-23] MEDS: MAGNESIUM SULFATE / D5W 1 GM/100 ML BAG IV ONE (16:29)
--- NOTE | 2025-02-23 18:16 | Electrocardiogram Report ---
Test Reason : Blood Pressure : */* mmHG Vent. Rate : 82 BPM Atrial Rate : 82 BPM P-R Int : 132 ms QRS Dur : 110 ms QT Int : 376 ms P-R-T Axes : 97 24 85 degrees QTcB Int : 439 ms Normal sinus rhythm Septal infarct (cited on or before 13-Mar-2023) Abnormal ECG When compared with ECG of 20-Oct-2024 14:46, Premature ventricular complexes are no longer Present Premature supraventricular complexes are no longer Present QRS axis Shifted right Confirmed by Eric Shabazz [id number] on 02/23/2025 6:16:06 PM Referred By: Confirmed By: Eric Shabazz
[2025-02-23] MEDS: POTASSIUM CHLORIDE CRTAB 20 MEQ TABCR PO SCH (21:01)
[2025-02-24 06:52] LABS: Hematocrit (blood only) 29.5 % (37.0-47.0); Hemoglobin 9.2 g/dL (12.0-16.0)
[2025-02-24 07:48] LABS: Anion Gap 11.0 (3-11); Blood Urea Nitrogen 31.0 mg/dl (6-23); Calcium 8.5 mg/dl (8.6-10.3); Carbon Dioxide 17.0 mmol/L (21-32); Chloride 122.0 mmol/L (98-107); Creatinine Clr Calc Pharmacy 34.6 ml/min; Glucose 78.0 mg/dl (70-99(Fasting)); Magnesium 2.0 mg/dl (1.7-2.4); Potassium 4.2 mmol/L (3.5-5.1); Sodium 150.0 mmol/L (136-145)
[2025-02-24] MEDS: DEXTROSE 5% 500 ML IV ONE (09:27)
--- NOTE | 2025-02-24 14:07 | Hospitalist Progress Note ---
Date of Service February 24, 2025 Assessment & Plan (1) Acute dehydration: (2) Hypernatremia: (3) Adult failure to thrive syndrome: (4) Hypokalemia: Plan Patient is a 79y/o F with PMHx significant for malignant neoplasm of ovary, prediabetes, HLD, pulmonary hypertension, emphysema, chronic systolic heart failure, CAD, HTN, nonrheumatic mitral valve regurgitation, vitamin D deficiency, GERD, malignant neoplasm of large intestine and rectum, senile osteoporosis, malignant neoplasm of peritoneum, chronic PE anticoagulated on Eliquis, malignant neoplasm of intrapelvic lymph nodes, adjustment disorder with depressed mood, chronic depression with insomnia and hyponatremia/SIADH who presented to the ED via EMS due to inability to care for self. 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 -- Toxicology screen negative --Alcohol level negative Cautious use of IV fluids given CHF Oral intake remains very poor Sodium levels worsened to 150 today We will start on D5 water Appreciate psychiatry input Continue sertraline, mirtazapine Nephrology consulted PT OT prior to discharge Encourage increase oral intake Monitor BMP closely Severe protein calorie malnutrition Encouraged to increase oral intake Dietitian consulted Hypokalemia Hypomagnesemia Replete and monitor HTN Presented with hypotension Blood pressure low Norvasc, Entresto on hold Continue Coreg--adjust dose as needed given relatively low blood pressure NSVT Noted on 02/23/2025 Monitor repeat electrolytes as needed Continue Coreg as able Alcohol use disorder Suspected alcohol withdrawal Was drinking 2.5 beers nightly Last drink 1 week ago prior to admission Continue thiamine Monitor for withdrawal Abnormal UA Ruled out UTI Urine culture--Pasteurella Received IV Rocephin empirically Nodular focus of the basal RLL Also was seen on prior CT thoracic spine from October 2024 --CXR:Emphysema with chronic interstitial coarsening. Chronic pleural- parenchymal scarring of right lung apex. Nodular focus of the basal right lower lobe, also seen on the 10/20/2024 CT thoracic spine. Attention at follow-up recommended in order to exclude pleural metastasis. Needs follow-up as outpatient to exclude pleural metastasis Abnormal thoracic and lumbar CT imaging noted last admission in October 2024 Findings c/f bone lesions, hepatic lesions, pulmonary lesion (as above) Needs f/u with heme/onc on discharge Recent medication noncompliance Has not taken meds for past week due to depression, grief rx Appears pt has been refilling her meds appropriately per ext med record Chronic PE Continue Eliquis Chronic systolic CHF Moderate to severe mitral regurgitation Nonischemic cardiomyopathy Has f/w [facility] cards in the past Most recent TTE, 10/22/24: EF 45-50%, mild concentric LVH, mild global hypokinesis of the LV, grade II DD, mod-severe MR (grossly unchanged from TTE done 07/2023) Currently no signs of volume overload Entresto on hold Continue Coreg--with holding parameters Monitor volume status closely Resume Lasix as able HLD Continue statin GERD Continue Protonix History of bilateral breast cancer S/p surgery and chemoradiation History of metastatic ovarian cancer S/p debulking surgery and chemoradiation Reports intermittent vaginal bleed since surgery DVT Px: Eliquis Code Status: FULL CODE Disposition: Patient currently lacks medical decision capacity to leave AMA per psych Disposition difficult Case management to help with discharge planning Admission and Anticipated Discharge Date Admission Date: February 20, 2025 Subjective Patient is seen and examined at bedside Oral intake remains very poor Reports chronic ongoing intermittent minimal vaginal bleed which she attributes to her malignancy Denies any suicidal thoughts No new complaints Sodium level rising Denies any chest pain, abdominal pain, nausea, vomiting Review of Systems Review of Systems: All systems reviewed & are unremarkable except as noted in Subjective Physical Exam Physical Exam: Physical Exam: Vitals signs as noted above General Appearance: Thin, frail, elderly, no apparent distress Head: normocephalic, Atraumatic Eyes: normal inspection, EOMI Neck: supple, Trachea midline Respiratory/Chest: Normal breath sounds, CTA, + port, No accessory muscle use Cardiovascular: S1, S2, No murmur Abdomen/GI:Soft, Non tender, Bowel sounds present Extremities/Musculoskeletal:normal inspection, no edema Neurologic/Psych:AAOX3, grossly no focal neurological deficits Skin: normal color, warm Results & Data Results & Data Vital Signs (Past 12 Hours) Vital Signs Temp Pulse Pulse Resp BP Pulse Ox O2 Del Method 02/24/25 11:19 36.4 C L 72 18 97/67 L 98 Room Air 02/24/25 07:57 36.3 C L 81 18 112/71 96 Room Air 02/24/25 05:46 77 02/24/25 03:16 37 C 77 16 101/68 98 Room Air Laboratory Results Short CBC 02/24/25 Range/Units 06:01 Hgb 9.2 L (12.0-16.0) g/dL Hct 29.5 L (37.0-47.0) % BMP 02/24/25 06:01 Sodium 150 H Potassium 4.2 D Chloride 122 H Carbon Dioxide 17 L BUN 31 H Creatinine 0.78 Glucose 78 Calcium 8.5 L
[2025-02-24 15:01] LABS: Anion Gap 7.0 (3-11); Blood Urea Nitrogen 35.0 mg/dl (6-23); Calcium 8.2 mg/dl (8.6-10.3); Carbon Dioxide 21.0 mmol/L (21-32); Chloride 117.0 mmol/L (98-107); Creatinine Clr Calc Pharmacy 27.8 ml/min; Glucose 151.0 mg/dl (70-99(Fasting)); Potassium 4.1 mmol/L (3.5-5.1); Sodium 145.0 mmol/L (136-145)
--- NOTE | 2025-02-24 20:00 | Nephrology Consultation ---
Date of Consultation February 24, 2025 Assessment & Plan (1) Hypernatremia: 2/ poor fluid intake water deficient of @1 lt - Ok with d5w 50 mls /hr-- Rec to continue with this her oral intake improved - Encourage oral fluid 250 q6 - Replace electrolytes as needed. Norvasc, Entresto, furosemide on hold-- BP has been soft Continue Coreg--adjust dose as needed given relatively low blood pressure (2) Adjustment disorder with depressed mood: Psychiatry on board - f/ recs (3) Congestive heart failure: Chronic systolic CHF Moderate to severe mitral regurgitation Nonischemic cardiomyopathy -Currently no signs of volume overload Entresto on hold Continue Coreg--with holding parameters Monitor volume status closely Resume Lasix as able History of Present Illness Reason for Consultation: Hypernatremia Attending Physician: David Thomas MD History of Present Illness Patient is a 79y/ very frail and Malnourished elderly who was brought by [facility] due to inability to care for himself.She has been depresssed following the of her cat, She has not been caring for herself, appetite has been poor. Since admission soium has been in mid to late 140's.Potassium has been in early to mid 3.0's.BP has been soft , she is making urine. Oral intake continues to be Poor. PMHx significant for malignant neoplasm of ovary, prediabetes, HLD, pulmonary hypertension, chronic systolic heart failure, CAD, HTN, nonrheumatic mitral valve regurgitation, vitamin D deficiency, GERD, malignant neoplasm of large intestine and rectum, senile osteoporosis, malignant neoplasm of peritoneum, chronic PE anticoagulated on Eliquis, malignant neoplasm of intrapelvic lymph nodes, adjustment disorder with depressed mood, chronic depression with insomnia and hyponatremia/SIADH Allergies Allergy/AdvReac Type Severity Reaction Status Date / Time diphenhydramine Allergy Severe Difficulty Verified 10/20/24 17:47 [From Benadryl] Breathing doxorubicin Allergy Severe CHEMO Verified 10/20/24 17:47 DRUG--UNKNOWN house dust Allergy Intermediate CONGESTION-ODORS, Verified 10/20/24 17:47 FUMES, DUST Home Medications Medication Instructions Recorded Confirmed Type atorvastatin 10 mg tablet (Lipitor) 10 mg PO HS 09/22/19 02/20/25 History cyanocobalamin (vitamin B-12) 500 1,000 mcg PO DAILY 07/23/21 02/20/25 History mcg tablet (Vitamin B-12) apixaban 5 mg tablet (Eliquis) 5 mg PO BID 12/05/21 02/20/25 History amlodipine 5 mg tablet (Norvasc) 5 mg PO QAM 30 days #30 tabs 03/16/23 02/20/25 Rx carvedilol 12.5 mg tablet 37.5 mg (3 x 12.5 mg) PO BID 30 03/23/24 02/20/25 Rx days #540 tabs cholecalciferol (vitamin D3) 25 25 mcg PO DAILY 10/20/24 02/20/25 History mcg (1,000 unit) capsule (Vitamin D3) denosumab 60 mg/mL subcutaneous 60 mg subcut DIRECTED 10/20/24 02/20/25 History syringe (Prolia) docusate sodium 100 mg capsule 100 mg PO BID 10/20/24 02/20/25 History melatonin 3 mg-chamomile flower 1 tab PO HS 10/20/24 02/20/25 History 500 mcg tablet pantoprazole 40 mg tablet,delayed 40 mg PO BID 10/20/24 02/20/25 History release furosemide 40 mg tablet (Lasix) 40 mg PO BID #60 tabs 10/31/24 02/20/25 Rx magnesium chloride 64 mg 64 mg PO TID #90 tabs 10/31/24 02/20/25 Rx (magnesium chloride) tablet,delayed release (Mag-Delay) potassium chloride 20 mEq 20 meq PO TID 90 days #180 tabs 10/31/24 02/20/25 Rx tablet,extended release sacubitril 97 mg-valsartan 103 mg 1 tab PO BID #180 tabs 11/14/24 02/20/25 Rx tablet (Entresto) mirtazapine 15 mg tablet 15 mg PO HS 02/20/25 02/20/25 History Patient History Medical History Arthritis Limb alert care status RUE History of uterine fibroid Degenerative disc disease Spinal stenosis Chronic back pain Osteoarthritis Osteoporosis History of kidney stones History of gastric ulcer History of breast cancer Rt - 17 years ago - S/p Rt mastectomy, chemo + radiation, Lt - 2018 - s/p lumpectomy x 2, raidation 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 followed with physical therapy. History of depression Valvular heart disease follows with [facility] [place] [facility] Dr Shabazz; moderate MR, mild global hypokinesis LV, RVSP 40-50mmHg Malignant neoplasm of central portion of left breast in female, estrogen receptor negative 2016 Surgical History Port-A-Cath in place (06/09/21) Insertion of Access Port with Fluoroscopy(Left) - Amador Archibald DO, FACS 06/09/2021 H/O: hysterectomy H/O knee surgery left knee reconstruction Status post correction of deviated nasal septum History of tooth extraction History of foot surgery BL History of lumpectomy of left breast x 2019 Hx of right mastectomy with lymph node removal 1991 History of breast biopsy Family History Father Esophageal cancer Social History Smoking Status: Former smoker Tobacco Type: Cigarettes Second Hand Exposure: No; Do You Dip or Chew Tobacco: No; Hx Alcohol Use: Yes Alcohol type: beer Hx Substance Use: No Preferred Language: Welsh Communication Ability: Effective Point Of Care Specialist Required: No Beliefs That Will Affect Care: None Current Living Situation: Alone Current Living Situation Comment: Lives independently at [facility] Other Information That Helps Us Care for You: No Feels Safe at Home: Yes Assistive Devices: Cane Review of Systems 2 Review of Systems: Very frail Comfortable NO SOb Physical Exam 2 Physical Exam: General: Elderly frail HEENT: Dry mucous membranes, Respiratory: Normal respiratory effort, CTAB, on RA Cardiovascular: RRR, no BLE edema Abdomen/GI: soft, nontender Extremities/Musculoskeletal: No edema Results & Data Vital Signs (Past 12 Hours) Vital Signs Temp Pulse Pulse Resp BP Pulse Ox O2 Del Method 02/24/25 15:28 36.4 C L 78 18 107/67 97 Room Air 02/24/25 13:08 75 02/24/25 11:19 36.4 C L 72 18 97/67 L 98 Room Air 02/24/25 07:57 36.3 C L 81 18 112/71 96 Room Air Laboratory Results 02/24/25 06:01 02/24/25 14:13 (3) Congestive heart failure Heart failure chronicity: chronic Heart failure type: systolic Qualified Code(s): I50.22 - Chronic systolic (congestive) heart failure
[2025-02-24 21:39] LABS: Anion Gap 7.0 (3-11); Blood Urea Nitrogen 37.0 mg/dl (6-23); Calcium 8.3 mg/dl (8.6-10.3); Carbon Dioxide 20.0 mmol/L (21-32); Chloride 117.0 mmol/L (98-107); Creatinine Clr Calc Pharmacy 26.7 ml/min; Glucose 126.0 mg/dl (70-99(Fasting)); Potassium 4.1 mmol/L (3.5-5.1); Sodium 144.0 mmol/L (136-145)
[2025-02-25 06:16] LABS: Hematocrit (blood only) 28.6 % (37.0-47.0); Hemoglobin 8.8 g/dL (12.0-16.0)
[2025-02-25 06:52] LABS: Anion Gap 7.0 (3-11); Blood Urea Nitrogen 35.0 mg/dl (6-23); Calcium 8.2 mg/dl (8.6-10.3); Carbon Dioxide 20.0 mmol/L (21-32); Chloride 119.0 mmol/L (98-107); Creatinine Clr Calc Pharmacy 25.7 ml/min; Glucose 100.0 mg/dl (70-99(Fasting)); Magnesium 1.9 mg/dl (1.7-2.4); Potassium 4.1 mmol/L (3.5-5.1); Sodium 146.0 mmol/L (136-145)
--- NOTE | 2025-02-25 13:26 | Hospitalist Progress Note ---
Date of Service February 25, 2025 Assessment & Plan (1) Acute dehydration: (2) Hypernatremia: (3) Adult failure to thrive syndrome: (4) Hypokalemia: Plan Patient is a 79y/o F with PMHx significant for malignant neoplasm of ovary, prediabetes, HLD, pulmonary hypertension, emphysema, chronic systolic heart failure, CAD, HTN, nonrheumatic mitral valve regurgitation, vitamin D deficiency, GERD, malignant neoplasm of large intestine and rectum, senile osteoporosis, malignant neoplasm of peritoneum, chronic PE anticoagulated on Eliquis, malignant neoplasm of intrapelvic lymph nodes, adjustment disorder with depressed mood, chronic depression with insomnia and hyponatremia/SIADH who presented to the ED via EMS due to inability to care for self. 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 -- Toxicology screen negative --Alcohol level negative Cautious use of IV fluids given CHF Oral intake remains very poor Sodium levels 146 today Appreciate psychiatry input Continue sertraline, mirtazapine Appreciate nephrology input PT OT prior to discharge Encourage increase oral intake Monitor BMP closely Continue gentle IV fluids as needed Severe protein calorie malnutrition Encouraged to increase oral intake Dietitian consulted Hypokalemia Hypomagnesemia Replete and monitor HTN Presented with hypotension Blood pressure low Norvasc, Entresto on hold Continue reduced dose of Coreg with holding parameters NSVT/PAT Noted on 02/23/2025 Monitor repeat electrolytes as needed Continue Coreg 12.5 mg twice a day Blood pressure low, constraining to increase Coreg dose Alcohol use disorder Suspected alcohol withdrawal Was drinking 2.5 beers nightly Last drink 1 week ago prior to admission Continue thiamine Monitor for withdrawal Abnormal UA Ruled out UTI Urine culture--Pasteurella Received IV Rocephin empirically Nodular focus of the basal RLL Also was seen on prior CT thoracic spine from October 2024 --CXR:Emphysema with chronic interstitial coarsening. Chronic pleural- parenchymal scarring of right lung apex. Nodular focus of the basal right lower lobe, also seen on the 10/20/2024 CT thoracic spine. Attention at follow-up recommended in order to exclude pleural metastasis. Needs follow-up as outpatient to exclude pleural metastasis Abnormal thoracic and lumbar CT imaging noted last admission in October 2024 Findings c/f bone lesions, hepatic lesions, pulmonary lesion (as above) Needs f/u with heme/onc on discharge Recent medication noncompliance Has not taken meds for past week due to depression, grief rx Appears pt has been refilling her meds appropriately per ext med record Chronic PE Continue Eliquis Chronic systolic CHF Moderate to severe mitral regurgitation Nonischemic cardiomyopathy Has f/w [facility] cards in the past Most recent TTE, 10/22/24: EF 45-50%, mild concentric LVH, mild global hypokinesis of the LV, grade II DD, mod-severe MR (grossly unchanged from TTE done 07/2023) Currently no signs of volume overload Entresto on hold Continue Coreg--with holding parameters Monitor volume status closely Resume Lasix as able HLD Continue statin GERD Continue Protonix History of bilateral breast cancer S/p surgery and chemoradiation History of metastatic ovarian cancer S/p debulking surgery and chemoradiation Reports intermittent vaginal bleed since surgery Monitor CBC DVT Px: Eliquis Code Status: FULL CODE Disposition: Patient currently lacks medical decision capacity to leave AMA per psych Disposition difficult Case management to help with discharge planning Admission and Anticipated Discharge Date Admission Date: February 20, 2025 Subjective Patient is seen and examined at bedside Reports generalized weakness and tiredness Offers no other complaints Sleeping in bed most of the day Denies any chest pain, abdominal pain, nausea, vomiting Sodium level is better today Oral intake remains poor Review of Systems Review of Systems: All systems reviewed & are unremarkable except as noted in Subjective Physical Exam Physical Exam: Physical Exam: Vitals signs as noted above General Appearance: Thin, frail, elderly, no apparent distress Head: normocephalic, Atraumatic Eyes: normal inspection, EOMI Neck: supple, Trachea midline Respiratory/Chest: Normal breath sounds, CTA, + port, No accessory muscle use Cardiovascular: S1, S2, No murmur Abdomen/GI:Soft, Non tender, Bowel sounds present Extremities/Musculoskeletal:normal inspection, no edema Neurologic/Psych:AAOX3, grossly no focal neurological deficits Skin: normal color, warm Results & Data Results & Data Vital Signs (Past 12 Hours) Vital Signs Temp Pulse Pulse Resp BP Pulse Ox O2 Del Method 02/25/25 11:21 36.6 C 68 18 99/63 L 97 Room Air 02/25/25 07:48 36.9 C 105 H 18 121/87 96 Room Air 02/25/25 06:12 82 02/25/25 02:43 36.4 C L 76 16 107/70 96 Room Air Laboratory Results Short CBC 02/25/25 Range/Units 05:35 Hgb 8.8 L (12.0-16.0) g/dL Hct 28.6 L (37.0-47.0) % BMP 02/24/25 02/24/25 02/25/25 14:13 20:55 05:35 Sodium 145 144 146 H Potassium 4.1 4.1 4.1 Chloride 117 H 117 H 119 H Carbon Dioxide 21 20 L 20 L BUN 35 H 37 H 35 H Creatinine 0.97 1.01 1.05 Glucose 151 H 126 H 100 H Calcium 8.2 L 8.3 L 8.2 L
[2025-02-25] MEDS: DEXTROSE 5% 1,000 ML IV ONE (13:43)
[2025-02-25 20:22] LABS: Anion Gap 7.0 (3-11); Blood Urea Nitrogen 36.0 mg/dl (6-23); Calcium 8.4 mg/dl (8.6-10.3); Carbon Dioxide 20.0 mmol/L (21-32); Chloride 117.0 mmol/L (98-107); Creatinine Clr Calc Pharmacy 24.5 ml/min; Glucose 115.0 mg/dl (70-99(Fasting)); Potassium 4.3 mmol/L (3.5-5.1); Sodium 144.0 mmol/L (136-145)
[2025-02-26 07:11] LABS: Anion Gap 8.0 (3-11); Blood Urea Nitrogen 30.0 mg/dl (6-23); Calcium 8.2 mg/dl (8.6-10.3); Carbon Dioxide 21.0 mmol/L (21-32); Chloride 116.0 mmol/L (98-107); Creatinine Clr Calc Pharmacy 30.3 ml/min; Glucose 109.0 mg/dl (70-99(Fasting)); Potassium 3.8 mmol/L (3.5-5.1); Sodium 145.0 mmol/L (136-145)
--- NOTE | 2025-02-26 11:04 | Nephrology Progress Note ---
Date of Service February 26, 2025 Assessment & Plan (1) Hypernatremia: Plan: 2/ poor fluid intake. Na 145 today - Encourage oral fluid 250 q6 - Replace electrolytes as needed. Norvasc, Entresto, furosemide on hold-- BP has been soft Continue Coreg--adjust dose as needed given relatively low blood pressure (2) Adjustment disorder with depressed mood: Plan: Psychiatry on board - f/ recs (3) Congestive heart failure: Plan: Chronic systolic CHF Moderate to severe mitral regurgitation Nonischemic cardiomyopathy Continue Coreg--with holding parameters Monitor volume status closely Resume Lasix as able Plan Renal will sign off. Please call if additional questions or concerns Admission and Anticipated Discharge Date Admission Date: February 20, 2025 Subjective Patient is seen and examined at bedside Denies any chest pain, abdominal pain, nausea, vomiting She didn't eat breakfast Review of Systems 2 Review of Systems: All other systems were reviewed and negative except as noted in HPI Physical Exam 2 Physical Exam: General exam: Appears comfortable, no acute distress HEENT: Pupils are equal and reactive to light Neck: No JVD, neck is supple trachea is midline Respiratory system: Clear breath sounds bilaterally. Gastrointestinal: Abdomen is soft, non distended, non tender, bowel sounds are present CVS: Regular rate and rhythm. No murmurs, rubs or gallops Musculoskeletal: No joint or muscle tenderness Extremities: Non tender, no edema, peripheral pulses are present Neuro: Oriented, no tremors, no focal neurological deficits Skin: No rashes Results & Data Vital Signs (Past 12 Hours) Vital Signs Temp Pulse Pulse Resp BP Pulse Ox O2 Del Method 02/26/25 07:51 36.7 C 83 18 101/73 95 Room Air 02/26/25 07:12 88 02/26/25 02:00 36.3 C L 88 16 114/76 92 Room Air Laboratory Results 02/26/25 06:02 (3) Congestive heart failure Heart failure type: systolic Heart failure chronicity: chronic Qualified Code(s): I50.22 - Chronic systolic (congestive) heart failure
[2025-02-26] MEDS: D5W AND 0.2% NaCL 1,000 ML IV ONE (13:34)
--- NOTE | 2025-02-26 16:40 | Hospitalist Progress Note ---
Date of Service February 26, 2025 Assessment & Plan (1) Acute dehydration: (2) Hypernatremia: (3) Adult failure to thrive syndrome: (4) Hypokalemia: Plan Patient is a 79y/o F with PMHx significant for malignant neoplasm of ovary, prediabetes, HLD, pulmonary hypertension, emphysema, chronic systolic heart failure, CAD, HTN, nonrheumatic mitral valve regurgitation, vitamin D deficiency, GERD, malignant neoplasm of large intestine and rectum, senile osteoporosis, malignant neoplasm of peritoneum, chronic PE anticoagulated on Eliquis, malignant neoplasm of intrapelvic lymph nodes, adjustment disorder with depressed mood, chronic depression with insomnia and hyponatremia/SIADH who presented to the ED via EMS due to inability to care for self. 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 -- Toxicology screen negative --Alcohol level negative Cautious use of IV fluids given CHF Oral intake remains very poor Appreciate psychiatry input Continue sertraline, mirtazapine Appreciate nephrology input PT OT prior to discharge Encourage increase oral intake Monitor BMP closely Sodium level improved to 145 today Will give IV fluids given hypotension, poor oral intake today Severe protein calorie malnutrition Encouraged to increase oral intake Dietitian consulted Hypokalemia Hypomagnesemia Replete and monitor HTN Presented with hypotension Blood pressure low Norvasc, Entresto on hold Will change Coreg to metoprolol Monitor blood pressure closely NSVT/PAT Noted on 02/23/2025 Monitor repeat electrolytes as needed Changed Coreg to metoprolol as above Alcohol use disorder Suspected alcohol withdrawal Was drinking 2.5 beers nightly Last drink 1 week ago prior to admission Continue thiamine Monitor for withdrawal Abnormal UA Ruled out UTI Urine culture--Pasteurella Received IV Rocephin empirically Nodular focus of the basal RLL Also was seen on prior CT thoracic spine from October 2024 --CXR:Emphysema with chronic interstitial coarsening. Chronic pleural- parenchymal scarring of right lung apex. Nodular focus of the basal right lower lobe, also seen on the 10/20/2024 CT thoracic spine. Attention at follow-up recommended in order to exclude pleural metastasis. Needs follow-up as outpatient to exclude pleural metastasis Abnormal thoracic and lumbar CT imaging noted last admission in October 2024 Findings c/f bone lesions, hepatic lesions, pulmonary lesion (as above) Needs f/u with heme/onc on discharge Recent medication noncompliance Has not taken meds for past week due to depression, grief rx Appears pt has been refilling her meds appropriately per ext med record Chronic PE Continue Eliquis Chronic systolic CHF Moderate to severe mitral regurgitation Nonischemic cardiomyopathy Has f/w [facility] cards in the past Most recent TTE, 10/22/24: EF 45-50%, mild concentric LVH, mild global hypokinesis of the LV, grade II DD, mod-severe MR (grossly unchanged from TTE done 07/2023) Currently no signs of volume overload Entresto on hold Continue Coreg--with holding parameters Monitor volume status closely Resume Lasix as able HLD Continue statin GERD Continue Protonix History of bilateral breast cancer S/p surgery and chemoradiation History of metastatic ovarian cancer S/p debulking surgery and chemoradiation Reports intermittent vaginal bleed since surgery Monitor CBC DVT Px: Eliquis Code Status: FULL CODE Disposition: Patient currently lacks medical decision capacity to leave AMA per psych Disposition difficult Case management to help with discharge planning Admission and Anticipated Discharge Date Admission Date: February 20, 2025 Subjective Patient is seen and examined at bedside No new complaints Oral intake remains poor Feels tired Denies any chest pain, abdominal pain, nausea, vomiting Review of Systems Review of Systems: All systems reviewed & are unremarkable except as noted in Subjective Physical Exam Physical Exam: Physical Exam: Vitals signs as noted above General Appearance: Thin, frail, elderly, no apparent distress Head: normocephalic, Atraumatic Eyes: normal inspection, EOMI Neck: supple, Trachea midline Respiratory/Chest: Normal breath sounds, CTA, + port, No accessory muscle use Cardiovascular: S1, S2, No murmur Abdomen/GI:Soft, Non tender, Bowel sounds present Extremities/Musculoskeletal:normal inspection, no edema Neurologic/Psych:AAOX3, grossly no focal neurological deficits Skin: normal color, warm Results & Data Results & Data Vital Signs (Past 12 Hours) Vital Signs Temp Pulse Pulse Resp BP Pulse Ox O2 Del Method 02/26/25 11:25 36.6 C 77 16 87/56 L 92 Room Air 02/26/25 07:51 36.7 C 83 18 101/73 95 Room Air 02/26/25 07:12 88 Laboratory Results [facility] 02/25/25 02/26/25 19:41 06:02 Sodium 144 145 Potassium 4.3 3.8 Chloride 117 H 116 H Carbon Dioxide 20 L 21 BUN 36 H 30 H Creatinine 1.10 0.89 Glucose 115 H 109 H Calcium 8.4 L 8.2 L
[2025-02-26] MEDS: METOPROLOL SUCC 25MG EXT REL TAB PO SCH (20:14)
[2025-02-27 08:20] LABS: Anion Gap 7.0 (3-11); Blood Urea Nitrogen 28.0 mg/dl (6-23); Calcium 8.1 mg/dl (8.6-10.3); Carbon Dioxide 20.0 mmol/L (21-32); Chloride 115.0 mmol/L (98-107); Creatinine Clr Calc Pharmacy 36.0 ml/min; Glucose 94.0 mg/dl (70-99(Fasting)); Potassium 3.8 mmol/L (3.5-5.1); Sodium 142.0 mmol/L (136-145)
--- NOTE | 2025-02-27 14:20 | Hospitalist Progress Note ---
Date of Service February 27, 2025 Assessment & Plan (1) Acute dehydration: (2) Hypernatremia: (3) Adult failure to thrive syndrome: (4) Hypokalemia: Plan Patient is a 79y/o F with PMHx significant for malignant neoplasm of ovary, prediabetes, HLD, pulmonary hypertension, emphysema, chronic systolic heart failure, CAD, HTN, nonrheumatic mitral valve regurgitation, vitamin D deficiency, GERD, malignant neoplasm of large intestine and rectum, senile osteoporosis, malignant neoplasm of peritoneum, chronic PE anticoagulated on Eliquis, malignant neoplasm of intrapelvic lymph nodes, adjustment disorder with depressed mood, chronic depression with insomnia and hyponatremia/SIADH who presented to the ED via EMS due to inability to care for self. 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 -- Toxicology screen negative --Alcohol level negative Cautious use of IV fluids given CHF Poor oral intake oral intake Appreciate psychiatry input Continue sertraline, mirtazapine Appreciate nephrology input Continue PT OT Encourage increase oral intake Monitor BMP closely Sodium level improved to 142 today Plan to discharge to SNF when accepted Severe protein calorie malnutrition Encouraged to increase oral intake Dietitian consulted Hypokalemia Hypomagnesemia Replete and monitor HTN Presented with hypotension Blood pressure low Norvasc, Entresto on hold Coreg changed to metoprolol succinate 25 mg twice a day Blood pressure stable today NSVT/PAT Noted on 02/23/2025 Monitor repeat electrolytes as needed Changed Coreg to metoprolol as above Alcohol use disorder Suspected alcohol withdrawal Was drinking 2.5 beers nightly Last drink 1 week ago prior to admission Continue thiamine Monitor for withdrawal Abnormal UA Ruled out UTI Urine culture--Pasteurella Received IV Rocephin empirically Nodular focus of the basal RLL Also was seen on prior CT thoracic spine from October 2024 --CXR:Emphysema with chronic interstitial coarsening. Chronic pleural- parenchymal scarring of right lung apex. Nodular focus of the basal right lower lobe, also seen on the 10/20/2024 CT thoracic spine. Attention at follow-up recomm ended in order to exclude pleural metastasis. Needs follow-up as outpatient to exclude pleural metastasis Abnormal thoracic and lumbar CT imaging noted last admission in October 2024 Findings c/f bone lesions, hepatic lesions, pulmonary lesion (as above) Needs f/u with heme/onc on discharge Recent medication noncompliance Has not taken meds for past week due to depression, grief rx Appears pt has been refilling her meds appropriately per ext med record Chronic PE Continue Eliquis Chronic systolic CHF Moderate to severe mitral regurgitation Nonischemic cardiomyopathy Has f/w [facility] cards in the past Most recent TTE, 10/22/24: EF 45-50%, mild concentric LVH, mild global hypokinesis of the LV, grade II DD, mod-severe MR (grossly unchanged from TTE done 07/2023) Currently no signs of volume overload Entresto on hold Continue metoprolol Monitor volume status closely Resume Lasix at lower dose HLD Continue statin GERD Continue Protonix History of bilateral breast cancer S/p surgery and chemoradiation History of metastatic ovarian cancer S/p debulking surgery and chemoradiation Reports intermittent vaginal bleed since surgery Monitor CBC DVT Px: Eliquis Code Status: FULL CODE Disposition: Patient currently lacks medical decision capacity to leave AMA per psych Disposition difficult Case management to help with discharge planning Admission and Anticipated Discharge Date Admission Date: February 20, 2025 Subjective Patient is seen and examined at bedside Refused morning medications per RN Offers no complaints this morning Sodium levels improved " I feel lousy" Denies any chest pain, abdominal pain, nausea, vomiting Review of Systems Review of Systems: All systems reviewed & are unremarkable except as noted in Subjective Physical Exam Physical Exam: Physical Exam: Vitals signs as noted above General Appearance: Thin, frail, elderly, no apparent distress Head: normocephalic, Atraumatic Eyes: normal inspection, EOMI Neck: supple, Trachea midline Respiratory/Chest: Normal breath sounds, CTA, + port, No accessory muscle use Cardiovascular: S1, S2, No murmur Abdomen/GI:Soft, Non tender, Bowel sounds present Extremities/Musculoskeletal:normal inspection, no edema Neurologic/Psych:AAOX3, grossly no focal neurological deficits Skin: normal color, warm Results & Data Results & Data Vital Signs (Past 12 Hours) Vital Signs Temp Pulse Resp BP Pulse Ox O2 Del Method O2 Flow Rate 02/27/25 12:15 36.5 C 80 16 122/82 98 Nasal Cannula 2.5 02/27/25 07:50 36.6 C 92 H 20 125/81 97 Nasal Cannula 2.5 02/27/25 07:00 Nasal Cannula 2 02/27/25 02:56 36.7 C 107 H 18 116/82 100 Nasal Cannula 4 Laboratory Results [facility] 02/27/25 07:04 Sodium 142 Potassium 3.8 Chloride 115 H Carbon Dioxide 20 L BUN 28 H Creatinine 0.75 Glucose 94 Calcium 8.1 L
[2025-02-28] MEDS: MAGNESIUM SULFATE / D5W 1 GM/100 ML BAG IV ONE (02:19)
[2025-02-28] MEDS: POTASSIUM CHLORIDE CRTAB 20 MEQ TABCR PO STA (02:24)
[2025-02-28] MEDS: METOPROLOL TARTRATE 25 MG TAB PO STA (03:00)
[2025-02-28] MEDS: POTASSIUM CHLORIDE PWD 20 MEQ PACK PO STA (03:01)
--- NOTE | 2025-02-28 06:09 | Communication Note ---
Date of Service: February 28, 2025 Patient noted to have new yellowish vaginal discharge as per RN. Usual generalized pain as per RN. AP Vaginitis University Professor consult in a.m.
--- NOTE | 2025-02-28 10:07 | OB/GYN Consultation ---
Date of Consultation February 28, 2025 History of Present Illness Reason for Consultation: Vaginal discharge Attending Physician: Rufino Gunn MD History of Present Illness I was called for consult to see this patient for vaginal discharge. She is a 79-year-old G2, P2 postmenopausal female with multiple medical problems and history of ovarian cancer and hysterectomy. She is not a good historian but she tells me that she had everything removed including uterus and ovaries. I reviewed her medical records. I explained to her that I was called to see her for vaginal discharge. She is not aware of vaginal discharge herself and declined pelvic exam. Per medical team she is refusing other treatments and to eat her meals. Please call me back if she continues to have vaginal discharge and if she decides to have pelvic exam. Allergies Allergy/AdvReac Type Severity Reaction Status Date / Time diphenhydramine Allergy Severe Difficulty Verified 10/20/24 17:47 [From Benadryl] Breathing doxorubicin Allergy Severe CHEMO Verified 10/20/24 17:47 DRUG--UNKNOWN house dust Allergy Intermediate CONGESTION-ODORS, Verified 10/20/24 17:47 FUMES, DUST Home Medications Medication Instructions Recorded Confirmed Type atorvastatin 10 mg tablet (Lipitor) 10 mg PO HS 09/22/19 02/20/25 History cyanocobalamin (vitamin B-12) 500 1,000 mcg PO DAILY 07/23/21 02/20/25 History mcg tablet (Vitamin B-12) apixaban 5 mg tablet (Eliquis) 5 mg PO BID 12/05/21 02/20/25 History amlodipine 5 mg tablet (Norvasc) 5 mg PO QAM 30 days #30 tabs 03/16/23 02/20/25 Rx carvedilol 12.5 mg tablet 37.5 mg (3 x 12.5 mg) PO BID 30 03/23/24 02/20/25 Rx days #540 tabs cholecalciferol (vitamin D3) 25 25 mcg PO DAILY 10/20/24 02/20/25 History mcg (1,000 unit) capsule (Vitamin D3) denosumab 60 mg/mL subcutaneous 60 mg subcut DIRECTED 10/20/24 02/20/25 History syringe (Prolia) docusate sodium 100 mg capsule 100 mg PO BID 10/20/24 02/20/25 History melatonin 3 mg-chamomile flower 1 tab PO HS 10/20/24 02/20/25 History 500 mcg tablet pantoprazole 40 mg tablet,delayed 40 mg PO BID 10/20/24 02/20/25 History release furosemide 40 mg tablet (Lasix) 40 mg PO BID #60 tabs 10/31/24 02/20/25 Rx magnesium chloride 64 mg 64 mg PO TID #90 tabs 10/31/24 02/20/25 Rx (magnesium chloride) tablet,delayed release (Mag-Delay) potassium chloride 20 mEq 20 meq PO TID 90 days #180 tabs 10/31/24 02/20/25 Rx tablet,extended release sacubitril 97 mg-valsartan 103 mg 1 tab PO BID #180 tabs 11/14/24 02/20/25 Rx tablet (Entresto) mirtazapine 15 mg tablet 15 mg PO HS 02/20/25 02/20/25 History Patient History Medical History Arthritis Limb alert care status RUE History of uterine fibroid Degenerative disc disease Spinal stenosis Chronic back pain Osteoarthritis Osteoporosis History of kidney stones History of gastric ulcer History of breast cancer Rt - 17 years ago - S/p Rt mastectomy, chemo + radiation, Lt - 2018 - s/p lumpectomy x 2, raidation 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 followed with physical therapy. History of depression Valvular heart disease follows with [facility] [place] [facility] Shabazz; moderate MR, mild global hypokinesis LV, RVSP 40-50mmHg Malignant neoplasm of central portion of left breast in female, estrogen r eceptor negative 2016 Surgical History Port-A-Cath in place (06/09/21) Insertion of Access Port with Fluoroscopy(Left) - Amador Archibald DO, FACS 06/09/2021 H/O: hysterectomy H/O knee surgery left knee reconstruction Status post correction of deviated nasal septum History of tooth extraction History of foot surgery BL History of lumpectomy of left breast x 2 2019 Hx of right mastectomy with lymph node removal 1991 History of breast biopsy Family History Father Esophageal cancer Social History Smoking Status: Former smoker Tobacco Type: Cigarettes Second Hand Exposure: No; Do You Dip or Chew Tobacco: No; Hx Alcohol Use: Yes Alcohol type: beer Hx Substance Use: No Preferred Language: Yakut Communication Ability: Effective 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 Making Supervisor Required: No Beliefs That Will Affect Care: None Current Living Situation: Alone Current Living Situation Comment: Lives independently at [facility] Other Information That Helps Us Care for You: No Feels Safe at Home: Yes Assistive Devices: Cane Physical Exam Constitutional: WD/WN, vitals as above + ill appearing, + cachectic and + malnourished Results & Data Vital Signs (Past 12 Hours) Vital Signs Temp Pulse Pulse Resp BP Pulse Ox O2 Del Method 02/28/25 08:00 82 02/28/25 07:47 36.6 C 82 16 113/73 98 Nasal Cannula 02/28/25 02:46 36.7 C 84 16 110/73 96 Nasal Cannula 02/27/25 23:17 36.5 C 89 18 116/73 98 Nasal Cannula O2 Flow Rate 02/28/25 08:00 02/28/25 07:47 2.5 02/28/25 02:46 2.5 02/27/25 23:17 2.5
[2025-02-28] MEDS: THIAMINE HCL 100 MG TAB PO SCH (11:34)
[2025-02-28 11:43] LABS: Hematocrit (blood only) 27.5 % (37.0-47.0); Hemoglobin 8.7 g/dL (12.0-16.0); Mean Corpuscular Hemoglobin 28.6 pg (25.0-34.0); Mean Corpuscular Volume 90.5 fL (80.0-100.0); Platelet Count 315 K/uL (130-400); RDW Standard Deviation 48.2 fL (36.4-46.3); Red Blood Count 3.04 M/uL (4.20-5.40); White Blood Count 11.50 K/ul (4.8-10.8)
[2025-02-28 11:59] LABS: Magnesium 2.0 mg/dl (1.7-2.4)
[2025-02-28 12:00] LABS: Anion Gap 9.0 (3-11); Blood Urea Nitrogen 27.0 mg/dl (6-23); Calcium 8.5 mg/dl (8.6-10.3); Carbon Dioxide 19.0 mmol/L (21-32); Chloride 116.0 mmol/L (98-107); Creatinine Clr Calc Pharmacy 39.7 ml/min; Glucose 81.0 mg/dl (70-99(Fasting)); Potassium 4.1 mmol/L (3.5-5.1); Sodium 144.0 mmol/L (136-145)
--- NOTE | 2025-02-28 12:02 | Hospitalist Progress Note ---
Date of Service February 28, 2025 Assessment & Plan (1) Acute dehydration: (2) Hypernatremia: (3) Adult failure to thrive syndrome: (4) Hypokalemia: Plan Per previous provider: Patient is a 79y/o F with PMHx significant for malignant neoplasm of ovary, prediabetes, HLD, pulmonary hypertension, emphysema, chronic systolic heart failure, CAD, HTN, nonrheumatic mitral valve regurgitation, vitamin D deficiency, GERD, malignant neoplasm of large intestine and rectum, senile osteoporosis, malignant neoplasm of peritoneum, chronic PE anticoagulated on Eliquis, malignant neoplasm of intrapelvic lymph nodes, adjustment disorder with depressed mood, chronic depression with insomnia and hyponatremia/SIADH who presented to the ED via EMS due to inability to care for self. 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 -- Toxicology screen negative --Alcohol level negative Cautious use of IV fluids given CHF Poor oral intake oral intake Appreciate psychiatry input Continue sertraline, mirtazapine Appreciate nephrology input Continue PT OT Encourage increase oral intake Monitor BMP closely Sodium level improved to 142 on 02/27, currently 144 Plan to discharge to SNF when accepted Severe protein calorie malnutrition Encouraged to increase oral intake Dietitian consulted Hypokalemia Hypomagnesemia Replete and monitor HTN Presented with hypotension Blood pressure low Norvasc, Entresto on hold Coreg changed to metoprolol succinate 25 mg twice a day Blood pressure stable today NSVT/PAT Noted on 02/23/2025 Monitor repeat electrolytes as needed Changed Coreg to metoprolol as above Alcohol use disorder Suspected alcohol withdrawal Was drinking 2.5 beers nightly Last drink 1 week ago prior to admission Continue thiamine Monitor for withdrawal Abnormal UA Ruled out UTI Urine culture--Pasteurella Received IV Rocephin empirically Nodular focus of the basal RLL Also was seen on prior CT thoracic spine from October 2024 --CXR:Emphysema with chronic interstitial coarsening. Chronic pleural- parenchymal scarring of right lung apex. Nodular focus of the basal right lower lobe, also seen on the 10/20/2024 CT thoracic spine. Attention at follow-up recommended in order to exclude pleural metastasis. Needs follow-up as outpatient to exclude pleural metastasis Abnormal thoracic and lumbar CT imaging noted last admission in October 2024 Findings c/f bone lesions, hepatic lesions, pulmonary lesion (as above) Needs f/u with heme/onc on discharge Recent medication noncompliance Has not taken meds for past week due to depression, grief rx Appears pt has been refilling her meds appropriately per ext med record Chronic PE Continue Eliquis Chronic systolic CHF Moderate to severe mitral regurgitation Nonischemic cardiomyopathy Has f/w [facility] cards in the past Most recent TTE, 10/22/24: EF 45-50%, mild concentric LVH, mild global hypokinesis of the LV, grade II DD, mod-severe MR (grossly unchanged from TTE done 07/2023) Currently no signs of volume overload Entresto on hold Continue metoprolol Monitor volume status closely Resume Lasix at lower dose HLD Continue statin GERD Continue Protonix History of bilateral breast cancer S/p surgery and chemoradiation History of metastatic ovarian cancer S/p debulking surgery and chemoradiation Reports intermittent vaginal bleed since surgery Monitor CBC DVT Px: Eliquis Code Status: FULL CODE Disposition: Patient currently lacks medical decision capacity to leave AMA per psych Disposition difficult Case management to help with discharge planning Admission and Anticipated Discharge Date Admission Date: February 20, 2025 Subjective Patient seen in follow up Discussed w/ RN - pt has very poor oral intake Pt was seen by psych and by nephrology Overnight concern for vaginal discharge and mail clerks supervisor consulted Pt seen lying in bed in NAD, pt reports not feeling well but does not explain further, says that her cat Offers no complaints this morning Sodium levels improved Denies any chest pain, abdominal pain, nausea, vomiting Per RN pt not moving out of bed, uses dependants Review of Systems Review of Systems: All systems reviewed & are unremarkable except as noted in Subjective Physical Exam Physical Exam: General Appearance: Thin, frail, elderly, no apparent distress Head: normocephalic, Atraumatic Eyes: normal inspection, EOMI Neck: supple Respiratory/Chest: Normal breath sounds, CTA, + port, No accessory muscle use Cardiovascular: S1, S2, No murmur Abdomen/GI:Soft, Non tender, Bowel sounds present Extremities/Musculoskeletal:normal inspection, no edema Neurologic/Psych:AAOX3, grossly no focal neurological deficits Skin: normal color, warm Results & Data Results & Data Vital Signs (Past 12 Hours) Vital Signs Temp Pulse Pulse Resp BP Pulse Ox O2 Del Method 02/28/25 11:39 36.5 C 87 16 107/69 97 Nasal Cannula 02/28/25 08:00 82 02/28/25 07:47 36.6 C 82 16 113/73 98 Nasal Cannula 02/28/25 02:46 36.7 C 84 16 110/73 96 Nasal Cannula O2 Flow Rate 02/28/25 11:39 2.5 02/28/25 08:00 02/28/25 07:47 2.5 02/28/25 02:46 2.5 Laboratory Results 02/28/25 Range/Units 11:12 WBC 11.50 H (4.8-10.8) K/ul RBC 3.04 L (4.20-5.40) M/uL Hgb 8.7 L (12.0-16.0) g/dL Hct 27.5 L (37.0-47.0) % MCV 90.5 (80.0-100.0) fL MCH 28.6 (25.0-34.0) pg MCHC 31.6 L (32.0-36.0) g/dL RDW Std Deviation 48.2 H (36.4-46.3) fL RDW Coeff of Cain 14.8 H (11.5-14.5) % Plt Count 315 (130-400) K/uL MPV 9.9 (9.4-12.4) fL Sodium Pending Potassium Pending Chloride Pending Carbon Dioxide Pending Anion Gap Pending BUN Pending Creatinine Pending Est Cr Clr Drug Dosing Pending eGFR Pending BUN/Creatinine Ratio Pending Glucose Pending Calcium Pending Phosphorus Pending Magnesium Pending Medications Administered Current Inpatient Medications Acetaminophen (Acetaminophen 325 Mg Tab) 650 mg PO Q4H PRN PRN Reason: Pain or Fever Stop: 03/22/25 15:33 Last Admin: 02/27/25 09:27 Dose: 650 mg Apixaban (Apixaban 5 Mg Tablet) 5 mg PO BID [facility] Stop: 03/22/25 14:04 Last Admin: 02/28/25 11:34 Dose: 5 mg Atorvastatin Calcium (Atorvastatin 10 Mg Tab) 10 mg PO HS [facility] Stop: 03/22/25 20:59 Last Admin: 02/27/25 20:39 Dose: Not Given Carvedilol (Carvedilol 12.5 Mg Tab) 12.5 mg PO BID [facility] Stop: 03/25/25 20:59 Last Admin: 02/26/25 07:53 Dose: 12.5 mg Cyanocobalamin (Cyanocobalamin (B-12) 500 Mcg Tablet) 1,000 mcg PO DAILY [facility] Stop: 03/23/25 08:59 Last Admin: 02/28/25 11:36 Dose: 1,000 mcg Diclofenac Sodium (Diclofenac Sod 1% Gel 100 Gm Tube) 2 gm EXT Q6H PRN; Protocol PRN Reason: leg pain Stop: 03/25/25 04:51 Last Admin: 02/24/25 05:59 Dose: 2 gm Docusate Sodium (Docusate Sodium 100 Mg Cap) 100 mg PO BID [facility] Stop: 03/22/25 20:59 Last Admin: 02/28/25 11:34 Dose: 100 mg Furosemide (Furosemide 20 Mg Tab) 20 mg PO BID17 [facility] Stop: 03/25/25 08:59 Last Admin: 02/28/25 11:37 Dose: 20 mg Heparin Sodium (Porcine) (Heparin 100 Unit/Ml 5ml Flush) 5 ml FLUSH PRN PRN PRN Reason: Flush Stop: 03/23/25 05:53 Last Admin: 02/22/25 20:21 Dose: 5 ml Lactobacillus Acidophilus (Advanced Probiotic 625 Mg Capsule) 1,250 mg PO DAILY [facility] Stop: 03/24/25 15:29 Last Admin: 02/28/25 11:31 Dose: 1,250 mg Magnesium Chloride (Magnesium Chloride W/Calcium 64mg Delayed Rel Tab) 64 mg PO TID [facility] Stop: 03/22/25 20:59 Last Admin: 02/28/25 11:34 Dose: 64 mg Magnesium Hydroxide (Magnesium Hydroxide Susp 30 Ml Udc) 30 ml PO Q12H PRN PRN Reason: Constipation Stop: 03/22/25 15:33 Melatonin (Melatonin 3 Mg Tab) 3 mg PO HS PRN PRN Reason: Sleep Stop: 03/22/25 19:30 Last Admin: 02/27/25 20:37 Dose: 3 mg Metoprolol Succinate (Metoprolol Succ 25mg Ext Rel Tab) 25 mg PO BID [facility] Stop: 03/28/25 20:59 Last Admin: 02/28/25 11:31 Dose: 25 mg Mirtazapine (Mirtazapine Tab 15 Mg Tab) 7.5 mg PO HS [facility] Stop: 03/23/25 20:59 Last Admin: 02/27/25 20:37 Dose: 7.5 mg Ondansetron HCl (Ondansetron Inj 2 Mg/Ml 2 Ml Vial) 4 mg IV Q6H PRN PRN Reason: Nausea Stop: 03/22/25 15:33 Pantoprazole Sodium (Pantoprazole 40 Mg Tab) 40 mg PO BID [facility] Stop: 03/22/25 20:59 Last Admin: 02/28/25 11:33 Dose: 40 mg Polyethylene Glycol (Polyethylene (Miralax) 17 Gm Pack) 17 gm PO DAILY PRN PRN Reason: Constipation Stop: 03/22/25 15:33 Sertraline HCl (Sertraline Hcl 50 Mg Tablet) 25 mg PO QAM [facility] Stop: 03/23/25 12:44 Last Admin: 02/28/25 11:33 Dose: 25 mg Thiamine HCl (Thiamine Hcl 100 Mg Tab) 100 mg PO QAM [facility] Stop: 03/30/25 08:59 Last Admin: 02/28/25 11:34 Dose: 100 mg Vitamin D (Cholecalciferol 25 Mcg (1000 Units) Tab) 25 mcg PO DAILY [facility] Stop: 03/23/25 08:59 Last Admin: 02/28/25 11:39 Dose: 25 mcg
[2025-03-01 08:20] LABS: Hematocrit (blood only) 29.1 % (37.0-47.0); Hemoglobin 9.0 g/dL (12.0-16.0); Mean Corpuscular Hemoglobin 28.1 pg (25.0-34.0); Mean Corpuscular Volume 90.9 fL (80.0-100.0); Platelet Count 351 K/uL (130-400); RDW Standard Deviation 48.4 fL (36.4-46.3); Red Blood Count 3.20 M/uL (4.20-5.40); White Blood Count 12.09 K/ul (4.8-10.8)
[2025-03-01 08:37] LABS: Anion Gap 10.0 (3-11); Blood Urea Nitrogen 29.0 mg/dl (6-23); Calcium 8.4 mg/dl (8.6-10.3); Carbon Dioxide 19.0 mmol/L (21-32); Chloride 115.0 mmol/L (98-107); Creatinine Clr Calc Pharmacy 34.6 ml/min; Glucose 81.0 mg/dl (70-99(Fasting)); Magnesium 1.9 mg/dl (1.7-2.4); Potassium 4.1 mmol/L (3.5-5.1); Sodium 144.0 mmol/L (136-145)
[2025-03-01] MEDS: MAGNESIUM SULFATE / D5W 1 GM/100 ML BAG IV ONE (10:13)
--- NOTE | 2025-03-01 10:49 | Hospitalist Progress Note ---
Date of Service March 01, 2025 Assessment & Plan (1) Acute dehydration: (2) Hypernatremia: (3) Adult failure to thrive syndrome: (4) Hypokalemia: Plan Per previous provider w/ addendum: Patient is a 79y/o F with PMHx significant for malignant neoplasm of ovary, prediabetes, HLD, pulmonary hypertension, emphysema, chronic systolic heart failure, CAD, HTN, nonrheumatic mitral valve regurgitation, vitamin D deficiency, GERD, malignant neoplasm of large intestine and rectum, senile osteoporosis, malignant neoplasm of peritoneum, chronic PE anticoagulated on Eliquis, malignant neoplasm of intrapelvic lymph nodes, adjustment disorder with depressed mood, chronic depression with insomnia and hyponatremia/SIADH who presented to the ED via EMS due to inability to care for self. 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 -- Toxicology screen negative --Alcohol level negative Cautious use of IV fluids given CHF Poor oral intake Appreciate psychiatry input Continue sertraline, mirtazapine Appreciate nephrology input Continue PT OT Encourage increase oral intake Monitor BMP closely Sodium level improved to 142 on 02/27, currently 144 Plan to discharge to SNF when accepted Severe protein calorie malnutrition Encouraged to increase oral intake Dietitian consulted Hypokalemia Hypomagnesemia Replete and monitor HTN Presented with hypotension Blood pressure on lower side Norvasc, Entresto on hold Coreg changed to metoprolol succinate 25 mg twice a day Blood pressure stable today NSVT/PAT Noted on 02/23/2025 Monitor repeat electrolytes as needed Changed Coreg to metoprolol as above Alcohol use disorder Suspected alcohol withdrawal Was drinking 2.5 beers nightly Last drink 1 week ago prior to admission Continue thiamine Monitor for withdrawal Abnormal UA Ruled out UTI Urine culture--Pasteurella Received IV Rocephin empirically Nodular focus of the basal RLL Also was seen on prior CT thoracic spine from October 2024 --CXR:Emphysema with chronic interstitial coarsening. Chronic pleural- parenchymal scarring of right lung apex. Nodular focus of the basal right lower lobe, also seen on the 10/20/2024 CT thoracic spine. Attention at follow-up recommended in order to exclude pleural metastasis. Needs follow-up as outpatient to exclude pleural metastasis Abnormal thoracic and lumbar CT imaging noted last admission in October 2024 Findings c/f bone lesions, hepatic lesions, pulmonary lesion (as above) Needs f/u with heme/onc on discharge Recent medication noncompliance Has not taken meds for past week due to depression, grief rx Appears pt has been refilling her meds appropriately per ext med record Chronic PE Continue Eliquis Chronic systolic CHF Moderate to severe mitral regurgitation Nonischemic cardiomyopathy Has f/w [facility] cards in the past Most recent TTE, 10/22/24: EF 45-50%, mild concentric LVH, mild global hypokinesis of the LV, grade II DD, mod-severe MR (grossly unchanged from TTE done 07/2023) Currently no signs of volume overload Entresto on hold Continue metoprolol Monitor volume status closely Resume Lasix at lower dose HLD Continue statin GERD Continue Protonix History of bilateral breast cancer S/p surgery and chemoradiation History of metastatic ovarian cancer S/p debulking surgery and chemoradiation Reports intermittent vaginal bleed since surgery Monitor CBC DVT Px: Eliquis Code Status:FULL CODE Disposition: Patient currently lacks medical decision capacity to leave AMA per psych Disposition difficult Case management to help with discharge planning Admission and Anticipated Discharge Date Admission Date: February 20, 2025 Subjective Patient seen in follow up Yesterday RN was able to shower the pt and encouraged PO intake/ orange juice. Pt has overall very poor oral intake. Discussed again with RN today - need to drink water every couple of hours. Pt was seen by psych and by nephrology previous concern for vaginal discharge and ham sawyer consulted, pt declined pelvic exam, vag. culture sent Pt seen lying in bed in NAD, pt reports feeling tired well but able to communicate. Reports poor oral intake since her cat . CM involved in contacting POAs. Offers no other complaints this morning Sodium level 144 Denies any chest pain, abdominal pain, nausea, vomiting Per RN pt not moving much out of bed, uses dependants Review of Systems Review of Systems: All systems reviewed & are unremarkable except as noted in Subjective Physical Exam Physical Exam: General Appearance: Thin, frail, elderly, no apparent distress Head: normocephalic, Atraumatic Eyes: normal inspection, EOMI Neck: supple Respiratory/Chest: Normal breath sounds, CTA, + port, No accessory muscle use Cardiovascular: S1, S2, No murmur Abdomen/GI:Soft, Non tender, Bowel sounds present Extremities/Musculoskeletal:normal inspection, no edema Neurologic/Psych:AAOX3, grossly no focal neurological deficits Skin: normal color, warm Results & Data Results & Data Vital Signs (Past 12 Hours) Vital Signs Temp Pulse Pulse Resp BP Pulse Ox O2 Del Method 03/01/25 08:08 36.7 C 86 16 119/92 95 Room Air 03/01/25 07:25 83 03/01/25 03:41 36.5 C 71 20 108/76 96 Room Air 02/28/25 23:19 36.5 C 83 20 110/74 93 Room Air Laboratory Results 03/01/25 02/28/25 Range/Units 07:50 11:12 WBC 12.09 H 11.50 H (4.8-10.8) K/ul RBC 3.20 L 3.04 L (4.20-5.40) M/uL Hgb 9.0 L 8.7 L (12.0-16.0) g/dL Hct 29.1 L 27.5 L (37.0-47.0) % MCV 90.9 90.5 (80.0-100.0) fL MCH 28.1 28.6 (25.0-34.0) pg MCHC 30.9 L 31.6 L (32.0-36.0) g/dL RDW Std Deviation 48.4 H 48.2 H (36.4-46.3) fL RDW Coeff of Cain 14.7 H 14.8 H (11.5-14.5) % Plt Count 351 315 (130-400) K/uL MPV 10.3 9.9 (9.4-12.4) fL Sodium 144 144 (136-145) mmol/L Potassium 4.1 4.1 (3.5-5.1) mmol/L Chloride 115 H 116 H (98-107) mmol/L Carbon Dioxide 19 L 19 L (21-32) mmol/L Anion Gap 10 9 (3-11) BUN 29 H 27 H (6-23) mg/dl Creatinine 0.78 0.68 (0.6-1.2) mg/dl Est Cr Clr Drug Dosing 34.6 39.7 ml/min eGFR 78.18 89.64 BUN/Creatinine Ratio 37.2 H 39.7 H (10-20) Glucose 81 81 (70-99(Fasting)) mg/dl Calcium 8.4 L 8.5 L (8.6-10.3) mg/dl Phosphorus 3.7 4.0 (2.5-4.9) mg/dl Magnesium 1.9 2.0 (1.7-2.4) mg/dl Medications Administered Current Inpatient Medications Acetaminophen (Acetaminophen 325 Mg Tab) 650 mg PO Q4H PRN PRN Reason: Pain or Fever Stop: 03/22/25 15:33 Last Admin: 02/27/25 09:27 Dose: 650 mg Apixaban (Apixaban 5 Mg Tablet) 5 mg PO BID [facility] Stop: 03/22/25 14:04 Last Admin: 03/01/25 10:04 Dose: 5 mg Atorvastatin Calcium (Atorvastatin 10 Mg Tab) 10 mg PO HS [facility] Stop: 03/22/25 20:59 Last Admin: 02/28/25 19:54 Dose: 10 mg Carvedilol (Carvedilol 12.5 Mg Tab) 12.5 mg PO BID [facility] Stop: 03/25/25 20:59 Last Admin: 02/26/25 07:53 Dose: 12.5 mg Cyanocobalamin (Cyanocobalamin (B-12) 500 Mcg Tablet) 1,000 mcg PO DAILY [facility] Stop: 03/23/25 08:59 Last Admin: 03/01/25 10:04 Dose: 1,000 mcg Diclofenac Sodium (Diclofenac Sod 1% Gel 100 Gm Tube) 2 gm EXT Q6H PRN; Protocol PRN Reason: leg pain Stop: 03/25/25 04:51 Last Admin: 02/24/25 05:59 Dose: 2 gm Docusate Sodium (Docusate Sodium 100 Mg Cap) 100 mg PO BID [facility] Stop: 03/22/25 20:59 Last Admin: 03/01/25 10:07 Dose: Not Given Furosemide (Furosemide 20 Mg Tab) 20 mg PO BID17 [facility] Stop: 03/25/25 08:59 Last Admin: 03/01/25 10:04 Dose: 20 mg Heparin Sodium (Porcine) (Heparin 100 Unit/Ml 5ml Flush) 5 ml FLUSH PRN PRN PRN Reason: Flush Stop: 03/23/25 05:53 Last Admin: 03/01/25 08:45 Dose: 5 ml Magnesium Sulfate/Dextrose (Magnesium Sulfate / D5w) 1 gm in 100 mls @ 50 mls/hr IV ONE ONE Stop: 03/01/25 11:42 Last Admin: 03/01/25 10:13 Dose: 50 mls/hr Lactobacillus Acidophilus (Advanced Probiotic 625 Mg Capsule) 1,250 mg PO DAILY [facility] Stop: 03/24/25 15:29 Last Admin: 03/01/25 10:05 Dose: 1,250 mg Magnesium Chloride (Magnesium Chloride W/Calcium 64mg Delayed Rel Tab) 64 mg PO TID [facility] Stop: 03/22/25 20:59 Last Admin: 03/01/25 10:03 Dose: 64 mg Magnesium Hydroxide (Magnesium Hydroxide Susp 30 Ml Udc) 30 ml PO Q12H PRN PRN Reason: Constipation Stop: 03/22/25 15:33 Melatonin (Melatonin 3 Mg Tab) 3 mg PO HS PRN PRN Reason: Sleep Stop: 03/22/25 19:30 Last Admin: 02/27/25 20:37 Dose: 3 mg Metoprolol Succinate (Metoprolol Succ 25mg Ext Rel Tab) 25 mg PO BID [facility] Stop: 03/28/25 20:59 Last Admin: 03/01/25 10:05 Dose: 25 mg Mirtazapine (Mirtazapine Tab 15 Mg Tab) 7.5 mg PO HS [facility] Stop: 03/23/25 20:59 Last Admin: 02/28/25 19:49 Dose: 7.5 mg Ondansetron HCl (Ondansetron Inj 2 Mg/Ml 2 Ml Vial) 4 mg IV Q6H PRN PRN Reason: Nausea Stop: 03/22/25 15:33 Pantoprazole Sodium (Pantoprazole 40 Mg Tab) 40 mg PO BID [facility] Stop: 03/22/25 20:59 Last Admin: 03/01/25 10:04 Dose: 40 mg Polyethylene Glycol (Polyethylene (Miralax) 17 Gm Pack) 17 gm PO DAILY PRN PRN Reason: Constipation Stop: 03/22/25 15:33 Sertraline HCl (Sertraline Hcl 50 Mg Tablet) 25 mg PO QAM [facility] Stop: 03/23/25 12:44 Last Admin: 03/01/25 10:05 Dose: 25 mg Thiamine HCl (Thiamine Hcl 100 Mg Tab) 100 mg PO QAM [facility] Stop: 03/30/25 08:59 Last Admin: 03/01/25 10:04 Dose: 100 mg Vitamin D (Cholecalciferol 25 Mcg (1000 Units) Tab) 25 mcg PO DAILY [facility] Stop: 03/23/25 08:59 Last Admin: 03/01/25 10:04 Dose: 25 mcg
[2025-03-01] MEDS: SODIUM CHLORIDE 0.9% 500 ML IV ONE (16:58)
--- NOTE | 2025-03-01 17:51 | Gynecologic Progress Note ---
Date of Service March 01, 2025 Assessment & Plan Admission and Anticipated Discharge Date Admission Date: February 20, 2025 Subjective I was called by medical team that patient is more cooperative today and agrees with pelvic exam. Her night nurse collected genital culture or swab from outside? Is positive for Enterobacter. No clue cells, no signs of bacterial vaginosis nor Shira were seen. I went to her room with her nurse and ask whether she agrees with pelvic exam and she agreed. she was placed on her back with her pillow folded and placed under her buttocks to elevate perineum from the bed. On inspection vulva labia appear to be atrophic which is physiologic due to long postmenopausal state. Unable to insert the speculum due to narrow small vagina. external genitalia including perianal skin were covered with yellow stool like discharge. 1 finger digital Exam was performed by myself vagina felt to be stenotic and scarred with sutures or? Status post radiation therapy for cancer. Q-tip was placed in the vagina and obtained culture from the discharge. I think discharge is most likely incontinent white stool covering wall 1 genital area. Plan per medical team. if culture results are still positive for stool emily I would recommend consulting infectious disease whether she will need treatment. Results & Data Vital Signs (Past 12 Hours) Vital Signs Temp Pulse Pulse Resp BP Pulse Ox O2 Del Method 03/01/25 16:14 36.7 C 65 18 94/64 L 92 Room Air 03/01/25 16:03 81 03/01/25 08:08 36.7 C 86 16 119/92 95 Room Air 03/01/25 07:25 83
--- NOTE | 2025-03-02 09:32 | Hospitalist Progress Note ---
Date of Service March 02, 2025 Assessment & Plan (1) Acute dehydration: (2) Hypernatremia: (3) Adult failure to thrive syndrome: (4) Hypokalemia: Plan Per previous provider w/ addendum: Patient is a 79y/o F with PMHx significant for malignant neoplasm of ovary, prediabetes, HLD, pulmonary hypertension, emphysema, chronic systolic heart failure, CAD, HTN, nonrheumatic mitral valve regurgitation, vitamin D deficiency, GERD, malignant neoplasm of large intestine and rectum, senile osteoporosis, malignant neoplasm of peritoneum, chronic PE anticoagulated on Eliquis, malignant neoplasm of intrapelvic lymph nodes, adjustment disorder with depressed mood, chronic depression with insomnia and hyponatremia/SIADH who presented to the ED via EMS due to inability to care for self. 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 -- Toxicology screen negative --Alcohol level negative Cautious use of IV fluids given CHF Poor oral intake Appreciate psychiatry input Continue sertraline, mirtazapine Appreciate nephrology input Continue PT OT Encourage increase oral intake Monitor BMP closely Sodium level stable at 144 Plan to discharge to SNF when accepted Severe protein calorie malnutrition Encouraged to increase oral intake Dietitian consulted Hypokalemia Hypomagnesemia Replete and monitor HTN Presented with hypotension Blood pressure on lower side Norvasc, Entresto on hold Coreg changed to metoprolol succinate 12.5 mg twice a day NSVT/PAT Noted on 02/23/2025 Monitor repeat electrolytes as needed Changed Coreg to metoprolol as above Alcohol use disorder Suspected alcohol withdrawal Was drinking 2.5 beers nightly Last drink 1 week ago prior to admission Continue thiamine Monitor for withdrawal Abnormal UA Ruled out UTI Urine culture--Pasteurella Received IV Rocephin empirically Nodular focus of the basal RLL Also was seen on prior CT thoracic spine from October 2024 --CXR:Emphysema with chronic interstitial coarsening. Chronic pleural- parenchymal scarring of right lung apex. Nodular focus of the basal right lower lobe, also seen on the 10/20/2024 CT thoracic spine. Attention at follow-up recommended in order to exclude pleural metastasis. Needs follow-up as outpatient to exclude pleural metastasis Abnormal thoracic and lumbar CT imaging noted last admission in October 2024 Findings c/f bone lesions, hepatic lesions, pulmonary lesion (as above) Needs f/u with heme/onc on discharge Recent medication noncompliance Has not taken meds for past week due to depression, grief rx Appears pt has been refilling her meds appropriately per ext med record Chronic PE Continue Eliquis Chronic systolic CHF Moderate to severe mitral regurgitation Nonischemic cardiomyopathy Has f/w [facility] cards in the past Most recent TTE, 10/22/24: EF 45-50%, mild concentric LVH, mild global hypokinesis of the LV, grade II DD, mod-severe MR (grossly unchanged from TTE done 07/2023) Currently no signs of volume overload Entresto on hold Continue metoprolol Monitor volume status closely Resumed Lasix at lower dose , however poor oral intake and BP low, will hold HLD Continue statin GERD Continue Protonix History of bilateral breast cancer S/p surgery and chemoradiation History of metastatic ovarian cancer S/p debulking surgery and chemoradiation Reports intermittent vaginal bleed since surgery Monitor CBC DVT Px: Eliquis Code Status:FULL CODE Disposition: Patient currently lacks medical decision capacity to leave AMA per psych Disposition difficult Case management to help with discharge planning Admission and Anticipated Discharge Date Admission Date: February 20, 2025 Subjective Patient seen in follow up Pt seen today ambulating from bathroom to chair with help Discussed again with staff today - need to drink water every couple of hours. Pt was seen by psych and by nephrology previous concern for vaginal discharge and operations management professionals consulted, pt initially declined pelvic exam, then was ok with it yesterday, vag. culture sent + poor oral intake since her cat . CM involved in contacting POAs. Offers no other complaints this morning Sodium level 144 Denies any chest pain, abdominal pain, nausea, vomiting Review of Systems Review of Systems: All systems reviewed & are unremarkable except as noted in Subjective Physical Exam 2 Physical Exam: General Appearance: Thin, frail, elderly, no apparent distress Head: normocephalic, Atraumatic Eyes: normal inspection, EOMI Neck: supple Respiratory/Chest: Normal breath sounds, CTA, + port, No accessory muscle use Cardiovascular: S1, S2, No murmur Abdomen/GI:Soft, Non tender, Bowel sounds present Extremities/Musculoskeletal:normal inspection, no edema Neurologic/Psych:AAOX3, grossly no focal neurological deficits Skin: normal color, warm Results & Data Results & Data Vital Signs (Past 12 Hours) Vital Signs Temp Pulse Pulse Resp BP Pulse Ox O2 Del Method 03/02/25 07:53 36.4 C L 79 16 99/70 L 91 Room Air 03/02/25 01:38 36.4 C L 75 18 108/66 100 Nasal Cannula 03/01/25 22:41 36.3 C L 77 16 97/65 L 98 Nasal Cannula 03/01/25 22:07 78 O2 Flow Rate 03/02/25 07:53 03/02/25 01:38 2 03/01/25 22:41 2 03/01/25 22:07 Laboratory Results 03/02/25 02/28/25 Range/Units 10:24 14:05 WBC 9.93 (4.8-10.8) K/ul RBC 3.18 L (4.20-5.40) M/uL Hgb 8.9 L (12.0-16.0) g/dL Hct 28.6 L (37.0-47.0) % MCV 89.9 (80.0-100.0) fL MCH 28.0 (25.0-34.0) pg MCHC 31.1 L (32.0-36.0) g/dL RDW Std Deviation 48.7 H (36.4-46.3) fL RDW Coeff of Cain 14.7 H (11.5-14.5) % Plt Count 354 (130-400) K/uL MPV 10.0 (9.4-12.4) fL Sodium 144 (136-145) mmol/L Potassium 3.5 (3.5-5.1) mmol/L Chloride 115 H (98-107) mmol/L Carbon Dioxide 18 L (21-32) mmol/L Anion Gap 11 (3-11) BUN 35 H (6-23) mg/dl Creatinine 1.01 (0.6-1.2) mg/dl Est Cr Clr Drug Dosing 26.7 ml/min eGFR 57.34 BUN/Creatinine Ratio 34.7 H (10-20) Glucose 108 H (70-99(Fasting)) mg/dl Calcium 8.4 L (8.6-10.3) mg/dl Phosphorus 4.4 (2.5-4.9) mg/dl Magnesium 2.2 (1.7-2.4) mg/dl IMP Carbapenemase (VIRGEN) NOT DETECTED (NotDetected) KPC Carbapenemase (VIRGEN) NOT DETECTED (NotDetected) NDM Carbapenemase (VIRGEN) NOT DETECTED (NotDetected) OXA Carbapenemase (VIRGEN) NOT DETECTED (NotDetected) VIM Carbapenemase (VIRGEN) NOT DETECTED (NotDetected) Medications Administered Current Inpatient Medications Acetaminophen (Acetaminophen 325 Mg Tab) 650 mg PO Q4H PRN PRN Reason: Pain or Fever Stop: 03/22/25 15:33 Last Admin: 03/02/25 09:22 Dose: 650 mg Apixaban (Apixaban 5 Mg Tablet) 5 mg PO BID [facility] Stop: 03/22/25 14:04 Last Admin: 03/02/25 09:19 Dose: 5 mg Atorvastatin Calcium (Atorvastatin 10 Mg Tab) 10 mg PO HS [facility] Stop: 03/22/25 20:59 Last Admin: 03/01/25 20:44 Dose: 10 mg Carvedilol (Carvedilol 12.5 Mg Tab) 12.5 mg PO BID [facility] Stop: 03/25/25 20:59 Last Admin: 02/26/25 07:53 Dose: 12.5 mg Cyanocobalamin (Cyanocobalamin (B-12) 500 Mcg Tablet) 1,000 mcg PO DAILY [facility] Stop: 03/23/25 08:59 Last Admin: 03/02/25 09:19 Dose: 1,000 mcg Diclofenac Sodium (Diclofenac Sod 1% Gel 100 Gm Tube) 2 gm EXT Q6H PRN; Protocol PRN Reason: leg pain Stop: 03/25/25 04:51 Last Admin: 02/24/25 05:59 Dose: 2 gm Docusate Sodium (Docusate Sodium 100 Mg Cap) 100 mg PO BID [facility] Stop: 03/22/25 20:59 Last Admin: 03/02/25 09:22 Dose: 100 mg Furosemide (Furosemide 20 Mg Tab) 20 mg PO BID17 [facility] Stop: 03/25/25 08:59 Last Admin: 03/01/25 17:06 Dose: Not Given Heparin Sodium (Porcine) (Heparin 100 Unit/Ml 5ml Flush) 5 ml FLUSH PRN PRN PRN Reason: Flush Stop: 03/23/25 05:53 Last Admin: 03/01/25 08:45 Dose: 5 ml Lactobacillus Acidophilus (Advanced Probiotic 625 Mg Capsule) 1,250 mg PO DAILY [facility] Stop: 03/24/25 15:29 Last Admin: 03/02/25 09:19 Dose: 1,250 mg Magnesium Chloride (Magnesium Chloride W/Calcium 64mg Delayed Rel Tab) 64 mg PO TID [facility] Stop: 03/22/25 20:59 Last Admin: 03/02/25 09:19 Dose: 64 mg Magnesium Hydroxide (Magnesium Hydroxide Susp 30 Ml Udc) 30 ml PO Q12H PRN PRN Reason: Constipation Stop: 03/22/25 15:33 Melatonin (Melatonin 3 Mg Tab) 3 mg PO HS PRN PRN Reason: Sleep Stop: 03/22/25 19:30 Last Admin: 03/01/25 20:45 Dose: 3 mg Metoprolol Succinate (Metoprolol Succ 25mg Ext Rel Tab) 25 mg PO BID [facility] Stop: 03/28/25 20:59 Last Admin: 03/02/25 09:20 Dose: Not Given Mirtazapine (Mirtazapine Tab 15 Mg Tab) 7.5 mg PO HS [facility] Stop: 03/23/25 20:59 Last Admin: 03/01/25 20:44 Dose: 7.5 mg Ondansetron HCl (Ondansetron Inj 2 Mg/Ml 2 Ml Vial) 4 mg IV Q6H PRN PRN Reason: Nausea Stop: 03/22/25 15:33 Pantoprazole Sodium (Pantoprazole 40 Mg Tab) 40 mg PO BID [facility] Stop: 03/22/25 20:59 Last Admin: 03/02/25 09:20 Dose: 40 mg Polyethylene Glycol (Polyethylene (Miralax) 17 Gm Pack) 17 gm PO DAILY PRN PRN Reason: Constipation Stop: 03/22/25 15:33 Sertraline HCl (Sertraline Hcl 50 Mg Tablet) 25 mg PO QAM [facility] Stop: 03/23/25 12:44 Last Admin: 03/02/25 09:20 Dose: 25 mg Thiamine HCl (Thiamine Hcl 100 Mg Tab) 100 mg PO QAM [facility] Stop: 03/30/25 08:59 Last Admin: 03/02/25 09:20 Dose: 100 mg Vitamin D (Cholecalciferol 25 Mcg (1000 Units) Tab) 25 mcg PO DAILY [facility] Stop: 03/23/25 08:59 Last Admin: 03/02/25 09:20 Dose: 25 mcg
[2025-03-02 10:21] LABS: IMP Carbapenemase NOT DETECTED (NotDetected); KPC Carbapenemase NOT DETECTED (NotDetected); NDM Carbapenemase NOT DETECTED (NotDetected); OXA48 Carbapenemase NOT DETECTED (NotDetected); VIM Carbapenemase NOT DETECTED (NotDetected)
[2025-03-02 10:52] LABS: Hematocrit (blood only) 28.6 % (37.0-47.0); Hemoglobin 8.9 g/dL (12.0-16.0); Mean Corpuscular Hemoglobin 28.0 pg (25.0-34.0); Mean Corpuscular Volume 89.9 fL (80.0-100.0); Platelet Count 354 K/uL (130-400); RDW Standard Deviation 48.7 fL (36.4-46.3); Red Blood Count 3.18 M/uL (4.20-5.40); White Blood Count 9.93 K/ul (4.8-10.8)
[2025-03-02 11:09] LABS: Anion Gap 11.0 (3-11); Blood Urea Nitrogen 35.0 mg/dl (6-23); Calcium 8.4 mg/dl (8.6-10.3); Carbon Dioxide 18.0 mmol/L (21-32); Chloride 115.0 mmol/L (98-107); Creatinine Clr Calc Pharmacy 26.7 ml/min; Glucose 108.0 mg/dl (70-99(Fasting)); Magnesium 2.2 mg/dl (1.7-2.4); Potassium 3.5 mmol/L (3.5-5.1); Sodium 144.0 mmol/L (136-145)
[2025-03-02] MEDS: POTASSIUM CHLORIDE 10 MEQ TABCR PO SCH (11:36)
[2025-03-02] MEDS: METOPROLOL SUCC 25MG EXT REL TAB PO SCH (20:44)
--- NOTE | 2025-03-03 10:58 | Hospitalist Progress Note ---
Date of Service March 03, 2025 Assessment & Plan (1) Acute dehydration: (2) Hypernatremia: (3) Adult failure to thrive syndrome: (4) Hypokalemia: Plan Per previous provider w/ addendum: Patient is a 79y/o F with PMHx significant for malignant neoplasm of ovary, prediabetes, HLD, pulmonary hypertension, emphysema, chronic systolic heart failure, CAD, HTN, nonrheumatic mitral valve regurgitation, vitamin D deficiency, GERD, malignant neoplasm of large intestine and rectum, senile osteoporosis, malignant neoplasm of peritoneum, chronic PE anticoagulated on Eliquis, malignant neoplasm of intrapelvic lymph nodes, adjustment disorder with depressed mood, chronic depression with insomnia and hyponatremia/SIADH who presented to the ED via EMS due to inability to care for self. 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 -- Toxicology screen negative --Alcohol level negative Cautious use of IV fluids given CHF Poor oral intake Appreciate psychiatry input Continue sertraline, mirtazapine Appreciate nephrology input Continue PT OT Encourage increase oral intake Monitor BMP closely Sodium level stable at 144 Plan to discharge to SNF Severe protein calorie malnutrition Encouraged to increase oral intake Dietitian consulted Hypokalemia Hypomagnesemia Replete and monitor HTN Presented with hypotension Blood pressure on lower side Norvasc, Entresto on hold Coreg changed to metoprolol succinate 12.5 mg twice a day NSVT/PAT Noted on 02/23/2025 Monitor repeat electrolytes as needed Changed Coreg to metoprolol as above Alcohol use disorder Suspected alcohol withdrawal Was drinking 2.5 beers nightly Last drink 1 week ago prior to admission Continue thiamine Monitor for withdrawal Abnormal UA Ruled out UTI Urine culture--Pasteurella Received IV Rocephin empirically Nodular focus of the basal RLL Also was seen on prior CT thoracic spine from October 2024 --CXR:Emphysema with chronic interstitial coarsening. Chronic pleural- parenchymal scarring of right lung apex. Nodular focus of the basal right lower lobe, also seen on the 10/20/2024 CT thoracic spine. Attention at follow-up recommended in order to exclude pleural metastasis. Needs follow-up as outpatient to exclude pleural metastasis Abnormal thoracic and lumbar CT imaging noted last admission in October 2024 Findings c/f bone lesions, hepatic lesions, pulmonary lesion (as above) Needs f/u with heme/onc on discharge Recent medication noncompliance Has not taken meds for past week due to depression, grief rx Appears pt has been refilling her meds appropriately per ext med record Chronic PE Continue Eliquis Chronic systolic CHF Moderate to severe mitral regurgitation Nonischemic cardiomyopathy Has f/w [facility] cards in the past Most recent TTE, 10/22/24: EF 45-50%, mild concentric LVH, mild global hypokinesis of the LV, grade II DD, mod-severe MR (grossly unchanged from TTE done 07/2023) Currently no signs of volume overload Entresto on hold Continue metoprolol Monitor volume status closely Resumed Lasix at lower dose , however poor oral intake and BP low, will hold HLD Continue statin GERD Continue Protonix History of bilateral breast cancer S/p surgery and chemoradiation History of metastatic ovarian cancer S/p debulking surgery and chemoradiation Reports intermittent vaginal bleed since surgery Monitor CBC DVT Px: Eliquis Code Status:FULL CODE Disposition: Patient currently lacks medical decision capacity to leave AMA per psych Disposition difficult Case management to help with discharge planning, plan to DC to SNF Admission and Anticipated Discharge Date Admission Date: February 20, 2025 Subjective Patient seen in follow up Pt seen yesterday ambulating from bathroom to chair with help This AM, lying in bed, resting, not having any complaints Pt was seen by psych and by nephrology previous concern for vaginal discharge and metal sprayer consulted, pt initially declined pelvic exam, then was ok with it, vag. culture sent - so far shows normal emily + poor oral intake since her cat . CM involved in contacting POAs. Sodium level 144 Denies any chest pain, abdominal pain, nausea, vomiting Review of Systems Review of Systems: All systems reviewed & are unremarkable except as noted in Subjective Physical Exam Physical Exam: General Appearance: Thin, frail, elderly, no apparent distress Head: normocephalic, Atraumatic Eyes: normal inspection, EOMI Neck: supple Respiratory/Chest: Normal breath sounds, CTA, + port, No accessory muscle use Cardiovascular: S1, S2, No murmur Abdomen/GI:Soft, Non tender, Bowel sounds present Extremities/Musculoskeletal:normal inspection, no edema Neurologic/Psych:AAOX3, grossly no focal neurological deficits Skin: normal color, warm Results & Data Results & Data Vital Signs (Past 12 Hours) Vital Signs Temp Pulse Pulse Resp BP Pulse Ox O2 Del Method 03/03/25 07:58 36.5 C 83 16 96/68 L 96 Room Air 03/03/25 07:16 79 03/03/25 03:52 36.5 C 81 18 104/71 96 Room Air 03/02/25 23:33 36.3 C L 81 14 99/68 L 93 Room Air Medications Administered Current Inpatient Medications Acetaminophen (Acetaminophen 325 Mg Tab) 650 mg PO Q4H PRN PRN Reason: Pain or Fever Stop: 03/22/25 15:33 Last Admin: 03/03/25 08:54 Dose: 650 mg Apixaban (Apixaban 5 Mg Tablet) 5 mg PO BID [facility] Stop: 03/22/25 14:04 Last Admin: 03/03/25 08:53 Dose: 5 mg Atorvastatin Calcium (Atorvastatin 10 Mg Tab) 10 mg PO HS [facility] Stop: 03/22/25 20:59 Last Admin: 03/02/25 21:09 Dose: 10 mg Carvedilol (Carvedilol 12.5 Mg Tab) 12.5 mg PO BID [facility] Stop: 03/25/25 20:59 Last Admin: 02/26/25 07:53 Dose: 12.5 mg Cyanocobalamin (Cyanocobalamin (B-12) 500 Mcg Tablet) 1,000 mcg PO DAILY [facility] Stop: 03/23/25 08:59 Last Admin: 03/03/25 08:53 Dose: 1,000 mcg Diclofenac Sodium (Diclofenac Sod 1% Gel 100 Gm Tube) 2 gm EXT Q6H PRN; Protocol PRN Reason: leg pain Stop: 03/25/25 04:51 Last Admin: 02/24/25 05:59 Dose: 2 gm Docusate Sodium (Docusate Sodium 100 Mg Cap) 100 mg PO BID [facility] Stop: 03/22/25 20:59 Last Admin: 03/03/25 08:55 Dose: 100 mg Furosemide (Furosemide 20 Mg Tab) 20 mg PO BID17 [facility] Stop: 03/25/25 08:59 Last Admin: 03/01/25 17:06 Dose: Not Given Heparin Sodium (Porcine) (Heparin 100 Unit/Ml 5ml Flush) 5 ml FLUSH PRN PRN PRN Reason: Flush Stop: 03/23/25 05:53 Last Admin: 03/01/25 08:45 Dose: 5 ml Lactobacillus Acidophilus (Advanced Probiotic 625 Mg Capsule) 1,250 mg PO DAILY [facility] Stop: 03/24/25 15:29 Last Admin: 03/03/25 08:52 Dose: 1,250 mg Magnesium Chloride (Magnesium Chloride W/Calcium 64mg Delayed Rel Tab) 64 mg PO TID [facility] Stop: 03/22/25 20:59 Last Admin: 03/03/25 08:53 Dose: 64 mg Magnesium Hydroxide (Magnesium Hydroxide Susp 30 Ml Udc) 30 ml PO Q12H PRN PRN Reason: Constipation Stop: 03/22/25 15:33 Melatonin (Melatonin 3 Mg Tab) 3 mg PO HS PRN PRN Reason: Sleep Stop: 03/22/25 19:30 Last Admin: 03/02/25 21:09 Dose: 3 mg Metoprolol Succinate (Metoprolol Succ 25mg Ext Rel Tab) 12.5 mg PO BID [facility] Stop: 04/01/25 20:59 Last Admin: 03/03/25 08:59 Dose: Not Given Mirtazapine (Mirtazapine Tab 15 Mg Tab) 7.5 mg PO HS [facility] Stop: 03/23/25 20:59 Last Admin: 03/02/25 21:10 Dose: 7.5 mg Ondansetron HCl (Ondansetron Inj 2 Mg/Ml 2 Ml Vial) 4 mg IV Q6H PRN PRN Reason: Nausea Stop: 03/22/25 15:33 Pantoprazole Sodium (Pantoprazole 40 Mg Tab) 40 mg PO BID [facility] Stop: 03/22/25 20:59 Last Admin: 03/03/25 08:54 Dose: 40 mg Polyethylene Glycol (Polyethylene (Miralax) 17 Gm Pack) 17 gm PO DAILY PRN PRN Reason: Constipation Stop: 03/22/25 15:33 Potassium Chloride (Potassium Chloride 10 Meq Tabcr) 10 meq PO BID [facility] Stop: 04/01/25 11:14 Last Admin: 03/03/25 08:55 Dose: 10 meq Sertraline HCl (Sertraline Hcl 50 Mg Tablet) 25 mg PO QAM [facility] Stop: 03/23/25 12:44 Last Admin: 03/03/25 08:54 Dose: 25 mg Thiamine HCl (Thiamine Hcl 100 Mg Tab) 100 mg PO QAM [facility] Stop: 03/30/25 08:59 Last Admin: 03/03/25 08:53 Dose: 100 mg Vitamin D (Cholecalciferol 25 Mcg (1000 Units) Tab) 25 mcg PO DAILY [facility] Stop: 03/23/25 08:59 Last Admin: 03/03/25 08:54 Dose: 25 mcg
--- NOTE | 2025-03-04 11:26 | Hospitalist Progress Note ---
Date of Service March 04, 2025 Assessment & Plan (1) Acute dehydration: (2) Hypernatremia: (3) Adult failure to thrive syndrome: (4) Hypokalemia: Plan Per previous provider w/ addendum: Patient is a 79y/o F with PMHx significant for malignant neoplasm of ovary, prediabetes, HLD, pulmonary hypertension, emphysema, chronic systolic heart failure, CAD, HTN, nonrheumatic mitral valve regurgitation, vitamin D deficiency, GERD, malignant neoplasm of large intestine and rectum, senile osteoporosis, malignant neoplasm of peritoneum, chronic PE anticoagulated on Eliquis, malignant neoplasm of intrapelvic lymph nodes, adjustment disorder with depressed mood, chronic depression with insomnia and hyponatremia/SIADH who presented to the ED via EMS due to inability to care for self. 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 -- Toxicology screen negative --Alcohol level negative Cautious use of IV fluids given CHF Poor oral intake Appreciate psychiatry input Continue sertraline, mirtazapine Appreciate nephrology input Continue PT OT Encourage increase oral intake Monitor BMP closely Sodium level stable at 144 Plan to discharge to SNF/rehab Severe protein calorie malnutrition Encouraged to increase oral intake Dietitian consulted Hypokalemia Hypomagnesemia Replete and monitor HTN Presented with hypotension Blood pressure on lower side Norvasc, Entresto on hold Coreg changed to metoprolol succinate 12.5 mg twice a day NSVT/PAT Noted on 02/23/2025 Monitor repeat electrolytes as needed Changed Coreg to metoprolol as above Alcohol use disorder Suspected alcohol withdrawal Was drinking 2.5 beers nightly Last drink 1 week ago prior to admission Continue thiamine Monitor for withdrawal Abnormal UA Ruled out UTI Urine culture--Pasteurella Received IV Rocephin empirically Nodular focus of the basal RLL Also was seen on prior CT thoracic spine from October 2024 --CXR:Emphysema with chronic interstitial coarsening. Chronic pleural- parenchymal scarring of right lung apex. Nodular focus of the basal right lower lobe, also seen on the 10/20/2024 CT thoracic spine. Attention at follow-up recommended in order to exclude pleural metastasis. Needs follow-up as outpatient to exclude pleural metastasis Abnormal thoracic and lumbar CT imaging noted last admission in October 2024 Findings c/f bone lesions, hepatic lesions, pulmonary lesion (as above) Needs f/u with heme/onc on discharge Recent medication noncompliance Has not taken meds for past week due to depression, grief rx Appears pt has been refilling her meds appropriately per ext med record Chronic PE Continue Eliquis Chronic systolic CHF Moderate to severe mitral regurgitation Nonischemic cardiomyopathy Has f/w [facility] cards in the past Most recent TTE, 10/22/24: EF 45-50%, mild concentric LVH, mild global hypokinesis of the LV, grade II DD, mod-severe MR (grossly unchanged from TTE done 07/2023) Currently no signs of volume overload Entresto on hold Continue metoprolol Monitor volume status closely Resumed Lasix at lower dose , however poor oral intake and BP low, will hold HLD Continue statin GERD Continue Protonix History of bilateral breast cancer S/p surgery and chemoradiation History of metastatic ovarian cancer S/p debulking surgery and chemoradiation Reports intermittent vaginal bleed since surgery Monitor CBC DVT Px: Eliquis Code Status:FULL CODE Disposition: Patient currently lacks medical decision capacity to leave AMA per psych Disposition difficult Case management to help with discharge planning, plan to DC to SNF Admission and Anticipated Discharge Date Admission Date: February 20, 2025 Subjective Patient seen in follow up Currently lying in bed, resting, not having any complaints. Says she ate eggs for breakfast. Pt was seen by psych and by nephrology previous concern for vaginal discharge and mannequin decorator consulted, pt initially declined pelvic exam, then was ok with it, vag. culture sent - shows normal emily + poor oral intake since her cat . CM involved in contacting POAs. Sodium level 144 Denies any chest pain, abdominal pain, nausea, vomiting Review of Systems Review of Systems: All systems reviewed & are unremarkable except as noted in Subjective Physical Exam Physical Exam: General Appearance: Thin, frail, elderly, no apparent distress Head: normocephalic, Atraumatic Eyes: normal inspection, EOMI Neck: supple Respiratory/Chest: Normal breath sounds, CTA, + port, No accessory muscle use Cardiovascular: S1, S2, No murmur Abdomen/GI:Soft, Non tender, Bowel sounds present Extremities/Musculoskeletal:normal inspection, no edema Neurologic/Psych:AAOX3, grossly no focal neurological deficits Skin: normal color, warm Results & Data Results & Data Vital Signs (Past 12 Hours) Vital Signs Temp Pulse Pulse Resp BP BP Pulse Ox 03/04/25 08:06 36.3 C L 108 H 18 123/59 L 93 03/04/25 07:46 70 03/04/25 03:29 104/72 03/04/25 02:58 36 C L 75 18 88/58 L 94 03/03/25 23:42 36.2 C L 77 14 123/79 94 O2 Del Method 03/04/25 08:06 Room Air 03/04/25 07:46 03/04/25 03:29 03/04/25 02:58 Room Air 03/03/25 23:42 Room Air Medications Administered Current Inpatient Medications Acetaminophen (Acetaminophen 325 Mg Tab) 650 mg PO Q4H PRN PRN Reason: Pain or Fever Stop: 03/22/25 15:33 Last Admin: 03/04/25 03:23 Dose: 650 mg Apixaban (Apixaban 5 Mg Tablet) 5 mg PO BID [facility] Stop: 03/22/25 14:04 Last Admin: 03/04/25 10:31 Dose: 5 mg Atorvastatin Calcium (Atorvastatin 10 Mg Tab) 10 mg PO HS [facility] Stop: 03/22/25 20:59 Last Admin: 03/03/25 21:01 Dose: Not Given Carvedilol (Carvedilol 12.5 Mg Tab) 12.5 mg PO BID [facility] Stop: 03/25/25 20:59 Last Admin: 02/26/25 07:53 Dose: 12.5 mg Cyanocobalamin (Cyanocobalamin (B-12) 500 Mcg Tablet) 1,000 mcg PO DAILY [facility] Stop: 03/23/25 08:59 Last Admin: 03/04/25 10:30 Dose: 1,000 mcg Diclofenac Sodium (Diclofenac Sod 1% Gel 100 Gm Tube) 2 gm EXT Q6H PRN; Protocol PRN Reason: leg pain Stop: 03/25/25 04:51 Last Admin: 02/24/25 05:59 Dose: 2 gm Docusate Sodium (Docusate Sodium 100 Mg Cap) 100 mg PO BID [facility] Stop: 03/22/25 20:59 Last Admin: 03/04/25 10:33 Dose: Not Given Furosemide (Furosemide 20 Mg Tab) 20 mg PO BID17 [facility] Stop: 03/25/25 08:59 Last Admin: 03/01/25 17:06 Dose: Not Given Heparin Sodium (Porcine) (Heparin 100 Unit/Ml 5ml Flush) 5 ml FLUSH PRN PRN PRN Reason: Flush Stop: 03/23/25 05:53 Last Admin: 03/01/25 08:45 Dose: 5 ml Lactobacillus Acidophilus (Advanced Probiotic 625 Mg Capsule) 1,250 mg PO DAILY [facility] [place] Stop: 03/24/25 15:29 Last Admin: 03/04/25 10:30 Dose: 1,250 mg Magnesium Chloride (Magnesium Chloride W/Calcium 64mg Delayed Rel Tab) 64 mg PO TID [facility] Stop: 03/22/25 20:59 Last Admin: 03/04/25 10:32 Dose: 64 mg Magnesium Hydroxide (Magnesium Hydroxide Susp 30 Ml Udc) 30 ml PO Q12H PRN PRN Reason: Constipation Stop: 03/22/25 15:33 Melatonin (Melatonin 3 Mg Tab) 3 mg PO HS PRN PRN Reason: Sleep Stop: 03/22/25 19:30 Last Admin: 03/02/25 21:09 Dose: 3 mg Metoprolol Succinate (Metoprolol Succ 25mg Ext Rel Tab) 12.5 mg PO BID [facility] [place] Stop: 04/01/25 20:59 Last Admin: 03/04/25 10:30 Dose: 12.5 mg Mirtazapine (Mirtazapine Tab 15 Mg Tab) 7.5 mg PO HS [facility] [place] Stop: 03/23/25 20:59 Last Admin: 03/04/25 10:32 Dose: 7.5 mg Ondansetron HCl (Ondansetron Inj 2 Mg/Ml 2 Ml Vial) 4 mg IV Q6H PRN PRN Reason: Nausea Stop: 03/22/25 15:33 Pantoprazole Sodium (Pantoprazole 40 Mg Tab) 40 mg PO BID [facility] [place] Stop: 03/22/25 20:59 Last Admin: 03/04/25 10:31 Dose: 40 mg Polyethylene Glycol (Polyethylene (Miralax) 17 Gm Pack) 17 gm PO DAILY PRN PRN Reason: Constipation Stop: 03/22/25 15:33 Potassium Chloride (Potassium Chloride 10 Meq Tabcr) 10 meq PO BID [facility] [place] Stop: 04/01/25 11:14 Last Admin: 03/04/25 10:36 Dose: 10 meq Sertraline HCl (Sertraline Hcl 50 Mg Tablet) 25 mg PO QAM [facility] [place] Stop: 03/23/25 12:44 Last Admin: 03/04/25 10:32 Dose: 25 mg Thiamine HCl (Thiamine Hcl 100 Mg Tab) [facility] [place] Stop: 03/30/25 08:59 Last Admin: 03/04/25 10:30 Dose: 100 mg Vitamin D (Cholecalciferol 25 Mcg (1000 Units) Tab) 25 mcg PO DAILY [facility] [place] Stop: 03/23/25 08:59 Last Admin: 03/04/25 10:32 Dose: 25 mcg
--- NOTE | 2025-03-05 14:31 | Hospitalist Progress Note ---
Date of Service March 05, 2025 Assessment & Plan (1) Acute dehydration: (2) Hypernatremia: (3) Adult failure to thrive syndrome: (4) Hypokalemia: Plan Per previous provider w/ addendum: Patient is a 79y/o F with PMHx significant for malignant neoplasm of ovary, prediabetes, HLD, pulmonary hypertension, emphysema, chronic systolic heart failure, CAD, HTN, nonrheumatic mitral valve regurgitation, vitamin D deficiency, GERD, malignant neoplasm of large intestine and rectum, senile osteoporosis, malignant neoplasm of peritoneum, chronic PE anticoagulated on Eliquis, malignant neoplasm of intrapelvic lymph nodes, adjustment disorder with depressed mood, chronic depression with insomnia and hyponatremia/SIADH who presented to the ED via EMS due to inability to care for self. 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 -- Toxicology screen negative --Alcohol level negative Cautious use of IV fluids given CHF Poor oral intake Appreciate psychiatry input Continue sertraline, mirtazapine Appreciate nephrology input Continue PT OT Encourage increase oral intake Monitor BMP closely Sodium level stable at 144 Plan to discharge to SNF/rehab Severe protein calorie malnutrition Encouraged to increase oral intake Dietitian consulted Hypokalemia Hypomagnesemia Replete and monitor HTN Presented with hypotension Blood pressure on lower side Norvasc, Entresto on hold Coreg changed to metoprolol succinate 12.5 mg twice a day NSVT/PAT Noted on 02/23/2025 Monitor repeat electrolytes as needed Changed Coreg to metoprolol as above Alcohol use disorder Suspected alcohol withdrawal Was drinking 2.5 beers nightly Last drink 1 week ago prior to admission Continue thiamine Monitor for withdrawal Abnormal UA Ruled out UTI Urine culture--Pasteurella Received IV Rocephin empirically Nodular focus of the basal RLL Also was seen on prior CT thoracic spine from October 2024 --CXR:Emphysema with chronic interstitial coarsening. Chronic pleural- parenchymal scarring of right lung apex. Nodular focus of the basal right lower lobe, also seen on the 10/20/2024 CT thoracic spine. Attention at follow-up recommended in order to exclude pleural metastasis. Needs follow-up as outpatient to exclude pleural metastasis Abnormal thoracic and lumbar CT imaging noted last admission in October 2024 Findings c/f bone lesions, hepatic lesions, pulmonary lesion (as above) Needs f/u with heme/onc on discharge Recent medication noncompliance Has not taken meds for past week due to depression, grief rx Appears pt has been refilling her meds appropriately per ext med record Chronic PE Continue Eliquis Chronic systolic CHF Moderate to severe mitral regurgitation Nonischemic cardiomyopathy Has f/w [facility] cards in the past Most recent TTE, 10/22/24: EF 45-50%, mild concentric LVH, mild global hypokinesis of the LV, grade II DD, mod-severe MR (grossly unchanged from TTE done 07/2023) Currently no signs of volume overload Entresto on hold Continue metoprolol Monitor volume status closely Resumed Lasix at lower dose , however poor oral intake and BP low, will hold HLD Continue statin GERD Continue Protonix History of bilateral breast cancer S/p surgery and chemoradiation History of metastatic ovarian cancer S/p debulking surgery and chemoradiation Reports intermittent vaginal bleed since surgery Monitor CBC DVT Px: Eliquis Code Status:FULL CODE Disposition: Patient currently lacks medical decision capacity to leave AMA per psych Disposition difficult Case management to help with discharge planning, plan to DC to SNF Admission and Anticipated Discharge Date Admission Date: February 20, 2025 Subjective Patient seen in follow up Currently lying in bed, resting, not having any complaints. Pt was seen by psych and by nephrology previous concern for vaginal discharge and acquisition consultant consulted, pt initially declined pelvic exam, then was ok with it, vag. culture sent - shows normal emily + poor oral intake since her cat . CM involved in contacting POAs. Sodium level 144 Denies any chest pain, abdominal pain, nausea, vomiting Review of Systems Review of Systems: All systems reviewed & are unremarkable except as noted in Subjective Physical Exam Physical Exam: General Appearance: Thin, frail, elderly, no apparent distress Head: normocephalic, Atraumatic Eyes: normal inspection, EOMI Neck: supple Respiratory/Chest: Normal breath sounds, CTA, + port, No accessory muscle use Cardiovascular: S1, S2, No murmur Abdomen/GI:Soft, Non tender, Bowel sounds present Extremities/Musculoskeletal:normal inspection, no edema Neurologic/Psych:AAOX3, grossly no focal neurological deficits Skin: normal color, warm Results & Data Results & Data Vital Signs (Past 12 Hours) Vital Signs Temp Pulse Pulse Resp BP BP Pulse Ox 03/05/25 12:15 36.8 C 79 18 119/53 L 98 03/05/25 08:11 35.9 C L 77 18 134/58 L 98 03/05/25 07:35 78 03/05/25 03:45 36.4 C L 60 17 120/63 95 O2 Del Method 03/05/25 12:15 Room Air 03/05/25 08:11 Room Air 03/05/25 07:35 03/05/25 03:45 Room Air Medications Administered Current Inpatient Medications Acetaminophen (Acetaminophen 325 Mg Tab) 650 mg PO Q4H PRN PRN Reason: Pain or Fever Stop: 03/22/25 15:33 Last Admin: 03/05/25 03:15 Dose: 650 mg Apixaban (Apixaban 5 Mg Tablet) 5 mg PO BID [facility] Stop: 03/22/25 14:04 Last Admin: 03/05/25 09:01 Dose: 5 mg Atorvastatin Calcium (Atorvastatin 10 Mg Tab) 10 mg PO HS [facility] Stop: 03/22/25 20:59 Last Admin: 03/04/25 19:42 Dose: 10 mg Carvedilol (Carvedilol 12.5 Mg Tab) 12.5 mg PO BID [facility] Stop: 03/25/25 20:59 Last Admin: 02/26/25 07:53 Dose: 12.5 mg Cyanocobalamin (Cyanocobalamin (B-12) 500 Mcg Tablet) 1,000 mcg PO DAILY [facility] Stop: 03/23/25 08:59 Last Admin: 03/05/25 09:02 Dose: 1,000 mcg Diclofenac Sodium (Diclofenac Sod 1% Gel 100 Gm Tube) 2 gm EXT Q6H PRN; Protocol PRN Reason: leg pain Stop: 03/25/25 04:51 Last Admin: 02/24/25 05:59 Dose: 2 gm Docusate Sodium (Docusate Sodium 100 Mg Cap) 100 mg PO BID [facility] Stop: 03/22/25 20:59 Last Admin: 03/05/25 09:04 Dose: 100 mg Furosemide (Furosemide 20 Mg Tab) 20 mg PO BID17 [facility] Stop: 03/25/25 08:59 Last Admin: 03/01/25 17:06 Dose: Not Given Heparin Sodium (Porcine) (Heparin 100 Unit/Ml 5ml Flush) 5 ml FLUSH PRN PRN PRN Reason: Flush Stop: 03/23/25 05:53 Last Admin: 03/01/25 08:45 Dose: 5 ml Lactobacillus Acidophilus (Advanced Probiotic 625 Mg Capsule) 1,250 mg PO DAILY [facility] Stop: 03/24/25 15:29 Last Admin: 03/05/25 09:01 Dose: 1,250 mg Magnesium Chloride (Magnesium Chloride W/Calcium 64mg Delayed Rel Tab) 64 mg PO TID [facility] Stop: 03/22/25 20:59 Last Admin: 03/05/25 09:01 Dose: 64 mg Magnesium Hydroxide (Magnesium Hydroxide Susp 30 Ml Udc) 30 ml PO Q12H PRN PRN Reason: Constipation Stop: 03/22/25 15:33 Melatonin (Melatonin 3 Mg Tab) 3 mg PO HS PRN PRN Reason: Sleep Stop: 03/22/25 19:30 Last Admin: 03/04/25 19:42 Dose: 3 mg Metoprolol Succinate (Metoprolol Succ 25mg Ext Rel Tab) 12.5 mg PO BID [facility] Stop: 04/01/25 20:59 Last Admin: 03/05/25 09:02 Dose: 12.5 mg Mirtazapine (Mirtazapine Tab 15 Mg Tab) 7.5 mg PO HS [facility] Stop: 03/23/25 20:59 Last Admin: 03/04/25 10:32 Dose: 7.5 mg Ondansetron HCl (Ondansetron Inj 2 Mg/Ml 2 Ml Vial) 4 mg IV Q6H PRN PRN Reason: Nausea Stop: 03/22/25 15:33 Pantoprazole Sodium (Pantoprazole 40 Mg Tab) 40 mg PO BID [facility] Stop: 03/22/25 20:59 Last Admin: 03/05/25 09:03 Dose: 40 mg Polyethylene Glycol (Polyethylene (Miralax) 17 Gm Pack) 17 gm PO DAILY PRN PRN Reason: Constipation Stop: 03/22/25 15:33 Potassium Chloride (Potassium Chloride 10 Meq Tabcr) 10 meq PO BID [facility] Stop: 04/01/25 11:14 Last Admin: 03/05/25 09:04 Dose: 10 meq Sertraline HCl (Sertraline Hcl 50 Mg Tablet) 25 mg PO QAM [facility] Stop: 03/23/25 12:44 Last Admin: 03/05/25 09:02 Dose: 25 mg Thiamine HCl (Thiamine Hcl 100 Mg Tab) 100 mg PO QA [facility] Stop: 03/30/25 08:59 Last Admin: 03/05/25 09:02 Dose: 100 mg Vitamin D (Cholecalciferol 25 Mcg (1000 Units) Tab) 25 mcg PO DAILY [facility] Stop: 03/23/25 08:59 Last Admin: 03/05/25 09:01 Dose: 25 mcg
[2025-03-05 17:44] LABS: Anion Gap 11.0 (3-11); Blood Urea Nitrogen 48.0 mg/dl (6-23); Calcium 9.0 mg/dl (8.6-10.3); Carbon Dioxide 17.0 mmol/L (21-32); Chloride 122.0 mmol/L (98-107); Creatinine Clr Calc Pharmacy 19.6 ml/min; Glucose 86.0 mg/dl (70-99(Fasting)); Magnesium 2.3 mg/dl (1.7-2.4); Potassium 4.0 mmol/L (3.5-5.1); Sodium 150.0 mmol/L (136-145)
[2025-03-05] MEDS: DEXTROSE 5% 500 ML IV SCH (20:05)
[2025-03-05] MEDS: POLYETHYLENE (MIRALAX) 17 GM PACK PO ONE (20:54)
[2025-03-06 09:35] LABS: Anion Gap 9.0 (3-11); Blood Urea Nitrogen 49.0 mg/dl (6-23); Calcium 8.9 mg/dl (8.6-10.3); Carbon Dioxide 17.0 mmol/L (21-32); Chloride 122.0 mmol/L (98-107); Creatinine Clr Calc Pharmacy 19.3 ml/min; Glucose 88.0 mg/dl (70-99(Fasting)); Magnesium 2.2 mg/dl (1.7-2.4); Potassium 4.1 mmol/L (3.5-5.1); Sodium 148.0 mmol/L (136-145)
--- NOTE | 2025-03-06 10:15 | Hospitalist Progress Note ---
Date of Service March 06, 2025 Assessment & Plan (1) Acute dehydration: (2) Hypernatremia: (3) Adult failure to thrive syndrome: (4) Hypokalemia: Plan Patient is a 79y/o F with PMHx significant for malignant neoplasm of ovary, prediabetes, HLD, pulmonary hypertension, emphysema, chronic systolic heart failure, CAD, HTN, nonrheumatic mitral valve regurgitation, vitamin D deficiency, GERD, malignant neoplasm of large intestine and rectum, senile osteoporosis, malignant neoplasm of peritoneum, chronic PE anticoagulated on Eliquis, malignant neoplasm of intrapelvic lymph nodes, adjustment disorder with depressed mood, chronic depression with insomnia and hyponatremia/SIADH who presented to the ED via EMS due to inability to care for self. 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 -- Toxicology screen negative --Alcohol level negative Cautious use of IV fluids given CHF Poor oral intake Appreciate psychiatry input Continue sertraline, mirtazapine Appreciate nephrology input Continue PT OT Encourage increase oral intake Monitor BMP closely Sodium level stable at 144 for 3 days Plan to discharge to SNF/rehab 03/05 Pt felt more dizzy per RN, na level checked and again elevated. gave D5W and encouraged oral intake, discussed w/ nursing staff in detail 03/06 Pt cont. to feel weak, Na 148. Will provide additional D5W. Pt agreeable to drink water. Per nursing staff continues to have poor oral intake, needs encouragement from staff. Severe protein calorie malnutrition Encouraged to increase oral intake Dietitian consulted Hypokalemia Hypomagnesemia Replete and monitor HTN Presented with hypotension Blood pressure on lower side Norvasc, Entresto on hold Coreg changed to metoprolol succinate 12.5 mg twice a day NSVT/PAT Noted on 02/23/2025 Monitor repeat electrolytes as needed Changed Coreg to metoprolol as above Alcohol use disorder Suspected alcohol withdrawal Was drinking 2.5 beers nightly Last drink 1 week ago prior to admission Continue thiamine Monitor for withdrawal Abnormal UA Ruled out UTI Urine culture--Pasteurella Received IV Rocephin empirically Nodular focus of the basal RLL Also was seen on prior CT thoracic spine from October 2024 --CXR:Emphysema with chronic interstitial coarsening. Chronic pleural- parenchymal scarring of right lung apex. Nodular focus of the basal right lower lobe, also seen on the 10/20/2024 CT thoracic spine. Attention at follow-up recommended in order to exclude pleural metastasis. Needs follow-up as outpatient to exclude pleural metastasis Abnormal thoracic and lumbar CT imaging noted last admission in October 2024 Findings c/f bone lesions, hepatic lesions, pulmonary lesion (as above) Needs f/u with heme/onc on discharge Recent medication noncompliance Has not taken meds for past week due to depression, grief rx Appears pt has been refilling her meds appropriately per ext med record Chronic PE Continue Eliquis Chronic systolic CHF Moderate to severe mitral regurgitation Nonischemic cardiomyopathy Has f/w [facility] cards in the past Most recent TTE, 10/22/24: EF 45-50%, mild concentric LVH, mild global hypokinesis of the LV, grade II DD, mod-severe MR (grossly unchanged from TTE done 07/2023) Currently no signs of volume overload Entresto on hold Continue metoprolol Monitor volume status closely Resumed Lasix at lower dose , however poor oral intake and BP low, will hold HLD Continue statin GERD Continue Protonix History of bilateral breast cancer S/p surgery and chemoradiation History of metastatic ovarian cancer S/p debulking surgery and chemoradiation Reports intermittent vaginal bleed since surgery Monitor CBC DVT Px: Eliquis Code Status:FULL CODE Disposition: Patient currently lacks medical decision capacity to leave AMA per psych Disposition difficult Case management to help with discharge planning, plan to DC to SNF Admission and Anticipated Discharge Date Admission Date: February 20, 2025 Subjective Patient seen in follow up Currently lying in bed, resting, not having any complaints. Pt was seen by psych and by nephrology previous concern for vaginal discharge and back roller consulted, pt initially declined pelvic exam, then was ok with it, vag. culture sent - shows normal emily + poor oral intake since her cat . CM involved in contacting POAs. Sodium level 144 was stable, then yesterday Na re-checked as pt feeling dizzy and was found elevated at 150, gave D5W, now at 148, will give D5W and will cont. to encourage PO intake Denies any chest pain, abdominal pain, nausea, vomiting. But feels weak. Encouraged her to drink some water. She agreed. Review of Systems Review of Systems: All systems reviewed & are unremarkable except as noted in Subjective Physical Exam Physical Exam: General Appearance: Thin, frail, elderly, no apparent distress Head: normocephalic, Atraumatic Eyes: normal inspection, EOMI Neck: supple Respiratory/Chest: Normal breath sounds, CTA, + port, No accessory muscle use Cardiovascular: S1, S2, No murmur Abdomen/GI:Soft, Non tender, Bowel sounds present Extremities/Musculoskeletal:normal inspection, no edema Neurologic/Psych:AAOX3, grossly no focal neurological deficits Skin: normal color, warm Results & Data Results & Data Vital Signs (Past 12 Hours) Vital Signs Temp Pulse Pulse Resp BP Pulse Ox O2 Del Method 03/06/25 08:01 36.4 C L 67 18 126/61 99 Room Air 03/06/25 07:19 80 03/06/25 02:40 36.3 C L 75 16 111/63 99 Room Air 03/05/25 22:49 36.3 C L 83 16 122/64 98 Room Air Laboratory Results 03/06/25 03/05/25 Range/Units 08:52 17:04 Sodium 148 H 150 H (136-145) mmol/L Potassium 4.1 4.0 (3.5-5.1) mmol/L Chloride 122 H 122 H (98-107) mmol/L Carbon Dioxide 17 L 17 L (21-32) mmol/L Anion Gap 9 11 (3-11) BUN 49 H 48 H (6-23) mg/dl Creatinine 1.40 H 1.38 H (0.6-1.2) mg/dl Est Cr Clr Drug Dosing 19.3 19.6 ml/min eGFR 38.75 39.42 BUN/Creatinine Ratio 35.0 H 34.8 H (10-20) Glucose 88 86 (70-99(Fasting)) mg/dl Calcium 8.9 9.0 (8.6-10.3) mg/dl Phosphorus 3.6 4.0 (2.5-4.9) mg/dl Magnesium 2.2 2.3 (1.7-2.4) mg/dl Medications Administered Current Inpatient Medications Acetaminophen (Acetaminophen 325 Mg Tab) 650 mg PO Q4H PRN PRN Reason: Pain or Fever Stop: 03/22/25 15:33 Last Admin: 03/05/25 21:56 Dose: 650 mg Apixaban (Apixaban 5 Mg Tablet) 5 mg PO BID [facility] Stop: 03/22/25 14:04 Last Admin: 03/05/25 21:06 Dose: 5 mg Atorvastatin Calcium (Atorvastatin 10 Mg Tab) 10 mg PO HS [facility] Stop: 03/22/25 20:59 Last Admin: 03/05/25 21:07 Dose: 10 mg Carvedilol (Carvedilol 12.5 Mg Tab) 12.5 mg PO BID [facility] Stop: 03/25/25 20:59 Last Admin: 02/26/25 07:53 Dose: 12.5 mg Cyanocobalamin (Cyanocobalamin (B-12) 500 Mcg Tablet) 1,000 mcg PO DAILY [facility] Stop: 03/23/25 08:59 Last Admin: 03/05/25 09:02 Dose: 1,000 mcg Diclofenac Sodium (Diclofenac Sod 1% Gel 100 Gm Tube) 2 gm EXT Q6H PRN; Protocol PRN Reason: leg pain Stop: 03/25/25 04:51 Last Admin: 02/24/25 05:59 Dose: 2 gm Docusate Sodium (Docusate Sodium 100 Mg Cap) 100 mg PO BID [facility] Stop: 03/22/25 20:59 Last Admin: 03/05/25 21:02 Dose: Not Given Furosemide (Furosemide 20 Mg Tab) 20 mg PO BID17 [facility] Stop: 03/25/25 08:59 Last Admin: 03/01/25 17:06 Dose: Not Given Heparin Sodium (Porcine) (Heparin 100 Unit/Ml 5ml Flush) 5 ml FLUSH PRN PRN PRN Reason: Flush Stop: 03/23/25 05:53 Last Admin: 03/01/25 08:45 Dose: 5 ml Dextrose (D5w) 500 mls @ 80 mls/hr IV .Q6H15M [facility] Stop: 03/06/25 16:29 Lactobacillus Acidophilus (Advanced Probiotic 625 Mg Capsule) 1,250 mg PO DAILY [facility] Stop: 03/24/25 15:29 Last Admin: 03/05/25 09:01 Dose: 1,250 mg Magnesium Chloride (Magnesium Chloride W/Calcium 64mg Delayed Rel Tab) 64 mg PO TID [facility] Stop: 03/22/25 20:59 Last Admin: 03/05/25 21:06 Dose: 64 mg Magnesium Hydroxide (Magnesium Hydroxide Susp 30 Ml Udc) 30 ml PO Q12H PRN PRN Reason: Constipation Stop: 03/22/25 15:33 Melatonin (Melatonin 3 Mg Tab) 3 mg PO HS PRN PRN Reason: Sleep Stop: 03/22/25 19:30 Last Admin: 03/05/25 21:06 Dose: 3 mg Metoprolol Succinate (Metoprolol Succ 25mg Ext Rel Tab) 12.5 mg PO BID [facility] Stop: 04/01/25 20:59 Last Admin: 03/05/25 21:07 Dose: 12.5 mg Mirtazapine (Mirtazapine Tab 15 Mg Tab) 7.5 mg PO HS [facility] Stop: 03/23/25 20:59 Last Admin: 03/05/25 21:07 Dose: 7.5 mg Ondansetron HCl (Ondansetron Inj 2 Mg/Ml 2 Ml Vial) 4 mg IV Q6H PRN PRN Reason: Nausea Stop: 03/22/25 15:33 Pantoprazole Sodium (Pantoprazole 40 Mg Tab) 40 mg PO BID [facility] Stop: 03/22/25 20:59 Last Admin: 03/05/25 21:06 Dose: 40 mg Polyethylene Glycol (Polyethylene (Miralax) 17 Gm Pack) 17 gm PO DAILY PRN PRN Reason: Constipation Stop: 03/22/25 15:33 Potassium Chloride (Potassium Chloride 10 Meq Tabcr) 10 meq PO BID [facility] Stop: 04/01/25 11:14 Last Admin: 03/05/25 21:06 Dose: 10 meq Sertraline HCl (Sertraline Hcl 50 Mg Tablet) 25 mg PO QAM [facility] Stop: 03/23/25 12:44 Last Admin: 03/05/25 09:02 Dose: 25 mg Thiamine HCl (Thiamine Hcl 100 Mg Tab) 100 mg PO QAM [facility] Stop: 03/30/25 08:59 Last Admin: 03/05/25 09:02 Dose: 100 mg Vitamin D (Cholecalciferol 25 Mcg (1000 Units) Tab) 25 mcg PO DAILY [facility] Stop: 03/23/25 08:59 Last Admin: 03/05/25 09:01 Dose: 25 mcg
[2025-03-06] MEDS: DEXTROSE 5% 500 ML IV SCH (11:56)
--- NOTE | 2025-03-06 13:21 | Palliative Care Consultation ---
Date of Consultation March 06, 2025 Assessment & Plan (1) Weakness generalized: (2) Adult failure to thrive syndrome: (3) Palliative care by specialist: (4) Discussion about advance care planning held with family member: Patient has a POA listed in chart: Zahra Lisa [phone] I called her at 123pm, no answer. A voicemail was left req call back. I advised Zahra in my VM I am here today then out of office tomorrow 03/07 returning to [facility] 03/20/2025. In my absence, Samreen DODD from my team will be covering IP service and I asked Zahra to call her when able. Plan As above Thank you for allowing us to participate in the ongoing care of this patient. Please page with any additional concerns. Cornelia Akbar DNP Director, Palliative Medicine History of Present Illness Reason for Consultation: goals of care, poor oral intake, POA is Zahra Attending Physician: Rufino Gunn MD History of Present Illness per primary team note 03/06: "79y/o F with PMHx significant for malignant neoplasm of ovary, prediabetes, HLD, pulmonary hypertension, emphysema, chronic systolic heart failure, CAD, HTN, nonrheumatic mitral valve regurgitation, vitamin D deficiency, GERD, malignant neoplasm of large intestine and rectum, senile osteoporosis, malignant neoplasm of peritoneum, chronic PE anticoagulated on Eliquis, malignant neoplasm of intrapelvic lymph nodes, adjustment disorder with depressed mood, chronic depression with insomnia and hyponatremia/SIADH who presented to the ED via EMS due to inability to care for self." Found to have acute dehydration, complicated by hypernatremia, and adult failure to thrive secondary to severe depression and grief reaction. Chart review indicates the patient's beloved pet, Nancy SOLANO, last week. She has a history of chronic depression with insomnia and depression with an adjustment disorder. She may have some complicated cognitive impairment and hallucinations. Oral intake is very poor. She refuses to eat and drink most days. She has significant protein calorie malnutrition. She has not been able to improve her oral intake. She is hypertensive and remains on Norvasc. Coreg was changed to metoprolol twice a day. She has a history of alcohol use disorder and there may have been some alcohol withdrawal at the beginning of this admission with a chart review indicating she drinks 2-3 beers every night. She remains on thiamine. There is also an abnormality noted in the CAT scan of her T-spine from October 2024 with a nodular focus of the basal right lower lung. Her chest x-ray around the same time indicated emphysema with chronic interstitial coarsening. She has chronic pleural-parenchymal scarring of the right lung apex. There is nodular focus of the basal right lower lobe was also seen on a CAT scan of October which was of this thoracic spine. Follow-up was recommended to exclude pleural metastatic disease. She has ongoing issues of medication compliance. This has been attributed to her depression and complex grief reaction. She has chronic PE for which she is maintained on Eliquis. She has chronic systolic heart failure with moderately severe mitral regurgitation and a nonischemic cardiomyopathy. Her Entresto remains on hold. She also has a distant history of bilateral breast cancer which was treated with surgery and chemoradiation which was then followed by history of metastatic ovarian cancer for which she is status post debulking surgery and chemoradiation with a reported history of intermittent vaginal bleeding since that time. She remains a full code. She has been evaluated by psychiatry and deemed to be incompetent and lacking the medical decision capacity to leave AMA. Disposition remains an ongoing difficulty. Allergies Allergy/AdvReac Type Severity Reaction Status Date / Time diphenhydramine Allergy Severe Difficulty Verified 10/20/24 17:47 [From Benadryl] Breathing doxorubicin Allergy Severe CHEMO Verified 10/20/24 17:47 DRUG--UNKNOWN house dust Allergy Intermediate CONGESTION-ODORS, Verified 10/20/24 17:47 FUMES, DUST Home Medications Medication Instructions Recorded Confirmed Type atorvastatin 10 mg tablet (Lipitor) 10 mg PO HS 09/22/19 02/20/25 History cyanocobalamin (vitamin B-12) 500 1,000 mcg PO DAILY 07/23/21 02/20/25 History mcg tablet (Vitamin B-12) apixaban 5 mg tablet (Eliquis) 5 mg PO BID 12/05/21 02/20/25 History amlodipine 5 mg tablet (Norvasc) 5 mg PO QAM 30 days #30 tabs 03/16/23 02/20/25 Rx carvedilol 12.5 mg tablet 37.5 mg (3 x 12.5 mg) PO BID 30 03/23/24 02/20/25 Rx days #540 tabs cholecalciferol (vitamin D3) 25 25 mcg PO DAILY 10/20/24 02/20/25 History mcg (1,000 unit) capsule (Vitamin D3) denosumab 60 mg/mL subcutaneous 60 mg subcut DIRECTED 10/20/24 02/20/25 History syringe (Prolia) docusate sodium 100 mg capsule 100 mg PO BID 10/20/24 02/20/25 History melatonin 3 mg-chamomile flower 1 tab PO HS 10/20/24 02/20/25 History 500 mcg tablet pantoprazole 40 mg tablet,delayed 40 mg PO BID 10/20/24 02/20/25 History release furosemide 40 mg tablet (Lasix) 40 mg PO BID #60 tabs 10/31/24 02/20/25 Rx magnesium chloride 64 mg 64 mg PO TID #90 tabs 10/31/24 02/20/25 Rx (magnesium chloride) tablet,delayed release (Mag-Delay) potassium chloride 20 mEq 20 meq PO TID 90 days #180 tabs 10/31/24 02/20/25 Rx tablet,extended release sacubitril 97 mg-valsartan 103 mg 1 tab PO BID #180 tabs 11/14/24 02/20/25 Rx tablet (Entresto) mirtazapine 15 mg tablet 15 mg PO HS 02/20/25 02/20/25 History Patient History Medical History Arthritis Limb alert care status RUE History of uterine fibroid Degenerative disc disease Spinal stenosis Chronic back pain Osteoarthritis Osteoporosis History of kidney stones History of gastric ulcer History of breast cancer Rt - 17 years ago - S/p Rt mastectomy, chemo + radiation, Lt - 2018 - s/p lumpectomy x 2, raidation 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 followed with physical therapy. History of depression Valvular heart disease follows with [facility] Shabazz; moderate MR, mild global hypokinesis LV, RVSP 40-50mmHg Malignant neoplasm of central portion of left breast in female, estrogen receptor negative 2016 Surgical History Port-A-Cath in place (06/09/21) Insertion of Access Port with Fluoroscopy(Left) - Amador Archibald DO, FACS 06/09/2021 H/O: hysterectomy H/O knee surgery left knee reconstruction Status post correction of deviated nasal septum History of tooth extraction History of foot surgery BL History of lumpectomy of left breast x 2 2019 Hx of right mastectomy with lymph node removal 1991 History of breast biopsy Family History Father Esophageal cancer Social History Smoking Status: Former smoker Tobacco Type: Cigarettes Second Hand Exposure: No; Do You Dip or Chew Tobacco: No; Hx Alcohol Use: Yes Alcohol type: beer Hx Substance Use: No Preferred Language: Botswanan Communication Ability: Effective Message And Delivery Service Pricer Required: No Beliefs That Will Affect Care: None Current Living Situation: Alone Current [facility] Situation Comment[facility] Other Information That Helps Us Care for You: No Feels Safe at Home: Yes Assistive Devices: Cane Review of Systems Review of Systems: Unobtainable due to mental health condition Physical Exam Physical Exam: Frail thin nearly cachectic elderly female. No significant distress noted. Does not participate with this examiner. Does not answer questions or follow commands. No significant distress is noted. She is resting comfortably in bed and there is no respiratory distress noted. Skin is pale. Results & Data Vital Signs (Past 12 Hours) Vital Signs Temp Pulse Pulse Resp BP Pulse Ox O2 Del Method 03/06/25 12:05 Room Air 03/06/25 11:17 36.5 C 82 18 117/60 98 Room Air 03/06/25 08:01 36.4 C L 67 18 126/61 99 Room Air 03/06/25 07:19 80 03/06/25 02:40 36.3 C L 75 16 111/63 99 Room Air Laboratory Results 03/06/25 03/05/25 03/02/25 Range/Units 08:52 17:04 10:24 WBC 9.93 (4.8-10.8) K/ul RBC 3.18 L (4.20-5.40) M/uL Hgb 8.9 L (12.0-16.0) g/dL Hct 28.6 L (37.0-47.0) % MCV 89.9 (80.0-100.0) fL MCH 28.0 (25.0-34.0) pg MCHC 31.1 L (32.0-36.0) g/dL RDW Std Deviation 48.7 H (36.4-46.3) fL RDW Coeff of Cain 14.7 H (11.5-14.5) % Plt Count 354 (130-400) K/uL MPV 10.0 (9.4-12.4) fL Sodium 148 H 150 H 144 (136-145) mmol/L Potassium 4.1 4.0 3.5 (3.5-5.1) mmol/L Chloride 122 H 122 H 115 H (98-107) mmol/L Carbon Dioxide 17 L 17 L 18 L (21-32) mmol/L Anion Gap 9 11 11 (3-11) BUN 49 H 48 H 35 H (6-23) mg/dl Creatinine 1.40 H 1.38 H 1.01 (0.6-1.2) mg/dl Est Cr Clr Drug Dosing 19.3 19.6 26.7 ml/min eGFR 38.75 39.42 57.34 BUN/Creatinine Ratio 35.0 H 34.8 H 34.7 H (10-20) Glucose 88 86 108 H (70-99(Fasting)) mg/dl Calcium 8.9 9.0 8.4 L (8.6-10.3) mg/dl Phosphorus 3.6 4.0 4.4 (2.5-4.9) mg/dl Magnesium 2.2 2.3 2.2 (1.7-2.4) mg/dl IMP Carbapenemase (VIRGEN) (NotDetected) KPC Carbapenemase (VIRGEN) (NotDetected) NDM Carbapenemase (VIRGEN) (NotDetected) OXA Carbapenemase (VIRGEN) (NotDetected) VIM Carbapenemase (VIRGEN) (NotDetected) 03/01/25 02/28/25 02/28/25 Range/Units 07:50 14:05 11:12 WBC 12.09 H 11.50 H (4.8-10.8) K/ul RBC 3.20 L 3.04 L (4.20-5.40) M/uL Hgb 9.0 L 8.7 L (12.0-16.0) g/dL Hct 29.1 L 27.5 L (37.0-47.0) % MCV 90.9 90.5 (80.0-100.0) fL MCH 28.1 28.6 (25.0-34.0) pg MCHC 30.9 L 31.6 L (32.0-36.0) g/dL RDW Std Deviation 48.4 H 48.2 H (36.4-46.3) fL RDW Coeff of Cain 14.7 H 14.8 H (11.5-14.5) % Plt Count 351 315 (130-400) K/uL MPV 10.3 9.9 (9.4-12.4) fL Sodium 144 144 (136-145) mmol/L Potassium 4.1 4.1 (3.5-5.1) mmol/L Chloride 115 H 116 H (98-107) mmol/L Carbon Dioxide 19 L 19 L (21-32) mmol/L Anion Gap 10 9 (3-11) BUN 29 H 27 H (6-23) mg/dl Creatinine 0.78 0.68 (0.6-1.2) mg/dl Est Cr Clr Drug Dosing 34.6 39.7 ml/min eGFR 78.18 89.64 BUN/Creatinine Ratio 37.2 H 39.7 H (10-20) Glucose 81 81 (70-99(Fasting)) mg/dl Calcium 8.4 L 8.5 L (8.6-10.3) mg/dl Phosphorus 3.7 4.0 (2.5-4.9) mg/dl Magnesium 1.9 2.0 (1.7-2.4) mg/dl IMP Carbapenemase (VIRGEN) NOT DETECTED (NotDetected) KPC Carbapenemase (VIRGEN) NOT DETECTED (NotDetected) NDM Carbapenemase (VIRGEN) NOT DETECTED (NotDetected) OXA Carbapenemase (VIRGEN) NOT DETECTED (NotDetected) VIM Carbapenemase (VIRGEN) NOT DETECTED (NotDetected) Diagnostic Findings Head CT 02/20/25 09:26 CT head/brain wo con CLINICAL HISTORY: 79 years-old Female with psych clearance. Acutely altered mental status TECHNIQUE: Multiple axial CT images of the head were obtained without contrast. A dose lowering technique was utilized adhering to the principles of ALARA. CT DOSE: 625.8 mGy.cm COMPARISON: 10/20/2024 FINDINGS: No acute intracranial hemorrhage, midline shift, intracranial mass, hydrocephalus, territorial ischemia or abnormal extra-axial collection. Involutional changes with white matter hypodensities suggestive of chronic microvascular scheme disease. The calvarium is intact. Prior bilateral lens repair. Paranasal sinus disease includes near complete opacification of the right maxillary sinus with mild mucoperiosteal thickening of the left maxillary sinus. IMPRESSION: No acute intracranial abnormality. ACT 112: Negative or not required by law. The above report was generated using voice recognition software. It may contain grammatical, syntax or spelling errors. Electronically signed by: Zeferino Solano M.D. 02/20/2025 11:37 AM Chest X-Ray 02/21/25 17:19 EXAM: Portable AP chest radiograph TECHNIQUE: AP portable radiograph of the chest was obtained. INDICATION: Shortness of breath Comparison: Chest radiograph October 24, 2024. FINDINGS: LINES and TUBES: Left-sided Port-A-Cath with tip projecting over the superior cavoatrial junction. CARDIOVASCULAR: Cardiac silhouette is stably enlarged. Atherosclerosis of the thoracic aorta. LUNGS/PLEURA: Moderate interstitial pulmonary edema. There are worsened perihilar densities that may represent alveolar component of pulmonary edema or multifocal pneumonia. No significant pleural fluid. No discernible pneumothorax. OSSEOUS/OTHER: No displaced acute osseous process identified. Surgical clips over the right axilla/chest wall. IMPRESSION: Redemonstration of CHF Worsened perihilar densities that may represent alveolar component of pulmonary edema or multifocal pneumonia. Electronically signed by Kameron Faye 02-21-2025 7:18 PM PG Care Time/CCT Total # of Minutes Spent Total Time Spent: 60 Total Time Spent with Patient: Total time spent is greater than 50% in coordination of care (as documented) at patient's floor/unit and/or counseling patient: [place] [address] IN/OBS CONSULT LVL 4,60M Patient Type New History Comprehensive Exam Comprehensive Medical Decision Making High Complexity Diagnoses Weakness generalized R53.1 Adult failure to thrive syndrome R62.7 Palliative care by specialist Z51.5 Discussion about advance care planning held with family member Z71.0
[2025-03-07 08:30] VITALS: RESP 16
--- NOTE | 2025-03-07 14:40 | Palliative Family Discussion ---
Date of Service March 07, 2025 Patient Directed Conference Time of Meetin:30 -12:15 Participants: ShlebyCarlene Lewis AGACNP Patient participation: no Patient Support System: cousin/HCPOA Seferino Lisa ([phone]) Other Healthcare Provider Participation: None Meeting Location: telephonic Advanced Directive available:no If yes, descriptors: The patient's surrogate medical decision maker participated: yes Legally authorized health care proxy: Seferino Lisa Other surrogate: Kandi Castorena A family meeting was held for KIRSTEN YEE. This meeting was necessary for determining the appropriate course of treatment. Topics of Discussion Topics of Discussion: 1. Opportunity given for participants to speak and ask questions. 2. Participants were assured of attention to patient comfort. 3. Reassurance provided. 4. Support was provided for informed, good-ejssica decisions. 5. Emotions expressed by family were acknowledged and addressed. 6. Follow-up Outpatient: n/a 7. Plan of Care: [employer], will require SNF for ongoing hospice care We discussed at length the patient's acute and chronic medical conditions, general prognosis, treatment options, and goals of care. Seferino shared that she had been quite concerned about Elise when whe could not reach her by phone. She shared concern for her progressive decline and concern that she is no longer able to live independently. She asked that I take phone to Elise's bedside that she might speak with her and I did. Elise did answer Seferino's questions but remain in guarded position with her eye cover/sleep mask on. Elise repeatedly replied that she has been told that she need to go to sleep until next Wednesday. We discussed prognosis based on the following prognostic scores (calculation based on pt's current condition): Palliative Prognostic Index (PPI) Score: 10.5 (PPI > 6 = approx survival of three weeks. Sensitivity 80% / Specificity 85%.) Wili CY, Hugo YS, Almendarez HM, Mast JS, Valdo TL, Neelima CY, Keith CC, Conchita YC, Chago JM, Mariana JH, Anival WC.Combination of initial palliative prognostic index and score change provides a better prognostic value for terminally ill cancer patients: a six- year observational cohort study https://www.ncbi.nlm.nih.gov/pubmed/15646502 . J Pain Symptom Manage. 2014;48(5):804-14. Palliative Prognostic Score (PaP - predicts 30 day survival probability in cancer and non cancer diagnoses): 14 = 30-day survival probability is less than 30% Vanita Trevizo.Independent validation of Palliative Prognostic Score in termi maira ill patients referred to a hospital-based palliative medicine consultation service https://www.ncbi.nlm.nih.gov/pubmed/87682747 . J Pain Symp Manage. 2001; 22(5):836361. Discussed that these prognostic scores are a general reflection of likely outcomes and that patient outcomes do vary. Seferino was thankful for the information and requests a transition to comfort care, she asked about placement in SNF for patient safety. Discussed hospice benefit: an interdisciplinary program offered by nurses, nurses aides, social workers, chaplains and a ophthalmic medical technician for patients with a terminal condition and a life expectancy of less than 6 months. Hospice care focuses on quality of life when a cure is no longer possible, or the burdens of treatment outweigh the benefits. Discussed that they will not receive curative treatments, but will receive medicine that enhances quality of life, such as treatment for high blood pressure, rapid heart rate, or anxiety. Hospice care includes pain and symptom management, emotional support, medications and medical supplies, coaching for caregivers, grief support, and may include special services like speech and physical therapy when needed. Hospice also provides a 24/7 call service. Seferino requests that we transition to [employer] WE[employer] HELPER at this time, she will be trying to visit in next several days. She shared concern that the pt's spouse recently and he was all alone, she would like some family to be with Elise when she dies but politely declined offer to continue current level of care until she arrives. Time Involved in Meeting: I spent 70 minutes overall addressing this case: 10 in medical data review/discussion with referring provider(s) and/or preparation for the visit 40 in direct interaction with the patient and her HCPOA 30 Advance Care Planning/Goals of Care discussions as detailed above in note (must be >16min) 10 in subsequent review and synthesis of assessment and plan 10 in communicating with other providers regarding the patient's case: primary team, BSRN, and CM
[2025-03-07 15:12] LABS: Anion Gap 8.0 (3-11); Blood Urea Nitrogen 44.0 mg/dl (6-23); Calcium 8.8 mg/dl (8.6-10.3); Carbon Dioxide 17.0 mmol/L (21-32); Chloride 124.0 mmol/L (98-107); Creatinine Clr Calc Pharmacy 24.8 ml/min; Glucose 81.0 mg/dl (70-99(Fasting)); Magnesium 2.0 mg/dl (1.7-2.4); Potassium 4.1 mmol/L (3.5-5.1); Sodium 149.0 mmol/L (136-145)
[2025-03-07] MEDS ORDERED: HALOPERIDOL ORAL SOLN 2 MG/ML PO PRN (15:49)
[2025-03-07] MEDS ORDERED: GLYCOPYRROLATE 0.2 MG/ML VIAL IV PRN (15:49)
[2025-03-07] MEDS ORDERED: HYOSCYAMINE SULFATE 0.125 MG TAB SL PRN (15:49)
[2025-03-07] MEDS ORDERED: ONDANSETRON INJ 2 MG/ML 2 ML VIAL IV PRN (15:49)
[2025-03-07] MEDS ORDERED: LORazepam Inj 0.5 MG in SYRINGE 0.25 ML IV PRN (15:49)
[2025-03-07] MEDS ORDERED: ATROPINE SULFATE 1% OP SOLN 5 ML BTL SL PRN (15:49)
[2025-03-07] MEDS ORDERED: MoRPHine SULFATE 2 MG/ML CARP IV PRN (15:49)
[2025-03-07 16:32] VITALS: BP 138/69; PULSE 86; TEMP 98.1; O2SAT 95
--- NOTE | 2025-03-07 17:15 | Hospitalist Progress Note ---
Date of Service March 07, 2025 Assessment & Plan (1) Acute dehydration: (2) Hypernatremia: (3) Adult failure to thrive syndrome: (4) Hypokalemia: Plan Patient is a 79y/o F with PMHx significant for malignant neoplasm of ovary, prediabetes, HLD, pulmonary hypertension, emphysema, chronic systolic heart failure, CAD, HTN, nonrheumatic mitral valve regurgitation, vitamin D deficiency, GERD, malignant neoplasm of large intestine and rectum, senile osteoporosis, malignant neoplasm of peritoneum, chronic PE anticoagulated on Eliquis, malignant neoplasm of intrapelvic lymph nodes, adjustment disorder with depressed mood, chronic depression with insomnia and hyponatremia/SIADH who presented to the ED via EMS due to inability to care for self. 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 Severe protein calorie malnutrition Hypokalemia Hypomagnesemia HTN NSVT/PAT Alcohol use disorder Suspected alcohol withdrawal Nodular focus of the basal RLL Abnormal thoracic and lumbar CT imaging noted last admission in October 2024 Medication noncompliance Chronic PE Chronic systolic CHF Moderate to severe mitral regurgitation Nonischemic cardiomyopathy HLD GERD History of bilateral breast cancer S/p surgery and chemoradiation History of metastatic ovarian cancer S/p debulking surgery and chemoradiation Despite aggressive management, patient showed no improvement Continues to refuse medications, noncompliance Palliative care on board Was transition to comfort measures only. Patient's POA aware, agrees with plan Continue comfort medications as needed CODE STATUS DNI DNR Disposition SNF with hospice when accepted Admission and Anticipated Discharge Date Admission Date: February 20, 2025 Subjective Patient is seen and examined at bedside Poor historian Palliative care discussed with family and transition to comfort measures only Very poor oral intake Refuses medications Denies any specific complaints. " Just usual stuff" Review of Systems Review of Systems: Other Physical Exam Physical Exam: Physical Exam: Vitals signs as noted above General Appearance: Thin, frail, elderly, no apparent distress Head: normocephalic, Atraumatic Eyes: normal inspection, EOMI Neck: supple, Trachea midline Respiratory/Chest: Normal breath sounds, CTA, + port, No accessory muscle use Cardiovascular: S1, S2, No murmur Abdomen/GI:Soft, Non tender, Bowel sounds present Extremities/Musculoskeletal:normal inspection, no edema Neurologic/Psych:grossly no focal neurological deficits Skin: normal color, warm Results & Data Results & Data Vital Signs (Past 12 Hours) Vital Signs Temp Pulse Pulse Resp BP Pulse Ox O2 Del Method 03/07/25 16:31 36.7 C 86 16 138/69 95 Room Air 03/07/25 14:26 82 03/07/25 11:25 Room Air 03/07/25 11:01 36.3 C L 80 16 124/63 100 Room Air 03/07/25 08:29 36.7 C 81 16 126/65 97 Room Air 03/07/25 07:18 79 Laboratory Results [facility] 03/07/25 14:34 Sodium 149 H Potassium 4.1 Chloride 124 H Carbon Dioxide 17 L BUN 44 H Creatinine 1.09 D Glucose 81 Calcium 8.8
--- NOTE | 2025-03-08 15:23 | Hospitalist Progress Note ---
Date of Service March 08, 2025 Assessment & Plan (1) Acute dehydration: (2) Hypernatremia: (3) Adult failure to thrive syndrome: (4) Hypokalemia: Plan Patient is a 79y/o F with PMHx significant for malignant neoplasm of ovary, prediabetes, HLD, pulmonary hypertension, emphysema, chronic systolic heart failure, CAD, HTN, nonrheumatic mitral valve regurgitation, vitamin D deficiency, GERD, malignant neoplasm of large intestine and rectum, senile osteoporosis, malignant neoplasm of peritoneum, chronic PE anticoagulated on Eliquis, malignant neoplasm of intrapelvic lymph nodes, adjustment disorder with depressed mood, chronic depression with insomnia and hyponatremia/SIADH who presented to the ED via EMS due to inability to care for self. 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 Severe protein calorie malnutrition Hypokalemia Hypomagnesemia HTN NSVT/PAT Alcohol use disorder Suspected alcohol withdrawal Nodular focus of the basal RLL Abnormal thoracic and lumbar CT imaging noted last admission in October 2024 Medication noncompliance Chronic PE Chronic systolic CHF Moderate to severe mitral regurgitation Nonischemic cardiomyopathy HLD GERD History of bilateral breast cancer S/p surgery and chemoradiation History of metastatic ovarian cancer S/p debulking surgery and chemoradiation Despite aggressive management, patient showed no improvement Continues to refuse medications, noncompliance Palliative care on board Was transition to comfort measures only. Patient's POA aware, agrees with plan Continue comfort medications as needed Plan to discharge to SNF when accepted CODE STATUS DNI DNR Disposition SNF with hospice Admission and Anticipated Discharge Date Admission Date: February 20, 2025 Subjective Patient is seen and examined at bedside Currently on comfort measures only Poor historian Waiting for placement Offers no new complaints No distress on exam today Review of Systems Review of Systems: All systems reviewed & are unremarkable except as noted in Subjective Physical Exam Physical Exam: Physical Exam: Vitals signs as noted above General Appearance: Thin, frail, elderly, no apparent distress Head: normocephalic, Atraumatic Eyes: normal inspection, EOMI Neck: supple, Trachea midline Respiratory/Chest: Normal breath sounds, CTA, + port, No accessory muscle use Cardiovascular: S1, S2, No murmur Abdomen/GI:Soft, Non tender, Bowel sounds present Extremities/Musculoskeletal:normal inspection, no edema Neurologic/Psych:grossly no focal neurological deficits Skin: normal color, warm
--- NOTE | 2025-03-09 14:34 | Palliative Care Progress Note ---
Date of Service March 09, 2025 Assessment & Plan (1) Weakness generalized: (2) Adult failure to thrive syndrome: (3) Palliative care by specialist: Plan: Palliative care will continue to follow for ongoing EOL pt care and family support. Spoke with JIE today by phone, she is requesting information on [employer]. We discussed criteria for GIP hospice and that pt currently does not meet criteria. SHe requests that CM be made aware of desire for placement in SNF near [place] to be closer to family. CM aware. Spent 30 minutes discussing patient plan of care and offering anticipatory guidance. Discussed changes pt may move through in the dying process including but not limited to sleeping more, disorientation when awake, restlessness, diminished senses/inability to respond to stimulus although ability to be aware of them remains intact longer, and changes in body temperatures, skin changes/mottling/cyanosis, respiratory pattern changes, and oral secretions. Family verbalized understanding. The goal is to assure a peaceful . (4) Comfort measures only status: Plan: Transitioned to ELECT[employer] TECHN[employer] DEPARTMENT CHAIR on 03/07/25. (5) Need for comfort care: Plan: Comfort plan of care parameters: 1. Patient/Family want hospice added to their care. 2. NO rehab/PT/OT 3. Strictly End of Life care only 4. NO escalation of care: do not increase oxygen, escalate therapies, etc. The focus is on comfort through end of life, assure this is accomplished with aggressive symptom management (i.e. relief of dyspnea, pain, etc.) 5. NO return to hospital 6. NO labs, imaging, surgery 7. Oral intake as desired for comfort and pleasure: NO dietary restriction, Allow permissive aspiration, do not withhold food or drink for concern of aspiration and allow PO for pleasure and comfort. 8. If difficulty urinating/commode/bedpan, ok to place Marie catheter for comfort/hygiene/skin protection AND/OR Continue Marie catheter for comfort/hygiene/skin protection 9. NO: calorie counts, artificial nutrition, feeding tubes or IV fluids EOL Symptom manamgement: Pain/dyspnea/tachypnea morphine 2mg IVP PRN [id number] Consider titratable morphine drip if pt requires >3 PRN doses in under two consecutive hours. Nausea/vomitting zofran 4mg IVP q4h PRN Agitation ativan 0.5mg IVP q4h PRN Hyperactive delirium haldol 5mg IVP q6h PRN Secretions - if repositioning not effective robinul 0.4mg IV q4h PRN atropine SL 3 drops Q1h PRN Nursing care: Discontinue all medications not directed towards comfort. Detether pt from IV tubing, monitor cables, and check vitals once per shift. Please continue HFNC and titrate down as able for patient comfort. Use medications above PRN for dyspnea/tachypnea and do not increase oxygen once titrated down. Assess q1h for pain/dyspnea and treat accordingly. Plan [employer] TECH[employer] DEPARTMENT CHAIR, pending placement SNF with hospice. Admission and Anticipated Discharge Date Admission Date: February 20, 2025 Subjective Assessed pt at bedside, she remains confused and request I allow her to sleep for another week. Pt appears comfortable, minimal PRN medication requirement. VSS. Poor PO intake continues. Review of Systems Review of Systems: All systems reviewed & are unremarkable except as noted in Subjective Physical Exam Constitutional: + ill appearing, + cachectic, + frail ap pearing, cooperative and comfortable; no acute distress Eyes: PERRL, conjunctivae normal, anicteric sclerae Neck: trachea midline, no thyromegaly Cardiovascular: RRR, no murmur, no edema Gastrointestinal (Abdomen): normal bowel sounds, soft, nontender, no hepatosplenomegaly Skin: no rashes, warm and dry + turgor decreased and + pallor Neurologic: PERRL, EOMI, accommodation nl, no face palsy, no dysarthria Psychiatric: Orientation: alert, oriented to person and cooperative Results & Data Vital Signs (Past 12 Hours) Vital Signs O2 Del Method 03/09/25 09:42 Room Air Laboratory Results No further labs or diagnostics in concert with comfort directed care. Diagnostic Findings No further labs or diagnostics in concert with comfort directed care. Medications Administered Current Inpatient Medications Acetaminophen (Acetaminophen 325 Mg Tab) 650 mg PO Q4H PRN PRN Reason: Pain or Fever Stop: 03/22/25 15:33 Last Admin: 03/09/25 08:36 Dose: 650 mg Atropine Sulfate (Atropine Sulfate 1% Op Soln 5 Ml Btl) 4 drops SL Q1H PRN PRN Reason: Secretions or pulm congestion Stop: 04/06/25 15:48 Diclofenac Sodium (Diclofenac Sod 1% Gel 100 Gm Tube) 2 gm EXT Q6H PRN; Protocol PRN Reason: leg pain Stop: 03/25/25 04:51 Last Admin: 02/24/25 05:59 Dose: 2 gm Docusate Sodium (Docusate Sodium 100 Mg Cap) 100 mg PO BID CHRISTINE Stop: 03/22/25 20:59 Last Admin: 03/09/25 08:40 Dose: Not Given Glycopyrrolate (Glycopyrrolate 0.2 Mg/Ml Vial) 0.4 mg IV Q4H PRN PRN Reason: Rattling Secretions or Pulm Congestion Stop: 04/06/25 15:48 Haloperidol (Haloperidol Oral Soln 2 Mg/Ml) 0.5 mg PO Q4H PRN PRN Reason: Anxiety/Agitation Stop: 04/06/25 15:48 Heparin Sodium (Porcine) (Heparin 100 Unit/Ml 5ml Flush) 5 ml FLUSH PRN PRN PRN Reason: Flush Stop: 03/23/25 05:53 Last Admin: 03/01/25 08:45 Dose: 5 ml Hyoscyamine (Hyoscyamine Sulfate 0.125 Mg Tab) 0.125 mg SL Q4H PRN PRN Reason: Secretions or Pulm Congestion Stop: 04/06/25 15:48 Lorazepam 0.5 mg/ Syringe 0.5 mls @ 2 mls/min IV Q4H PRN PRN Reason: Anxiety/Agitation Stop: 04/06/25 15:48 Lactobacillus Acidophilus (Advanced Probiotic 625 Mg Capsule) 1,250 mg PO DAILY [facility] Stop: 03/24/25 15:29 Last Admin: 03/09/25 08:40 Dose: Not Given Magnesium Chloride (Magnesium Chloride W/Calcium 64mg Delayed Rel Tab) 64 mg PO TID CHRISTINE Stop: 03/22/25 20:59 Last Admin: 03/09/25 08:40 Dose: Not Given Magnesium Hydroxide (Magnesium Hydroxide Susp 30 Ml Udc) 30 ml PO Q12H PRN PRN Reason: Constipation Stop: 03/22/25 15:33 Melatonin (Melatonin 3 Mg Tab) 3 mg PO HS PRN PRN Reason: Sleep Stop: 03/22/25 19:30 Last Admin: 03/05/25 21:06 Dose: 3 mg Metoprolol Succinate (Metoprolol Succ 25mg Ext Rel Tab) 12.5 mg PO BID [facility] Stop: 04/01/25 20:59 Last Admin: 03/09/25 08:40 Dose: Not Given Mirtazapine (Mirtazapine Tab 15 Mg Tab) 7.5 mg PO HS [facility] Stop: 03/23/25 20:59 Last Admin: 03/08/25 20:02 Dose: Not Given Morphine Sulfate (Morphine Sulfate 10 Mg/0.5 Ml Udp) 5 mg PO Q3H PRN PRN Reason: Pain or Respiratory Distress Stop: 03/21/25 15:48 Morphine Sulfate (Morphine Sulfate 2 Mg/Ml Carp) 2 mg IV Q2H PRN PRN Reason: Pain or Respiratory Distress Stop: 03/21/25 15:48 Ondansetron HCl (Ondansetron Inj 2 Mg/Ml 2 Ml Vial) 4 mg IV Q6H PRN PRN Reason: Nausea Stop: 03/22/25 15:33 Ondansetron HCl (Ondansetron Inj 2 Mg/Ml 2 Ml Vial) 4 mg IV Q4H PRN PRN Reason: Nausea &/or Vomiting Stop: 04/06/25 15:48 Pantoprazole Sodium (Pantoprazole 40 Mg Tab) 40 mg PO BID [facility] Stop: 03/22/25 20:59 Last Admin: 03/09/25 08:40 Dose: Not Given Polyethylene Glycol (Polyethylene (Miralax) 17 Gm Pack) 17 gm PO DAILY PRN PRN Reason: Constipation Stop: 03/22/25 15:33 Sertraline HCl (Sertraline Hcl 50 Mg Tablet) 25 mg PO QAM [facility] Stop: 03/23/25 12:44 Last Admin: 03/09/25 08:40 Dose: Not Given PG Care Time/CCT Total # of Minutes Spent Total Time Spent with Patient: Total time spent is greater than 50% in coordination of care (as documented) at patient's floor/unit and/or counseling patient: Advanced Care Planning 83781 Advanced Care Planning 30 Min [place] [address] SUB INP/OBS CARE 04/08MIN Patient Type Established History Problem Focused Exam Problem Focused Medical Decision Making Low Complexity Diagnoses Weakness generalized R53.1 Adult failure to thrive syndrome R62.7 Palliative care by specialist Z51.5 Comfort measures only status Z51.5 Need for comfort care Additional Codes Advanced Care Planning - 25891 Advanced Care Planning 30 Min: 05533 Advanced Care Planning 30 Min ([id number])
--- NOTE | 2025-03-09 15:23 | Hospitalist Progress Note ---
Date of Service March 09, 2025 Assessment & Plan (1) Acute dehydration: (2) Hypernatremia: (3) Adult failure to thrive syndrome: (4) Hypokalemia: Plan Patient is a 79y/o F with PMHx significant for malignant neoplasm of ovary, prediabetes, HLD, pulmonary hypertension, emphysema, chronic systolic heart failure, CAD, HTN, nonrheumatic mitral valve regurgitation, vitamin D deficiency, GERD, malignant neoplasm of large intestine and rectum, senile osteoporosis, malignant neoplasm of peritoneum, chronic PE anticoagulated on Eliquis, malignant neoplasm of intrapelvic lymph nodes, adjustment disorder with depressed mood, chronic depression with insomnia and hyponatremia/SIADH who presented to the ED via EMS due to inability to care for self. 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 Severe protein calorie malnutrition Hypokalemia Hypomagnesemia HTN NSVT/PAT Alcohol use disorder Suspected alcohol withdrawal Nodular focus of the basal RLL Abnormal thoracic and lumbar CT imaging noted last admission in October 2024 Medication noncompliance Chronic PE Chronic systolic CHF Moderate to severe mitral regurgitation Nonischemic cardiomyopathy HLD GERD History of bilateral breast cancer S/p surgery and chemoradiation History of metastatic ovarian cancer S/p debulking surgery and chemoradiation Despite aggressive management, patient showed no improvement Continues to refuse medications, noncompliance Palliative care on board Was transition to comfort measures only. Patient's POA aware, agrees with plan Continue comfort medications as needed Encouraged to increase oral intake Plan to discharge to SNF with hospice when accepted CODE STATUS DNI DNR Disposition SNF with hospice as able Admission and Anticipated Discharge Date Admission Date: February 20, 2025 Subjective Patient is seen and examined at bedside No distress on exam Offers no new complaints Discussed with patient's family at bedside on comfort measures only Waiting for placement Review of Systems Review of Systems: All systems reviewed & are unremarkable except as noted in Subjective Physical Exam Physical Exam: Physical Exam: Vitals signs as noted above General Appearance: Thin, frail, elderly, no apparent distress Head: normocephalic, Atraumatic Eyes: normal inspection, EOMI Neck: supple, Trachea midline Respiratory/Chest: Normal breath sounds, CTA, + port, No accessory muscle use Cardiovascular: S1, S2, No murmur Abdomen/GI:Soft, Non tender, Bowel sounds present Extremities/Musculoskeletal:normal inspection, no edema Neurologic/Psych:grossly no focal neurological deficits Skin: normal color, warm Results & Data Results & Data Vital Signs (Past 12 Hours) Vital Signs O2 Del Method 03/09/25 09:42 Room Air
--- NOTE | 2025-03-10 14:50 | Hospitalist Progress Note ---
Date of Service March 10, 2025 Assessment & Plan (1) Acute dehydration: (2) Hypernatremia: (3) Adult failure to thrive syndrome: (4) Hypokalemia: Plan Patient is a 79y/o F with PMHx significant for malignant neoplasm of ovary, prediabetes, HLD, pulmonary hypertension, emphysema, chronic systolic heart failure, CAD, HTN, nonrheumatic mitral valve regurgitation, vitamin D deficiency, GERD, malignant neoplasm of large intestine and rectum, senile osteoporosis, malignant neoplasm of peritoneum, chronic PE anticoagulated on Eliquis, malignant neoplasm of intrapelvic lymph nodes, adjustment disorder with depressed mood, chronic depression with insomnia and hyponatremia/SIADH who presented to the ED via EMS due to inability to care for self. 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 Severe protein calorie malnutrition Hypokalemia Hypomagnesemia HTN NSVT/PAT Alcohol use disorder Suspected alcohol withdrawal Nodular focus of the basal RLL Abnormal thoracic and lumbar CT imaging noted last admission in October 2024 Medication noncompliance Chronic PE Chronic systolic CHF Moderate to severe mitral regurgitation Nonischemic cardiomyopathy HLD GERD History of bilateral breast cancer S/p surgery and chemoradiation History of metastatic ovarian cancer S/p debulking surgery and chemoradiation Despite aggressive management, patient showed no improvement Continues to refuse medications, noncompliance Palliative care on board Was transition to comfort measures only. Patient's POA aware, agrees with plan Continue comfort medications as needed Encouraged to increase oral intake Plan to discharge to SNF with hospice when accepted Waiting for placement No distress on exam today CODE STATUS DNI DNR Disposition SNF with hospice as able Admission and Anticipated Discharge Date Admission Date: February 20, 2025 Subjective Patient is seen and examined at bedside Lethargic, drowsy during my encounter No distress on exam on comfort measures only Waiting for placement Review of Systems Review of Systems: Other Physical Exam Physical Exam: Physical Exam: Vitals signs as noted above General Appearance: Thin, frail, elderly, no apparent distress Head: normocephalic, Atraumatic Eyes: normal inspection, EOMI Neck: supple, Trachea midline Respiratory/Chest: Normal breath sounds, CTA, + port, No accessory muscle use Cardiovascular: S1, S2, No murmur Abdomen/GI:Soft, Non tender, Bowel sounds present Extremities/Musculoskeletal:normal inspection, no edema Neurologic/Psych:grossly no focal neurological deficits Skin: normal color, warm Results & Data Results & Data Vital Signs (Past 12 Hours) Vital Signs O2 Del Method 03/10/25 07:42 Room Air
--- NOTE | 2025-03-11 12:44 | Hospitalist Progress Note ---
Date of Service March 11, 2025 Assessment & Plan (1) Acute dehydration: (2) Hypernatremia: (3) Adult failure to thrive syndrome: (4) Hypokalemia: Plan Patient is a 79y/o F with PMHx significant for malignant neoplasm of ovary, prediabetes, HLD, pulmonary hypertension, emphysema, chronic systolic heart failure, CAD, HTN, nonrheumatic mitral valve regurgitation, vitamin D deficiency, GERD, malignant neoplasm of large intestine and rectum, senile osteoporosis, malignant neoplasm of peritoneum, chronic PE anticoagulated on Eliquis, malignant neoplasm of intrapelvic lymph nodes, adjustment disorder with depressed mood, chronic depression with insomnia and hyponatremia/SIADH who presented to the ED via EMS due to inability to care for self. 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 Severe protein calorie malnutrition Hypokalemia Hypomagnesemia HTN NSVT/PAT Alcohol use disorder Suspected alcohol withdrawal Nodular focus of the basal RLL Abnormal thoracic and lumbar CT imaging noted last admission in October 2024 Medication noncompliance Chronic PE Chronic systolic CHF Moderate to severe mitral regurgitation Nonischemic cardiomyopathy HLD GERD History of bilateral breast cancer S/p surgery and chemoradiation History of metastatic ovarian cancer S/p debulking surgery and chemoradiation Despite aggressive management, patient showed no improvement Continues to refuse medications, noncompliance Palliative care on board Was transition to comfort measures only. Patient's POA aware, agrees with plan Continue comfort medications as needed Plan to discharge to SNF with hospice when accepted Waiting for placement Continue current management CODE STATUS DNI DNR Disposition SNF with hospice as able Case management to help with discharge planning Admission and Anticipated Discharge Date Admission Date: February 20, 2025 Subjective Patient is seen and examined at bedside Pleasantly confused, lethargic during my encounter on comfort measures only No distress Waiting for placement Review of Systems Review of Systems: All systems reviewed & are unremarkable except as noted in Subjective Physical Exam Physical Exam: Physical Exam: Vitals signs as noted above General Appearance: Thin, frail, elderly, no apparent distress Head: normocephalic, Atraumatic Eyes: normal inspection, EOMI Neck: supple, Trachea midline Respiratory/Chest: Normal breath sounds, CTA, + port, No accessory muscle use Cardiovascular: S1, S2, No murmur Abdomen/GI:Soft, Non tender, Bowel sounds present Extremities/Musculoskeletal:normal inspection, no edema Neurologic/Psych:grossly no focal neurological deficits Skin: normal color, warm
[2025-03-11] MEDS: MoRPHine SULFATE 10 MG/0.5 ML UDP PO PRN (20:44)
--- NOTE | 2025-03-12 09:29 | Palliative Care Progress Note ---
Date of Service March 12, 2025 Assessment & Plan (1) Weakness generalized: (2) Adult failure to thrive syndrome: (3) Palliative care by specialist: Plan: Palliative care will continue to follow for ongoing EOL pt care and family support. Spoke with JIE today by phone, she is requesting information on [facility]. We discussed criteria for [facility] hospice and that pt currently does not meet criteria. SHe requests that CM be made aware of desire for placement in SNF near [place] to be closer to family. CM aware. Spent 30 minutes discussing patient plan of care and offering anticipatory guidance. Made Zahra aware that patient has been more lethargic and less interactive, with little to no PO intake over weekend. Reassured her that this is normal in the dying process and encouraged visitation. Reinforced previous discussion changes pt may move through in the dying process including but not limited to sleeping more, disorientation when awake, restlessness, diminished senses/inability to respond to stimulus although ability to be aware of them rem ains intact longer, and changes in body temperatures, skin changes/mottling/cyanosis, respiratory pattern changes, and oral secretions. Family verbalized understanding. The goal is to assure a peaceful . (4) Comfort measures only status: Plan: Transitioned to [facility] on 03/07/25. (5) Need for comfort care: Plan: Comfort plan of care parameters: 1. Patient/Family want hospice added to their care. 2. NO rehab/PT/OT 3. Strictly End of Life care only 4. NO escalation of care: do not increase oxygen, escalate therapies, etc. The focus is on comfort through end of life, assure this is accomplished with aggressive symptom management (i.e. relief of dyspnea, pain, etc.) 5. NO return to hospital 6. NO labs, imaging, surgery 7. Oral intake as desired for comfort and pleasure: NO dietary restriction, Allow permissive aspiration, do not withhold food or drink for concern of aspiration and allow PO for pleasure and comfort. 8. If difficulty urinating/commode/bedpan, ok to place Marie catheter for comfort/hygiene/skin protection AND/OR Continue Marie catheter for comfort/hygiene/skin protection 9. NO: calorie counts, artificial nutrition, feeding tubes or IV fluids EOL Symptom manamgement: Pain/dyspnea/tachypnea morphine 2mg IVP PRN [id number] Consider titratable morphine drip if pt requires >3 PRN doses in under two consecutive hours. Nausea/vomitting zofran 4mg IVP q4h PRN Agitation ativan 0.5mg IVP q4h PRN Hyperactive delirium haldol 5mg IVP q6h PRN Secretions - if repositioning not effective robinul 0.4mg IV q4h PRN atropine SL 3 drops Q1h PRN Nursing care: Discontinue all medications not directed towards comfort. Detether pt from IV tubing, monitor cables, and check vitals once per shift. Please continue HFNC and titrate down as able for patient comfort. Use medications above PRN for dyspnea/tachypnea and do not increase oxygen once titrated down. Assess q1h for pain/dyspnea and treat accordingly. Plan [facility], pending placement SNF with hospice. Admission and Anticipated Discharge Date Admission Date: February 20, 2025 Subjective Assessed pt at bedside, she was transitioned to [facility] on 03/07/25, pending SNF placement for ongoing hospice care. Pt remains drowsy but arousable, mostly non-communicative other that to say she is tired and wants to sleep. Respiratory effort normal, NAD on RA. She has had minimal PRN medication requirement over weekend. No visitors at bedside, HCPOA/cousin updated by phone. Review of Systems Review of Systems: All systems reviewed & are unremarkable except as noted in Subjective Physical Exam Constitutional: + ill appearing, + cachectic, + frail ap pearing, cooperative and comfortable; no acute distress Eyes: PERRL, conjunctivae normal, anicteric sclerae Neck: trachea midline, no thyromegaly Cardiovascular: RRR, no murmur, no edema Gastrointestinal (Abdomen): normal bowel sounds, soft, nontender, no hepatosplenomegaly Skin: no rashes, warm and dry + turgor decreased and + pallor Neurologic: PERRL, EOMI, accommodation nl, no face palsy, no dysarthria Psychiatric: Orientation: alert, oriented to person and cooperative Results & Data Vital Signs (Past 12 Hours) Vital Signs Temp 36.7 C 03/07/25 16:31 Pulse 86 03/07/25 16:31 Resp 16 03/07/25 16:31 BP 138/69 03/07/25 16:31 Pulse Ox 95 03/07/25 16:31 O2 Del Method Room Air 03/10/25 21:30 O2 Flow Rate 2 03/02/25 01:38 Intake & Output 03/11/25 03/12/25 03/12/25 18:59 06:59 18:59 Other: # Unmeasured Voids 1 1 Laboratory Results No further labs or diagnostics in concert with comfort directed care. Diagnostic Findings No further labs or diagnostics in concert with comfort directed care. Medications Administered Current Inpatient Medications Acetaminophen (Acetaminophen 325 Mg Tab) 650 mg PO Q4H PRN PRN Reason: Pain or Fever Stop: 03/22/25 15:33 Last Admin: 03/09/25 08:36 Dose: 650 mg Atropine Sulfate (Atropine Sulfate 1% Op Soln 5 Ml Btl) 4 drops SL Q1H PRN PRN Reason: Secretions or pulm congestion Stop: 04/06/25 15:48 Diclofenac Sodium (Diclofenac Sod 1% Gel 100 Gm Tube) 2 gm EXT Q6H PRN; Protocol PRN Reason: leg pain Stop: 03/25/25 04:51 Last Admin: 02/24/25 05:59 Dose: 2 gm Docusate Sodium (Docusate Sodium 100 Mg Cap) 100 mg PO BID [facility] Stop: 03/22/25 20:59 Last Admin: 03/12/25 09:02 Dose: Not Given Glycopyrrolate (Glycopyrrolate 0.2 Mg/Ml Vial) 0.4 mg IV Q4H PRN PRN Reason: Rattling Secretions or Pulm Congestion Stop: 04/06/25 15:48 Haloperidol (Haloperidol Oral Soln 2 Mg/Ml) 0.5 mg PO Q4H PRN PRN Reason: Anxiety/Agitation Stop: 04/06/25 15:48 Heparin Sodium (Porcine) (Heparin 100 Unit/Ml 5ml Flush) 5 ml FLUSH PRN PRN PRN Reason: Flush Stop: 03/23/25 05:53 Last Admin: 03/01/25 08:45 Dose: 5 ml Hyoscyamine (Hyoscyamine Sulfate 0.125 Mg Tab) 0.125 mg SL Q4H PRN PRN Reason: Secretions or Pulm Congestion Stop: 04/06/25 15:48 Lorazepam 0.5 mg/ Syringe 0.5 mls @ 2 mls/min IV Q4H PRN PRN Reason: Anxiety/Agitation Stop: 04/06/25 15:48 Lactobacillus Acidophilus (Advanced Probiotic 625 Mg Capsule) 1,250 mg PO DAILY [facility] Stop: 03/24/25 15:29 Last Admin: 03/12/25 09:02 Dose: Not Given Magnesium Chloride (Magnesium Chloride W/Calcium 64mg Delayed Rel Tab) 64 mg PO TID [facility] Stop: 03/22/25 20:59 Last Admin: 03/12/25 09:02 Dose: Not Given Magnesium Hydroxide (Magnesium Hydroxide Susp 30 Ml Udc) 30 ml PO Q12H PRN PRN Reason: Constipation Stop: 03/22/25 15:33 Melatonin (Melatonin 3 Mg Tab) 3 mg PO HS PRN PRN Reason: Sleep Stop: 03/22/25 19:30 Last Admin: 03/05/25 21:06 Dose: 3 mg Metoprolol Succinate (Metoprolol Succ 25mg Ext Rel Tab) 12.5 mg PO BID [facility] Stop: 04/01/25 20:59 Last Admin: 03/12/25 09:02 Dose: Not Given Mirtazapine (Mirtazapine Tab 15 Mg Tab) 7.5 mg PO HS [facility] Stop: 03/23/25 20:59 Last Admin: 03/11/25 21:23 Dose: Not Given Morphine Sulfate (Morphine Sulfate 10 Mg/0.5 Ml Udp) 5 mg PO Q3H PRN PRN Reason: Pain or Respiratory Distress Stop: 03/21/25 15:48 Last Admin: 03/12/25 09:20 Dose: 5 mg Morphine Sulfate (Morphine Sulfate 2 Mg/Ml Carp) 2 mg IV Q2H PRN PRN Reason: Pain or Respiratory Distress Stop: 03/21/25 15:48 Ondansetron HCl (Ondansetron Inj 2 Mg/Ml 2 Ml Vial) 4 mg IV Q6H PRN PRN Reason: Nausea Stop: 03/22/25 15:33 Ondansetron HCl (Ondansetron Inj 2 Mg/Ml 2 Ml Vial) 4 mg IV Q4H PRN PRN Reason: Nausea &/or Vomiting Stop: 04/06/25 15:48 Pantoprazole Sodium (Pantoprazole 40 Mg Tab) 40 mg PO BID [facility] Stop: 03/22/25 20:59 Last Admin: 03/12/25 09:02 Dose: Not Given Polyethylene Glycol (Polyethylene (Miralax) 17 Gm Pack) 17 gm PO DAILY PRN PRN Reason: Constipation Stop: 03/22/25 15:33 Sertraline HCl (Sertraline Hcl 50 Mg Tablet) 25 mg PO QAM [facility] Stop: 03/23/25 12:44 Last Admin: 03/12/25 09:03 Dose: Not Given PG Care Time/CCT Total # of Minutes Spent Total Time Spent with Patient: Total time spent is greater than 50% in coordination of care (as documented) at patient's floor/unit and/or counseling patient: Advanced Care Planning 16845 Advanced Care Planning 30 Min C[place] [address] SUB INP/OBS CARE 2/35MIN Patient Type Established History Problem Focused Exam Problem Focused Medical Decision Making Low Complexity Diagnoses Weakness generalized R53.1 Adult failure to thrive syndrome R62.7 Palliative care by specialist Z51.5 Comfort measures only status Z51.5 Need for comfort care Additional Codes Advanced Care Planning - 32922 Advanced Care Planning 30 Min: 72711 Advanced Care Planning 30 Min ([id number])
--- NOTE | 2025-03-12 17:43 | Hospitalist Progress Note ---
Date of Service March 12, 2025 Assessment & Plan (1) Acute dehydration: (2) Hypernatremia: (3) Adult failure to thrive syndrome: (4) Hypokalemia: Plan Patient is a 79y/o F with PMHx significant for malignant neoplasm of ovary, prediabetes, HLD, pulmonary hypertension, emphysema, chronic systolic heart failure, CAD, HTN, nonrheumatic mitral valve regurgitation, vitamin D deficiency, GERD, malignant neoplasm of large intestine and rectum, senile osteoporosis, malignant neoplasm of peritoneum, chronic PE anticoagulated on Eliquis, malignant neoplasm of intrapelvic lymph nodes, adjustment disorder with depressed mood, chronic depression with insomnia and hyponatremia/SIADH who presented to the ED via EMS due to inability to care for self. 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 Severe protein calorie malnutrition Hypokalemia Hypomagnesemia HTN NSVT/PAT Alcohol use disorder Suspected alcohol withdrawal Nodular focus of the basal RLL Abnormal thoracic and lumbar CT imaging noted last admission in October 2024 Medication noncompliance Chronic PE Chronic systolic CHF Moderate to severe mitral regurgitation Nonischemic cardiomyopathy HLD GERD History of bilateral breast cancer S/p surgery and chemoradiation History of metastatic ovarian cancer S/p debulking surgery and chemoradiation Despite aggressive management, patient showed no improvement Continues to refuse medications, noncompliance Palliative care on board Was transition to comfort measures only. Patient's POA aware, agrees with plan Continue comfort medications as needed Plan to discharge to SNF with hospice when accepted Waiting for placement Continue current management Palliative care following CODE STATUS DNI DNR Disposition SNF with hospice as able Case management to help with discharge planning Admission and Anticipated Discharge Date Admission Date: February 20, 2025 Subjective Patient is seen and examined at bedside Currently on comfort measures only Patient unable to provide much history Discussed with patient's family at bedside Palliative care following Clinically seems to be deteriorating Waiting for placement Review of Systems Review of Systems: Other Physical Exam Physical Exam: Physical Exam: Vitals signs as noted above General Appearance: Thin, frail, elderly, no apparent distress Head: normocephalic, Atraumatic Eyes: normal inspection, EOMI Neck: supple, Trachea midline Respiratory/Chest: Normal breath sounds, CTA, + port, No accessory muscle use Cardiovascular: S1, S2, No murmur Abdomen/GI:Soft, Non tender, Bowel sounds present Extremities/Musculoskeletal:normal inspection, no edema Neurologic/Psych:grossly no focal neurological deficits Skin: normal color, warm Results & Data Results & Data Vital Signs (Past 12 Hours) Vital Signs O2 Del Method 03/12/25 07:10 Room Air
--- NOTE | 2025-03-13 13:38 | Palliative Care Progress Note ---
Date of Service March 13, 2025 Assessment & Plan (1) Weakness generalized: (2) Adult failure to thrive syndrome: (3) Palliative care by specialist: Plan: Palliative care will continue to follow for ongoing EOL pt care and family support. Spoke with TAMMYOA today by phone. I shared with Zahra that pt is exhibiting changes c/w transition to a more active dying process and encouraged visitation. She shared that she has an 8hr drive to get here and will plan on leaving her home early tomorrow morning, weather permitting. Spent 30 minutes discussing plan of care and offering anticipatory guidance. Made Zahra aware that patient has been more lethargic with changes in breathing patterns and skin color c/w transition to active dying. Reassured her that this is normal in the dying process and encouraged visitation. Reinforced previous discussion changes pt may move through in the dying process including but not limited to sleeping more, disorientation when awake, restlessness, diminished senses/inability to respond to stimulus although ability to be aware of them remains intact longer, and changes in body temperatures, skin changes/mottling/cyanosis, respiratory pattern changes, and oral secretions. Family verbalized understanding. The goal is to assure a peaceful . (4) Comfort measures only status: Plan: Transitioned to [facility] [facility] [facility] on 03/07/25. (5) Need for comfort care: Plan: Comfort plan of care parameters: 1. Patient/Family want hospice added to their care. 2. NO rehab/PT/OT 3. Strictly End of Life care only 4. NO escalation of care: do not increase oxygen, escalate therapies, etc. The focus is on comfort through end of life, assure this is accomplished with aggressive symptom management (i.e. relief of dyspnea, pain, etc.) 5. NO return to hospital 6. NO labs, imaging, surgery 7. Oral intake as desired for comfort and pleasure: NO dietary restriction, Allow permissive aspiration, do not withhold food or drink for concern of aspiration and allow PO for pleasure and comfort. 8. If difficulty urinating/commode/bedpan, ok to place Marie catheter for comfort/hygiene/skin protection AND/OR Continue Marie catheter for comfort/hygiene/skin protection 9. NO: calorie counts, artificial nutrition, feeding tubes or IV fluids EOL Symptom manamgement: Pain/dyspnea/tachypnea morphine 2mg IVP PRN [id number] Consider titratable morphine drip if pt requires >3 PRN doses in under two consecutive hours. Nausea/vomitting zofran 4mg IVP q4h PRN Agitation ativan 0.5mg IVP q4h PRN Hyperactive delirium haldol 5mg IVP q6h PRN Secretions - if repositioning not effective robinul 0.4mg IV q4h PRN atropine SL 3 drops Q1h PRN Nursing care: Discontinue all medications not directed towards comfort. Detether pt from IV tubing, monitor cables, and check vitals once per shift. Please continue HFNC and titrate down as able for patient comfort. Use medications above PRN for dyspnea/tachypnea and do not increase oxygen once titrated down. Assess q1h for pain/dyspnea and treat accordingly. Plan [employer] [facility] [facility], pending placement SNF with hospice. Admission and Anticipated Discharge Date Admission Date: February 20, 2025 Subjective Assessed pt at bedside, she was transitioned to [employer] [facility] [facility]ATE on 03/07/25, pending SNF placement for ongoing hospice care. Pt notably more lethargic today, opens eyes to voice but offers no verbal response. Respiratory effort increased, NAD on RA. She has had increased PRN medication requirement overnight. No visitors at bedside, HCPOA/cousin updated by phone and visitation encouraged. Review of Systems Review of Systems: All systems reviewed & are unremarkable except as noted in Subjective Physical Exam Constitutional: + ill appearing, + cachectic, + frail ap pearing, cooperative and comfortable; no acute distress Eyes: PERRL, conjunctivae normal, anicteric sclerae Neck: trachea midline, no thyromegaly Cardiovascular: RRR, no murmur, no edema Gastrointestinal (Abdomen): normal bowel sounds, soft, nontender, no hepato splenomegaly Skin: no rashes, warm and dry + turgor decreased and + pallor Neurologic: PERRL, EOMI, accommodation nl, no face palsy, no dysarthria Psychiatric: Orientation: alert, oriented to person and cooperative Results & Data Vital Signs (Past 12 Hours) Vital Signs O2 Del Method 03/13/25 11:16 Room Air Laboratory Results No further labs or diagnostics in concert with comfort directed care. Diagnostic Findings No further labs or diagnostics in concert with comfort directed care. Medications Administered Current Inpatient Medications Acetaminophen (Acetaminophen 325 Mg Tab) 650 mg PO Q4H PRN PRN Reason: Pain or Fever Stop: 03/22/25 15:33 Last Admin: 03/09/25 08:36 Dose: 650 mg Atropine Sulfate (Atropine Sulfate 1% Op Soln 5 Ml Btl) 4 drops SL Q1H PRN PRN Reason: Secretions or pulm congestion Stop: 04/06/25 15:48 Diclofenac Sodium (Diclofenac Sod 1% Gel 100 Gm Tube) 2 gm EXT Q6H PRN; Protocol PRN Reason: leg pain Stop: 03/25/25 04:51 Last Admin: 02/24/25 05:59 Dose: 2 gm Docusate Sodium (Docusate Sodium 100 Mg Cap) 100 mg PO BID CHRISTINE Stop: 03/22/25 20:59 Last Admin: 03/13/25 08:15 Dose: Not Given Glycopyrrolate (Glycopyrrolate 0.2 Mg/Ml Vial) 0.4 mg IV Q4H PRN PRN Reason: Rattling Secretions or Pulm Congestion Stop: 04/06/25 15:48 Haloperidol (Haloperidol Oral Soln 2 Mg/Ml) 0.5 mg PO Q4H PRN PRN Reason: Anxiety/Agitation Stop: 04/06/25 15:48 Heparin Sodium (Porcine) (Heparin 100 Unit/Ml 5ml Flush) 5 ml FLUSH PRN PRN PRN Reason: Flush Stop: 03/23/25 05:53 Last Admin: 03/01/25 08:45 Dose: 5 ml Hyoscyamine (Hyoscyamine Sulfate 0.125 Mg Tab) 0.125 mg SL Q4H PRN PRN Reason: Secretions or Pulm Congestion Stop: 04/06/25 15:48 Lorazepam 0.5 mg/ Syringe 0.5 mls @ 2 mls/min IV Q4H PRN PRN Reason: Anxiety/Agitation Stop: 04/06/25 15:48 Lactobacillus Acidophilus (Advanced Probiotic 625 Mg Capsule) 1,250 mg PO DAILY [facility] Stop: 03/24/25 15:29 Last Admin: 03/13/25 08:15 Dose: Not Given Magnesium Chloride (Magnesium Chloride W/Calcium 64mg Delayed Rel Tab) 64 mg PO TID CHRISTINE Stop: 03/22/25 20:59 Last Admin: 03/13/25 13:22 Dose: Not Given Magnesium Hydroxide (Magnesium Hydroxide Susp 30 Ml Udc) 30 ml PO Q12H PRN PRN Reason: Constipation Stop: 03/22/25 15:33 Melatonin (Melatonin 3 Mg Tab) 3 mg PO HS PRN PRN Reason: Sleep Stop: 03/22/25 19:30 Last Admin: 03/05/25 21:06 Dose: 3 mg Metoprolol Succinate (Metoprolol Succ 25mg Ext Rel Tab) 12.5 mg PO BID [facility] Stop: 04/01/25 20:59 Last Admin: 03/13/25 08:15 Dose: Not Given Mirtazapine (Mirtazapine Tab 15 Mg Tab) 7.5 mg PO HS [facility] Stop: 03/23/25 20:59 Last Admin: 03/12/25 21:22 Dose: Not Given Morphine Sulfate (Morphine Sulfate 10 Mg/0.5 Ml Udp) 5 mg PO Q3H PRN PRN Reason: Pain or Respiratory Distress Stop: 03/21/25 15:48 Last Admin: 03/13/25 10:58 Dose: 5 mg Morphine Sulfate (Morphine Sulfate 2 Mg/Ml Carp) 2 mg IV Q2H PRN PRN Reason: Pain or Respiratory Distress Stop: 03/21/25 15:48 Ondansetron HCl (Ondansetron Inj 2 Mg/Ml 2 Ml Vial) 4 mg IV Q6H PRN PRN Reason: Nausea Stop: 03/22/25 15:33 Ondansetron HCl (Ondansetron Inj 2 Mg/Ml 2 Ml Vial) 4 mg IV Q4H PRN PRN Reason: Nausea &/or Vomiting Stop: 04/06/25 15:48 Pantoprazole Sodium (Pantoprazole 40 Mg Tab) 40 mg PO BID [facility] Stop: 03/22/25 20:59 Last Admin: 03/13/25 08:16 Dose: Not Given Polyethylene Glycol (Polyethylene (Miralax) 17 Gm Pack) 17 gm PO DAILY PRN PRN Reason: Constipation Stop: 03/22/25 15:33 Sertraline HCl (Sertraline Hcl 50 Mg Tablet) 25 mg PO QAM [facility] Stop: 03/23/25 12:44 Last Admin: 03/13/25 08:16 Dose: Not Given PG Care Time/CCT Total # of Minutes Spent Total Time Spent with Patient: Total time spent is greater than 50% in coordination of care (as documented) at patient's floor/unit and/or counseling patient: Advanced Care Planning 78273 Advanced Care Planning 30 Min [place] [address] SUB INP/OBS CARE 2/35MIN Patient Type Established History Expanded Problem Focused Exam Expanded Problem Focused Medical Decision Making Moderate Complexity Diagnoses Weakness generalized R53.1 Adult failure to thrive syndrome R62.7 Palliative care by specialist Z51.5 Comfort measures only status Z51.5 Need for comfort care Additional Codes Advanced Care Planning - 22283 Advanced Care Planning 30 Min: 04147 Advanced Care Planning 30 Min ([id number])
--- NOTE | 2025-03-13 14:05 | Discharge Summary ---
Date of Service March 13, 2025 Admission HPI Per Admitting Provider Patient is a 79y/o F with PMHx significant for malignant neoplasm of ovary, prediabetes, HLD, pulmonary hypertension, chronic systolic heart failure, CAD, HTN, nonrheumatic mitral valve regurgitation, vitamin D deficiency, GERD, malignant neoplasm of large intestine and rectum, senile osteoporosis, malignant neoplasm of peritoneum, chronic PE anticoagulated on Eliquis, malignant neoplasm of intrapelvic lymph nodes, adjustment disorder with depressed mood, chronic depression with insomnia and hyponatremia/SIADH who presented to the ED via EMS due to inability to care for self. History obtained from the patient, discussion with ED provider and associated chart review. Admits to significant depression following the of her beloved cat, Orestes, last Wednesday. Has not eaten or drank much of anything since her cat's passing. States "I don't feel like being here anymore." On further questioning, however, denies any current suicidal ideations or thoughts of hurting herself. Has been urinating and passing bowels okay. Denies any dysuria or hematuria. No reported fevers. Lives in an apartment building in [facility]. Admits to not taking any of her medications for the past week. Has chronic pelvic and BLE pain after sustaining a fall several years ago, feels unchanged from baseline. Denies any recent falls. Has two close neighbors in her apartment complex that assist her with getting groceries, running errands. Not currently taking any antidepressants. Has a history of depression. Principal Diagnosis Metastatic ovarian cancer Failure to thrive Alcohol use disorder Chronic systolic CHF Hyponatremia Discharge Data Allergies Allergy/AdvReac Type Severity Reaction Status Date / Time diphenhydramine Allergy Severe Difficulty Verified 10/20/24 17:47 [From Benadryl] Breathing doxorubicin Allergy Severe CHEMO Verified 10/20/24 17:47 DRUG--UNKNOWN house dust Allergy Intermediate CONGESTION-ODORS, Verified 10/20/24 17:47 FUMES, DUST Consultations 02/20/25 12:04 Consult Psychiatry Routine 02/20/25 12:21 ED Decision to Admit Stat 02/24/25 08:39 Consult Nephrology Routine 02/28/25 06:09 Consult Gynecology Routine 03/06/25 12:32 Consult Palliative Care Routine Procedures Performed Laboratory Results WBC 9.93 K/ul (4.8-10.8) 03/02/25 10:24 RBC 3.18 M/uL (4.20-5.40) L 03/02/25 10:24 Hgb 8.9 g/dL (12.0-16.0) L 03/02/25 10:24 Hct 28.6 % (37.0-47.0) L 03/02/25 10:24 MCV 89.9 fL (80.0-100.0) 03/02/25 10:24 MCH 28.0 pg (25.0-34.0) 03/02/25 10:24 MCHC 31.1 g/dL (32.0-36.0) L 03/02/25 10:24 RDW Std Deviation 48.7 fL (36.4-46.3) H 03/02/25 10:24 RDW Coeff of Cain 14.7 % (11.5-14.5) H 03/02/25 10:24 Plt Count 354 K/uL (130-400) 03/02/25 10:24 MPV 10.0 fL (9.4-12.4) 03/02/25 10:24 Immature Gran % (Auto) 0.8 % 02/20/25 09:31 Neut % (Auto) 83.9 % 02/20/25 09:31 Lymph % (Auto) 4.9 % 02/20/25 09:31 Loving % (Auto) 9.4 % 02/20/25 09:31 Eos % (Auto) 0.6 % 02/20/25 09:31 Baso % (Auto) 0.4 % 02/20/25 09:31 Neut # (Auto) 13.09 K/uL (1.40-6.50) H 02/20/25 09:31 Lymph # (Auto) 0.77 K/uL (1.20-3.40) L 02/20/25 09:31 Loving # (Auto) 1.47 K/uL (0.11-0.59) H 02/20/25 09:31 Eos # (Auto) 0.09 K/uL (0.00-0.50) 02/20/25 09:31 Baso # (Auto) 0.06 K/uL (0.00-0.20) 02/20/25 09:31 Immature Gran # (Auto) 0.13 K/uL (0.01-0.20) 02/20/25 09:31 Sodium 149 mmol/L (136-145) H 03/07/25 14:34 Potassium 4.1 mmol/L (3.5-5.1) 03/07/25 14:34 Chloride 124 mmol/L (98-107) H 03/07/25 14:34 Carbon Dioxide 17 mmol/L (21-32) L 03/07/25 14:34 Anion Gap 8 (3-11) 03/07/25 14:34 BUN 44 mg/dl (6-23) H 03/07/25 14:34 Creatinine 1.09 mg/dl (0.6-1.2) D 03/07/25 14:34 Est Cr Clr Drug Dosing 24.8 ml/min 03/07/25 14:34 eGFR 52.32 03/07/25 14:34 BUN/Creatinine Ratio 40.4 (10-20) H 03/07/25 14:34 Glucose 81 mg/dl (70-99(Fasting)) 03/07/25 14:34 Lactate 1.1 mmol/L (0.4-2.0) 02/20/25 14:06 Calcium 8.8 mg/dl (8.6-10.3) 03/07/25 14:34 Phosphorus 3.4 mg/dl (2.5-4.9) 03/07/25 14:34 Magnesium 2.0 mg/dl (1.7-2.4) 03/07/25 14:34 Total Bilirubin 0.4 mg/dl (0.2-1.0) 02/20/25 09:31 AST 57 U/L (13-39) H 02/20/25 09:31 ALT 28 U/L (7-52) 02/20/25 09:31 Alkaline Phosphatase 559 U/L (34-104) H 02/20/25 09:31 Total Creatine Kinase 34 U/L (26-192) 02/20/25 09:31 Total Protein 6.4 gm/dl (6.0-8.3) 02/20/25 09:31 Albumin 2.9 gm/dl (3.4-5.0) L 02/20/25 09:31 Globulin 3.5 gm/dl (2.5-4.0) 02/20/25 09: Albumin/Globulin Ratio 0.8 (0.9-2) L 02/20/25 09:31 Procalcitonin 2.60 ng/ml (0-0.5) H 02/20/25 15:53 TSH 3.660 uIu/ml (0.300-4.500) 02/20/25 09: Urine Color Yellow 02/20/25 11:31 Urine Appearance Cloudy (Clear) A 02/20/25 11:31 Urine pH 5.5 (4.5-7.5) 02/20/25 11: Ur Specific [place] 1.018 (1.000-1.030) 02/20/25 11:31 Urine Protein 3+ (Negative) H 02/20/25 11:31 Urine Glucose (UA) Negative (Negative) 02/20/25 11:31 Urine Ketones Trace (Negative) H 02/20/25 11:31 Urine Blood 2+ (Negative) H 02/20/25 11:31 Urine Nitrite Negative (Negative) 02/20/25 11:31 Urine Bilirubin Negative (Negative) 02/20/25 11:31 Urine Urobilinogen Negative (Negative) 02/20/25 11:31 Ur Leukocyte Esterase 2+ (Negative) H 02/20/25 11:31 Urine WBC (Auto) >50 /hpf (0-5) H 02/20/25 11:31 Urine RBC (Auto) 6-10 /hpf (0-2) H 02/20/25 11:31 U Hyaline Cast (Auto) >20 /lpf (0-2) H 02/20/25 11:31 U Epithel Cells (Auto) 3-5 /hpf (0-2) H 02/20/25 11:31 Urine Bacteria (Auto) None Seen (None Seen) 02/20/25 11: Hyaline Casts Present /lpf (None Presnt) A 02/20/25 11: Granular Casts Present /lpf (None Prsent) A 02/20/25 11:31 Urine Comment 02/20/25 11:31 Salicylates < 3.0 mg/dl (3.0-30) L 02/20/25 09: Urine Opiates Screen Neg (Neg) 02/20/25 11:31 Ur Methadone, Qual Neg (Neg) 02/20/25 11:31 Urine Fentanyl Screen Neg (Neg) 02/20/25 11:31 Acetaminophen < 3 ug/ml (10-30) L 02/20/25 09:31 Urine Barbiturates Neg (Neg) 02/20/25 11:31 Ur Phencyclidine (PCP) Neg (Neg) 02/20/25 11:31 U Amphetamin/Meth Scrn Neg (Neg) 02/20/25 11:31 MDMA (Ecstasy) Screen Neg (Neg) 02/20/25 11:31 U Benzodiazepines Scrn Neg (Neg) 02/20/25 11:31 Ur Cocaine Metabolite Neg (Neg) 02/20/25 11:31 U Marijuana (THC) Screen Neg (Neg) 02/20/25 11:31 Ethyl Alcohol mg/dL < 10.0 mg/dl (<10.0) 02/20/25 09:31 SARS-CoV-2, RNA, NAAT NEGATIVE (NEGATIVE) 02/20/25 09:35 IMP Carbapenemase (VIRGEN) NOT DETECTED (NotDetected) 02/28/25 14:05 KPC Carbapenemase (VIRGEN) NOT DETECTED (NotDetected) 02/28/25 14:05 NDM Carbapenemase (VIRGEN) NOT DETECTED (NotDetected) 02/28/25 14:05 OXA Carbapenemase (VIRGEN) NOT DETECTED (NotDetected) 02/28/25 14:05 VIM Carbapenemase (VIRGEN) NOT DETECTED (NotDetected) 02/28/25 14:[address] 02/20/25 09:26 CT head/brain wo con CLINICAL HISTORY: 79 years-old Female with psych clearance. Acutely altered mental status TECHNIQUE: Multiple axial CT images of the head were obtained without contrast. A dose lowering technique was utilized adhering to the principles of ALARA. CT DOSE: 625.8 mGy.cm COMPARISON: 10/20/2024 FINDINGS: No acute intracranial hemorrhage, midline shift, intracranial mass, hydrocephalus, territorial ischemia or abnormal extra-axial collection. Involutional changes with white matter hypodensities suggestive of chronic microvascular scheme disease. The calvarium is intact. Prior bilateral lens repair. Paranasal sinus disease includes near complete opacification of the right maxillary sinus with mild mucoperiosteal thickening of the left maxillary sinus. IMPRESSION: No acute intracranial abnormality. ACT 112: Negative or not required by law. The above report was generated using voice recognition software. It may contain grammatical, syntax or spelling errors. Electronically signed by: Zeferino Solano M.D. 02/20/2025 11:37 AM Chest X-Ray 02/21/25 17:19 EXAM: Portable AP chest radiograph TECHNIQUE: AP portable radiograph of the chest was obtained. INDICATION: Shortness of breath Comparison: Chest radiograph October 24, 2024. FINDINGS: LINES and TUBES: Left-sided Port-A-Cath with tip projecting over the superior cavoatrial junction. CARDIOVASCULAR: Cardiac silhouette is stably enlarged. Atherosclerosis of the thoracic aorta. LUNGS/PLEURA: Moderate interstitial pulmonary edema. There are worsened perihilar densities that may represent alveolar component of pulmonary edema or multifocal pneumonia. No significant pleural fluid. No discernible pneumothorax. OSSEOUS/OTHER: No displaced acute osseous process identified. Surgical clips over the right axilla/chest wall. IMPRESSION: Redemonstration of CHF Worsened perihilar densities that may represent alveolar component of pulmonary edema or multifocal pneumonia. Electronically signed by Kameron Faye 02-21-2025 7:18 PM Ordered Studies 02/20/25 09:26 CT head/brain wo con Stat Hospital Course (1) Acute dehydration: (2) Hypernatremia: (3) Adult failure to thrive syndrome: (4) Hypokalemia: Plan Patient is a 79y/o F with PMHx significant for malignant neoplasm of ovary, prediabetes, HLD, pulmonary hypertension, emphysema, chronic systolic heart failure, CAD, HTN, nonrheumatic mitral valve regurgitation, vitamin D deficiency, GERD, malignant neoplasm of large intestine and rectum, senile osteoporosis, malignant neoplasm of peritoneum, chronic PE anticoagulated on Eliquis, malignant neoplasm of intrapelvic lymph nodes, adjustment disorder with depressed mood, chronic depression with insomnia and hyponatremia/SIADH who presented to the ED via EMS due to inability to care for self. 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 Severe protein calorie malnutrition Hypokalemia Hypomagnesemia HTN NSVT/PAT Alcohol use disorder Suspected alcohol withdrawal Nodular focus of the basal RLL Abnormal thoracic and lumbar CT imaging noted last admission in October 2024 Medication noncompliance Chronic PE Chronic systolic CHF Moderate to severe mitral regurgitation Nonischemic cardiomyopathy HLD GERD History of bilateral breast cancer S/p surgery and chemoradiation History of metastatic ovarian cancer S/p debulking surgery and chemoradiation Despite aggressive management, patient showed no improvement Continues to refuse medications, noncompliance Palliative care on board Was transition to comfort measures only. Patient's POA aware, agrees with plan Continue comfort medications as needed Plan to discharge to SNF with hospice when accepted Waiting for placement Continue current management Palliative care following Was informed by RN that patient ceased breathing at around 1330. On comfort measures only. On exam patient had no audible breath sounds, heart sounds, no response to sternal rub and pupils are nonreactive, dilated. Patient was pronounced . Total Time Total Time Spent Total Time Spent (In Minutes): 34 minutes Discharge Plan Discharge Items Patient Disposition: Other Date/Time: 03/13/25 13:30
== END 2025-03-13 17:06 | disposition expired | DRG 640 ==
LOC: ED 08:40 → SUATTDRO 12:35 → 2N 12:35 → 3N 03-10 11:35